=== PATIENT | male | born 1945 | race Caucasian/White ===

== ENCOUNTER 2019-04-02 11:15 | Day surgery (SDC) | payer MEDICARE ==
[2019-03-31 17:42] VITALS: BMI 30.8
[~2019-04-02 11:15] MED LIST: ALBUTEROL NEB (CONC) 2.5 MG/0.5 ML INHALATION ONE; ATROPINE SULFATE 0.4 MG/ML 1 ML VIAL IM ONE; LACTATED RINGERS 1,000 ML IV SCH; LIDOCAINE 1% 20 ML VIAL (10MG/ML) FOR IV START INTRADERMA PRN; LIDOCAINE 2% (PF) 20 MG/ML 5 ML VIAL INHALATION ONE; LIDOCAINE VISCOUS 300 MG/15 ML CUP MUCOUS MEM ONE; SODIUM CHLORIDE 0.9% 1,000 ML IV SCH
[2019-04-02 11:38] VITALS: RESP 16; TEMP 98.5
[2019-04-02] MEDS ORDERED: MIDAZOLAM 2 MG/2 ML VIAL ONE (12:33)
[2019-04-02] MEDS ORDERED: PROPOFOL 10 MG/ML 20 ML VIAL IV ONE (12:33)
[2019-04-02] MEDS ORDERED: fentaNYL (PF) 50 MCG/ML 2 ML AMP ONE (12:33)
[2019-04-02] MEDS ORDERED: LIDOCAINE 2% INJ 20 MG/ML INTRATRACH ONE (12:48)
[2019-04-02 13:17] VITALS: BP 133/73; PULSE 86
[2019-04-02 17:05] LABS: Appearance,BF Cloudy; Color,BF Colorless
[2019-04-02 18:30] LABS: Nucleated Cells, Body Fluid 856 /uL; RBC, Body Fluid 11 /uL
[2019-04-02 18:32] LABS: Mononuclear WBC,Body Fluid 1 %; Polynuclear WBC,Body Fluid 99 %; Total Cells Counted,Body Fluid 100
--- NOTE | 2019-04-02 23:47 | PCN ---
PROCEDURE NOTE PROCEDURE: Bronchoscopy, airway examination, therapeutic lavage, bronchoalveolar lavage, right middle lobe. PREOPERATIVE DIAGNOSIS: Chronic obstructive pulmonary disease exacerbation, retained secretions and purulent tracheobronchitis. POSTOPERATIVE DIAGNOSIS: Chronic obstructive pulmonary disease exacerbation, retained secretions and purulent tracheobronchitis. Magan Youssef CRNA, provided general anesthesia/unconscious sedation. PROCEDURE DESCRIPTION: The patient's procedure was done in room #1. There was informed consent. There was universal timeout. After the patient was adequately sedated and being fully monitored, the bronchoscope was inserted through the right nostril. It passed through the right nasopharynx into the oropharynx. The hypopharynx was identified and topicalized. The hypopharyngeal structures, including anterior commissure, true cords, false cords, arytenoids, piriform sinuses, right and left valleculae, all appeared relatively normal. There were some secretions noted in the hypopharynx. The glottic opening was topicalized. The bronchoscope was pushed through the glottic opening into the trachea. The trachea was full of secretions. They were purulent-looking. They were quite sticky. The trachea otherwise appeared relatively normal. The tracheal jp was sharp. Next, the right and left mainstem were topicalized. The right upper lobe and its 3 segments, the right middle lobe and its 2 segments, the right lower lobe and its 5 segments, the left upper lobe proper and its 2 segments, the lingula and its 2 segments, and the left lower lobe and its 4 segments were all evaluated. They had similar findings of diffuse moderate bronchitis throughout. There was no dominant mass or tumor. There was erythema and hyperemia of the airways. There was some mucosal friability. There were thick secretions noted throughout. The secretions were suctioned. The bronchoscope was wedged into the right middle lobe. The BAL took place. The patient tolerated the procedure well. Roughly 30 mL was recovered. In addition, additional saline was used to cleanse the rest of the airways. There were no immediate complications. There was no bleeding. The patient tolerated the procedure well and the bronchoscope was withdrawn. I did speak to the patient's about the findings. Additional recommendations and suggestions are forthcoming. MMODL / IJN: [id number] /
== END 2019-04-02 13:34 | disposition home or self-care (01) ==
LOC: ORWHC2ENDO 11:15
PROVIDERS: ATTEND Internal Medicine Critical Care Medicine
DX: J44.1 Chronic obstructive pulmonary disease with (acute) exacerbation (principal); J44.0 Chronic obstructive pulmonary disease with (acute) lower respiratory infection; J20.9 Acute bronchitis, unspecified; I10 Essential (primary) hypertension; G47.33 Obstructive sleep apnea (adult) (pediatric); Z87.891 Personal history of nicotine dependence; F32.9 Major depressive disorder, single episode, unspecified; G89.4 Chronic pain syndrome; Z79.51 Long term (current) use of inhaled steroids; Z79.899 Other long term (current) drug therapy; E66.9 Obesity, unspecified; Z68.32 Body mass index [BMI] 32.0-32.9, adult; Z80.1 Family history of malignant neoplasm of trachea, bronchus and lung; Z82.49 Family history of ischemic heart disease and other diseases of the circulatory system
CPT/HCPCS: 94640; 88108; 88305; 89050; 87252; 87070; 87205; 87116; 87102; 87206; 31624; J2001 ×2; J2250; J0461; J3010; J2704; 87496; 87498; 87502; 87529; 87634; 87798

== ENCOUNTER → 2019-07-25 | Outpatient (CLI) | payer MEDICARE | END | disposition home or self-care (01) | LOC: CPPFTMAIN 14:09 | PROVIDERS: ATTEND Internal Medicine Critical Care Medicine | DX: J43.9 Emphysema, unspecified (principal); R94.2 Abnormal results of pulmonary function studies | CPT/HCPCS: 94060; 94726; 94729 ==

== ENCOUNTER 2021-10-13 11:48 | Inpatient (IN) | payer MEDICARE ==
[2021-10-13] MEDS ORDERED: methylPREDNISolone SOD SUCCI 125 MG/2 ML VIAL IV STA (11:59)
[2021-10-13] MEDS ORDERED: ALBUTEROL HFA INHALER INHALATION STA (11:59)
--- NOTE | 2021-10-13 12:43 | ED ---
General Adult HPI - General Chief complaint: Shortness of Breath Stated complaint: low O2 Time Seen by Provider: 10/13/21 11:56 Source: patient, RN notes reviewed, old records reviewed Mode of arrival: wheelchair Limitations: no limitations - History of Present Illness Initial comments: 76 yo history of COPD presenting with 2 weeks of worsening cough and dyspnea. Patient is found to be in the mid 70s on initial pulse ox. He denies central chest pain. He denies fever. He is fully vaccinated against coronavirus. He denies lower extremity pain or swelling. He does follow with pulmonology regarding his COPD. - Related Data Home Medications Medication Instructions Recorded Confirmed Budesonide-Formot 160-4.5 Mcg 2 puff INHALATION RT-BID PRN 03/31/19 10/13/21 [Symbicort 160-4.5 Mcg Inhaler] HYDROcodone/APAP 10-325MG [Tower 1 tab PO Q6H 03/31/19 10/13/21 10-325] Metoprolol Succinate [Toprol XL] 25 mg PO DAILY@1600 03/31/19 10/13/21 Morphine Sulfate ER [Ms Contin] 15 mg PO BID@0600,1600 03/31/19 10/13/21 Pramipexole [Mirapex] 1 mg PO BID@0600,1600 03/31/19 10/13/21 Sertraline [Zoloft] 100 mg PO DAILY@1600 03/31/19 10/13/21 Tiotropium 18 Mcg/Puff [Spiriva] 1 cap INHALATION RT-DAILY 03/31/19 10/13/21 lisinopriL [Zestril] 10 mg PO DAILY@1600 03/31/19 10/13/21 Albuterol Inhaler [Ventolin Hfa 2 puff INHALATION RT-QID PRN 10/13/21 10/13/21 Inhaler] Allergies Allergy/AdvReac Type Severity Reaction Status Date / Time No Known Allergies Allergy Verified 10/13/21 12:55 Review of Systems ROS Statement: Those systems with pertinent positive or pertinent negative responses have been documented in the HPI. ROS Other: All systems not noted in ROS Statement are negative. Past Medical History Past Medical History: Cancer, COPD, Hypertension, Pneumonia, Sleep Apnea/CPAP/BIPAP Additional Past Medical History / Comment(s): degenerative disk disease, skin cancer History of Any Multi-Drug Resistant Organisms: None Reported Past Surgical History: Orthopedic Surgery Additional Past Surgical History / Comment(s): disk removed from neck, cyst removed from tailbone Past Anesthesia/Blood Transfusion Reactions: Previous Problems w/ Anesthesia Additional Past Anesthesia/Blood Transfusion Reaction / Comment(s): "blood pressure dropped" Past Psychological History: No Psychological Hx Reported Smoking Status: Former smoker Past Alcohol Use History: None Reported Past Drug Use History: None Reported - Past Family History Mother Family Medical History: No Reported History General Exam Limitations: no limitations General appearance: alert, in distress Head exam: Present: atraumatic, normocephalic Eye exam: Present: normal appearance, PERRL ENT exam: Present: normal exam Neck exam: Present: normal inspection. Absent: tenderness, meningismus Respiratory exam: Present: respiratory distress, wheezes, rhonchi Cardiovascular Exam: Present: tachycardia, irregular rhythm GI/Abdominal exam: Present: soft. Absent: distended, tenderness, guarding Extremities exam: Present: normal inspection, normal capillary refill. Absent: pedal edema Neurological exam: Present: alert, oriented X3, CN II-XII intact. Absent: motor sensory deficit Psychiatric exam: Present: normal affect, normal mood Skin exam: Present: warm, dry, intact, pallor. Absent: cyanosis, diaphoretic Course Vital Signs 10/13/21 10/13/21 10/13/21 11:50 12:05 12:35 Temperature 97.8 F Pulse Rate 115 H 108 H Respiratory 30 H 30 H 18 Rate Blood Pressure 139/74 88/58 O2 Sat by Pulse 75 L 95 Oximetry 10/13/21 13:11 Temperature Pulse Rate 112 H Respiratory 22 Rate Blood Pressure 81/65 O2 Sat by Pulse 94 L Oximetry - Reevaluation(s) Reevaluation #1: 10/13/21 14:50 Patient reevaluated, vital signs have improved. He is in sinus rhythm. Blood pressure is 111 systolic. Oxygenation in the mid to high 90s on BiPAP. EKG Findings - EKG Comments: EKG Findings:: EKG: Atrial fibrillation with RVR, rate of 138, QRS duration 74, QTC 5:15, no ST segment elevation. Medical Decision Making - Medical Decision Making 76-year-old male presenting in extremis. Patient is hypotensive, tachycardic and hypoxic upon arrival. He's been sick for approximately 2 weeks. He has bi lateral wheezing and rhonchi. She's initially started on nonrebreather awaiting for BiPAP for respiratory support in the emergency department. His chest x-ray shows a large airspace disease on the right and to a lesser degree on the left. No pneumothorax. Patient has significantly elevated white blood cell count at 25.6. He has an elevated d-dimer 7.48. CT angiography is performed to rule out pulmonary embolism. This is negative. Does have consolidated pneumonia possibly edema and a right-sided effusion. Patient has minimally elevated creatinine 1.53. Lactic acid 3.8. He has an elevated troponin 2.06. I feel this is likely related to hypoxia and demand secondary to atrial fibrillation. Case discussed with Dr. Griffin Patient was initially in atrial fibrillation with RVR does spontaneously convert to sinus rhythm with initial treatment. Given the elevated troponin is maintai gerardo on heparin. Repeat cardiac enzymes will be ordered. Dr. Betancourt is aware. Echo was ordered. - Lab Data Result diagrams: 10/13/21 12:12 10/13/21 12:53 Lab Results 10/13/21 10/13/21 10/13/21 Range/Units 12:12 12:12 12:12 WBC 25.6 H (3.8-10.6) k/uL RBC 4.82 (4.30-5.90) m/uL Hgb 15.9 (13.0-17.5) gm/dL Hct 48.6 (39.0-53.0) % MCV 100.9 H (80.0-100.0) fL MCH 33.0 (25.0-35.0) pg MCHC 32.7 (31.0-37.0) g/dL RDW 13.9 (11.5-15.5) % Plt Count 324 (150-450) k/uL MPV 8.4 Neutrophils % (Manual) 40 % Band Neuts % (Manual) 2 % Lymphocytes % (Manual) 12 % Monocytes % (Manual) 6 % Eosinophils % (Manual) 41 % Neutrophils # (Manual) 10.70 H (1.3-7.7) k/uL Lymphocytes # (Manual) 3.07 (1.0-4.8) k/uL Monocytes # (Manual) 1.54 H (0-1.0) k/uL Eosinophils # (Manual) 10.50 H (0-0.7) k/uL Nucleated RBCs 3 H (0-0) /100 WBC Manual Slide Review Performed Macrocytosis Slight PT 14.1 H (9.0-12.0) sec INR 1.4 H (<1.2) APTT 27.5 (22.0-30.0) sec D-Dimer 7.48 H (<0.60) mg/L FEU Sodium (137-145) mmol/L Potassium (3.5-5.1) mmol/L Chloride (98-107) mmol/L Carbon Dioxide (22-30) mmol/L Anion Gap mmol/L BUN (9-20) mg/dL Creatinine (0.66-1.25) mg/dL Est GFR (CKD-EPI)AfAm (>60 ml/min/1.73 sqM) Est GFR (CKD-EPI)NonAf (>60 ml/min/1.73 sqM) Glucose (74-99) mg/dL Lactic Ac Sepsis Rflx Plasma Lactic Acid Yobani 3.8 H* (0.7-2.0) mmol/L Calcium (8.4-10.2) mg/dL Magnesium (1.6-2.3) mg/dL Total Bilirubin (0.2-1.3) mg/dL AST (17-59) U/L ALT (4-49) U/L Alkaline Phosphatase (38-126) U/L Troponin I (0.000-0.034) ng/mL NT-Pro-B Natriuret Pep pg/mL Total Protein (6.3-8.2) g/dL Albumin (3.5-5.0) g/dL Coronavirus (PCR) (Not Detectd) 10/13/21 10/13/21 10/13/21 Range/Units 12:12 12:53 12:53 WBC (3.8-10.6) k/uL RBC (4.30-5.90) m/uL Hgb (13.0-17.5) gm/dL Hct (39.0-53.0) % MCV (80.0-100.0) fL MCH (25.0-35.0) pg MCHC (31.0-37.0) g/dL RDW (11.5-15.5) % Plt Count (150-450) k/uL MPV Neutrophils % (Manual) % Band Neuts % (Manual) % Lymphocytes % (Manual) % Monocytes % (Manual) % Eosinophils % (Manual) % Neutrophils # (Manual) (1.3-7.7) k/uL Lymphocytes # (Manual) (1.0-4.8) k/uL Monocytes # (Manual) (0-1.0) k/uL Eosinophils # (Manual) (0-0.7) k/uL Nucleated RBCs (0-0) /100 WBC Manual Slide Review Macrocytosis PT (9.0-12.0) sec INR (<1.2) APTT (22.0-30.0) sec D-Dimer (<0.60) mg/L FEU Sodium (137-145) mmol/L Potassium (3.5-5.1) mmol/L Chloride (98-107) mmol/L Carbon Dioxide (22-30) mmol/L Anion Gap mmol/L BUN (9-20) mg/dL Creatinine (0.66-1.25) mg/dL Est GFR (CKD-EPI)AfAm (>60 ml/min/1.73 sqM) Est GFR (CKD-EPI)NonAf (>60 ml/min/1.73 sqM) Glucose (74-99) mg/dL Lactic Ac Sepsis Rflx Plasma Lactic Acid Yobani (0.7-2.0) mmol/L Calcium (8.4-10.2) mg/dL Magnesium (1.6-2.3) mg/dL Total Bilirubin (0.2-1.3) mg/dL AST (17-59) U/L ALT (4-49) U/L Alkaline Phosphatase (38-126) U/L Troponin I 2.060 H* (0.000-0.034) ng/mL NT-Pro-B Natriuret Pep 6120 pg/mL Total Protein (6.3-8.2) g/dL Albumin (3.5-5.0) g/dL Coronavirus (PCR) Not Detected (Not Detectd) 10/13/21 10/13/21 Range/Units 12:53 12:56 WBC (3.8-10.6) k/uL RBC (4.30-5.90) m/uL Hgb (13.0-17.5) gm/dL Hct (39.0-53.0) % MCV (80.0-100.0) fL MCH (25.0-35.0) pg MCHC (31.0-37.0) g/dL RDW (11.5-15.5) % Plt Count (150-450) k/uL MPV Neutrophils % (Manual) % Band Neuts % (Manual) % Lymphocytes % (Manual) % Monocytes % (Manual) % Eosinophils % (Manual) % Neutrophils # (Manual) (1.3-7.7) k/uL Lymphocytes # (Manual) (1.0-4.8) k/uL Monocytes # (Manual) (0-1.0) k/uL Eosinophils # (Manual) (0-0.7) k/uL Nucleated RBCs (0-0) /100 WBC Manual Slide Review Macrocytosis PT (9.0-12.0) sec INR (<1.2) APTT (22.0-30.0) sec D-Dimer (<0.60) mg/L FEU Sodium 138 (137-145) mmol/L Potassium 4.2 (3.5-5.1) mmol/L Chloride 105 (98-107) mmol/L Carbon Dioxide 24 (22-30) mmol/L Anion Gap 9 mmol/L BUN 38 H (9-20) mg/dL Creatinine 1.53 H (0.66-1.25) mg/dL Est GFR (CKD-EPI)AfAm 51 (>60 ml/min/1.73 sqM) Est GFR (CKD-EPI)NonAf 44 (>60 ml/min/1.73 sqM) Glucose 102 H (74-99) mg/dL Lactic Ac Sepsis Rflx Y Plasma Lactic Acid Yobani (0.7-2.0) mmol/L Calcium 8.8 (8.4-10.2) mg/dL Magnesium 2.4 H (1.6-2.3) mg/dL Total Bilirubin 1.1 (0.2-1.3) mg/dL AST 55 (17-59) U/L ALT 45 (4-49) U/L Alkaline Phosphatase 77 (38-126) U/L Troponin I (0.000-0.034) ng/mL NT-Pro-B Natriuret Pep pg/mL Total Protein 7.0 (6.3-8.2) g/dL Albumin 3.0 L (3.5-5.0) g/dL Coronavirus (PCR) (Not Detectd) Critical Care Time Critical Care Time: Yes Total Critical Care Time: 35 Disposition Clinical Impression: Acute exacerbation of chronic obstructive pulmonary disease, Pneumonia, Elevated troponin, Atrial fibrillation with RVR Disposition: ADMITTED IP TO THIS [facility] Condition: Serious Is patient prescribed a controlled substance at d/c from ED?: No Referrals: Aly Sultana DO [Primary Care Provider] - 1-2 days Decision to Admit Reason: Admit from EC Decision Date: 10/13/21 Decision Time: 14:54
[2021-10-13 12:46] LABS: HCT 48.6 % (39.0-53.0); HGB 15.9 gm/dL (13.0-17.5); MCHC 32.7 g/dL (31.0-37.0); MCV 100.9 fL (80.0-100.0); Macrocytosis Slight; Mean Platelet Volume 8.4; Platelet Count 324 k/uL (150-450); RBC 4.82 m/uL (4.30-5.90); RDW 13.9 % (11.5-15.5)
[2021-10-13 12:54] LABS: INR 1.4 (<1.2); Partial Thromboplastin Time 27.5 sec (22.0-30.0); Prothrombin Time 14.1 sec (9.0-12.0)
--- NOTE | 2021-10-13 12:59 | XR ---
EXAMINATION TYPE: XR chest 1V portable DATE OF EXAM: 10/13/2021 COMPARISON: Chest x-ray 10/21/2013 HISTORY: Difficulty breathing, COPD and cough TECHNIQUE: Single frontal view of the chest is obtained. FINDINGS: Bilateral airspace disease is present on the right, present perihilar region on the left. There are overlying artifacts. Cardiac mediastinal silhouette is likely stable accounting for differe nces in technique. No evident pneumothorax or pleural effusion. Rib deformities in the upper chest on the right seen on prior x-ray are not well seen. Right hemidiaphragm is again elevated. IMPRESSION: Correlate for pneumonia, edema and follow-up is recommended to resolution
[2021-10-13] MEDS ORDERED: SODIUM CHLORIDE 0.9% 500 ML 500 ML IV ONE (13:05)
[2021-10-13] MEDS ORDERED: cefTRIAXone IN SWFI 1,000 MG/10 ML SYRINGE IVP STA (13:06)
[2021-10-13] MEDS ORDERED: AZITHROMYCIN 500 MG in SODIUM CHLORIDE 0.9% 250 ML IVPB STA (13:06)
[2021-10-13 13:23] LABS: Band Neutrophils % 2 %; Neutrophils % (M) 40 %; Nucleated Red Blood Cells 3 /100 WBC (0-0); Total Cells Counted 200
[2021-10-13 13:24] LABS: Lymphocytes # (M) 3.07 k/uL (1.0-4.8); Monocytes # (M) 1.54 k/uL (0-1.0); WBC 25.6 k/uL (3.8-10.6)
[2021-10-13 13:40] LABS: Calcium 8.8 mg/dL (8.4-10.2); Magnesium 2.4 mg/dL (1.6-2.3); Potassium 4.2 mmol/L (3.5-5.1); Total Bilirubin 1.1 mg/dL (0.2-1.3)
[2021-10-13] MEDS ORDERED: ASPIRIN 325 MG TAB PO STA (13:55)
[2021-10-13] MEDS ORDERED: HEPARIN SODIUM 1,000 UN/ML (10ML VL) IV ONE (14:16)
--- NOTE | 2021-10-13 14:32 | CT ---
EXAMINATION TYPE: CT angio chest DATE OF EXAM: 10/13/2021 COMPARISON: Radiograph same day HISTORY: 76-year-old male positive d-dimer, shortness of breath, difficulty breathing TECHNIQUE: Contiguous axial scanning of the chest performed with IV Contrast, patient injected with 8 0 mL of Isovue 370. Coronal and sagittal MIP reconstructions performed. CT DLP: 641.2 mGycm Automated exposure control for dose reduction was used. FINDINGS: Heart upper limits of normal in size. No reflux of contrast into the hepatic veins. There is a small- to-moderate pericardial effusion measuring up to 1.1 cm along the left heart margin. Scattered LAD coronary artery calcifications. 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 Ectasia upper descending thoracic aorta 3.4 cm. Conventional arch vessel branching anatomy. Satisfactory opacification of the pulmonary arterial system. Some limitation due to mild breathing mo tion. No definite pulmonary embolus. Large caliber to the main right and left pulmonary arteries pam uring up to 3.3 and 3.0 cm, respectively. There is mediastinal and bilateral hilar lymphadenopathy. Paratracheal nodes measure up to 1.8 cm. AP window nodes measure up to 1 cm. Subcarinal node measures up to 4.9 x 2.6 cm. Left tracheobronchial angle node measures 5.2 x 1.8 cm. Left infrahilar node measures 3.3 cm. Right hilar nodes measure up to 3.1 cm. Left hilar nodes measure up to 1.9 cm. Lower left paraesophageal nodes measure up to 1.3 cm. In the visualized upper abdomen, gastric hepatic ligament node measures up to 1.2 cm. Moderate centrilobular emphysema. More advanced bullous change in the right upper lobe. There is patchy and confluent consolidation throughout the right lung along with small right effusion . Patchy and confluent consolidation left lower lobe and some portions of the posterior left upper lo be. Round lesion upper pole right kidney measures 2.6 cm, likely cysts. Facet and gallstone partially vis ualized measuring 2 cm. Bones: Degenerative changes of the left shoulder. Moderate degenerative disc disease throughout the t horacic spine. Dextroconvex curvature mid thoracic spine. IMPRESSION: 1. SOME BREATHING MOTION. NO DEFINITE PULMONARY EMBOLUS. 2. COPD WITH MODERATE EMPHYSEMA. MORE ADVANCED BULLOUS CHANGE IN THE RIGHT UPPER LOBE. PULMONARY XIOMARA RIAL HYPERTENSION. 3. EXTENSIVE PATCHY AND CONFLUENT CONSOLIDATION THROUGHOUT THE RIGHT LUNG WITH A SMALL RIGHT PLEURAL EFFUSION. LESSER DEGREE OF AIRSPACE DISEASE LEFT LOWER LOBE AND SOME PARTS OF THE POSTERIOR LEFT UPPE R LOBE. CORRELATE FOR POSSIBLE ETIOLOGIES SUCH MULTIFOCAL PNEUMONIA, PULMONARY EDEMA, DEVELOPING A RDS, ASPIRATION, OR ATYPICAL INFECTIONS. 4. THE PRESENCE OF A MEDIASTINAL BILATERAL HILAR LYMPHADENOPATHY MEASURING UP TO 5.2 CM MAKES ATYPICA L FUNGAL OR MYCOBACTERIAL INFECTION HIGHER ON THE DIFFERENTIAL. APPROPRIATE FOLLOW-UP RECOMMENDED FOR THE LYMPHADENOPATHY LYMPHOMA AND METASTATIC DISEASE ARE NOT EXCLUDED AT THIS TIME. 5. [id number] PERICARDIAL EFFUSION.
[2021-10-13] MEDS ORDERED: IPRATROPIUM-ALBUTEROL 3 ML NEB INHALATION PRN (14:46)
[2021-10-13] MEDS: SODIUM CHLORIDE 0.9% 1,000 ML IV SCH (14:48)
[2021-10-13] MEDS ORDERED: HYDROcodone/APAP 10-325MG 1 EACH TAB PO ONE (14:52)
[2021-10-13] MEDS ORDERED: HYDROcodone/APAP 10-325MG 1 EACH TAB PO PRN (14:52)
[2021-10-13] MEDS: DILTIAZEM 125 MG in SODIUM CHLORIDE 0.9% 100 ML IV SCH ×2 (15:04→22:34)
[2021-10-13] MEDS: HEPARIN SOD,PORK IN 0.45% NACL 25,000 UNIT in 0.45% NACL 1 250ML.BAG IV SCH (15:07)
[2021-10-13] MEDS: IPRATROPIUM-ALBUTEROL 3 ML NEB INHALATION SCH ×2 (16:30→20:16)
[2021-10-13] MEDS: methylPREDNISolone SOD SUCCI 125 MG/2 ML VIAL IV SCH (19:58)
[2021-10-13] MEDS ORDERED: LACTULOSE 20 GM/30 ML CUP PO PRN (23:40)
[2021-10-13] MEDS ORDERED: NALOXONE 0.4 MG/ML 1 ML VIAL IV PRN (23:40)
[2021-10-13] MEDS ORDERED: ONDANSETRON 4 MG/2 ML VIAL IVP PRN (23:40)
[2021-10-13] MEDS ORDERED: ACETAMINOPHEN TAB 325 MG TAB PO PRN (23:40)
[2021-10-13] MEDS ORDERED: CALCIUM CARBONATE 500 MG CHEWABLE PO PRN (23:40)
[2021-10-13] MEDS ORDERED: MELATONIN 3 MG TABLET PO PRN (23:40)
--- NOTE | 2021-10-13 23:41 | P.HPIM ---
History of Present Illness H&P Date: 10/13/21 Chief Complaint: Short of breath This is a pleasant 76-year-old patient of Dr. Sultana. Chronic stable medical conditions include hypertension, also sleep apnea, DJD, obesity. Depression, Patient presented increasing shortness of breath for 1 week, wheezing. Cough fever periods Sputum Production. Decrease Appetite Tired Rundown. Symptoms Became Progressively Worse. Found to Pulse Ox of 75% in the ER. Put on a BiPAP. Antibiotics. Bronchodilators. Review of systems: GEN.: Fever decrease appetite EYES: None HEENT: None NECK: None RESPIRATORY: As above CARDIOVASCULAR: None GASTROINTESTINAL: None GENITOURINARY: None MUSCULOSKELETAL: [As above LYMPHATICS: None HEMATOLOGICAL: None PSYCHIATRY: None NEUROLOGICAL: None Past medical history to include: COPD, hypertension, obstructive sleep apnea, DJD, skin cancer Social history: . Smoked for 30 years stopped in 1979. Family history: Reviewed, noncontributory to presentation Physical examination: VITAL SIGNS: 97.8, 115, 30, 139 with 74, 75% room air GENERAL: BMI 30.8, reclining bed, awake, short of breath. EYES: Pupils equal. Conjunctiva normal. HEENT: External appearance of nose and ears normal, oral cavity grossly normal. NECK: JVD unable to assess; masses not palpable. HEART: First and second heart sounds are normal; no edema. LUNGS: Respiratory rate increased decreased breath sounds, coarse crackles in the right site posteriorly. ABDOMEN: Soft, nontender, liver spleen not palpable, no masses palpable. PSYCH: Alert and oriented x3; mood and affect normal. MUSCULOSKELETAL:No Clubbing/cyanosis;muscles-grossly intact NEUROLOGICAL: Cranial nerves grossly intact; no facial asymmetry, power and sensation grossly intact. LYMPHATICS: No lymph nodes palpable in the axilla and neck INVESTIGATIONS, reviewed in the clinical context: White count 25.6 hemoglobin 15.9 platelets 324 increased neutrophils d-dimer 7.48 sodium 138 potassium 4.2. 38 creatinine 1.53 lactic acid 3.8 Troponin I 2.0, 1.7, 1.2 Coronavirus [PCR]: Not detected EKG tracing personally reviewed by me-atrial fibrillation ST-T wave changes, rate 138 Chest angiogram chest: Moderate emphysema. Extensive patchy and confluent consolidation throughout the right lung. Some of the left side 2. Hilar lymp hadenopathy. Chest x-ray film personally reviewed by me-extensive infiltrate on the right mid zone and some on the left side Assessment and plan: -Severe bilateral pneumonia morsel in the right site suspect gram-negative organism Cefepime 2 g every 8 -Severe sepsis from pneumonia IV fluids. Antibiotics. -Atrial fibrillation rapid ventricular rate Beta valente. 2-D echo. Consult cardiology. IV heparin. IV Cardizem drip IV heparin monitoring Follow PTT -Acute COPD exacerbation and a prior smoker DuoNeb. IV Solu-Medrol -Acute severe hypoxic respiratory failure from pneumonia Currently on BiPAP -Essential hypertension Cystoscopy 10 mg daily Toprol-XL 25 mg daily -Restless leg syndrome Mirapex 1 mg twice a day -Depression Zoloft 100 mg daily Primary osteoarthritis multiple joints bilaterally Ralston 10 every 6 IV cefepime. IV Solu-Medrol. Bronchodilators. Resume home medications. Consult pulmonary. BiPAP. Care was discussed with the patient. Given the complexity and severity of patient's condition expect the patient to be in the hospital at least for 2 overnights Past Medical History Past Medical History: Cancer, COPD, Hypertension, Pneumonia, Sleep Apnea/CPAP/BIPAP Additional Past Medical History / Comment(s): degenerative disk disease, skin cancer History of Any Multi-Drug Resistant Organisms: None Reported Past Surgical History: Orthopedic Surgery Additional Past Surgical History / Comment(s): disk removed from neck, cyst removed from tailbone Past Anesthesia/Blood Transfusion Reactions: Previous Problems w/ Anesthesia Additional Past Anesthesia/Blood Transfusion Reaction / Comment(s): "blood pressure dropped" Past Psychological History: No Psychological Hx Reported Smoking Status: Former smoker Past Alcohol Use History: None Reported Past Drug Use History: None Reported - Past Family History Mother Family Medical History: No Reported History Medications and Allergies Home Medications Medication Instructions Recorded Confirmed Type Budesonide-Formot 160-4.5 Mcg 2 puff INHALATION RT-BID PRN 03/31/19 10/13/21 History [Symbicort 160-4.5 Mcg Inhaler] HYDROcodone/APAP 10-325MG [Ralston 1 tab PO Q6H 03/31/19 10/13/21 History 10-325] Metoprolol Succinate [Toprol XL] 25 mg PO DAILY@1600 03/31/19 10/13/21 History Morphine Sulfate ER [Ms Contin] 15 mg PO BID@0600,1600 03/31/19 10/13/21 History Pramipexole [Mirapex] 1 mg PO BID@0600,1600 03/31/19 10/13/21 History Sertraline [Zoloft] 100 mg PO DAILY@1600 03/31/19 10/13/21 History Tiotropium 18 Mcg/Puff [Spiriva] 1 cap INHALATION RT-DAILY 03/31/19 10/13/21 History lisinopriL [Zestril] 10 mg PO DAILY@159903/31/19 10/13/21 History Albuterol Inhaler [Ventolin Hfa 2 puff INHALATION RT-QID PRN 10/13/21 10/13/21 History Inhaler] Allergies Allergy/AdvReac Type Severity Reaction Status Date / Time No Known Allergies Allergy Verified 10/13/21 12:55 Physical Exam Vitals: Vital Signs Temp Pulse Resp BP Pulse Ox 10/13/21 23:14 134 H 13 104/63 93 L 10/13/21 22:35 125 H 18 100/88 92 L 10/13/21 20:29 121 H 10/13/21 20:21 124 H 10/13/21 19:30 97.4 F L 101 H 20 119/94 94 L 10/13/21 18:25 120 H 20 116/95 93 L 10/13/21 17:10 102 H 20 136/90 93 L 10/13/21 16:05 82 20 113/87 93 L 10/13/21 15:10 65 20 118/55 95 10/13/21 14:10 70 20 112/82 94 L 10/13/21 13:11 112 H 22 81/65 94 L 10/13/21 12:35 108 H 18 88/58 95 10/13/21 12:05 30 H 10/13/21 11:50 97.8 F 115 H 30 H 139/74 75 L Intake and Output 10/13/21 10/13/21 10/14/21 14:59 22:59 06:59 Other: Weight 108.862 kg Results CBC & Chem 7: 10/13/21 12:12 10/13/21 12:53 Labs: Abnormal Lab Results - Last 24 Hours (Table) 10/13/21 10/13/21 10/13/21 Range/Units 12:12 12:12 12:12 WBC 25.6 H (3.8-10.6) k/uL MCV 100.9 H (80.0-100.0) fL Neutrophils # (Manual) 10.70 H (1.3-7.7) k/uL Monocytes # (Manual) 1.54 H (0-1.0) k/uL Eosinophils # (Manual) 10.50 H (0-0.7) k/uL Nucleated RBCs 3 H (0-0) /100 WBC PT 14.1 H (9.0-12.0) sec INR 1.4 H (<1.2) APTT (22.0-30.0) sec D-Dimer 7.48 H (<0.60) mg/L FEU BUN (9-20) mg/dL Creatinine (0.66-1.25) mg/dL Glucose (74-99) mg/dL Plasma Lactic Acid Yobani 3.8 H* (0.7-2.0) mmol/L Magnesium (1.6-2.3) mg/dL Troponin I (0.000-0.034) ng/mL Albumin (3.5-5.0) g/dL 10/13/21 10/13/21 10/13/21 Range/Units 12:53 12:53 15:23 WBC (3.8-10.6) k/uL MCV (80.0-100.0) fL Neutrophils # (Manual) (1.3-7.7) k/uL Monocytes # (Manual) (0-1.0) k/uL Eosinophils # (Manual) (0-0.7) k/uL Nucleated RBCs (0-0) /100 WBC PT (9.0-12.0) sec INR (<1.2) APTT (22.0-30.0) sec D-Dimer (<0.60) mg/L FEU BUN 38 H (9-20) mg/dL Creatinine 1.53 H (0.66-1.25) mg/dL Glucose 102 H (74-99) mg/dL Plasma Lactic Acid Yobani (0.7-2.0) mmol/L Magnesium 2.4 H (1.6-2.3) mg/dL Troponin I 2.060 H* 1.740 H* (0.000-0.034) ng/mL Albumin 3.0 L (3.5-5.0) g/dL 10/13/21 10/13/21 Range/Units 18:25 20:30 WBC (3.8-10.6) k/uL MCV (80.0-100.0) fL Neutrophils # (Manual) (1.3-7.7) k/uL Monocytes # (Manual) (0-1.0) k/uL Eosinophils # (Manual) (0-0.7) k/uL Nucleated RBCs (0-0) /100 WBC PT (9.0-12.0) sec INR (<1.2) APTT 44.1 H (22.0-30.0) sec D-Dimer (<0.60) mg/L FEU BUN (9-20) mg/dL Creatinine (0.66-1.25) mg/dL Glucose (74-99) mg/dL Plasma Lactic Acid Yobani (0.7-2.0) mmol/L Magnesium (1.6-2.3) mg/dL Troponin I 1.240 H* (0.000-0.034) ng/mL Albumin (3.5-5.0) g/dL
[2021-10-13] MEDS ORDERED: CEFEPIME 2 GM in SODIUM CHLORIDE 0.9% 100 ML IVPB ONE (23:45)
[2021-10-14] MEDS: HYDROcodone/APAP 10-325MG 1 EACH TAB PO SCH ×5 (02:45→23:19)
[2021-10-14] MEDS: MORPHINE SULFATE ER 15 MG TABLET PO SCH ×2 (06:20→18:20)
[2021-10-14] MEDS: PRAMIPEXOLE 1 MG TAB PO SCH ×2 (06:20→15:31)
[2021-10-14 06:51] LABS: Basophils # (A) 0.1 k/uL (0-0.2); Basophils % (A) 0 %; Eosinophils # (A) 0.6 k/uL (0-0.7); Eosinophils % (A) 3 %; HCT 42.1 % (39.0-53.0); Hypochromasia Slight; Lymphocytes # (A) 2.8 k/uL (1.0-4.8); Lymphocytes % (A) 13 %; MCH 31.8 pg (25.0-35.0); MCHC 30.9 g/dL (31.0-37.0); MCV 102.7 fL (80.0-100.0); Macrocytosis Slight; Mean Platelet Volume 8.1; Monocytes # (A) 0.5 k/uL (0-1.0); Monocytes % (A) 2 %; Neutrophils # (A) 17.7 k/uL (1.3-7.7); Neutrophils % (A) 80 %; Platelet Count 326 k/uL (150-450); RDW 14.4 % (11.5-15.5)
[2021-10-14 06:55] LABS: INR 1.2 (<1.2); Partial Thromboplastin Time 38.3 sec (22.0-30.0)
[2021-10-14] MEDS: IPRATROPIUM-ALBUTEROL 3 ML NEB INHALATION SCH ×4 (07:14→19:26)
[2021-10-14] MEDS: HEPARIN SODIUM 1,000 UN/ML (10ML VL) IV PRN ×2 (07:15→07:18)
[2021-10-14] MEDS: methylPREDNISolone SOD SUCCI 125 MG/2 ML VIAL IV SCH ×2 (07:49→07:52)
--- NOTE | 2021-10-14 08:02 | P.CRDCN ---
History of Present Illness Consult date: 10/14/21 Chief complaint: Shortness of breath History of present illness: This is a 76-year-old gentleman with a past medical history significant for hype rtension and dyslipidemia and sleep apnea and also chronic obstructive pulmonary disease, presented to the emergency department complaining of shortness of breath. We consulted to see the patient for further evaluation of abnormal cardiac enzymes and elevated troponin. The patient states that for the last few days he has not been feeding well. He has been experiencing increasing in the temperature associated with cough productive of sputum. Beside that he was experiencing increasing in the shortness of breath but no symptoms of chest pain or chest discomfort and no dizziness or lightheadedness or any feeling of heart racing or fluttering or presyncope or syncope. In the ER the patient was found to be hypoxic with oxygen saturation of 75% and subsequently he was placed on BiPAP with improvement in his oxygenation. Also he presented to the emergency department he was in atrial fibrillation with RVR and subsequently converted to normal sinus mechanism after he was started on Cardizem IV. Currently he is in sinus rhythm was sinus bradycardia. He still on Cardizem IV. He is also on heparin IV. The patient underwent a workup including EKG as described earlier showing A. fib with diffuse nonspecific ST and T wave abnormalities. No EKG after the patient was converted to normal sinus mechanism. Also the troponin came in to be elevated. The chest x-ray showed findings consistent with a pneumonia. He underwent a computed tomography scan of the chest which showed multiple findings including no pulmonary embolism, bilateral hilar adenopathy, bilateral infiltrate, and also small to moderate pericardial effusion, heart failure. The patient has no history of coronary artery disease or congestive heart failure or any cardiac arrhythmia and never seen any set designer in the past. When he was seen and examined he was in bilateral expiratory wheezing with regular heart sounds and states bilateral lower extremities edema Past Medical History Past Medical History: Cancer, COPD, Hypertension, Pneumonia, Sleep Apnea/CPAP/BIPAP Additional Past Medical History / Comment(s): degenerative disk disease, skin c ancer History of Any Multi-Drug Resistant Organisms: None Reported Past Surgical History: Orthopedic Surgery Additional Past Surgical History / Comment(s): disk removed from neck, cyst removed from tailbone Past Anesthesia/Blood Transfusion Reactions: Previous Problems w/ Anesthesia Additional Past Anesthesia/Blood Transfusion Reaction / Comment(s): "blood pressure dropped" Past Psychological History: No Psychological Hx Reported Smoking Status: Former smoker Past Alcohol Use History: None Reported Past Drug Use History: None Reported - Past Family History Mother Family Medical History: No Reported History Medications and Allergies Home Medications Medication Instructions Recorded Confirmed Type Budesonide-Formot 160-4.5 Mcg 2 puff INHALATION RT-BID PRN 03/31/19 10/13/21 History [Symbicort 160-4.5 Mcg Inhaler] HYDROcodone/APAP 10-325MG [[place] 1 tab PO Q6H 03/31/19 10/13/21 History 10-325] Metoprolol Succinate [Toprol XL] 25 mg PO DAILY@1600 03/31/19 10/13/21 History Morphine Sulfate ER [Ms Contin] 15 mg PO BID@0600,1600 03/31/19 10/13/21 History Pramipexole [Mirapex] 1 mg PO BID@0600,1600 03/31/19 10/13/21 History Sertraline [Zoloft] 100 mg PO DAILY@1600 03/31/19 10/13/21 History Tiotropium 18 Mcg/Puff [Spiriva] 1 cap INHALATION RT-DAILY 03/31/19 10/13/21 History lisinopriL [Zestril] 10 mg PO DAILY@1600 03/31/19 10/13/21 History Albuterol Inhaler [Ventolin Hfa 2 puff INHALATION RT-QID PRN 10/13/21 10/13/21 History Inhaler] Allergies Allergy/AdvReac Type Severity Reaction Status Date / Time No Known Allergies Allergy Verified 10/13/21 12:55 Physical Exam Vitals: Vital Signs Temp Pulse Resp BP Pulse Ox 10/14/21 07:30 62 10/14/21 07:15 59 L 10/14/21 06:12 61 18 110/64 93 L 10/14/21 04:52 85 16 117/68 94 L 10/14/21 03:53 131 H 18 117/86 92 L 10/14/21 02:51 129 H 18 111/85 94 L 10/14/21 01:26 133 H 18 110/77 91 L 10/14/21 00:38 134 H 18 113/73 93 L 10/13/21 23:14 134 H 13 104/63 93 L 10/13/21 22:35 125 H 18 100/88 92 L 10/13/21 20:29 121 H 10/13/21 20:21 124 H 10/13/21 19:30 97.4 F L 101 H 20 119/94 94 L 10/13/21 18:25 120 H 20 116/95 93 L 10/13/21 17:10 102 H 20 136/90 93 L 10/13/21 16:05 82 20 113/87 93 L 10/13/21 15:10 65 20 118/55 95 10/13/21 14:10 70 20 112/82 94 L 10/13/21 13:11 112 H 22 81/65 94 L 10/13/21 12:35 108 H 18 88/58 95 10/13/21 12:05 30 H 10/13/21 11:50 97.8 F 115 H 30 H 139/74 75 L Intake and Output 10/13/21 10/14/21 10/14/21 22:59 06:59 14:59 Intake Total 161 Balance 161 Intake: Intake, IV Titration 161 Amount Heparin Sod,Pork in 0.45% 161 NaCl 25,000 unit In 0.45 % NaCl 1 250ml.bag @ 9. 186 UNITS/KG/HR 10 mls/hr IV .Q24H [facility] Rx#: [id number] - Constitutional General appearance: no acute distress - Respiratory Respiratory: bilateral: wheezing - Cardiovascular Rhythm: regular Results 10/14/21 06:32 10/13/21 12:53 Cardiac Enzymes 10/13/21 10/13/21 10/13/21 Range/Units 12:53 12:53 15:23 AST 55 (17-59) U/L Troponin I 2.060 H* 1.740 H* (0.000-0.034) ng/mL 10/13/21 Range/Units 18:25 AST (17-59) U/L Troponin I 1.240 H* (0.000-0.034) ng/mL Coagulation 10/13/21 10/13/21 10/14/21 Range/Units 12:12 20:30 06:32 PT 14.1 H 13.0 H (9.0-12.0) sec APTT 27.5 44.1 H 38.3 H (22.0-30.0) sec CBC 10/13/21 10/14/21 Range/Units 12:12 06:32 WBC 25.6 H 22.0 H (3.8-10.6) k/uL RBC 4.82 4.10 L (4.30-5.90) m/uL Hgb 15.9 13.0 (13.0-17.5) gm/dL Hct 48.6 42.1 (39.0-53.0) % Plt Count 324 326 (150-450) k/uL Comprehensive Metabolic Panel 10/13/21 Range/Units 12:53 Sodium 138 (137-145) mmol/L Potassium 4.2 (3.5-5.1) mmol/L Chloride 105 (98-107) mmol/L Carbon Dioxide 24 (22-30) mmol/L BUN 38 H (9-20) mg/dL Creatinine 1.53 H (0.66-1.25) mg/dL Glucose 102 H (74-99) mg/dL Calcium 8.8 (8.4-10.2) mg/dL AST 55 (17-59) U/L ALT 45 (4-49) U/L Alkaline Phosphatase 77 (38-126) U/L Total Protein 7.0 (6.3-8.2) g/dL Albumin 3.0 L (3.5-5.0) g/dL Current Medications Generic Name Dose Route Start Last Admin Trade Name Freq PRN Reason Stop Dose Admin Acetaminophen 650 mg 10/13/21 23:40 Acetaminophen Tab 325 Mg Tab PO Q6HR PRN Mild Pain or Fever > 100.5 Hydrocodone Bitart/Acetaminophen 1 each 10/13/21 14:52 Hydrocodone/Apap 10-325mg 1 Each Tab PO Q8HR PRN Pain Hydrocodone Bitart/Acetaminophen 1 each 10/13/21 23:45 10/14/21 02:45 Hydrocodone/Apap 10-325mg 1 Each Tab PO 1 each Q6H [facility]TA[facility] Administration Albuterol/Ipratropium 3 ml 10/13/21 14:46 Ipratropium-Albuterol 3 Ml Neb INHALATION RT-Q4H PRN Shortness Of Breath Or Wheezing Albuterol/Ipratropium 3 ml 10/13/21 16:00 10/14/21 07:14 Ipratropium-Albuterol 3 Ml Neb INHALATION 3 ml RT-QID [facility]TAZAR Administration Alprazolam 0.25 mg 10/13/21 23:40 Alprazolam 0.25 Mg Tab PO Q6HR PRN Anxiety Atorvastatin Calcium 80 mg 10/14/21 21:00 Atorvastatin 80 Mg Tab PO HS [facility] Calcium Carbonate/Glycine 1,000 mg 10/13/21 23:40 Calcium Carbonate 500 Mg Chewable PO Q4HR PRN Dyspepsia Heparin Sodium (Porcine) 0 unit 10/13/21 14:16 10/14/21 07:18 Heparin Sodium 1,000 Un/Ml (10ml Vl) IV 2,700 unit PER PROTOCOL PRN Administration Low PTT Protocol Sodium Chloride 1,000 mls @ 130 mls/hr 10/13/21 13:15 10/13/21 14:48 Saline 0.9% IV 130 mls/hr .Q7H42M [facility] Administration Heparin Sodium/Sodium Chloride 250 mls @ 10 mls/hr 10/13/21 14:30 10/14/21 07:13 25,000 unit/ Sodium Chloride IV 11.02 units/kg/hr .Q24H [facility] 12 mls/hr Titration Protocol 9.186 UNITS/KG/HR Cefepime HCl 2 gm/ Sodium 100 mls @ 25 mls/hr 10/14/21 15:00 Chloride IVPB Q12H [facility] Lactulose 20 gm 10/13/21 23:40 Lactulose 20 Gm/30 Ml Cup PO DAILY PRN Constipation Melatonin 3 mg 10/13/21 23:40 Melatonin 3 Mg Tablet PO HS PRN Insomnia Methylprednisolone Sodium Succinate 60 mg 10/13/21 18:00 10/14/21 07:52 Methylprednisolone Sod Succi 125 Mg/2 Ml Vial IV 60 mg Q6HR [facility] Administration Metoprolol Succinate 25 mg 10/14/21 16:00 Metoprolol Succinate (Er) 25 Mg Tab.Er.24h PO DAILY@1600 [facility] Morphine Sulfate 15 mg 10/14/21 06:00 10/14/21 06:20 Morphine Sulfate Er 15 Mg Tablet PO 15 mg BID@0600,1600 [facility] Administration Protocol Naloxone HCl 0.2 mg 10/13/21 23:40 Naloxone 0.4 Mg/Ml 1 Ml Vial IV Q2M PRN Opioid Reversal Ondansetron HCl 4 mg 10/13/21 23:40 Ondansetron 4 Mg/2 Ml Vial IVP Q8HR PRN Nausea And Vomiting Pramipexole Dihydrochloride 1 mg 10/14/21 06:00 10/14/21 06:20 Pramipexole 1 Mg Tab PO 1 mg BID@0600,1600 [facility] Administration Sertraline HCl 100 mg 10/14/21 16:00 Sertraline 100 Mg Tab PO DAILY@1600 [facility] Intake and Output 10/13/21 10/14/21 10/14/21 22:59 06:59 14:59 Intake Total 161 Balance 161 Intake: Intake, IV Titration 161 Amount Heparin Sod,Pork in 0.45% 161 NaCl 25,000 unit In 0.45 % NaCl 1 250ml.bag @ 9. 186 UNITS/KG/HR 10 mls/hr IV .Q24H [facility] Rx#: [id number] 10/14/21 06:32 10/13/21 12:53 Assessment and Plan Assessment: Assessment #1 bilateral pneumonia #2 chronic obstructive pulmonary disease exacerbation #3 hypoxemia secondary to the above #4 evidence of myocardial injury documented by abnormal troponin #5 atrial fibrillation with rapid ventricular response, this is new diagnosed as the patient #6 multiple comorbid conditions Plan #1 the patient is getting treated for the pneumonia #2 continue the IV heparin for additional 24 hours #3 consider after that switching the patient to oral anticoagulation for the atrial fibrillation #4 continue aspirin #5 consider medical treatment for the abnormal troponin at this point in the absence of chest pain and absence of EKG changes consistent with ischemia. #6 follow up on the echo to assess the LV ejection fraction and for any wall motion abnormalities concerning for ischemia. Further recommendation after that #7 the patient does not seem to be in overt congestive heart failure at this point #8 follow-up with the patient
--- NOTE | 2021-10-14 08:35 | XR ---
EXAMINATION TYPE: XR chest 1V portable DATE OF EXAM: 10/14/2021 COMPARISON: Chest x-ray 10/13/2021, CT 10/13/2021 HISTORY: Pneumonia, cough and shortness of breath TECHNIQUE: Single frontal view of the chest is obtained. FINDINGS: Findings are similar to prior exam. Bilateral airspace disease right greater than left is noted. Heart size is stable. Right hemidiaphragm is elevated. Technique is apical lordotic. There are overlying artifacts. No evident pneumothorax or pleural effusion. There is mediastinal and hilar corky nopathy IMPRESSION: Correlate for bilateral pneumonia right greater than left. There is underlying emphysema .
[2021-10-14] MEDS: SODIUM CHLORIDE 0.9% 1,000 ML IV SCH ×4 (08:46→20:56)
--- NOTE | 2021-10-14 10:39 | P.CNPUL ---
History of Present Illness Consult date: 10/14/21 Requesting physician: Saurav Teixeira Reason for consult: dyspnea, cough, COPD, hypoxemia, pneumonia, abnormal CXR/CT Chief complaint: Shortness of breath, pneumonia. History of present illness: Pulmonary consult dated 10/14/2021. 76-year-old male with a history of COPD, who presents to the emergency department on October 13, complaining of shortness of breath. The patient also complains of cough, dizziness, fever, chills, and phlegm production. The patient has been feeling well as mentioned above for at least 2-3 weeks. The patient was evaluated in the emergency department. He was found have atrial fibrillation with rapid ventricular response. In addition, his chest x-ray and CAT scan suggested pneumonia, with significant consolidation and abnormalities noted more so in the right lung that in the left. The patient has been vaccinated fully. We saw him in the emergency department, room 6, he was on BiPAP, with settings of IPAP 12, EPAP 6, and 60%. The patient was on IV heparin via weight based protocol, and a Cardizem drip at 15 mg an hour. The patient was lying flat in bed. He did not appear to have a great deal of respiratory difficulty. White count 22,000, hemoglobin 13, hematocrit 42.1, platelet count 326,000. PT 13, INR 1.2, PTT 38.3. D-dimer was 7.48. Sodium, potassium, chloride, CO2, and anion gap are all normal BUN was 38 creatinine of 1.53. Troponin was elevated at 2.06, 1.74, and 1.24. Testing for mae virus was negative. He was no pulmonary embolism on CT angiogram. In addition, there was mediastinal bilateral hilar lymphadenopathy, measuring up to 5.2 cm. Review of Systems REVIEW OF SYSTEMS: CONSTITUTIONAL: Fever and chills. NEUROLOGIC: Dizziness. HEENT: [ Negative.] CARDIAC: [Negative.] PULMONARY: Shortness of breath, cough, and phlegm production. GI: [Negative.] : [Negative.] RHEUMATOLOGIC: [ Negative.] IMMUNOLOGIC: [ Negative.] ENDOCRINE: [Negative. ] DERMATOLOGIC: [Negative.] Past Medical History Past Medical History: Cancer, COPD, Hypertension, Osteoarthritis (OA), Pneumonia, Sleep Apnea/CPAP/BIPAP Additional Past Medical History / Comment(s): Tracheobronchitis, PHU/pt states no device used, degenerative disk disease, arthritis in multiple joints, RLS, skin cancer History of Any Multi-Drug Resistant Organisms: None Reported Past Surgical History: Hernia Repair, Orthopedic Surgery Additional Past Surgical History / Comment(s): Cervical disc removed, cyst removed from tailbone, bronch/BAL, UVPPP, R inguinal hernia repair, skin cancer removal. Past Anesthesia/Blood Transfusion Reactions: Previous Problems w/ Anesthesia Additional Past Anesthesia/Blood Transfusion Reaction / Comment(s): "blood pressure dropped" Past Psychological History: Depression Additional Psychological History / Comment(s): Pt resides with his spouse. He uses a cane. Smoking Status: Former smoker Past Alcohol Use History: None Reported Additional Past Alcohol Use History / Comment(s): Pt started smoking in 1978 and quit in 1993 Past Drug Use History: None Reported - Past Family History Mother Family Medical History: No Reported History Father Additional Family Medical History / Comment(s): Heart disease. Medications and Allergies Home Medications Medication Instructions Recorded Confirmed Type Budesonide-Formot 160-4.5 Mcg 2 puff INHALATION RT-BID PRN 03/31/19 10/13/21 History [Symbicort 160-4.5 Mcg Inhaler] HYDROcodone/APAP 10-325MG [[place] 1 tab PO Q6H 03/31/19 10/13/21 History 10-325] Metoprolol Succinate [Toprol XL] 25 mg PO DAILY@159903/31/19 10/13/21 History Morphine Sulfate ER [Ms Contin] 15 mg PO BID@0600,159903/31/19 10/13/21 History Pramipexole [Mirapex] 1 mg PO BID@0600,159903/31/19 10/13/21 History Sertraline [Zoloft] 100 mg PO DAILY@159903/31/19 10/13/21 History Tiotropium 18 Mcg/Puff [Spiriva] 1 cap INHALATION RT-DAILY 03/31/19 10/13/21 History lisinopriL [Zestril] 10 mg PO DAILY@159903/31/19 10/13/21 History Albuterol Inhaler [Ventolin Hfa 2 puff INHALATION RT-QID PRN 10/13/21 10/13/21 History Inhaler] Allergies Allergy/AdvReac Type Severity Reaction Status Date / Time No Known Allergies Allergy Verified 10/13/21 12:55 Physical Exam Osteopathic Statement: *. No significant issues noted on an osteopathic structural exam other than those noted in the History and Physical/Consult. Vitals: Vital Signs Temp Pulse Resp BP Pulse Ox 10/14/21 07:30 62 10/14/21 07:15 59 L 10/14/21 07:00 62 16 118/66 92 L 10/14/21 06:12 61 18 110/64 93 L 10/14/21 04:52 85 16 117/68 94 L 10/14/21 03:53 131 H 18 117/86 92 L 10/14/21 02:51 129 H 18 111/85 94 L 10/14/21 01:26 133 H 18 110/77 91 L 10/14/21 00:38 134 H 18 113/73 93 L 10/13/21 23:14 134 H 13 104/63 93 L 10/13/21 22:35 125 H 18 100/88 92 L 10/13/21 20:29 121 H 10/13/21 20:21 124 H 10/13/21 19:30 97.4 F L 101 H 20 119/94 94 L 10/13/21 18:25 120 H 20 116/95 93 L 10/13/21 17:10 102 H 20 136/90 93 L 10/13/21 16:05 82 20 113/87 93 L 10/13/21 15:10 65 20 118/55 95 10/13/21 14:10 70 20 112/82 94 L 10/13/21 13:11 112 H 22 81/65 94 L 10/13/21 12:35 108 H 18 88/58 95 10/13/21 12:05 30 H 10/13/21 11:50 97.8 F 115 H 30 H 139/74 75 L Intake and Output 10/13/21 10/14/21 10/14/21 22:59 06:59 14:59 Intake Total 161 Balance 161 Intake: Intake, IV Titration 161 Amount Heparin Sod,Pork in 0.45% 161 NaCl 25,000 unit In 0.45 % NaCl 1 250ml.bag @ 9. 186 UNITS/KG/HR 10 mls/hr IV .Q24H [facility] Rx#: [id number] Other: Weight 108.862 kg No acute distress, oriented 3. The patient is currently on BiPAP. No obvious respiratory distress. HEENT examination is grossly unremarkable. Neck supple. Full range of motion. No adenopathy thyromegaly or neck vein distention. Cardiovascular examination reveals regular rhythm rate. S1-S2 normal. No S3 or S4. No discernible murmur noted. Heart sounds are distant. Heart rate 62 bpm. Lungs reveal coarse bilateral rhonchi. Scattered crackles noted. No wheezes. Breath sounds equal bilaterally. Saturations are 92-93%. Abdomen soft bowel sounds are heard. No masses or tenderness. Extremities are intact. No cyanosis clubbing or edema. Skin is without rash or lesion. Neurologic examination is brief but nonfocal. Results - Laboratory Findings CBC and BMP: 10/14/21 06:32 10/13/21 12:53 PT/INR, D-dimer PT 13.0 sec (9.0-12.0) H 10/14/21 06:32 INR 1.2 (<1.2) H 10/14/21 06:32 D-Dimer 7.48 mg/L FEU (<0.60) H 10/13/21 12:12 Abnormal lab findings: Abnormal Labs 10/13/21 10/13/21 10/13/21 12:12 12:12 12:12 WBC 25.6 H RBC MCV 100.9 H MCHC Neutrophils # Neutrophils # (Manual) 10.70 H Monocytes # (Manual) 1.54 H Eosinophils # (Manual) 10.50 H Nucleated RBCs 3 H PT 14.1 H INR 1.4 H APTT D-Dimer 7.48 H BUN Creatinine Glucose Plasma Lactic Acid Yobani 3.8 H* Magnesium Troponin I Albumin 10/13/21 10/13/21 10/13/21 12:53 12:53 15:23 WBC RBC MCV MCHC Neutrophils # Neutrophils # (Manual) Monocytes # (Manual) Eosinophils # (Manual) Nucleated RBCs PT INR APTT D-Dimer BUN 38 H Creatinine 1.53 H Glucose 102 H Plasma Lactic Acid Yobani Magnesium 2.4 H Troponin I 2.060 H* 1.740 H* Albumin 3.0 L 10/13/21 10/13/21 10/14/21 18:25 20:30 06:32 WBC 22.0 H RBC 4.10 L MCV 102.7 H MCHC 30.9 L Neutrophils # 17.7 H Neutrophils # (Manual) Monocytes # (Manual) Eosinophils # (Manual) Nucleated RBCs PT INR APTT 44.1 H D-Dimer BUN Creatinine Glucose Plasma Lactic Acid Yobani Magnesium Troponin I 1.240 H* Albumin 10/14/21 06:32 WBC RBC MCV MCHC Neutrophils # Neutrophils # (Manual) Monocytes # (Manual) Eosinophils # (Manual) Nucleated RBCs PT 13.0 H INR 1.2 H APTT 38.3 H D-Dimer BUN Creatinine Glucose Plasma Lactic Acid Yobnai Magnesium Troponin I Albumin - Diagnostic Findings Chest x-ray: image reviewed CT scan - chest: image reviewed Assessment and Plan Assessment: Hypoxemic respiratory failure, multifactorial, in part related to bilateral pneumonia, right greater than left, as well as atrial fibrillation with RVR. Elevated troponins, which may reflect non-ST segment elevation myocardial infarctions, versus supply/demand mismatch. Mild/moderate acute kidney injury. History of COPD. History of hypertension. History of obstructive sleep apnea syndrome. History of skin cancer. Prior history of pneumonia. Prior history of tobacco use. Plan: Plan dated 10/14/2021. The patient is started on azithromycin and Rocephin. Corticosteroids are discontinued. Symbicort is added. The patient is on breathing treatments, in addition, the patient is on IV heparin and Cardizem, as per cardiology. We will continue to follow and make recommendations where appropriate. Prognosis is guarded. Additional recommendations and suggestions are forthcoming. Time with Patient: Greater than 30
--- NOTE | 2021-10-14 10:59 | CDI ---
Documentation Clarification Form Date: 10/14/2021 10:45:42 AM From: Che Dobbins CCS, CCDS Admit Date: 10/13/2021 02:46:00 PM Patient Name: Rodríguez Solano Visit Number: [id number] Discharge Date: ATTENTION: The Clinical Documentation Specialists (CDI) and [facility] Coding Staff appreciate your assistance in clarifying documentation. Please respond to the clarification below the line at the bottom and electronically sign. The CDI & [facility] Coding staff will review the response and follow-up if needed. Please note: Queries are made part of the Legal Health Record. If you have any questions, please contact the author of this message via ITS. Dr. Elmo Betancourt: The following is documented in the 10/14 Cardiology Consult: Evidence of myocardial injury documented by abnormal troponin. In the ED, patient was in atrial fibrillation w/RVR, subsequently converted to normal sinus mechanism after starting IV Cardizem, currently in sinus rhythm, was sinus bradycardia, also on IV Heparin. Additional clarification regarding the type of NJ is requested. History/Risk Factors per the 10/13 H/P: COPD, Pneumonia, Hypertension, Obstructive Sleep Apnea, Obesity (BMI 30.8), DJD status post neck surgery, Skin Cancer, Former Smoker (x30 yrs, stopped in 1979). Clinical Indicators: Presented to the ED on 10/13 with SOB Low O2. Cough & Dyspnea x2 weeks, PO mid 70s. History of COPD. Home meds: INH Symbicort, [place], Toprol, MsContin, Mirapex, Zoloft, INH Spiriva, Zestril, INH Ventolin. Admit with Acute Exacerbation of COPD, Pneumonia, Elevated Troponin, Atrial Fibrillation with RVR. 10/13 VS: T 97.8, P 115, R 20 (SOB, labored, accessory use, nasal flaring, prefers sitting, talks in phrases, tachypnea), BP 139/74 - 88/58; PO 75 RA - 100% BiPAP. 10/13 LAB: WBC 25.6, Neut 10.70, PT 14.1, INR 1.4, D Dimer 7.48, BUN 38, Creatinine 1.53, Glucose 102, Mag 2.4 Troponin 1.740, 1.240 10/13 CXR: Correlate for pneumonia, edema. 10/13 CT Chest: COPD with moderate Emphysema, Pulmonary Arterial Hypertension, Right Pleural Effusion, Small-Mod Pericardial Effusion. EKG Results 10/13: R 138 A fib with RVR, Nonspecific ST & T wave abnormality. Treatment 10/13: Telemetry, IV Heparin drip, IV Cardizem, ECHO ordered in ED, BiPAP, IV Na Cl 500 mls @ 999 mls/hr q31M, IV Na Cl 1,000 mls @ 130 mls/hr q7H, po Aspirin. Please clarify the type of NJ, if known: [ ] NSTEMI (type 1) [ ] Type II NJ due to (please specify etiology) [ ] Other, please specify: [ ] Unable to determine (Template Last Revised: November 2020) 2/ Query response documented in the 10/17 Cardiology Progress Note, Dr. Duran: Type II NSTEMI resulting from demand ischemia from RVR. (CDS: KRYS) MTDD
[2021-10-14] MEDS: AZITHROMYCIN 500 MG TAB PO SCH (11:34)
--- NOTE | 2021-10-14 11:58 | ECHOF ---
Referral Reason:geri MEASUREMENTS -------- HEIGHT: 182.9 cm WEIGHT: 108.9 kg BP: IVSd: 0.8 cm (0.6 - 1.1) LVIDd: 5.5 cm (3.9 - 5.3) LVPWd: 1.3 cm (0.6 - 1.1) EDV(Teich): 145 ml IVSs: 1.4 cm LVIDs: 4.0 cm LVPWs: 1.7 cm %IVS Thck: 67 % ESV(Teich): 70 ml EF(Teich): 51 % %FS: 26 % SV(Teich): 74 ml LA Diam: 3.7 cm (2.7 - 3.8) RVIDd: 4.0 cm (< 3.3) LALs A4C: 5.8 cm LAAs A4C: 18.8 cm LAESV A-L A4C: 52 ml LAESV MOD A4C: 49 ml Ao Diam: 3.6 cm (2.0 - 3.7) AV Cusp: 1.6 cm (1.5 - 2.6) EPSS: 0.3 cm MV E Giuliano: 0.54 m/s MV DecT: 367 ms MV Dec [place]: 1.5 m/s MV A Giuliano: 0.94 m/s MV E/A Ratio: 0.57 MV PHT: 106 ms TR Vmax: 2.00 m/s TR maxP.00 mmHg RAP: 5.00 mmHg RVSP: 21.00 mmHg MV EF SLOPE: 42.32 mm/s (70 - 150) MV EXCURSION: 19.52 mm (> 18.000) FINDINGS -------- Sinus rhythm. This was a technically good study. The left ventricular size is normal. There is mild concentric left ventricular hypertrophy. Overa ll left ventricular systolic function is low-normal with, an EF between 50 - 55 %. The right ventricle is moderately enlarged. The left atrium is mildly dilated. The right atrial size is normal. There is mild aortic valve sclerosis. There is no evidence of aortic regurgitation. Mild mitral annular calcification present. Mild mitral regurgitation is present. Mild tricuspid regurgitation present. Right ventricular systolic pressure is normal at < 35 mmHg. There is no pulmonic regurgitation present. The aortic root size is normal. There is a small, generalized pericardial effusion present. CONCLUSIONS -------- 1. The left ventricular size is normal. 2. There is mild concentric left ventricular hypertrophy. 3. Overall left ventricular systolic function is low-normal with, an EF between 50 - 55 %. 4. The right ventricle is moderately enlarged. 5. The left atrium is mildly dilated. 6. The right atrial size is normal. 7. There is mild aortic valve sclerosis. 8. Mild mitral annular calcification present. 9. Mild mitral regurgitation is present. 10. Mild tricuspid regurgitation present. 11. The aortic root size is normal. 12. There is a small, generalized pericardial effusion present. STAMP PRESSER: Jolynn Poole RDCS
[2021-10-14] MEDS: HEPARIN SOD,PORK IN 0.45% NACL 25,000 UNIT in 0.45% NACL 1 250ML.BAG IV SCH (14:54)
[2021-10-14] MEDS ORDERED: CEFEPIME 2 GM in SODIUM CHLORIDE 0.9% 100 ML IVPB SCH ×3 (15:00)
[2021-10-14] MEDS: METOPROLOL SUCCINATE (ER) 25 MG TAB.ER.24H PO SCH (18:21)
--- NOTE | 2021-10-14 19:26 | P.PN ---
Subjective This is a 71-year-old patient of Dr. Bird. Patient initially presented to [facility]. She presented therefore not feeling well for 2 days. Known to have frequent UTIs. Patient has known hard of hearing bilateral. History was given by a caregiver called La Nena. Patient does seem to take excessive alcohol. Patient himself is somewhat lethargic not able to give much of a history. Just about open his eyes. At that the hospital patient check stat x-ray showed questionable atypical infiltrate. Computed tomography scan showed a small density at the anterior horn of the left lateral ventricle. Patient is negative for Coumadin influenza. UA did show some blood and leukoesterase 2+. LFTs are normal. Alcohol was less than 10. EKG showed normal sinus rhythm. His blood gases doneto show pH of 6.9 and a bicarb of 13. On arrival here patient's bicarbonate was less than 5 and serum osmolality was 329. Urine drug screen was negative. Nephrology was consulted. Dr. Perez place a dialysis catheter. Patient moved to the ICU. October 12: ICU. Getting IV fluids. Bicarbonate drip. Was dialyzed earlier. Once. On BiPAP. Lethargic. Just about arousable. 10/14/2021 This is a pleasant 76 years old male who presents with respiratory distress and imaging including CAT scan and CTA of the chest showing extensive pneumonia mainly on the right lung and to lesser degree on the left lung with some emphysematous changes. And now is being covered with broad-spectrum antibiotics for gram-negative bacteria and atypical bacteria including Zithromax and ceftriaxone. He needs BiPAP overnight and currently on 15 L oxygen via nasal cannula. Also patient has some wheezing on examination, pulmonary team following the patient closely. Cardiology on the case for new-onset A. fib and RVR and he is on heparin and Cardizem drip. Elevated troponin but patient with no chest pain or EKG changes. Review of systems CONSTITUTIONAL: No fever, no malaise, no fatigue. HEENT: No recent visual problems or hearing problems. Denied any sore throat. CARDIOVASCULAR: No orthopnea, PND, no palpitations, no syncope. PULMONARY: No chest wall tenderness, no hemoptysis. GASTROINTESTINAL: No diarrhea, no nausea, no vomiting, no abdominal pain. Normoactive bowel sounds. NEUROLOGICAL: No headaches, no weakness, no numbness. Active Medications Generic Name Dose Route Start Last Admin Trade Name Freq PRN Reason Stop Dose Admin Acetaminophen 650 mg 10/13/21 23:40 Acetaminophen Tab 325 Mg Tab PO Q6HR PRN Mild Pain or Fever > 100.5 Hydrocodone Bitart/Acetaminophen 1 each 10/13/21 14:52 Hydrocodone/Apap 10-325mg 1 Each Tab PO Q8HR PRN Pain Hydrocodone Bitart/Acetaminophen 1 each 10/13/21 23:45 10/14/21 18:21 Hydrocodone/Apap 10-325mg 1 Each Tab PO 1 each Q6H [facility] Administration Albuterol/Ipratropium 3 ml 10/13/21 14:46 Ipratropium-Albuterol 3 Ml Neb INHALATION RT-Q4H PRN Shortness Of Breath Or Wheezing Albuterol/Ipratropium 3 ml 10/13/21 16:00 10/14/21 15:31 Ipratropium-Albuterol 3 Ml Neb INHALATION 3 ml RT-QID [facility] Administration Alprazolam 0.25 mg 10/13/21 23:40 Alprazolam 0.25 Mg Tab PO Q6HR PRN Anxiety Atorvastatin Calcium 80 mg 10/14/21 21:00 Atorvastatin 80 Mg Tab PO HS [facility] Azithromycin 500 mg 10/14/21 09:00 10/14/21 11:34 Azithromycin 500 Mg Tab PO 500 mg DAILY [facility] Administration Budesonide/Formoterol Fumarate 2 puff 10/14/21 20:00 Symbicort 160-4.5 Mcg Inhaler INHALATION RT-BID [facility] Calcium Carbonate/Glycine 1,000 mg 10/13/21 23:40 10/14/21 18:02 Calcium Carbonate 500 Mg Chewable PO 1,000 mg Q4HR PRN Administration Dyspepsia Heparin Sodium (Porcine) 0 unit 10/13/21 14:16 10/14/21 07:18 Heparin Sodium 1,000 Un/Ml (10ml Vl) IV 2,700 unit PER PROTOCOL PRN Administration Low PTT Protocol Sodium Chloride 1,000 mls @ 130 mls/hr 10/13/21 13:15 10/14/21 18:15 Saline 0.9% IV Not Given .Q7H42M [facility] Heparin Sodium/Sodium Chloride 250 mls @ 10 mls/hr 10/13/21 14:30 10/14/21 14:54 25,000 unit/ Sodium Chloride IV 11.02 units/kg/hr .Q24H [facility] 12 mls/hr Administration Protocol 9.186 UNITS/KG/HR Ceftriaxone Sodium 1 gm/ 50 mls @ 100 mls/hr 10/14/21 09:00 10/14/21 11:00 Sodium Chloride IVPB 100 mls/hr Q24HR COUNTS INCLUDE 234 BEDS AT THE [facility] Administration Lactulose 20 gm 10/13/21 23:40 Lactulose 20 Gm/30 Ml Cup PO DAILY PRN Constipation Melatonin 3 mg 10/13/21 23:40 Melatonin 3 Mg Tablet PO HS PRN Insomnia Metoprolol Succinate 25 mg 10/14/21 16:00 10/14/21 18:21 Metoprolol Succinate (Er) 25 Mg Tab.Er.24h PO 25 mg DAILY@1600 COUNTS INCLUDE 234 BEDS AT THE [facility] Administration Morphine Sulfate 15 mg 10/14/21 06:00 10/14/21 18:20 Morphine Sulfate Er 15 Mg Tablet PO Not Given BID@0600,1600 COUNTS INCLUDE 234 BEDS AT THE [facility] Protocol Naloxone HCl 0.2 mg 10/13/21 23:40 Naloxone 0.4 Mg/Ml 1 Ml Vial IV Q2M PRN Opioid Reversal Ondansetron HCl 4 mg 10/13/21 23:40 Ondansetron 4 Mg/2 Ml Vial IVP Q8HR PRN Nausea And Vomiting Pramipexole Dihydrochloride 1 mg 10/14/21 06:00 10/14/21 15:31 Pramipexole 1 Mg Tab PO 1 mg BID@0600,1600 COUNTS INCLUDE 234 BEDS AT THE [facility] Administration Sertraline HCl 100 mg 10/14/21 16:00 Sertraline 100 Mg Tab PO DAILY@1600 COUNTS INCLUDE 234 BEDS AT THE [facility] Objective - Vital Signs Vital signs: Vital Signs Temp 97.4 F L 10/13/21 19:30 Pulse 62 10/14/21 07:30 Resp 16 10/14/21 07:00 BP 118/66 10/14/21 07:00 Pulse Ox 92 L 10/14/21 07:00 Intake & Output 10/13/21 10/14/21 10/14/21 18:59 06:59 18:59 Intake Total 161 Balance 161 Weight 108.862 kg 108.862 kg Intake: Intake, IV Titration 161 Amount Heparin Sod,Pork in 0.45% 161 NaCl 25,000 unit In 0.45 % NaCl 1 250ml.bag @ 9. 186 UNITS/KG/HR 10 mls/hr IV .Q24H COUNTS INCLUDE 234 BEDS AT THE [facility] Rx#: [id number] - Labs CBC & Chem 7: 10/14/21 06:32 10/13/21 12:53 Labs: Abnormal Lab Results - Last 24 Hours (Table) 10/13/21 10/13/21 10/13/21 Range/Units 12:12 12:12 12:12 WBC 25.6 H (3.8-10.6) k/uL RBC (4.30-5.90) m/uL MCV 100.9 H (80.0-100.0) fL MCHC (31.0-37.0) g/dL Neutrophils # (1.3-7.7) k/uL Neutrophils # (Manual) 10.70 H (1.3-7.7) k/uL Monocytes # (Manual) 1.54 H (0-1.0) k/uL Eosinophils # (Manual) 10.50 H (0-0.7) k/uL Nucleated RBCs 3 H (0-0) /100 WBC PT 14.1 H (9.0-12.0) sec INR 1.4 H (<1.2) APTT (22.0-30.0) sec D-Dimer 7.48 H (<0.60) mg/L FEU BUN (9-20) mg/dL Creatinine (0.66-1.25) mg/dL Glucose (74-99) mg/dL Plasma Lactic Acid Yobani 3.8 H* (0.7-2.0) mmol/L Magnesium (1.6-2.3) mg/dL Troponin I (0.000-0.034) ng/mL Albumin (3.5-5.0) g/dL 10/13/21 10/13/21 10/13/21 Range/Units 12:53 12:53 15:23 WBC (3.8-10.6) k/uL RBC (4.30-5.90) m/uL MCV (80.0-100.0) fL MCHC (31.0-37.0) g/dL Neutrophils # (1.3-7.7) k/uL Neutrophils # (Manual) (1.3-7.7) k/uL Monocytes # (Manual) (0-1.0) k/uL Eosinophils # (Manual) (0-0.7) k/uL Nucleated RBCs (0-0) /100 WBC PT (9.0-12.0) sec INR (<1.2) APTT (22.0-30.0) sec D-Dimer (<0.60) mg/L FEU BUN 38 H (9-20) mg/dL Creatinine 1.53 H (0.66-1.25) mg/dL Glucose 102 H (74-99) mg/dL Plasma Lactic Acid Yobani (0.7-2.0) mmol/L Magnesium 2.4 H (1.6-2.3) mg/dL Troponin I 2.060 H* 1.740 H* (0.000-0.034) ng/mL Albumin 3.0 L (3.5-5.0) g/dL 10/13/21 10/13/21 10/14/21 Range/Units 18:25 20:30 06:32 WBC 22.0 H (3.8-10.6) k/uL RBC 4.10 L (4.30-5.90) m/uL MCV 102.7 H (80.0-100.0) fL MCHC 30.9 L (31.0-37.0) g/dL Neutrophils # 17.7 H (1.3-7.7) k/uL Neutrophils # (Manual) (1.3-7.7) k/uL Monocytes # (Manual) (0-1.0) k/uL Eosinophils # (Manual) (0-0.7) k/uL Nucleated RBCs (0-0) /100 WBC PT (9.0-12.0) sec INR (<1.2) APTT 44.1 H (22.0-30.0) sec D-Dimer (<0.60) mg/L FEU BUN (9-20) mg/dL Creatinine (0.66-1.25) mg/dL Glucose (74-99) mg/dL Plasma Lactic Acid Yobani (0.7-2.0) mmol/L Magnesium (1.6-2.3) mg/dL Troponin I 1.240 H* (0.000-0.034) ng/mL Albumin (3.5-5.0) g/dL 10/14/21 Range/Units 06:32 WBC (3.8-10.6) k/uL RBC (4.30-5.90) m/uL MCV (80.0-100.0) fL MCHC (31.0-37.0) g/dL Neutrophils # (1.3-7.7) k/uL Neutrophils # (Manual) (1.3-7.7) k/uL Monocytes # (Manual) (0-1.0) k/uL Eosinophils # (Manual) (0-0.7) k/uL Nucleated RBCs (0-0) /100 WBC PT 13.0 H (9.0-12.0) sec INR 1.2 H (<1.2) APTT 38.3 H (22.0-30.0) sec D-Dimer (<0.60) mg/L FEU BUN (9-20) mg/dL Creatinine (0.66-1.25) mg/dL Glucose (74-99) mg/dL Plasma Lactic Acid Yobani (0.7-2.0) mmol/L Magnesium (1.6-2.3) mg/dL Troponin I (0.000-0.034) ng/mL Albumin (3.5-5.0) g/dL Microbiology - Last 24 Hours (Table) 10/13/21 16:53 Gram Stain - Preliminary Sputum Sputum Culture - Preliminary Assessment and Plan Assessment: - Bilateral community acquired pneumonia, more on the right side. Continue with ceftriaxone and Zithromax. Pulmonary team on the case, follow-up sputum and blood cultures -New-onset atrial fibrillation with RVR Continue with Cardizem drip, heparin drip, cardiology team on the case -Acute severe metabolic encephalopathy from renal failure severe metabolic acidosis: Slow to respond -Severe metabolic acidosis. Some component from acute kidney injury.: Better Bicarbonate drip discontinued -Severe sepsis from pneumonia IV fluids. Aggressive hydration -Acute COPD exacerbation and a prior smoker Discontinue systemic steroids per pulmonary team. Symbicort per pulmonary team -Acute severe hypoxic respiratory failure from pneumonia Currently on BiPAP and 15 L high flow nasal cannula -Essential hypertension Continue with same antihypertensive medication -Restless leg syndrome Mirapex 1 mg twice a day -Depression Zoloft 100 mg daily Primary osteoarthritis multiple joints bilaterally [place] 10 every 6hr DVT prophylaxis: Heparin GI prophylaxis: Pepcid
[2021-10-14] MEDS: SYMBICORT 160-4.5 MCG INHALER INHALATION SCH (19:35)
[2021-10-14] MEDS: FAMOTIDINE 20 MG/2 ML VIAL IV SCH (20:52)
[2021-10-14] MEDS: ATORVASTATIN 80 MG TAB PO SCH (20:52)
[2021-10-14] MEDS: SERTRALINE 100 MG TAB PO SCH (20:52)
[2021-10-15] MEDS: SODIUM CHLORIDE 0.9% 1,000 ML IV SCH ×2 (06:18→16:57)
[2021-10-15] MEDS: PRAMIPEXOLE 1 MG TAB PO SCH ×2 (06:42→19:00)
--- NOTE | 2021-10-15 08:07 | P.PN ---
Subjective Progress Note Date: 10/15/21 Atrial fibrillation with RVR Type II end STEMI resulting from demand ischemia from RVR Hospital course: This is a 76-year-old gentleman with a past medical history significant for hypertension and dyslipidemia and sleep apnea and also chronic obstructive pulmonary disease, presented to the emergency department complaining of shortness of breath. We consulted to see the patient for further evaluation of abnormal cardiac enzymes and elevated troponin. The patient states that for the last few days he has not been feeding well. He has been experiencing increasing in the temperature associated with cough productive of sputum. Beside that he was experiencing increasing in the shortness of breath but no symptoms of chest pain or chest discomfort and no dizziness or lightheadedness or any feeling of heart racing or fluttering or presyncope or syncope. In the ER the patient was found to be hypoxic with oxygen saturation of 75% and subsequently he was placed on BiPAP with improvement in his oxygenation. Also he presented to the emergency department he was in atrial fibrillation with RVR and subsequently converted to normal sinus mechanism after he was started on Cardizem IV. Cur rently he is in sinus rhythm was sinus bradycardia. He still on Cardizem IV. He is also on heparin IV. The patient underwent a workup including EKG as described earlier showing A. fib with diffuse nonspecific ST and T wave abnormalities. No EKG after the patient was converted to normal sinus mec viki. Also the troponin came in to be elevated. The chest x-ray showed findings consistent with a pneumonia. He underwent a computed tomography scan of the chest which showed multiple findings including no pulmonary embolism, bilateral hilar adenopathy, bilateral infiltrate, and also small to moderate pericardial effusion, heart failure. The patient has no history of coronary artery disease or congestive heart failure or any cardiac arrhythmia and never seen any informatics educator in the past. When he was seen and examined he was in bilateral expiratory wheezing with regular heart sounds and states bilateral lower extremities edema 10/15/21 Patient was seen and fully evaluated at the bedside this morning. Patient resting comfortably on BiPAP with FiO2 of 60% oxygen saturation 94%. He reports feeling better this morning. He denies having any chest pain, palpitations, shortness of breath, dizziness/lightheadedness, or any other complaints. Patient remains in normal sinus rhythm at time of assessment. He remains on IV heparin and we will plan to transition to oral anticoagulant once patient has been weaned off of BiPAP. Echocardiogram revealed an EF between 50 and 55% with mild mitral and tricuspid regurgitation, mild aortic valve sclerosis, and moderately enlarged right ventricle with left ventricular hypertrophy. Physical exam: Vital signs reviewed and stable. General: Nontoxic, no distress and appears stated age. Derm: Skin warm and dry, normal coloration for ethnicity. Head: Atraumatic, normocephalic and symmetric. Eyes: EOMs intact, no lid lag, and anicteric sclera Mouth: no lip lesions, mucus membranes moist Cardiovascular: regular rate and rhythm with normal S1S2, no murmur, positive posterior tibial pulses bilaterally, and cap refill < 2 seconds. Lungs: Respirations even, regular, and unlabored on BiPAP. Lungs diminished with diffuse bilateral expiratory wheezing Abdominal: soft, nontender to palpation, no guarding, no appreciable organomegaly Ext: ROM intact. No gross muscle atrophy, no edema, no contractures Neuro: Speech clear, face symmetrical and CN II-XII grossly intact with no noted focal neuro deficits Psych: Alert and oriented to person, place, time, and situation. Appropriate and pleasant affect. Assessment and Plan of Care: Assessment: Bilateral pneumonia Chronic obstructive pulmonary disease in acute exacerbation Hypoxemia secondary to the above Type II NSTEMI resulting from demand ischemia from RVR Atrial fibrillation with rapid ventricular response, new diagnosis Multiple comorbidities including obstructive sleep apnea Plan: -Continue treatment for pneumonia per internal medicine team -We will transition IV heparin to oral anticoagulation with Eliquis once patient is off of BiPAP -Continue aspirin -Consider medical treatment for the abnormal troponin at this point in the absence of chest pain and absence of EKG changes consistent with ischemia. -Echo cardiogram revealed an EF of 50-55% with moderately enlarged right ventricle and mild mitral and tricuspid regurgitation. -The pt does not seem to be in overt congestive heart failure at this point, no need for diuresis. -We will continue to follow-up with the patient Thank you for allowing us to participate in the care of this pleasant patient. Do not hesitate to contact us with questions. Objective - Vital Signs Vital signs: Vital Signs Temp 98.1 F 10/15/21 04:00 Pulse 95 10/15/21 04:00 Resp 16 10/15/21 04:00 BP 136/78 10/15/21 04:00 Pulse Ox 95 10/15/21 04:00 Intake & Output 10/14/21 10/15/21 10/15/21 18:59 06:59 18:59 Intake Total 250 1260 Output Total 650 Balance 250 610 Weight 108.862 kg Intake: Intake, IV Titration 250 780 Amount Heparin Sod,Pork in 0.45% 250 NaCl 25,000 unit In 0.45 % NaCl 1 250ml.bag @ 9. 186 UNITS/KG/HR 10 mls/hr IV .Q24H [facility] Rx#: [id number] Sodium Chloride 0.9% 1, 780 000 ml @ 130 mls/hr IV . Q7H42M [facility] Rx#:[id number] Oral 480 Output: Urine 650 Other: Voiding Method Urinal - Labs CBC & Chem 7: 10/14/21 06:32 10/13/21 12:53 Labs: Abnormal Lab Results - Last 24 Hours (Table) 10/14/21 Range/Units 12:31 APTT 43.6 H (22.0-30.0) sec Microbiology - Last 24 Hours (Table) 10/13/21 14:20 Blood Culture - Preliminary Blood No Growth after 24 hours 10/13/21 14:20 Blood Culture - Preliminary Blood No Growth after 24 hours 10/13/21 16:53 Gram Stain - Preliminary Sputum Sputum Culture - Preliminary
[2021-10-15] MEDS: IPRATROPIUM-ALBUTEROL 3 ML NEB INHALATION SCH ×4 (08:44→20:36)
[2021-10-15] MEDS: HYDROcodone/APAP 10-325MG 1 EACH TAB PO SCH ×4 (08:44→20:46)
[2021-10-15] MEDS: SYMBICORT 160-4.5 MCG INHALER INHALATION SCH ×3 (08:45→20:36)
[2021-10-15] MEDS: FAMOTIDINE 20 MG/2 ML VIAL IV SCH (08:48)
[2021-10-15] MEDS ORDERED: guaiFENesin-DM 100-10MG/5ML 10 ML CUP PO PRN (09:01)
[2021-10-15] MEDS ORDERED: LORazepam 2 MG/ML INJ IV PRN (09:01)
[2021-10-15] MEDS: MORPHINE SULFATE ER 15 MG TABLET PO SCH ×2 (12:09→16:58)
[2021-10-15] MEDS: AZITHROMYCIN 500 MG TAB PO SCH (12:29)
--- NOTE | 2021-10-15 14:10 | P.PN ---
Subjective This is a 71-year-old patient of Dr. Bird. Patient initially presented to [facility]. She presented therefore not feeling well for 2 days. Known to have frequent UTIs. Patient has known hard of hearing bilateral. History was given by a caregiver called La Nena. Patient does seem to take excessive alcohol. Patient himself is somewhat lethargic not able to give much of a history. Just about open his eyes. At that the hospital patient check stat x-ray showed questionable atypical infiltrate. Computed tomography scan showed a small density at the anterior horn of the left lateral ventricle. Patient is negative for Coumadin influenza. UA did show some blood and leukoesterase 2+. LFTs are normal. Alcohol was less than 10. EKG showed normal sinus rhythm. His blood gases doneto show pH of 6.9 and a bicarb of 13. On arrival here patient's bicarbonate was less than 5 and serum osmolality was 329. Urine drug screen was negative. Nephrology was consulted. Dr. Perez place a dialysis catheter. Patient moved to the ICU. October 12: ICU. Getting IV fluids. Bicarbonate drip. Was dialyzed earlier. Once. On BiPAP. Lethargic. Just about arousable. 10/14/2021 This is a pleasant 76 years old male who presents with respiratory distress and imaging including CAT scan and CTA of the chest showing extensive pneumonia mainly on the right lung and to lesser degree on the left lung with some emphysematous changes. And now is being covered with broad-spectrum antibiotics for gram-negative bacteria and atypical bacteria including Zithromax and ceftriaxone. He needs BiPAP overnight and currently on 15 L oxygen via nasal cannula. Also patient has some wheezing on examination, pulmonary team following the patient closely. Cardiology on the case for new-onset A. fib and RVR and he is on heparin and Cardizem drip. Elevated troponin but patient with no chest pain or EKG changes. 10/15/2021 Patient today was still in respiratory distress eating BiPAP in the morning however during the day his oxygen requirement down to 10 L/m via nasal cannula. He denies chest pain however he developed A. fib and this morning his converted to sinus rhythm again and the Cardizem assisted drip which was started earlier was stopped however he still getting his heparin drip. This morning he was anxious so Ativan when necessary as provided and he was complaining of from significant coughing sorted Pertussin is provided. Low labs from today Continued on heparin drip, normal saline, Zithromax and ceftriaxone Objective - Vital Signs Vital signs: Vital Signs Temp 97.8 F 10/15/21 07:45 Pulse 110 H 10/15/21 11:52 Resp 21 10/15/21 08:00 BP 117/55 10/15/21 07:45 Pulse Ox 96 10/15/21 07:50 Intake & Output 10/14/21 10/15/21 10/15/21 18:59 06:59 18:59 Intake Total 250 1260 345 Output Total 650 Balance 250 610 345 Weight 108.862 kg 108.862 kg Intake: Intake, IV Titration 250 780 227 Amount Heparin Sod,Pork in 0.45% 250 227 NaCl 25,000 unit In 0.45 % NaCl 1 250ml.bag @ 9. 186 UNITS/KG/HR 10 mls/hr IV .Q24H [facility] Rx#: [id number] Sodium Chloride 0.9% 1, 780 000 ml @ 130 mls/hr IV . Q7H42M [facility] Rx#:[id number] Oral 480 118 Output: Urine 650 Other: Voiding Method Urinal Urinal - Exam GENERAL: The patient is alert and oriented x3, not in any acute distress. Well developed, well nourished. HEENT: Pupils are round and equally reacting to light. EOMI. No scleral icterus. No conjunctival pallor. Normocephalic, atraumatic. No pharyngeal erythema. No thyromegaly. CARDIOVASCULAR: S1 and S2 present. No murmurs, rubs, or gallops. -PULMONARY: Chest is clear to auscultation, scattered wheezing or crackles. Decreased breath sounds more on the right side. Today he is on BiPAP ABDOMEN: Soft, nontender, nondistended, normoactive bowel sounds. No palpable organomegaly. MUSCULOSKELETAL: No joint swelling or deformity. EXTREMITIES: No cyanosis, clubbing, or pedal edema. NEUROLOGICAL: Gross neurological examination did not reveal any focal deficits. SKIN: No rashes. no petechiae. - Labs CBC & Chem 7: 10/14/21 06:32 10/13/21 12:53 Labs: Abnormal Lab Results - Last 24 Hours (Table) 10/14/21 Range/Units 12:31 APTT 43.6 H (22.0-30.0) sec Microbiology - Last 24 Hours (Table) 10/13/21 16:53 Gram Stain - Final Sputum Sputum Culture - Final 10/13/21 14:20 Blood Culture - Preliminary Blood No Growth after 24 hours 10/13/21 14:20 Blood Culture - Preliminary Blood No Growth after 24 hours Assessment and Plan Assessment: - Bilateral community acquired pneumonia, more on the right side. Continue with ceftriaxone and Zithromax. Pulmonary team on the case, follow-up sputum and blood cultures -New-onset atrial fibrillation with RVR Continue with Cardizem drip, heparin drip, cardiology team on the case -Acute severe metabolic encephalopathy from renal failure severe metabolic acidosis: Slow to respond -Severe metabolic acidosis. Some component from acute kidney injury.: Better Bicarbonate drip discontinued -Severe sepsis from pneumonia IV fluids. Aggressive hydration -Acute COPD exacerbation and a prior smoker Discontinue systemic steroids per pulmonary team. Symbicort per pulmonary team -Acute severe hypoxic respiratory failure from pneumonia Currently on BiPAP and 15 L high flow nasal cannula -Essential hypertension Continue with same antihypertensive medication -Restless leg syndrome Mirapex 1 mg twice a day -Depression Zoloft 100 mg daily Primary osteoarthritis multiple joints bilaterally [place] 10 every 6hr DVT prophylaxis: Heparin GI prophylaxis: Pepcid
--- NOTE | 2021-10-15 15:47 | P.PN ---
Subjective Progress Note Date: 10/15/21 76-year-old male with a history of COPD, who presents to the emergency department on October 13, complaining of shortness of breath. The patient also complains of cough, dizziness, fever, chills, and phlegm production. The patient has been feeling well as mentioned above for at least 2-3 weeks. The patient was evaluated in the emergency department. He was found have atrial fibrillation with rapid ventricular response. In addition, his chest x-ray and CAT scan suggested pneumonia, with significant consolidation and abnormalities noted more so in the right lung that in the left. The patient has been vaccinated fully. We saw him in the emergency department, room 6, he was on BiPAP, with settings of IPAP 12, EPAP 6, and 60%. The patient was on IV heparin via weight based protocol, and a Cardizem drip at 15 mg an hour. The patient was lying flat in bed. He did not appear to have a great deal of respiratory difficulty. White count 22,000, hemoglobin 13, hematocrit 42.1, platelet count 326,000. PT 13, INR 1.2, PTT 38.3. D-dimer was 7.48. Sodium, potassium, chloride, CO2, and anion gap are all normal BUN was 38 creatinine of 1.53. Troponin was elevated at 2.06, 1.74, and 1.24. Testing for mae virus was negative. He was no pulmonary embolism on CT angiogram. In addition, there was mediastinal bilateral hilar lymphadenopathy, measuring up to 5.2 cm. The patient is seen today 10/15/2021 in follow-up on the selective care unit. He is currently resting comfortably in bed. He is alert in no acute distress. Off the BiPAP and currently on 9 L high flow nasal cannula. He has normal saline running at 100 ML's per hour. He is feeling a bit better today compared to yesterday. Still with a loose nonproductive cough. Sputum culture revealed no growth. Blood cultures reveal no growth. Urine legionella antigen negative. He remains on a heparin drip. Continued on Symbicort, DuoNeb inhalations, antibiotics in the form of ceftriaxone and azithromycin. Objective - Vital Signs Vital signs: Vital Signs Temp 97.8 F 10/15/21 07:45 Pulse 110 H 10/15/21 11:52 Resp 21 10/15/21 08:00 BP 117/55 10/15/21 07:45 Pulse Ox 96 10/15/21 07:50 Intake & Output 10/14/21 10/15/21 10/15/21 18:59 06:59 18:59 Intake Total 250 1260 608 Output Total 650 Balance 250 610 608 Weight 108.862 kg 108.862 kg Intake: Intake, IV Titration 250 780 250 Amount Heparin Sod,Pork in 0.45% 250 250 NaCl 25,000 unit In 0.45 % NaCl 1 250ml.bag @ 9. 186 UNITS/KG/HR 10 mls/hr IV .Q24H [facility] Rx#: [id number] Sodium Chloride 0.9% 1, 780 000 ml @ 130 mls/hr IV . Q7H42M [facility] Rx#:[id number] Oral 480 358 Output: Urine 650 Other: Voiding Method Urinal Urinal - Exam GENERAL EXAM: Alert, very pleasant 76-year-old gentleman, on 9 L high flow nasal cannula, fairly comfortable in no apparent distress. HEAD: Normocephalic. EYES: Normal reaction of pupils, equal size. NOSE: Clear with pink turbinates. THROAT: No erythema or exudates. NECK: No masses, no JVD. CHEST: No chest wall deformity. LUNGS: Equal air entry with coarse bilateral rhonchi CVS: S1 and S2 normal with no audible murmur, regular rhythm. ABDOMEN: No hepatosplenomegaly, normal bowel sounds, no guarding or rigidity. SPINE: No scoliosis or deformity SKIN: No rashes CENTRAL NERVOUS SYSTEM: No focal deficits, tone is normal in all 4 extremities. EXTREMITIES: There is no peripheral edema. No clubbing, no cyanosis. Peripheral pulses are intact. - Labs CBC & Chem 7: 10/14/21 06:32 10/13/21 12:53 Labs: Abnormal Lab Results - Last 24 Hours (Table) 10/15/21 Range/Units 13:13 APTT >200.0 H* (22.0-30.0) sec Microbiology - Last 24 Hours (Table) 10/13/21 16:53 Gram Stain - Final Sputum Sputum Culture - Final 10/13/21 14:20 Blood Culture - Preliminary Blood No Growth after 24 hours 10/13/21 14:20 Blood Culture - Preliminary Blood No Growth after 24 hours Assessment and Plan Assessment: 1 Hypoxemic respiratory failure, multifactorial, in part related to bilateral pneumonia, right greater than left, as well as atrial fibrillation with RVR. 2 Elevated troponins, which may reflect non-ST segment elevation myocardial infarctions, versus supply/demand mismatch. Currently on a heparin drip 3 Mild/moderate acute kidney injury. 4 History of COPD. 5 History of hypertension. 6 History of obstructive sleep apnea syndrome. 7 History of skin cancer. 8 Prior history of pneumonia. 9 Prior history of tobacco use. Plan: The patient was seen and evaluated On 9 L high flow nasal cannula Continued on ceftriaxone and azithromycin Continued on Symbicort and DuoNeb inhalations Continued on a heparin drip per cardiology Titrate the FiO2 as tolerated Follow-up chest x-ray in the a.m. We'll continue to follow I, the cosigning physician, performed a history & physical examination of the p atient. Lungs sounds bilateral scattered rhonchi. Maintaining O2 saturations in the 90s on 9 L high flow nasal cannula. I discussed the assessment and plan of care with my nurse practitioner, Margy Reyes. I attest to the above note as dictated by her.
[2021-10-15] MEDS: HEPARIN SOD,PORK IN 0.45% NACL 25,000 UNIT in 0.45% NACL 1 250ML.BAG IV SCH (16:55)
[2021-10-15] MEDS: SERTRALINE 100 MG TAB PO SCH (16:57)
[2021-10-15] MEDS: METOPROLOL SUCCINATE (ER) 25 MG TAB.ER.24H PO SCH (16:57)
[2021-10-15] MEDS: ATORVASTATIN 80 MG TAB PO SCH (20:45)
[2021-10-15] MEDS: HEPARIN SODIUM 1,000 UN/ML (10ML VL) IV PRN (21:05)
[2021-10-16 03:56] LABS: Basophils # (A) 0.1 k/uL (0-0.2); Basophils % (A) 0 %; Eosinophils # (A) 8.2 k/uL (0-0.7); Eosinophils % (A) 33 %; HCT 37.7 % (39.0-53.0); HGB 11.9 gm/dL (13.0-17.5); Hypochromasia Slight; Lymphocytes # (A) 2.7 k/uL (1.0-4.8); Lymphocytes % (A) 11 %; MCH 32.6 pg (25.0-35.0); MCHC 31.6 g/dL (31.0-37.0); MCV 103.1 fL (80.0-100.0); Macrocytosis Slight; Monocytes # (A) 0.8 k/uL (0-1.0); Monocytes % (A) 3 %; Neutrophils # (A) 12.6 k/uL (1.3-7.7); Neutrophils % (A) 51 %; Platelet Count 277 k/uL (150-450); RBC 3.66 m/uL (4.30-5.90); RDW 14.6 % (11.5-15.5); WBC 24.6 k/uL (3.8-10.6)
[2021-10-16 04:27] LABS: African American GFR (CKD) >90 (>60 ml/min/1.73 sqM); Anion Gap 3 mmol/L; Blood Urea Nitrogen 26 mg/dL (9-20); Calcium 7.9 mg/dL (8.4-10.2); Carbon Dioxide 25 mmol/L (22-30); Chloride 113 mmol/L (98-107); Glucose 90 mg/dL (74-99); Non-African American GFR(CKD) >90 (>60 ml/min/1.73 sqM); Potassium 4.2 mmol/L (3.5-5.1); Sodium 141 mmol/L (137-145)
[2021-10-16] MEDS: HEPARIN SOD,PORK IN 0.45% NACL 25,000 UNIT in 0.45% NACL 1 250ML.BAG IV SCH (05:34)
[2021-10-16] MEDS: MORPHINE SULFATE ER 15 MG TABLET PO SCH ×2 (06:42→18:19)
[2021-10-16] MEDS: HYDROcodone/APAP 10-325MG 1 EACH TAB PO SCH ×4 (06:42→22:43)
[2021-10-16] MEDS: PRAMIPEXOLE 1 MG TAB PO SCH ×2 (06:43→18:20)
[2021-10-16] MEDS: SODIUM CHLORIDE 0.9% 1,000 ML IV SCH ×3 (06:45→11:00)
--- NOTE | 2021-10-16 07:03 | XR ---
EXAMINATION TYPE: XR chest 1V portable DATE OF EXAM: 10/16/2021 COMPARISON: 10/06/2021 HISTORY: Shortness of breath TECHNIQUE: Single frontal view of the chest is obtained. FINDINGS: There are diffuse fluffy airspace consolidations and interstitial opacity bilaterally, rig ht much greater than left. There is been no interval change since the prior study. There is no large pleural effusion. There is no pneumothorax. There is marked degenerative change of the left glenohumeral joint. IMPRESSION: No interval change in the diffuse acute cardiopulmonary process significantly worse on t he right compared to the left.
[2021-10-16] MEDS: SYMBICORT 160-4.5 MCG INHALER INHALATION SCH (07:21)
[2021-10-16] MEDS: IPRATROPIUM-ALBUTEROL 3 ML NEB INHALATION SCH ×4 (07:22→19:55)
--- NOTE | 2021-10-16 07:59 | P.PN ---
Subjective Progress Note Date: 10/16/21 Atrial fibrillation with RVR Type II end STEMI resulting from demand ischemia from RVR Hospital course: This is a 76-year-old gentleman with a past medical history significant for hypertension and dyslipidemia and sleep apnea and also chronic obstructive pulmonary disease, presented to the emergency department complaining of shortness of breath. We consulted to see the patient for further evaluation of abnormal cardiac enzymes and elevated troponin. The patient states that for the last few days he has not been feeding well. He has been experiencing increasing in the temperature associated with cough productive of sputum. Beside that he was experiencing increasing in the shortness of breath but no symptoms of chest pain or chest discomfort and no dizziness or lightheadedness or any feeling of heart racing or fluttering or presyncope or syncope. In the ER the patient was found to be hypoxic with oxygen saturation of 75% and subsequently he was placed on BiPAP with improvement in his oxygenation. Also he presented to the emergency department he was in atrial fibrillation with RVR and subsequently converted to normal sinus mechanism after he was started on Cardizem and heparin IV. EKG revealing A. fib RVR at [address] and T-wave abnormalities. Troponin elevated at 2.060, 1.740, and 1.240. The chest x-ray showed findings consistent with a pneumonia. He underwent a computed tomography scan of the chest which showed multiple findings including no pulmonary embolism, bilateral hilar adenopathy, bilateral infiltrate, and also small to moderate pericardial effusion, heart failure. The patient has no history of coronary artery disease or congestive heart failure or any cardiac arrhythmia and never seen any hand quilter in the past. Echocardiogram revealed an EF between 50 and 55% with mild mitral and tricuspid regurgitation, mild aortic valve sclerosis, and moderately enlarged right ventricle with left ventricular hypertrophy. 10/16/21 Patient seen and fully evaluated at the bedside this morning. He has been weaned off BiPAP and was on 10 L O2 via high flow nasal cannula to allow patient to eat breakfast. SpO2 89%. Patient denies any chest pain, palpitations, shortness of breath, or experiencing any dizziness/lightheadedness at this time. Patient had slight conversational dyspnea noted and lungs with diffuse coarse crackles bilaterally. Vital signs reviewed patient continues to have rapid ventricular rate ranging from 90s to 120s and is hypertensive with blood pressure 190/96. Metoprolol increased to 50 mg daily and additional medications including lisinopril 5 mg daily, aspirin 81 mg daily and Lasix 20 mg IVP every 12 hours were also added this morning. Heparin discontinued and patient started on oral anticoagulation with Eliquis 5 mg twice daily. Physical exam: Vital signs reviewed and stable. General: Nontoxic, no distress and appears stated age. Derm: Skin warm and dry, normal coloration for ethnicity. Head: Atraumatic, normocephalic and symmetric. Eyes: EOMs intact, no lid lag, and anicteric sclera Mouth: no lip lesions, mucus membranes moist Cardiovascular: regular rate and rhythm with normal S1S2, no murmur, positive posterior tibial pulses bilaterally, and cap refill < 2 seconds. Lungs: Respirations even, regular, and unlabored on BiPAP. Lungs diminished with diffuse bilateral expiratory wheezing and diffuse coarse crackles bilaterally Abdominal: soft, nontender to palpation, no guarding, no appreciable organomegaly Ext: ROM intact. No gross muscle atrophy, no edema, no contractures Neuro: Speech clear, face symmetrical and CN II-XII grossly intact with no noted focal neuro deficits Psych: Alert and oriented to person, place, time, and situation. Appropriate and pleasant affect. Assessment and Plan of Care: Assessment: Bilateral pneumonia Chronic obstructive pulmonary disease in acute exacerbation Hypoxemia secondary to the above Type II NSTEMI resulting from demand ischemia from RVR Atrial fibrillation with rapid ventricular response, new diagnosis Multiple comorbidities including obstructive sleep apnea Plan: -Continue treatment for pneumonia per internal medicine/pulmonary team -Metoprolol increased to 50 mg daily and additional medications including lisinopril 5 mg daily, aspirin 81 mg daily and Lasix 20 mg IVP every 12 hours were also added this morning. -Heparin discontinued and patient started on oral anticoagulation with Eliquis 5 mg twice daily. -Continue maximizing medical treatment for the abnormal troponins at this point in the absence of chest pain and absence of EKG changes consistent with ischemia. -Echocardiogram revealed an EF of 50-55% with moderately enlarged right ventricle and mild mitral and tricuspid regurgitation. -We will continue to follow-up with the patient and further recommendations to be provided based on clinical course. Thank you for allowing us to participate in the care of this pleasant patient. Do not hesitate to contact us with questions. Nurse practitioner note has been reviewed by physician. Signing provider agrees with the documented findings, assessment, and plan of care. Objective - Vital Signs Vital signs: Vital Signs Temp 98.4 F 10/15/21 20:00 Pulse 75 10/16/21 04:00 Resp 22 10/16/21 04:00 BP 167/87 10/16/21 04:00 Pulse Ox 98 10/16/21 04:00 Intake & Output 10/15/21 10/16/21 10/16/21 18:59 06:59 18:59 Intake Total 848 1147.641 Output Total 600 Balance 248 1147.641 Weight 108.862 kg 108 kg Intake: Intake, IV Titration 250 177.641 Amount Heparin Sod,Pork in 0.45% 250 177.641 NaCl 25,000 unit In 0.45 % NaCl 1 250ml.bag @ 9. 186 UNITS/KG/HR 10 mls/hr IV .Q24H [facility] Rx#: [id number] Oral 598 970 Output: Urine 600 Other: Voiding Method Urinal Urinal # Voids 1 1 - Labs CBC & Chem 7: 10/16/21 02:56 10/16/21 02:56 Labs: Abnormal Lab Results - Last 24 Hours (Table) 10/15/21 10/15/21 10/16/21 Range/Units 13:13 20:23 02:56 WBC 24.6 H (3.8-10.6) k/uL RBC 3.66 L (4.30-5.90) m/uL Hgb 11.9 L (13.0-17.5) gm/dL Hct 37.7 L (39.0-53.0) % MCV 103.1 H (80.0-100.0) fL Neutrophils # 12.6 H (1.3-7.7) k/uL Eosinophils # 8.2 H (0-0.7) k/uL APTT >200.0 H* 34.8 H (22.0-30.0) sec Chloride (98-107) mmol/L BUN (9-20) mg/dL Calcium (8.4-10.2) mg/dL 10/16/21 10/16/21 Range/Units 02:56 02:56 WBC (3.8-10.6) k/uL RBC (4.30-5.90) m/uL Hgb (13.0-17.5) gm/dL Hct (39.0-53.0) % MCV (80.0-100.0) fL Neutrophils # (1.3-7.7) k/uL Eosinophils # (0-0.7) k/uL APTT 68.3 H (22.0-30.0) sec Chloride 113 H (98-107) mmol/L BUN 26 H (9-20) mg/dL Calcium 7.9 L (8.4-10.2) mg/dL Microbiology - Last 24 Hours (Table) 10/13/21 14:20 Blood Culture - Preliminary Blood No Growth after 48 hours 10/13/21 14:20 Blood Culture - Preliminary Blood No Growth after 48 hours 10/13/21 16:53 Gram Stain - Final Sputum Sputum Culture - Final
[2021-10-16] MEDS: FAMOTIDINE 20 MG TAB PO SCH (09:11)
[2021-10-16] MEDS: APIXABAN 5 MG TAB PO SCH ×2 (09:11→20:24)
[2021-10-16] MEDS: lisinopriL 5 MG TAB PO SCH (09:11)
[2021-10-16] MEDS: AZITHROMYCIN 500 MG TAB PO SCH (09:11)
[2021-10-16] MEDS: FUROSEMIDE 10 MG/ML 2 ML VIAL IV SCH ×2 (09:11→20:24)
[2021-10-16] MEDS: ASPIRIN 81 MG PO SCH (09:11)
[2021-10-16] MEDS ORDERED: METOPROLOL SUCCINATE (ER) 50 MG TAB.ER.24H PO SCH (09:30)
--- NOTE | 2021-10-16 11:35 | P.PN ---
Subjective This is a 71-year-old patient of Dr. Bird. Patient initially presented to [facility]. She presented therefore not feeling well for 2 days. Known to have frequent UTIs. Patient has known hard of hearing bilateral. History was given by a caregiver called [place] [facility]. Patient does seem to take excessive alcohol. Patient himself is somewhat lethargic not able to give much of a history. Just about open his eyes. At that the hospital patient check stat x-ray showed questionable atypical infiltrate. Computed tomography scan showed a small density at the anterior horn of the left lateral ventricle. Patient is negative for Coumadin influenza. UA did show some blood and leukoesterase 2+. LFTs are normal. Alcohol was less than 10. EKG showed normal sinus rhythm. His blood gases doneto show pH of 6.9 and a bicarb of 13. On arrival here patient's bicarbonate was less than 5 and serum osmolality was 329. Urine drug screen was negative. Nephrology was consulted. Dr. Perez place a dialysis catheter. Patient moved to the ICU. October 12: ICU. Getting IV fluids. Bicarbonate drip. Was dialyzed earlier. Once. On BiPAP. Lethargic. Just about arousable. 10/14/2021 This is a pleasant 76 years old male who presents with respiratory distress and imaging including CAT scan and CTA of the chest showing extensive pneumonia mainly on the right lung and to lesser degree on the left lung with some emphysematous changes. And now is being covered with broad-spectrum antibiotics for gram-negative bacteria and atypical bacteria including Zithromax and ceftriaxone. He needs BiPAP overnight and currently on 15 L oxygen via nasal cannula. Also patient has some wheezing on examination, pulmonary team following the patient closely. Cardiology on the case for new-onset A. fib and RVR and he is on heparin and Cardizem drip. Elevated troponin but patient with no chest pain or EKG changes. 10/15/2021 Patient today was still in respiratory distress eating BiPAP in the morning however during the day his oxygen requirement down to 10 L/m via nasal cannula. He denies chest pain however he developed A. fib and this morning his converted to sinus rhythm again and the Cardizem assisted drip which was started earlier was stopped however he still getting his heparin drip. This morning he was anxious so Ativan when necessary as provided and he was complaining of from significant coughing sorted Pertussin is provided. Low labs from today Continued on heparin drip, normal saline, Zithromax and ceftriaxone 10/16/2021 Today patient feels better with easier breathtaking however he still have tachypnea and dyspnea and his oxygen requirements still elevated although it's came down from 15 down to 12 L/m. He still needs to use BiPAP in the afternoon and last night. Repeat chest x-ray showing no significant change from previous with bilateral pneumonia more on the right side. His lab leukocytosis and 24,000. His heparin drip was switched Eliquis and started on aspirin 81 mg also he is on lisinopril 5 mg and metoprolol 50 mg. Lasix 20 mg twice daily has been added. On the floor his normal saline 100 down to 50 mL per hour as creatinine improved back to normal at 0.6 today. Urine G Is negative. Remains on Zithromax and ceftriaxone. Objective - Vital Signs Vital signs: Vital Signs Temp 98.7 F 10/16/21 08:50 Pulse 136 H 10/16/21 09:58 Resp 24 10/16/21 10:02 BP 190/96 10/16/21 08:50 Pulse Ox 93 L 10/16/21 10:02 Intake & Output 10/15/21 10/16/21 10/16/21 18:59 06:59 18:59 Intake Total 848 1147.641 Output Total 600 1800 Balance 248 1147.641 -1800 Weight 108.862 kg 108 kg Intake: Intake, IV Titration 250 177.641 Amount Heparin Sod,Pork in 0.45% 250 177.641 NaCl 25,000 unit In 0.45 % NaCl 1 250ml.bag @ 9. 186 UNITS/KG/HR 10 mls/hr IV .Q24H [facility] Rx#: [id number] Oral 598 970 Output: Urine 600 1800 Other: Voiding Method Urinal Urinal # Voids 1 1 - Exam GENERAL: The patient is alert and oriented x3, not in any acute distress. Well developed, well nourished. HEENT: Pupils are round and equally reacting to light. EOMI. No scleral icterus. No conjunctival pallor. Normocephalic, atraumatic. No pharyngeal erythema. No thyromegaly. CARDIOVASCULAR: S1 and S2 present. No murmurs, rubs, or gallops. -PULMONARY: Chest is clear to auscultation, scattered wheezing or crackles. Decreased breath sounds more on the right side. Today he is on BiPAP ABDOMEN: Soft, nontender, nondistended, normoactive bowel sounds. No palpable organomegaly. MUSCULOSKELETAL: No joint swelling or deformity. EXTREMITIES: No cyanosis, clubbing, or pedal edema. NEUROLOGICAL: Gross neurological examination did not reveal any focal deficits. SKIN: No rashes. no petechiae. - Labs CBC & Chem 7: 10/16/21 02:56 10/16/21 02:56 Labs: Abnormal Lab Results - Last 24 Hours (Table) 10/15/21 10/15/21 10/16/21 Range/Units 13:13 20:23 02:56 WBC 24.6 H (3.8-10.6) k/uL RBC 3.66 L (4.30-5.90) m/uL Hgb 11.9 L (13.0-17.5) gm/dL Hct 37.7 L (39.0-53.0) % MCV 103.1 H (80.0-100.0) fL Neutrophils # 12.6 H (1.3-7.7) k/uL Eosinophils # 8.2 H (0-0.7) k/uL APTT >200.0 H* 34.8 H (22.0-30.0) sec Chloride (98-107) mmol/L BUN (9-20) mg/dL Calcium (8.4-10.2) mg/dL 10/16/21 10/16/21 Range/Units 02:56 02:56 WBC (3.8-10.6) k/uL RBC (4.30-5.90) m/uL Hgb (13.0-17.5) gm/dL Hct (39.0-53.0) % MCV (80.0-100.0) fL Neutrophils # (1.3-7.7) k/uL Eosinophils # (0-0.7) k/uL APTT 68.3 H (22.0-30.0) sec Chloride 113 H (98-107) mmol/L BUN 26 H (9-20) mg/dL Calcium 7.9 L (8.4-10.2) mg/dL Microbiology - Last 24 Hours (Table) 10/13/21 14:20 Blood Culture - Preliminary Blood No Growth after 48 hours 10/13/21 14:20 Blood Culture - Preliminary Blood No Growth after 48 hours 10/13/21 16:53 Gram Stain - Final Sputum Sputum Culture - Final Assessment and Plan Assessment: - Bilateral community acquired pneumonia, more on the right side. Continue with ceftriaxone and Zithromax. Pulmonary team on the case, follow-up sputum and blood cultures -New-onset atrial fibrillation with RVR Continue with metoprolol, Eliquis. Aspirin and cardiology team on the case -Acute kidney injury, resolved -Severe metabolic acidosis. Improved -Severe sepsis from pneumonia. Stable IV fluids. Continue with gentle hydration and monitor blood pressure -Acute COPD exacerbation and a prior smoker Discontinue systemic steroids per pulmonary team. Symbicort per pulmonary team -Acute severe hypoxic respiratory failure from pneumonia Currently on BiPAP and 15 L high flow nasal cannula -Essential hypertension Continue with same antihypertensive medication -Restless leg syndrome Mirapex 1 mg twice a day -Depression Zoloft 100 mg daily Primary osteoarthritis multiple joints bilaterally [place] 10 every 6hr DVT prophylaxis: Heparin GI prophylaxis: Pepcid
[2021-10-16] MEDS: METOPROLOL TARTRATE 50 MG TAB PO SCH ×3 (13:26→22:42)
--- NOTE | 2021-10-16 13:27 | P.PN ---
Subjective Progress Note Date: 10/16/21 76-year-old male with a history of COPD, who presents to the emergency department on October 13, complaining of shortness of breath. The patient also complains of cough, dizziness, fever, chills, and phlegm production. The patient has been feeling well as mentioned above for at least 2-3 weeks. The patient was evaluated in the emergency department. He was found have atrial fibrillation with rapid ventricular response. In addition, his chest x-ray and CAT scan suggested pneumonia, with significant consolidation and abnormalities noted more so in the right lung that in the left. The patient has been vaccinated fully. We saw him in the emergency department, room 6, he was on BiPAP, with settings of IPAP 12, EPAP 6, and 60%. The patient was on IV heparin via weight based protocol, and a Cardizem drip at 15 mg an hour. The patient was lying flat in bed. He did not appear to have a great deal of respiratory difficulty. White count 22,000, hemoglobin 13, hematocrit 42.1, platelet count 326,000. PT 13, INR 1.2, PTT 38.3. D-dimer was 7.48. Sodium, potassium, chloride, CO2, and anion gap are all normal BUN was 38 creatinine of 1.53. Troponin was elevated at 2.06, 1.74, and 1.24. Testing for mae virus was negative. He was no pulmonary embolism on CT angiogram. In addition, there was mediastinal bilateral hilar lymphadenopathy, measuring up to 5.2 cm. The patient is seen today 10/15/2021 in follow-up on the selective care unit. He is currently resting comfortably in bed. He is alert in no acute distress. Off the BiPAP and currently on 9 L high flow nasal cannula. He has normal saline running at 100 ML's per hour. He is feeling a bit better today compared to yesterday. Still with a loose nonproductive cough. Sputum culture revealed no growth. Blood cultures reveal no growth. Urine legionella antigen negative. He remains on a heparin drip. Continued on Symbicort, DuoNeb inhalations, antibiotics in the form of ceftriaxone and azithromycin. Patient is seen today 10/16/2021 in follow-up on the selective care unit. He is currently resting fairly comfortably in bed. He is on BiPAP 12/660% FiO2. He has normal saline running at 20 ML's per hour. Continued on a heparin drip. Blood cultures revealed no growth. Sputum cultures revealed no growth. White count 24.6. Hemoglobin 11.9. Sodium 141. Potassium 4.2. Creatinine 0.67. He remains on DuoNeb inhalations, Symbicort, antibiotics in the form of azithromycin and ceftriaxone. This x-ray continues to show bilateral patchy air space disease right greater than left. Objective - Vital Signs Vital signs: Vital Signs Temp 98.4 F 10/16/21 13:07 Pulse 136 H 10/16/21 13:07 Resp 18 10/16/21 13:07 BP 138/70 10/16/21 13:07 Pulse Ox 94 L 10/16/21 13:07 Intake & Output 10/15/21 10/16/21 10/16/21 18:59 06:59 18:59 Intake Total 848 1147.641 71.095 Output Total 600 2400 Balance 248 1147.641 -2328.905 Weight 108.862 kg 108 kg Intake: Intake, IV Titration 250 177.641 71.095 Amount Heparin Sod,Pork in 0.45% 250 177.641 71.095 NaCl 25,000 unit In 0.45 % NaCl 1 250ml.bag @ 9. 186 UNITS/KG/HR 10 mls/hr IV .Q24H [facility] Rx#: [id number] Oral 598 970 Output: Urine 600 2400 Other: Voiding Method Urinal Urinal Urinal # Voids 1 1 - Exam GENERAL EXAM: Alert, very pleasant 76-year-old gentleman, on BiPAP 12/6 and 60% FiO2, fairly comfortable in no apparent distress. HEAD: Normocephalic. EYES: Normal reaction of pupils, equal size. NOSE: Clear with pink turbinates. THROAT: No erythema or exudates. NECK: No masses, no JVD. CHEST: No chest wall deformity. LUNGS: Equal air entry with coarse bilateral rhonchi CVS: S1 and S2 normal with no audible murmur, regular rhythm. ABDOMEN: No hepatosplenomegaly, normal bowel sounds, no guarding or rigidity. SPINE: No scoliosis or deformity SKIN: No rashes CENTRAL NERVOUS SYSTEM: No focal deficits, tone is normal in all 4 extremities. EXTREMITIES: There is no peripheral edema. No clubbing, no cyanosis. Peripheral pulses are intact. - Labs CBC & Chem 7: 10/16/21 02:56 10/16/21 02:56 Labs: Abnormal Lab Results - Last 24 Hours (Table) 10/15/21 10/15/21 10/16/21 Range/Units 13:13 20:23 02:56 WBC 24.6 H (3.8-10.6) k/uL RBC 3.66 L (4.30-5.90) m/uL Hgb 11.9 L (13.0-17.5) gm/dL Hct 37.7 L (39.0-53.0) % MCV 103.1 H (80.0-100.0) fL Neutrophils # 12.6 H (1.3-7.7) k/uL Eosinophils # 8.2 H (0-0.7) k/uL APTT >200.0 H* 34.8 H (22.0-30.0) sec Chloride (98-107) mmol/L BUN (9-20) mg/dL Calcium (8.4-10.2) mg/dL 10/16/21 10/16/21 Range/Units 02:56 02:56 WBC (3.8-10.6) k/uL RBC (4.30-5.90) m/uL Hgb (13.0-17.5) gm/dL Hct (39.0-53.0) % MCV (80.0-100.0) fL Neutrophils # (1.3-7.7) k/uL Eosinophils # (0-0.7) k/uL APTT 68.3 H (22.0-30.0) sec Chloride 113 H (98-107) mmol/L BUN 26 H (9-20) mg/dL Calcium 7.9 L (8.4-10.2) mg/dL Microbiology - Last 24 Hours (Table) 10/13/21 14:20 Blood Culture - Preliminary Blood No Growth after 48 hours 10/13/21 14:20 Blood Culture - Preliminary Blood No Growth after 48 hours 10/13/21 16:53 Gram Stain - Final Sputum Sputum Culture - Final Assessment and Plan Assessment: 1 Hypoxemic respiratory failure, multifactorial, in part related to bilateral pneumonia, right greater than left, as well as atrial fibrillation with RVR. 2 Elevated troponins, which may reflect non-ST segment elevation myocardial infarctions, versus supply/demand mismatch. Currently on a heparin drip 3 Mild/moderate acute kidney injury. 4 History of COPD. 5 History of hypertension. 6 History of obstructive sleep apnea syndrome. 7 History of skin cancer. 8 Prior history of pneumonia. 9 Prior history of tobacco use. Plan: The patient was seen and evaluated X-ray and labs reviewed On BiPAP 12/6 and 60% FiO2 Continued on ceftriaxone and azithromycin Continued on DuoNeb inhalations Discontinue Symbicort, add Pulmicort and Perforomist Add IV Solu-Medrol 40 mg every 8 hours hours Being transitioned to Eliquis Titrate the FiO2 as tolerated We'll continue to follow I, the cosigning physician, performed a history & physical examination of the patient. Lungs sounds bilateral scattered rhonchi. Maintaining O2 saturations in the 90s on BiPAP 12/6 at 60% FiO2. I discussed the assessment and plan of care with my nurse practitioner, Margy Reyes. I attest to the above note as dictated by her.
[2021-10-16] MEDS: ALPRAZolam 0.25 MG TAB PO PRN (18:19)
[2021-10-16] MEDS: SERTRALINE 100 MG TAB PO SCH (18:20)
[2021-10-16] MEDS: methylPREDNISolone SOD SUCCI 40 MG/ML 1 ML VIAL IV SCH ×2 (18:20→22:43)
[2021-10-16] MEDS: BUDESONIDE 1 MG/2 ML NEBU INHALATION SCH (19:55)
[2021-10-16] MEDS: FORMOTEROL FUMARATE 20 MCG/2 ML NEBU INHALATION SCH (19:55)
[2021-10-16] MEDS: ATORVASTATIN 80 MG TAB PO SCH (20:24)
[2021-10-17] MEDS: MORPHINE SULFATE ER 15 MG TABLET PO SCH ×2 (05:56→16:45)
[2021-10-17] MEDS: PRAMIPEXOLE 1 MG TAB PO SCH ×2 (05:57→16:44)
[2021-10-17] MEDS: HYDROcodone/APAP 10-325MG 1 EACH TAB PO SCH ×4 (05:57→22:47)
[2021-10-17] MEDS: BUDESONIDE 1 MG/2 ML NEBU INHALATION SCH ×2 (07:55→19:44)
[2021-10-17] MEDS: FORMOTEROL FUMARATE 20 MCG/2 ML NEBU INHALATION SCH ×2 (07:55→19:44)
[2021-10-17] MEDS: IPRATROPIUM-ALBUTEROL 3 ML NEB INHALATION SCH ×4 (07:55→19:44)
[2021-10-17] MEDS: methylPREDNISolone SOD SUCCI 40 MG/ML 1 ML VIAL IV SCH ×3 (10:05→22:47)
[2021-10-17] MEDS: FAMOTIDINE 20 MG TAB PO SCH (10:06)
[2021-10-17] MEDS: METOPROLOL TARTRATE 50 MG TAB PO SCH ×3 (10:06→21:04)
[2021-10-17] MEDS: lisinopriL 5 MG TAB PO SCH (10:06)
[2021-10-17] MEDS: APIXABAN 5 MG TAB PO SCH ×2 (10:06→21:04)
[2021-10-17] MEDS: ASPIRIN 81 MG PO SCH (10:07)
[2021-10-17] MEDS: FUROSEMIDE 10 MG/ML 2 ML VIAL IV SCH ×2 (10:07→21:05)
[2021-10-17] MEDS: AZITHROMYCIN 500 MG TAB PO SCH (10:07)
[2021-10-17] MEDS: SODIUM CHLORIDE 0.9% 1,000 ML IV SCH (11:00)
--- NOTE | 2021-10-17 13:09 | P.PN ---
Subjective Progress Note Date: 10/17/21 HISTORY OF PRESENT ILLNESS: This is a 76-year-old gentleman with a past medical history significant for hypertension and dyslipidemia and sleep apnea and also chronic obstructive pulm onary disease, presented to the emergency department complaining of shortness of breath. We consulted to see the patient for further evaluation of abnormal cardiac enzymes and elevated troponin. The patient states that for the last few days he has not been feeding well. He has been experiencing increasing in the temperature associated with cough productive of sputum. Beside that he was experiencing increasing in the shortness of breath but no symptoms of chest pain or chest discomfort and no dizziness or lightheadedness or any feeling of heart racing or fluttering or presyncope or syncope. In the ER the patient was found to be hypoxic with oxygen saturation of 75% and subsequently he was placed on BiPAP with improvement in his oxygenation. Also he presented to the emergency department he was in atrial fibrillation with RVR and subsequently converted to normal sinus mechanism after he was started on Cardizem IV. Currently he is in sinus rhythm was sinus bradycardia. He still on Cardizem IV. He is also on heparin IV. The patient underwent a workup including EKG as described earlier showing A. fib with diffuse nonspecific ST and T wave abnormalities. No EKG after the patient was converted to normal sinus mechanism. Also the troponin came in to be elevated. The chest x-ray showed findings consistent with a pneumonia. He underwent a computed tomography scan of the chest which showed multiple findings including no pulmonary embolism, bilateral hilar adenopathy, bilateral infiltrate, and also small to moderate pericardial effusion, heart failure. The patient has no history of coronary artery disease or congestive heart failure or any cardiac arrhythmia and never seen any customer success director in the past. When he was seen and examined he was in bilateral expiratory wheezing with regular heart sounds and states bilateral lower extremities edema 10/15/21 Patient was seen and fully evaluated at the bedside this morning. Patient resting comfortably on BiPAP with FiO2 of 60% oxygen saturation 94%. He reports feeling better this morning. He denies having any chest pain, palpitations, shortness of breath, dizziness/lightheadedness, or any other complaints. Patient remains in normal sinus rhythm at time of assessment. He remains on IV heparin and we will plan to transition to oral anticoagulant once patient has been weaned off of BiPAP. Echocardiogram revealed an EF between 50 and 55% with mild mitral and tricuspid regurgitation, mild aortic valve sclerosis, and moderately enlarged right ventricle with left ventricular hypertrophy. 10/16/21 Patient seen and fully evaluated at the bedside this morning. He has been weaned off BiPAP and was on 10 L O2 via high flow nasal cannula to allow patient to eat breakfast. SpO2 89%. Patient denies any chest pain, palpitations, shortness of breath, or experiencing any dizziness/lightheadedness at this time. Patient had slight conversational dyspnea noted and lungs with diffuse coarse crackles bilaterally. Vital signs reviewed patient continues to have rapid ventricular rate ranging from 90s to 120s and is hypertensive with blood pressure 190/96. Metoprolol increased to 50 mg daily and additional medications including lisinopril 5 mg daily, aspirin 81 mg daily and Lasix 20 mg IVP every 12 hours were also added this morning. Heparin discontinued and patient started on oral anticoagulation with Eliquis 5 mg twice daily. 10/17/21 Patient examined this morning at the bedside. Patient denies chest pain or pressure. He denies any SOB. He remains on Bipap. Telemetry reveals sinus mechanism. He is anticoagulated with Eliquis. Vital signs are stable. PHYSICAL EXAM: VITAL SIGNS: Reviewed. GENERAL: Well-developed in no acute distress. NECK: Supple. No JVD or thyromegaly LUNGS: Respirations even and unlabored. Lungs diminished with expiratory wheezing and crackles to bilateral bases. HEART: Regular rate and rhythm. S1 and S2 heard. EXTREMITIES: Normal range of motion. No clubbing or cyanosis. Peripheral pulses intact. No lower extremity edema ASSESSMENT: Bilateral pneumonia Acute COPD exacerbation Hypoxemia secondary to the above New onset paroxysmal atrial fibrillation with RVR, currently maintaining sinus mechanism Type II NSTEMI resulting from demand ischemia from RVR Obstructive sleep apnea PLAN: Continue current cardiac medications Continue IV lasix Continue to monitor kidney function and accurate I&O Continue anticoagulation with Eliquis Further recommendations pending patient course Nurse practitioner note has been reviewed by physician. Signing provider agrees with the documented findings, assessment, and plan of care. Objective - Vital Signs Vital signs: Vital Signs Temp 97.7 F 10/17/21 08:00 Pulse 92 10/17/21 11:42 Resp 18 10/17/21 10:11 BP 145/71 10/17/21 08:00 Pulse Ox 91 L 10/17/21 10:11 Intake & Output 10/16/21 10/17/21 10/17/21 18:59 06:59 18:59 Intake Total 71.095 360 360 Output Total 3000 2250 700 Balance -2928.905 -1890 -224 Intake: Intake, IV Titration 71.095 240 Amount Heparin Sod,Pork in 0.45% 71.095 NaCl 25,000 unit In 0.45 % NaCl 1 250ml.bag @ 9. 186 UNITS/KG/HR 10 mls/hr IV .Q24H [facility] Rx#: [id number] Sodium Chloride 0.9% 1, 240 000 ml @ 50 mls/hr IV . Q20H [facility] Rx#:[id number] Oral 120 360 Output: Urine 3000 2250 700 Other: Voiding Method Urinal - Labs CBC & Chem 7: 10/16/21 02:56 10/16/21 02:56 Labs: Microbiology - Last 24 Hours (Table) 10/13/21 14:20 Blood Culture - Preliminary Blood No Growth after 72 hours 10/13/21 14:20 Blood Culture - Preliminary Blood No Growth after 72 hours
--- NOTE | 2021-10-17 13:52 | P.PN ---
Subjective Progress Note Date: 10/17/21 76-year-old male with a history of COPD, who presents to the emergency department on October 13, complaining of shortness of breath. On today's evaluation of 10/17/2021, the patient is being seen for a follow-up. Is a 76-year-old male patient with known history of COPD with previous bouts of pneumonias. The patient came into the hospital because of another bout of bilateral pneumonia with extensive consolidation of the right lung and some ongoing consolidation of the left lung base. The patient was quite hypoxic, supported with BiPAP, supported with IV antibiotics. The patient was also found to be in atrial fibrillation and rapid ventricular response and the patient was started on IV heparin and Cardizem drip for rate control. Noted the patient's COVID 19 testing was negative and the patient tested negative for COVID 19 infection.. Note that the patient also had a CAT scan of the chest that showed mediastinal bilateral hilar lymphadenopathy measuring up to 5.2 cm in size. This morning, the patient is still coughing. He was taken off the BiPAP and he is on 9 L about 2 by nasal cannula. He remains on DuoNeb nebulized treatment [id number]. Antibiotic coverage is with a combination of Rocephin and Zithromax. Chest x-ray from yesterday showed bilateral patchy airspace disease right more than left. The white cell count remains elevated at 24.6 with a hemoglobin of 11.9. Platelets of 277. The patient's PTT is therapeutic at 68. Electrodes are normal. No function is normal. Legionella urine antigen has been negative. The pro calcitonin level has not been checked in the level was sent. Troponin peaked at 1.7-1.2. Objective - Vital Signs Vital signs: Vital Signs Temp 98.5 F 10/17/21 12:00 Pulse 70 10/17/21 12:00 Resp 18 10/17/21 12:00 BP 143/60 10/17/21 12:00 Pulse Ox 95 10/17/21 12:00 Intake & Output 10/16/21 10/17/21 10/17/21 18:59 06:59 18:59 Intake Total 71.095 360 360 Output Total 3000 2250 700 Balance -2928.905 -1890 -340 Intake: Intake, IV Titration 71.095 240 Amount Heparin Sod,Pork in 0.45% 71.095 NaCl 25,000 unit In 0.45 % NaCl 1 250ml.bag @ 9. 186 UNITS/KG/HR 10 mls/hr IV .Q24H [facility] Rx#: [id number] Sodium Chloride 0.9% 1, 240 000 ml @ 50 mls/hr IV . Q20H [facility] Rx#:[id number] Oral 120 360 Output: Urine 3000 2250 700 Other: Voiding Method Urinal - Exam GENERAL EXAM: Alert, very pleasant 76-year-old gentleman, on BiPAP 12/6 and 60% FiO2, fairly comfortable in no apparent distress. Currently the patient is on 9 L of oxygen by nasal cannula he was taken off the BiPAP. HEAD: Normocephalic. EYES: Normal reaction of pupils, equal size. NOSE: Clear with pink turbinates. THROAT: No erythema or exudates. NECK: No masses, no JVD. CHEST: No chest wall deformity. LUNGS: Equal air entry with coarse bilateral rhonchi CVS: S1 and S2 normal with no audible murmur, regular rhythm. ABDOMEN: No hepatosplenomegaly, normal bowel sounds, no guarding or rigidity. SPINE: No scoliosis or deformity SKIN: No rashes CENTRAL NERVOUS SYSTEM: No focal deficits, tone is normal in all 4 extremities. EXTREMITIES: There is no peripheral edema. No clubbing, no cyanosis. Peripheral pulses are intact. - Labs CBC & Chem 7: 10/16/21 02:56 10/16/21 02:56 Labs: Microbiology - Last 24 Hours (Table) 10/13/21 14:20 Blood Culture - Preliminary Blood No Growth after 72 hours 10/13/21 14:20 Blood Culture - Preliminary Blood No Growth after 72 hours Assessment and Plan Plan: 1 acute hypoxic respiratory failure second to bilateral pneumonia right more than left. This is most likely a bacterial infection. COVID 19 evaluation came back negative and the patient had a negative Legionella urine antigen. The patient remains on broad-spectrum antibiotics. The patient was also supported with BiPAP for respiratory support 2 acute non-ST segment elevation myocardial infarction, currently on IV heparin 3 acute kidney injury, improving 2 acute atrial fibrillation with rapid ventricular response with a heart rate as high as 130 3 dyspnea secondary to above 4 History of COPD. 5 History of hypertension. 6 History of obstructive sleep apnea syndrome. 7 History of skin cancer. 8 Prior history of pneumonia.the patient's previous cultures from 04/02/2019 was strep pneumonia and pseudomonas aeruginosa. 9 Prior history of tobacco use. Plan: Discontinued IV Rocephin and switch this patient IV cefepime and keep the Zithromax for now Repeat chest x-ray in the morning On BiPAP 12/6 and 60% FiO2 on and off during the day and the patient is currently on 9 L about 2 by nasal cannula Continued on DuoNeb inhalations Pulmicort and Perforomist IV Solu-Medrol 40 mg every 8 hours hours Anticoagulations with Dilma Back End Web Developer of the case regarding the acute non-STEMI Titrate the FiO2 as tolerated We'll continue to follow
[2021-10-17] MEDS: CEFEPIME 2 GM in SODIUM CHLORIDE 0.9% 100 ML IVPB SCH ×2 (16:43→21:06)
[2021-10-17] MEDS: SERTRALINE 100 MG TAB PO SCH (16:44)
--- NOTE | 2021-10-17 19:13 | P.PN ---
Progress Note - Text Progress Note Date: 10/17/21 Chief Complaint: Short of breath Hospital course This is a pleasant 76-year-old patient of Dr. Sultana. Chronic stable medical conditions include hypertension, obstructive sleep apnea, DJD, obesity. Depression, Patient presented increasing shortness of breath for 1 week, wheezing. Cough fever periods Sputum Production. Decrease Appetite Tired Rundown. Symptoms Became Progressively Worse. Found to Pulse Ox of 75% in the ER. Put on a BiPAP. Antibiotics. Bronchodilators. Admitted with bilateral pneumonia right greater than left, atrial fibrillation rapid ventricular rate, sepsis, COPD exacerbation. Started on IV cefepime, bronchodilators, IV steroids, IV heparin, IV Cardizem drip. Patient requiring BiPAP. Patient was changed over from IV heparin to eliquis. Beta blockers added. October 17: Breathing better. Decreased sputum production. On 12 L high flow nasal cannula. Had about half his breakfast. Not much appetite for lunch. Requested the patient sit up in a chair. Tired. Patient has been in sinus rhythm. Review of systems: Was done for constitutional, cardiovascular, GI, pulmonary. relevant finding as above Active Medications Acetaminophen (Acetaminophen Tab 325 Mg Tab) 650 mg PO Q6HR PRN PRN Reason: Mild Pain or Fever > 100.5 Hydrocodone Bitart/Acetaminophen (Hydrocodone/Apap 10-325mg 1 Each Tab) 1 each PO Q8HR PRN PRN Reason: Pain Hydrocodone Bitart/Acetaminophen (Hydrocodone/Apap 10-325mg 1 Each Tab) 1 each PO Q6H [facility] Last Admin: 10/17/21 18:11 Dose: Not Given Documented by: Albuterol/Ipratropium (Ipratropium-Albuterol 3 Ml Neb) 3 ml INHALATION RT-Q4H PRN PRN Reason: Shortness Of Breath Or Wheezing Last Admin: 10/17/21 11:28 Dose: 3 ml Documented by: Albuterol/Ipratropium (Ipratropium-Albuterol 3 Ml Neb) 3 ml INHALATION RT-QID [facility] Last Admin: 10/17/21 15:33 Dose: 3 ml Documented by: Alprazolam (Alprazolam 0.25 Mg Tab) 0.25 mg PO Q6HR PRN PRN Reason: Anxiety Last Admin: 10/16/21 18:19 Dose: 0.25 mg Documented by: Apixaban (Apixaban 5 Mg Tab) 5 mg PO BID [facility]; Protocol Last Admin: 10/17/21 10:06 Dose: 5 mg Documented by: Aspirin (Aspirin 81 Mg) 81 mg PO DAILY [facility] Last Admin: 10/17/21 10:07 Dose: 81 mg Documented by: Atorvastatin Calcium (Atorvastatin 80 Mg Tab) 80 mg PO HS [facility] Last Admin: 10/16/21 20:24 Dose: 80 mg Documented by: Azithromycin (Azithromycin 500 Mg Tab) 500 mg PO DAILY [facility] Last Admin: 10/17/21 10:07 Dose: 500 mg Documented by: Budesonide (Budesonide 1 Mg/2 Ml Nebu) 1 mg INHALATION RT-BID [facility] Last Admin: 10/17/21 07:55 Dose: 1 mg Documented by: Calcium Carbonate/Glycine (Calcium Carbonate 500 Mg Chewable) 1,000 mg PO Q4HR PRN PRN Reason: Dyspepsia Last Admin: 10/14/21 18:02 Dose: 1,000 mg Documented by: Famotidine (Famotidine 20 Mg Tab) 20 mg PO DAILY [facility] Last Admin: 10/17/21 10:06 Dose: 20 mg Documented by: Formoterol Fumarate (Formoterol Fumarate 20 Mcg/2 Ml Nebu) 20 mcg INHALATION RT-BID [facility] Last Admin: 10/17/21 07:55 Dose: 20 mcg Documented by: Furosemide (Furosemide 10 Mg/Ml 2 Ml Vial) 20 mg IV Q12HR [facility] Last Admin: 10/17/21 10:07 Dose: 20 mg Documented by: Guaifenesin/Dextromethorphan (Guaifenesin-Dm 100-10mg/5ml 10 Ml Cup) 10 ml PO Q6HR PRN PRN Reason: Cough Sodium Chloride (Saline 0.9%) 1,000 mls @ 50 mls/hr IV .Q20H [facility] Last Admin: 10/17/21 11:00 Dose: 50 mls/hr Documented by: Cefepime HCl 2 gm/ Sodium (Chloride) 100 mls @ 25 mls/hr IVPB Q12HR [facility] Last Admin: 10/17/21 16:43 Dose: 25 mls/hr Documented by: Lactulose (Lactulose 20 Gm/30 Ml Cup) 20 gm PO DAILY PRN PRN Reason: Constipation Lisinopril (Lisinopril 5 Mg Tab) 5 mg PO DAILY [facility] Last Admin: 10/17/21 10:06 Dose: 5 mg Documented by: Lorazepam (Lorazepam 2 Mg/Ml Inj) 0.5 mg IV Q8HR PRN PRN Reason: Anxiety Last Admin: 10/15/21 09:14 Dose: 0.5 mg Documented by: Melatonin (Melatonin 3 Mg Tablet) 3 mg PO HS PRN PRN Reason: Insomnia Methylprednisolone Sodium Succinate (Methylprednisolone Sod Succi 40 Mg/Ml 1 Ml Vial) 40 mg IV Q8HR [facility] Last Admin: 10/17/21 16:44 Dose: 40 mg Documented by: Metoprolol Tartrate (Metoprolol Tartrate 50 Mg Tab) 50 mg PO TID [facility] Last Admin: 10/17/21 16:44 Dose: 50 mg Documented by: Morphine Sulfate (Morphine Sulfate Er 15 Mg Tablet) 15 mg PO BID@0600,1600 [facility]; Protocol Last Admin: 10/17/21 16:45 Dose: 15 mg Documented by: Naloxone HCl (Naloxone 0.4 Mg/Ml 1 Ml Vial) 0.2 mg IV Q2M PRN PRN Reason: Opioid Reversal Ondansetron HCl (Ondansetron 4 Mg/2 Ml Vial) 4 mg IVP Q8HR PRN PRN Reason: Nausea And Vomiting Pramipexole Dihydrochloride (Pramipexole 1 Mg Tab) 1 mg PO BID@0600,1600 [facility] Last Admin: 10/17/21 16:44 Dose: 1 mg Documented by: Sertraline HCl (Sertraline 100 Mg Tab) 100 mg PO DAILY@1600 [facility] Last Admin: 10/17/21 16:44 Dose: 100 mg Documented by: Past medical history to include: COPD, hypertension, obstructive sleep apnea, DJD, skin cancer Social history: . Smoked for 30 years stopped in 1979. Family history: Reviewed, noncontributory to presentation Physical examination: VITAL SIGNS: 96.4, 68, 18, 135-67, 94% on 2 L GENERAL:, reclining bed, awake, tired EYES: Pupils equal. Conjunctiva normal. HEENT: External appearance of nose and ears normal, oral cavity grossly normal. NECK: JVD unable to assess; masses not palpable. HEART: First and second heart sounds are normal; no edema. LUNGS: Respiratory rate increased decreased breath sounds, ABDOMEN: Soft, nontender, liver spleen not palpable, no masses palpable. PSYCH: Alert and oriented x3; mood and affect tired MUSCULOSKELETAL:No Clubbing/cyanosis;muscles-grossly intact INVESTIGATIONS, reviewed in the clinical context: October 17: White count 24.6 hemoglobin 11.9 platelets 277 sodium 141 potassium 4.2 creatinine 0.67. Pro-calcitonin 0.06Chest x-ray film personally reviewed by me-[October 16] significant right-sided infiltrates White count 25.6 hemoglobin 15.9 platelets 324 increased neutrophils d-dimer 7.48 sodium 138 potassium 4.2. 38 creatinine 1.53 lactic acid 3.8 Troponin I 2.0, 1.7, 1.2 Coronavirus [PCR]: Not detected EKG tracing personally reviewed by me-atrial fibrillation ST-T wave changes, rate 138 Chest angiogram chest: Moderate emphysema. Extensive patchy and confluent consolidation throughout the right lung. Some of the left side 2. Hilar lymphadenopathy. Chest x-ray film personally reviewed by me-extensive infiltrate on the right mid zone and some on the left side Assessment and plan: -Severe bilateral pneumonia predominantly right-sided gram-negative organism: Slow to respond Cefepime 2 g every 12 hour -Severe sepsis from pneumonia IV fluids. Antibiotics. -Paroxysmal Atrial fibrillation rapid ventricular rate on presentation. Currently in sinus rhythm Beta valente. 2-D echo. Received: IV heparin. IV Cardizem drip] Eliquis, Lopressor 50 mg 3 times a day IV heparin monitoring: Discontinued Follow PTT -Acute COPD exacerbation in a prior smoker: Slow to respond DuoNeb. IV Solu-Medrol -Acute severe hypoxic respiratory failure from pneumonia: Slow to respond Intermittent BiPAP. 12 L high flow nasal cannula -Essential hypertension Cystoscopy 10 mg daily Toprol-XL 25 mg daily -Restless leg syndrome Mirapex 1 mg twice a day -Depression Zoloft 100 mg daily Primary osteoarthritis multiple joints bilaterally [place] 10 every 6 IV cefepime. IV Solu-Medrol. Bronchodilators. Lopressor. 12 L nasal cannula. Intermittent BiPAP. Try to have the patient sit up in a chair.
[2021-10-17] MEDS: ATORVASTATIN 80 MG TAB PO SCH (21:04)
[2021-10-18] MEDS: MORPHINE SULFATE ER 15 MG TABLET PO SCH ×2 (05:48→18:25)
[2021-10-18] MEDS: HYDROcodone/APAP 10-325MG 1 EACH TAB PO SCH ×4 (05:48→23:25)
[2021-10-18] MEDS: PRAMIPEXOLE 1 MG TAB PO SCH ×2 (06:03→18:25)
[2021-10-18] MEDS: SODIUM CHLORIDE 0.9% 1,000 ML IV SCH (08:00)
[2021-10-18 08:14] LABS: Basophils % (A) 0 %; Eosinophils # (A) 0.3 k/uL (0-0.7); Eosinophils % (A) 2 %; HCT 40.9 % (39.0-53.0); HGB 12.5 gm/dL (13.0-17.5); Hypochromasia Slight; Lymphocytes # (A) 2.1 k/uL (1.0-4.8); Lymphocytes % (A) 11 %; MCH 31.2 pg (25.0-35.0); MCHC 30.6 g/dL (31.0-37.0); MCV 102.1 fL (80.0-100.0); Macrocytosis Slight; Monocytes # (A) 0.8 k/uL (0-1.0); Monocytes % (A) 4 %; Neutrophils # (A) 14.7 k/uL (1.3-7.7); Neutrophils % (A) 82 %; Platelet Count 294 k/uL (150-450); RDW 14.4 % (11.5-15.5)
[2021-10-18 08:27] LABS: ALT 27 U/L (4-49); AST 24 U/L (17-59); African American GFR (CKD) >90 (>60 ml/min/1.73 sqM); Alkaline Phosphatase 76 U/L (38-126); Anion Gap 4 mmol/L; Blood Urea Nitrogen 20 mg/dL (9-20); Calcium 8.3 mg/dL (8.4-10.2); Carbon Dioxide 29 mmol/L (22-30); Chloride 105 mmol/L (98-107); Glucose 105 mg/dL (74-99); Non-African American GFR(CKD) >90 (>60 ml/min/1.73 sqM); Potassium 4.3 mmol/L (3.5-5.1); Sodium 138 mmol/L (137-145); Total Bilirubin 1.1 mg/dL (0.2-1.3)
[2021-10-18] MEDS: BUDESONIDE 1 MG/2 ML NEBU INHALATION SCH ×2 (08:34→19:59)
[2021-10-18] MEDS: IPRATROPIUM-ALBUTEROL 3 ML NEB INHALATION SCH ×4 (08:34→19:59)
[2021-10-18] MEDS: FORMOTEROL FUMARATE 20 MCG/2 ML NEBU INHALATION SCH ×2 (08:35→19:59)
--- NOTE | 2021-10-18 08:39 | XR ---
EXAMINATION TYPE: XR chest 1V portable DATE OF EXAM: 10/18/2021 COMPARISON: Chest x-ray 10/16/2021, CT 10/13/2021 HISTORY: Pneumonia TECHNIQUE: Single frontal view of the chest is obtained. FINDINGS: Airspace disease shows a similar appearance compared to prior exam. There is no evident pn eumothorax or pleural effusion. Heart is prominent, appearance may be accentuated by technique, cardi ac mediastinal silhouette not significantly changed. Chronic appearing rib deformities noted in the u pper posterior right chest. There are overlying leads. Apical pleural thickening on the right shows a similar appearance. Arthropathy noted in the left shoulder. IMPRESSION: Findings consistent with pneumonia. There is underlying emphysema. There is underlying m ediastinal and hilar adenopathy.
[2021-10-18] MEDS: methylPREDNISolone SOD SUCCI 40 MG/ML 1 ML VIAL IV SCH ×3 (09:14→23:26)
[2021-10-18] MEDS: APIXABAN 5 MG TAB PO SCH ×2 (09:15→21:40)
[2021-10-18] MEDS: ASPIRIN 81 MG PO SCH (09:15)
[2021-10-18] MEDS: AZITHROMYCIN 500 MG TAB PO SCH (09:16)
[2021-10-18] MEDS: CEFEPIME 2 GM in SODIUM CHLORIDE 0.9% 100 ML IVPB SCH ×2 (09:16→21:40)
[2021-10-18] MEDS: FUROSEMIDE 10 MG/ML 2 ML VIAL IV SCH (09:18)
[2021-10-18] MEDS: FAMOTIDINE 20 MG TAB PO SCH (09:18)
[2021-10-18] MEDS ORDERED: VANCOMYCIN IV PER PHARMACY 1 EACH MISC MISCELLANE PRN (09:20)
[2021-10-18] MEDS: METOPROLOL TARTRATE 50 MG TAB PO SCH ×3 (09:23→21:40)
[2021-10-18] MEDS: lisinopriL 5 MG TAB PO SCH ×2 (09:23→21:40)
[2021-10-18] MEDS ORDERED: VANCOMYCIN 2,000 MG in SODIUM CHLORIDE 0.9% 500 ML 500 ML IVPB ONE (10:00)
--- NOTE | 2021-10-18 10:45 | P.PN ---
Subjective Progress Note Date: 10/18/21 76-year-old male with a history of COPD, who presents to the emergency department on October 13, complaining of shortness of breath. On today's evaluation of 10/17/2021, the patient is being seen for a follow-up. Is a 76-year-old male patient with known history of COPD with previous bouts of pneumonias. The patient came into the hospital because of another bout of bilateral pneumonia with extensive consolidation of the right lung and some ongoing consolidation of the left lung base. The patient was quite hypoxic, supported with BiPAP, supported with IV antibiotics. The patient was also found to be in atrial fibrillation and rapid ventricular response and the patient was started on IV heparin and Cardizem drip for rate control. Noted the patient's COVID 19 testing was negative and the patient tested negative for COVID 19 infection.. Note that the patient also had a CAT scan of the chest that showed mediastinal bilateral hilar lymphadenopathy measuring up to 5.2 cm in size. This morning, the patient is still coughing. He was taken off the BiPAP and he is on 9 L about 2 by nasal cannula. He remains on DuoNeb nebulized treatment [id number]. Antibiotic coverage is with a combination of Rocephin and Zithromax. Chest x-ray from yesterday showed bilateral patchy airspace disease right more than left. The white cell count remains elevated at 24.6 with a hemoglobin of 11.9. Platelets of 277. The patient's PTT is therapeutic at 68. Electrodes are normal. No function is normal. Legionella urine antigen has been negative. The pro calcitonin level has not been checked in the level was sent. Troponin peaked at 1.7-1.2. On 10/18/2021, the patient is still having difficulties with breathing. He was on BiPAP throughout the night and the patient is currently on oxygen and he was placed on 4 L about 2 by nasal cannula. He is slightly short of breath and he has a congested cough. Unable to bring up much sputum. Note that I broaden his antibiotic coverage since yesterday and the patient is currently on a combination of cefepime and Zithromax. Despite extensive consolidation of the right lung, the pro calcitonin level is low at 0.06. The patient's white cell count was elevated and currently is down to 18 with a hemoglobin of 12.5 and a platelet count of 294. Electrodes are all within normal limits. A repeat chest x-ray was done today and the chest x-ray showed airspace disease similar in appearance compared to the earlier chest x-ray of 10/16/2021. There is evidence of chronic appearing rib cage deformity in the upper posterior right chest there is also apical thickening. Objective - Vital Signs Vital signs: Vital Signs Temp 98.0 F 10/18/21 07:43 Pulse 72 10/18/21 10:23 Resp 18 10/18/21 10:23 BP 183/81 10/18/21 07:43 Pulse Ox 92 L 10/18/21 08:35 Intake & Output 10/17/21 10/18/21 10/18/21 18:59 06:59 18:59 Intake Total 630 200 480 Output Total 1250 1675 1225 Balance -873 -3435 -745 Intake: IV 30 Invasive Line 2 30 Intake, IV Titration 200 Amount Cefepime 2 gm In Sodium 200 Chloride 0.9% 100 ml @ 25 mls/hr IVPB Q12HR [facility] Rx #:[id number] Oral 600 480 Output: Urine 1250 1675 1225 Other: Voiding Method Urinal # Voids 1 - Exam GENERAL EXAM: Alert, very pleasant 76-year-old gentleman, on BiPAP 12/6 and 60% FiO2, alternating with 4 L about 2 by nasal cannula HEAD: Normocephalic. EYES: Normal reaction of pupils, equal size. NOSE: Clear with pink turbinates. THROAT: No erythema or exudates. NECK: No masses, no JVD. CHEST: No chest wall deformity. LUNGS: Equal air entry with coarse bilateral rhonchi, crackles in the mid and lower lung taylor bilaterally more so on the right and there is diminished b reath sounds along with scattered expiratory wheezes. CVS: S1 and S2 normal with no audible murmur, regular rhythm. ABDOMEN: No hepatosplenomegaly, normal bowel sounds, no guarding or rigidity. SPINE: No scoliosis or deformity SKIN: No rashes CENTRAL NERVOUS SYSTEM: No focal deficits, tone is normal in all 4 extremities. EXTREMITIES: There is no peripheral edema. No clubbing, no cyanosis. Periph eral pulses are intact. - Labs CBC & Chem 7: 10/18/21 07:06 10/18/21 07:06 Labs: Abnormal Lab Results - Last 24 Hours (Table) 10/18/21 10/18/21 Range/Units 07:06 07:06 WBC 18.0 H (3.8-10.6) k/uL RBC 4.00 L (4.30-5.90) m/uL Hgb 12.5 L (13.0-17.5) gm/dL MCV 102.1 H (80.0-100.0) fL MCHC 30.6 L (31.0-37.0) g/dL Neutrophils # 14.7 H (1.3-7.7) k/uL Creatinine 0.61 L (0.66-1.25) mg/dL Glucose 105 H (74-99) mg/dL Calcium 8.3 L (8.4-10.2) mg/dL Albumin 3.0 L (3.5-5.0) g/dL Microbiology - Last 24 Hours (Table) 10/13/21 14:20 Blood Culture - Preliminary Blood No Growth after 96 hours 10/13/21 14:20 Blood Culture - Preliminary Blood No Growth after 96 hours Assessment and Plan Plan: 1 acute hypoxic respiratory failure second to bilateral pneumonia right more than left. This is most likely a bacterial infection. COVID 19 evaluation came back negative and the patient had a negative Legionella urine antigen. The patient remains on broad-spectrum antibiotics. The patient was also supported with BiPAP for respiratory support . The patient is currently between BiPAP and oxygen at 4 L per minute nasal cannula. He continues to have extensive consolidation of the right lung with a chest x-ray findings remain essentially unchanged. The pro calcitonin level was low at 0.03. Currently on a combination of cefepime and Zithromax. 2 acute non-ST segment elevation myocardial infarction, currently on IV heparin 3 acute kidney injury, improving 2 acute atrial fibrillation with rapid ventricular response with a heart rate as high as 130 3 dyspnea secondary to above 4 History of COPD. 5 History of hypertension. 6 History of obstructive sleep apnea syndrome. 7 History of skin cancer. 8 Prior history of pneumonia.the patient's previous cultures from 04/02/2019 was strep pneumonia and pseudomonas aeruginosa. 9 Prior history of tobacco use. 10 leukocytosis, improving Plan: Continue IV cefepime and Zithromax Add vancomycin Repeat chest x-ray in the morning On BiPAP 12/6 and 60% FiO2 on and off during the day and the patient is currently on 4 L by nasal cannula Continued on DuoNeb inhalations Pulmicort and Perforomist IV Solu-Medrol 40 mg every 8 hours hours Anticoagulations with [facility] [employer] of the case regarding the acute non-STEMI Titrate the FiO2 as tolerated Labs were reviewed and there is some improvement in the leukocytosis We'll continue to follow
--- NOTE | 2021-10-18 12:00 | P.PN ---
Subjective Progress Note Date: 10/18/21 HISTORY OF PRESENT ILLNESS: This is a 76-year-old gentleman with a past medical history significant for hypertension and dyslipidemia and sleep apnea and also chronic obstructive pulm onary disease, presented to the emergency department complaining of shortness of breath. We consulted to see the patient for further evaluation of abnormal cardiac enzymes and elevated troponin. The patient states that for the last few days he has not been feeding well. He has been experiencing increasing in the temperature associated with cough productive of sputum. Beside that he was experiencing increasing in the shortness of breath but no symptoms of chest pain or chest discomfort and no dizziness or lightheadedness or any feeling of heart racing or fluttering or presyncope or syncope. In the ER the patient was found to be hypoxic with oxygen saturation of 75% and subsequently he was placed on BiPAP with improvement in his oxygenation. Also he presented to the emergency department he was in atrial fibrillation with RVR and subsequently converted to normal sinus mechanism after he was started on Cardizem IV. Currently he is in sinus rhythm was sinus bradycardia. He still on Cardizem IV. He is also on heparin IV. The patient underwent a workup including EKG as described earlier showing A. fib with diffuse nonspecific ST and T wave abnormalities. No EKG after the patient was converted to normal sinus mechanism. Also the troponin came in to be elevated. The chest x-ray showed findings consistent with a pneumonia. He underwent a computed tomography scan of the chest which showed multiple findings including no pulmonary embolism, bilateral hilar adenopathy, bilateral infiltrate, and also small to moderate pericardial effusion, heart failure. The patient has no history of coronary artery disease or congestive heart failure or any cardiac arrhythmia and never seen any supervisor inspection room in the past. When he was seen and examined he was in bilateral expiratory wheezing with regular heart sounds and states bilateral lower extremities edema 10/15/21 Patient was seen and fully evaluated at the bedside this morning. Patient resting comfortably on BiPAP with FiO2 of 60% oxygen saturation 94%. He reports feeling better this morning. He denies having any chest pain, palpitations, shortness of breath, dizziness/lightheadedness, or any other complaints. Patient remains in normal sinus rhythm at time of assessment. He remains on IV heparin and we will plan to transition to oral anticoagulant once patient has been weaned off of BiPAP. Echocardiogram revealed an EF between 50 and 55% with mild mitral and tricuspid regurgitation, mild aortic valve sclerosis, and moderately enlarged right ventricle with left ventricular hypertrophy. 10/16/21 Patient seen and fully evaluated at the bedside this morning. He has been weaned off BiPAP and was on 10 L O2 via high flow nasal cannula to allow patient to eat breakfast. SpO2 89%. Patient denies any chest pain, palpitations, shortness of breath, or experiencing any dizziness/lightheadedness at this time. Patient had slight conversational dyspnea noted and lungs with diffuse coarse crackles bilaterally. Vital signs reviewed patient continues to have rapid ventricular rate ranging from 90s to 120s and is hypertensive with blood pressure 190/96. Metoprolol increased to 50 mg daily and additional medications including lisinopril 5 mg daily, aspirin 81 mg daily and Lasix 20 mg IVP every 12 hours were also added this morning. Heparin discontinued and patient started on oral anticoagulation with Eliquis 5 mg twice daily. 10/17/21 Patient examined this morning at the bedside. Patient denies chest pain or pressure. He denies any SOB. He remains on Bipap. Telemetry reveals sinus mechanism. He is anticoagulated with Eliquis. Vital signs are stable. 10/18/2021 Patient examined this morning at the bedside. Patient denies chest pain or pressure. He reports sinus congestion. He also reports a cough with occasional sputum production. He remains on IV lasix q12 hours. Creatinine is stable at 0.61. Fluid balance over the last 24 hours is -2 L. PHYSICAL EXAM: VITAL SIGNS: Reviewed. GENERAL: Well-developed in no acute distress. NECK: Supple. No JVD or thyromegaly LUNGS: Respirations even and unlabored. Lungs diminished with scattered rhonchi. HEART: Regular rate and rhythm. S1 and S2 heard. EXTREMITIES: Normal range of motion. No clubbing or cyanosis. Peripheral puls es intact. No lower extremity edema ASSESSMENT: Bilateral pneumonia Acute COPD exacerbation Hypoxemia secondary to the above New onset paroxysmal atrial fibrillation with RVR, currently maintaining sinus mechanism Type II NSTEMI resulting from demand ischemia from RVR Obstructive sleep apnea PLAN: Continue current cardiac medications Continue IV lasix. Dose decreased to daily per pulmonary. Continue to monitor kidney function and accurate I&O Increase lisinopril to 5 mg twice a day for possible blood pressure control Continue anticoagulation with Eliquis Further recommendations pending patient course Nurse practitioner note has been reviewed by physician. Signing provider agrees with the documented findings, assessment, and plan of care. Objective - Vital Signs Vital signs: Vital Signs Temp 98 F 10/18/21 11:31 Pulse 59 L 10/18/21 11:38 Resp 18 10/18/21 11:31 BP 173/91 10/18/21 11:31 Pulse Ox 92 L 10/18/21 11:31 Intake & Output 10/17/21 10/18/21 10/18/21 18:59 06:59 18:59 Intake Total 630 200 480 Output Total 1250 1675 2125 Balance -399 -3391 -4650 Intake: IV 30 Invasive Line 2 30 Intake, IV Titration 200 Amount Cefepime 2 gm In Sodium 200 Chloride 0.9% 100 ml @ 25 mls/hr IVPB Q12HR [facility] Rx #:[id number] Oral 600 480 Output: Urine 1250 1675 2125 Other: Voiding Method Urinal # Voids 2 - Labs CBC & Chem 7: 10/18/21 07:06 10/18/21 07:06 Labs: Abnormal Lab Results - Last 24 Hours (Table) 10/18/21 10/18/21 Range/Units 07:06 07:06 WBC 18.0 H (3.8-10.6) k/uL RBC 4.00 L (4.30-5.90) m/uL Hgb 12.5 L (13.0-17.5) gm/dL MCV 102.1 H (80.0-100.0) fL MCHC 30.6 L (31.0-37.0) g/dL Neutrophils # 14.7 H (1.3-7.7) k/uL Creatinine 0.61 L (0.66-1.25) mg/dL Glucose 105 H (74-99) mg/dL Calcium 8.3 L (8.4-10.2) mg/dL Albumin 3.0 L (3.5-5.0) g/dL Microbiology - Last 24 Hours (Table) 10/13/21 14:20 Blood Culture - Preliminary Blood No Growth after 96 hours 10/13/21 14:20 Blood Culture - Preliminary Blood No Growth after 96 hours
--- NOTE | 2021-10-18 17:06 | P.PN ---
Progress Note - Text Progress Note Date: 10/18/21 Chief Complaint: Short of breath Hospital course This is a pleasant 76-year-old patient of Dr. Sultana. Chronic stable medical conditions include hypertension, obstructive sleep apnea, DJD, obesity. Depression, Patient presented increasing shortness of breath for 1 week, wheezing. Cough fever periods Sputum Production. Decrease Appetite Tired Rundown. Symptoms Became Progressively Worse. Found to Pulse Ox of 75% in the ER. Put on a BiPAP. Antibiotics. Bronchodilators. Admitted with bilateral pneumonia right greater than left, atrial fibrillation rapid ventricular rate, sepsis, COPD exacerbation. Started on IV cefepime, bronchodilators, IV steroids, IV heparin, IV Cardizem drip. Patient requiring BiPAP. Patient was changed over from IV heparin to eliquis. Beta blockers added. October 17: Breathing better. Decreased sputum production. On 12 L high flow nasal cannula. Had about half his breakfast. Not much appetite for lunch. Requested the patient sit up in a chair. Tired. Patient has been in sinus rhythm. October 18: Remains tired, short of breath. 12 L nasal cannula. Eating some. Vancomycin added by pulmonary. Review of systems: Was done for constitutional, cardiovascular, GI, pulmonary. relevant finding as above Active Medications Acetaminophen (Acetaminophen Tab 325 Mg Tab) 650 mg PO Q6HR PRN PRN Reason: Mild Pain or Fever > 100.5 Hydrocodone Bitart/Acetaminophen (Hydrocodone/Apap 10-325mg 1 Each Tab) 1 each PO Q8HR PRN PRN Reason: Pain Hydrocodone Bitart/Acetaminophen (Hydrocodone/Apap 10-325mg 1 Each Tab) 1 each PO Q6H [facility] Last Admin: 10/18/21 11:50 Dose: 1 each Documented by: Albuterol/Ipratropium (Ipratropium-Albuterol 3 Ml Neb) 3 ml INHALATION RT-Q4H PRN PRN Reason: Shortness Of Breath Or Wheezing Last Admin: 10/17/21 11:28 Dose: 3 ml Documented by: Albuterol/Ipratropium (Ipratropium-Albuterol 3 Ml Neb) 3 ml INHALATION RT-QID [facility] Last Admin: 10/18/21 15:28 Dose: 3 ml Documented by: Alprazolam (Alprazolam 0.25 Mg Tab) 0.25 mg PO Q6HR PRN PRN Reason: Anxiety Last Admin: 10/16/21 18:19 Dose: 0.25 mg Documented by: Apixaban (Apixaban 5 Mg Tab) 5 mg PO BID [facility]; Protocol Last Admin: 10/18/21 09:15 Dose: 5 mg Documented by: Aspirin (Aspirin 81 Mg) 81 mg PO DAILY [facility] Last Admin: 10/18/21 09:15 Dose: 81 mg Documented by: Atorvastatin Calcium (Atorvastatin 80 Mg Tab) 80 mg PO HS [facility] Last Admin: 10/17/21 21:04 Dose: 80 mg Documented by: Azithromycin (Azithromycin 500 Mg Tab) 500 mg PO DAILY [facility] Last Admin: 10/18/21 09:16 Dose: 500 mg Documented by: Budesonide (Budesonide 1 Mg/2 Ml Nebu) 1 mg INHALATION RT-BID [facility] Last Admin: 10/18/21 08:34 Dose: 1 mg Documented by: Calcium Carbonate/Glycine (Calcium Carbonate 500 Mg Chewable) 1,000 mg PO Q4HR PRN PRN Reason: Dyspepsia Last Admin: 10/14/21 18:02 Dose: 1,000 mg Documented by: Famotidine (Famotidine 20 Mg Tab) 20 mg PO DAILY [facility] Last Admin: 10/18/21 09:18 Dose: 20 mg Documented by: Formoterol Fumarate (Formoterol Fumarate 20 Mcg/2 Ml Nebu) 20 mcg INHALATION RT-BID [facility] Last Admin: 10/18/21 08:35 Dose: 20 mcg Documented by: Furosemide (Furosemide 10 Mg/Ml 2 Ml Vial) 20 mg IV DAILY [facility] Guaifenesin/Dextromethorphan (Guaifenesin-Dm 100-10mg/5ml 10 Ml Cup) 10 ml PO Q6HR PRN PRN Reason: Cough Sodium Chloride (Saline 0.9%) 1,000 mls @ 50 mls/hr IV .Q20H [facility] Last Admin: 10/18/21 08:00 Dose: 50 mls/hr Documented by: Cefepime HCl 2 gm/ Sodium (Chloride) 100 mls @ 25 mls/hr IVPB Q12HR [facility] Last Admin: 10/18/21 09:16 Dose: 25 mls/hr Documented by: Vancomycin HCl 2,000 mg/ (Sodium Chloride) 500 mls @ 167 mls/hr IVPB Q8H [facility] Lactulose (Lactulose 20 Gm/30 Ml Cup) 20 gm PO DAILY PRN PRN Reason: Constipation Lisinopril (Lisinopril 5 Mg Tab) 5 mg PO BID [facility] Lorazepam (Lorazepam 2 Mg/Ml Inj) 0.5 mg IV Q8HR PRN PRN Reason: Anxiety Last Admin: 10/15/21 09:14 Dose: 0.5 mg Documented by: Melatonin (Melatonin 3 Mg Tablet) 3 mg PO HS PRN PRN Reason: Insomnia Methylprednisolone Sodium Succinate (Methylprednisolone Sod Succi 40 Mg/Ml 1 Ml Vial) 40 mg IV Q8HR [facility] Last Admin: 10/18/21 09:14 Dose: 40 mg Documented by: Metoprolol Tartrate (Metoprolol Tartrate 50 Mg Tab) 50 mg PO TID [facility] Last Admin: 10/18/21 09:23 Dose: 50 mg Documented by: Morphine Sulfate (Morphine Sulfate Er 15 Mg Tablet) 15 mg PO BID@0600,1600 [facility]; Protocol Last Admin: 10/18/21 05:48 Dose: 15 mg Documented by: Naloxone HCl (Naloxone 0.4 Mg/Ml 1 Ml Vial) 0.2 mg IV Q2M PRN PRN Reason: Opioid Reversal Ondansetron HCl (Ondansetron 4 Mg/2 Ml Vial) 4 mg IVP Q8HR PRN PRN Reason: Nausea And Vomiting Pramipexole Dihydrochloride (Pramipexole 1 Mg Tab) 1 mg PO BID@0600,1600 [facility] Last Admin: 10/18/21 06:03 Dose: 1 mg Documented by: Sertraline HCl (Sertraline 100 Mg Tab) 100 mg PO DAILY@1600 [facility] Last Admin: 10/17/21 16:44 Dose: 100 mg Documented by: Past medical history to include: COPD, hypertension, obstructive sleep apnea, DJD, skin cancer Social history: . Smoked for 30 years stopped in 1979. Family history: Reviewed, noncontributory to presentation Physical examination: VITAL SIGNS: 98, 92, 22, 173/791, 92% on 12 L GENERAL:, reclining bed, awake, tired EYES: Pupils equal. Conjunctiva normal. HEENT: External appearance of nose and ears normal, oral cavity grossly normal. NECK: JVD unable to assess; masses not palpable. HEART: First and second heart sounds are normal; no edema. LUNGS: Respiratory rate increased decreased breath sounds, ABDOMEN: Soft, nontender, liver spleen not palpable, no masses palpable. PSYCH: Alert and oriented x3; mood and affect tired MUSCULOSKELETAL:No Clubbing/cyanosis;muscles-grossly intact INVESTIGATIONS, reviewed in the clinical context: October 18: White count 18 hemoglobin 12.5 potassium 4.3 creatinine 0.61 October 17: White count 24.6 hemoglobin 11.9 platelets 277 sodium 141 potassium 4.2 creatinine 0.67. Pro-calcitonin 0.06 Chest x-ray film personally reviewed by me-[October 16] significant right-sided infiltrates White count 25.6 hemoglobin 15.9 platelets 324 increased neutrophils d-dimer 7.48 sodium 138 potassium 4.2. 38 creatinine 1.53 lactic acid 3.8 Troponin I 2.0, 1.7, 1.2 Coronavirus [PCR]: Not detected EKG tracing personally reviewed by me-atrial fibrillation ST-T wave changes, rate 138 Chest angiogram chest: Moderate emphysema. Extensive patchy and confluent consolidation throughout the right lung. Some of the left side 2. Hilar lymphadenopathy. Chest x-ray film personally reviewed by me-extensive infiltrate on the right mid zone and some on the left side Assessment and plan: -Severe pneumonia predominantly right-sided gram-negative organism: Slow to respond Cefepime 2 g every 12 hour -Severe sepsis from pneumonia: Better IV fluids. Antibiotics. -Paroxysmal Atrial fibrillation rapid ventricular rate on presentation. Currently in sinus rhythm Beta valente. [Received: IV heparin. IV Cardizem drip] Eliquis, Lopressor 50 mg 3 times a day IV heparin monitoring: Discontinued Follow PTT -Acute COPD exacerbation in a prior smoker: Slow to respond DuoNeb. IV Solu-Medrol -Acute severe hypoxic respiratory failure from pneumonia: Slow to respond Intermittent BiPAP. 12 L high flow nasal cannula -Essential hypertension Zestril 10 mg daily Toprol-XL 25 mg daily -Restless leg syndrome Mirapex 1 mg twice a day -Depression Zoloft 100 mg daily Primary osteoarthritis multiple joints bilaterally Zaleski 10 every 6 IV cefepime. IV Solu-Medrol. Bronchodilators. Lopressor. 12 L nasal cannula. Continue current treatment plan. Encouraged to be up in a chair. Vancomycin added by pulmonary. We will check nasal mucosa for MRSA
[2021-10-18] MEDS: SERTRALINE 100 MG TAB PO SCH (18:25)
[2021-10-18] MEDS: VANCOMYCIN 2,000 MG in SODIUM CHLORIDE 0.9% 500 ML 500 ML IVPB SCH (21:40)
[2021-10-18] MEDS: ATORVASTATIN 80 MG TAB PO SCH (21:40)
[2021-10-19] MEDS: SODIUM CHLORIDE 0.9% 1,000 ML IV SCH ×2 (04:11→21:31)
[2021-10-19] MEDS: VANCOMYCIN 2,000 MG in SODIUM CHLORIDE 0.9% 500 ML 500 ML IVPB SCH ×2 (04:18→12:43)
[2021-10-19] MEDS: PRAMIPEXOLE 1 MG TAB PO SCH ×2 (06:15→16:31)
[2021-10-19] MEDS: HYDROcodone/APAP 10-325MG 1 EACH TAB PO SCH ×4 (06:15→23:11)
[2021-10-19] MEDS: MORPHINE SULFATE ER 15 MG TABLET PO SCH ×2 (06:15→16:30)
[2021-10-19 07:59] LABS: African American GFR (CKD) >90 (>60 ml/min/1.73 sqM); Anion Gap 5 mmol/L; Blood Urea Nitrogen 20 mg/dL (9-20); Calcium 8.2 mg/dL (8.4-10.2); Carbon Dioxide 26 mmol/L (22-30); Chloride 106 mmol/L (98-107); Glucose 102 mg/dL (74-99); Non-African American GFR(CKD) >90 (>60 ml/min/1.73 sqM); Potassium 4.5 mmol/L (3.5-5.1); Sodium 137 mmol/L (137-145)
[2021-10-19] MEDS: FORMOTEROL FUMARATE 20 MCG/2 ML NEBU INHALATION SCH ×2 (08:56→20:03)
[2021-10-19] MEDS: BUDESONIDE 1 MG/2 ML NEBU INHALATION SCH ×2 (08:56→20:03)
[2021-10-19] MEDS: IPRATROPIUM-ALBUTEROL 3 ML NEB INHALATION SCH ×4 (08:56→20:03)
[2021-10-19] MEDS ORDERED: FUROSEMIDE 10 MG/ML 2 ML VIAL IV SCH (09:00)
[2021-10-19] MEDS: APIXABAN 5 MG TAB PO SCH ×2 (09:09→21:30)
[2021-10-19] MEDS: METOPROLOL TARTRATE 50 MG TAB PO SCH ×3 (09:09→21:30)
[2021-10-19] MEDS: methylPREDNISolone SOD SUCCI 40 MG/ML 1 ML VIAL IV SCH ×3 (09:09→23:10)
[2021-10-19] MEDS: FAMOTIDINE 20 MG TAB PO SCH (09:09)
[2021-10-19] MEDS: AZITHROMYCIN 500 MG TAB PO SCH (09:09)
[2021-10-19] MEDS: lisinopriL 5 MG TAB PO SCH ×2 (09:10→21:30)
[2021-10-19] MEDS: CEFEPIME 2 GM in SODIUM CHLORIDE 0.9% 100 ML IVPB SCH ×2 (09:10→21:30)
[2021-10-19] MEDS: ASPIRIN 81 MG PO SCH (09:10)
[2021-10-19] MEDS: DILTIAZEM ORAL 30 MG TAB PO SCH ×3 (10:47→21:30)
--- NOTE | 2021-10-19 11:59 | P.PN ---
Subjective Progress Note Date: 10/19/21 HISTORY OF PRESENT ILLNESS: This is a 76-year-old gentleman with a past medical history significant for hypertension and dyslipidemia and sleep apnea and also chronic obstructive pulm onary disease, presented to the emergency department complaining of shortness of breath. We consulted to see the patient for further evaluation of abnormal cardiac enzymes and elevated troponin. The patient states that for the last few days he has not been feeding well. He has been experiencing increasing in the temperature associated with cough productive of sputum. Beside that he was experiencing increasing in the shortness of breath but no symptoms of chest pain or chest discomfort and no dizziness or lightheadedness or any feeling of heart racing or fluttering or presyncope or syncope. In the ER the patient was found to be hypoxic with oxygen saturation of 75% and subsequently he was placed on BiPAP with improvement in his oxygenation. Also he presented to the emergency department he was in atrial fibrillation with RVR and subsequently converted to normal sinus mechanism after he was started on Cardizem IV. Currently he is in sinus rhythm was sinus bradycardia. He still on Cardizem IV. He is also on heparin IV. The patient underwent a workup including EKG as described earlier showing A. fib with diffuse nonspecific ST and T wave abnormalities. No EKG after the patient was converted to normal sinus mechanism. Also the troponin came in to be elevated. The chest x-ray showed findings consistent with a pneumonia. He underwent a computed tomography scan of the chest which showed multiple findings including no pulmonary embolism, bilateral hilar adenopathy, bilateral infiltrate, and also small to moderate pericardial effusion, heart failure. The patient has no history of coronary artery disease or congestive heart failure or any cardiac arrhythmia and never seen any lab associate in the past. When he was seen and examined he was in bilateral expiratory wheezing with regular heart sounds and states bilateral lower extremities edema 10/15/21 Patient was seen and fully evaluated at the bedside this morning. Patient resting comfortably on BiPAP with FiO2 of 60% oxygen saturation 94%. He reports feeling better this morning. He denies having any chest pain, palpitations, shortness of breath, dizziness/lightheadedness, or any other complaints. Patient remains in normal sinus rhythm at time of assessment. He remains on IV heparin and we will plan to transition to oral anticoagulant once patient has been weaned off of BiPAP. Echocardiogram revealed an EF between 50 and 55% with mild mitral and tricuspid regurgitation, mild aortic valve sclerosis, and moderately enlarged right ventricle with left ventricular hypertrophy. 10/16/21 Patient seen and fully evaluated at the bedside this morning. He has been weaned off BiPAP and was on 10 L O2 via high flow nasal cannula to allow patient to eat breakfast. SpO2 89%. Patient denies any chest pain, palpitations, shortness of breath, or experiencing any dizziness/lightheadedness at this time. Patient had slight conversational dyspnea noted and lungs with diffuse coarse crackles bilaterally. Vital signs reviewed patient continues to have rapid ventricular rate ranging from 90s to 120s and is hypertensive with blood pressure 190/96. Metoprolol increased to 50 mg daily and additional medications including lisinopril 5 mg daily, aspirin 81 mg daily and Lasix 20 mg IVP every 12 hours were also added this morning. Heparin discontinued and patient started on oral anticoagulation with Eliquis 5 mg twice daily. 10/17/21 Patient examined this morning at the bedside. Patient denies chest pain or pressure. He denies any SOB. He remains on Bipap. Telemetry reveals sinus mechanism. He is anticoagulated with Eliquis. Vital signs are stable. 10/18/2021 Patient examined this morning at the bedside. Patient denies chest pain or pressure. He reports sinus congestion. He also reports a cough with occasional sputum production. He remains on IV lasix q12 hours. Creatinine is stable at 0.61. Fluid balance over the last 24 hours is -2 L. 10/19/2021 Patient examined this morning at the bedside. Patient denies chest pain or pressure. He reports his breathing feels about the same as yesterday. He remains on IV Lasix 20 mg daily. Patient's blood pressure stable with a reading of 138/98; improved with adjustment of lisinopril yesterday. Patient is back in atrial fibrillation this morning with a heart rate around 120. He is currently receiving metoprolol 50 mg 3 times a day. PHYSICAL EXAM: VITAL SIGNS: Reviewed. GENERAL: Well-developed in no acute distress. NECK: Supple. No JVD or thyromegaly LUNGS: Respirations even and unlabored. Lungs diminished with scattered rhonchi. HEART: Tachycardic. Irregular rate and rhythm. S1 and S2 heard. EXTREMITIES: Normal range of motion. No clubbing or cyanosis. Peripheral pulses intact. Trace bilateral lower extremity edema ASSESSMENT: Bilateral pneumonia Acute COPD exacerbation Hypoxemia secondary to the above New onset paroxysmal atrial fibrillation with RVR Type II NSTEMI resulting from demand ischemia from RVR Obstructive sleep apnea PLAN: Continue current cardiac medications Discontinue IV Lasix. Begin oral Lasix 20 mg daily Continue to monitor kidney function and accurate I&O Continue current dose of metoprolol Add Cardizem 30 mg 3 times a day Continue telemetry monitoring Continue anticoagulation with Eliquis Further recommendations pending patient course Nurse practitioner note has been reviewed by physician. Signing provider agrees with the documented findings, assessment, and plan of care. Objective - Vital Signs Vital signs: Vital Signs Temp 97.8 F 10/19/21 09:12 Pulse 164 H 10/19/21 09:24 Resp 17 10/19/21 09:12 BP 138/91 10/19/21 09:12 Pulse Ox 91 L 10/19/21 09:12 Intake & Output 10/18/21 10/19/21 10/19/21 18:59 06:59 18:59 Intake Total 980 1080 500 Output Total 2125 850 1700 Balance -1145 230 -1200 Intake: IV 40 Invasive Line 3 20 Invasive Line 4 20 Intake, IV Titration 600 500 Amount Cefepime 2 gm In Sodium 100 Chloride 0.9% 100 ml @ 25 mls/hr IVPB Q12HR [facility] Rx #:[id number] Vancomycin 2,000 mg In 500 500 Sodium Chloride 0.9% 500 ml 500 ml @ 167 mls/hr IVPB Q8H [facility] Rx#: [id number] Oral 940 480 Output: Urine 2125 850 1700 Other: Voiding Method Urinal Urinal # Voids 2 # Bowel Movements 0 - Labs CBC & Chem 7: 10/18/21 07:06 10/19/21 06:51 Labs: Abnormal Lab Results - Last 24 Hours (Table) 10/19/21 Range/Units 06:51 Creatinine 0.50 L (0.66-1.25) mg/dL Glucose 102 H (74-99) mg/dL Calcium 8.2 L (8.4-10.2) mg/dL Microbiology - Last 24 Hours (Table) 10/13/21 14:20 Blood Culture - Preliminary Blood No Growth after 120 hours 10/13/21 14:20 Blood Culture - Preliminary Blood No Growth after 120 hours
[2021-10-19] MEDS: AMIODARONE 200 MG TAB PO SCH ×2 (13:08→21:29)
--- NOTE | 2021-10-19 14:19 | P.PN ---
Subjective Progress Note Date: 10/19/21 76-year-old male with a history of COPD, who presents to the emergency department on October 13, complaining of shortness of breath. On today's evaluation of 10/17/2021, the patient is being seen for a follow-up. Is a 76-year-old male patient with known history of COPD with previous bouts of pneumonias. The patient came into the hospital because of another bout of bilateral pneumonia with extensive consolidation of the right lung and some ongoing consolidation of the left lung base. The patient was quite hypoxic, supported with BiPAP, supported with IV antibiotics. The patient was also found to be in atrial fibrillation and rapid ventricular response and the patient was started on IV heparin and Cardizem drip for rate control. Noted the patient's COVID 19 testing was negative and the patient tested negative for COVID 19 infection.. Note that the patient also had a CAT scan of the chest that showed mediastinal bilateral hilar lymphadenopathy measuring up to 5.2 cm in size. This morning, the patient is still coughing. He was taken off the BiPAP and he is on 9 L about 2 by nasal cannula. He remains on DuoNeb nebulized treatment [id number]. Antibiotic coverage is with a combination of Rocephin and Zithromax. Chest x-ray from yesterday showed bilateral patchy airspace disease right more than left. The white cell count remains elevated at 24.6 with a hemoglobin of 11.9. Platelets of 277. The patient's PTT is therapeutic at 68. Electrodes are normal. No function is normal. Legionella urine antigen has been negative. The pro calcitonin level has not been checked in the level was sent. Troponin peaked at 1.7-1.2. On 10/18/2021, the patient is still having difficulties with breathing. He was on BiPAP throughout the night and the patient is currently on oxygen and he was placed on 4 L about 2 by nasal cannula. He is slightly short of breath and he has a congested cough. Unable to bring up much sputum. Note that I broaden his antibiotic coverage since yesterday and the patient is currently on a combination of cefepime and Zithromax. Despite extensive consolidation of the right lung, the pro calcitonin level is low at 0.06. The patient's white cell count was elevated and currently is down to 18 with a hemoglobin of 12.5 and a platelet count of 294. Electrodes are all within normal limits. A repeat chest x-ray was done today and the chest x-ray showed airspace disease similar in appearance compared to the earlier chest x-ray of 10/16/2021. There is evidence of chronic appearing rib cage deformity in the upper posterior right chest there is also apical thickening. 10/19/2021, the patient is feeling well. Cough is less congested. The patient is covered with triple antibiotics and the patient is currently on a combination of vancomycin, cefepime and Zithromax. No fever. No chills. He remains on oxygen and the patient is currently on 12-14 L high flow oxygen. The CBC still pending for now. Note that his white cell count was improving as of yesterday and was down to 18. Clinically the patient is feeling better. The BUN is at 20 with a creatinine of 0.5, sodium level is at 137. As of the electrodes are normal. Breathing is nonlabored. He has no significant sputum production. No hemoptysis or pleurisy. No altered mentation. He is weak. Note that his earlier pro calcitonin level came back at 0.06. Objective - Vital Signs Vital signs: Vital Signs Temp 98.4 F 10/19/21 12:21 Pulse 100 10/19/21 12:35 Resp 18 10/19/21 12:21 BP 134/79 10/19/21 12:21 Pulse Ox 93 L 10/19/21 12:21 Intake & Output 10/18/21 10/19/21 10/19/21 18:59 06:59 18:59 Intake Total 980 1080 500 Output Total 2125 850 1700 Balance -1145 230 -1200 Intake: IV 40 Invasive Line 3 20 Invasive Line 4 20 Intake, IV Titration 600 500 Amount Cefepime 2 gm In Sodium 100 Chloride 0.9% 100 ml @ 25 mls/hr IVPB Q12HR [facility] Rx #:[id number] Vancomycin 2,000 mg In 500 500 Sodium Chloride 0.9% 500 ml 500 ml @ 167 mls/hr IVPB Q8H [facility] Rx#: [id number] Oral 940 480 Output: Urine 2125 850 1700 Other: Voiding Method Urinal Urinal # Voids 2 # Bowel Movements 0 - Exam GENERAL EXAM: Alert, very pleasant 76-year-old gentleman, on BiPAP 12/6 and 60% FiO2, alternating with 14 L 02 by nasal cannula HEAD: Normocephalic. EYES: Normal reaction of pupils, equal size. NOSE: Clear with pink turbinates. THROAT: No erythema or exudates. NECK: No masses, no JVD. CHEST: No chest wall deformity. LUNGS: Equal air entry with coarse bilateral rhonchi, crackles in the mid and lower lung taylor bilaterally more so on the right and there is diminished breath sounds along with scattered expiratory wheezes. CVS: S1 and S2 normal with no audible murmur, regular rhythm. ABDOMEN: No hepatosplenomegaly, normal bowel sounds, no guarding or rigidity. SPINE: No scoliosis or deformity SKIN: No rashes CENTRAL NERVOUS SYSTEM: No focal deficits, tone is normal in all 4 extremities. EXTREMITIES: There is no peripheral edema. No clubbing, no cyanosis. Peripheral pulses are intact. - Labs CBC & Chem 7: 10/18/21 07:06 10/19/21 06:51 Labs: Abnormal Lab Results - Last 24 Hours (Table) 10/19/21 Range/Units 06:51 Creatinine 0.50 L (0.66-1.25) mg/dL Glucose 102 H (74-99) mg/dL Calcium 8.2 L (8.4-10.2) mg/dL Microbiology - Last 24 Hours (Table) 10/18/21 23:30 Nasal Screen MRSA/MSSA - Preliminary Nasal Swab 10/13/21 14:20 Blood Culture - Preliminary Blood No Growth after 120 hours 10/13/21 14:20 Blood Culture - Preliminary Blood No Growth after 120 hours Assessment and Plan Plan: 1 acute hypoxic respiratory failure second to bilateral pneumonia right more than left. This is most likely a bacterial infection. COVID 19 evaluation came back negative and the patient had a negative Legionella urine antigen. The patient remains on broad-spectrum antibiotics. The patient was also supported with BiPAP for respiratory support . The patient is oxygen at 14 L per minute nasal cannula. He continues to have extensive consolidation of the right lung with a chest x-ray findings remain essentially unchanged. The pro calcitonin level was low at 0.03. Currently on a combination of cefepime and Zithromax and the patient is also on vancomycin. 2 acute non-ST segment elevation myocardial infarction, currently off IV heparin and the patient was started on long-term and to coagulation with Eliquis 5 mg by mouth twice a day. 3 acute kidney injury, improving 2 acute atrial fibrillation with rapid ventricular response , rate is controlled and the patient is on amiodarone 400 mg by mouth twice a day, metoprolol 50 mg by mouth 3 times a day and the patient is on long-term and coagulation with Saloni aura. 3 dyspnea secondary to above 4 History of COPD. 5 History of hypertension. 6 History of obstructive sleep apnea syndrome. 7 History of skin cancer. 8 Prior history of pneumonia.the patient's previous cultures from 04/02/2019 was strep pneumonia and pseudomonas aeruginosa. 9 Prior history of tobacco use. 10 leukocytosis, improving Plan: Continue IV cefepime and Zithromax and vancomycin Wean down the FiO2 as tolerated currently on 14 L O2 nasal cannula Continued on DuoNeb inhalations Pulmicort and Perforomist IV Solu-Medrol Anticoagulations with Dilma Plodder Operator of the case regarding the acute non-STEMI Repeat chest x-ray in a.m. Titrate the FiO2 as tolerated Repeat CBC and white cell count tomorrow We'll continue to follow
[2021-10-19] MEDS: SERTRALINE 100 MG TAB PO SCH (16:31)
[2021-10-19] MEDS ORDERED: VANCOMYCIN TROUGH DUE 1 EACH MISC MISCELLANE ONE (19:00)
[2021-10-19] MEDS ORDERED: VANCOMYCIN IV PER PHARMACY 1 EACH MISC MISCELLANE PRN (19:20)
[2021-10-19 19:55] LABS: Glucose,Whole Blood 139 mg/dL (75-99)
--- NOTE | 2021-10-19 20:40 | P.PN ---
Progress Note - Text Progress Note Date: 10/19/21 Chief Complaint: Short of breath Hospital course This is a pleasant 76-year-old patient of Dr. Sultana. Chronic stable medical conditions include hypertension, obstructive sleep apnea, DJD, obesity. Depression, Patient presented increasing shortness of breath for 1 week, wheezing. Cough fever periods Sputum Production. Decrease Appetite Tired Rundown. Symptoms Became Progressively Worse. Found to Pulse Ox of 75% in the ER. Put on a BiPAP. Antibiotics. Bronchodilators. Admitted with bilateral pneumonia right greater than left, atrial fibrillation rapid ventricular rate, sepsis, COPD exacerbation. Started on IV cefepime, bronchodilators, IV steroids, IV heparin, IV Cardizem drip. Patient requiring BiPAP. Patient was changed over from IV heparin to eliquis. Beta blockers added. October 17: Breathing better. Decreased sputum production. On 12 L high flow nasal cannula. Had about half his breakfast. Not much appetite for lunch. Requested the patient sit up in a chair. Tired. Patient has been in sinus rhythm. October 18: Remains tired, short of breath. 12 L nasal cannula. Eating some. Vancomycin added by pulmonary. October 19: Tired. Short of breath. Remains on high flow nasal cannula. Intermittent BiPAP. Oral intake very well. Cough. I did today atrial fibrillation with rapid ventricular rate. Lopressor increased to 50 mg 3 times a day by cardiology. Review of systems: Was done for constitutional, cardiovascular, GI, pulmonary. relevant finding as above Active Medications Acetaminophen (Acetaminophen Tab 325 Mg Tab) 650 mg PO Q6HR PRN PRN Reason: Mild Pain or Fever > 100.5 Hydrocodone Bitart/Acetaminophen (Hydrocodone/Apap 10-325mg 1 Each Tab) 1 each PO Q8HR PRN PRN Reason: Pain Hydrocodone Bitart/Acetaminophen (Hydrocodone/Apap 10-325mg 1 Each Tab) 1 each PO Q6H [facility] Last Admin: 10/19/21 16:34 Dose: Not Given Documented by: Albuterol/Ipratropium (Ipratropium-Albuterol 3 Ml Neb) 3 ml INHALATION RT-Q4H PRN PRN Reason: Shortness Of Breath Or Wheezing Last Admin: 10/17/21 11:28 Dose: 3 ml Documented by: Albuterol/Ipratropium (Ipratropium-Albuterol 3 Ml Neb) 3 ml INHALATION RT-QID [facility] Last Admin: 10/19/21 20:03 Dose: 3 ml Documented by: Alprazolam (Alprazolam 0.25 Mg Tab) 0.25 mg PO Q6HR PRN PRN Reason: Anxiety Last Admin: 10/16/21 18:19 Dose: 0.25 mg Documented by: Amiodarone HCl (Amiodarone 200 Mg Tab) 400 mg PO BID [facility] Last Admin: 10/19/21 13:08 Dose: 400 mg Documented by: Apixaban (Apixaban 5 Mg Tab) 5 mg PO BID [facility]; Protocol Last Admin: 10/19/21 09:09 Dose: 5 mg Documented by: Aspirin (Aspirin 81 Mg) 81 mg PO DAILY [facility] Last Admin: 10/19/21 09:10 Dose: 81 mg Documented by: Atorvastatin Calcium (Atorvastatin 80 Mg Tab) 80 mg PO HS [facility] Last Admin: 10/18/21 21:40 Dose: 80 mg Documented by: Azithromycin (Azithromycin 500 Mg Tab) 500 mg PO DAILY [facility] Last Admin: 10/19/21 09:09 Dose: 500 mg Documented by: Budesonide (Budesonide 1 Mg/2 Ml Nebu) 1 mg INHALATION RT-BID [facility] Last Admin: 10/19/21 20:03 Dose: 1 mg Documented by: Calcium Carbonate/Glycine (Calcium Carbonate 500 Mg Chewable) 1,000 mg PO Q4HR PRN PRN Reason: Dyspepsia Last Admin: 10/14/21 18:02 Dose: 1,000 mg Documented by: Diltiazem HCl (Diltiazem Oral 30 Mg Tab) 30 mg PO TID [facility] Last Admin: 10/19/21 16:33 Dose: 30 mg Documented by: Famotidine (Famotidine 20 Mg Tab) 20 mg PO DAILY [facility] Last Admin: 10/19/21 09:09 Dose: 20 mg Documented by: Formoterol Fumarate (Formoterol Fumarate 20 Mcg/2 Ml Nebu) 20 mcg INHALATION RT-BID [facility] Last Admin: 10/19/21 20:03 Dose: 20 mcg Documented by: Furosemide (Furosemide 20 Mg Tab) 20 mg PO DAILY [facility] Guaifenesin/Dextromethorphan (Guaifenesin-Dm 100-10mg/5ml 10 Ml Cup) 10 ml PO Q6HR PRN PRN Reason: Cough Sodium Chloride (Saline 0.9%) 1,000 mls @ 50 mls/hr IV .Q20H [facility] Last Admin: 10/19/21 04:11 Dose: Not Given Documented by: Cefepime HCl 2 gm/ Sodium (Chloride) 100 mls @ 25 mls/hr IVPB Q12HR [facility] Last Admin: 10/19/21 09:10 Dose: 25 mls/hr Documented by: Insulin Aspart (Insulin Aspart (Novolog) 100 Unit/Ml Vial) 0 unit SQ ACHS [facility]; Protocol Lactulose (Lactulose 20 Gm/30 Ml Cup) 20 gm PO DAILY PRN PRN Reason: Constipation Lisinopril (Lisinopril 5 Mg Tab) 5 mg PO BID [facility] Last Admin: 10/19/21 09:10 Dose: 5 mg Documented by: Lorazepam (Lorazepam 2 Mg/Ml Inj) 0.5 mg IV Q8HR PRN PRN Reason: Anxiety Last Admin: 10/15/21 09:14 Dose: 0.5 mg Documented by: Melatonin (Melatonin 3 Mg Tablet) 3 mg PO HS PRN PRN Reason: Insomnia Methylprednisolone Sodium Succinate (Methylprednisolone Sod Succi 40 Mg/Ml 1 Ml Vial) 40 mg IV Q8HR [facility] Last Admin: 10/19/21 16:31 Dose: 40 mg Documented by: Metoprolol Tartrate (Metoprolol Tartrate 50 Mg Tab) 50 mg PO TID [facility] Last Admin: 10/19/21 16:31 Dose: 50 mg Documented by: Miscellaneous Information (Vancom[place] Iv Per [place] 1 Each [facility] [place] 0 each MISCELLANE DIRECTED PRN PRN Reason: PHARMACY DOSING VANCO Morphine Sulfate (Morphine Sulfate Er 15 Mg Tablet) 15 mg PO BID@0600,1600 [facility]; Protocol Last Admin: 10/19/21 16:30 Dose: 15 mg Documented by: Naloxone HCl (Naloxone 0.4 Mg/Ml 1 Ml Vial) 0.2 mg IV Q2M PRN PRN Reason: Opioid Reversal Ondansetron HCl (Ondansetron 4 Mg/2 Ml Vial) 4 mg IVP Q8HR PRN PRN Reason: Nausea And Vomiting Pramipexole Dihydrochloride (Pramipexole 1 Mg Tab) 1 mg PO BID@0600,1600 [facility] Last Admin: 10/19/21 16:31 Dose: 1 mg Documented by: Sertraline HCl (Sertraline 100 Mg Tab) 100 mg PO DAILY@1600 [facility] Last Admin: 10/19/21 16:31 Dose: 100 mg Documented by: Past medical history to include: COPD, hypertension, obstructive sleep apnea, DJD, skin cancer Social history: . Smoked for 30 years stopped in 1979. Family history: Reviewed, noncontributory to presentation Physical examination: VITAL SIGNS: 98, 73, 20, 130/66, 92% on 14 L GENERAL:, reclining bed, awake, tired EYES: Pupils equal. Conjunctiva normal. HEENT: External appearance of nose and ears normal, oral cavity grossly normal. NECK: JVD unable to assess; masses not palpable. HEART: First and second heart sounds are normal; no edema. LUNGS: Respiratory rate increased decreased breath sounds, ABDOMEN: Soft, nontender, liver spleen not palpable, no masses palpable. PSYCH: Alert and oriented x3; mood and affect tired MUSCULOSKELETAL:No Clubbing/cyanosis;muscles-grossly intact INVESTIGATIONS, reviewed in the clinical context: October 19: Potassium 4.5 crit 0.5 October 18: White count 18 hemoglobin 12.5 potassium 4.3 creatinine 0.61 October 17: White count 24.6 hemoglobin 11.9 platelets 277 sodium 141 potassium 4.2 creatinine 0.67. Pro-calcitonin 0.06 Chest x-ray film personally reviewed by me-[October 16] significant right-sided infiltrates White count 25.6 hemoglobin 15.9 platelets 324 increased neutrophils d-dimer 7.48 sodium 138 potassium 4.2. 38 creatinine 1.53 lactic acid 3.8 Troponin I 2.0, 1.7, 1.2 Coronavirus [PCR]: Not detected EKG tracing personally reviewed by me-atrial fibrillation ST-T wave changes, rate 138 Chest angiogram chest: Moderate emphysema. Extensive patchy and confluent consolidation throughout the right lung. Some of the left side 2. Hilar lymphadenopathy. Chest x-ray film personally reviewed by me-extensive infiltrate on the right mid zone and some on the left side Assessment and plan: -Severe pneumonia predominantly right-sided gram-negative organism: Slow to respond Cefepime 2 g every 12 hour. IV vancomycin admitted -Severe sepsis from pneumonia: Better IV fluids. Antibiotics. -Paroxysmal Atrial fibrillation rapid ventricular rate on presentation. Today episode of rapid ventricular rate. Beta valente. [Received: IV heparin. IV Cardizem drip] Eliquis, Lopressor 50 mg 3 times a day IV heparin monitoring: Discontinued Follow PTT -Acute COPD exacerbation in a prior smoker: Slow to respond DuoNeb. IV Solu-Medrol -Acute severe hypoxic respiratory failure from pneumonia: Slow to respond Intermittent BiPAP. 12-14 L high flow nasal cannula -Essential hypertension Zestril 10 mg daily Toprol-XL 25 mg daily -Restless leg syndrome Mirapex 1 mg twice a day -Depression Zoloft 100 mg daily Primary osteoarthritis multiple joints bilaterally [place] 10 every 6 IV cefepime. IV vancomycin. IV Solu-Medrol. Bronchodilators. Lopressor increased. 12 L nasal cannula. Continue current treatment plan. Nasal screen for MRSA pending
[2021-10-19] MEDS: ATORVASTATIN 80 MG TAB PO SCH (21:30)
[2021-10-19] MEDS: ALPRAZolam 0.25 MG TAB PO PRN (21:30)
[2021-10-19] MEDS: INSULIN ASPART (NovoLOG) 100 UNIT/ML VIAL SQ SCH (21:31)
[2021-10-20 06:04] LABS: Glucose,Whole Blood 129 mg/dL (75-99)
[2021-10-20] MEDS: MORPHINE SULFATE ER 15 MG TABLET PO SCH ×2 (06:32→15:53)
[2021-10-20] MEDS: INSULIN ASPART (NovoLOG) 100 UNIT/ML VIAL SQ SCH ×4 (06:32→20:06)
[2021-10-20] MEDS: PRAMIPEXOLE 1 MG TAB PO SCH ×2 (06:37→16:02)
[2021-10-20] MEDS: HYDROcodone/APAP 10-325MG 1 EACH TAB PO SCH ×4 (06:37→23:15)
[2021-10-20] MEDS: BUDESONIDE 1 MG/2 ML NEBU INHALATION SCH ×2 (07:34→20:28)
[2021-10-20] MEDS: FORMOTEROL FUMARATE 20 MCG/2 ML NEBU INHALATION SCH ×2 (07:34→20:28)
[2021-10-20] MEDS: IPRATROPIUM-ALBUTEROL 3 ML NEB INHALATION SCH ×4 (07:34→20:28)
--- NOTE | 2021-10-20 08:35 | XR ---
EXAMINATION TYPE: XR chest 1V DATE OF EXAM: 10/20/2021 COMPARISON: Chest x-ray 10/18/2021 HISTORY: Pneumonia follow-up TECHNIQUE: Single frontal view of the chest is obtained. FINDINGS: Airspace disease shows a similar appearance within the lungs. No evident pneumothorax or p leural effusion. Cardiomediastinal silhouette is stable. There are overlying artifacts. IMPRESSION: Findings consistent with patient's history of pneumonia
[2021-10-20] MEDS: CEFEPIME 2 GM in SODIUM CHLORIDE 0.9% 100 ML IVPB SCH ×2 (08:37→20:03)
[2021-10-20] MEDS: methylPREDNISolone SOD SUCCI 40 MG/ML 1 ML VIAL IV SCH ×3 (08:37→23:15)
[2021-10-20] MEDS: AZITHROMYCIN 500 MG TAB PO SCH (08:37)
[2021-10-20] MEDS: FAMOTIDINE 20 MG TAB PO SCH (08:37)
[2021-10-20] MEDS: lisinopriL 5 MG TAB PO SCH ×2 (08:38→20:05)
[2021-10-20] MEDS: METOPROLOL TARTRATE 50 MG TAB PO SCH ×3 (08:38→20:05)
[2021-10-20] MEDS: ASPIRIN 81 MG PO SCH (08:38)
[2021-10-20] MEDS: APIXABAN 5 MG TAB PO SCH ×2 (08:38→20:06)
[2021-10-20] MEDS: FUROSEMIDE 20 MG TAB PO SCH (08:38)
[2021-10-20] MEDS: DILTIAZEM ORAL 30 MG TAB PO SCH ×3 (08:38→20:06)
[2021-10-20] MEDS: AMIODARONE 200 MG TAB PO SCH ×2 (08:38→20:06)
[2021-10-20 08:44] LABS: Basophils % (A) 0 %; Eosinophils % (A) 0 %; HCT 43.2 % (39.0-53.0); HGB 13.2 gm/dL (13.0-17.5); Hypochromasia Slight; Lymphocytes # (A) 1.1 k/uL (1.0-4.8); Lymphocytes % (A) 9 %; MCH 31.4 pg (25.0-35.0); MCHC 30.6 g/dL (31.0-37.0); MCV 102.5 fL (80.0-100.0); Macrocytosis Slight; Mean Platelet Volume 7.6; Monocytes # (A) 0.3 k/uL (0-1.0); Monocytes % (A) 3 %; Neutrophils # (A) 11.3 k/uL (1.3-7.7); Neutrophils % (A) 88 %; Platelet Count 404 k/uL (150-450); RBC 4.22 m/uL (4.30-5.90); RDW 14.9 % (11.5-15.5); WBC 12.9 k/uL (3.8-10.6)
[2021-10-20 08:54] LABS: African American GFR (CKD) >90 (>60 ml/min/1.73 sqM); Anion Gap 4 mmol/L; Blood Urea Nitrogen 18 mg/dL (9-20); Calcium 8.2 mg/dL (8.4-10.2); Carbon Dioxide 30 mmol/L (22-30); Chloride 103 mmol/L (98-107); Glucose 159 mg/dL (74-99); Magnesium 2.1 mg/dL (1.6-2.3); Non-African American GFR(CKD) >90 (>60 ml/min/1.73 sqM); Potassium 4.4 mmol/L (3.5-5.1); Sodium 137 mmol/L (137-145)
[2021-10-20 09:00] LABS: Vancomycin,Random 12.5 ug/mL
--- NOTE | 2021-10-20 10:34 | P.PN ---
Subjective Progress Note Date: 10/20/21 HISTORY OF PRESENT ILLNESS: This is a 76-year-old gentleman with a past medical history significant for hypertension and dyslipidemia and sleep apnea and also chronic obstructive pulm onary disease, presented to the emergency department complaining of shortness of breath. We consulted to see the patient for further evaluation of abnormal cardiac enzymes and elevated troponin. The patient states that for the last few days he has not been feeding well. He has been experiencing increasing in the temperature associated with cough productive of sputum. Beside that he was experiencing increasing in the shortness of breath but no symptoms of chest pain or chest discomfort and no dizziness or lightheadedness or any feeling of heart racing or fluttering or presyncope or syncope. In the ER the patient was found to be hypoxic with oxygen saturation of 75% and subsequently he was placed on BiPAP with improvement in his oxygenation. Also he presented to the emergency department he was in atrial fibrillation with RVR and subsequently converted to normal sinus mechanism after he was started on Cardizem IV. Currently he is in sinus rhythm was sinus bradycardia. He still on Cardizem IV. He is also on heparin IV. The patient underwent a workup including EKG as described earlier showing A. fib with diffuse nonspecific ST and T wave abnormalities. No EKG after the patient was converted to normal sinus mechanism. Also the troponin came in to be elevated. The chest x-ray showed findings consistent with a pneumonia. He underwent a computed tomography scan of the chest which showed multiple findings including no pulmonary embolism, bilateral hilar adenopathy, bilateral infiltrate, and also small to moderate pericardial effusion, heart failure. The patient has no history of coronary artery disease or congestive heart failure or any cardiac arrhythmia and never seen any c developer in the past. When he was seen and examined he was in bilateral expiratory wheezing with regular heart sounds and states bilateral lower extremities edema 10/15/21 Patient was seen and fully evaluated at the bedside this morning. Patient resting comfortably on BiPAP with FiO2 of 60% oxygen saturation 94%. He reports feeling better this morning. He denies having any chest pain, palpitations, shortness of breath, dizziness/lightheadedness, or any other complaints. Patient remains in normal sinus rhythm at time of assessment. He remains on IV heparin and we will plan to transition to oral anticoagulant once patient has been weaned off of BiPAP. Echocardiogram revealed an EF between 50 and 55% with mild mitral and tricuspid regurgitation, mild aortic valve sclerosis, and moderately enlarged right ventricle with left ventricular hypertrophy. 10/16/21 Patient seen and fully evaluated at the bedside this morning. He has been weaned off BiPAP and was on 10 L O2 via high flow nasal cannula to allow patient to eat breakfast. SpO2 89%. Patient denies any chest pain, palpitations, shortness of breath, or experiencing any dizziness/lightheadedness at this time. Patient had slight conversational dyspnea noted and lungs with diffuse coarse crackles bilaterally. Vital signs reviewed patient continues to have rapid ventricular rate ranging from 90s to 120s and is hypertensive with blood pressure 190/96. Metoprolol increased to 50 mg daily and additional medications including lisinopril 5 mg daily, aspirin 81 mg daily and Lasix 20 mg IVP every 12 hours were also added this morning. Heparin discontinued and patient started on oral anticoagulation with Eliquis 5 mg twice daily. 10/17/21 Patient examined this morning at the bedside. Patient denies chest pain or pressure. He denies any SOB. He remains on Bipap. Telemetry reveals sinus mechanism. He is anticoagulated with Eliquis. Vital signs are stable. 10/18/2021 Patient examined this morning at the bedside. Patient denies chest pain or pressure. He reports sinus congestion. He also reports a cough with occasional sputum production. He remains on IV lasix q12 hours. Creatinine is stable at 0.61. Fluid balance over the last 24 hours is -2 L. 10/19/2021 Patient examined this morning at the bedside. Patient denies chest pain or pressure. He reports his breathing feels about the same as yesterday. He remains on IV Lasix 20 mg daily. Patient's blood pressure stable with a reading of 138/98; improved with adjustment of lisinopril yesterday. Patient is back in atrial fibrillation this morning with a heart rate around 120. He is currently receiving metoprolol 50 mg 3 times a day. 10/20/2021 Patient examined this morning at the bedside. Patient states his breathing is improving. He is on 11L HF NC. He denies chest pain or pressure. Denies palpitations. Telemetry this morning reveals sinus rhythm with PVCs and PACs. Patient was started on oral amiodarone and oral Cardizem yesterday. Blood pressure this morning 170/75, which was prior to him receiving his AM medications. PHYSICAL EXAM: VITAL SIGNS: Reviewed. GENERAL: Well-developed in no acute distress. NECK: Supple. No JVD or thyromegaly LUNGS: Respirations even and unlabored. Lungs diminished with scattered rhonchi. HEART: Irregular rate and rhythm. S1 and S2 heard. EXTREMITIES: Normal range of motion. No clubbing or cyanosis. Peripheral pulses intact. Trace bilateral lower extremity edema ASSESSMENT: Bilateral pneumonia Acute COPD exacerbation Hypoxemia secondary to the above New onset paroxysmal atrial fibrillation with RVR Type II NSTEMI resulting from demand ischemia from RVR Obstructive sleep apnea PLAN: Continue current cardiac medications Continue metoprolol, cardizem, and amio Continue telemetry monitoring Continue anticoagulation with Eliquis Recheck BP after AM medications. If BP remains elevated, will adjust medication regimen Further recommendations pending patient course Nurse practitioner note has been reviewed by physician. Signing provider agrees with the documented findings, assessment, and plan of care. Objective - Vital Signs Vital signs: Vital Signs Temp 98.1 F 10/20/21 07:38 Pulse 64 10/20/21 07:54 Resp 20 10/20/21 07:38 BP 170/75 10/20/21 07:38 Pulse Ox 94 L 10/20/21 07:38 Intake & Output 10/19/21 10/20/21 10/20/21 18:59 06:59 18:59 Intake Total 620 240 Output Total 3000 1974 Balance -2210 -8457 Weight 111 kg Intake: Intake, IV Titration 500 Amount Vancomycin 2,000 mg In 500 Sodium Chloride 0.9% 500 ml 500 ml @ 167 mls/hr IVPB Q8H [facility] Rx#: [id number] Oral 120 240 Output: Urine 3000 1974 Other: Voiding Method Urinal Urinal Urinal # Voids 1 - Labs CBC & Chem 7: 10/20/21 08:25 10/20/21 08:25 Labs: Abnormal Lab Results - Last 24 Hours (Table) 10/19/21 10/19/21 10/20/21 Range/Units 18:35 19:54 06:03 WBC (3.8-10.6) k/uL RBC (4.30-5.90) m/uL MCV (80.0-100.0) fL MCHC (31.0-37.0) g/dL Neutrophils # (1.3-7.7) k/uL Creatinine (0.66-1.25) mg/dL Glucose (74-99) mg/dL POC Glucose (mg/dL) 139 H 129 H (75-99) mg/dL Calcium (8.4-10.2) mg/dL Vancomycin Trough 30.8 H* ug/mL 10/20/21 10/20/21 Range/Units 08:25 08:25 WBC 12.9 H (3.8-10.6) k/uL RBC 4.22 L (4.30-5.90) m/uL MCV 102.5 H (80.0-100.0) fL MCHC 30.6 L (31.0-37.0) g/dL Neutrophils # 11.3 H (1.3-7.7) k/uL Creatinine 0.52 L (0.66-1.25) mg/dL Glucose 159 H (74-99) mg/dL POC Glucose (mg/dL) (75-99) mg/dL Calcium 8.2 L (8.4-10.2) mg/dL Vancomycin Trough ug/mL Microbiology - Last 24 Hours (Table) 10/13/21 14:20 Blood Culture - Final Blood No Growth after 144 hours 10/13/21 14:20 Blood Culture - Final Blood No Growth after 144 hours 10/18/21 23:30 Nasal Screen MRSA/MSSA - Preliminary Nasal Swab
[2021-10-20 11:30] LABS: Glucose,Whole Blood 108 mg/dL (75-99)
[2021-10-20] MEDS: VANCOMYCIN 1,750 MG in SODIUM CHLORIDE 0.9% 500 ML 500 ML IVPB SCH (12:56)
--- NOTE | 2021-10-20 13:50 | P.PN ---
Subjective Progress Note Date: 10/20/21 76-year-old male with a history of COPD, who presents to the emergency department on October 13, complaining of shortness of breath. On today's evaluation of 10/17/2021, the patient is being seen for a follow-up. Is a 76-year-old male patient with known history of COPD with previous bouts of pneumonias. The patient came into the hospital because of another bout of bilateral pneumonia with extensive consolidation of the right lung and some ongoing consolidation of the left lung base. The patient was quite hypoxic, supported with BiPAP, supported with IV antibiotics. The patient was also found to be in atrial fibrillation and rapid ventricular response and the patient was started on IV heparin and Cardizem drip for rate control. Noted the patient's COVID 19 testing was negative and the patient tested negative for COVID 19 infection.. Note that the patient also had a CAT scan of the chest that showed mediastinal bilateral hilar lymphadenopathy measuring up to 5.2 cm in size. This morning, the patient is still coughing. He was taken off the BiPAP and he is on 9 L about 2 by nasal cannula. He remains on DuoNeb nebulized treatment [id number]. Antibiotic coverage is with a combination of Rocephin and Zithromax. Chest x-ray from yesterday showed bilateral patchy airspace disease right more than left. The white cell count remains elevated at 24.6 with a hemoglobin of 11.9. Platelets of 277. The patient's PTT is therapeutic at 68. Electrodes are normal. No function is normal. Legionella urine antigen has been negative. The pro calcitonin level has not been checked in the level was sent. Troponin peaked at 1.7-1.2. On 10/18/2021, the patient is still having difficulties with breathing. He was on BiPAP throughout the night and the patient is currently on oxygen and he was placed on 4 L about 2 by nasal cannula. He is slightly short of breath and he has a congested cough. Unable to bring up much sputum. Note that I broaden his antibiotic coverage since yesterday and the patient is currently on a combination of cefepime and Zithromax. Despite extensive consolidation of the right lung, the pro calcitonin level is low at 0.06. The patient's white cell count was elevated and currently is down to 18 with a hemoglobin of 12.5 and a platelet count of 294. Electrodes are all within normal limits. A repeat chest x-ray was done today and the chest x-ray showed airspace disease similar in appearance compared to the earlier chest x-ray of 10/16/2021. There is evidence of chronic appearing rib cage deformity in the upper posterior right chest there is also apical thickening. 10/19/2021, the patient is feeling well. Cough is less congested. The patient is covered with triple antibiotics and the patient is currently on a combination of vancomycin, cefepime and Zithromax. No fever. No chills. He remains on oxygen and the patient is currently on 12-14 L high flow oxygen. The CBC still pending for now. Note that his white cell count was improving as of yesterday and was down to 18. Clinically the patient is feeling better. The BUN is at 20 with a creatinine of 0.5, sodium level is at 137. As of the electrodes are normal. Breathing is nonlabored. He has no significant sputum production. No hemoptysis or pleurisy. No altered mentation. He is weak. Note that his earlier pro calcitonin level came back at 0.06. 10/20/2021, I'm seeing the patient for a follow-up. Patient is doing well. Clinically improving. He feels less short of breath and I was able to wean down the oxygen down to 8 L of oxygen by nasal cannula. Nevertheless, the chest x- ray still showing extensive consolidation of the right lung. The patient remains on triple antibiotic coverage utilizing a combination of cefepime, Zithromax and vancomycin. No hemoptysis. No pleurisy. He has a good appetite. No nausea vomiting or diarrhea or abdominal pain. No fever. Meanwhile, the white cell count of 12.9 which is improved and her hemoglobin is at 13.2 and a platelet count is at 404. Normal creatinine. No other new complaints otherwise for now. Chest x-ray from today was noted. Oxygenation is gradually improving. Objective - Vital Signs Vital signs: Vital Signs Temp 98.1 F 10/20/21 11:33 Pulse 62 10/20/21 11:33 Resp 19 10/20/21 11:33 BP 135/70 10/20/21 11:33 Pulse Ox 95 10/20/21 11:33 Intake & Output 02/11/0810/20/21 10/20/21 18:59 06:59 18:59 Intake Total 620 240 Output Total 3000 1974 Balance -4562 -9195 -960 Weight 111 kg Intake: Intake, IV Titration 500 Amount Vancomycin 2,000 mg In 500 Sodium Chloride 0.9% 500 ml 500 ml @ 167 mls/hr IVPB Q8H BALTAZAR Rx#: [id number] Oral 120 240 Output: Urine 3000 1974 625 Other: Voiding Method Urinal Urinal Urinal # Voids 1 - Exam GENERAL EXAM: Alert, very pleasant 76-year-old gentleman, on 8 L O2 by nasal cannula. The patient is on no BiPAP. HEAD: Normocephalic. EYES: Normal reaction of pupils, equal size. NOSE: Clear with pink turbinates. THROAT: No erythema or exudates. NECK: No masses, no JVD. CHEST: No chest wall deformity. LUNGS: Equal air entry with coarse bilateral rhonchi, crackles in the mid and lower lung taylor bilaterally more so on the right and there is diminished breath sounds along with scattered expiratory wheezes. CVS: S1 and S2 normal with no audible murmur, regular rhythm. ABDOMEN: No hepatosplenomegaly, normal bowel sounds, no guarding or rigidity. SPINE: No scoliosis or deformity SKIN: No rashes CENTRAL NERVOUS SYSTEM: No focal deficits, tone is normal in all 4 extremities. EXTREMITIES: There is no peripheral edema. No clubbing, no cyanosis. Peripheral pulses are intact. - Labs CBC & Chem 7: 10/20/21 08:25 10/20/21 08:25 Labs: Abnormal Lab Results - Last 24 Hours (Table) 10/19/21 10/19/21 10/20/21 Range/Units 18:35 19:54 06:03 WBC (3.8-10.6) k/uL RBC (4.30-5.90) m/uL MCV (80.0-100.0) fL MCHC (31.0-37.0) g/dL Neutrophils # (1.3-7.7) k/uL Creatinine (0.66-1.25) mg/dL Glucose (74-99) mg/dL POC Glucose (mg/dL) 139 H 129 H (75-99) mg/dL Calcium (8.4-10.2) mg/dL Vancomycin Trough 30.8 H* ug/mL 10/20/21 10/20/21 10/20/21 Range/Units 08:25 08:25 11:29 WBC 12.9 H (3.8-10.6) k/uL RBC 4.22 L (4.30-5.90) m/uL MCV 102.5 H (80.0-100.0) fL MCHC 30.6 L (31.0-37.0) g/dL Neutrophils # 11.3 H (1.3-7.7) k/uL Creatinine 0.52 L (0.66-1.25) mg/dL Glucose 159 H (74-99) mg/dL POC Glucose (mg/dL) 108 H (75-99) mg/dL Calcium 8.2 L (8.4-10.2) mg/dL Vancomycin Trough ug/mL Microbiology - Last 24 Hours (Table) 10/18/21 23:30 Nasal Screen MRSA/MSSA - Final Nasal Swab 10/13/21 14:20 Blood Culture - Final Blood No Growth after 144 hours 10/13/21 14:20 Blood Culture - Final Blood No Growth after 144 hours Assessment and Plan Plan: 1 acute hypoxic respiratory failure second to bilateral pneumonia right more than left. This is most likely a bacterial infection. COVID 19 evaluation came back negative and the patient had a negative Legionella urine antigen. The patient remains on broad-spectrum antibiotics. The patient is currently off the BiPAP and the patient is currently on 8 L of O2 by nasal cannula. Chest x-ray still showing extensive amount consolidation on the right. No major improvement in the chest x-ray. Clinically however the patient is improving. Oxidation is also improving. He continues to have extensive consolidation of the right lung with a chest x-ray findings remain essentially unchanged. The pro calcitonin level was low at 0.03. Currently on a combination of cefepime and Zithromax and the patient is also on vancomycin. 2 acute non-ST segment elevation myocardial infarction, currently off IV heparin and the patient was started on long-term and to coagulation with Eliquis 5 mg by mouth twice a day. 3 acute kidney injury, improving 2 acute atrial fibrillation with rapid ventricular response , rate is controlled and the patient is on amiodarone 400 mg by mouth twice a day, metoprolol 50 mg by mouth 3 times a day and the patient is on long-term and coagulation with Eliquis. 3 dyspnea secondary to above 4 History of COPD. 5 History of hypertension. 6 History of obstructive sleep apnea syndrome. 7 History of skin cancer. 8 Prior history of pneumonia.the patient's previous cultures from 04/02/2019 was strep pneumonia and pseudomonas aeruginosa. 9 Prior history of tobacco use. 10 leukocytosis, improving Plan: Continue IV cefepime and Zithromax and vancomycin Wean down the FiO2 as tolerated currently on 8 L of oxygen by nasal cannula Chest x-ray from today was reviewed Leukocytosis improving Continued on DuoNeb inhalations Pulmicort and Perforomist IV Solu-Medrol Anticoagulations with Dilma Orchid Hand of the case regarding the acute non-STEMI Repeat chest x-ray from today was noted We'll continue to follow. Keep same antibiotic coverage.
--- NOTE | 2021-10-20 14:35 | P.PN ---
Progress Note - Text Progress Note Date: 10/20/21 Chief Complaint: Short of breath Hospital course This is a pleasant 76-year-old patient of Dr. Sultana. Chronic stable medical conditions include hypertension, obstructive sleep apnea, DJD, obesity. Depression, Patient presented increasing shortness of breath for 1 week, wheezing. Cough fever periods Sputum Production. Decrease Appetite Tired Rundown. Symptoms Became Progressively Worse. Found to Pulse Ox of 75% in the ER. Put on a BiPAP. Antibiotics. Bronchodilators. Admitted with bilateral pneumonia right greater than left, atrial fibrillation rapid ventricular rate, sepsis, COPD exacerbation. Started on IV cefepime, bronchodilators, IV steroids, IV heparin, IV Cardizem drip. Patient requiring BiPAP. Patient was changed over from IV heparin to eliquis. Beta blockers added. October 17: Breathing better. Decreased sputum production. On 12 L high flow nasal cannula. Had about half his breakfast. Not much appetite for lunch. Requested the patient sit up in a chair. Tired. Patient has been in sinus rhythm. October 18: Remains tired, short of breath. 12 L nasal cannula. Eating some. Vancomycin added by pulmonary. October 19: Tired. Short of breath. Remains on high flow nasal cannula. Intermittent BiPAP. Oral intake very well. Cough. I did today atrial fibrillation with rapid ventricular rate. Lopressor increased to 50 mg 3 times a day by cardiology. October 20: Feeling better. Sitting at the edge of the bed. 8 on his lunch. On 11 L nasal cannula. Patient is in sinus rhythm. Patient was started on oral amiodarone and oral Cardizem yesterday. Review of systems: Was done for constitutional, cardiovascular, GI, pulmonary. relevant finding as above Active Medications Acetaminophen (Acetaminophen Tab 325 Mg Tab) 650 mg PO Q6HR PRN PRN Reason: Mild Pain or Fever > 100.5 Hydrocodone Bitart/Acetaminophen (Hydrocodone/Apap 10-325mg 1 Each Tab) 1 each PO Q8HR PRN PRN Reason: Pain Hydrocodone Bitart/Acetaminophen (Hydrocodone/Apap 10-325mg 1 Each Tab) 1 each PO Q6H [facility]TAZAR Last Admin: 10/20/21 11:35 Dose: 1 each Documented by: Albuterol/Ipratropium (Ipratropium-Albuterol 3 Ml Neb) 3 ml INHALATION RT-Q4H PRN PRN Reason: Shortness Of Breath Or Wheezing Last Admin: 10/17/21 11:28 Dose: 3 ml Documented by: Albuterol/Ipratropium (Ipratropium-Albuterol 3 Ml Neb) 3 ml INHALATION RT-QID [facility] Last Admin: 10/20/21 11:00 Dose: Not Given Documented by: Alprazolam (Alprazolam 0.25 Mg Tab) 0.25 mg PO Q6HR PRN PRN Reason: Anxiety Last Admin: 10/19/21 21:30 Dose: 0.25 mg Documented by: Amiodarone HCl (Amiodarone 200 Mg Tab) 400 mg PO BID [facility] Last Admin: 10/20/21 08:38 Dose: 400 mg Documented by: Apixaban (Apixaban 5 Mg Tab) 5 mg PO BID [facility]; Protocol Last Admin: 10/20/21 08:38 Dose: 5 mg Documented by: Aspirin (Aspirin 81 Mg) 81 mg PO DAILY [facility] Last Admin: 10/20/21 08:38 Dose: 81 mg Documented by: Atorvastatin Calcium (Atorvastatin 80 Mg Tab) 80 mg PO HS [facility] Last Admin: 10/19/21 21:30 Dose: 80 mg Documented by: Azithromycin (Azithromycin 500 Mg Tab) 500 mg PO DAILY [facility] Last Admin: 10/20/21 08:37 Dose: 500 mg Documented by: Budesonide (Budesonide 1 Mg/2 Ml Nebu) 1 mg INHALATION RT-BID [facility] Last Admin: 10/20/21 07:34 Dose: 1 mg Documented by: Calcium Carbonate/Glycine (Calcium Carbonate 500 Mg Chewable) 1,000 mg PO Q4HR PRN PRN Reason: Dyspepsia Last Admin: 10/14/21 18:02 Dose: 1,000 mg Documented by: Diltiazem HCl (Diltiazem Oral 30 Mg Tab) 30 mg PO TID [facility] Last Admin: 10/20/21 08:38 Dose: 30 mg Documented by: Famotidine (Famotidine 20 Mg Tab) 20 mg PO DAILY [facility] Last Admin: 10/20/21 08:37 Dose: 20 mg Documented by: Formoterol Fumarate (Formoterol Fumarate 20 Mcg/2 Ml Nebu) 20 mcg INHALATION RT-BID [facility] Last Admin: 10/20/21 07:34 Dose: 20 mcg Documented by: Furosemide (Furosemide 20 Mg Tab) 20 mg PO DAILY [facility] Last Admin: 10/20/21 08:38 Dose: 20 mg Documented by: Guaifenesin/Dextromethorphan (Guaifenesin-Dm 100-10mg/5ml 10 Ml Cup) 10 ml PO Q6HR PRN PRN Reason: Cough Sodium Chloride (Saline 0.9%) 1,000 mls @ 50 mls/hr IV .Q20H [facility] Last Admin: 10/19/21 21:31 Dose: 50 mls/hr Documented by: Cefepime HCl 2 gm/ Sodium (Chloride) 100 mls @ 25 mls/hr IVPB Q12HR [facility] Last Admin: 10/20/21 08:37 Dose: 25 mls/hr Documented by: Vancomycin HCl 1,750 mg/ (Sodium Chloride) 500 mls @ 167 mls/hr IVPB Q16H [facility] Last Admin: 10/20/21 12:56 Dose: 167 mls/hr Documented by: Insulin Aspart (Insulin Aspart (Novolog) 100 Unit/Ml Vial) 0 unit SQ ACHS [facility]; Protocol Last Admin: 10/20/21 11:54 Dose: Not Given Documented by: Lactulose (Lactulose 20 Gm/30 Ml Cup) 20 gm PO DAILY PRN PRN Reason: Constipation Lisinopril (Lisinopril 5 Mg Tab) 5 mg PO BID [facility] Last Admin: 10/20/21 08:38 Dose: 5 mg Documented by: Lorazepam (Lorazepam 2 Mg/Ml Inj) 0.5 mg IV Q8HR PRN PRN Reason: Anxiety Last Admin: 10/15/21 09:14 Dose: 0.5 mg Documented by: Melatonin (Melatonin 3 Mg Tablet) 3 mg PO HS PRN PRN Reason: Insomnia Methylprednisolone Sodium Succinate (Methylprednisolone Sod Succi 40 Mg/Ml 1 Ml Vial) 40 mg IV Q8HR [facility] Last Admin: 10/20/21 08:37 Dose: 40 mg Documented by: Metoprolol Tartrate (Metoprolol Tartrate 50 Mg Tab) 50 mg PO TID [facility] Last Admin: 10/20/21 08:38 Dose: 50 mg Documented by: Morphine Sulfate (Morphine Sulfate Er 15 Mg Tablet) 15 mg PO BID@0600,1600 [facility]; Protocol Last Admin: 10/20/21 06:32 Dose: Not Given Documented by: Naloxone HCl (Naloxone 0.4 Mg/Ml 1 Ml Vial) 0.2 mg IV Q2M PRN PRN Reason: Opioid Reversal Ondansetron HCl (Ondansetron 4 Mg/2 Ml Vial) 4 mg IVP Q8HR PRN PRN Reason: Nausea And Vomiting Pramipexole Dihydrochloride (Pramipexole 1 Mg Tab) 1 mg PO BID@0600,1600 [facility] Last Admin: 10/20/21 06:37 Dose: 1 mg Documented by: Sertraline HCl (Sertraline 100 Mg Tab) 100 mg PO DAILY@1600 [facility] Last Admin: 10/19/21 16:31 Dose: 100 mg Documented by: Past medical history to include: COPD, hypertension, obstructive sleep apnea, DJD, skin cancer Social history: . Smoked for 30 years stopped in 1979. Family history: Reviewed, noncontributory to presentation Physical examination: VITAL SIGNS: 98.1, 62, 19, 135/70, 95% 11 L GENERAL:, Sitting up at the edge of the bed, eating EYES: Pupils equal. Conjunctiva normal. HEENT: External appearance of nose and ears normal, oral cavity grossly normal. NECK: JVD unable to assess; masses not palpable. HEART: First and second heart sounds are normal; no edema. LUNGS: Respiratory rate increased decreased breath sounds, ABDOMEN: Soft, nontender, liver spleen not palpable, no masses palpable. PSYCH: Alert and oriented x3; mood and affect better MUSCULOSKELETAL:No Clubbing/cyanosis;muscles-grossly intact INVESTIGATIONS, reviewed in the clinical context: October 20: White count 12.9 hemoglobin 13.2 platelets 404 potassium 4.4 creatinine 0.5 to October 19: Potassium 4.5 crit 0.5 October 18: White count 18 hemoglobin 12.5 potassium 4.3 creatinine 0.61 October 17: White count 24.6 hemoglobin 11.9 platelets 277 sodium 141 potassium 4.2 creatinine 0.67. Pro-calcitonin 0.06 Chest x-ray film personally reviewed by me-[October 16] significant right-sided infiltrates White count 25.6 hemoglobin 15.9 platelets 324 increased neutrophils d-dimer 7.48 sodium 138 potassium 4.2. 38 creatinine 1.53 lactic acid 3.8 Troponin I 2.0, 1.7, 1.2 Coronavirus [PCR]: Not detected EKG tracing personally reviewed by me-atrial fibrillation ST-T wave changes, rate 138 Chest angiogram chest: Moderate emphysema. Extensive patchy and confluent consolidation throughout the right lung. Some of the left side 2. Hilar lymphadenopathy. Chest x-ray film personally reviewed by me-extensive infiltrate on the right mid zone and some on the left side Assessment and plan: -Severe pneumonia predominantly right-sided gram-negative organism: Slow to respond Cefepime 2 g every 12 hour. IV vancomycin admitted -Severe sepsis from pneumonia: Better IV fluids. Antibiotics. -Paroxysmal Atrial fibrillation rapid ventricular rate on presentation. Back in sinus rhythm Beta valente. [Received: IV heparin. IV Cardizem drip] Eliquis, Lopressor 50 mg 3 times a day. By mouth Cordarone. Cardizem 30 mg 3 times a day IV heparin monitoring: Discontinued Follow PTT -Acute COPD exacerbation in a prior smoker: Slow to respond DuoNeb. IV Solu-Medrol -Acute severe hypoxic respiratory failure from pneumonia: Slow to respond Intermittent BiPAP. 12-14 L high flow nasal cannula -Essential hypertension Zestril 10 mg daily Toprol-XL 25 mg daily -Restless leg syndrome Mirapex 1 mg twice a day -Depression Zoloft 100 mg daily Primary osteoarthritis multiple joints bilaterally Palo 10 every 6 IV cefepime. IV vancomycin. IV Solu-Medrol. Bronchodilators. Lopressor, Cardizem, by mouth, amiodarone: Patient back in sinus rhythm. 11 L nasal cannula. Encouraged to use incentive spirometry more frequently.
[2021-10-20] MEDS: SERTRALINE 100 MG TAB PO SCH (16:01)
[2021-10-20 16:18] LABS: Glucose,Whole Blood 107 mg/dL (75-99)
[2021-10-20] MEDS: SODIUM CHLORIDE 0.9% 1,000 ML IV SCH (18:20)
[2021-10-20 19:57] LABS: Glucose,Whole Blood 153 mg/dL (75-99)
[2021-10-20] MEDS: ATORVASTATIN 80 MG TAB PO SCH (20:06)
[2021-10-21] MEDS: VANCOMYCIN 1,750 MG in SODIUM CHLORIDE 0.9% 500 ML 500 ML IVPB SCH ×2 (03:16→22:10)
[2021-10-21 06:06] LABS: Glucose,Whole Blood 155 mg/dL (75-99)
[2021-10-21] MEDS: PRAMIPEXOLE 1 MG TAB PO SCH ×2 (06:23→17:25)
[2021-10-21] MEDS: MORPHINE SULFATE ER 15 MG TABLET PO SCH ×2 (06:23→17:06)
[2021-10-21] MEDS: HYDROcodone/APAP 10-325MG 1 EACH TAB PO SCH ×3 (06:24→17:55)
[2021-10-21] MEDS: INSULIN ASPART (NovoLOG) 100 UNIT/ML VIAL SQ SCH ×4 (06:24→22:06)
[2021-10-21] MEDS: IPRATROPIUM-ALBUTEROL 3 ML NEB INHALATION SCH ×4 (07:40→20:02)
[2021-10-21] MEDS: BUDESONIDE 1 MG/2 ML NEBU INHALATION SCH ×2 (07:40→20:02)
[2021-10-21] MEDS: FORMOTEROL FUMARATE 20 MCG/2 ML NEBU INHALATION SCH ×2 (07:40→20:02)
[2021-10-21 07:43] LABS: African American GFR (CKD) >90 (>60 ml/min/1.73 sqM); Non-African American GFR(CKD) >90 (>60 ml/min/1.73 sqM)
[2021-10-21] MEDS: ASPIRIN 81 MG PO SCH (09:32)
[2021-10-21] MEDS: METOPROLOL TARTRATE 50 MG TAB PO SCH ×3 (09:32→22:05)
[2021-10-21] MEDS: methylPREDNISolone SOD SUCCI 40 MG/ML 1 ML VIAL IV SCH ×2 (09:32→17:01)
[2021-10-21] MEDS: DILTIAZEM ORAL 30 MG TAB PO SCH ×3 (09:32→22:05)
[2021-10-21] MEDS: FAMOTIDINE 20 MG TAB PO SCH (09:32)
[2021-10-21] MEDS: FUROSEMIDE 20 MG TAB PO SCH (09:33)
[2021-10-21] MEDS: APIXABAN 5 MG TAB PO SCH ×2 (09:33→22:06)
[2021-10-21] MEDS: AZITHROMYCIN 500 MG TAB PO SCH (09:33)
[2021-10-21] MEDS: CEFEPIME 2 GM in SODIUM CHLORIDE 0.9% 100 ML IVPB SCH ×2 (09:33→22:08)
[2021-10-21] MEDS: AMIODARONE 200 MG TAB PO SCH ×2 (09:33→22:06)
[2021-10-21] MEDS: lisinopriL 10 MG TAB PO SCH ×2 (09:35→22:05)
[2021-10-21] MEDS ORDERED: SODIUM CHLORIDE 0.65% NASAL SPRAY 44 ML BTL NASAL PRN (10:41)
[2021-10-21 11:31] LABS: Glucose,Whole Blood 143 mg/dL (75-99)
--- NOTE | 2021-10-21 11:38 | P.PN ---
Subjective Progress Note Date: 10/21/21 HISTORY OF PRESENT ILLNESS: This is a 76-year-old gentleman with a past medical history significant for hypertension and dyslipidemia and sleep apnea and also chronic obstructive pulm onary disease, presented to the emergency department complaining of shortness of breath. We consulted to see the patient for further evaluation of abnormal cardiac enzymes and elevated troponin. The patient states that for the last few days he has not been feeding well. He has been experiencing increasing in the temperature associated with cough productive of sputum. Beside that he was experiencing increasing in the shortness of breath but no symptoms of chest pain or chest discomfort and no dizziness or lightheadedness or any feeling of heart racing or fluttering or presyncope or syncope. In the ER the patient was found to be hypoxic with oxygen saturation of 75% and subsequently he was placed on BiPAP with improvement in his oxygenation. Also he presented to the emergency department he was in atrial fibrillation with RVR and subsequently converted to normal sinus mechanism after he was started on Cardizem IV. Currently he is in sinus rhythm was sinus bradycardia. He still on Cardizem IV. He is also on heparin IV. The patient underwent a workup including EKG as described earlier showing A. fib with diffuse nonspecific ST and T wave abnormalities. No EKG after the patient was converted to normal sinus mechanism. Also the troponin came in to be elevated. The chest x-ray showed findings consistent with a pneumonia. He underwent a computed tomography scan of the chest which showed multiple findings including no pulmonary embolism, bilateral hilar adenopathy, bilateral infiltrate, and also small to moderate pericardial effusion, heart failure. The patient has no history of coronary artery disease or congestive heart failure or any cardiac arrhythmia and never seen any chief fundraising officer in the past. When he was seen and examined he was in bilateral expiratory wheezing with regular heart sounds and states bilateral lower extremities edema 10/15/21 Patient was seen and fully evaluated at the bedside this morning. Patient resting comfortably on BiPAP with FiO2 of 60% oxygen saturation 94%. He reports feeling better this morning. He denies having any chest pain, palpitations, shortness of breath, dizziness/lightheadedness, or any other complaints. Patient remains in normal sinus rhythm at time of assessment. He remains on IV heparin and we will plan to transition to oral anticoagulant once patient has been weaned off of BiPAP. Echocardiogram revealed an EF between 50 and 55% with mild mitral and tricuspid regurgitation, mild aortic valve sclerosis, and moderately enlarged right ventricle with left ventricular hypertrophy. 10/16/21 Patient seen and fully evaluated at the bedside this morning. He has been weaned off BiPAP and was on 10 L O2 via high flow nasal cannula to allow patient to eat breakfast. SpO2 89%. Patient denies any chest pain, palpitations, shortness of breath, or experiencing any dizziness/lightheadedness at this time. Patient had slight conversational dyspnea noted and lungs with diffuse coarse crackles bilaterally. Vital signs reviewed patient continues to have rapid ventricular rate ranging from 90s to 120s and is hypertensive with blood pressure 190/96. Metoprolol increased to 50 mg daily and additional medications including lisinopril 5 mg daily, aspirin 81 mg daily and Lasix 20 mg IVP every 12 hours were also added this morning. Heparin discontinued and patient started on oral anticoagulation with Eliquis 5 mg twice daily. 10/17/21 Patient examined this morning at the bedside. Patient denies chest pain or pressure. He denies any SOB. He remains on Bipap. Telemetry reveals sinus mechanism. He is anticoagulated with Eliquis. Vital signs are stable. 10/18/2021 Patient examined this morning at the bedside. Patient denies chest pain or pressure. He reports sinus congestion. He also reports a cough with occasional sputum production. He remains on IV lasix q12 hours. Creatinine is stable at 0.61. Fluid balance over the last 24 hours is -2 L. 10/19/2021 Patient examined this morning at the bedside. Patient denies chest pain or pressure. He reports his breathing feels about the same as yesterday. He remains on IV Lasix 20 mg daily. Patient's blood pressure stable with a reading of 138/98; improved with adjustment of lisinopril yesterday. Patient is back in atrial fibrillation this morning with a heart rate around 120. He is currently receiving metoprolol 50 mg 3 times a day. 10/20/2021 Patient examined this morning at the bedside. Patient states his breathing is improving. He is on 11L HF NC. He denies chest pain or pressure. Denies palpitations. Telemetry this morning reveals sinus rhythm with PVCs and PACs. Patient was started on oral amiodarone and oral Cardizem yesterday. Blood pressure this morning 170/75, which was prior to him receiving his AM medications. 10/21/2021 Patient examined this morning. Patient is sitting up in the chair. He appears to be improving. He denies chest pain or pressure. He reports improvement in his shortness of breath. Patient's blood pressure remains elevated this morning with a systolic in the 180s. Telemetry reveals sinus rhythm with PACs. PHYSICAL EXAM: VITAL SIGNS: Reviewed. GENERAL: Well-developed in no acute distress. NECK: Supple. No JVD or thyromegaly LUNGS: Respirations even and unlabored. Lungs diminished with scattered rhonchi. HEART: Irregular rate and rhythm. S1 and S2 heard. EXTREMITIES: Normal range of motion. No clubbing or cyanosis. Peripheral pulses intact. Trace bilateral lower extremity edema ASSESSMENT: Bilateral pneumonia Acute COPD exacerbation Hypoxemia secondary to the above New onset paroxysmal atrial fibrillation with RVR Type II NSTEMI resulting from demand ischemia from RVR Obstructive sleep apnea PLAN: Continue current cardiac medications Continue metoprolol, cardizem, and amio Continue telemetry monitoring Continue anticoagulation with Eliquis Increase lisinopril to 10 mg twice a day for optimal blood pressure control Further recommendations pending patient course Nurse practitioner note has been reviewed by physician. Signing provider agrees with the documented findings, assessment, and plan of care. Objective - Vital Signs Vital signs: Vital Signs Temp 98.1 F 10/21/21 08:21 Pulse 68 10/21/21 11:32 Resp 19 10/21/21 08:21 BP 182/76 10/21/21 08:21 Pulse Ox 93 L 10/21/21 08:21 Intake & Output 10/20/21 10/21/21 10/21/21 18:59 06:59 18:59 Intake Total 240 240 Output Total 1225 1200 Balance -985 -1200 240 Weight 111 kg Intake: Oral 240 240 Output: Urine 1225 1200 Other: Voiding Method Urinal Urinal # Voids 2 - Labs CBC & Chem 7: 10/20/21 08:25 10/21/21 06:45 Labs: Abnormal Lab Results - Last 24 Hours (Table) 10/20/21 10/20/21 10/21/21 Range/Units 16:15 19:54 06:04 Creatinine (0.66-1.25) mg/dL POC Glucose (mg/dL) 107 H 153 H 155 H (75-99) mg/dL 10/21/21 10/21/21 Range/Units 06:45 11:29 Creatinine 0.64 L (0.66-1.25) mg/dL POC Glucose (mg/dL) 143 H (75-99) mg/dL Microbiology - Last 24 Hours (Table) 10/18/21 23:30 Nasal Screen MRSA/MSSA - Final Nasal Swab
--- NOTE | 2021-10-21 13:37 | P.PN ---
Subjective Progress Note Date: 10/21/21 76-year-old male with a history of COPD, who presents to the emergency department on October 13, complaining of shortness of breath. On today's evaluation of 10/17/2021, the patient is being seen for a follow-up. Is a 76-year-old male patient with known history of COPD with previous bouts of pneumonias. The patient came into the hospital because of another bout of bilateral pneumonia with extensive consolidation of the right lung and some ongoing consolidation of the left lung base. The patient was quite hypoxic, supported with BiPAP, supported with IV antibiotics. The patient was also found to be in atrial fibrillation and rapid ventricular response and the patient was started on IV heparin and Cardizem drip for rate control. Noted the patient's COVID 19 testing was negative and the patient tested negative for COVID 19 infection.. Note that the patient also had a CAT scan of the chest that showed mediastinal bilateral hilar lymphadenopathy measuring up to 5.2 cm in size. This morning, the patient is still coughing. He was taken off the BiPAP and he is on 9 L about 2 by nasal cannula. He remains on DuoNeb nebulized treatment [id number]. Antibiotic coverage is with a combination of Rocephin and Zithromax. Chest x-ray from yesterday showed bilateral patchy airspace disease right more than left. The white cell count remains elevated at 24.6 with a hemoglobin of 11.9. Platelets of 277. The patient's PTT is therapeutic at 68. Electrodes are normal. No function is normal. Legionella urine antigen has been negative. The pro calcitonin level has not been checked in the level was sent. Troponin peaked at 1.7-1.2. On 10/18/2021, the patient is still having difficulties with breathing. He was on BiPAP throughout the night and the patient is currently on oxygen and he was placed on 4 L about 2 by nasal cannula. He is slightly short of breath and he has a congested cough. Unable to bring up much sputum. Note that I broaden his antibiotic coverage since yesterday and the patient is currently on a combination of cefepime and Zithromax. Despite extensive consolidation of the right lung, the pro calcitonin level is low at 0.06. The patient's white cell count was elevated and currently is down to 18 with a hemoglobin of 12.5 and a platelet count of 294. Electrodes are all within normal limits. A repeat chest x-ray was done today and the chest x-ray showed airspace disease similar in appearance compared to the earlier chest x-ray of 10/16/2021. There is evidence of chronic appearing rib cage deformity in the upper posterior right chest there is also apical thickening. 10/19/2021, the patient is feeling well. Cough is less congested. The patient is covered with triple antibiotics and the patient is currently on a combination of vancomycin, cefepime and Zithromax. No fever. No chills. He remains on oxygen and the patient is currently on 12-14 L high flow oxygen. The CBC still pending for now. Note that his white cell count was improving as of yesterday and was down to 18. Clinically the patient is feeling better. The BUN is at 20 with a creatinine of 0.5, sodium level is at 137. As of the electrodes are normal. Breathing is nonlabored. He has no significant sputum production. No hemoptysis or pleurisy. No altered mentation. He is weak. Note that his earlier pro calcitonin level came back at 0.06. 10/20/2021, I'm seeing the patient for a follow-up. Patient is doing well. Clinically improving. He feels less short of breath and I was able to wean down the oxygen down to 8 L of oxygen by nasal cannula. Nevertheless, the chest x- ray still showing extensive consolidation of the right lung. The patient remains on triple antibiotic coverage utilizing a combination of cefepime, Zithromax and vancomycin. No hemoptysis. No pleurisy. He has a good appetite. No nausea vomiting or diarrhea or abdominal pain. No fever. Meanwhile, the white cell count of 12.9 which is improved and her hemoglobin is at 13.2 and a platelet count is at 404. Normal creatinine. No other new complaints otherwise for now. Chest x-ray from today was noted. Oxygenation is gradually improving. 10/21/2021, she patient for a follow-up. Clinically doing well. I weaning down to 6 L approximately nasal cannula. He remains on the same antibiotic coverage and the patient is receiving triple antibiotic coverage including a combination of cefepime, Zithromax and vancomycin. He is also on IV Solu-Medrol 40 mg every 8 hours. The patient on DuoNeb nebulized she was [id number]. Using incentive spirometer. Sitting up on a chair. No altered mentation. No hemoptysis or pleurisy. The patient's blood work from yesterday was noted. Nothing new from today. Cultures are negative. The follow-up chest x-ray will be ordered for tomorrow. Oxygenation is gradually improving for now. Objective - Vital Signs Vital signs: Vital Signs Temp 98.1 F 10/21/21 08:21 Pulse 67 10/21/21 11:40 Resp 19 10/21/21 08:21 BP 182/76 10/21/21 08:21 Pulse Ox 93 L 10/21/21 08:21 Intake & Output 10/20/21 10/21/21 10/21/21 18:59 06:59 18:59 Intake Total 240 480 Output Total 1225 1200 Balance -985 -1200 480 Weight 111 kg Intake: Oral 240 480 Output: Urine 1225 1200 Other: Voiding Method Urinal Urinal Urinal # Voids 2 1 - Exam GENERAL EXAM: Alert, very pleasant 76-year-old gentleman, on 6 L O2 by nasal cannula. The patient is on no BiPAP. HEAD: Normocephalic. EYES: Normal reaction of pupils, equal size. NOSE: Clear with pink turbinates. THROAT: No erythema or exudates. NECK: No masses, no JVD. CHEST: No chest wall deformity. LUNGS: Equal air entry with coarse bilateral rhonchi, crackles in the mid and lower lung taylor bilaterally more so on the right and there is diminished breath sounds along with scattered expiratory wheezes. CVS: S1 and S2 normal with no audible murmur, regular rhythm. ABDOMEN: No hepatosplenomegaly, normal bowel sounds, no guarding or rigidity. SPINE: No scoliosis or deformity SKIN: No rashes CENTRAL NERVOUS SYSTEM: No focal deficits, tone is normal in all 4 extremities. EXTREMITIES: There is no peripheral edema. No clubbing, no cyanosis. Peripheral pulses are intact. - Labs CBC & Chem 7: 10/20/21 08:25 10/21/21 06:45 Labs: Abnormal Lab Results - Last 24 Hours (Table) 10/20/21 10/20/21 10/21/21 Range/Units 16:15 19:54 06:04 Creatinine (0.66-1.25) mg/dL POC Glucose (mg/dL) 107 H 153 H 155 H (75-99) mg/dL 10/21/21 10/21/21 Range/Units 06:45 11:29 Creatinine 0.64 L (0.66-1.25) mg/dL POC Glucose (mg/dL) 143 H (75-99) mg/dL Microbiology - Last 24 Hours (Table) 10/18/21 23:30 Nasal Screen MRSA/MSSA - Final Nasal Swab Assessment and Plan Plan: 1 acute hypoxic respiratory failure second to bilateral pneumonia right more than left. This is most likely a bacterial infection. COVID 19 evaluation came back negative and the patient had a negative Legionella urine antigen. The patient remains on broad-spectrum antibiotics. The patient is currently off the BiPAP and the patient is currently on 6 L of O2 by nasal cannula. Chest x-ray still showing extensive amount consolidation on the right. No major improvement in the chest x-ray. Clinically however the patient is improving. Patient feels improved. He is less short of breath. The white cell count was also improving. A repeat chest x-ray will be obtained for tomorrow. 2 acute non-ST segment elevation myocardial infarction, currently off IV heparin and the patient was started on long-term and to coagulation with Eliquis 5 mg by mouth twice a day. 3 acute kidney injury, improving 2 acute atrial fibrillation with rapid ventricular response , rate is controlled and the patient is on amiodarone 400 mg by mouth twice a day, metoprolol 50 mg by mouth 3 times a day and the patient is on long-term and coagulation with Eliquis. 3 dyspnea secondary to above 4 History of COPD. 5 History of hypertension. 6 History of obstructive sleep apnea syndrome. 7 History of skin cancer. 8 Prior history of pneumonia.the patient's previous cultures from 04/02/2019 was strep pneumonia and pseudomonas aeruginosa. 9 Prior history of tobacco use. 10 leukocytosis, improving Plan: Repeat chest x-ray in a.m. Continue IV cefepime and Zithromax and vancomycin Wean down the FiO2 as tolerated currently on 6 L of oxygen by nasal cannula Chest x-ray from today was reviewed Leukocytosis improving Repeat labs in a.m. Continued on DuoNeb inhalations Pulmicort and Perforomist IV Solu-Medrol Anticoagulations with Dilma Instrumental Musician of the case regarding the acute non-STEMI We'll continue to follow
[2021-10-21 16:28] LABS: Glucose,Whole Blood 119 mg/dL (75-99)
[2021-10-21] MEDS: SERTRALINE 100 MG TAB PO SCH (17:07)
--- NOTE | 2021-10-21 17:23 | P.PN ---
Progress Note - Text Progress Note Date: 10/21/21 Chief Complaint: Short of breath Hospital course This is a pleasant 76-year-old patient of Dr. Sultana. Chronic stable medical conditions include hypertension, obstructive sleep apnea, DJD, obesity. Depression, Patient presented increasing shortness of breath for 1 week, wheezing. Cough fever periods Sputum Production. Decrease Appetite Tired Rundown. Symptoms Became Progressively Worse. Found to Pulse Ox of 75% in the ER. Put on a BiPAP. Antibiotics. Bronchodilators. Admitted with bilateral pneumonia right greater than left, atrial fibrillation rapid ventricular rate, sepsis, COPD exacerbation. Started on IV cefepime, bronchodilators, IV steroids, IV heparin, IV Cardizem drip. Patient requiring BiPAP. Patient was changed over from IV heparin to eliquis. Beta blockers added. October 17: Breathing better. Decreased sputum production. On 12 L high flow nasal cannula. Had about half his breakfast. Not much appetite for lunch. Requested the patient sit up in a chair. Tired. Patient has been in sinus rhythm. October 18: Remains tired, short of breath. 12 L nasal cannula. Eating some. Vancomycin added by pulmonary. October 19: Tired. Short of breath. Remains on high flow nasal cannula. Intermittent BiPAP. Oral intake very well. Cough. I did today atrial fibrillation with rapid ventricular rate. Lopressor increased to 50 mg 3 times a day by cardiology. October 20: Feeling better. Sitting at the edge of the bed. 8 on his lunch. On 11 L nasal cannula. Patient is in sinus rhythm. Patient was started on oral amiodarone and oral Cardizem yesterday. October 21: Sitting of the edge of the bed. Eating better. 10 liters nasal cannula. Some cough. Sinus rhythm. Review of systems: Was done for constitutional, cardiovascular, GI, pulmonary. relevant finding as above Active Medications Acetaminophen (Acetaminophen Tab 325 Mg Tab) 650 mg PO Q6HR PRN PRN Reason: Mild Pain or Fever > 100.5 Hydrocodone Bitart/Acetaminophen (Hydrocodone/Apap 10-325mg 1 Each Tab) 1 each PO Q8HR PRN PRN Reason: Pain Hydrocodone Bitart/Acetaminophen (Hydrocodone/Apap 10-325mg 1 Each Tab) 1 each PO Q6H [facility] Last Admin: 10/21/21 13:33 Dose: 1 each Documented by: Albuterol/Ipratropium (Ipratropium-Albuterol 3 Ml Neb) 3 ml INHALATION RT-Q4H PRN PRN Reason: Shortness Of Breath Or Wheezing Last Admin: 10/17/21 11:28 Dose: 3 ml Documented by: Albuterol/Ipratropium (Ipratropium-Albuterol 3 Ml Neb) 3 ml INHALATION RT-QID [facility] Last Admin: 10/21/21 16:29 Dose: 3 ml Documented by: Alprazolam (Alprazolam 0.25 Mg Tab) 0.25 mg PO Q6HR PRN PRN Reason: Anxiety Last Admin: 10/19/21 21:30 Dose: 0.25 mg Documented by: Amiodarone HCl (Amiodarone 200 Mg Tab) 400 mg PO BID [facility] Last Admin: 10/21/21 09:33 Dose: 400 mg Documented by: Apixaban (Apixaban 5 Mg Tab) 5 mg PO BID [facility]; Protocol Last Admin: 10/21/21 09:33 Dose: 5 mg Documented by: Aspirin (Aspirin 81 Mg) 81 mg PO DAILY [facility] Last Admin: 10/21/21 09:32 Dose: 81 mg Documented by: Atorvastatin Calcium (Atorvastatin 80 Mg Tab) 80 mg PO HS [facility] Last Admin: 10/20/21 20:06 Dose: 80 mg Documented by: Azithromycin (Azithromycin 500 Mg Tab) 500 mg PO DAILY [facility] Last Admin: 10/21/21 09:33 Dose: 500 mg Documented by: Budesonide (Budesonide 1 Mg/2 Ml Nebu) 1 mg INHALATION RT-BID [facility] Last Admin: 10/21/21 07:40 Dose: 1 mg Documented by: Calcium Carbonate/Glycine (Calcium Carbonate 500 Mg Chewable) 1,000 mg PO Q4HR PRN PRN Reason: Dyspepsia Last Admin: 10/14/21 18:02 Dose: 1,000 mg Documented by: Diltiazem HCl (Diltiazem Oral 30 Mg Tab) 30 mg PO TID [facility] Last Admin: 10/21/21 17:05 Dose: 30 mg Documented by: Famotidine (Famotidine 20 Mg Tab) 20 mg PO DAILY [facility] Last Admin: 10/21/21 09:32 Dose: 20 mg Documented by: Formoterol Fumarate (Formoterol Fumarate 20 Mcg/2 Ml Nebu) 20 mcg INHALATION RT-BID [facility] Last Admin: 10/21/21 07:40 Dose: 20 mcg Documented by: Furosemide (Furosemide 20 Mg Tab) 20 mg PO DAILY [facility] Last Admin: 10/21/21 09:33 Dose: 20 mg Documented by: Guaifenesin/Dextromethorphan (Guaifenesin-Dm 100-10mg/5ml 10 Ml Cup) 10 ml PO Q6HR PRN PRN Reason: Cough Sodium Chloride (Saline 0.9%) 1,000 mls @ 50 mls/hr IV .Q20H [facility] Last Admin: 10/20/21 18:20 Dose: 50 mls/hr Documented by: Cefepime HCl 2 gm/ Sodium (Chloride) 100 mls @ 25 mls/hr IVPB Q12HR [facility] Last Admin: 10/21/21 09:33 Dose: 25 mls/hr Documented by: Vancomycin HCl 1,750 mg/ (Sodium Chloride) 500 mls @ 167 mls/hr IVPB Q16H [facility] Last Admin: 10/21/21 03:16 Dose: 167 mls/hr Documented by: Insulin Aspart (Insulin Aspart (Novolog) 100 Unit/Ml Vial) 0 unit SQ ACHS [facility]; Protocol Last Admin: 10/21/21 16:45 Dose: Not Given Documented by: Lactulose (Lactulose 20 Gm/30 Ml Cup) 20 gm PO DAILY PRN PRN Reason: Constipation Lisinopril (Lisinopril 10 Mg Tab) 10 mg PO BID [facility] Last Admin: 10/21/21 09:35 Dose: 10 mg Documented by: Lorazepam (Lorazepam 2 Mg/Ml Inj) 0.5 mg IV Q8HR PRN PRN Reason: Anxiety Last Admin: 10/15/21 09:14 Dose: 0.5 mg Documented by: Melatonin (Melatonin 3 Mg Tablet) 3 mg PO HS PRN PRN Reason: Insomnia Methylprednisolone Sodium Succinate (Methylprednisolone Sod Succi 40 Mg/Ml 1 Ml Vial) 40 mg IV Q8HR [facility] Last Admin: 10/21/21 17:01 Dose: 40 mg Documented by: Metoprolol Tartrate (Metoprolol Tartrate 50 Mg Tab) 50 mg PO TID [facility] Last Admin: 10/21/21 17:06 Dose: 50 mg Documented by: Miscellaneous Information (Vancomycin Trough Due 1 Each Misc) 1 each MISCELLANE ONCE ONE Stop: 10/22/21 11:01 Morphine Sulfate (Morphine Sulfate Er 15 Mg Tablet) 15 mg PO BID@0600,1600 [facility]; Protocol Last Admin: 10/21/21 17:06 Dose: 15 mg Documented by: Naloxone HCl (Naloxone 0.4 Mg/Ml 1 Ml Vial) 0.2 mg IV Q2M PRN PRN Reason: Opioid Reversal Ondansetron HCl (Ondansetron 4 Mg/2 Ml Vial) 4 mg IVP Q8HR PRN PRN Reason: Nausea And Vomiting Pramipexole Dihydrochloride (Pramipexole 1 Mg Tab) 1 mg PO BID@0600,1600 [facility] Last Admin: 10/21/21 06:23 Dose: 1 mg Documented by: Sertraline HCl (Sertraline 100 Mg Tab) 100 mg PO DAILY@1600 [facility] Last Admin: 10/21/21 17:07 Dose: 100 mg Documented by: Sodium Chloride (Sodium Chloride 0.65% Nasal [place] 44 Ml Btl) 2 spray NASAL QID PRN PRN Reason: Congestion Past medical history to include: COPD, hypertension, obstructive sleep apnea, DJD, skin cancer Social history: . Smoked for 30 years stopped in 1979. Family history: Reviewed, noncontributory to presentation Physical examination: VITAL SIGNS: 98.3, 79, 16, 1:30/63, 93% on 2 L GENERAL:, Sitting up at the edge of the bed, eating EYES: Pupils equal. Conjunctiva normal. HEENT: External appearance of nose and ears normal, oral cavity grossly normal. NECK: JVD unable to assess; masses not palpable. HEART: First and second heart sounds are normal; no edema. LUNGS: Respiratory rate increased decreased breath sounds, ABDOMEN: Soft, nontender, liver spleen not palpable, no masses palpable. PSYCH: Alert and oriented x3; mood and affect better MUSCULOSKELETAL:No Clubbing/cyanosis;muscles-grossly intact INVESTIGATIONS, reviewed in the clinical context: October 21: Creatinine 0.64 October 20: White count 12.9 hemoglobin 13.2 platelets 404 potassium 4.4 creatinine 0.5 to October 19: Potassium 4.5 crit 0.5 October 18: White count 18 hemoglobin 12.5 potassium 4.3 creatinine 0.61 October 17: White count 24.6 hemoglobin 11.9 platelets 277 sodium 141 potassium 4.2 creatinine 0.67. Pro-calcitonin 0.06 Chest x-ray film personally reviewed by me-[October 16] significant right-sided infiltrates White count 25.6 hemoglobin 15.9 platelets 324 increased neutrophils d-dimer 7.48 sodium 138 potassium 4.2. 38 creatinine 1.53 lactic acid 3.8 Troponin I 2.0, 1.7, 1.2 Coronavirus [PCR]: Not detected EKG tracing personally reviewed by me-atrial fibrillation ST-T wave changes, rate 138 Chest angiogram chest: Moderate emphysema. Extensive patchy and confluent consolidation throughout the right lung. Some of the left side 2. Hilar lymphadenopathy. Chest x-ray film personally reviewed by me-extensive infiltrate on the right mid zone and some on the left side Assessment and plan: -Severe pneumonia predominantly right-sided gram-negative organism: Slow to respond Cefepime 2 g every 12 hour. IV vancomycin -Severe sepsis from pneumonia: Better IV fluids. Antibiotics. -Paroxysmal Atrial fibrillation rapid ventricular rate on presentation. Back in sinus rhythm Beta valente. [Received: IV heparin. IV Cardizem drip] Eliquis, Lopressor 50 mg 3 times a day. By mouth Cordarone. Cardizem 30 mg 3 times a day IV heparin monitoring: Discontinued Follow PTT -Acute COPD exacerbation in a prior smoker: Slow to respond DuoNeb. IV Solu-Medrol -Acute severe hypoxic respiratory failure from pneumonia: Slow to respond Intermittent BiPAP. 10 L high flow nasal cannula -Essential hypertension Zestril 10 mg daily Lopressor 50 mg 3 times a day. Cardizem 30 mg 3 times a day -Restless leg syndrome Mirapex 1 mg twice a day -Depression Zoloft 100 mg daily Primary osteoarthritis multiple joints bilaterally [place] 10 every 6 IV cefepime. IV vancomycin. IV Solu-Medrol. Bronchodilators. Patient remains in sinus rhythm. 10 L nasal cannula. Discussed with patient. Use incentive spirometry.
[2021-10-21] MEDS: SODIUM CHLORIDE 0.9% 1,000 ML IV SCH (17:58)
[2021-10-21 21:03] LABS: Glucose,Whole Blood 135 mg/dL (75-99)
[2021-10-21] MEDS: ATORVASTATIN 80 MG TAB PO SCH (22:05)
[2021-10-22] MEDS: HYDROcodone/APAP 10-325MG 1 EACH TAB PO SCH ×4 (00:13→17:34)
[2021-10-22] MEDS: methylPREDNISolone SOD SUCCI 40 MG/ML 1 ML VIAL IV SCH ×3 (00:13→15:52)
[2021-10-22 06:05] LABS: Glucose,Whole Blood 108 mg/dL (75-99)
[2021-10-22] MEDS: PRAMIPEXOLE 1 MG TAB PO SCH ×2 (06:51→17:35)
[2021-10-22] MEDS: MORPHINE SULFATE ER 15 MG TABLET PO SCH ×2 (06:51→15:51)
[2021-10-22] MEDS: INSULIN ASPART (NovoLOG) 100 UNIT/ML VIAL SQ SCH ×4 (06:52→20:54)
--- NOTE | 2021-10-22 07:15 | XR ---
EXAMINATION TYPE: XR chest 1V DATE OF EXAM: 10/22/2021 CLINICAL HISTORY: Difficulty breathing progress study. TECHNIQUE: Single AP portable upright view of the chest is obtained. COMPARISON: Chest x-ray from 2 days earlier and older studies. CTA chest October 13, 2021 FINDINGS: Osseous structures are demineralized. Advanced degenerative change left greater than right bilateral glenohumeral joints redemonstrated. Multiple old healed upper rib fractures redemonstrated . Persistent cardiomegaly. Chronic parenchymal changes with confluent increased right mid to lower lung opacity and scattered le ft-sided opacities redemonstrated. IMPRESSION: Chronic emphysematous and parenchymal fibrotic changes along with cardiomegaly redemonstr ated. Persistent right mid to lower lung pneumonic consolidation along with patchy multifocal left yvette ng acute infiltrates are redemonstrated. No significant change from most recent x-ray.
[2021-10-22] MEDS: IPRATROPIUM-ALBUTEROL 3 ML NEB INHALATION SCH ×4 (07:46→20:15)
[2021-10-22] MEDS: BUDESONIDE 1 MG/2 ML NEBU INHALATION SCH ×2 (07:46→20:15)
[2021-10-22] MEDS: FORMOTEROL FUMARATE 20 MCG/2 ML NEBU INHALATION SCH ×2 (07:46→20:15)
[2021-10-22] MEDS: CEFEPIME 2 GM in SODIUM CHLORIDE 0.9% 100 ML IVPB SCH ×2 (09:36→21:25)
[2021-10-22] MEDS: FUROSEMIDE 20 MG TAB PO SCH (09:37)
[2021-10-22] MEDS: AMIODARONE 200 MG TAB PO SCH ×2 (09:37→21:24)
[2021-10-22] MEDS: ASPIRIN 81 MG PO SCH (09:37)
[2021-10-22] MEDS: APIXABAN 5 MG TAB PO SCH ×2 (09:37→21:25)
[2021-10-22] MEDS: lisinopriL 10 MG TAB PO SCH ×2 (09:37→21:24)
[2021-10-22] MEDS: FAMOTIDINE 20 MG TAB PO SCH (09:37)
[2021-10-22] MEDS: AZITHROMYCIN 500 MG TAB PO SCH (09:37)
[2021-10-22] MEDS: METOPROLOL TARTRATE 50 MG TAB PO SCH ×3 (09:37→21:28)
[2021-10-22] MEDS: DILTIAZEM ORAL 30 MG TAB PO SCH ×3 (09:37→21:24)
[2021-10-22] MEDS: SODIUM CHLORIDE 0.9% 1,000 ML IV SCH (09:41)
[2021-10-22] MEDS ORDERED: VANCOMYCIN TROUGH DUE 1 EACH MISC MISCELLANE ONE (11:00)
--- NOTE | 2021-10-22 11:09 | P.PN ---
Subjective Progress Note Date: 10/22/21 PROGRESS NOTE The patient is a 76-year-old male who presented with pneumonia and paroxysmal atrial fibrillation. He is feeling better today, he continues to cough. He denies any chest discomfort, dizziness or palpitations. He is back in atrial fibrillation, with controlled ventricular response. He has no significant edema. He has no fever or wheezing, he denies any nausea or vomiting. He continues to be on amiodarone 400 mg twice a day, Eliquis is 5 mg twice a day, Cardizem 30 mg 3 times a day and metoprolol 50 mg 3 times a day. PHYSICAL EXAMINATION: Blood pressure [128/80] heart rate [in the high 90s] LUNGS: [Crackles on the right side] HEART: Irregular rate and rhythm, S1, S2. No S3. systolic murmur at the base] ABDOMEN: [Soft, nontender, no organomegaly, obese] EXTREMETIES: [No edema] IMPRESSION: 1. [ Acute hypoxemia secondary to pneumonia] 2. [ Paroxysmal atrial fibrillation, anticoagulated, rate controlled] 3. [ Troponin elevation most likely related to the hypoxemia and the infection] 4. [ History of hypertension] PLAN: 1. [ Continue anticoagulation with amiodarone, beta valente and calcium channel valente] 2. [ Treatment of pneumonia per Dr. Lovelace, patient may require bronchoscopy for further evaluation] 3. [ Increase physical activity] 4. [ Follow renal functions] 5. [ Depending on his progress further recommendations will be made] Objective - Vital Signs Vital signs: Vital Signs Temp 97.3 F L 10/22/21 09:55 Pulse 101 H 10/22/21 09:57 Resp 18 10/22/21 09:55 BP 128/88 10/22/21 09:55 Pulse Ox 92 L 10/22/21 09:55 Intake & Output 10/21/21 10/22/21 10/22/21 18:59 06:59 18:59 Intake Total 622 865 0431 Output Total 1000 325 Balance 960 -600 695 Weight 111 kg Intake: IV 240 .9@10 x2 240 Intake, IV Titration 600 Amount Cefepime 2 gm In Sodium 100 Chloride 0.9% 100 ml @ 25 mls/hr IVPB Q12HR [facility] Rx #:[id number] Vancomycin 1,750 mg In 500 Sodium Chloride 0.9% 500 ml 500 ml @ 167 mls/hr IVPB Q16H [facility] Rx#: [id number] Oral 960 400 180 Output: Urine 1000 325 Other: Voiding Method Urinal Urinal Urinal # Voids 1 - Labs CBC & Chem 7: 10/20/21 08:25 10/21/21 06:45 Labs: Abnormal Lab Results - Last 24 Hours (Table) 10/21/21 10/21/21 10/21/21 Range/Units 11:29 16:26 20:50 POC Glucose (mg/dL) 143 H 119 H 135 H (75-99) mg/dL 10/22/21 Range/Units 06:04 POC Glucose (mg/dL) 108 H (75-99) mg/dL
[2021-10-22 11:28] LABS: African American GFR (CKD) >90 (>60 ml/min/1.73 sqM); Non-African American GFR(CKD) >90 (>60 ml/min/1.73 sqM)
[2021-10-22 11:32] LABS: Glucose,Whole Blood 166 mg/dL (75-99)
[2021-10-22] MEDS: VANCOMYCIN 1,750 MG in SODIUM CHLORIDE 0.9% 500 ML 500 ML IVPB SCH (12:17)
--- NOTE | 2021-10-22 12:59 | P.PN ---
Subjective Progress Note Date: 10/22/21 76-year-old male with a history of COPD, who presents to the emergency department on October 13, complaining of shortness of breath. On today's evaluation of 10/17/2021, the patient is being seen for a follow-up. Is a 76-year-old male patient with known history of COPD with previous bouts of pneumonias. The patient came into the hospital because of another bout of bilateral pneumonia with extensive consolidation of the right lung and some ongoing consolidation of the left lung base. The patient was quite hypoxic, supported with BiPAP, supported with IV antibiotics. The patient was also found to be in atrial fibrillation and rapid ventricular response and the patient was started on IV heparin and Cardizem drip for rate control. Noted the patient's COVID 19 testing was negative and the patient tested negative for COVID 19 infection.. Note that the patient also had a CAT scan of the chest that showed mediastinal bilateral hilar lymphadenopathy measuring up to 5.2 cm in size. This morning, the patient is still coughing. He was taken off the BiPAP and he is on 9 L about 2 by nasal cannula. He remains on DuoNeb nebulized treatment [id number]. Antibiotic coverage is with a combination of Rocephin and Zithromax. Chest x-ray from yesterday showed bilateral patchy airspace disease right more than left. The white cell count remains elevated at 24.6 with a hemoglobin of 11.9. Platelets of 277. The patient's PTT is therapeutic at 68. Electrodes are normal. No function is normal. Legionella urine antigen has been negative. The pro calcitonin level has not been checked in the level was sent. Troponin peaked at 1.7-1.2. On 10/18/2021, the patient is still having difficulties with breathing. He was on BiPAP throughout the night and the patient is currently on oxygen and he was placed on 4 L about 2 by nasal cannula. He is slightly short of breath and he has a congested cough. Unable to bring up much sputum. Note that I broaden his antibiotic coverage since yesterday and the patient is currently on a combination of cefepime and Zithromax. Despite extensive consolidation of the right lung, the pro calcitonin level is low at 0.06. The patient's white cell count was elevated and currently is down to 18 with a hemoglobin of 12.5 and a platelet count of 294. Electrodes are all within normal limits. A repeat chest x-ray was done today and the chest x-ray showed airspace disease similar in appearance compared to the earlier chest x-ray of 10/16/2021. There is evidence of chronic appearing rib cage deformity in the upper posterior right chest there is also apical thickening. 10/19/2021, the patient is feeling well. Cough is less congested. The patient is covered with triple antibiotics and the patient is currently on a combination of vancomycin, cefepime and Zithromax. No fever. No chills. He remains on oxygen and the patient is currently on 12-14 L high flow oxygen. The CBC still pending for now. Note that his white cell count was improving as of yesterday and was down to 18. Clinically the patient is feeling better. The BUN is at 20 with a creatinine of 0.5, sodium level is at 137. As of the electrodes are normal. Breathing is nonlabored. He has no significant sputum production. No hemoptysis or pleurisy. No altered mentation. He is weak. Note that his earlier pro calcitonin level came back at 0.06. 10/20/2021, I'm seeing the patient for a follow-up. Patient is doing well. Clinically improving. He feels less short of breath and I was able to wean down the oxygen down to 8 L of oxygen by nasal cannula. Nevertheless, the chest x- ray still showing extensive consolidation of the right lung. The patient remains on triple antibiotic coverage utilizing a combination of cefepime, Zithromax and vancomycin. No hemoptysis. No pleurisy. He has a good appetite. No nausea vomiting or diarrhea or abdominal pain. No fever. Meanwhile, the white cell count of 12.9 which is improved and her hemoglobin is at 13.2 and a platelet count is at 404. Normal creatinine. No other new complaints otherwise for now. Chest x-ray from today was noted. Oxygenation is gradually improving. 10/21/2021, she patient for a follow-up. Clinically doing well. I weaning down to 6 L approximately nasal cannula. He remains on the same antibiotic coverage and the patient is receiving triple antibiotic coverage including a combination of cefepime, Zithromax and vancomycin. He is also on IV Solu-Medrol 40 mg every 8 hours. The patient on DuoNeb nebulized she was [id number]. Using incentive spirometer. Sitting up on a chair. No altered mentation. No hemoptysis or pleurisy. The patient's blood work from yesterday was noted. Nothing new from today. Cultures are negative. The follow-up chest x-ray will be ordered for tomorrow. Oxygenation is gradually improving for now. 10/22/2021, the patient shows clinical improvement. Nevertheless, the chest x- ray still showing extensive consolidation of the right lung. Mother the patient bolus emphysema and the radiographic response to antibiotics may be somewhat suboptimal and delayed. He remains on 6 L about 2 by nasal cannula. Remains on same antibiotic coverage. Afebrile. Was recommended dropped down to 12. No nausea. No vomiting. No chest pain. No hemoptysis or pleurisy. The renal function is stable. Vancomycin trough is at 11.4. Chest x-ray from today was noted. The patient is using incentive spirometer. Tolerating his diet. Objective - Vital Signs Vital signs: Vital Signs Temp 97.3 F L 10/22/21 09:55 Pulse 101 H 10/22/21 09:57 Resp 18 10/22/21 09:55 BP 128/88 10/22/21 09:55 Pulse Ox 92 L 10/22/21 09:55 Intake & Output 10/21/21 10/22/21 10/22/21 18:59 06:59 18:59 Intake Total 227 204 2670 Output Total 1000 325 Balance 960 -600 695 Weight 111 kg Intake: IV 240 .9@10 x2 240 Intake, IV Titration 600 Amount Cefepime 2 gm In Sodium 100 Chloride 0.9% 100 ml @ 25 mls/hr IVPB Q12HR [facility] Rx #:[id number] Vancomycin 1,750 mg In 500 Sodium Chloride 0.9% 500 ml 500 ml @ 167 mls/hr IVPB Q16H [facility] Rx#: [id number] Oral 960 400 180 Output: Urine 1000 325 Other: Voiding Method Urinal Urinal Urinal # Voids 1 - Exam GENERAL EXAM: Alert, very pleasant 76-year-old gentleman, on 6 L O2 by nasal cannula. The patient is on no BiPAP. HEAD: Normocephalic. EYES: Normal reaction of pupils, equal size. NOSE: Clear with pink turbinates. THROAT: No erythema or exudates. NECK: No masses, no JVD. CHEST: No chest wall deformity. LUNGS: Equal air entry with coarse bilateral rhonchi, crackles in the mid and lower lung taylor bilaterally more so on the right and there is diminished breath sounds along with scattered expiratory wheezes. CVS: S1 and S2 normal with no audible murmur, regular rhythm. ABDOMEN: No hepatosplenomegaly, normal bowel sounds, no guarding or rigidity. SPINE: No scoliosis or deformity SKIN: No rashes CENTRAL NERVOUS SYSTEM: No focal deficits, tone is normal in all 4 extremities. EXTREMITIES: There is no peripheral edema. No clubbing, no cyanosis. Peripheral pulses are intact. - Labs CBC & Chem 7: 10/20/21 08:25 10/22/21 10:59 Labs: Abnormal Lab Results - Last 24 Hours (Table) 10/21/21 10/21/21 10/22/21 Range/Units 16:26 20:50 06:04 Creatinine (0.66-1.25) mg/dL POC Glucose (mg/dL) 119 H 135 H 108 H (75-99) mg/dL 10/22/21 10/22/21 Range/Units 10:59 11:30 Creatinine 0.58 L (0.66-1.25) mg/dL POC Glucose (mg/dL) 166 H (75-99) mg/dL Assessment and Plan Plan: 1 acute hypoxic respiratory failure second to bilateral pneumonia right more than left. This is most likely a bacterial infection. COVID 19 evaluation came back negative and the patient had a negative Legionella urine antigen. The patient remains on broad-spectrum antibiotics. The patient is currently off the BiPAP and the patient is currently on 6 L of O2 by nasal cannula. Chest x-ray still showing extensive amount consolidation on the right. No major improvement in the chest x-ray. Clinically however the patient is improving. Patient feels improved. He is less short of breath. The white cell count was also improving. A repeat chest x-ray will be obtained for tomorrow. 2 acute non-ST segment elevation myocardial infarction, currently off IV heparin and the patient was started on long-term and to coagulation with Eliquis 5 mg by mouth twice a day. 3 acute kidney injury, improving 2 acute atrial fibrillation with rapid ventricular response , rate is controlled and the patient is on amiodarone 400 mg by mouth twice a day, metoprolol 50 mg by mouth 3 times a day and the patient is on long-term and coagulation with Eliquis. 3 dyspnea secondary to above 4 History of COPD. 5 History of hypertension. 6 History of obstructive sleep apnea syndrome. 7 History of skin cancer. 8 Prior history of pneumonia.the patient's previous cultures from 04/02/2019 was strep pneumonia and pseudomonas aeruginosa. 9 Prior history of tobacco use. 10 leukocytosis, improving Plan: Clinically the patient is improving and there is gradually improving oxygenation. Repeat chest x-ray from today showing persistent consolidation of the right lung. This could be related to underlying advanced was emphysema that the patient has and the x-ray picture may be somewhat delayed. May consider b ronchoscopy later stage L is no improvement. We'll continue same antibiotic coverage for now. Keep the patient 6 L about 2 by nasal cannula gradually wean it off. White cell count is improving. Leukocytosis improving Repeat labs in a.m. Continued on DuoNeb inhalations Pulmicort and Perforomist IV Solu-Medrol Anticoagulations with [facility] Extension Service Specialist of the case regarding the acute non-STEMI We'll continue to follow
[2021-10-22] MEDS: OXYMETAZOLINE 0.05% NASL SPRAY 1 SPRAY BOTTLE NASAL SCH ×2 (15:51→21:26)
[2021-10-22] MEDS: SERTRALINE 100 MG TAB PO SCH (15:52)
--- NOTE | 2021-10-22 16:27 | P.PN ---
Progress Note - Text Progress Note Date: 10/22/21 Chief Complaint: Short of breath Hospital course This is a pleasant 76-year-old patient of Dr. Sultana. Chronic stable medical conditions include hypertension, obstructive sleep apnea, DJD, obesity. Depression, Patient presented increasing shortness of breath for 1 week, wheezing. Cough fever periods Sputum Production. Decrease Appetite Tired Rundown. Symptoms Became Progressively Worse. Found to Pulse Ox of 75% in the ER. Put on a BiPAP. Antibiotics. Bronchodilators. Admitted with bilateral pneumonia right greater than left, atrial fibrillation rapid ventricular rate, sepsis, COPD exacerbation. Started on IV cefepime, bronchodilators, IV steroids, IV heparin, IV Cardizem drip. Patient requiring BiPAP. Patient was changed over from IV heparin to eliquis. Beta blockers added. October 17: Breathing better. Decreased sputum production. On 12 L high flow nasal cannula. Had about half his breakfast. Not much appetite for lunch. Requested the patient sit up in a chair. Tired. Patient has been in sinus rhythm. October 18: Remains tired, short of breath. 12 L nasal cannula. Eating some. Vancomycin added by pulmonary. October 19: Tired. Short of breath. Remains on high flow nasal cannula. Intermittent BiPAP. Oral intake very well. Cough. I did today atrial fibrillation with rapid ventricular rate. Lopressor increased to 50 mg 3 times a day by cardiology. October 20: Feeling better. Sitting at the edge of the bed. 8 on his lunch. On 11 L nasal cannula. Patient is in sinus rhythm. Patient was started on oral amiodarone and oral Cardizem yesterday. October 21: Sitting of the edge of the bed. Eating better. 10 liters nasal cannula. Some cough. Sinus rhythm. October 22: Oral intake fair. Feels dryness of the nose and blockage of the nostril. A few nasal drops ordered. 9 L nasal cannula. Back in atrial fibrillation, rate controlled. Cough present. Nasal screen negative for MRSA. Review of systems: Was done for constitutional, cardiovascular, GI, pulmonary. relevant finding as above Active Medications Acetaminophen (Acetaminophen Tab 325 Mg Tab) 650 mg PO Q6HR PRN PRN Reason: Mild Pain or Fever > 100.5 Hydrocodone Bitart/Acetaminophen (Hydrocodone/Apap 10-325mg 1 Each Tab) 1 each PO Q8HR PRN PRN Reason: Pain Hydrocodone Bitart/Acetaminophen (Hydrocodone/Apap 10-325mg 1 Each Tab) 1 each PO Q6H [facility] Last Admin: 10/22/21 12:19 Dose: 1 each Documented by: Albuterol/Ipratropium (Ipratropium-Albuterol 3 Ml Neb) 3 ml INHALATION RT-Q4H PRN PRN Reason: Shortness Of Breath Or Wheezing Last Admin: 10/17/21 11:28 Dose: 3 ml Documented by: Albuterol/Ipratropium (Ipratropium-Albuterol 3 Ml Neb) 3 ml INHALATION RT-QID [facility] Last Admin: 10/22/21 15:45 Dose: 3 ml Documented by: Alprazolam (Alprazolam 0.25 Mg Tab) 0.25 mg PO Q6HR PRN PRN Reason: Anxiety Last Admin: 10/19/21 21:30 Dose: 0.25 mg Documented by: Amiodarone HCl (Amiodarone 200 Mg Tab) 400 mg PO BID [facility] Last Admin: 10/22/21 09:37 Dose: 400 mg Documented by: Apixaban (Apixaban 5 Mg Tab) 5 mg PO BID [facility]; Protocol Last Admin: 10/22/21 09:37 Dose: 5 mg Documented by: Aspirin (Aspirin 81 Mg) 81 mg PO DAILY [facility] Last Admin: 10/22/21 09:37 Dose: 81 mg Documented by: Atorvastatin Calcium (Atorvastatin 80 Mg Tab) 80 mg PO HS [facility] Last Admin: 10/21/21 22:05 Dose: 80 mg Documented by: Budesonide (Budesonide 1 Mg/2 Ml Nebu) 1 mg INHALATION RT-BID [facility] Last Admin: 10/22/21 07:46 Dose: 1 mg Documented by: Calcium Carbonate/Glycine (Calcium Carbonate 500 Mg Chewable) 1,000 mg PO Q4HR PRN PRN Reason: Dyspepsia Last Admin: 10/14/21 18:02 Dose: 1,000 mg Documented by: Diltiazem HCl (Diltiazem Oral 30 Mg Tab) 30 mg PO TID [facility] Last Admin: 10/22/21 15:52 Dose: 30 mg Documented by: Famotidine (Famotidine 20 Mg Tab) 20 mg PO DAILY [facility] Last Admin: 10/22/21 09:37 Dose: 20 mg Documented by: Formoterol Fumarate (Formoterol Fumarate 20 Mcg/2 Ml Nebu) 20 mcg INHALATION RT-BID [facility] Last Admin: 10/22/21 07:46 Dose: 20 mcg Documented by: Furosemide (Furosemide 20 Mg Tab) 20 mg PO DAILY [facility] Last Admin: 10/22/21 09:37 Dose: 20 mg Documented by: Guaifenesin/Dextromethorphan (Guaifenesin-Dm 100-10mg/5ml 10 Ml Cup) 10 ml PO Q6HR PRN PRN Reason: Cough Sodium Chloride (Saline 0.9%) 1,000 mls @ 50 mls/hr IV .Q20H [facility] Last Admin: 10/22/21 09:41 Dose: 50 mls/hr Documented by: Cefepime HCl 2 gm/ Sodium (Chloride) 100 mls @ 25 mls/hr IVPB Q12HR [facility] Last Admin: 10/22/21 09:36 Dose: 25 mls/hr Documented by: Vancomycin HCl 1,750 mg/ (Sodium Chloride) 500 mls @ 167 mls/hr IVPB Q12H [facility] Insulin Aspart (Insulin Aspart (Novolog) 100 Unit/Ml Vial) 0 unit SQ ACHS [facility]; Protocol Last Admin: 10/22/21 12:19 Dose: 3 unit Documented by: Lactulose (Lactulose 20 Gm/30 Ml Cup) 20 gm PO DAILY PRN PRN Reason: Constipation Lisinopril (Lisinopril 10 Mg Tab) 10 mg PO BID [facility] Last Admin: 10/22/21 09:37 Dose: 10 mg Documented by: Lorazepam (Lorazepam 2 Mg/Ml Inj) 0.5 mg IV Q8HR PRN PRN Reason: Anxiety Last Admin: 10/15/21 09:14 Dose: 0.5 mg Documented by: Melatonin (Melatonin 3 Mg Tablet) 3 mg PO HS PRN PRN Reason: Insomnia Last Admin: 10/22/21 00:13 Dose: 3 mg Documented by: Methylprednisolone Sodium Succinate (Methylprednisolone Sod Succi 40 Mg/Ml 1 Ml Vial) 40 mg IV Q8HR [facility] Last Admin: 10/22/21 15:52 Dose: 40 mg Documented by: Metoprolol Tartrate (Metoprolol Tartrate 50 Mg Tab) 50 mg PO TID [facility] Last Admin: 10/22/21 15:52 Dose: 50 mg Documented by: Morphine Sulfate (Morphine Sulfate Er 15 Mg Tablet) 15 mg PO BID@0600,1600 [facility]; Protocol Last Admin: 10/22/21 15:51 Dose: 15 mg Documented by: Naloxone HCl (Naloxone 0.4 Mg/Ml 1 Ml Vial) 0.2 mg IV Q2M PRN PRN Reason: Opioid Reversal Ondansetron HCl (Ondansetron 4 Mg/2 Ml Vial) 4 mg IVP Q8HR PRN PRN Reason: Nausea And Vomiting Oxymetazoline HCl (Oxymetazoline 0.05% Nasl Orr 1 Orr Bottle) 2 spray NASAL BID [facility] Last Admin: 10/22/21 15:51 Dose: 2 spray Documented by: Pramipexole Dihydrochloride (Pramipexole 1 Mg Tab) 1 mg PO BID@0600,1600 [facility] Last Admin: 10/22/21 06:51 Dose: 1 mg Documented by: Sertraline HCl (Sertraline 100 Mg Tab) 100 mg PO DAILY@1600 [facility] Last Admin: 10/22/21 15:52 Dose: 100 mg Documented by: Sodium Chloride (Sodium Chloride 0.65% Nasal Orr 44 Ml Btl) 2 spray NASAL QID PRN PRN Reason: Congestion Past medical history to include: COPD, hypertension, obstructive sleep apnea, DJD, skin cancer Social history: . Smoked for 30 years stopped in 1979. Family history: Reviewed, noncontributory to presentation Physical examination: VITAL SIGNS: 98.8, 73, 22, 137/81, 94% on 9 L GENERAL:, Sitting up at the edge of the bed, breathing better EYES: Pupils equal. Conjunctiva normal. HEENT: External appearance of nose and ears normal, oral cavity grossly normal. NECK: JVD unable to assess; masses not palpable. HEART: Heart sounds irregular; no edema. LUNGS: Respiratory rate increased decreased breath sounds, ABDOMEN: Soft, nontender, liver spleen not palpable, no masses palpable. PSYCH: Alert and oriented x3; mood and affect better MUSCULOSKELETAL:No Clubbing/cyanosis;muscles-grossly intact INVESTIGATIONS, reviewed in the clinical context: October 22: Creatinine 0.58 Accu-Cheks noted. Nasal screen negative for MRSA October 21: Creatinine 0.64 October 20: White count 12.9 hemoglobin 13.2 platelets 404 potassium 4.4 creatinine 0.5 to October 19: Potassium 4.5 crit 0.5 October 18: White count 18 hemoglobin 12.5 potassium 4.3 creatinine 0.61 October 17: White count 24.6 hemoglobin 11.9 platelets 277 sodium 141 potassium 4.2 creatinine 0.67. Pro-calcitonin 0.06 Chest x-ray film personally reviewed by me-[October 16] significant right-sided infiltrates White count 25.6 hemoglobin 15.9 platelets 324 increased neutrophils d-dimer 7.48 sodium 138 potassium 4.2. 38 creatinine 1.53 lactic acid 3.8 Troponin I 2.0, 1.7, 1.2 Coronavirus [PCR]: Not detected EKG tracing personally reviewed by me-atrial fibrillation ST-T wave changes, rate 138 Chest angiogram chest: Moderate emphysema. Extensive patchy and confluent consolidation throughout the right lung. Some of the left side 2. Hilar lymphadenopathy. Chest x-ray film personally reviewed by me-extensive infiltrate on the right mid zone and some on the left side 2-D echocardiogram: EF 50-55% Assessment and plan: -Severe pneumonia predominantly right-sided gram-negative organism: Slow to respond Cefepime 2 g every 12 hour. IV vancomycin -Severe sepsis from pneumonia: Better IV fluids. Antibiotics. -Paroxysmal Atrial fibrillation rapid ventricular rate on presentation. In and out of A. fib. Currently A. fib Beta valente. [Received: IV heparin. IV Cardizem drip] Eliquis, Lopressor 50 mg 3 times a day. By mouth Cordarone. Cardizem 30 mg 3 times a day IV heparin monitoring: Discontinued Follow PTT -Acute COPD exacerbation in a prior smoker: Slow to respond DuoNeb. IV Solu-Medrol -Acute severe hypoxic respiratory failure from pneumonia: Slow to respond Intermittent BiPAP. 9 L high flow nasal cannula -Essential hypertension Zestril 10 mg daily Lopressor 50 mg 3 times a day. Cardizem 30 mg 3 times a day -Restless leg syndrome Mirapex 1 mg twice a day -Depression Zoloft 100 mg daily Primary osteoarthritis multiple joints bilaterally [place] 10 every 6 IV cefepime. IV vancomycin. IV Solu-Medrol. Bronchodilators. Back in A. fib. 10 L nasal cannula. Discussed with patient. afrin spray ordered
[2021-10-22 16:41] LABS: Glucose,Whole Blood 106 mg/dL (75-99)
[2021-10-22 20:35] LABS: Glucose,Whole Blood 134 mg/dL (75-99)
[2021-10-22] MEDS: ATORVASTATIN 80 MG TAB PO SCH (21:24)
[2021-10-23] MEDS: HYDROcodone/APAP 10-325MG 1 EACH TAB PO SCH ×5 (00:03→23:08)
[2021-10-23] MEDS: methylPREDNISolone SOD SUCCI 40 MG/ML 1 ML VIAL IV SCH ×4 (00:05→23:09)
[2021-10-23] MEDS: VANCOMYCIN 1,750 MG in SODIUM CHLORIDE 0.9% 500 ML 500 ML IVPB SCH ×3 (00:11→23:09)
[2021-10-23] MEDS: MORPHINE SULFATE ER 15 MG TABLET PO SCH ×2 (05:18→15:35)
[2021-10-23] MEDS: PRAMIPEXOLE 1 MG TAB PO SCH ×2 (05:28→15:35)
[2021-10-23 06:07] LABS: Glucose,Whole Blood 129 mg/dL (75-99)
[2021-10-23] MEDS: INSULIN ASPART (NovoLOG) 100 UNIT/ML VIAL SQ SCH ×4 (06:30→20:38)
[2021-10-23] MEDS: IPRATROPIUM-ALBUTEROL 3 ML NEB INHALATION SCH ×5 (07:11→20:00)
[2021-10-23] MEDS: FORMOTEROL FUMARATE 20 MCG/2 ML NEBU INHALATION SCH ×3 (07:11→20:00)
[2021-10-23] MEDS: BUDESONIDE 1 MG/2 ML NEBU INHALATION SCH ×3 (07:11→20:00)
[2021-10-23 07:25] LABS: HCT 45.1 % (39.0-53.0); HGB 14.1 gm/dL (13.0-17.5); Hypochromasia Slight; MCH 32.3 pg (25.0-35.0); MCHC 31.2 g/dL (31.0-37.0); MCV 103.6 fL (80.0-100.0); Macrocytosis Slight; Mean Platelet Volume 8.1; Platelet Count 489 k/uL (150-450); RBC 4.35 m/uL (4.30-5.90); RDW 14.2 % (11.5-15.5); WBC 18.3 k/uL (3.8-10.6)
[2021-10-23 07:39] LABS: African American GFR (CKD) >90 (>60 ml/min/1.73 sqM); Anion Gap 5 mmol/L; Blood Urea Nitrogen 23 mg/dL (9-20); Calcium 8.6 mg/dL (8.4-10.2); Carbon Dioxide 28 mmol/L (22-30); Chloride 105 mmol/L (98-107); Glucose 130 mg/dL (74-99); Non-African American GFR(CKD) >90 (>60 ml/min/1.73 sqM); Potassium 4.7 mmol/L (3.5-5.1); Sodium 138 mmol/L (137-145)
[2021-10-23 07:42] LABS: African American GFR (CKD) >90 (>60 ml/min/1.73 sqM); Non-African American GFR(CKD) >90 (>60 ml/min/1.73 sqM)
[2021-10-23] MEDS: CEFEPIME 2 GM in SODIUM CHLORIDE 0.9% 100 ML IVPB SCH ×2 (10:02→20:44)
[2021-10-23] MEDS: lisinopriL 10 MG TAB PO SCH ×2 (10:04→20:44)
[2021-10-23] MEDS: METOPROLOL TARTRATE 50 MG TAB PO SCH ×3 (10:04→20:44)
[2021-10-23] MEDS: DILTIAZEM ORAL 30 MG TAB PO SCH ×3 (10:04→20:44)
[2021-10-23] MEDS: APIXABAN 5 MG TAB PO SCH ×2 (10:04→20:44)
[2021-10-23] MEDS: ASPIRIN 81 MG PO SCH (10:04)
[2021-10-23] MEDS: AMIODARONE 200 MG TAB PO SCH ×2 (10:04→20:44)
[2021-10-23] MEDS: FUROSEMIDE 20 MG TAB PO SCH (10:05)
[2021-10-23] MEDS: SODIUM CHLORIDE 0.9% 1,000 ML IV SCH (10:05)
[2021-10-23] MEDS: FAMOTIDINE 20 MG TAB PO SCH (10:05)
[2021-10-23] MEDS: OXYMETAZOLINE 0.05% NASL SPRAY 1 SPRAY BOTTLE NASAL SCH ×2 (10:06→20:45)
[2021-10-23 11:46] LABS: Glucose,Whole Blood 117 mg/dL (75-99)
--- NOTE | 2021-10-23 12:14 | P.PN ---
Subjective Progress Note Date: 10/23/21 PROGRESS NOTE The patient is a 76-year-old male who presented with pneumonia and paroxysmal atrial fibrillation. He is feeling better today, he continues to cough. He denies any chest discomfort, dizziness or palpitations. He is back in atrial fibrillation, with controlled ventricular response. He has no significant edema. He has no fever or wheezing, he denies any nausea or vomiting. He continues to be on amiodarone 400 mg twice a day, Eliquis is 5 mg twice a day, Cardizem 30 mg 3 times a day and metoprolol 50 mg 3 times a day. Patient is seen on October 23, his breathing is better and his cough is productive of dark sputum. He is back in sinus mechanism. He denies any chest discomfort. He is feeling better overall with improvement in his energy. PHYSICAL EXAMINATION: Blood pressure [140/68] heart rate [70] LUNGS: [Crackles on the right side, no wheezes are noted] HEART: Regular rate and rhythm, S1, S2. No S3. systolic murmur at the base] ABDOMEN: [Soft, nontender, no organomegaly, obese] EXTREMETIES: [No edema] IMPRESSION: 1. [ Acute hypoxemia secondary to pneumonia] 2. [ Paroxysmal atrial fibrillation, anticoagulated, back in sinus mechanism 3. [ Troponin elevation most likely related to the hypoxemia and the infection] 4. [ History of hypertension] PLAN: 1. Decrease amiodarone to 200 mg twice a day 2. Increase physical activity 3. Continue telemetry 4. If he stays in sinus mechanism changed to long-acting Cardizem. Objective - Vital Signs Vital signs: Vital Signs Temp 97.8 F 10/23/21 04:00 Pulse 70 10/23/21 11:44 Resp 18 10/23/21 04:00 BP 163/82 10/23/21 04:00 Pulse Ox 93 L 10/23/21 04:00 Intake & Output 10/22/21 10/23/21 10/23/21 18:59 06:59 18:59 Intake Total 1200 Output Total 1175 400 Balance 25 -400 Intake: IV 240 .9@10 x2 240 Intake, IV Titration 600 Amount Cefepime 2 gm In Sodium 100 Chloride 0.9% 100 ml @ 25 mls/hr IVPB Q12HR [facility] Rx #:[id number] Vancomycin 1,750 mg In 500 Sodium Chloride 0.9% 500 ml 500 ml @ 167 mls/hr IVPB Q16H [facility] Rx#: [id number] Oral 360 Output: Urine 1175 400 Other: Voiding Method Urinal Urinal # Voids 1 # Bowel Movements 0 - Labs CBC & Chem 7: 10/23/21 05:43 10/23/21 05:43 Labs: Abnormal Lab Results - Last 24 Hours (Table) 10/22/21 10/22/21 10/23/21 Range/Units 16:39 20:22 05:43 WBC (3.8-10.6) k/uL MCV (80.0-100.0) fL Plt Count (150-450) k/uL BUN (9-20) mg/dL Creatinine 0.63 L (0.66-1.25) mg/dL Glucose (74-99) mg/dL POC Glucose (mg/dL) 106 H 134 H (75-99) mg/dL 10/23/21 10/23/21 10/23/21 Range/Units 05:43 05:43 05:59 WBC 18.3 H (3.8-10.6) k/uL MCV 103.6 H (80.0-100.0) fL Plt Count 489 H (150-450) k/uL BUN 23 H (9-20) mg/dL Creatinine 0.60 L (0.66-1.25) mg/dL Glucose 130 H (74-99) mg/dL POC Glucose (mg/dL) 129 H (75-99) mg/dL 10/23/21 Range/Units 11:44 WBC (3.8-10.6) k/uL MCV (80.0-100.0) fL Plt Count (150-450) k/uL BUN (9-20) mg/dL Creatinine (0.66-1.25) mg/dL Glucose (74-99) mg/dL POC Glucose (mg/dL) 117 H (75-99) mg/dL
--- NOTE | 2021-10-23 13:13 | XR ---
EXAMINATION TYPE: XR chest 1V DATE OF EXAM: 10/23/2021 CLINICAL HISTORY: Cough progress study. TECHNIQUE: Single AP portable semiupright view of the chest is obtained. COMPARISON: Chest x-ray from one day earlier and older studies. FINDINGS: Osseous structures remain demineralized. Degenerative change bilateral glenohumeral joints redemonstrated. Multiple old healed upper right rib fractures redemonstrated. Persistent cardiomegal y. Chronic parenchymal changes with confluent increased right mid to lower lung opacity silhouetting rig ht heart border and hemidiaphragm and scattered left-sided more central opacities redemonstrated. IMPRESSION: Chronic emphysematous and parenchymal fibrotic changes along with cardiomegaly redemonstr ated. Persistent right mid to lower lung pneumonic consolidation along with patchy left mid lung cent ral infiltrates are redemonstrated. No significant change from most recent x-ray.
--- NOTE | 2021-10-23 14:11 | P.PN ---
Subjective Progress Note Date: 10/23/21 76-year-old male with a history of COPD, who presents to the emergency department on October 13, complaining of shortness of breath. On today's evaluation of 10/17/2021, the patient is being seen for a follow-up. Is a 76-year-old male patient with known history of COPD with previous bouts of pneumonias. The patient came into the hospital because of another bout of bilateral pneumonia with extensive consolidation of the right lung and some ongoing consolidation of the left lung base. The patient was quite hypoxic, supported with BiPAP, supported with IV antibiotics. The patient was also found to be in atrial fibrillation and rapid ventricular response and the patient was started on IV heparin and Cardizem drip for rate control. Noted the patient's COVID 19 testing was negative and the patient tested negative for COVID 19 infection.. Note that the patient also had a CAT scan of the chest that showed mediastinal bilateral hilar lymphadenopathy measuring up to 5.2 cm in size. This morning, the patient is still coughing. He was taken off the BiPAP and he is on 9 L about 2 by nasal cannula. He remains on DuoNeb nebulized treatment [id number]. Antibiotic coverage is with a combination of Rocephin and Zithromax. Chest x-ray from yesterday showed bilateral patchy airspace disease right more than left. The white cell count remains elevated at 24.6 with a hemoglobin of 11.9. Platelets of 277. The patient's PTT is therapeutic at 68. Electrodes are normal. No function is normal. Legionella urine antigen has been negative. The pro calcitonin level has not been checked in the level was sent. Troponin peaked at 1.7-1.2. On 10/18/2021, the patient is still having difficulties with breathing. He was on BiPAP throughout the night and the patient is currently on oxygen and he was placed on 4 L about 2 by nasal cannula. He is slightly short of breath and he has a congested cough. Unable to bring up much sputum. Note that I broaden his antibiotic coverage since yesterday and the patient is currently on a combination of cefepime and Zithromax. Despite extensive consolidation of the right lung, the pro calcitonin level is low at 0.06. The patient's white cell count was elevated and currently is down to 18 with a hemoglobin of 12.5 and a platelet count of 294. Electrodes are all within normal limits. A repeat chest x-ray was done today and the chest x-ray showed airspace disease similar in appearance compared to the earlier chest x-ray of 10/16/2021. There is evidence of chronic appearing rib cage deformity in the upper posterior right chest there is also apical thickening. 10/19/2021, the patient is feeling well. Cough is less congested. The patient is covered with triple antibiotics and the patient is currently on a combination of vancomycin, cefepime and Zithromax. No fever. No chills. He remains on oxygen and the patient is currently on 12-14 L high flow oxygen. The CBC still pending for now. Note that his white cell count was improving as of yesterday and was down to 18. Clinically the patient is feeling better. The BUN is at 20 with a creatinine of 0.5, sodium level is at 137. As of the electrodes are normal. Breathing is nonlabored. He has no significant sputum production. No hemoptysis or pleurisy. No altered mentation. He is weak. Note that his earlier pro calcitonin level came back at 0.06. 10/20/2021, I'm seeing the patient for a follow-up. Patient is doing well. Clinically improving. He feels less short of breath and I was able to wean down the oxygen down to 8 L of oxygen by nasal cannula. Nevertheless, the chest x- ray still showing extensive consolidation of the right lung. The patient remains on triple antibiotic coverage utilizing a combination of cefepime, Zithromax and vancomycin. No hemoptysis. No pleurisy. He has a good appetite. No nausea vomiting or diarrhea or abdominal pain. No fever. Meanwhile, the white cell count of 12.9 which is improved and her hemoglobin is at 13.2 and a platelet count is at 404. Normal creatinine. No other new complaints otherwise for now. Chest x-ray from today was noted. Oxygenation is gradually improving. 10/21/2021, she patient for a follow-up. Clinically doing well. I weaning down to 6 L approximately nasal cannula. He remains on the same antibiotic coverage and the patient is receiving triple antibiotic coverage including a combination of cefepime, Zithromax and vancomycin. He is also on IV Solu-Medrol 40 mg every 8 hours. The patient on DuoNeb nebulized she was [id number]. Using incentive spirometer. Sitting up on a chair. No altered mentation. No hemoptysis or pleurisy. The patient's blood work from yesterday was noted. Nothing new from today. Cultures are negative. The follow-up chest x-ray will be ordered for tomorrow. Oxygenation is gradually improving for now. 10/22/2021, the patient shows clinical improvement. Nevertheless, the chest x- ray still showing extensive consolidation of the right lung. Mother the patient bolus emphysema and the radiographic response to antibiotics may be somewhat suboptimal and delayed. He remains on 6 L about 2 by nasal cannula. Remains on same antibiotic coverage. Afebrile. Was recommended dropped down to 12. No nausea. No vomiting. No chest pain. No hemoptysis or pleurisy. The renal function is stable. Vancomycin trough is at 11.4. Chest x-ray from today was noted. The patient is using incentive spirometer. Tolerating his diet. 10/23/2021, patient has no specific complaints. The patient's creatinine 6 L O2 by nasal cannula. No worsening shortness of breath. White cell count is at 18. Electrodes are normal. Cough and some yellowish mucus. Chest x-ray showed extensive consolidation and we have committed ourselves to another chest x-ray and possible bronchoscopy if no improvement in the extensive consolidation of the right lung. . The patient remains a broad-spectrum antibiotic including triple antibiotic coverage and the patient is also on IV Solu-Medrol. Nevertheless, clinically patient is feeling better. Note that his cardiac rhythm is back to sinus.The patient is being seen by cardiology, the patient is on metoprolol 50 mg twice a day, Cardizem 30 mg by mouth 3 times a day, amiodarone 200 mg twice a day and the patient is also on and to coagulation with Eliquis 5 mg by mouth twice a day. Objective - Vital Signs Vital signs: Vital Signs Temp 98.0 F 10/23/21 08:00 Pulse 62 10/23/21 12:19 Resp 20 10/23/21 08:00 BP 136/66 10/23/21 12:19 Pulse Ox 92 L 10/23/21 08:00 Intake & Output 10/22/21 10/23/21 10/23/21 18:59 06:59 18:59 Intake Total 1200 740 Output Total 3407 180 5218 Balance 25 -400 -860 Intake: IV 240 240 .9@10 x2 240 240 Intake, IV Titration 600 500 Amount Cefepime 2 gm In Sodium 100 Chloride 0.9% 100 ml @ 25 mls/hr IVPB Q12HR [facility] Rx #:[id number] Vancomycin 1,750 mg In 500 Sodium Chloride 0.9% 500 ml 500 ml @ 167 mls/hr IVPB Q12H [facility] Rx#: [id number] Vancomycin 1,750 mg In 500 Sodium Chloride 0.9% 500 ml 500 ml @ 167 mls/hr IVPB Q16H [facility] Rx#: [id number] Oral 360 Output: Urine 1898 [id number] Other: Voiding Method Urinal Urinal Urinal # Voids 1 2 # Bowel Movements 0 0 - Exam GENERAL EXAM: Alert, very pleasant 76-year-old gentleman, on 6 L O2 by nasal cannula. The patient is on no BiPAP. HEAD: Normocephalic. EYES: Normal reaction of pupils, equal size. NOSE: Clear with pink turbinates. THROAT: No erythema or exudates. NECK: No masses, no JVD. CHEST: No chest wall deformity. LUNGS: Equal air entry with coarse bilateral rhonchi, crackles in the mid and lower lung taylor bilaterally more so on the right and there is diminished breath sounds along with scattered expiratory wheezes. CVS: S1 and S2 normal with no audible murmur, regular rhythm. ABDOMEN: No hepatosplenomegaly, normal bowel sounds, no guarding or rigidity. SPINE: No scoliosis or deformity SKIN: No rashes CENTRAL NERVOUS SYSTEM: No focal deficits, tone is normal in all 4 extremities. EXTREMITIES: There is no peripheral edema. No clubbing, no cyanosis. Peripheral pulses are intact. - Labs CBC & Chem 7: 10/23/21 05:43 10/23/21 05:43 Labs: Abnormal Lab Results - Last 24 Hours (Table) 10/22/21 10/22/21 10/23/21 Range/Units 16:39 20:22 05:43 WBC (3.8-10.6) k/uL MCV (80.0-100.0) fL Plt Count (150-450) k/uL BUN (9-20) mg/dL Creatinine 0.63 L (0.66-1.25) mg/dL Glucose (74-99) mg/dL POC Glucose (mg/dL) 106 H 134 H (75-99) mg/dL 10/23/21 10/23/21 10/23/21 Range/Units 05:43 05:43 05:59 WBC 18.3 H (3.8-10.6) k/uL MCV 103.6 H (80.0-100.0) fL Plt Count 489 H (150-450) k/uL BUN 23 H (9-20) mg/dL Creatinine 0.60 L (0.66-1.25) mg/dL Glucose 130 H (74-99) mg/dL POC Glucose (mg/dL) 129 H (75-99) mg/dL 10/23/21 Range/Units 11:44 WBC (3.8-10.6) k/uL MCV (80.0-100.0) fL Plt Count (150-450) k/uL BUN (9-20) mg/dL Creatinine (0.66-1.25) mg/dL Glucose (74-99) mg/dL POC Glucose (mg/dL) 117 H (75-99) mg/dL Assessment and Plan Plan: 1 acute hypoxic respiratory failure second to bilateral pneumonia right more than left. This is most likely a bacterial infection. COVID 19 evaluation came back negative and the patient had a negative Legionella urine antigen. The patient remains on broad-spectrum antibiotics. The patient is currently off the BiPAP and the patient is currently on 6 L of O2 by nasal cannula. Chest x-ray still showing extensive amount consolidation on the right. No major improvement in the chest x-ray. Clinically however the patient is improving. Patient feels improved. He is less short of breath. The white cell count was also improving. Clinically remains stable 2 acute non-ST segment elevation myocardial infarction, currently off IV heparin and the patient was started on long-term and to coagulation with Eliquis 5 mg by mouth twice a day. 3 acute kidney injury, improving 2 acute atrial fibrillation with rapid ventricular response , rate is controlled and the patient is on amiodarone 400 mg by mouth twice a day, metoprolol 50 mg by mouth 3 times a day and the patient is on long-term and coagulation with Eliquis. 3 dyspnea secondary to above 4 History of COPD. 5 History of hypertension. 6 History of obstructive sleep apnea syndrome. 7 History of skin cancer. 8 Prior history of pneumonia.the patient's previous cultures from 04/02/2019 was strep pneumonia and pseudomonas aeruginosa. 9 Prior history of tobacco use. 10 leukocytosis, improving Plan: Clinically the patient is improving and there is gradually improving oxygenation. Repeat chest x-ray from today showing persistent consolidation of the right lung. This could be related to underlying advanced was emphysema that the patient has and the x-ray picture may be somewhat delayed. Repeat chest x-ray in the morning Follow-up the patient's progress. May consider bronchoscopy later stage L is no improvement. We'll continue same antibiotic coverage for now. Keep the patient 6 L of oxygen by nasal cannula Leukocytosis improving Repeat labs in a.m. Continued on DuoNeb inhalations Pulmicort and Perforomist IV Solu-Medrol Anticoagulations with Eliquis Cardiac rhythm is sinus It Compliance Analyst of the case regarding the acute non-STEMI We'll continue to follow
[2021-10-23] MEDS: SERTRALINE 100 MG TAB PO SCH (15:35)
[2021-10-23 16:18] LABS: Glucose,Whole Blood 112 mg/dL (75-99)
--- NOTE | 2021-10-23 17:54 | P.PN ---
Progress Note - Text Progress Note Date: 10/23/21 Chief Complaint: Short of breath Hospital course This is a pleasant 76-year-old patient of Dr. Sultana. Chronic stable medical conditions include hypertension, obstructive sleep apnea, DJD, obesity. Depression, Patient presented increasing shortness of breath for 1 week, wheezing. Cough fever periods Sputum Production. Decrease Appetite Tired Rundown. Symptoms Became Progressively Worse. Found to Pulse Ox of 75% in the ER. Put on a BiPAP. Antibiotics. Bronchodilators. Admitted with bilateral pneumonia right greater than left, atrial fibrillation rapid ventricular rate, sepsis, COPD exacerbation. Started on IV cefepime, bronchodilators, IV steroids, IV heparin, IV Cardizem drip. Patient requiring BiPAP. Patient was changed over from IV heparin to eliquis. Beta blockers added. October 17: Breathing better. Decreased sputum production. On 12 L high flow nasal cannula. Had about half his breakfast. Not much appetite for lunch. Requested the patient sit up in a chair. Tired. Patient has been in sinus rhythm. October 18: Remains tired, short of breath. 12 L nasal cannula. Eating some. Vancomycin added by pulmonary. October 19: Tired. Short of breath. Remains on high flow nasal cannula. Intermittent BiPAP. Oral intake very well. Cough. I did today atrial fibrillation with rapid ventricular rate. Lopressor increased to 50 mg 3 times a day by cardiology. October 20: Feeling better. Sitting at the edge of the bed. 8 on his lunch. On 11 L nasal cannula. Patient is in sinus rhythm. Patient was started on oral amiodarone and oral Cardizem yesterday. October 21: Sitting of the edge of the bed. Eating better. 10 liters nasal cannula. Some cough. Sinus rhythm. October 22: Oral intake fair. Feels dryness of the nose and blockage of the nostril. A few nasal drops ordered. 9 L nasal cannula. Back in atrial fibrillation, rate controlled. Cough present. Nasal screen negative for MRSA. October 23: Down to 6 L of nasal cannula. Congested cough present. Currently sinus rhythm. Eating fair. Active Medications Acetaminophen (Acetaminophen Tab 325 Mg Tab) 650 mg PO Q6HR PRN PRN Reason: Mild Pain or Fever > 100.5 Hydrocodone Bitart/Acetaminophen (Hydrocodone/Apap 10-325mg 1 Each Tab) 1 each PO Q8HR PRN PRN Reason: Pain Hydrocodone Bitart/Acetaminophen (Hydrocodone/Apap 10-325mg 1 Each Tab) 1 each PO Q6H [facility] Last Admin: 10/23/21 17:28 Dose: 1 each Documented by: Albuterol/Ipratropium (Ipratropium-Albuterol 3 Ml Neb) 3 ml INHALATION RT-Q4H PRN PRN Reason: Shortness Of Breath Or Wheezing Last Admin: 10/17/21 11:28 Dose: 3 ml Documented by: Albuterol/Ipratropium (Ipratropium-Albuterol 3 Ml Neb) 3 ml INHALATION RT-QID [facility] Last Admin: 10/23/21 15:54 Dose: 3 ml Documented by: Alprazolam (Alprazolam 0.25 Mg Tab) 0.25 mg PO Q6HR PRN PRN Reason: Anxiety Last Admin: 10/19/21 21:30 Dose: 0.25 mg Documented by: Amiodarone HCl (Amiodarone 200 Mg Tab) 200 mg PO BID [facility] Apixaban (Apixaban 5 Mg Tab) 5 mg PO BID [facility]; Protocol Last Admin: 10/23/21 10:04 Dose: 5 mg Documented by: Aspirin (Aspirin 81 Mg) 81 mg PO DAILY [facility] Last Admin: 10/23/21 10:04 Dose: 81 mg Documented by: Atorvastatin Calcium (Atorvastatin 80 Mg Tab) 80 mg PO HS [facility] Last Admin: 10/22/21 21:24 Dose: 80 mg Documented by: Budesonide (Budesonide 1 Mg/2 Ml Nebu) 1 mg INHALATION RT-BID [facility] Last Admin: 10/23/21 07:21 Dose: 1 mg Documented by: Calcium Carbonate/Glycine (Calcium Carbonate 500 Mg Chewable) 1,000 mg PO Q4HR PRN PRN Reason: Dyspepsia Last Admin: 10/14/21 18:02 Dose: 1,000 mg Documented by: Diltiazem HCl (Diltiazem Oral 30 Mg Tab) 30 mg PO TID [facility] Last Admin: 10/23/21 15:35 Dose: 30 mg Documented by: Famotidine (Famotidine 20 Mg Tab) 20 mg PO DAILY [facility] Last Admin: 10/23/21 10:05 Dose: 20 mg Documented by: Formoterol Fumarate (Formoterol Fumarate 20 Mcg/2 Ml Nebu) 20 mcg INHALATION RT-BID [facility] Last Admin: 10/23/21 07:21 Dose: 20 mcg Documented by: Furosemide (Furosemide 20 Mg Tab) 20 mg PO DAILY [facility] Last Admin: 10/23/21 10:05 Dose: 20 mg Documented by: Guaifenesin/Dextromethorphan (Guaifenesin-Dm 100-10mg/5ml 10 Ml Cup) 10 ml PO Q6HR PRN PRN Reason: Cough Sodium Chloride (Saline 0.9%) 1,000 mls @ 50 mls/hr IV .Q20H [facility] Last Admin: 10/23/21 10:05 Dose: 50 mls/hr Documented by: Cefepime HCl 2 gm/ Sodium (Chloride) 100 mls @ 25 mls/hr IVPB Q12HR [facility] Last Admin: 10/23/21 10:02 Dose: 25 mls/hr Documented by: Vancomycin HCl 1,750 mg/ (Sodium Chloride) 500 mls @ 167 mls/hr IVPB Q12H [facility] Last Admin: 10/23/21 12:10 Dose: 167 mls/hr Documented by: Insulin Aspart (Insulin Aspart (Novolog) 100 Unit/Ml Vial) 0 unit SQ ACHS [facility]; Protocol Last Admin: 10/23/21 17:27 Dose: Not Given Documented by: Lactulose (Lactulose 20 Gm/30 Ml Cup) 20 gm PO DAILY PRN PRN Reason: Constipation Lisinopril (Lisinopril 10 Mg Tab) 10 mg PO BID [facility] Last Admin: 10/23/21 10:04 Dose: 10 mg Documented by: Lorazepam (Lorazepam 2 Mg/Ml Inj) 0.5 mg IV Q8HR PRN PRN Reason: Anxiety Last Admin: 10/15/21 09:14 Dose: 0.5 mg Documented by: Melatonin (Melatonin 3 Mg Tablet) 3 mg PO HS PRN PRN Reason: Insomnia Last Admin: 10/22/21 00:13 Dose: 3 mg Documented by: Methylprednisolone Sodium Succinate (Methylprednisolone Sod Succi 40 Mg/Ml 1 Ml Vial) 40 mg IV Q8HR [facility] Last Admin: 10/23/21 15:34 Dose: 40 mg Documented by: Metoprolol Tartrate (Metoprolol Tartrate 50 Mg Tab) 50 mg PO TID [facility] Last Admin: 10/23/21 15:34 Dose: 50 mg Documented by: Miscellaneous Information (Vancomycin Trough Due 1 Each Misc) 1 each MISCELLANE ONCE ONE Stop: 10/24/21 11:01 Morphine Sulfate (Morphine Sulfate Er 15 Mg Tablet) 15 mg PO BID@0600,1600 [facility]; Protocol Last Admin: 10/23/21 15:35 Dose: 15 mg Documented by: Naloxone HCl (Naloxone 0.4 Mg/Ml 1 Ml Vial) 0.2 mg IV Q2M PRN PRN Reason: Opioid Reversal Ondansetron HCl (Ondansetron 4 Mg/2 Ml Vial) 4 mg IVP Q8HR PRN PRN Reason: Nausea And Vomiting Oxymetazoline HCl (Oxymetazoline 0.05% Nasl [place] 1 [place] Bottle) 2 spray NASAL BID [facility] Last Admin: 10/23/21 10:06 Dose: 2 spray Documented by: Pramipexole Dihydrochloride (Pramipexole 1 Mg Tab) 1 mg PO BID@0600,1600 [facility] Last Admin: 10/23/21 15:35 Dose: 1 mg Documented by: Sertraline HCl (Sertraline 100 Mg Tab) 100 mg PO DAILY@1600 [facility] Last Admin: 10/23/21 15:35 Dose: 100 mg Documented by: Sodium Chloride (Sodium Chloride 0.65% Nasal [place] 44 Ml Btl) 2 spray NASAL QID PRN PRN Reason: Congestion Past medical history to include: COPD, hypertension, obstructive sleep apnea, DJD, skin cancer Social history: . Smoked for 30 years stopped in 1979. Family history: Reviewed, noncontributory to presentation Physical examination: VITAL SIGNS: 97.8, 59, 20, 145-73, 92% on 6 L GENERAL:, Laying in bed, breathing better EYES: Pupils equal. Conjunctiva normal. HEENT: External appearance of nose and ears normal, oral cavity grossly normal. NECK: JVD unable to assess; masses not palpable. HEART: Heart sounds irregular; no edema. LUNGS: Respiratory rate increased decreased breath sounds, some crackles ABDOMEN: Soft, nontender, liver spleen not palpable, no masses palpable. PSYCH: Alert and oriented x3; mood and affect normal MUSCULOSKELETAL:No Clubbing/cyanosis;muscles-grossly intact INVESTIGATIONS, reviewed in the clinical context: October 23: WBC 18.3 hemoglobin 14.1 platelets 49 potassium 4.7 BUN 23 creatinine 0.6 October 22: Creatinine 0.58 Accu-Cheks noted. Nasal screen negative for MRSA October 21: Creatinine 0.64 October 20: White count 12.9 hemoglobin 13.2 platelets 404 potassium 4.4 creatinine 0.5 to October 19: Potassium 4.5 crit 0.5 October 18: White count 18 hemoglobin 12.5 potassium 4.3 creatinine 0.61 October 17: White count 24.6 hemoglobin 11.9 platelets 277 sodium 141 potassium 4.2 creatinine 0.67. Pro-calcitonin 0.06 Chest x-ray film personally reviewed by me-[October 16] significant right-sided infiltrates White count 25.6 hemoglobin 15.9 platelets 324 increased neutrophils d-dimer 7.48 sodium 138 potassium 4.2. 38 creatinine 1.53 lactic acid 3.8 Troponin I 2.0, 1.7, 1.2 Coronavirus [PCR]: Not detected EKG tracing personally reviewed by me-atrial fibrillation ST-T wave changes, rate 138 Chest angiogram chest: Moderate emphysema. Extensive patchy and confluent consolidation throughout the right lung. Some of the left side 2. Hilar lymphadenopathy. Chest x-ray film personally reviewed by me-extensive infiltrate on the right mid zone and some on the left side 2-D echocardiogram: EF 50-55% Assessment and plan: -Severe pneumonia predominantly right-sided gram-negative organism: Slow to respond Cefepime 2 g every 12 hour. IV vancomycin . For bronchoscopy tomorrow. -Severe sepsis from pneumonia: Better IV fluids. Antibiotics. -Paroxysmal Atrial fibrillation rapid ventricular rate on presentation. In and out of A. fib. Beta valente. [Received: IV heparin. IV Cardizem drip] Eliquis, Lopressor 50 mg 3 times a day. By mouth Cordarone. Cardizem 30 mg 3 times a day IV heparin monitoring: Discontinued Follow PTT -Acute COPD exacerbation in a prior smoker: Slow to respond DuoNeb. IV Solu-Medrol -Acute severe hypoxic respiratory failure from pneumonia: Slow to respond Intermittent BiPAP. 6 L high flow nasal cannula -Essential hypertension Zestril 10 mg daily Lopressor 50 mg 3 times a day. Cardizem 30 mg 3 times a day -Restless leg syndrome Mirapex 1 mg twice a day -Depression Zoloft 100 mg daily Primary osteoarthritis multiple joints bilaterally Wiley 10 every 6 IV cefepime. IV vancomycin. IV Solu-Medrol. 6 L nasal cannula. Discussed with patient.
[2021-10-23 20:11] LABS: Glucose,Whole Blood 126 mg/dL (75-99)
[2021-10-23] MEDS: ATORVASTATIN 80 MG TAB PO SCH (20:44)
[2021-10-24] MEDS: SODIUM CHLORIDE 0.9% 1,000 ML IV SCH ×2 (04:16→09:52)
[2021-10-24] MEDS: PRAMIPEXOLE 1 MG TAB PO SCH ×2 (05:57→16:22)
[2021-10-24] MEDS: MORPHINE SULFATE ER 15 MG TABLET PO SCH ×2 (05:57→16:21)
[2021-10-24] MEDS: HYDROcodone/APAP 10-325MG 1 EACH TAB PO SCH ×4 (05:57→23:20)
[2021-10-24 06:03] LABS: Glucose,Whole Blood 99 mg/dL (75-99)
[2021-10-24] MEDS: INSULIN ASPART (NovoLOG) 100 UNIT/ML VIAL SQ SCH ×4 (06:36→20:30)
--- NOTE | 2021-10-24 07:47 | XR ---
EXAMINATION TYPE: XR chest 1V DATE OF EXAM: 10/24/2021 COMPARISON: 10/23/2021 HISTORY: Cough TECHNIQUE: Single frontal view of the chest is obtained. FINDINGS: Osseous structures remain demineralized. Degenerative change bilateral glenohumeral joints redemonstrated. Multiple old healed upper right rib fractures redemonstrated. Persistent cardiomegal y. Chronic parenchymal changes with confluent increased right mid to lower lung opacity silhouetting right heart border and hemidiaphragm and scattered left- sided more central opacities redemonstrated. IMPRESSION: COPD with persistent areas of infiltrate are stable from prior exam.
[2021-10-24] MEDS: FORMOTEROL FUMARATE 20 MCG/2 ML NEBU INHALATION SCH ×2 (08:48→20:13)
[2021-10-24] MEDS: IPRATROPIUM-ALBUTEROL 3 ML NEB INHALATION SCH ×4 (08:48→20:13)
[2021-10-24] MEDS: BUDESONIDE 1 MG/2 ML NEBU INHALATION SCH ×2 (08:48→20:13)
[2021-10-24] MEDS: CEFEPIME 2 GM in SODIUM CHLORIDE 0.9% 100 ML IVPB SCH ×2 (09:50→18:12)
[2021-10-24] MEDS: methylPREDNISolone SOD SUCCI 40 MG/ML 1 ML VIAL IV SCH ×2 (09:50→18:19)
[2021-10-24] MEDS: ASPIRIN 81 MG PO SCH (09:50)
[2021-10-24] MEDS: METOPROLOL TARTRATE 50 MG TAB PO SCH ×3 (09:51→20:30)
[2021-10-24] MEDS: lisinopriL 10 MG TAB PO SCH ×2 (09:51→20:30)
[2021-10-24] MEDS: DILTIAZEM ORAL 30 MG TAB PO SCH (09:51)
[2021-10-24] MEDS: APIXABAN 5 MG TAB PO SCH ×2 (09:51→20:30)
[2021-10-24] MEDS: AMIODARONE 200 MG TAB PO SCH ×2 (09:51→20:30)
[2021-10-24] MEDS: FUROSEMIDE 20 MG TAB PO SCH (09:51)
[2021-10-24] MEDS: FAMOTIDINE 20 MG TAB PO SCH (09:51)
[2021-10-24] MEDS: OXYMETAZOLINE 0.05% NASL SPRAY 1 SPRAY BOTTLE NASAL SCH ×2 (09:53→20:31)
[2021-10-24] MEDS ORDERED: VANCOMYCIN TROUGH DUE 1 EACH MISC MISCELLANE ONE (11:00)
[2021-10-24 11:41] LABS: Glucose,Whole Blood 135 mg/dL (75-99)
[2021-10-24] MEDS: VANCOMYCIN 1,750 MG in SODIUM CHLORIDE 0.9% 500 ML 500 ML IVPB SCH ×2 (12:30→23:20)
[2021-10-24 12:46] LABS: African American GFR (CKD) >90 (>60 ml/min/1.73 sqM); Non-African American GFR(CKD) >90 (>60 ml/min/1.73 sqM)
--- NOTE | 2021-10-24 14:31 | P.PN ---
Subjective This is a 76-year-old gentleman with a past medical history significant for hypertension and dyslipidemia and sleep apnea and also chronic obstructive pulmonary disease, presented to the emergency department complaining of shortness of breath. We consulted to see the patient for further evaluation of abnormal cardiac enzymes and elevated troponin. The patient states that for the last few days he has not been feeding well. He has been experiencing increasing in the temperature associated with cough productive of sputum. Beside that he was experiencing increasing in the shortness of breath but no symptoms of chest pain or chest discomfort and no dizziness or lightheadedness or any feeling of heart racing or fluttering or presyncope or syncope. In the ER the patient was found to be hypoxic with oxygen saturation of 75% and subsequently he was placed on BiPAP with improvement in his oxygenation. Also he presented to the emergency department he was in atrial fibrillation with RVR and subsequently converted to normal sinus mechanism after he was started on Cardizem IV. Currently he is in sinus rhythm was sinus bradycardia. He still on Cardizem IV. He is also on heparin IV. The patient underwent a workup including EKG as described earlier showing A. fib with diffuse nonspecific ST and T wave abnormalities. No EKG after the patient was converted to normal sinus mechanism. Also the troponin came in to be elevated. The chest x-ray showed findings consistent with a pneumonia. He underwent a computed tomography scan of the chest which showed multiple findings including no pulmonary embolism, bilateral hilar adenopathy, bilateral infiltrate, and also small to moderate pericardial effusion, heart failure. The patient has no history of coronary artery disease or congestive heart failure or any cardiac arrhythmia and never seen any associate professor of kinesiology in the past. When he was seen and examined he was in bilateral expiratory wheezing with regular heart sounds and states bilateral lower extremities edema 10/15/21 Echocardiogram revealed an EF between 50 and 55% with mild mitral and tricuspid regurgitation, mild aortic valve sclerosis, and moderately enlarged right ventricle with left ventricular hypertrophy. 10/24/2021 Patient examined this morning. Patient is sitting up in the chair. He appears to be improving. He denies chest pain or pressure. He reports improvement in his shortness of breath. He also having blood tinged sputum and blood noted in a bowel movement. Patient's blood pressure remains elevated this morning with a systolic in the 160s. Telemetry reveals sinus rhythm with PACs. PHYSICAL EXAM: VITAL SIGNS: Reviewed. GENERAL: Well-developed in no acute distress. NECK: Supple. No JVD or thyromegaly LUNGS: Respirations even and unlabored. Lungs diminished with scattered rhonchi. HEART: Regular rate and rhythm. S1 and S2 heard. EXTREMITIES: Normal range of motion. No clubbing or cyanosis. Peripheral pulses intact. Trace bilateral lower extremity edema ASSESSMENT: Bilateral pneumonia Acute COPD exacerbation Hypoxemia secondary to the above New onset paroxysmal atrial fibrillation with RVR Type II NSTEMI resulting from demand ischemia from RVR Obstructive sleep apnea PLAN: Transition to PO Cardizem 120mg Daily Continue metoprolol and amio Continue telemetry monitoring Continue anticoagulation with Eliquis We will monitor for bleeding Further recommendations pending patient course Nurse practitioner note has been reviewed by physician. Signing provider agrees with the documented findings, assessment, and plan of care. Objective - Vital Signs Vital signs: Vital Signs Temp 97.7 F 10/24/21 09:48 Pulse 64 10/24/21 09:48 Resp 20 10/24/21 09:48 BP 163/75 10/24/21 09:48 Pulse Ox 92 L 10/24/21 09:48 Intake & Output 10/23/21 10/24/21 10/24/21 18:59 06:59 18:59 Intake Total 1340 920 540 Output Total 2700 1875 350 Balance -1360 -955 190 Intake: IV 240 .9@10 x2 240 Intake, IV Titration 500 600 Amount Cefepime 2 gm In Sodium 100 Chloride 0.9% 100 ml @ 25 mls/hr IVPB Q12HR [facility] Rx #:[id number] Vancomycin 1,750 mg In 500 500 Sodium Chloride 0.9% 500 ml 500 ml @ 167 mls/hr IVPB Q12H [facility] Rx#: [id number] Oral 600 320 540 Output: Urine 2700 1875 350 Other: Voiding Method Urinal Urinal # Voids 4 # Bowel Movements 0 1 - Labs CBC & Chem 7: 10/23/21 05:43 10/24/21 11:19 Labs: Abnormal Lab Results - Last 24 Hours (Table) 10/23/21 10/23/21 10/23/21 Range/Units 11:44 16:16 20:05 POC Glucose (mg/dL) 117 H 112 H 126 H (75-99) mg/dL 10/24/21 Range/Units 11:39 POC Glucose (mg/dL) 135 H (75-99) mg/dL
--- NOTE | 2021-10-24 15:36 | P.PN ---
Progress Note - Text Progress Note Date: 10/24/21 Chief Complaint: Short of breath Hospital course This is a pleasant 76-year-old patient of Dr. Sultana. Chronic stable medical conditions include hypertension, obstructive sleep apnea, DJD, obesity. Depression, Patient presented increasing shortness of breath for 1 week, wheezing. Cough fever periods Sputum Production. Decrease Appetite Tired Rundown. Symptoms Became Progressively Worse. Found to Pulse Ox of 75% in the ER. Put on a BiPAP. Antibiotics. Bronchodilators. Admitted with bilateral pneumonia right greater than left, atrial fibrillation rapid ventricular rate, sepsis, COPD exacerbation. Started on IV cefepime, bronchodilators, IV steroids, IV heparin, IV Cardizem drip. Patient requiring BiPAP. Patient was changed over from IV heparin to eliquis. Beta blockers added. October 17: Breathing better. Decreased sputum production. On 12 L high flow nasal cannula. Had about half his breakfast. Not much appetite for lunch. Requested the patient sit up in a chair. Tired. Patient has been in sinus rhythm. October 18: Remains tired, short of breath. 12 L nasal cannula. Eating some. Vancomycin added by pulmonary. October 19: Tired. Short of breath. Remains on high flow nasal cannula. Intermittent BiPAP. Oral intake very well. Cough. I did today atrial fibrillation with rapid ventricular rate. Lopressor increased to 50 mg 3 times a day by cardiology. October 20: Feeling better. Sitting at the edge of the bed. 8 on his lunch. On 11 L nasal cannula. Patient is in sinus rhythm. Patient was started on oral amiodarone and oral Cardizem yesterday. October 21: Sitting of the edge of the bed. Eating better. 10 liters nasal cannula. Some cough. Sinus rhythm. October 22: Oral intake fair. Feels dryness of the nose and blockage of the nostril. A few nasal drops ordered. 9 L nasal cannula. Back in atrial fibrillation, rate controlled. Cough present. Nasal screen negative for MRSA. October 23: Down to 6 L of nasal cannula. Congested cough present. Currently sinus rhythm. Eating fair. October 24: Remains on 6 L nasal cannula. Oral intake fair. Cough. Sinus rhythm. Some bloodstained sputum. Active Medications Acetaminophen (Acetaminophen Tab 325 Mg Tab) 650 mg PO Q6HR PRN PRN Reason: Mild Pain or Fever > 100.5 Hydrocodone Bitart/Acetaminophen (Hydrocodone/Apap 10-325mg 1 Each Tab) 1 each PO Q8HR PRN PRN Reason: Pain Hydrocodone Bitart/Acetaminophen (Hydrocodone/Apap 10-325mg 1 Each Tab) 1 each PO Q6H [facility] Last Admin: 10/24/21 12:30 Dose: 1 each Documented by: Albuterol/Ipratropium (Ipratropium-Albuterol 3 Ml Neb) 3 ml INHALATION RT-Q4H PRN PRN Reason: Shortness Of Breath Or Wheezing Last Admin: 10/17/21 11:28 Dose: 3 ml Documented by: Albuterol/Ipratropium (Ipratropium-Albuterol 3 Ml Neb) 3 ml INHALATION RT-QID [facility] Last Admin: 10/24/21 12:12 Dose: 3 ml Documented by: Alprazolam (Alprazolam 0.25 Mg Tab) 0.25 mg PO Q6HR PRN PRN Reason: Anxiety Last Admin: 10/19/21 21:30 Dose: 0.25 mg Documented by: Amiodarone HCl (Amiodarone 200 Mg Tab) 200 mg PO BID [facility] Last Admin: 10/24/21 09:51 Dose: 200 mg Documented by: Apixaban (Apixaban 5 Mg Tab) 5 mg PO BID [facility]; Protocol Last Admin: 10/24/21 09:51 Dose: 5 mg Documented by: Aspirin (Aspirin 81 Mg) 81 mg PO DAILY [facility] Last Admin: 10/24/21 09:50 Dose: 81 mg Documented by: Atorvastatin Calcium (Atorvastatin 80 Mg Tab) 80 mg PO HS [facility] Last Admin: 10/23/21 20:44 Dose: 80 mg Documented by: Budesonide (Budesonide 1 Mg/2 Ml Nebu) 1 mg INHALATION RT-BID [facility] Last Admin: 10/24/21 08:48 Dose: 1 mg Documented by: Calcium Carbonate/Glycine (Calcium Carbonate 500 Mg Chewable) 1,000 mg PO Q4HR PRN PRN Reason: Dyspepsia Last Admin: 10/14/21 18:02 Dose: 1,000 mg Documented by: Diltiazem HCl (Diltiazem Cd 120 Mg Cap.Er.24h) 120 mg PO DAILY [facility] Famotidine (Famotidine 20 Mg Tab) 20 mg PO DAILY [facility] Last Admin: 02/07/22 09:51 Dose: 20 mg Documented by: Formoterol Fumarate (Formoterol Fumarate 20 Mcg/2 Ml Nebu) 20 mcg INHALATION RT-BID [facility] Last Admin: 10/24/21 08:48 Dose: 20 mcg Documented by: Furosemide (Furosemide 20 Mg Tab) 20 mg PO DAILY [facility] Last Admin: 10/24/21 09:51 Dose: 20 mg Documented by: Guaifenesin/Dextromethorphan (Guaifenesin-Dm 100-10mg/5ml 10 Ml Cup) 10 ml PO Q6HR PRN PRN Reason: Cough Sodium Chloride (Saline 0.9%) 1,000 mls @ 50 mls/hr IV .Q20H [facility] Last Admin: 10/24/21 09:52 Dose: 50 mls/hr Documented by: Vancomycin HCl 1,750 mg/ (Sodium Chloride) 500 mls @ 167 mls/hr IVPB Q12H [facility] Last Admin: 10/24/21 12:30 Dose: 167 mls/hr Documented by: Insulin Aspart (Insulin Aspart (Novolog) 100 Unit/Ml Vial) 0 unit SQ ACHS [facility]; Protocol Last Admin: 10/24/21 12:31 Dose: 1 unit Documented by: Lactulose (Lactulose 20 Gm/30 Ml Cup) 20 gm PO DAILY PRN PRN Reason: Constipation Lisinopril (Lisinopril 10 Mg Tab) 10 mg PO BID [facility] Last Admin: 10/24/21 09:51 Dose: 10 mg Documented by: Lorazepam (Lorazepam 2 Mg/Ml Inj) 0.5 mg IV Q8HR PRN PRN Reason: Anxiety Last Admin: 10/15/21 09:14 Dose: 0.5 mg Documented by: Melatonin (Melatonin 3 Mg Tablet) 3 mg PO HS PRN PRN Reason: Insomnia Last Admin: 10/22/21 00:13 Dose: 3 mg Documented by: Methylprednisolone Sodium Succinate (Methylprednisolone Sod Succi 40 Mg/Ml 1 Ml Vial) 40 mg IV Q8HR [facility] Last Admin: 10/24/21 09:50 Dose: 40 mg Documented by: Metoprolol Tartrate (Metoprolol Tartrate 50 Mg Tab) 50 mg PO TID [facility] Last Admin: 10/24/21 09:51 Dose: 50 mg Documented by: Morphine Sulfate (Morphine Sulfate Er 15 Mg Tablet) 15 mg PO BID@0600,1600 [facility]; Protocol Last Admin: 10/24/21 05:57 Dose: 15 mg Documented by: Naloxone HCl (Naloxone 0.4 Mg/Ml 1 Ml Vial) 0.2 mg IV Q2M PRN PRN Reason: Opioid Reversal Ondansetron HCl (Ondansetron 4 Mg/2 Ml Vial) 4 mg IVP Q8HR PRN PRN Reason: Nausea And Vomiting Oxymetazoline HCl (Oxymetazoline 0.05% Nasl [place] 1 [place] Bottle) 2 spray NASAL BID [facility] Last Admin: 10/24/21 09:53 Dose: 2 spray Documented by: Pramipexole Dihydrochloride (Pramipexole 1 Mg Tab) 1 mg PO BID@0600,1600 [facility] Last Admin: 10/24/21 05:57 Dose: 1 mg Documented by: Sertraline HCl (Sertraline 100 Mg Tab) 100 mg PO DAILY@1600 [facility] Last Admin: 10/23/21 15:35 Dose: 100 mg Documented by: Sodium Chloride (Sodium Chloride 0.65% Nasal [place] 44 Ml Btl) 2 spray NASAL QID PRN PRN Reason: Congestion Past medical history to include: COPD, hypertension, obstructive sleep apnea, DJD, skin cancer Social history: . Smoked for 30 years stopped in 1979. Family history: Reviewed, noncontributory to presentation Physical examination: VITAL SIGNS: Afebrile, 61, 20, 160/78, 92% on 6 L GENERAL:, Laying in bed, some shortness of breath EYES: Pupils equal. Conjunctiva normal. HEENT: External appearance of nose and ears normal, oral cavity grossly normal. NECK: JVD unable to assess; masses not palpable. HEART: First second sounds normal; no edema. LUNGS: Respiratory rate increased decreased breath sounds, some crackles ABDOMEN: Soft, nontender, liver spleen not palpable, no masses palpable. PSYCH: Alert and oriented x3; mood and affect normal MUSCULOSKELETAL:No Clubbing/cyanosis;muscles-grossly intact INVESTIGATIONS, reviewed in the clinical context: October 24: Creatinine 0.55 October 23: WBC 18.3 hemoglobin 14.1 platelets 49 potassium 4.7 BUN 23 creatinine 0.6 October 22: Creatinine 0.58 Accu-Cheks noted. Nasal screen negative for MRSA October 21: Creatinine 0.64 October 20: White count 12.9 hemoglobin 13.2 platelets 404 potassium 4.4 creatinine 0.5 to October 19: Potassium 4.5 crit 0.5 October 18: White count 18 hemoglobin 12.5 potassium 4.3 creatinine 0.61 October 17: White count 24.6 hemoglobin 11.9 platelets 277 sodium 141 potassium 4.2 creatinine 0.67. Pro-calcitonin 0.06 Chest x-ray film personally reviewed by me-[October 16] significant right-sided infiltrates White count 25.6 hemoglobin 15.9 platelets 324 increased neutrophils d-dimer 7.48 sodium 138 potassium 4.2. 38 creatinine 1.53 lactic acid 3.8 Troponin I 2.0, 1.7, 1.2 Coronavirus [PCR]: Not detected EKG tracing personally reviewed by me-atrial fibrillation ST-T wave changes, rate 138 Chest angiogram chest: Moderate emphysema. Extensive patchy and confluent consolidation throughout the right lung. Some of the left side 2. Hilar lymphadenopathy. Chest x-ray film personally reviewed by me-extensive infiltrate on the right mid zone and some on the left side 2-D echocardiogram: EF 50-55% Assessment and plan: -Severe pneumonia predominantly right-sided gram-negative organism: Slow to respond Cefepime 2 g every 12 hour. IV vancomycin . -Severe sepsis from pneumonia: Better IV fluids. Antibiotics. -Paroxysmal Atrial fibrillation rapid ventricular rate on presentation. In and out of A. fib. Beta valente. [Received: IV heparin. IV Cardizem drip] Eliquis, Lopressor 50 mg 3 times a day. By mouth Cordarone. Cardizem 30 mg 3 times a day IV heparin monitoring: Discontinued Follow PTT -Acute COPD exacerbation in a prior smoker: Slow to respond DuoNeb. IV Solu-Medrol -Acute severe hypoxic respiratory failure from pneumonia: Slow to respond Intermittent BiPAP. 6 L high flow nasal cannula -Essential hypertension Zestril 10 mg daily Lopressor 50 mg 3 times a day. Cardizem 30 mg 3 times a day -Restless leg syndrome Mirapex 1 mg twice a day -Depression Zoloft 100 mg daily Primary osteoarthritis multiple joints bilaterally [place] 10 every 6 IV cefepime. IV vancomycin. IV Solu-Medrol. 6 L nasal cannula. Discussed with patient. Up in chair as tolerated.
[2021-10-24] MEDS: SERTRALINE 100 MG TAB PO SCH (16:22)
[2021-10-24] MEDS: DILTIAZEM CD 120 MG CAP.ER.24H PO SCH (16:24)
[2021-10-24 16:35] LABS: Glucose,Whole Blood 122 mg/dL (75-99)
--- NOTE | 2021-10-24 17:24 | P.PN ---
Subjective Progress Note Date: 10/24/21 Principal diagnosis: Shortness of breath, wheezing, hypoxia On 10/24/2021 patient seen in follow-up on selective care unit, he sitting up on the edge of the bed, breathing comfortably, he is currently down to 6 L of oxygen pulse ox is 92%, lung sounds are still positive for diffuse wheezes and rhonchi, but overall patient's is feeling better, oxygenation has improved although the chest x-ray still showing persistent areas of infiltrate with chronic parenchymal changes with confluent increased right mid to lower lung opacity silhouetting the right heart border and hemidiaphragm and scattered left-sided more central opacities. Patient has completed a course of cefepime, remains on vancomycin, so far there is been no growth on the blood and sputum cultures. He also continues on IV steroids with Solu-Medrol gram every 8 hours, he is on daily dose of Lasix, cough medicine, nebulized bronchodilators. Denies any chest discomfort, no hemoptysis. Breathing fairly easily. Yesterday's labs have been reviewed, his white blood cell count was 18.3, hemoglobin is 14.1 and electrolytes are unremarkable, B1 is 23 creatinine 0.6 Objective - Vital Signs Vital signs: Vital Signs Temp 97.7 F 10/24/21 09:48 Pulse 60 10/24/21 16:14 Resp 20 10/24/21 16:14 BP 179/85 10/24/21 16:14 Pulse Ox 92 L 10/24/21 16:14 Intake & Output 10/23/21 10/24/21 10/24/21 18:59 06:59 18:59 Intake Total 7172 266 3097 Output Total 2700 1875 975 Balance -1360 -955 645 Intake: IV 240 240 .9@10 x2 240 240 Intake, IV Titration 500 600 600 Amount Cefepime 2 gm In Sodium 100 100 Chloride 0.9% 100 ml @ 25 mls/hr IVPB Q12HR [facility] Rx #:[id number] Vancomycin 1,750 mg In 500 500 500 Sodium Chloride 0.9% 500 ml 500 ml @ 167 mls/hr IVPB Q12H [facility] Rx#: [id number] Oral 600 320 780 Output: Urine 2700 1875 975 Other: Voiding Method Urinal Urinal # Voids 4 2 # Bowel Movements 0 1 - Exam GENERAL EXAM: Alert, very pleasant, 76-year-old white male, on 6 L of oxygen and the pulse ox of 92% comfortable in no apparent distress. HEAD: Normocephalic/atraumatic. EYES: Normal reaction of pupils, equal size. Conjunctiva pink, sclera white. NOSE: Clear with pink turbinates. THROAT: No erythema or exudates. NECK: No masses, no JVD, no thyroid enlargement, no adenopathy. CHEST: No chest wall deformity. Symmetrical expansion. LUNGS: Equal air entry with diffuse rhonchi and crackles in the right mid and lower lung CVS: Regular rate and rhythm, normal S1 and S2, no gallops, no murmurs, no rubs ABDOMEN: Soft, nontender. No hepatosplenomegaly, normal bowel sounds, no guarding or rigidity. EXTREMITIES: No clubbing, no edema, no cyanosis, 2+ pulses and upper and lower extremities. MUSCULOSKELETAL: Muscle strength and tone normal. SPINE: No scoliosis or deformity SKIN: No rashes CENTRAL NERVOUS SYSTEM: Alert and oriented -3. No focal deficits, tone is normal in all 4 extremities. PSYCHIATRIC: Alert and oriented -3. Appropriate affect. Intact judgment and insight. - Labs CBC & Chem 7: 10/23/21 05:43 10/24/21 11:19 Labs: Abnormal Lab Results - Last 24 Hours (Table) 10/23/21 10/24/21 10/24/21 Range/Units 20:05 11:19 11:39 Creatinine 0.55 L (0.66-1.25) mg/dL POC Glucose (mg/dL) 126 H 135 H (75-99) mg/dL 10/24/21 Range/Units 16:34 Creatinine (0.66-1.25) mg/dL POC Glucose (mg/dL) 122 H (75-99) mg/dL Assessment and Plan Plan: Assessment: #1. Acute hypoxic respiratory failure second to bilateral pneumonia right more than left. This is most likely a bacterial infection. COVID 19 evaluation came back negative and the patient had a negative Legionella urine antigen. The patient remains on broad-spectrum antibiotics. The patient is currently off the BiPAP and the patient is currently on 6 L of O2 by nasal cannula. Chest x-ray still showing extensive amount consolidation on the right. No major improvement in the chest x-ray. Clinically however the patient is improving. Patient feels improved. He is less short of breath. The white cell count was also improving. Clinically remains stable #2. Acute non-ST segment elevation myocardial infarction, currently off IV heparin and the patient was started on long-term and to coagulation with Eliquis 5 mg by mouth twice a day. #3. Acute kidney injury, improving #4. Acute atrial fibrillation with rapid ventricular response , rate is controlled and the patient is on amiodarone 400 mg by mouth twice a day, m etoprolol 50 mg by mouth 3 times a day and the patient is on long-term and coagulation with Eliquis. #5. Dyspnea secondary to above #6. History of COPD. #7. History of hypertension. #8. History of obstructive sleep apnea syndrome. #9. History of skin cancer. #10. Prior history of pneumonia.the patient's previous cultures from 04/02/2019 was strep pneumonia and pseudomonas aeruginosa. #11. Prior history of tobacco use. #12. Leukocytosis Plan: Clinically patient is improving, he is down to 6 L of oxygen His repeat chest x-ray continues to show persistent infiltrates and consolidation of the right lung We will add cefepime back on, continue with vancomycin as cultures remain negative Today's labs have been noted, leukocytosis is increased possibly related to IV steroids For now we'll continue with current medical treatment Continue nebulized bronchodilators, continue IV Solu-Medrol will increase IV Solu-Medrol to 60 g every 6 hours Continue Coumadin Increase activity as tolerated Patient is in agreement with the plan We'll continue to monitor his clinical progress I performed a history & physical examination of the patient and discussed their management with my nurse practitioner, Hyun Steiner. I reviewed the nurse practitioner's note and agree with the documented findings and plan of care. Lung sounds are positive for diffuse rhonchi throughout the lung taylor. The findings and the impression was discussed with the patient. I attest to the documentation by the nurse practitioner. Time with Patient: Less than 30
[2021-10-24] MEDS: methylPREDNISolone SOD SUCCI 125 MG/2 ML VIAL IV SCH ×2 (18:12→23:20)
[2021-10-24 20:14] LABS: Glucose,Whole Blood 119 mg/dL (75-99)
[2021-10-24] MEDS: ATORVASTATIN 80 MG TAB PO SCH (20:30)
[2021-10-25] MEDS: CEFEPIME 2 GM in SODIUM CHLORIDE 0.9% 100 ML IVPB SCH ×3 (01:42→17:33)
[2021-10-25 06:05] LABS: Glucose,Whole Blood 177 mg/dL (75-99)
[2021-10-25] MEDS: PRAMIPEXOLE 1 MG TAB PO SCH ×2 (06:08→16:53)
[2021-10-25] MEDS: MORPHINE SULFATE ER 15 MG TABLET PO SCH ×2 (06:08→16:49)
[2021-10-25] MEDS: HYDROcodone/APAP 10-325MG 1 EACH TAB PO SCH ×3 (06:08→17:33)
[2021-10-25] MEDS: methylPREDNISolone SOD SUCCI 125 MG/2 ML VIAL IV SCH ×4 (06:09→23:36)
[2021-10-25] MEDS: INSULIN ASPART (NovoLOG) 100 UNIT/ML VIAL SQ SCH ×4 (06:10→21:48)
[2021-10-25] MEDS: FORMOTEROL FUMARATE 20 MCG/2 ML NEBU INHALATION SCH ×2 (08:00→19:46)
[2021-10-25] MEDS: IPRATROPIUM-ALBUTEROL 3 ML NEB INHALATION SCH ×4 (08:00→19:46)
[2021-10-25] MEDS: BUDESONIDE 1 MG/2 ML NEBU INHALATION SCH ×2 (08:00→19:46)
[2021-10-25] MEDS: APIXABAN 5 MG TAB PO SCH (08:23)
[2021-10-25] MEDS: OXYMETAZOLINE 0.05% NASL SPRAY 1 SPRAY BOTTLE NASAL SCH ×2 (08:23→21:53)
[2021-10-25] MEDS: FAMOTIDINE 20 MG TAB PO SCH (08:23)
[2021-10-25] MEDS: FUROSEMIDE 20 MG TAB PO SCH (08:23)
[2021-10-25] MEDS: AMIODARONE 200 MG TAB PO SCH ×2 (08:23→21:48)
[2021-10-25] MEDS: ASPIRIN 81 MG PO SCH (08:23)
[2021-10-25] MEDS: lisinopriL 10 MG TAB PO SCH ×2 (08:23→21:47)
[2021-10-25] MEDS: METOPROLOL TARTRATE 50 MG TAB PO SCH ×3 (08:23→21:48)
[2021-10-25] MEDS: DILTIAZEM CD 120 MG CAP.ER.24H PO SCH (08:23)
--- NOTE | 2021-10-25 11:30 | P.PN ---
Subjective Progress Note Date: 10/25/21 Principal diagnosis: Shortness of breath, wheezing, hypoxia On 10/24/2021 patient seen in follow-up on selective care unit, he sitting up on the edge of the bed, breathing comfortably, he is currently down to 6 L of oxygen pulse ox is 92%, lung sounds are still positive for diffuse wheezes and rhonchi, but overall patient's is feeling better, oxygenation has improved although the chest x-ray still showing persistent areas of infiltrate with chronic parenchymal changes with confluent increased right mid to lower lung opacity silhouetting the right heart border and hemidiaphragm and scattered left-sided more central opacities. Patient has completed a course of cefepime, remains on vancomycin, so far there is been no growth on the blood and sputum cultures. He also continues on IV steroids with Solu-Medrol gram every 8 hours, he is on daily dose of Lasix, cough medicine, nebulized bronchodilators. Denies any chest discomfort, no hemoptysis. Breathing fairly easily. Yesterday's labs have been reviewed, his white blood cell count was 18.3, hemoglobin is 14.1 and electrolytes are unremarkable, BUN is 23 creatinine 0.6 On 10/25/2021 patient seen in follow-up on selective care unit, he remains on 6 L of oxygen pulse ox is 90%, he sounds are rhonchorous, congested, however he is not able to bring up much phlegm. Yesterday he was having some phlegm production with a blood-tinged mucus. We added cefepime back on, he remains on vancomycin, CULTURE data is negative, he is afebrile, does not appear to be in any acute distress, hemodynamically his been stable. His chest x-ray findings from yesterday was still showing significant right mid and lower lung co nsolidation. He continues on IV steroids and breathing treatments, he is on oral dose of Lasix. Follow up procalcitonn was negative at 0.03. His creatinine was 0.5 on yesterday's labs, Vanco trough was 15.3. Objective - Vital Signs Vital signs: Vital Signs Temp 97.6 F 10/25/21 04:00 Pulse 64 10/25/21 08:25 Resp 24 10/25/21 04:00 BP 148/63 10/25/21 04:00 Pulse Ox 90 L 10/25/21 08:00 Intake & Output 10/24/21 10/25/21 10/25/21 18:59 06:59 18:59 Intake Total 1860 1080 360 Output Total 975 1325 Balance 885 -245 360 Intake: IV 240 .9@10 x2 240 Intake, IV Titration 600 600 Amount Cefepime 2 gm In Sodium 100 100 Chloride 0.9% 100 ml @ 25 mls/hr IVPB Q12HR [facility] Rx #:[id number] Vancomycin 1,750 mg In 500 500 Sodium Chloride 0.9% 500 ml 500 ml @ 167 mls/hr IVPB Q12H [facility] Rx#: [id number] Oral 1020 480 360 Output: Urine 975 1325 Other: Voiding Method Urinal Urinal # Voids 2 # Bowel Movements 1 - Exam GENERAL EXAM: Alert, very pleasant, 76-year-old white male, on 6 L of oxygen and the pulse ox of 92% comfortable in no apparent distress. HEAD: Normocephalic/atraumatic. EYES: Normal reaction of pupils, equal size. Conjunctiva pink, sclera white. NOSE: Clear with pink turbinates. THROAT: No erythema or exudates. NECK: No masses, no JVD, no thyroid enlargement, no adenopathy. CHEST: No chest wall deformity. Symmetrical expansion. LUNGS: Equal air entry with diffuse rhonchi and crackles in the right mid and lower lung CVS: Regular rate and rhythm, normal S1 and S2, no gallops, no murmurs, no rubs ABDOMEN: Soft, nontender. No hepatosplenomegaly, normal bowel sounds, no guarding or rigidity. EXTREMITIES: No clubbing, no edema, no cyanosis, 2+ pulses and upper and lower extremities. MUSCULOSKELETAL: Muscle strength and tone normal. SPINE: No scoliosis or deformity SKIN: No rashes CENTRAL NERVOUS SYSTEM: Alert and oriented -3. No focal deficits, tone is normal in all 4 extremities. PSYCHIATRIC: Alert and oriented -3. Appropriate affect. Intact judgment and insight. - Labs CBC & Chem 7: 10/23/21 05:43 10/24/21 11:19 Labs: Abnormal Lab Results - Last 24 Hours (Table) 10/24/21 10/24/21 10/24/21 Range/Units 11:19 11:39 16:34 Creatinine 0.55 L (0.66-1.25) mg/dL POC Glucose (mg/dL) 135 H 122 H (75-99) mg/dL 10/24/21 10/25/21 Range/Units 20:12 06:03 Creatinine (0.66-1.25) mg/dL POC Glucose (mg/dL) 119 H 177 H (75-99) mg/dL Assessment and Plan Plan: Assessment: #1. Acute hypoxic respiratory failure second to bilateral pneumonia right more than left. This is most likely a bacterial infection. COVID 19 evaluation came back negative and the patient had a negative Legionella urine antigen. The patient remains on broad-spectrum antibiotics. The patient is currently off the BiPAP and the patient is currently on 6 L of O2 by nasal cannula. Chest x-ray still showing extensive amount consolidation on the right. No major improvement in the chest x-ray. Clinically however the patient is improving. Patient feels improved. He is less short of breath. The white cell count was also improving. Clinically remains stable #2. Acute non-ST segment elevation myocardial infarction, currently off IV heparin and the patient was started on long-term and to coagulation with Eliquis 5 mg by mouth twice a day. #3. Acute kidney injury, improving #4. Acute atrial fibrillation with rapid ventricular response , rate is controlled and the patient is on amiodarone 400 mg by mouth twice a day, metoprolol 50 mg by mouth 3 times a day and the patient is on long-term and coagulation with Eliquis. #5. Dyspnea secondary to above #6. History of COPD. #7. History of hypertension. #8. History of obstructive sleep apnea syndrome. #9. History of skin cancer. #10. Prior history of pneumonia.the patient's previous cultures from 04/02/2019 was strep pneumonia and pseudomonas aeruginosa. #11. Prior history of tobacco use. #12. Leukocytosis Plan: Clinically patient remains the same, without worsening, Continue cefepime and vancomycin Continue IV steroids and nebulized bronchodilators Patient is still congested, however he is not able to clear up much phlegm We'll discuss possibility of bronchoscopy with BAL if he is agreeable There is a possibility that the patient may have to be intubated for the procedure and possibly remain on event postprocedure If agreeable we'll make the patient nothing by mouth and board him for tomorrow I performed a history & physical examination of the patient and discussed their management with my nurse practitioner, Hyun Steiner. I reviewed the nurse practitioner's note and agree with the documented findings and plan of care. Lung sounds are positive for diffuse rhonchi throughout the lung taylor. The findings and the impression was discussed with the patient. I attest to the documentation by the nurse practitioner. Time with Patient: Less than 30
[2021-10-25 11:58] LABS: Glucose,Whole Blood 141 mg/dL (75-99)
--- NOTE | 2021-10-25 12:01 | P.PN ---
Subjective This is a 76-year-old gentleman with a past medical history significant for hypertension and dyslipidemia and sleep apnea and also chronic obstructive pulmonary disease, presented to the emergency department complaining of shortness of breath. We consulted to see the patient for further evaluation of abnormal cardiac enzymes and elevated troponin. The patient states that for the last few days he has not been feeding well. He has been experiencing increasing in the temperature associated with cough productive of sputum. Beside that he was experiencing increasing in the shortness of breath but no symptoms of chest pain or chest discomfort and no dizziness or lightheadedness or any feeling of heart racing or fluttering or presyncope or syncope. In the ER the patient was found to be hypoxic with oxygen saturation of 75% and subsequently he was placed on BiPAP with improvement in his oxygenation. Also he presented to the emergency department he was in atrial fibrillation with RVR and subsequently converted to normal sinus mechanism after he was started on Cardizem IV. Currently he is in sinus rhythm was sinus bradycardia. He still on Cardizem IV. He is also on heparin IV. The patient underwent a workup including EKG as described earlier showing A. fib with diffuse nonspecific ST and T wave abnormalities. No EKG after the patient was converted to normal sinus mechanism. Also the troponin came in to be elevated. The chest x-ray showed findings consistent with a pneumonia. He underwent a computed tomography scan of the chest which showed multiple findings including no pulmonary embolism, bilateral hilar adenopathy, bilateral infiltrate, and also small to moderate pericardial effusion, heart failure. The patient has no history of coronary artery disease or congestive heart failure or any cardiac arrhythmia and never seen any food safety coordinator in the past. When he was seen and examined he was in bilateral expiratory wheezing with regular heart sounds and states bilateral lower extremities edema 10/15/21 Echocardiogram revealed an EF between 50 and 55% with mild mitral and tricuspid regurgitation, mild aortic valve sclerosis, and moderately enlarged right ventricle with left ventricular hypertrophy. 10/25/2021 Patient examined this morning. Patient is sitting up in bed. He denies chest pain or pressure. He reports improvement in his shortness of breath, however, continues to have difficulty bringing up sputum. He denies any further bleeding in his stool. Patient's blood pressure improved with BP 148/63 and this morning with a BP 187/90 prior to his medications, we will monitor patient's BP trend . Telemetry reviewed, patient maintaining sinus mechanism. Meds: amiodarone 200 mg twice a day (started on 10/23/21), Eliquis 5 mg twice a day, aspirin 81 mg daily, atorvastatin 80 mg nightly, Cardizem 120 mg daily, Lasix 20 mg daily, lisinopril 10 mg twice a day, metoprolol titrate 50 mg 3 times a day PHYSICAL EXAM: VITAL SIGNS: Reviewed. GENERAL: Well-developed in no acute distress. NECK: Supple. No JVD or thyromegaly LUNGS: Respirations even and unlabored. Lungs diminished with scattered rhonchi. HEART: Regular rate and rhythm. S1 and S2 heard. EXTREMITIES: Normal range of motion. No clubbing or cyanosis. Peripheral pulses intact. Trace bilateral lower extremity edema ASSESSMENT: Bilateral pneumonia Acute COPD exacerbation Hypoxemia secondary to the above New onset paroxysmal atrial fibrillation with RVR Type II NSTEMI resulting from demand ischemia from RVR Obstructive sleep apnea PLAN: From a cardiology perspective, patient is remaining stable Continue Cardizem 120mg daily, metoprolol 50mg TID, Amiodarone 200mg BID (started on 10/23/21). Continue statin Will hold Aspirin and Continue Eliquis We will monitor for bleeding Continue telemetry monitoring Pulmonary following, Bronchoscopy with BAL is being discussed however, there is a possibility that the patient may have to be intubated for the procedure and possibly remain on event postprocedure Further recommendations pending patient course Nurse practitioner note has been reviewed by physician. Signing provider agrees with the documented findings, assessment, and plan of care. Objective - Vital Signs Vital signs: Vital Signs Temp 97.6 F 10/25/21 11:35 Pulse 57 L 10/25/21 11:35 Resp 18 10/25/21 11:35 BP 187/90 10/25/21 11:35 Pulse Ox 93 L 10/25/21 11:35 Intake & Output 10/24/21 10/25/21 10/25/21 18:59 06:59 18:59 Intake Total 1860 1080 360 Output Total 975 1325 Balance 885 -245 360 Intake: IV 240 .9@10 x2 240 Intake, IV Titration 600 600 Amount Cefepime 2 gm In Sodium 100 100 Chloride 0.9% 100 ml @ 25 mls/hr IVPB Q12HR [facility] Rx #:[id number] Vancomycin 1,750 mg In 500 500 Sodium Chloride 0.9% 500 ml 500 ml @ 167 mls/hr IVPB Q12H [facility] Rx#: [id number] Oral 1020 480 360 Output: Urine 975 1325 Other: Voiding Method Urinal Urinal # Voids 2 # Bowel Movements 1 - Labs CBC & Chem 7: 10/23/21 05:43 10/24/21 11:19 Labs: Abnormal Lab Results - Last 24 Hours (Table) 10/24/21 10/24/21 10/24/21 Range/Units 11:19 16:34 20:12 Creatinine 0.55 L (0.66-1.25) mg/dL POC Glucose (mg/dL) 122 H 119 H (75-99) mg/dL 10/25/21 Range/Units 06:03 Creatinine (0.66-1.25) mg/dL POC Glucose (mg/dL) 177 H (75-99) mg/dL
[2021-10-25] MEDS: VANCOMYCIN 1,750 MG in SODIUM CHLORIDE 0.9% 500 ML 500 ML IVPB SCH ×2 (12:12→23:35)
[2021-10-25 16:32] LABS: Glucose,Whole Blood 139 mg/dL (75-99)
[2021-10-25] MEDS: SERTRALINE 100 MG TAB PO SCH (16:50)
[2021-10-25 20:01] LABS: Glucose,Whole Blood 141 mg/dL (75-99)
--- NOTE | 2021-10-25 20:46 | P.PN ---
Progress Note - Text Progress Note Date: 10/25/21 Chief Complaint: Short of breath Hospital course This is a pleasant 76-year-old patient of Dr. Sultana. Chronic stable medical conditions include hypertension, obstructive sleep apnea, DJD, obesity. Depression, Patient presented increasing shortness of breath for 1 week, wheezing. Cough fever periods Sputum Production. Decrease Appetite Tired Rundown. Symptoms Became Progressively Worse. Found to Pulse Ox of 75% in the ER. Put on a BiPAP. Antibiotics. Bronchodilators. Admitted with bilateral pneumonia right greater than left, atrial fibrillation rapid ventricular rate, sepsis, COPD exacerbation. Started on IV cefepime, bronchodilators, IV steroids, IV heparin, IV Cardizem drip. Patient requiring BiPAP. Patient was changed over from IV heparin to eliquis. Beta blockers added. October 17: Breathing better. Decreased sputum production. On 12 L high flow nasal cannula. Had about half his breakfast. Not much appetite for lunch. Requested the patient sit up in a chair. Tired. Patient has been in sinus rhythm. October 18: Remains tired, short of breath. 12 L nasal cannula. Eating some. Vancomycin added by pulmonary. October 19: Tired. Short of breath. Remains on high flow nasal cannula. Intermittent BiPAP. Oral intake very well. Cough. I did today atrial fibrillation with rapid ventricular rate. Lopressor increased to 50 mg 3 times a day by cardiology. October 20: Feeling better. Sitting at the edge of the bed. 8 on his lunch. On 11 L nasal cannula. Patient is in sinus rhythm. Patient was started on oral amiodarone and oral Cardizem yesterday. October 21: Sitting of the edge of the bed. Eating better. 10 liters nasal cannula. Some cough. Sinus rhythm. October 22: Oral intake fair. Feels dryness of the nose and blockage of the nostril. A few nasal drops ordered. 9 L nasal cannula. Back in atrial fibrillation, rate controlled. Cough present. Nasal screen negative for MRSA. October 23: Down to 6 L of nasal cannula. Congested cough present. Currently sinus rhythm. Eating fair. October 24: Remains on 6 L nasal cannula. Oral intake fair. Cough. Sinus rhythm. Some bloodstained sputum. October 25: On 6 L nasal cannula. Some shortness of breath. Congested chest. Dr. Ball discontinued to eliquis to proceed for bronchoscopy on . Patient reminded to use incentive spirometry. Active Medications Acetaminophen (Acetaminophen Tab 325 Mg Tab) 650 mg PO Q6HR PRN PRN Reason: Mild Pain or Fever > 100.5 Hydrocodone Bitart/Acetaminophen (Hydrocodone/Apap 10-325mg 1 Each Tab) 1 each PO Q8HR PRN PRN Reason: Pain Hydrocodone Bitart/Acetaminophen (Hydrocodone/Apap 10-325mg 1 Each Tab) 1 each PO Q6H [facility] Last Admin: 10/25/21 17:33 Dose: 1 each Documented by: Albuterol/Ipratropium (Ipratropium-Albuterol 3 Ml Neb) 3 ml INHALATION RT-Q4H PRN PRN Reason: Shortness Of Breath Or Wheezing Last Admin: 10/17/21 11:28 Dose: 3 ml Documented by: Albuterol/Ipratropium (Ipratropium-Albuterol 3 Ml Neb) 3 ml INHALATION RT-QID [facility] Last Admin: 10/25/21 19:46 Dose: 3 ml Documented by: Alprazolam (Alprazolam 0.25 Mg Tab) 0.25 mg PO Q6HR PRN PRN Reason: Anxiety Last Admin: 10/19/21 21:30 Dose: 0.25 mg Documented by: Amiodarone HCl (Amiodarone 200 Mg Tab) 200 mg PO BID [facility] Stop: 10/31/21 08:00 Last Admin: 10/25/21 08:23 Dose: 200 mg Documented by: Amiodarone HCl (Amiodarone 200 Mg Tab) 200 mg PO DAILY [facility] Atorvastatin Calcium (Atorvastatin 80 Mg Tab) 80 mg PO [facility] Last Admin: 10/24/21 20:30 Dose: 80 mg Documented by: Budesonide (Budesonide 1 Mg/2 Ml Nebu) 1 mg INHALATION RT-BID [facility] Last Admin: 10/25/21 19:46 Dose: 1 mg Documented by: Calcium Carbonate/Glycine (Calcium Carbonate 500 Mg Chewable) 1,000 mg PO Q4HR PRN PRN Reason: Dyspepsia Last Admin: 10/14/21 18:02 Dose: 1,000 mg Documented by: Diltiazem HCl (Diltiazem Cd 120 Mg Cap.Er.24h) 120 mg PO DAILY [facility] Last Admin: 10/25/21 08:23 Dose: 120 mg Documented by: Famotidine (Famotidine 20 Mg Tab) 20 mg PO DAILY [facility] Last Admin: 10/25/21 08:23 Dose: 20 mg Documented by: Formoterol Fumarate (Formoterol Fumarate 20 Mcg/2 Ml Nebu) 20 mcg INHALATION RT-BID [facility] Last Admin: 10/25/21 19:46 Dose: 20 mcg Documented by: Furosemide (Furosemide 20 Mg Tab) 20 mg PO DAILY [facility] Last Admin: 10/25/21 08:23 Dose: 20 mg Documented by: Guaifenesin/Dextromethorphan (Guaifenesin-Dm 100-10mg/5ml 10 Ml Cup) 10 ml PO Q6HR PRN PRN Reason: Cough Vancomycin HCl 1,750 mg/ (Sodium Chloride) 500 mls @ 167 mls/hr IVPB Q12H [facility] Last Admin: 10/25/21 12:12 Dose: 167 mls/hr Documented by: Cefepime HCl 2 gm/ Sodium (Chloride) 100 mls @ 25 mls/hr IVPB Q8H [facility] Last Admin: 10/25/21 17:33 Dose: 25 mls/hr Documented by: Insulin Aspart (Insulin Aspart (Novolog) 100 Unit/Ml Vial) 0 unit SQ ACHS [facility]; Protocol Last Admin: 10/25/21 16:50 Dose: 1 unit Documented by: Lactulose (Lactulose 20 Gm/30 Ml Cup) 20 gm PO DAILY PRN PRN Reason: Constipation Lisinopril (Lisinopril 10 Mg Tab) 10 mg PO BID [facility] Last Admin: 10/25/21 08:23 Dose: 10 mg Documented by: Lorazepam (Lorazepam 2 Mg/Ml Inj) 0.5 mg IV Q8HR PRN PRN Reason: Anxiety Last Admin: 10/15/21 09:14 Dose: 0.5 mg Documented by: Melatonin (Melatonin 3 Mg Tablet) 3 mg PO HS PRN PRN Reason: Insomnia Last Admin: 10/22/21 00:13 Dose: 3 mg Documented by: Methylprednisolone Sodium Succinate (Methylprednisolone Sod Succi 125 Mg/2 Ml Vial) 60 mg IV Q6HR [facility] Last Admin: 10/25/21 17:33 Dose: 60 mg Documented by: Metoprolol Tartrate (Metoprolol Tartrate 50 Mg Tab) 50 mg PO TID [facility] Last Admin: 10/25/21 16:49 Dose: 50 mg Documented by: Morphine Sulfate (Morphine Sulfate Er 15 Mg Tablet) 15 mg PO BID@0600,1600 [facility]; Protocol Last Admin: 10/25/21 16:49 Dose: 15 mg Documented by: Naloxone HCl (Naloxone 0.4 Mg/Ml 1 Ml Vial) 0.2 mg IV Q2M PRN PRN Reason: Opioid Reversal Ondansetron HCl (Ondansetron 4 Mg/2 Ml Vial) 4 mg IVP Q8HR PRN PRN Reason: Nausea And Vomiting Oxymetazoline HCl (Oxymetazoline 0.05% Nasl [place] 1 [place] Bottle) 2 spray NASAL BID [facility] Last Admin: 10/25/21 08:23 Dose: 2 spray Documented by: Pramipexole Dihydrochloride (Pramipexole 1 Mg Tab) 1 mg PO BID@0600,1600 [facility] Last Admin: 10/25/21 16:53 Dose: 1 mg Documented by: Sertraline HCl (Sertraline 100 Mg Tab) 100 mg PO DAILY@1600 [facility] Last Admin: 10/25/21 16:50 Dose: 100 mg Documented by: Sodium Chloride (Sodium Chloride 0.65% Nasal [place] 44 Ml Btl) 2 spray NASAL QID PRN PRN Reason: Congestion Past medical history to include: COPD, hypertension, obstructive sleep apnea, DJD, skin cancer Social history: . Smoked for 30 years stopped in 1979. Family history: Reviewed, noncontributory to presentation Physical examination: VITAL SIGNS: 98.1, 59, 18, 165/80, 92% on 6 L GENERAL: Sitting at the edge of the bed, some shortness of breath EYES: Pupils equal. Conjunctiva normal. HEENT: External appearance of nose and ears normal, oral cavity grossly normal. NECK: JVD unable to assess; masses not palpable. HEART: First second sounds normal; no edema. LUNGS: Respiratory rate increased decreased breath sounds, some crackles ABDOMEN: Soft, nontender, liver spleen not palpable, no masses palpable. PSYCH: Alert and oriented x3; mood and affect normal MUSCULOSKELETAL:No Clubbing/cyanosis;muscles-grossly intact INVESTIGATIONS, reviewed in the clinical context: October 24: Creatinine 0.55 October 23: WBC 18.3 hemoglobin 14.1 platelets 49 potassium 4.7 BUN 23 creatinine 0.6 October 22: Creatinine 0.58 Accu-Cheks noted. Nasal screen negative for MRSA October 21: Creatinine 0.64 October 20: White count 12.9 hemoglobin 13.2 platelets 404 potassium 4.4 creat inine 0.5 to October 2: Potassium 4.5 crit 0.5 October 18: White count 18 hemoglobin 12.5 potassium 4.3 creatinine 0.61 October 17: White count 24.6 hemoglobin 11.9 platelets 277 sodium 141 potassium 4.2 creatinine 0.67. Pro-calcitonin 0.06 Chest x-ray film personally reviewed by me-[October 16] significant right-sided infiltrates White count 25.6 hemoglobin 15.9 platelets 324 increased neutrophils d-dimer 7.48 sodium 138 potassium 4.2. 38 creatinine 1.53 lactic acid 3.8 Troponin I 2.0, 1.7, 1.2 Coronavirus [PCR]: Not detected EKG tracing personally reviewed by me-atrial fibrillation ST-T wave changes, rate 138 Chest angiogram chest: Moderate emphysema. Extensive patchy and confluent consolidation throughout the right lung. Some of the left side 2. Hilar lymphadenopathy. Chest x-ray film personally reviewed by me-extensive infiltrate on the right mid zone and some on the left side 2-D echocardiogram: EF 50-55% Assessment and plan: -Severe pneumonia predominantly right-sided gram-negative organism: Slow to respond Cefepime 2 g every 12 hour. IV vancomycin . Plan for bronchoscopy on . -Severe sepsis from pneumonia: Better IV fluids. Antibiotics. -Paroxysmal Atrial fibrillation rapid ventricular rate on presentation. In and out of A. fib. Beta valente. [Received: IV heparin. IV Cardizem drip] Eliquis, Lopressor 50 mg 3 times a day. By mouth Cordarone. Cardizem 30 mg 3 times a day IV heparin monitoring: Discontinued Follow PTT -Acute COPD exacerbation in a prior smoker: Slow to respond DuoNeb. IV Solu-Medrol -Acute severe hypoxic respiratory failure from pneumonia: Slow to respond Intermittent BiPAP. 6 L high flow nasal cannula -Essential hypertension Zestril 10 mg daily Lopressor 50 mg 3 times a day. Cardizem 30 mg 3 times a day -Restless leg syndrome Mirapex 1 mg twice a day -Depression Zoloft 100 mg daily Primary osteoarthritis multiple joints bilaterally [place] 10 every 6 IV cefepime. IV vancomycin. IV Solu-Medrol. 6 L nasal cannula. Discussed with Dr. Ball. Plan for bronchoscopy on . Dilma kellogg.
[2021-10-25] MEDS: ATORVASTATIN 80 MG TAB PO SCH (21:47)
[2021-10-26] MEDS: CEFEPIME 2 GM in SODIUM CHLORIDE 0.9% 100 ML IVPB SCH ×3 (02:08→18:15)
[2021-10-26] MEDS: HYDROcodone/APAP 10-325MG 1 EACH TAB PO SCH ×5 (02:09→23:35)
[2021-10-26 06:07] LABS: Glucose,Whole Blood 111 mg/dL (75-99)
[2021-10-26] MEDS: INSULIN ASPART (NovoLOG) 100 UNIT/ML VIAL SQ SCH ×4 (06:13→21:22)
[2021-10-26] MEDS: methylPREDNISolone SOD SUCCI 125 MG/2 ML VIAL IV SCH ×4 (06:26→23:34)
[2021-10-26] MEDS: PRAMIPEXOLE 1 MG TAB PO SCH ×2 (06:27→18:14)
[2021-10-26] MEDS: MORPHINE SULFATE ER 15 MG TABLET PO SCH ×2 (06:27→15:41)
[2021-10-26 06:50] LABS: African American GFR (CKD) >90 (>60 ml/min/1.73 sqM); Anion Gap 2 mmol/L; Blood Urea Nitrogen 22 mg/dL (9-20); Calcium 8.2 mg/dL (8.4-10.2); Carbon Dioxide 29 mmol/L (22-30); Chloride 104 mmol/L (98-107); Glucose 109 mg/dL (74-99); Non-African American GFR(CKD) >90 (>60 ml/min/1.73 sqM); Potassium 4.4 mmol/L (3.5-5.1); Sodium 135 mmol/L (137-145)
[2021-10-26] MEDS: BUDESONIDE 1 MG/2 ML NEBU INHALATION SCH ×2 (08:07→19:46)
[2021-10-26] MEDS: FORMOTEROL FUMARATE 20 MCG/2 ML NEBU INHALATION SCH ×2 (08:07→19:45)
[2021-10-26] MEDS: IPRATROPIUM-ALBUTEROL 3 ML NEB INHALATION SCH ×4 (08:07→19:46)
[2021-10-26] MEDS: FUROSEMIDE 20 MG TAB PO SCH (08:10)
[2021-10-26] MEDS: AMIODARONE 200 MG TAB PO SCH ×2 (08:10→21:22)
[2021-10-26] MEDS: DILTIAZEM CD 120 MG CAP.ER.24H PO SCH (08:10)
[2021-10-26] MEDS: FAMOTIDINE 20 MG TAB PO SCH (08:10)
[2021-10-26] MEDS: METOPROLOL TARTRATE 50 MG TAB PO SCH ×3 (08:11→21:22)
[2021-10-26] MEDS: lisinopriL 10 MG TAB PO SCH ×2 (08:15→21:22)
[2021-10-26] MEDS: OXYMETAZOLINE 0.05% NASL SPRAY 1 SPRAY BOTTLE NASAL SCH ×2 (08:16→21:22)
--- NOTE | 2021-10-26 08:19 | XR ---
EXAMINATION TYPE: XR chest 1V portable DATE OF EXAM: 10/26/2021 COMPARISON: Chest x-ray 10/24/2021 CT 10/13/2021 HISTORY: Pneumonia TECHNIQUE: Single frontal view of the chest is obtained. FINDINGS: Findings are similar to prior exam. No pneumothorax. Heart is likely stable but partially obscured. Patient is rotated. Rib deformities on the right are stable and chronic. Bilateral airspace disease is again noted greater on the right. IMPRESSION: Bilateral pneumonia, there is underlying emphysema and mediastinal, hilar adenopathy, pe ricardial effusion
--- NOTE | 2021-10-26 08:21 | P.PN ---
Subjective Progress Note Date: 10/26/21 Principal diagnosis: Shortness of breath, wheezing, hypoxia On 10/24/2021 patient seen in follow-up on selective care unit, he sitting up on the edge of the bed, breathing comfortably, he is currently down to 6 L of oxygen pulse ox is 92%, lung sounds are still positive for diffuse wheezes and rhonchi, but overall patient's is feeling better, oxygenation has improved although the chest x-ray still showing persistent areas of infiltrate with chronic parenchymal changes with confluent increased right mid to lower lung opacity silhouetting the right heart border and hemidiaphragm and scattered left-sided more central opacities. Patient has completed a course of cefepime, remains on vancomycin, so far there is been no growth on the blood and sputum cultures. He also continues on IV steroids with Solu-Medrol gram every 8 hours, he is on daily dose of Lasix, cough medicine, nebulized bronchodilators. Denies any chest discomfort, no hemoptysis. Breathing fairly easily. Yesterday's labs have been reviewed, his white blood cell count was 18.3, hemoglobin is 14.1 and electrolytes are unremarkable, BUN is 23 creatinine 0.6 On 10/25/2021 patient seen in follow-up on selective care unit, he remains on 6 L of oxygen pulse ox is 90%, he sounds are rhonchorous, congested, however he is not able to bring up much phlegm. Yesterday he was having some phlegm production with a blood-tinged mucus. We added cefepime back on, he remains on vancomycin, CULTURE data is negative, he is afebrile, does not appear to be in any acute distress, hemodynamically his been stable. His chest x-ray findings from yesterday was still showing significant right mid and lower lung co nsolidation. He continues on IV steroids and breathing treatments, he is on oral dose of Lasix. Follow up procalcitonn was negative at 0.03. His creatinine was 0.5 on yesterday's labs, Vanco trough was 15.3. On October 26, 2021 patient seen in follow-up on selective care unit, he still feels short of breath, his cough is congested but nonproductive. He is on 6 L of oxygen his pulse ox is 90-93%, lung sounds are diminished, with the scattered wheezes and rhonchi, patient continues on a combination of cefepime and vancomycin he has been slow to improve, his follow-up chest x-ray today shows stable right mid and lower lung opacity. Denies chest pain or hemoptysis, does have exertional dyspnea, patient continues on IV steroids with Solu-Medrol 60 mg every 6 hours, antibiotics as mentioned above, all his culture data has been negative. His been afebrile, hemodynamically he has been stable. His Eliquis has been on hold since yesterday and we discussed bronchoscopy with BAL and possible biopsies tomorrow on , 10/27/2021 with which the patient is agreeable to proceed. Objective - Vital Signs Vital signs: Vital Signs Temp 98.5 F 10/26/21 07:41 Pulse 62 10/26/21 08:08 Resp 19 10/26/21 07:41 BP 144/86 10/26/21 07:41 Pulse Ox 90 L 10/26/21 07:41 Intake & Output 10/25/21 10/26/21 10/26/21 18:59 06:59 18:59 Intake Total 1320 120 Output Total 1725 1575 Balance -405 -1575 120 Intake: Intake, IV Titration 600 Amount Cefepime 2 gm In Sodium 100 Chloride 0.9% 100 ml @ 25 mls/hr IVPB Q8H [facility] Rx#: [id number] Vancomycin 1,750 mg In 500 Sodium Chloride 0.9% 500 ml 500 ml @ 167 mls/hr IVPB Q12H [facility] Rx#: [id number] Oral 720 120 Output: Urine 1725 1575 Other: Voiding Method Urinal Urinal # Voids 2 - Exam GENERAL EXAM: Alert, very pleasant, 76-year-old white male, on 6 L of oxygen and the pulse ox of 92% comfortable in no apparent distress. HEAD: Normocephalic/atraumatic. EYES: Normal reaction of pupils, equal size. Conjunctiva pink, sclera white. NOSE: Clear with pink turbinates. THROAT: No erythema or exudates. NECK: No masses, no JVD, no thyroid enlargement, no adenopathy. CHEST: No chest wall deformity. Symmetrical expansion. LUNGS: Equal air entry with diffuse rhonchi and crackles in the right mid and l ower lung CVS: Regular rate and rhythm, normal S1 and S2, no gallops, no murmurs, no rubs ABDOMEN: Soft, nontender. No hepatosplenomegaly, normal bowel sounds, no guarding or rigidity. EXTREMITIES: No clubbing, no edema, no cyanosis, 2+ pulses and upper and lower extremities. MUSCULOSKELETAL: Muscle strength and tone normal. SPINE: No scoliosis or deformity SKIN: No rashes CENTRAL NERVOUS SYSTEM: Alert and oriented -3. No focal deficits, tone is normal in all 4 extremities. PSYCHIATRIC: Alert and oriented -3. Appropriate affect. Intact judgment and insight. - Labs CBC & Chem 7: 10/23/21 05:43 10/26/21 05:41 Labs: Abnormal Lab Results - Last 24 Hours (Table) 10/25/21 10/25/21 10/25/21 Range/Units 11:56 16:17 20:00 Sodium (137-145) mmol/L BUN (9-20) mg/dL Creatinine (0.66-1.25) mg/dL Glucose (74-99) mg/dL POC Glucose (mg/dL) 141 H 139 H 141 H (75-99) mg/dL Calcium (8.4-10.2) mg/dL 10/26/21 10/26/21 Range/Units 05:41 06:06 Sodium 135 L (137-145) mmol/L BUN 22 H (9-20) mg/dL Creatinine 0.61 L (0.66-1.25) mg/dL Glucose 109 H (74-99) mg/dL POC Glucose (mg/dL) 111 H (75-99) mg/dL Calcium 8.2 L (8.4-10.2) mg/dL Assessment and Plan Plan: Assessment: #1. Acute hypoxic respiratory failure second to bilateral pneumonia right more than left. This is most likely a bacterial infection. COVID 19 evaluation came back negative and the patient had a negative Legionella urine antigen. The patient remains on broad-spectrum antibiotics. The patient is currently off the BiPAP and the patient is currently on 6 L of O2 by nasal cannula. Chest x-ray still showing extensive amount consolidation on the right. No major improvement in the chest x-ray. Clinically however the patient is improving. Patient feels improved. He is less short of breath. The white cell count was also improving. Clinically remains stable #2. Acute non-ST segment elevation myocardial infarction, currently off IV heparin and the patient was started on long-term and to coagulation with Eliquis 5 mg by mouth twice a day. #3. Acute kidney injury, improving #4. Acute atrial fibrillation with rapid ventricular response , rate is controlled and the patient is on amiodarone 400 mg by mouth twice a day, metoprolol 50 mg by mouth 3 times a day and the patient is on long-term and coagulation with Eliquis. #5. Dyspnea secondary to above #6. History of COPD. #7. History of hypertension. #8. History of obstructive sleep apnea syndrome. #9. History of skin cancer. #10. Prior history of pneumonia.the patient's previous cultures from 04/02/2019 was strep pneumonia and pseudomonas aeruginosa. #11. Prior history of tobacco use. #12. Leukocytosis Plan: Chest x-ray still shows stable right lung opacity/consolidation Clinically patient has been slow to improve, with exertional dyspnea, and chest congestion Continue cefepime and vancomycin Continue IV steroids and nebulized bronchodilators Eliquis has been placed on hold, patient is agreeable to proceed with bronchoscopy with bronchoalveolar lavage and possible biopsies on 10/27/2021 There is a possibility that the patient may have to be intubated for the procedure This was discussed with the patient and patient agrees with the plan I performed a history & physical examination of the patient and discussed their management with my nurse practitioner, Hyun Steiner. I reviewed the nurse practitioner's note and agree with the documented findings and plan of care. Lung sounds are positive for diffuse rhonchi throughout the lung taylor. The findings and the impression was discussed with the patient. I attest to the documentation by the nurse practitioner. Time with Patient: Less than 30
[2021-10-26 11:49] LABS: Glucose,Whole Blood 163 mg/dL (75-99)
[2021-10-26] MEDS: VANCOMYCIN 1,750 MG in SODIUM CHLORIDE 0.9% 500 ML 500 ML IVPB SCH ×2 (12:09→23:34)
[2021-10-26] MEDS: SERTRALINE 100 MG TAB PO SCH (15:40)
[2021-10-26 16:34] LABS: Glucose,Whole Blood 104 mg/dL (75-99)
--- NOTE | 2021-10-26 19:43 | P.PN ---
Progress Note - Text Progress Note Date: 10/26/21 Chief Complaint: Short of breath Hospital course This is a pleasant 76-year-old patient of Dr. Sultana. Chronic stable medical conditions include hypertension, obstructive sleep apnea, DJD, obesity. Depression, Patient presented increasing shortness of breath for 1 week, wheezing. Cough fever periods Sputum Production. Decrease Appetite Tired Rundown. Symptoms Became Progressively Worse. Found to Pulse Ox of 75% in the ER. Put on a BiPAP. Antibiotics. Bronchodilators. Admitted with bilateral pneumonia right greater than left, atrial fibrillation rapid ventricular rate, sepsis, COPD exacerbation. Started on IV cefepime, bronchodilators, IV steroids, IV heparin, IV Cardizem drip. Patient requiring BiPAP. Patient was changed over from IV heparin to eliquis. Beta blockers added. October 17: Breathing better. Decreased sputum production. On 12 L high flow nasal cannula. Had about half his breakfast. Not much appetite for lunch. Requested the patient sit up in a chair. Tired. Patient has been in sinus rhythm. October 18: Remains tired, short of breath. 12 L nasal cannula. Eating some. Vancomycin added by pulmonary. October 19: Tired. Short of breath. Remains on high flow nasal cannula. Intermittent BiPAP. Oral intake very well. Cough. I did today atrial fibrillation with rapid ventricular rate. Lopressor increased to 50 mg 3 times a day by cardiology. October 20: Feeling better. Sitting at the edge of the bed. 8 on his lunch. On 11 L nasal cannula. Patient is in sinus rhythm. Patient was started on oral amiodarone and oral Cardizem yesterday. October 21: Sitting of the edge of the bed. Eating better. 10 liters nasal cannula. Some cough. Sinus rhythm. October 22: Oral intake fair. Feels dryness of the nose and blockage of the nostril. A few nasal drops ordered. 9 L nasal cannula. Back in atrial fibrillation, rate controlled. Cough present. Nasal screen negative for MRSA. October 23: Down to 6 L of nasal cannula. Congested cough present. Currently sinus rhythm. Eating fair. October 24: Remains on 6 L nasal cannula. Oral intake fair. Cough. Sinus rhythm. Some bloodstained sputum. October 25: On 6 L nasal cannula. Some shortness of breath. Congested chest. Dr. Ball discontinued to eliquis to proceed for bronchoscopy on . Patient reminded to use incentive spirometry. October 26: Congested cough. Still bringing up slight bloody sputum. Eliquis was held yesterday. For bronchoscopy tomorrow. Oral intake fair. Remains on 6 L nasal cannula. Active Medications Acetaminophen (Acetaminophen Tab 325 Mg Tab) 650 mg PO Q6HR PRN PRN Reason: Mild Pain or Fever > 100.5 Hydrocodone Bitart/Acetaminophen (Hydrocodone/Apap 10-325mg 1 Each Tab) 1 each PO Q8HR PRN PRN Reason: Pain Hydrocodone Bitart/Acetaminophen (Hydrocodone/Apap 10-325mg 1 Each Tab) 1 each PO Q6H [facility] Last Admin: 10/26/21 18:14 Dose: 1 each Documented by: Albuterol/Ipratropium (Ipratropium-Albuterol 3 Ml Neb) 3 ml INHALATION RT-Q4H PRN PRN Reason: Shortness Of Breath Or Wheezing Last Admin: 10/17/21 11:28 Dose: 3 ml Documented by: Albuterol/Ipratropium (Ipratropium-Albuterol 3 Ml Neb) 3 ml INHALATION RT-QID [facility] Last Admin: 10/26/21 15:08 Dose: 3 ml Documented by: Alprazolam (Alprazolam 0.25 Mg Tab) 0.25 mg PO Q6HR PRN PRN Reason: Anxiety Last Admin: 10/19/21 21:30 Dose: 0.25 mg Documented by: Amiodarone HCl (Amiodarone 200 Mg Tab) 200 mg PO BID [facility] Stop: 10/31/21 08:00 Last Admin: 10/26/21 08:10 Dose: 200 mg Documented by: Amiodarone HCl (Amiodarone 200 Mg Tab) 200 mg PO DAILY [facility] Atorvastatin Calcium (Atorvastatin 80 Mg Tab) 80 mg PO HS [facility] Last Admin: 10/25/21 21:47 Dose: 80 mg Documented by: Budesonide (Budesonide 1 Mg/2 Ml Nebu) 1 mg INHALATION RT-BID [facility] Last Admin: 10/26/21 08:07 Dose: 1 mg Documented by: Calcium Carbonate/Glycine (Calcium Carbonate 500 Mg Chewable) 1,000 mg PO Q4HR PRN PRN Reason: Dyspepsia Last Admin: 10/14/21 18:02 Dose: 1,000 mg Documented by: Diltiazem HCl (Diltiazem Cd 120 Mg Cap.Er.24h) 120 mg PO DAILY [facility] Last Admin: 10/26/21 08:10 Dose: 120 mg Documented by: Famotidine (Famotidine 20 Mg Tab) 20 mg PO DAILY [facility] Last Admin: 10/26/21 08:10 Dose: 20 mg Documented by: Formoterol Fumarate (Formoterol Fumarate 20 Mcg/2 Ml Nebu) 20 mcg INHALATION RT-BID [facility] Last Admin: 10/26/21 08:07 Dose: 20 mcg Documented by: Furosemide (Furosemide 20 Mg Tab) 20 mg PO DAILY [facility] Last Admin: 10/26/21 08:10 Dose: 20 mg Documented by: Guaifenesin/Dextromethorphan (Guaifenesin-Dm 100-10mg/5ml 10 Ml Cup) 10 ml PO Q6HR PRN PRN Reason: Cough Vancomycin HCl 1,750 mg/ (Sodium Chloride) 500 mls @ 167 mls/hr IVPB Q12H [facility] Last Admin: 10/26/21 12:09 Dose: 167 mls/hr Documented by: Cefepime HCl 2 gm/ Sodium (Chloride) 100 mls @ 25 mls/hr IVPB Q8H [facility] Last Admin: 10/26/21 18:15 Dose: 25 mls/hr Documented by: Insulin Aspart (Insulin Aspart (Novolog) 100 Unit/Ml Vial) 0 unit SQ ACHS [facility]; Protocol Last Admin: 10/26/21 18:12 Dose: Not Given Documented by: Lactulose (Lactulose 20 Gm/30 Ml Cup) 20 gm PO DAILY PRN PRN Reason: Constipation Lisinopril (Lisinopril 10 Mg Tab) 10 mg PO BID [facility] Last Admin: 10/26/21 08:15 Dose: 10 mg Documented by: Lorazepam (Lorazepam 2 Mg/Ml Inj) 0.5 mg IV Q8HR PRN PRN Reason: Anxiety Last Admin: 10/15/21 09:14 Dose: 0.5 mg Documented by: Melatonin (Melatonin 3 Mg Tablet) 3 mg PO HS PRN PRN Reason: Insomnia Last Admin: 10/22/21 00:13 Dose: 3 mg Documented by: Methylprednisolone Sodium Succinate (Methylprednisolone Sod Succi 125 Mg/2 Ml Vial) 60 mg IV Q6HR [facility] Last Admin: 10/26/21 18:15 Dose: 60 mg Documented by: Metoprolol Tartrate (Metoprolol Tartrate 50 Mg Tab) 50 mg PO TID [facility] Last Admin: 10/26/21 15:41 Dose: 50 mg Documented by: Miscellaneous Information (Vancomycin Trough Due 1 Each Misc) 0 each MISCELLANE DIRECTED ONE Stop: 10/27/21 11:01 Morphine Sulfate (Morphine Sulfate Er 15 Mg Tablet) 15 mg PO BID@0600,1600 [facility]; Protocol Last Admin: 10/26/21 15:41 Dose: 15 mg Documented by: Naloxone HCl (Naloxone 0.4 Mg/Ml 1 Ml Vial) 0.2 mg IV Q2M PRN PRN Reason: Opioid Reversal Ondansetron HCl (Ondansetron 4 Mg/2 Ml Vial) 4 mg IVP Q8HR PRN PRN Reason: Nausea And Vomiting Oxymetazoline HCl (Oxymetazoline 0.05% Nasl [place] 1 Congress Bottle) 2 spray NASAL BID [facility] Last Admin: 10/26/21 08:16 Dose: 2 spray Documented by: Pramipexole Dihydrochloride (Pramipexole 1 Mg Tab) 1 mg PO BID@0600,1600 [facility] Last Admin: 10/26/21 18:14 Dose: 1 mg Documented by: Sertraline HCl (Sertraline 100 Mg Tab) 100 mg PO DAILY@1600 [facility] Last Admin: 10/26/21 15:40 Dose: 100 mg Documented by: Sodium Chloride (Sodium Chloride 0.65% Nasal [place] 44 Ml Btl) 2 spray NASAL QID PRN PRN Reason: Congestion Past medical history to include: COPD, hypertension, obstructive sleep apnea, DJD, skin cancer Social history: . Smoked for 30 years stopped in 1979. Family history: Reviewed, noncontributory to presentation Physical examination: VITAL SIGNS: He 7.8, 56, 19, 186/81, 91% 6 L GENERAL: Sitting at the edge of the bed, congested cough EYES: Pupils equal. Conjunctiva normal. HEENT: External appearance of nose and ears normal, oral cavity grossly normal. NECK: JVD unable to assess; masses not palpable. HEART: First second sounds normal; no edema. LUNGS: Respiratory rate increased decreased breath sounds, some crackles ABDOMEN: Soft, nontender, liver spleen not palpable, no masses palpable. PSYCH: Alert and oriented x3; mood and affect normal MUSCULOSKELETAL:No Clubbing/cyanosis;muscles-grossly intact INVESTIGATIONS, reviewed in the clinical context: October 26: Potassium 4.4 creatinine 0.61 October 24: Creatinine 0.55 October 23: WBC 18.3 hemoglobin 14.1 platelets 49 potassium 4.7 BUN 23 creatinine 0.6 October 22: Creatinine 0.58 Accu-Cheks noted. Nasal screen negative for MRSA October 21: Creatinine 0.64 October 20: White count 12.9 hemoglobin 13.2 platelets 404 potassium 4.4 creatinine 0.5 to October 19: Potassium 4.5 crit 0.5 October 18: White count 18 hemoglobin 12.5 potassium 4.3 creatinine 0.61 October 17: White count 24.6 hemoglobin 11.9 platelets 277 sodium 141 potassium 4.2 creatinine 0.67. Pro-calcitonin 0.06 Chest x-ray film personally reviewed by me-[October 16] significant right-sided infiltrates White count 25.6 hemoglobin 15.9 platelets 324 increased neutrophils d-dimer 7.48 sodium 138 potassium 4.2. 38 creatinine 1.53 lactic acid 3.8 Troponin I 2.0, 1.7, 1.2 Coronavirus [PCR]: Not detected EKG tracing personally reviewed by me-atrial fibrillation ST-T wave changes, rate 138 Chest angiogram chest: Moderate emphysema. Extensive patchy and confluent consolidation throughout the right lung. Some of the left side 2. Hilar lymphadenopathy. Chest x-ray film personally reviewed by me-extensive infiltrate on the right mid zone and some on the left side 2-D echocardiogram: EF 50-55% Assessment and plan: -Severe pneumonia predominantly right-sided gram-negative organism: Slow to respond Cefepime 2 g every 12 hour. IV vancomycin . Plan for bronchoscopy on . -Severe sepsis from pneumonia: Better IV fluids. Antibiotics. -Paroxysmal Atrial fibrillation rapid ventricular rate on presentation. In and out of A. fib. Beta valente. [Received: IV heparin. IV Cardizem drip] Eliquis, Lopressor 50 mg 3 times a day. By mouth Cordarone. Cardizem 30 mg 3 times a day IV heparin monitoring: Discontinued Follow PTT -Acute COPD exacerbation in a prior smoker: Slow to respond DuoNeb. IV Solu-Medrol 60 mg every 6 -Acute severe hypoxic respiratory failure from pneumonia: Slow to respond Intermittent BiPAP. 6 L high flow nasal cannula -Essential hypertension Zestril 10 mg daily Lopressor 50 mg 3 times a day. Cardizem 30 mg 3 times a day -Restless leg syndrome Mirapex 1 mg twice a day -Depression Zoloft 100 mg daily Primary osteoarthritis multiple joints bilaterally [place] 10 every 6 IV cefepime. IV vancomycin. IV Solu-Medrol. 6 L nasal cannula. For bronchoscopy tomorrow. Discussed with patient.
[2021-10-26 20:32] LABS: Glucose,Whole Blood 168 mg/dL (75-99)
[2021-10-26] MEDS: ATORVASTATIN 80 MG TAB PO SCH (21:22)
[2021-10-27] MEDS: CEFEPIME 2 GM in SODIUM CHLORIDE 0.9% 100 ML IVPB SCH ×3 (03:01→18:00)
[2021-10-27 06:15] LABS: Glucose,Whole Blood 116 mg/dL (75-99)
[2021-10-27] MEDS: HYDROcodone/APAP 10-325MG 1 EACH TAB PO SCH ×4 (06:21→23:15)
[2021-10-27] MEDS: PRAMIPEXOLE 1 MG TAB PO SCH ×2 (06:21→17:48)
[2021-10-27] MEDS: MORPHINE SULFATE ER 15 MG TABLET PO SCH ×2 (06:22→17:48)
[2021-10-27] MEDS: methylPREDNISolone SOD SUCCI 125 MG/2 ML VIAL IV SCH ×4 (06:22→23:53)
[2021-10-27] MEDS: IPRATROPIUM-ALBUTEROL 3 ML NEB INHALATION SCH ×4 (07:31→20:37)
[2021-10-27] MEDS: FORMOTEROL FUMARATE 20 MCG/2 ML NEBU INHALATION SCH ×2 (07:31→20:37)
[2021-10-27] MEDS: BUDESONIDE 1 MG/2 ML NEBU INHALATION SCH ×2 (07:31→20:37)
--- NOTE | 2021-10-27 08:27 | P.PN ---
Subjective Progress Note Date: 10/27/21 Principal diagnosis: Shortness of breath, wheezing, hypoxia On 10/24/2021 patient seen in follow-up on selective care unit, he sitting up on the edge of the bed, breathing comfortably, he is currently down to 6 L of oxygen pulse ox is 92%, lung sounds are still positive for diffuse wheezes and rhonchi, but overall patient's is feeling better, oxygenation has improved although the chest x-ray still showing persistent areas of infiltrate with chronic parenchymal changes with confluent increased right mid to lower lung opacity silhouetting the right heart border and hemidiaphragm and scattered left-sided more central opacities. Patient has completed a course of cefepime, remains on vancomycin, so far there is been no growth on the blood and sputum cultures. He also continues on IV steroids with Solu-Medrol gram every 8 hours, he is on daily dose of Lasix, cough medicine, nebulized bronchodilators. Denies any chest discomfort, no hemoptysis. Breathing fairly easily. Yesterday's labs have been reviewed, his white blood cell count was 18.3, hemoglobin is 14.1 and electrolytes are unremarkable, BUN is 23 creatinine 0.6 On 10/25/2021 patient seen in follow-up on selective care unit, he remains on 6 L of oxygen pulse ox is 90%, he sounds are rhonchorous, congested, however he is not able to bring up much phlegm. Yesterday he was having some phlegm production with a blood-tinged mucus. We added cefepime back on, he remains on vancomycin, CULTURE data is negative, he is afebrile, does not appear to be in any acute distress, hemodynamically his been stable. His chest x-ray findings from yesterday was still showing significant right mid and lower lung co nsolidation. He continues on IV steroids and breathing treatments, he is on oral dose of Lasix. Follow up procalcitonn was negative at 0.03. His creatinine was 0.5 on yesterday's labs, Vanco trough was 15.3. On October 26, 2021 patient seen in follow-up on selective care unit, he still feels short of breath, his cough is congested but nonproductive. He is on 6 L of oxygen his pulse ox is 90-93%, lung sounds are diminished, with the scattered wheezes and rhonchi, patient continues on a combination of cefepime and vancomycin he has been slow to improve, his follow-up chest x-ray today shows stable right mid and lower lung opacity. Denies chest pain or hemoptysis, does have exertional dyspnea, patient continues on IV steroids with Solu-Medrol 60 mg every 6 hours, antibiotics as mentioned above, all his culture data has been negative. His been afebrile, hemodynamically he has been stable. His Eliquis has been on hold since yesterday and we discussed bronchoscopy with BAL and possible biopsies tomorrow on , 10/27/2021 with which the patient is agreeable to proceed. On 10/27/2021 patient seen in follow-up on selective care unit, he is awake and alert, in no acute distress, he is on 6 L of oxygen pulse ox is 92-94%, his been afebrile overnight, hemodynamically has been stable, lung sounds reveal diffuse rhonchi bilaterally, patient has been having a congested cough, at times his been bringing up some dark-colored blood-tinged sputum. But most of the time his cough has been nonproductive, he remains on a combination of cefepime and vancomycin, his culture data remains negative thus far. His Eliquis is on hold, patient is in sinus mechanism with a controlled rate, yesterday his chest x-ray did not show significant improvement in appearance of his right lung pneumonia with addition of infiltration in the left upper lobe. he is scheduled for bronchoscopy with BAL and possible biopsies today at 12:30, his been nothing by mouth after midnight. Objective - Vital Signs Vital signs: Vital Signs Temp 98.5 F 10/27/21 03:00 Pulse 62 10/27/21 08:06 Resp 21 10/27/21 03:00 BP 175/77 10/27/21 03:00 Pulse Ox 92 L 10/27/21 03:00 Intake & Output 10/26/21 10/27/21 10/27/21 18:59 06:59 18:59 Intake Total 240 840 Output Total 1460 1500 Balance -1220 -660 Weight 110 kg Intake: Oral 240 840 Output: Urine 1460 1500 Other: Voiding Method Urinal Urinal - Exam GENERAL EXAM: Alert, very pleasant, 76-year-old white male, on 6 L of oxygen and the pulse ox of 92% comfortable in no apparent distress. HEAD: Normocephalic/atraumatic. EYES: Normal reaction of pupils, equal size. Conjunctiva pink, sclera white. NOSE: Clear with pink turbinates. THROAT: No erythema or exudates. NECK: No masses, no JVD, no thyroid enlargement, no adenopathy. CHEST: No chest wall deformity. Symmetrical expansion. LUNGS: Equal air entry with diffuse rhonchi and crackles in the right mid and lower lung CVS: Regular rate and rhythm, normal S1 and S2, no gallops, no murmurs, no rubs ABDOMEN: Soft, nontender. No hepatosplenomegaly, normal bowel sounds, no guarding or rigidity. EXTREMITIES: No clubbing, no edema, no cyanosis, 2+ pulses and upper and lower extremities. MUSCULOSKELETAL: Muscle strength and tone normal. SPINE: No scoliosis or deformity SKIN: No rashes CENTRAL NERVOUS SYSTEM: Alert and oriented -3. No focal deficits, tone is normal in all 4 extremities. PSYCHIATRIC: Alert and oriented -3. Appropriate affect. Intact judgment and insight. - Labs CBC & Chem 7: 10/23/21 05:43 10/26/21 05:41 Labs: Abnormal Lab Results - Last 24 Hours (Table) 10/26/21 10/26/21 10/26/21 Range/Units 11:46 16:32 20:30 POC Glucose (mg/dL) 163 H 104 H 168 H (75-99) mg/dL 10/27/21 Range/Units 05:59 POC Glucose (mg/dL) 116 H (75-99) mg/dL Assessment and Plan Plan: Assessment: #1. Acute hypoxic respiratory failure second to bilateral pneumonia right more than left. This is most likely a bacterial infection. COVID 19 evaluation came back negative and the patient had a negative Legionella urine antigen. The patient remains on broad-spectrum antibiotics. The patient is currently off the BiPAP and the patient is currently on 6 L of O2 by nasal cannula. Chest x-ray still showing extensive amount consolidation on the right. No major improvement in the chest x-ray. Clinically however the patient is improving. Patient feels improved. He is less short of breath. The white cell count was also improving. Clinically remains stable #2. Acute non-ST segment elevation myocardial infarction, currently off IV heparin and the patient was started on long-term and to coagulation with Eliquis 5 mg by mouth twice a day. #3. Acute kidney injury, improving #4. Acute atrial fibrillation with rapid ventricular response , rate is controlled and the patient is on amiodarone 400 mg by mouth twice a day, metoprolol 50 mg by mouth 3 times a day and the patient is on long-term and coagulation with Eliquis. #5. Dyspnea secondary to above #6. History of COPD. #7. History of hypertension. #8. History of obstructive sleep apnea syndrome. #9. History of skin cancer. #10. Prior history of pneumonia.the patient's previous cultures from 04/02/2019 was strep pneumonia and pseudomonas aeruginosa. #11. Prior history of tobacco use. #12. Leukocytosis Plan: Continue same antibiotics Chest x-ray still shows stable right lung opacity/consolidation and left upper lobe airspace disease Continue IV steroids and nebulized bronchodilators Eliquis has been placed on hold, Bronchoscopy with BAL and possible biopsies today at 1230 I performed a history & physical examination of the patient and discussed their management with my nurse practitioner, Hyun Steiner. I reviewed the nurse practitioner's note and agree with the documented findings and plan of care. Lung sounds are positive for diffuse rhonchi throughout the lung taylor. The findings and the impression was discussed with the patient. I attest to the documentation by the nurse practitioner. Time with Patient: Less than 30
[2021-10-27] MEDS: INSULIN ASPART (NovoLOG) 100 UNIT/ML VIAL SQ SCH ×4 (08:54→19:03)
[2021-10-27] MEDS: AMIODARONE 200 MG TAB PO SCH (09:01)
[2021-10-27] MEDS: METOPROLOL TARTRATE 50 MG TAB PO SCH (09:01)
[2021-10-27] MEDS: DILTIAZEM CD 120 MG CAP.ER.24H PO SCH (09:01)
[2021-10-27] MEDS: FUROSEMIDE 20 MG TAB PO SCH (09:01)
[2021-10-27] MEDS: lisinopriL 10 MG TAB PO SCH ×2 (09:01→21:07)
[2021-10-27] MEDS: FAMOTIDINE 20 MG TAB PO SCH (09:01)
[2021-10-27] MEDS: OXYMETAZOLINE 0.05% NASL SPRAY 1 SPRAY BOTTLE NASAL SCH (09:05)
[2021-10-27] MEDS ORDERED: VANCOMYCIN TROUGH DUE 1 EACH MISC MISCELLANE ONE (11:00)
[2021-10-27 11:27] LABS: African American GFR (CKD) >90 (>60 ml/min/1.73 sqM); Non-African American GFR(CKD) >90 (>60 ml/min/1.73 sqM)
[2021-10-27 11:31] LABS: Glucose,Whole Blood 119 mg/dL (75-99)
[2021-10-27] MEDS: VANCOMYCIN 1,750 MG in SODIUM CHLORIDE 0.9% 500 ML 500 ML IVPB SCH ×2 (12:22→23:53)
[2021-10-27] MEDS ORDERED: PHENYLEPHRINE-0.9% NACL SYG 1,000 MCG/10 ML SYRINGE ONE (12:58)
[2021-10-27] MEDS ORDERED: LIDOCAINE 1% INJ 10MG/ML (20 ML MDV) ONE (12:58)
[2021-10-27] MEDS ORDERED: fentaNYL (PF) 50 MCG/ML 2 ML AMP ONE (12:58)
[2021-10-27] MEDS ORDERED: SUCCINYLCHOLINE CHLORIDE 100 MG/5 ML SYR IV ONE (12:58)
[2021-10-27] MEDS ORDERED: ROCURONIUM 10 MG/ML (5 ML VIAL) IV ONE (12:58)
[2021-10-27] MEDS ORDERED: PROPOFOL 10 MG/ML 20 ML VIAL IV ONE (12:58)
[2021-10-27] MEDS ORDERED: ePHEDrine 50 MG/ML 1 ML VIAL ONE (12:58)
[2021-10-27] MEDS ORDERED: MIDAZOLAM 2 MG/2 ML VIAL ONE (12:58)
[2021-10-27] MEDS ORDERED: IV FLUID CONTINUATION 1,000 ML IV ONE ×2 (13:07)
[2021-10-27] MEDS ORDERED: EPINEPHrine 10 ML SYRINGE (0.1 MG/ML) MISCELLANE ONE (13:54)
[2021-10-27] MEDS ORDERED: SODIUM CHLORIDE 0.9% 500 ML 500 ML IV ONE ×2 (14:12)
--- NOTE | 2021-10-27 14:25 | FL ---
EXAMINATION TYPE: FL bronchoscopy DATE OF EXAM: 10/27/2021 COMPARISON: NONE HISTORY: Multifocal pneumonia, hypoxia Fluoroscopy support supplied to the referring clinician. See dictated report from pulmonary, 39 seco nds fluoroscopy time, 5 intraoperative images document the procedure
[2021-10-27] MEDS ORDERED: propofoL 100 ML IV ONE (14:30)
[2021-10-27 14:36] LABS: Glucose,Whole Blood 115 mg/dL (75-99)
--- NOTE | 2021-10-27 14:54 | OP ---
OPERATIVE REPORT OPERATIVE REPORT: 1. Bronchoscopy, transbronchial biopsy of the right middle lobe and right lower lobe, and bronchoalveolar lavage of right middle lobe and right lower lobe. 2. Extraction of blood clots/old blood clots present earlier in the airways, including the right mainstem bronchus and left mainstem bronchus. ANESTHESIA USED: Patient had general anesthesia done by E[facility]. PROCEDURE DESCRIPTION: The patient was placed in a supine position. He was intubated by COMMUNICATIONS SENIOR ASSOCIATE and connected to mechanical ventilation. We were monitoring his oxygen saturation continuously. Blood pressure was intermittently monitored and cardiac rhythm was continuously monitored. After adequate sedation and paralysis, the bronchoscope was advanced through the endotracheal tube down to the distal area of the trachea. As I entered the distal trachea region, I noted a significant amount of old blood clots present in the right mainstem bronchus and in the left mainstem bronchus. These blood clots were lavaged with a bit of difficulty; however, I was able to clear all the blood clots from the airways. Further examination now showed some more blood clots in the distal airways bilaterally; these were suctioned and lavaged. After suctioning of all the blood, airways looked very clear and there was no active bleeding. Then the bronchoalveolar lavage was done of the right middle lobe and right lower lobe, and this was sent for different diagnostic studies. Then, using fluoroscopic guidance, multiple transbronchial biopsies were done from the lateral segment of the right lower lobe and from the lateral segment of the right upper lobe. Multiple transbronchial biopsies were done. Minimal initial bleeding was noted. Then the airways were cleared completely, and as I left the room and the patient was about to be extubated, I was called by EZE that there was almost 50 mL going in the endotracheal tube and in the tubing. I went back and evaluated the patient again, took another look with the bronchoscope, and there was minimal oozing in the right lower lobe area but none in the right middle lobe. Epinephrine was applied in the segment where the biopsies were taken from. Blood was suctioned to the point that there was no active bleeding noted. I kept the patient on mechanical ventilation and suggested transferring the patient to ICU on a ventilator for now. Will decide on extubating the patient later on, although he had no active bleeding at the time of my bronchoscopy for the second time. Overall the procedure was well tolerated. It was a bit complicated by postoperative bleeding with 50 mL of blood loss noted in the tubing. Patient remained hemodynamically stable. We will be transferring the patient to the ICU on a ventilator for the time being before we decide to extubate the patient and make sure there is no active bleeding going on for the next few hours or probably overnight. PUSHPA / VIVI: [id number] /
[2021-10-27 15:06] LABS: Basophils % (A) 0 %; Eosinophils % (A) 0 %; HCT 39.2 % (39.0-53.0); HGB 12.4 gm/dL (13.0-17.5); Hypochromasia Slight; Lymphocytes # (A) 0.4 k/uL (1.0-4.8); Lymphocytes % (A) 3 %; MCH 32.5 pg (25.0-35.0); MCHC 31.6 g/dL (31.0-37.0); MCV 102.8 fL (80.0-100.0); Macrocytosis Slight; Mean Platelet Volume 7.6; Monocytes # (A) 0.5 k/uL (0-1.0); Monocytes % (A) 3 %; Neutrophils # (A) 13.2 k/uL (1.3-7.7); Neutrophils % (A) 94 %; Platelet Count 383 k/uL (150-450); RBC 3.81 m/uL (4.30-5.90); RDW 14.2 % (11.5-15.5); WBC 14.1 k/uL (3.8-10.6)
[2021-10-27] MEDS: fentaNYL (PF). 1,000 MCG in SODIUM CHLORIDE 0.9% 80 ML IV SCH (15:08)
[2021-10-27 15:12] LABS: African American GFR (CKD) >90 (>60 ml/min/1.73 sqM); Anion Gap 4 mmol/L; Blood Urea Nitrogen 21 mg/dL (9-20); Calcium 7.4 mg/dL (8.4-10.2); Carbon Dioxide 28 mmol/L (22-30); Chloride 105 mmol/L (98-107); Glucose 123 mg/dL (74-99); Non-African American GFR(CKD) >90 (>60 ml/min/1.73 sqM); Potassium 3.9 mmol/L (3.5-5.1); Sodium 137 mmol/L (137-145)
--- NOTE | 2021-10-27 15:12 | XR ---
EXAMINATION TYPE: XR chest 1V portable DATE OF EXAM: 10/27/2021 COMPARISON: Chest x-ray 10/26/2021 HISTORY: Intubated TECHNIQUE: Single frontal view of the chest is obtained. FINDINGS: Endotracheal tube is overlying the tracheal air column, there is an NG tube in place, the distal tip is not included on the exam. Airspace disease persists on the right, abnormal attenuation has developed in the interval on the left obscuring the left hemidiaphragm and blunting the left ches t phrenic angle. Central vascularity appears somewhat prominently, interstitium may be increased. IMPRESSION: No evident complication status post intubation. Correlate for volume overload, congestiv e heart failure, pneumonia, possible pleural effusion, edema
[2021-10-27 15:19] LABS: INR 1.4 (<1.2); Partial Thromboplastin Time 31.2 sec (22.0-30.0); Prothrombin Time 14.1 sec (9.0-12.0)
[2021-10-27 15:26] LABS: ABG HCO3 29 mmol/L (21-25); ABG Oxygen Saturation 94.6 % (94-97); ABG PCO2 48 mmHg (35-45); ABG PH 7.39 (7.35-7.45); ABG PO2 77 mmHg (83-108); ABG TCO2 30 mmol/L (19-24); Allen Test Performed? Yes
[2021-10-27] MEDS ORDERED: ATROPINE SULFATE 0.1 MG/ML 10ML SYRINGE ONE (16:15)
[2021-10-27] MEDS: SODIUM CHLORIDE 0.9% 1,000 ML IV SCH (16:37)
[2021-10-27] MEDS: SERTRALINE 100 MG TAB PO SCH (17:49)
[2021-10-27 17:53] LABS: Glucose,Whole Blood 119 mg/dL (75-99)
--- NOTE | 2021-10-27 19:31 | P.PN ---
Subjective This is a 76-year-old gentleman with a past medical history significant for hypertension and dyslipidemia and sleep apnea and also chronic obstructive pulmonary disease, presented to the emergency department complaining of shortness of breath. We consulted to see the patient for further evaluation of abnormal cardiac enzymes and elevated troponin. The patient states that for the last few days he has not been feeding well. He has been experiencing increasing in the temperature associated with cough productive of sputum. Beside that he was experiencing increasing in the shortness of breath but no symptoms of chest pain or chest discomfort and no dizziness or lightheadedness or any feeling of heart racing or fluttering or presyncope or syncope. In the ER the patient was found to be hypoxic with oxygen saturation of 75% and subsequently he was placed on BiPAP with improvement in his oxygenation. Also he presented to the emergency department he was in atrial fibrillation with RVR and subsequently converted to normal sinus mechanism after he was started on Cardizem IV. Currently he is in sinus rhythm was sinus bradycardia. He still on Cardizem IV. He is also on heparin IV. The patient underwent a workup including EKG as desc ribed earlier showing A. fib with diffuse nonspecific ST and T wave abnormalities. No EKG after the patient was converted to normal sinus mechanism. Also the troponin came in to be elevated. The chest x-ray showed findings consistent with a pneumonia. He underwent a computed tomography scan of the chest which showed multiple findings including no pulmonary embolism, bilateral hilar adenopathy, bilateral infiltrate, and also small to moderate pericardial effusion, heart failure. The patient has no history of coronary artery disease or congestive heart failure or any cardiac arrhythmia and never seen any body maker machine setter in the past. When he was seen and examined he was in bilateral expiratory wheezing with regular heart sounds and states bilateral lower extremities edema 10/15/21 Echocardiogram revealed an EF between 50 and 55% with mild mitral and tricuspid regurgitation, mild aortic valve sclerosis, and moderately enlarged right ventricle with left ventricular hypertrophy. 10/25/2021 Patient examined this morning. Patient is sitting up in bed. He denies chest pain or pressure. He reports improvement in his shortness of breath, however, continues to have difficulty bringing up sputum. He denies any further bleeding in his stool. Patient's blood pressure improved with BP 148/63 and this morning with a BP 187/90 prior to his medications, we will monitor patient's BP trend . Telemetry reviewed, patient maintaining sinus mechanism. Meds: amiodarone 200 mg twice a day (started on 10/23/21), Eliquis 5 mg twice a day, aspirin 81 mg daily, atorvastatin 80 mg nightly, Cardizem 120 mg daily, Lasix 20 mg daily, lisinopril 10 mg twice a day, metoprolol titrate 50 mg 3 times a day 10/27 Patient seen and examined. Undewent bronch with BAL today. After bronch while on vent he has been bradycardic with HR's in the 40's and in and out of afib with conversion pauses up to 4 seconds. Therefore amio, metoprolol and Cardizem have been held. Currently HR's at 40 with sinus rhythm without any efffect on BP. PHYSICAL EXAM: VITAL SIGNS: Reviewed. GENERAL: Well-developed in no acute distress. NECK: Supple. No JVD or thyromegaly LUNGS: Respirations even and unlabored. Lungs diminished with scattered rhonchi, decreased breath sounds on right HEART: Bradycardic rhythm. S1 and S2 heard. EXTREMITIES: Normal range of motion. No clubbing or cyanosis. Peripheral pulses intact. Trace bilateral lower extremity edema ASSESSMENT: Bilateral pneumonia, worse on right Acute COPD exacerbation Hypoxemia secondary to the above New onset paroxysmal atrial fibrillation with RVR Type II NSTEMI resulting from demand ischemia from RVR Obstructive sleep apnea Bradycardia likely related to medications and exacerbated by sedation, hypoxia PLAN: Hold anticoagulation and monitor for any further hemoptysis after bronch Bradycardia appears related to multiple medications added for his Afib. Likely exacerbated by sedation and hypoxia/ vagal response. Hold all negative chronotropic meds and likely restart amiodarone tomorrow however will monitor. If worsened bradycarida will trial dopamine drip. Discussed with nurse to attempt to limit oversedation. Further recommendations to follow. Objective - Vital Signs Vital signs: Vital Signs Temp 97.2 F L 10/27/21 16:00 Pulse 42 L 10/27/21 19:00 Resp 20 10/27/21 19:00 BP 103/69 10/27/21 19:00 Pulse Ox 96 10/27/21 19:00 Intake & Output 10/27/21 10/27/21 10/28/21 06:59 18:59 06:59 Intake Total 840 1195.655 107.12 Output Total 1500 1125 60 Balance -660 70.655 47.12 Weight 110 kg Intake: IV 920 .9@10 x2 20 Intake, IV Titration 275.655 107.12 Amount Sodium Chloride 0.9% 1, 225 75 000 ml @ 75 mls/hr IV . [id number] [facility] Rx#:[id number] fentaNYL (PF). 1,000 mcg 7.975 In Sodium Chloride 0.9% 80 ml @ 0.5 MCG/KG/HR 5.5 mls/hr IV .[id number] [facility] Rx#:[id number] propofoL 1,000 mg In 42.68 32.12 Empty Bag 1 bag @ Titrate IV .Q0M [facility]TA[facility] Rx#: [id number] Oral 840 Output: Urine 1500 1125 60 Other: Voiding Method Urinal Indwelling Catheter - Labs CBC & Chem 7: 10/27/21 14:35 10/27/21 14:35 Labs: Abnormal Lab Results - Last 24 Hours (Table) 10/26/21 10/27/21 10/27/21 Range/Units 20:30 05:59 10:47 WBC (3.8-10.6) k/uL RBC (4.30-5.90) m/uL Hgb (13.0-17.5) gm/dL MCV (80.0-100.0) fL Neutrophils # (1.3-7.7) k/uL Lymphocytes # (1.0-4.8) k/uL PT (9.0-12.0) sec INR (<1.2) APTT (22.0-30.0) sec ABG pCO2 (35-45) mmHg ABG pO2 (83-108) mmHg ABG HCO3 (21-25) mmol/L ABG Total CO2 (19-24) mmol/L BUN (9-20) mg/dL Creatinine 0.49 L (0.66-1.25) mg/dL Glucose (74-99) mg/dL POC Glucose (mg/dL) 168 H 116 H (75-99) mg/dL Calcium (8.4-10.2) mg/dL 10/27/21 10/27/21 10/27/21 Range/Units 11:30 14:34 14:35 WBC 14.1 H (3.8-10.6) k/uL RBC 3.81 L (4.30-5.90) m/uL Hgb 12.4 L (13.0-17.5) gm/dL MCV 102.8 H (80.0-100.0) fL Neutrophils # 13.2 H (1.3-7.7) k/uL Lymphocytes # 0.4 L (1.0-4.8) k/uL PT (9.0-12.0) sec INR (<1.2) APTT (22.0-30.0) sec ABG pCO2 (35-45) mmHg ABG pO2 (83-108) mmHg ABG HCO3 (21-25) mmol/L ABG Total CO2 (19-24) mmol/L BUN (9-20) mg/dL Creatinine (0.66-1.25) mg/dL Glucose (74-99) mg/dL POC Glucose (mg/dL) 119 H 115 H (75-99) mg/dL Calcium (8.4-10.2) mg/dL 10/27/21 10/27/21 10/27/21 Range/Units 14:35 14:35 15:24 WBC (3.8-10.6) k/uL RBC (4.30-5.90) m/uL Hgb (13.0-17.5) gm/dL MCV (80.0-100.0) fL Neutrophils # (1.3-7.7) k/uL Lymphocytes # (1.0-4.8) k/uL PT 14.1 H (9.0-12.0) sec INR 1.4 H (<1.2) APTT 31.2 H (22.0-30.0) sec ABG pCO2 48 H (35-45) mmHg ABG pO2 77 L (83-108) mmHg ABG HCO3 29 H (21-25) mmol/L ABG Total CO2 30 H (19-24) mmol/L BUN 21 H (9-20) mg/dL Creatinine 0.50 L (0.66-1.25) mg/dL Glucose 123 H (74-99) mg/dL POC Glucose (mg/dL) (75-99) mg/dL Calcium 7.4 L (8.4-10.2) mg/dL 10/27/21 Range/Units 17:52 WBC (3.8-10.6) k/uL RBC (4.30-5.90) m/uL Hgb (13.0-17.5) gm/dL MCV (80.0-100.0) fL Neutrophils # (1.3-7.7) k/uL Lymphocytes # (1.0-4.8) k/uL PT (9.0-12.0) sec INR (<1.2) APTT (22.0-30.0) sec ABG pCO2 (35-45) mmHg ABG pO2 (83-108) mmHg ABG HCO3 (21-25) mmol/L ABG Total CO2 (19-24) mmol/L BUN (9-20) mg/dL Creatinine (0.66-1.25) mg/dL Glucose (74-99) mg/dL POC Glucose (mg/dL) 119 H (75-99) mg/dL Calcium (8.4-10.2) mg/dL
[2021-10-27] MEDS: CHLORHEXIDINE GLUCONATE 15 ML CUP MUCOUS MEM SCH (21:07)
[2021-10-27] MEDS: ATORVASTATIN 80 MG TAB PO SCH (21:07)
--- NOTE | 2021-10-27 21:37 | P.PN ---
Progress Note - Text Progress Note Date: 10/27/21 Chief Complaint: Short of breath Hospital course This is a pleasant 76-year-old patient of Dr. Sultana. Chronic stable medical conditions include hypertension, obstructive sleep apnea, DJD, obesity. Depression, Patient presented increasing shortness of breath for 1 week, wheezing. Cough fever periods Sputum Production. Decrease Appetite Tired Rundown. Symptoms Became Progressively Worse. Found to Pulse Ox of 75% in the ER. Put on a BiPAP. Antibiotics. Bronchodilators. Admitted with bilateral pneumonia right greater than left, atrial fibrillation rapid ventricular rate, sepsis, COPD exacerbation. Started on IV cefepime, bronchodilators, IV steroids, IV heparin, IV Cardizem drip. Patient requiring BiPAP. Patient was changed over from IV heparin to eliquis. Beta blockers added. October 17: Breathing better. Decreased sputum production. On 12 L high flow nasal cannula. Had about half his breakfast. Not much appetite for lunch. Requested the patient sit up in a chair. Tired. Patient has been in sinus rhythm. October 18: Remains tired, short of breath. 12 L nasal cannula. Eating some. Vancomycin added by pulmonary. October 19: Tired. Short of breath. Remains on high flow nasal cannula. Intermittent BiPAP. Oral intake very well. Cough. I did today atrial fibrillation with rapid ventricular rate. Lopressor increased to 50 mg 3 times a day by cardiology. October 20: Feeling better. Sitting at the edge of the bed. 8 on his lunch. On 11 L nasal cannula. Patient is in sinus rhythm. Patient was started on oral amiodarone and oral Cardizem yesterday. October 21: Sitting of the edge of the bed. Eating better. 10 liters nasal cannula. Some cough. Sinus rhythm. October 22: Oral intake fair. Feels dryness of the nose and blockage of the nostril. A few nasal drops ordered. 9 L nasal cannula. Back in atrial fibrillation, rate controlled. Cough present. Nasal screen negative for MRSA. October 23: Down to 6 L of nasal cannula. Congested cough present. Currently sinus rhythm. Eating fair. October 24: Remains on 6 L nasal cannula. Oral intake fair. Cough. Sinus rhythm. Some bloodstained sputum. October 25: On 6 L nasal cannula. Some shortness of breath. Congested chest. Dr. Ball discontinued to eliquis to proceed for bronchoscopy on . Patient reminded to use incentive spirometry. October 26: Congested cough. Still bringing up slight bloody sputum. Eliquis was held yesterday. For bronchoscopy tomorrow. Oral intake fair. Remains on 6 L nasal cannula. October 27: Earlier today patient underwent bronchoscopy by Dr. Ball. Significant amount of blood also removed. Patient then taken to the ICU. On the ventilator. FiO2 80% PEEP of 8. On propofol. Sinus rhythm. Active Medications Acetaminophen (Acetaminophen Tab 325 Mg Tab) 650 mg PO Q6HR PRN PRN Reason: Mild Pain or Fever > 100.5 Hydrocodone Bitart/Acetaminophen (Hydrocodone/Apap 10-325mg 1 Each Tab) 1 each PO Q6H [facility] Last Admin: 10/27/21 17:49 Dose: Not Given Documented by: Albuterol/Ipratropium (Ipratropium-Albuterol 3 Ml Neb) 3 ml INHALATION RT-Q4H PRN PRN Reason: Shortness Of Breath Or Wheezing Last Admin: 10/17/21 11:28 Dose: 3 ml Documented by: Albuterol/Ipratropium (Ipratropium-Albuterol 3 Ml Neb) 3 ml INHALATION RT-QID [facility] Last Admin: 10/27/21 20:37 Dose: 3 ml Documented by: Atorvastatin Calcium (Atorvastatin 80 Mg Tab) 80 mg PO HS [facility] Last Admin: 10/27/21 21:07 Dose: 80 mg Documented by: Budesonide (Budesonide 1 Mg/2 Ml Nebu) 1 mg INHALATION RT-BID [facility] Last Admin: 10/27/21 20:37 Dose: 1 mg Documented by: Chlorhexidine Gluconate (Chlorhexidine Gluconate 15 Ml Cup) 15 ml MUCOUS MEM BID [facility] Last Admin: 10/27/21 21:07 Dose: 15 ml Documented by: Formoterol Fumarate (Formoterol Fumarate 20 Mcg/2 Ml Nebu) 20 mcg INHALATION RT-BID [facility] Last Admin: 10/27/21 20:37 Dose: 20 mcg Documented by: Furosemide (Furosemide 20 Mg Tab) 20 mg PO DAILY [facility] Last Admin: 10/27/21 09:01 Dose: 20 mg Documented by: Vancomycin HCl 1,750 mg/ (Sodium Chloride) 500 mls @ 167 mls/hr IVPB Q12H [facility] Last Admin: 10/27/21 12:22 Dose: 167 mls/hr Documented by: Cefepime HCl 2 gm/ Sodium (Chloride) 100 mls @ 25 mls/hr IVPB Q8H [facility] Last Admin: 10/27/21 18:00 Dose: 25 mls/hr Documented by: Fentanyl Citrate 1,000 mcg/ (Sodium Chloride) 100 mls @ 5.5 mls/hr IV .[id number] [facility]; Protocol Last Titration: 10/27/21 16:35 Dose: 0 mcg/kg/hr, 0 mls/hr Documented by: Propofol 1,000 mg/ IV Solution 100 mls @ 0 mls/hr IV .Q0M [facility]; Protocol Last Admin: 10/27/21 19:44 Dose: 30 mcg/kg/min, 19.8 mls/hr Documented by: Sodium Chloride (Saline 0.9%) 1,000 mls @ 75 mls/hr IV .[id number] [facility] Last Admin: 10/27/21 16:37 Dose: 75 mls/hr Documented by: Insulin Aspart (Insulin Aspart (Novolog) 100 Unit/Ml Vial) 0 unit SQ Q6H [facility]; Protocol Lisinopril (Lisinopril 10 Mg Tab) 10 mg PO BID [facility] Last Admin: 10/27/21 21:07 Dose: 10 mg Documented by: Methylprednisolone Sodium Succinate (Methylprednisolone Sod Succi 125 Mg/2 Ml Vial) 60 mg IV Q6HR [facility] Last Admin: 10/27/21 18:00 Dose: 60 mg Documented by: Morphine Sulfate (Morphine Sulfate Er 15 Mg Tablet) 15 mg PO BID@0600,1600 [facility]; Protocol Last Admin: 10/27/21 17:48 Dose: Not Given Documented by: Naloxone HCl (Naloxone 0.4 Mg/Ml 1 Ml Vial) 0.2 mg IV Q2M PRN PRN Reason: Opioid Reversal Pramipexole Dihydrochloride (Pramipexole 1 Mg Tab) 1 mg PO BID@0600,1600 [facility] Last Admin: 10/27/21 17:48 Dose: Not Given Documented by: Sertraline HCl (Sertraline 100 Mg Tab) 100 mg PO DAILY@1600 [facility] Last Admin: 10/27/21 17:49 Dose: Not Given Documented by: Past medical history to include: COPD, hypertension, obstructive sleep apnea, DJD, skin cancer Social history: . Smoked for 30 years stopped in 1979. Family history: Reviewed, noncontributory to presentation Physical examination: VITAL SIGNS: 98.4, 40, 20, 113/66, 94% on the ventilator GENERAL: Laying in bed, intubated EYES: Pupils equal. Conjunctiva normal. HEENT: Endotracheal tube. NECK: JVD unable to assess; masses not palpable. HEART: First second sounds normal; no edema. LUNGS: Respiratory rate increased decreased breath sounds, some crackles ABDOMEN: Soft, nontender, liver spleen not palpable, no masses palpable. PSYCH: Patient sedated MUSCULOSKELETAL:No Clubbing/cyanosis;muscles-grossly intact INVESTIGATIONS, reviewed in the clinical context: October 27: White count 14.1 hemoglobin 12.4 platelets 383 potassium 3.9 BUN 21 creatinine 0.5 October 26: Potassium 4.4 creatinine 0.61 October 24: Creatinine 0.55 October 23: WBC 18.3 hemoglobin 14.1 platelets 49 potassium 4.7 BUN 23 creatini ne 0.6 October 22: Creatinine 0.58 Accu-Cheks noted. Nasal screen negative for MRSA October 21: Creatinine 0.64 October 20: White count 12.9 hemoglobin 13.2 platelets 404 potassium 4.4 creatinine 0.5 to October 19: Potassium 4.5 crit 0.5 October 18: White count 18 hemoglobin 12.5 potassium 4.3 creatinine 0.61 October 17: White count 24.6 hemoglobin 11.9 platelets 277 sodium 141 potassium 4.2 creatinine 0.67. Pro-calcitonin 0.06 Chest x-ray film personally reviewed by me-[October 16] significant right-sided infiltrates White count 25.6 hemoglobin 15.9 platelets 324 increased neutrophils d-dimer 7.48 sodium 138 potassium 4.2. 38 creatinine 1.53 lactic acid 3.8 Troponin I 2.0, 1.7, 1.2 Coronavirus [PCR]: Not detected EKG tracing personally reviewed by me-atrial fibrillation ST-T wave changes, rate 138 Chest angiogram chest: Moderate emphysema. Extensive patchy and confluent consolidation throughout the right lung. Some of the left side 2. Hilar lymphadenopathy. Chest x-ray film personally reviewed by me-extensive infiltrate on the right mid zone and some on the left side 2-D echocardiogram: EF 50-55% Assessment and plan: -Severe pneumonia predominantly right-sided gram-negative organism: Slow to respond Cefepime 2 g every 12 hour. IV vancomycin . Bronchoscopy done today. -Bronchoscopy reveals several blood clots that was removed. Epinephrine was used. -Severe sepsis from pneumonia: Better IV fluids. Antibiotics. -Paroxysmal Atrial fibrillation rapid ventricular rate on presentation. In and out of A. fib. Currently sinus rhythm Beta valente. [Received: IV heparin. IV Cardizem drip] Eliquis, Lopressor 50 mg 3 times a day. By mouth Cordarone. Cardizem 30 mg 3 times a day IV heparin monitoring: Discontinued Follow PTT -Acute COPD exacerbation in a prior smoker: Slow to respond DuoNeb. IV Solu-Medrol 60 mg every 6 -Acute severe hypoxic respiratory failure from pneumonia: Slow to respond Intermittent BiPAP. 6 L high flow nasal cannula -Essential hypertension Zestril 10 mg daily Lopressor 50 mg 3 times a day. Cardizem 30 mg 3 times a day -Restless leg syndrome Mirapex 1 mg twice a day -Depression Zoloft 100 mg daily Primary osteoarthritis multiple joints bilaterally [place] 10 every 6 ICU: IV cefepime. IV vancomycin. IV Solu-Medrol. Currently on the ventilator. Status post bronchoscopy. Large amount of blood was removed. Currently sinus rhythm.
[2021-10-27 23:52] LABS: Glucose,Whole Blood 128 mg/dL (75-99)
[2021-10-28] MEDS: INSULIN ASPART (NovoLOG) 100 UNIT/ML VIAL SQ SCH ×5 (00:01→21:45)
[2021-10-28] MEDS: CEFEPIME 2 GM in SODIUM CHLORIDE 0.9% 100 ML IVPB SCH ×3 (02:12→16:59)
[2021-10-28] MEDS: SODIUM CHLORIDE 0.9% 1,000 ML IV SCH ×2 (04:35→16:29)
[2021-10-28 05:34] LABS: ABG Base Excess 2.8 mmol/L; ABG HCO3 28 mmol/L (21-25); ABG Oxygen Saturation 92.7 % (94-97); ABG PCO2 46 mmHg (35-45); ABG PO2 70 mmHg (83-108); Allen Test Performed? Yes
[2021-10-28] MEDS: HYDROcodone/APAP 10-325MG 1 EACH TAB PO SCH ×3 (05:35→18:34)
[2021-10-28] MEDS: MORPHINE SULFATE ER 15 MG TABLET PO SCH ×2 (05:35→16:25)
[2021-10-28 05:59] LABS: Glucose,Whole Blood 127 mg/dL (75-99)
[2021-10-28] MEDS: methylPREDNISolone SOD SUCCI 125 MG/2 ML VIAL IV SCH ×3 (06:15→16:59)
[2021-10-28] MEDS: PRAMIPEXOLE 1 MG TAB PO SCH ×2 (06:15→16:25)
[2021-10-28 06:23] LABS: Basophils % (A) 0 %; Eosinophils % (A) 0 %; HCT 38.8 % (39.0-53.0); HGB 12.3 gm/dL (13.0-17.5); Hypochromasia Slight; Lymphocytes # (A) 0.5 k/uL (1.0-4.8); Lymphocytes % (A) 4 %; MCH 32.8 pg (25.0-35.0); MCHC 31.6 g/dL (31.0-37.0); MCV 103.7 fL (80.0-100.0); Macrocytosis Moderate; Mean Platelet Volume 7.3; Monocytes # (A) 0.4 k/uL (0-1.0); Monocytes % (A) 3 %; Neutrophils # (A) 11.8 k/uL (1.3-7.7); Neutrophils % (A) 92 %; Platelet Count 326 k/uL (150-450); RBC 3.74 m/uL (4.30-5.90); RDW 14.8 % (11.5-15.5); WBC 12.8 k/uL (3.8-10.6)
[2021-10-28 06:34] LABS: INR 1.3 (<1.2); Partial Thromboplastin Time 29.9 sec (22.0-30.0); Prothrombin Time 13.2 sec (9.0-12.0)
[2021-10-28 06:51] LABS: African American GFR (CKD) >90 (>60 ml/min/1.73 sqM); Anion Gap 2 mmol/L; Blood Urea Nitrogen 21 mg/dL (9-20); Calcium 7.7 mg/dL (8.4-10.2); Carbon Dioxide 27 mmol/L (22-30); Chloride 108 mmol/L (98-107); Glucose 135 mg/dL (74-99); Non-African American GFR(CKD) >90 (>60 ml/min/1.73 sqM); Potassium 3.6 mmol/L (3.5-5.1); Sodium 137 mmol/L (137-145)
[2021-10-28] MEDS: BUDESONIDE 1 MG/2 ML NEBU INHALATION SCH ×2 (08:02→20:12)
[2021-10-28] MEDS: FORMOTEROL FUMARATE 20 MCG/2 ML NEBU INHALATION SCH ×2 (08:02→20:12)
[2021-10-28] MEDS: IPRATROPIUM-ALBUTEROL 3 ML NEB INHALATION SCH ×4 (08:02→20:12)
--- NOTE | 2021-10-28 08:57 | P.PN ---
Subjective This is a 76-year-old gentleman with a past medical history significant for hypertension and dyslipidemia and sleep apnea and also chronic obstructive pulmonary disease, presented to the emergency department complaining of shortness of breath. We consulted to see the patient for further evaluation of abnormal cardiac enzymes and elevated troponin. The patient states that for the last few days he has not been feeding well. He has been experiencing increasing in the temperature associated with cough productive of sputum. Beside that he was experiencing increasing in the shortness of breath but no symptoms of chest pain or chest discomfort and no dizziness or lightheadedness or any feeling of heart racing or fluttering or presyncope or syncope. In the ER the patient was found to be hypoxic with oxygen saturation of 75% and subsequently he was placed on BiPAP with improvement in his oxygenation. Also he presented to the emergency department he was in atrial fibrillation with RVR and subsequently converted to normal sinus mechanism after he was started on Cardizem IV. Currently he is in sinus rhythm was sinus bradycardia. He still on Cardizem IV. He is also on heparin IV. The patient underwent a workup including EKG as desc ribed earlier showing A. fib with diffuse nonspecific ST and T wave abnormalities. No EKG after the patient was converted to normal sinus mechanism. Also the troponin came in to be elevated. The chest x-ray showed findings consistent with a pneumonia. He underwent a computed tomography scan of the chest which showed multiple findings including no pulmonary embolism, bilateral hilar adenopathy, bilateral infiltrate, and also small to moderate pericardial effusion, heart failure. The patient has no history of coronary artery disease or congestive heart failure or any cardiac arrhythmia and never seen any alignment mechanic in the past. When he was seen and examined he was in bilateral expiratory wheezing with regular heart sounds and states bilateral lower extremities edema 10/15/21 Echocardiogram revealed an EF between 50 and 55% with mild mitral and tricuspid regurgitation, mild aortic valve sclerosis, and moderately enlarged right ventricle with left ventricular hypertrophy. 10/25/2021 Patient examined this morning. Patient is sitting up in bed. He denies chest pain or pressure. He reports improvement in his shortness of breath, however, continues to have difficulty bringing up sputum. He denies any further bleeding in his stool. Patient's blood pressure improved with BP 148/63 and this morning with a BP 187/90 prior to his medications, we will monitor patient's BP trend . Telemetry reviewed, patient maintaining sinus mechanism. Meds: amiodarone 200 mg twice a day (started on 10/23/21), Eliquis 5 mg twice a day, aspirin 81 mg daily, atorvastatin 80 mg nightly, Cardizem 120 mg daily, Lasix 20 mg daily, lisinopril 10 mg twice a day, metoprolol titrate 50 mg 3 times a day 10/27 Patient seen and examined. Undewent bronch with BAL today. After bronch while on vent he has been bradycardic with HR's in the 40's and in and out of afib with conversion pauses up to 4 seconds. Therefore amio, metoprolol and Cardizem have been held. Currently HR's at 40 with sinus rhythm without any efffect on BP. 10/28 Patient seen and examined. Patient underwent bronchoscopy with BAL yesterday with some concern of hemoptysis additionally. No further hemoptysis however NG tube does have some coffee-ground appearing fluid. Continues to be in sinus rhythm with sinus bradycardia currently 43 bpm. He remained sedated however not much change when he is woken up. Hemodynamically he appears stable. Blood pressure including lisinopril has been held and all negative chronotropic have been held. Hemoglobin stable at 12.3. PHYSICAL EXAM: VITAL SIGNS: Reviewed. GENERAL: Well-developed in no acute distress. Intubated NECK: Supple. No JVD or thyromegaly LUNGS: Respirations even and unlabored. Lungs diminished with scattered rhonchi, decreased breath sounds on right HEART: Bradycardic rhythm. S1 and S2 heard. EXTREMITIES: Normal range of motion. No clubbing or cyanosis. Peripheral pulses intact. Trace bilateral lower extremity edema ASSESSMENT: Bilateral pneumonia, worse on right Acute COPD exacerbation Hypoxemia secondary to the above New onset paroxysmal atrial fibrillation with RVR Type II NSTEMI resulting from demand ischemia from RVR, pneumonia Obstructive sleep apnea Bradycardia likely related to medications and exacerbated by sedation, hypoxia PLAN: Hold anticoagulation and monitor for any further hemoptysis after bronch, hgb appears stable. Continue to hold anticoagulation and monitor for any hemoptysis. Hold negative chronotropes for now. Bradycardia likely somewhat exacerbated by sedation. Patient is tolerating sinus bradycardia currently and continue to monitor. Further recommendations to follow. Objective - Vital Signs Vital signs: Vital Signs Temp 98.5 F 10/28/21 04:00 Pulse 42 L 10/28/21 08:26 Resp 20 10/28/21 07:00 BP 121/64 10/28/21 07:00 Pulse Ox 92 L 10/28/21 07:00 Intake & Output 10/27/21 10/28/21 10/28/21 18:59 06:59 18:59 Intake Total 3615.017 1219.71 75 Output Total 1125 1165 50 Balance 70.655 639.71 25 Weight 110 kg 121 kg Intake: IV 920 .9@10 x2 20 Intake, IV Titration 862.433 0772.71 75 Amount Cefepime 2 gm In Sodium 100 Chloride 0.9% 100 ml @ 25 mls/hr IVPB Q8H [facility] Rx#: [id number] Sodium Chloride 0.9% 1, 225 900 75 000 ml @ 75 mls/hr IV . [id number] [facility] Rx#:[id number] Vancomycin 1,750 mg In 500 Sodium Chloride 0.9% 500 ml 500 ml @ 167 mls/hr IVPB Q12H [facility] Rx#: [id number] fentaNYL (PF). 1,000 mcg 7.975 0 In Sodium Chloride 0.9% 80 ml @ 0.5 MCG/KG/HR 5.5 mls/hr IV .[id number] [facility] Rx#:[id number] propofoL 1,000 mg In 42.68 304.71 Empty Bag 1 bag @ Titrate IV .Q0M [facility] Rx#: [id number] Oral 0 Output: Urine 1125 1165 50 Other: Voiding Method Indwelling Catheter Indwelling Catheter - Labs CBC & Chem 7: 10/28/21 05:54 10/28/21 05:54 Labs: Abnormal Lab Results - Last 24 Hours (Table) 10/27/21 10/27/21 10/27/21 Range/Units 10:47 11:30 14:34 WBC (3.8-10.6) k/uL RBC (4.30-5.90) m/uL Hgb (13.0-17.5) gm/dL Hct (39.0-53.0) % MCV (80.0-100.0) fL Neutrophils # (1.3-7.7) k/uL Lymphocytes # (1.0-4.8) k/uL PT (9.0-12.0) sec INR (<1.2) APTT (22.0-30.0) sec ABG pCO2 (35-45) mmHg ABG pO2 (83-108) mmHg ABG HCO3 (21-25) mmol/L ABG Total CO2 (19-24) mmol/L ABG O2 Saturation (94-97) % Chloride (98-107) mmol/L BUN (9-20) mg/dL Creatinine 0.49 L (0.66-1.25) mg/dL Glucose (74-99) mg/dL POC Glucose (mg/dL) 119 H 115 H (75-99) mg/dL Calcium (8.4-10.2) mg/dL 10/27/21 10/27/21 10/27/21 Range/Units 14:35 14:35 14:35 WBC 14.1 H (3.8-10.6) k/uL RBC 3.81 L (4.30-5.90) m/uL Hgb 12.4 L (13.0-17.5) gm/dL Hct (39.0-53.0) % MCV 102.8 H (80.0-100.0) fL Neutrophils # 13.2 H (1.3-7.7) k/uL Lymphocytes # 0.4 L (1.0-4.8) k/uL PT 14.1 H (9.0-12.0) sec INR 1.4 H (<1.2) APTT 31.2 H (22.0-30.0) sec ABG pCO2 (35-45) mmHg ABG pO2 (83-108) mmHg ABG HCO3 (21-25) mmol/L ABG Total CO2 (19-24) mmol/L ABG O2 Saturation (94-97) % Chloride (98-107) mmol/L BUN 21 H (9-20) mg/dL Creatinine 0.50 L (0.66-1.25) mg/dL Glucose 123 H (74-99) mg/dL POC Glucose (mg/dL) (75-99) mg/dL Calcium 7.4 L (8.4-10.2) mg/dL 10/27/21 10/27/21 10/27/21 Range/Units 15:24 17:52 23:50 WBC (3.8-10.6) k/uL RBC (4.30-5.90) m/uL Hgb (13.0-17.5) gm/dL Hct (39.0-53.0) % MCV (80.0-100.0) fL Neutrophils # (1.3-7.7) k/uL Lymphocytes # (1.0-4.8) k/uL PT (9.0-12.0) sec INR (<1.2) APTT (22.0-30.0) sec ABG pCO2 48 H (35-45) mmHg ABG pO2 77 L (83-108) mmHg ABG HCO3 29 H (21-25) mmol/L ABG Total CO2 30 H (19-24) mmol/L ABG O2 Saturation (94-97) % Chloride (98-107) mmol/L BUN (9-20) mg/dL Creatinine (0.66-1.25) mg/dL Glucose (74-99) mg/dL POC Glucose (mg/dL) 119 H 128 H (75-99) mg/dL Calcium (8.4-10.2) mg/dL 10/28/21 10/28/21 10/28/21 Range/Units 05:45 05:54 05:54 WBC 12.8 H (3.8-10.6) k/uL RBC 3.74 L (4.30-5.90) m/uL Hgb 12.3 L (13.0-17.5) gm/dL Hct 38.8 L (39.0-53.0) % MCV 103.7 H (80.0-100.0) fL Neutrophils # 11.8 H (1.3-7.7) k/uL Lymphocytes # 0.5 L (1.0-4.8) k/uL PT 13.2 H (9.0-12.0) sec INR 1.3 H (<1.2) APTT (22.0-30.0) sec ABG pCO2 46 H (35-45) mmHg ABG pO2 70 L (83-108) mmHg ABG HCO3 28 H (21-25) mmol/L ABG Total CO2 (19-24) mmol/L ABG O2 Saturation 92.7 L (94-97) % Chloride (98-107) mmol/L BUN (9-20) mg/dL Creatinine (0.66-1.25) mg/dL Glucose (74-99) mg/dL POC Glucose (mg/dL) (75-99) mg/dL Calcium (8.4-10.2) mg/dL 10/28/21 10/28/21 Range/Units 05:54 05:57 WBC (3.8-10.6) k/uL RBC (4.30-5.90) m/uL Hgb (13.0-17.5) gm/dL Hct (39.0-53.0) % MCV (80.0-100.0) fL Neutrophils # (1.3-7.7) k/uL Lymphocytes # (1.0-4.8) k/uL PT (9.0-12.0) sec INR (<1.2) APTT (22.0-30.0) sec ABG pCO2 (35-45) mmHg ABG pO2 (83-108) mmHg ABG HCO3 (21-25) mmol/L ABG Total CO2 (19-24) mmol/L ABG O2 Saturation (94-97) % Chloride 108 H (98-107) mmol/L BUN 21 H (9-20) mg/dL Creatinine 0.52 L (0.66-1.25) mg/dL Glucose 135 H (74-99) mg/dL POC Glucose (mg/dL) 127 H (75-99) mg/dL Calcium 7.7 L (8.4-10.2) mg/dL Microbiology - Last 24 Hours (Table) 10/27/21 13:29 Bronchial Washings Culture - Preliminary Bronchial Washings - Right 10/27/21 13:29 Fungal Culture - Preliminary Bronchial Washings - Right 10/27/21 13:29 Acid Fast Bacilli Culture - Preliminary Bronchial Washings - Right
--- NOTE | 2021-10-28 08:59 | XR ---
EXAMINATION TYPE: XR chest 1V portable DATE OF EXAM: 10/28/2021 COMPARISON: 10/27/2021 HISTORY: Shortness of breath TECHNIQUE: Single frontal view of the chest is obtained. FINDINGS: ET and NG tube stable next bilateral infiltrate and pleural effusion greater on the right similar to the prior exam. Stable right apical pleural thickening. Arthropathy shoulders. Chronic rib deformities on the right stable. IMPRESSION: Stable bilateral infiltrate and pleural effusion.
[2021-10-28] MEDS: FUROSEMIDE 20 MG TAB PO SCH (09:04)
[2021-10-28] MEDS: fentaNYL (PF). 1,000 MCG in SODIUM CHLORIDE 0.9% 80 ML IV SCH (09:09)
[2021-10-28] MEDS: CHLORHEXIDINE GLUCONATE 15 ML CUP MUCOUS MEM SCH (09:27)
[2021-10-28 11:24] LABS: Glucose,Whole Blood 102 mg/dL (75-99)
[2021-10-28] MEDS: VANCOMYCIN 1,750 MG in SODIUM CHLORIDE 0.9% 500 ML 500 ML IVPB SCH (12:26)
--- NOTE | 2021-10-28 13:51 | P.PN ---
Subjective Progress Note Date: 10/28/21 Principal diagnosis: Acute hypoxic respiratory failure secondary to bilateral pneumonia right more so than left. On 10/24/2021 patient seen in follow-up on selective care unit, he sitting up on the edge of the bed, breathing comfortably, he is currently down to 6 L of oxygen pulse ox is 92%, lung sounds are still positive for diffuse wheezes and rhonchi, but overall patient's is feeling better, oxygenation has improved although the chest x-ray still showing persistent areas of infiltrate with chronic parenchymal changes with confluent increased right mid to lower lung opa city silhouetting the right heart border and hemidiaphragm and scattered left- sided more central opacities. Patient has completed a course of cefepime, remains on vancomycin, so far there is been no growth on the blood and sputum cultures. He also continues on IV steroids with Solu-Medrol gram every 8 hours, he is on daily dose of Lasix, cough medicine, nebulized bronchodilators. Denies any chest discomfort, no hemoptysis. Breathing fairly easily. Yesterday's labs have been reviewed, his white blood cell count was 18.3, hemoglobin is 14.1 and electrolytes are unremarkable, BUN is 23 creatinine 0.6 On 10/25/2021 patient seen in follow-up on selective care unit, he remains on 6 L of oxygen pulse ox is 90%, he sounds are rhonchorous, congested, however he is not able to bring up much phlegm. Yesterday he was having some phlegm production with a blood-tinged mucus. We added cefepime back on, he remains on vancomycin, CULTURE data is negative, he is afebrile, does not appear to be in any acute distress, hemodynamically his been stable. His chest x-ray findings from yesterday was still showing significant right mid and lower lung consolidation. He continues on IV steroids and breathing treatments, he is on oral dose of Lasix. Follow up procalcitonn was negative at 0.03. His creatinine was 0.5 on yesterday's labs, Vanco trough was 15.3. On October 26, 2021 patient seen in follow-up on selective care unit, he still feels short of breath, his cough is congested but nonproductive. He is on 6 L of oxygen his pulse ox is 90-93%, lung sounds are diminished, with the scattered wheezes and rhonchi, patient continues on a combination of cefepime and vancomycin he has been slow to improve, his follow-up chest x-ray today shows stable right mid and lower lung opacity. Denies chest pain or hemoptysis, does have exertional dyspnea, patient continues on IV steroids with Solu-Medrol 60 mg every 6 hours, antibiotics as mentioned above, all his culture data has been negative. His been afebrile, hemodynamically he has been stable. His Eliquis has been on hold since yesterday and we discussed bronchoscopy with BAL and possible biopsies tomorrow on , 10/27/2021 with which the patient is agreeable to proceed. On 10/27/2021 patient seen in follow-up on selective care unit, he is awake and alert, in no acute distress, he is on 6 L of oxygen pulse ox is 92-94%, his been afebrile overnight, hemodynamically has been stable, lung sounds reveal diffuse rhonchi bilaterally, patient has been having a congested cough, at times his been bringing up some dark-colored blood-tinged sputum. But most of the time his cough has been nonproductive, he remains on a combination of cefepime and vancomycin, his culture data remains negative thus far. His Eliquis is on hold, patient is in sinus mechanism with a controlled rate, yesterday his chest x-ray did not show significant improvement in appearance of his right lung pneumonia with addition of infiltration in the left upper lobe. he is scheduled for bronchoscopy with BAL and possible biopsies today at 12:30, his been nothing by mouth after midnight. On 10/28/2021, patient was evaluated today in the ICU, he underwent a bronchoscopy, bronchoalveolar lavage and transbronchial biopsy yesterday, initial findings on the bronchoscopy showed significant amount of old blood in the airway especially in the right mainstem bronchus and left mainstem bronchus, and these were lavaged. And suctioned with difficulty but nonetheless it was all cleared and I was able to visualize basically clear airways without any ac tive bleeding. Then patient underwent transbronchial biopsies and lavage of the right middle lobe and right lower lobe, this was done under fluoroscopy guidance. There was evidence of postoperative bleeding, required another look down the airways, and the bleeding was felt to be not significant however I did apply some epinephrine in the right lower lobe lateral segment where the biopsies were taken mostly. And there was very minimal oozing of blood. However considering the patient was desaturating and required to be on relatively high FiO2, I chose not to extubate him yesterday, and I kept him on mechanical ventilation sedated until this morning. This morning, I took the patient off sedation, and gave the patient a very short trial of weaning on pressure support of 10 and CPAP. And I was at bedside during this period patient tolerated the weaning process quite nicely, then I proceeded to extubating the patient to BiPAP which I will transition to nasal cannula as he tolerates it. In the meantime we'll advance his diet postextubation. Patient was noted to be quite bradycardic yesterday, and some of his cardiac medications for atrial fibrillation remain on hold at present. Patient has sinus bradycardia currently rate in the 50s. Chest x-ray continues to show bilateral infiltrates, but chest x-ray today is improved compared to chest x-ray yesterday post bronchoscopy and biopsy. His CBC is relatively unremarkable. Hemoglobin is 12.3. INR is 1.3. ABG on 60% showed a pO2 of 70 pCO2 46 patient of 7.40 and this was on assist control rate of 20, volume is 500 FiO2 60% and PEEP of 8 Objective - Vital Signs Vital signs: Vital Signs Temp 96.4 F L 10/28/21 08:00 Pulse 65 10/28/21 13:00 Resp 16 10/28/21 13:00 BP 113/75 10/28/21 13:00 Pulse Ox 95 10/28/21 13:00 Intake & Output 10/27/21 10/28/21 10/28/21 18:59 06:59 18:59 Intake Total 0691.283 8394.71 550 Output Total 1125 1165 425 Balance 70.655 639.71 125 Weight 110 kg 121 kg 121 kg Intake: IV 920 .9@10 x2 20 Intake, IV Titration 572.087 2080.71 550 Amount Cefepime 2 gm In Sodium 100 100 Chloride 0.9% 100 ml @ 25 mls/hr IVPB Q8H [facility] Rx#: [id number] Sodium Chloride 0.9% 1, 225 900 450 000 ml @ 75 mls/hr IV . [id number] [facility] Rx#:[id number] Vancomycin 1,750 mg In 500 Sodium Chloride 0.9% 500 ml 500 ml @ 167 mls/hr IVPB Q12H [facility] Rx#: [id number] fentaNYL (PF). 1,000 mcg 7.975 0 In Sodium Chloride 0.9% 80 ml @ 0.5 MCG/KG/HR 5.5 mls/hr IV .[id number] [facility] Rx#:[id number] propofoL 1,000 mg In 42.68 304.71 Empty Bag 1 bag @ Titrate IV .Q0M [facility] Rx#: [id number] Oral 0 Output: Urine 1125 1165 425 Other: Voiding Method Indwelling Catheter Indwelling Catheter Indwelling Catheter - Exam GENERAL EXAM: Revealed a 76-year-old white male intubated, mechanically ventilated, sedated, on propofol and on fentanyl. HEAD: Normocephalic/atraumatic. The tracheal tube is intact. HEENT: PERRLA, EOMI, nonicteric, no neck masses, orogastric tube is noted, and his coffee ground material in the orogastric tube however the endotracheal tube seems to be clean and there is no blood. CHEST: No chest wall deformity. Symmetrical expansion. LUNGS: Crackles at the right base. No rhonchi and no wheezes. CVS: Regular rate and rhythm, normal S1 and S2, no gallops, no murmurs, no rubs ABDOMEN: Soft, nontender. No hepatosplenomegaly, normal bowel sounds, no guarding or rigidity. EXTREMITIES: No clubbing, no edema, no cyanosis, 2+ pulses and upper and lower extremities. MUSCULOSKELETAL: Muscle strength and tone normal. CENTRAL NERVOUS SYSTEM: Arousable, follows instructions, sedation was just placed on hold. Psychiatric: Normal mood affect and normal mental status examination. - Labs CBC & Chem 7: 10/28/21 05:54 10/28/21 05:54 Labs: Abnormal Lab Results - Last 24 Hours (Table) 10/27/21 10/27/21 10/27/21 Range/Units 14:34 14:35 14:35 WBC 14.1 H (3.8-10.6) k/uL RBC 3.81 L (4.30-5.90) m/uL Hgb 12.4 L (13.0-17.5) gm/dL Hct (39.0-53.0) % MCV 102.8 H (80.0-100.0) fL Neutrophils # 13.2 H (1.3-7.7) k/uL Lymphocytes # 0.4 L (1.0-4.8) k/uL PT 14.1 H (9.0-12.0) sec INR 1.4 H (<1.2) APTT 31.2 H (22.0-30.0) sec ABG pCO2 (35-45) mmHg ABG pO2 (83-108) mmHg ABG HCO3 (21-25) mmol/L ABG Total CO2 (19-24) mmol/L ABG O2 Saturation (94-97) % Chloride (98-107) mmol/L BUN (9-20) mg/dL Creatinine (0.66-1.25) mg/dL Glucose (74-99) mg/dL POC Glucose (mg/dL) 115 H (75-99) mg/dL Calcium (8.4-10.2) mg/dL 10/27/21 10/27/21 10/27/21 Range/Units 14:35 15:24 17:52 WBC (3.8-10.6) k/uL RBC (4.30-5.90) m/uL Hgb (13.0-17.5) gm/dL Hct (39.0-53.0) % MCV (80.0-100.0) fL Neutrophils # (1.3-7.7) k/uL Lymphocytes # (1.0-4.8) k/uL PT (9.0-12.0) sec INR (<1.2) APTT (22.0-30.0) sec ABG pCO2 48 H (35-45) mmHg ABG pO2 77 L (83-108) mmHg ABG HCO3 29 H (21-25) mmol/L ABG Total CO2 30 H (19-24) mmol/L ABG O2 Saturation (94-97) % Chloride (98-107) mmol/L BUN 21 H (9-20) mg/dL Creatinine 0.50 L (0.66-1.25) mg/dL Glucose 123 H (74-99) mg/dL POC Glucose (mg/dL) 119 H (75-99) mg/dL Calcium 7.4 L (8.4-10.2) mg/dL 02/10/22 02/11/22 02/11/22 Range/Units 23:50 05:45 05:54 WBC 12.8 H (3.8-10.6) k/uL RBC 3.74 L (4.30-5.90) m/uL Hgb 12.3 L (13.0-17.5) gm/dL Hct 38.8 L (39.0-53.0) % MCV 103.7 H (80.0-100.0) fL Neutrophils # 11.8 H (1.3-7.7) k/uL Lymphocytes # 0.5 L (1.0-4.8) k/uL PT (9.0-12.0) sec INR (<1.2) APTT (22.0-30.0) sec ABG pCO2 46 H (35-45) mmHg ABG pO2 70 L (83-108) mmHg ABG HCO3 28 H (21-25) mmol/L ABG Total CO2 (19-24) mmol/L ABG O2 Saturation 92.7 L (94-97) % Chloride (98-107) mmol/L BUN (9-20) mg/dL Creatinine (0.66-1.25) mg/dL Glucose (74-99) mg/dL POC Glucose (mg/dL) 128 H (75-99) mg/dL Calcium (8.4-10.2) mg/dL 10/28/21 10/28/21 10/28/21 Range/Units 05:54 05:54 05:57 WBC (3.8-10.6) k/uL RBC (4.30-5.90) m/uL Hgb (13.0-17.5) gm/dL Hct (39.0-53.0) % MCV (80.0-100.0) fL Neutrophils # (1.3-7.7) k/uL Lymphocytes # (1.0-4.8) k/uL PT 13.2 H (9.0-12.0) sec INR 1.3 H (<1.2) APTT (22.0-30.0) sec ABG pCO2 (35-45) mmHg ABG pO2 (83-108) mmHg ABG HCO3 (21-25) mmol/L ABG Total CO2 (19-24) mmol/L ABG O2 Saturation (94-97) % Chloride 108 H (98-107) mmol/L BUN 21 H (9-20) mg/dL Creatinine 0.52 L (0.66-1.25) mg/dL Glucose 135 H (74-99) mg/dL POC Glucose (mg/dL) 127 H (75-99) mg/dL Calcium 7.7 L (8.4-10.2) mg/dL 10/28/21 Range/Units 11:22 WBC (3.8-10.6) k/uL RBC (4.30-5.90) m/uL Hgb (13.0-17.5) gm/dL Hct (39.0-53.0) % MCV (80.0-100.0) fL Neutrophils # (1.3-7.7) k/uL Lymphocytes # (1.0-4.8) k/uL PT (9.0-12.0) sec INR (<1.2) APTT (22.0-30.0) sec ABG pCO2 (35-45) mmHg ABG pO2 (83-108) mmHg ABG HCO3 (21-25) mmol/L ABG Total CO2 (19-24) mmol/L ABG O2 Saturation (94-97) % Chloride (98-107) mmol/L BUN (9-20) mg/dL Creatinine (0.66-1.25) mg/dL Glucose (74-99) mg/dL POC Glucose (mg/dL) 102 H (75-99) mg/dL Calcium (8.4-10.2) mg/dL Microbiology - Last 24 Hours (Table) 10/27/21 13:29 Gram Stain - Preliminary Bronchial Washings - Right Bronchial Washings Culture - Preliminary 10/27/21 13:29 Fungal Culture - Preliminary Bronchial Washings - Right 10/27/21 13:29 Acid Fast Bacilli Culture - Preliminary Bronchial Washings - Right Assessment and Plan Assessment: Impression: Acute hypoxic respiratory failure secondary to bilateral pneumonia, exact etiology is not clear, patient is status post bronchoscopy and transbronchial biopsy with postoperative minimal bleeding, expected, and desaturation requiring keeping the patient on mechanical ventilation till this morning. This is expected considering the patient's pulmonary status was marginal to begin with, and the patient was very well aware that he may require staying on mechanical ventilation Acute non-ST elevation myocardial infarction Acute kidney injury, improving Paroxysmal atrial fibrillation History of COPD Hypertension History of obstructive sleep apnea syndrome Ex-smoker. Status post bronchoscopy and transbronchial biopsy of the right lower lobe and right middle lobe as well as lavage of both., Results are pending. Recommendation: Continue antibiotics. Wean and extubate from mechanical ventilation which was done earlier before this dictation. Patient tolerated pressure support and CPAP weaning easily and he wa s extubated successfully to BiPAP. Continue to hold his cardiac medications as the patient remains bradycardic, Continue to hold Eliquis for now. We will likely transfer later today after extubation to cardiac floor or possibly continue to monitor in the ICU for the next 24 hours. Patient was extubated successfully while I was at bedside. Critical care time is over 30 minutes. Time with Patient: Greater than 30
[2021-10-28] MEDS: SERTRALINE 100 MG TAB PO SCH (16:25)
[2021-10-28 16:49] LABS: Glucose,Whole Blood 136 mg/dL (75-99)
[2021-10-28 21:14] LABS: Glucose,Whole Blood 157 mg/dL (75-99)
[2021-10-28] MEDS: ATORVASTATIN 80 MG TAB PO SCH (21:45)
--- NOTE | 2021-10-28 22:14 | P.PN ---
Progress Note - Text Progress Note Date: 10/28/21 Chief Complaint: Short of breath Hospital course This is a pleasant 76-year-old patient of Dr. Sultana. Chronic stable medical conditions include hypertension, obstructive sleep apnea, DJD, obesity. Depression, Patient presented increasing shortness of breath for 1 week, wheezing. Cough fever periods Sputum Production. Decrease Appetite Tired Rundown. Symptoms Became Progressively Worse. Found to Pulse Ox of 75% in the ER. Put on a BiPAP. Antibiotics. Bronchodilators. Admitted with bilateral pneumonia right greater than left, atrial fibrillation rapid ventricular rate, sepsis, COPD exacerbation. Started on IV cefepime, bronchodilators, IV steroids, IV heparin, IV Cardizem drip. Patient requiring BiPAP. Patient was changed over from IV heparin to eliquis. Beta blockers added. October 17: Breathing better. Decreased sputum production. On 12 L high flow nasal cannula. Had about half his breakfast. Not much appetite for lunch. Requested the patient sit up in a chair. Tired. Patient has been in sinus rhythm. October 18: Remains tired, short of breath. 12 L nasal cannula. Eating some. Vancomycin added by pulmonary. October 19: Tired. Short of breath. Remains on high flow nasal cannula. Intermittent BiPAP. Oral intake very well. Cough. I did today atrial fibrillation with rapid ventricular rate. Lopressor increased to 50 mg 3 times a day by cardiology. October 20: Feeling better. Sitting at the edge of the bed. 8 on his lunch. On 11 L nasal cannula. Patient is in sinus rhythm. Patient was started on oral amiodarone and oral Cardizem yesterday. October 21: Sitting of the edge of the bed. Eating better. 10 liters nasal cannula. Some cough. Sinus rhythm. October 22: Oral intake fair. Feels dryness of the nose and blockage of the nostril. A few nasal drops ordered. 9 L nasal cannula. Back in atrial fibrillation, rate controlled. Cough present. Nasal screen negative for MRSA. October 23: Down to 6 L of nasal cannula. Congested cough present. Currently sinus rhythm. Eating fair. October 24: Remains on 6 L nasal cannula. Oral intake fair. Cough. Sinus rhythm. Some bloodstained sputum. October 25: On 6 L nasal cannula. Some shortness of breath. Congested chest. Dr. Ball discontinued to eliquis to proceed for bronchoscopy on . Patient reminded to use incentive spirometry. October 26: Congested cough. Still bringing up slight bloody sputum. Eliquis was held yesterday. For bronchoscopy tomorrow. Oral intake fair. Remains on 6 L nasal cannula. October 27: Earlier today patient underwent bronchoscopy by Dr. Ball. Significant amount of blood also removed. Patient then taken to the ICU. On the ventilator. FiO2 80% PEEP of 8. On propofol. Sinus rhythm. October 28: ICU. Chest feels much better. Breathing better. No further hemoptysis. Was extubated earlier. On 6 L nasal cannula. Oral intake fair. Has been out of bed. Active Medications Acetaminophen (Acetaminophen Tab 325 Mg Tab) 650 mg PO Q6HR PRN PRN Reason: Mild Pain or Fever > 100.5 Hydrocodone Bitart/Acetaminophen (Hydrocodone/Apap 10-325mg 1 Each Tab) 1 each PO Q6H [facility] Last Admin: 10/28/21 18:34 Dose: 1 each Documented by: Albuterol/Ipratropium (Ipratropium-Albuterol 3 Ml Neb) 3 ml INHALATION RT-Q4H PRN PRN Reason: Shortness Of Breath Or Wheezing Last Admin: 10/17/21 11:28 Dose: 3 ml Documented by: Albuterol/Ipratropium (Ipratropium-Albuterol 3 Ml Neb) 3 ml INHALATION RT-QID [facility] Last Admin: 10/28/21 20:12 Dose: 3 ml Documented by: Atorvastatin Calcium (Atorvastatin 80 Mg Tab) 80 mg PO HS [facility] Last Admin: 10/28/21 21:45 Dose: 80 mg Documented by: Budesonide (Budesonide 1 Mg/2 Ml Nebu) 1 mg INHALATION RT-BID [facility] Last Admin: 10/28/21 20:12 Dose: 1 mg Documented by: Formoterol Fumarate (Formoterol Fumarate 20 Mcg/2 Ml Nebu) 20 mcg INHALATION RT-BID [facility] Last Admin: 10/28/21 20:12 Dose: 20 mcg Documented by: Furosemide (Furosemide 20 Mg Tab) 20 mg PO DAILY [facility] Last Admin: 10/28/21 09:04 Dose: Not Given Documented by: Vancomycin HCl 1,750 mg/ (Sodium Chloride) 500 mls @ 167 mls/hr IVPB Q12H [facility] Last Admin: 10/28/21 12:26 Dose: 167 mls/hr Documented by: Cefepime HCl 2 gm/ Sodium (Chloride) 100 mls @ 25 mls/hr IVPB Q8H [facility] Last Admin: 10/28/21 16:59 Dose: 25 mls/hr Documented by: Sodium Chloride (Saline 0.9%) 1,000 mls @ 75 mls/hr IV .[id number] [facility] Last Admin: 10/28/21 16:29 Dose: 75 mls/hr Documented by: Insulin Aspart (Insulin Aspart (Novolog) 100 Unit/Ml Vial) 0 unit SQ ACHS [facility]; Protocol Last Admin: 10/28/21 21:45 Dose: 3 unit Documented by: Methylprednisolone Sodium Succinate (Methylprednisolone Sod Succi 125 Mg/2 Ml Vial) 60 mg IV Q6HR [facility] Last Admin: 10/28/21 16:59 Dose: 60 mg Documented by: Miscellaneous Information (Vancomycin Trough Due 1 Each Misc) 0 each MISCELLANE DIRECTED ONE Stop: 10/30/21 11:01 Morphine Sulfate (Morphine Sulfate Er 15 Mg Tablet) 15 mg PO BID@0600,1600 [facility]; Protocol Last Admin: 10/28/21 16:25 Dose: 15 mg Documented by: Naloxone HCl (Naloxone 0.4 Mg/Ml 1 Ml Vial) 0.2 mg IV Q2M PRN PRN Reason: Opioid Reversal Pramipexole Dihydrochloride (Pramipexole 1 Mg Tab) 1 mg PO BID@0600,1600 [facility] Last Admin: 10/28/21 16:25 Dose: 1 mg Documented by: Sertraline HCl (Sertraline 100 Mg Tab) 100 mg PO DAILY@1600 [facility] Last Admin: 10/28/21 16:25 Dose: 100 mg Documented by: Past medical history to include: COPD, hypertension, obstructive sleep apnea, DJD, skin cancer Social history: . Smoked for 30 years stopped in 1979. Family history: Reviewed, noncontributory to presentation Physical examination: VITAL SIGNS: Afebrile, 68, 15, 141/72, 94% on 6 L GENERAL: Reclining in bed, awake EYES: Pupils equal. Conjunctiva normal. HEENT: Endotracheal tube. NECK: JVD unable to assess; masses not palpable. HEART: First second sounds normal; no edema. LUNGS: Respiratory rate increased decreased breath sounds ABDOMEN: Soft, nontender, liver spleen not palpable, no masses palpable. PSYCH: Patient sedated MUSCULOSKELETAL:No Clubbing/cyanosis;muscles-grossly intact INVESTIGATIONS, reviewed in the clinical context: October 28: White count 12.8 hemoglobin 12.3 potassium 3.6 creatinine 0.5 to October 27: White count 14.1 hemoglobin 12.4 platelets 383 potassium 3.9 BUN 21 creatinine 0.5 October 26: Potassium 4.4 creatinine 0.61 October 24: Creatinine 0.55 October 23: WBC 18.3 hemoglobin 14.1 platelets 49 potassium 4.7 BUN 23 creatinine 0.6 October 22: Creatinine 0.58 Accu-Cheks noted. Nasal screen negative for MRSA October 21: Creatinine 0.64 October 20: White count 12.9 hemoglobin 13.2 platelets 404 potassium 4.4 creatinine 0.5 to October 19: Potassium 4.5 crit 0.5 October 18: White count 18 hemoglobin 12.5 potassium 4.3 creatinine 0.61 October 17: White count 24.6 hemoglobin 11.9 platelets 277 sodium 141 potassium 4.2 creatinine 0.67. Pro-calcitonin 0.06 Chest x-ray film personally reviewed by me-[October 16] significant right-sided infiltrates White count 25.6 hemoglobin 15.9 platelets 324 increased neutrophils d-dimer 7.48 sodium 138 potassium 4.2. 38 creatinine 1.53 lactic acid 3.8 Troponin I 2.0, 1.7, 1.2 Coronavirus [PCR]: Not detected EKG tracing personally reviewed by me-atrial fibrillation ST-T wave changes, rate 138 Chest angiogram chest: Moderate emphysema. Extensive patchy and confluent consolidation throughout the right lung. Some of the left side 2. Hilar lymphadenopathy. Chest x-ray film personally reviewed by me-extensive infiltrate on the right mid zone and some on the left side 2-D echocardiogram: EF 50-55% Assessment and plan: -Severe pneumonia predominantly right-sided gram-negative organism: Slow to respond Cefepime 2 g every 12 hour. IV vancomycin . Bronchoscopy done October 28: Cultures pending. -Bronchoscopy reveals several blood clots that was removed. Epinephrine was used. Cultures pending -Severe sepsis from pneumonia: Better IV fluids. Antibiotics. -Paroxysmal Atrial fibrillation rapid ventricular rate on presentation. In and out of A. fib. Currently sinus rhythm Beta valente. [Received: IV heparin. IV Cardizem drip] Eliquis, Lopressor 50 mg 3 times a day. By mouth Cordarone. Cardizem 30 mg 3 times a day IV heparin monitoring: Discontinued Follow PTT -Acute COPD exacerbation in a prior smoker: Slow to respond DuoNeb. IV Solu-Medrol 60 mg every 6 -Acute severe hypoxic respiratory failure from pneumonia: Slow to respond Intermittent BiPAP. 6 L high flow nasal cannula -Essential hypertension Zestril 10 mg daily Lopressor 50 mg 3 times a day. Cardizem 30 mg 3 times a day -Restless leg syndrome Mirapex 1 mg twice a day -Depression Zoloft 100 mg daily Primary osteoarthritis multiple joints bilaterally [place] 10 every 6 ICU: IV cefepime. IV vancomycin. IV Solu-Medrol. Extubated earlier today. Activity as tolerated. Bronchoscopy cultures pending. Discussed with patient.
[2021-10-29] MEDS: HYDROcodone/APAP 10-325MG 1 EACH TAB PO SCH ×5 (00:19→18:44)
[2021-10-29] MEDS: methylPREDNISolone SOD SUCCI 125 MG/2 ML VIAL IV SCH ×5 (00:20→23:11)
[2021-10-29] MEDS: VANCOMYCIN 1,750 MG in SODIUM CHLORIDE 0.9% 500 ML 500 ML IVPB SCH ×3 (00:21→23:12)
[2021-10-29] MEDS: CEFEPIME 2 GM in SODIUM CHLORIDE 0.9% 100 ML IVPB SCH ×3 (02:52→18:36)
[2021-10-29] MEDS: MORPHINE SULFATE ER 15 MG TABLET PO SCH ×2 (06:45→16:50)
--- NOTE | 2021-10-29 06:45 | XR ---
EXAMINATION TYPE: XR chest 1V portable DATE OF EXAM: 10/29/2021 5:22 AM COMPARISON:Chest radiograph from one day prior. TECHNIQUE: XR chest 1V portable Frontal view of the chest. CLINICAL INDICATION:Male, 76 years old with history of Tube placement; FINDINGS: Lungs/Pleura: Similar multifocal airspace opacities which are predominantly right-sided. No evidence of pneumothorax. Suspected small right pleural effusion. Pulmonary vascularity: Unremarkable. Heart/mediastinum: Cardiomediastinal silhouette is partially obscured due to overlying and adjacent o pacities. Musculoskeletal: No acute osseous pathology. Other findings: None Lines/Tubes: Removal of endotracheal and nasogastric. IMPRESSION: 1. Similar multifocal airspace opacities. 2. Interval removal of the support tubes.
[2021-10-29] MEDS: PRAMIPEXOLE 1 MG TAB PO SCH ×2 (06:46→16:50)
[2021-10-29 06:58] LABS: Glucose,Whole Blood 116 mg/dL (75-99)
[2021-10-29] MEDS: IPRATROPIUM-ALBUTEROL 3 ML NEB INHALATION SCH ×4 (07:34→21:36)
[2021-10-29] MEDS: FORMOTEROL FUMARATE 20 MCG/2 ML NEBU INHALATION SCH ×2 (07:34→21:37)
[2021-10-29] MEDS: BUDESONIDE 1 MG/2 ML NEBU INHALATION SCH ×2 (07:34→21:36)
[2021-10-29 07:57] LABS: Basophils % (A) 0 %; Eosinophils % (A) 0 %; HCT 42.3 % (39.0-53.0); HGB 13.4 gm/dL (13.0-17.5); Hypochromasia Slight; Lymphocytes # (A) 0.3 k/uL (1.0-4.8); Lymphocytes % (A) 2 %; MCH 32.4 pg (25.0-35.0); MCHC 31.6 g/dL (31.0-37.0); MCV 102.4 fL (80.0-100.0); Macrocytosis Slight; Mean Platelet Volume 7.4; Monocytes # (A) 0.5 k/uL (0-1.0); Monocytes % (A) 3 %; Neutrophils # (A) 18.7 k/uL (1.3-7.7); Neutrophils % (A) 95 %; Platelet Count 339 k/uL (150-450); RBC 4.13 m/uL (4.30-5.90); RDW 14.3 % (11.5-15.5); WBC 19.6 k/uL (3.8-10.6)
[2021-10-29 08:01] LABS: INR 1.1 (<1.2); Partial Thromboplastin Time 26.3 sec (22.0-30.0); Prothrombin Time 11.9 sec (9.0-12.0)
[2021-10-29 08:08] LABS: African American GFR (CKD) >90 (>60 ml/min/1.73 sqM); Anion Gap 0 mmol/L; Blood Urea Nitrogen 22 mg/dL (9-20); Calcium 7.7 mg/dL (8.4-10.2); Carbon Dioxide 29 mmol/L (22-30); Chloride 110 mmol/L (98-107); Glucose 135 mg/dL (74-99); Non-African American GFR(CKD) >90 (>60 ml/min/1.73 sqM); Potassium 3.8 mmol/L (3.5-5.1); Sodium 139 mmol/L (137-145)
[2021-10-29] MEDS: INSULIN ASPART (NovoLOG) 100 UNIT/ML VIAL SQ SCH ×4 (08:56→20:05)
[2021-10-29] MEDS: SODIUM CHLORIDE 0.9% 1,000 ML IV SCH (09:11)
[2021-10-29] MEDS: FUROSEMIDE 20 MG TAB PO SCH (09:12)
[2021-10-29] MEDS ORDERED: METOPROLOL TARTRATE 50 MG TAB PO SCH (09:15)
[2021-10-29] MEDS: SODIUM CHLORIDE 0.9% 500 ML 500 ML IV SCH (09:30)
--- NOTE | 2021-10-29 11:16 | P.PN ---
Subjective Progress Note Date: 10/29/21 Principal diagnosis: Acute hypoxic respiratory failure secondary to bilateral pneumonia right more so than left. On 10/24/2021 patient seen in follow-up on selective care unit, he sitting up on the edge of the bed, breathing comfortably, he is currently down to 6 L of oxygen pulse ox is 92%, lung sounds are still positive for diffuse wheezes and rhonchi, but overall patient's is feeling better, oxygenation has improved although the chest x-ray still showing persistent areas of infiltrate with chronic parenchymal changes with confluent increased right mid to lower lung op[place] city silhouetting the right heart border and hemidiaphragm and scattered left- sided more central opacities. Patient has completed a course of cefepime, remains on vancomycin, so far there is been no growth on the blood and sputum cultures. He also continues on IV steroids with Solu-Medrol gram every 8 hours, he is on daily dose of Lasix, cough medicine, nebulized bronchodilators. Denies any chest discomfort, no hemoptysis. Breathing fairly easily. Yesterday's labs have been reviewed, his white blood cell count was 18.3, hemoglobin is 14.1 and electrolytes are unremarkable, BUN is 23 creatinine 0.6 On 10/25/2021 patient seen in follow-up on selective care unit, he remains on 6 L of oxygen pulse ox is 90%, he sounds are rhonchorous, congested, however he is not able to bring up much phlegm. Yesterday he was having some phlegm production with a blood-tinged mucus. We added cefepime back on, he remains on vancomycin, CULTURE data is negative, he is afebrile, does not appear to be in any acute distress, hemodynamically his been stable. His chest x-ray findings from yesterday was still showing significant right mid and lower lung consolidation. He continues on IV steroids and breathing treatments, he is on oral dose of Lasix. Follow up procalcitonn was negative at 0.03. His creatinine was 0.5 on yesterday's labs, Vanco trough was 15.3. On October 26, 2021 patient seen in follow-up on selective care unit, he still feels short of breath, his cough is congested but nonproductive. He is on 6 L of oxygen his pulse ox is 90-93%, lung sounds are diminished, with the scattered wheezes and rhonchi, patient continues on a combination of cefepime and vancomycin he has been slow to improve, his follow-up chest x-ray today shows stable right mid and lower lung opacity. Denies chest pain or hemoptysis, does have exertional dyspnea, patient continues on IV steroids with Solu-Medrol 60 mg every 6 hours, antibiotics as mentioned above, all his culture data has been negative. His been afebrile, hemodynamically he has been stable. His Eliquis has been on hold since yesterday and we discussed bronchoscopy with BAL and possible biopsies tomorrow on , 10/27/2021 with which the patient is agreeable to proceed. On 10/27/2021 patient seen in follow-up on selective care unit, he is awake and alert, in no acute distress, he is on 6 L of oxygen pulse ox is 92-94%, his been afebrile overnight, hemodynamically has been stable, lung sounds reveal diffuse rhonchi bilaterally, patient has been having a congested cough, at times his been bringing up some dark-colored blood-tinged sputum. But most of the time his cough has been nonproductive, he remains on a combination of cefepime and vancomycin, his culture data remains negative thus far. His Eliquis is on hold, patient is in sinus mechanism with a controlled rate, yesterday his chest x-ray did not show significant improvement in appearance of his right lung pneumonia with addition of infiltration in the left upper lobe. he is scheduled for bronchoscopy with BAL and possible biopsies today at 12:30, his been nothing by mouth after midnight. On 10/28/2021, patient was evaluated today in the ICU, he underwent a bronchoscopy, bronchoalveolar lavage and transbronchial biopsy yesterday, initial findings on the bronchoscopy showed significant amount of old blood in the airway especially in the right mainstem bronchus and left mainstem bronchus, and these were lavaged. And suctioned with difficulty but nonetheless it was all cleared and I was able to visualize basically clear airways without any ac tive bleeding. Then patient underwent transbronchial biopsies and lavage of the right middle lobe and right lower lobe, this was done under fluoroscopy guidance. There was evidence of postoperative bleeding, required another look down the airways, and the bleeding was felt to be not significant however I did apply some epinephrine in the right lower lobe lateral segment where the biopsies were taken mostly. And there was very minimal oozing of blood. However considering the patient was desaturating and required to be on relatively high FiO2, I chose not to extubate him yesterday, and I kept him on mechanical ventilation sedated until this morning. This morning, I took the patient off sedation, and gave the patient a very short trial of weaning on pressure support of 10 and CPAP. And I was at bedside during this period patient tolerated the weaning process quite nicely, then I proceeded to extubating the patient to BiPAP which I will transition to nasal cannula as he tolerates it. In the meantime we'll advance his diet postextubation. Patient was noted to be quite bradycardic yesterday, and some of his cardiac medications for atrial fibrillation remain on hold at present. Patient has sinus bradycardia currently rate in the 50s. Chest x-ray continues to show bilateral infiltrates, but chest x-ray today is improved compared to chest x-ray yesterday post bronchoscopy and biopsy. His CBC is relatively unremarkable. Hemoglobin is 12.3. INR is 1.3. ABG on 60% showed a pO2 of 70 pCO2 46 patient of 7.40 and this was on assist control rate of 20, volume is 500 FiO2 60% and PEEP of 8 Reevaluated today on 10/29/2021, patient remains in the ICU, however he has demonstrated a significant improvement over the last 24 hours. Feeling better, he is on 6 L high flow nasal cannula, not using BiPAP, patient is experiencing intermittent episodes of blood-tinged sputum hence I'm keeping his anticoagulations therapy on hold, his heart rate is normal, he is in sinus rhythm, I am planning to discontinue his amiodarone altogether, but I will place the patient back on his beta blockers metoprolol 50 mg by mouth twice a day. Again considering the patient had chronic history of hemoptysis, I prefer not to place the patient back on any anticoagulation therapy not to mention the patient is presently in normal sinus rhythm. WBC count today is 19.6 hemoglobin 13.4. Electrolytes are normal renal profile is normal. Remains on antibiotics, and we will continue until we get some answer from the cultures from the BAL and get the results of the transbronchial biopsy done Objective - Vital Signs Vital signs: Vital Signs Temp 98.1 F 10/29/21 09:00 Pulse 76 02/12/22 09:00 Resp 12 10/29/21 09:00 BP 165/74 10/29/21 09:00 Pulse Ox 91 L 10/29/21 09:00 Intake & Output 10/28/21 10/29/21 10/29/21 18:59 06:59 18:59 Intake Total 1600 1500 570 Output Total 835 745 155 Balance 765 755 415 Weight 121 kg 123.8 kg Intake: Intake, IV Titration 1600 900 170 Amount Cefepime 2 gm In Sodium 200 Chloride 0.9% 100 ml @ 25 mls/hr IVPB Q8H [facility] Rx#: [id number] Sodium Chloride 0.9% 1, 900 900 170 000 ml @ 75 mls/hr IV . [id number] [facility] Rx#:[id number] Vancomycin 1,750 mg In 500 Sodium Chloride 0.9% 500 ml 500 ml @ 167 mls/hr IVPB Q12H [facility] Rx#: [id number] Oral 600 400 Output: Urine 835 745 155 Other: Voiding Method Indwelling Catheter Indwelling Catheter Indwelling Catheter - Exam GENERAL EXAM: Revealed a 76-year-old white male on nasal cannula, in no distress. HEAD: Normocephalic/atraumatic. HEENT: PERRLA, EOMI, nonicteric, no neck masses, moist mucous membranes. CHEST: No chest wall deformity. Symmetrical expansion. LUNGS: Crackles at the right base. No rhonchi and no wheezes. CVS: Regular rate and rhythm, normal S1 and S2, no gallops, no murmurs, no rubs ABDOMEN: Soft, nontender. No hepatosplenomegaly, normal bowel sounds, no guarding or rigidity. EXTREMITIES: No clubbing, no edema, no cyanosis, 2+ pulses and upper and lower extremities. MUSCULOSKELETAL: Muscle strength and tone normal. CENTRAL NERVOUS SYSTEM: Alert and oriented 3 no gross focal deficit. Psychiatric: Normal mood affect and normal mental status examination. - Labs CBC & Chem 7: 10/29/21 07:39 10/29/21 07:39 Labs: Abnormal Lab Results - Last 24 Hours (Table) 10/28/21 10/28/21 10/28/21 Range/Units 11:22 16:47 21:13 WBC (3.8-10.6) k/uL RBC (4.30-5.90) m/uL MCV (80.0-100.0) fL Neutrophils # (1.3-7.7) k/uL Lymphocytes # (1.0-4.8) k/uL Chloride (98-107) mmol/L BUN (9-20) mg/dL Creatinine (0.66-1.25) mg/dL Glucose (74-99) mg/dL POC Glucose (mg/dL) 102 H 136 H 157 H (75-99) mg/dL Calcium (8.4-10.2) mg/dL 10/29/21 10/29/21 10/29/21 Range/Units 06:56 07:39 07:39 WBC 19.6 H (3.8-10.6) k/uL RBC 4.13 L (4.30-5.90) m/uL MCV 102.4 H (80.0-100.0) fL Neutrophils # 18.7 H (1.3-7.7) k/uL Lymphocytes # 0.3 L (1.0-4.8) k/uL Chloride 110 H (98-107) mmol/L BUN 22 H (9-20) mg/dL Creatinine 0.57 L (0.66-1.25) mg/dL Glucose 135 H (74-99) mg/dL POC Glucose (mg/dL) 116 H (75-99) mg/dL Calcium 7.7 L (8.4-10.2) mg/dL Microbiology - Last 24 Hours (Table) 10/27/21 13:29 Gram Stain - Final Bronchial Washings - Right Bronchial Washings Culture - Final Teri albicans 10/27/21 13:29 Acid Fast Bacilli Smear - Final Bronchial Washings - Right Acid Fast Bacilli Culture - Preliminary Assessment and Plan Assessment: Impression: Acute hypoxic respiratory failure secondary to bilateral pneumonia, exact etiology is not clear, patient is status post bronchoscopy and transbronchial biopsy with postoperative minimal bleeding, expected, and desaturation requiring keeping the patient on mechanical ventilation till 10/28/2021 were and the patient was extubated uneventfully Acute non-ST elevation myocardial infarction Acute kidney injury, improving Paroxysmal atrial fibrillation History of COPD Hypertension History of obstructive sleep apnea syndrome Ex-smoker. Status post bronchoscopy and transbronchial biopsy of the right lower lobe and right middle lobe as well as lavage of both., Results are pending. Recommendation: Continue antibiotics. Continue oxygen and titrate accordingly Continue bronchodilators. Continue to hold anticoagulation therapy patient is now in sinus rhythm. Resume beta blockers Continue to hold amiodarone as the patient may potentially have amiodarone- induced lung injury Transfer patient to the cardiac floor today. We'll continue to follow Time with Patient: Less than 30
[2021-10-29 11:26] LABS: Glucose,Whole Blood 160 mg/dL (75-99)
[2021-10-29] MEDS ORDERED: METOPROLOL TARTRATE 25 MG TAB PO STA (13:09)
--- NOTE | 2021-10-29 13:09 | P.PN ---
Subjective This is a 76-year-old gentleman with a past medical history significant for hypertension and dyslipidemia and sleep apnea and also chronic obstructive pulmonary disease, presented to the emergency department complaining of shortness of breath. We consulted to see the patient for further evaluation of abnormal cardiac enzymes and elevated troponin. The patient states that for the last few days he has not been feeding well. He has been experiencing increasing in the temperature associated with cough productive of sputum. Beside that he was experiencing increasing in the shortness of breath but no symptoms of chest pain or chest discomfort and no dizziness or lightheadedness or any feeling of heart racing or fluttering or presyncope or syncope. In the ER the patient was found to be hypoxic with oxygen saturation of 75% and subsequently he was placed on BiPAP with improvement in his oxygenation. Also he presented to the emergency department he was in atrial fibrillation with RVR and subsequently converted to normal sinus mechanism after he was started on Cardizem IV. Currently he is in sinus rhythm was sinus bradycardia. He still on Cardizem IV. He is also on heparin IV. The patient underwent a workup including EKG as desc ribed earlier showing A. fib with diffuse nonspecific ST and T wave abnormalities. No EKG after the patient was converted to normal sinus mechanism. Also the troponin came in to be elevated. The chest x-ray showed findings consistent with a pneumonia. He underwent a computed tomography scan of the chest which showed multiple findings including no pulmonary embolism, bilateral hilar adenopathy, bilateral infiltrate, and also small to moderate pericardial effusion, heart failure. 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 When he was seen and examined he was in bilateral expiratory wheezing with regular heart sounds and states bilateral lower extremities edema 10/15/21 Echocardiogram revealed an EF between 50 and 55% with mild mitral and tricuspid regurgitation, mild aortic valve sclerosis, and moderately enlarged right ventricle with left ventricular hypertrophy. 10/25/2021 Patient examined this morning. Patient is sitting up in bed. He denies chest pain or pressure. He reports improvement in his shortness of breath, however, continues to have difficulty bringing up sputum. He denies any further bleeding in his stool. Patient's blood pressure improved with BP 148/63 and this morning with a BP 187/90 prior to his medications, we will monitor patient's BP trend . Telemetry reviewed, patient maintaining sinus mechanism. Meds: amiodarone 200 mg twice a day (started on 10/23/21), Eliquis 5 mg twice a day, aspirin 81 mg daily, atorvastatin 80 mg nightly, Cardizem 120 mg daily, Lasix 20 mg daily, lisinopril 10 mg twice a day, metoprolol titrate 50 mg 3 times a day 10/27 Patient seen and examined. Undewent bronch with BAL today. After bronch while on vent he has been bradycardic with HR's in the 40's and in and out of afib with conversion pauses up to 4 seconds. Therefore amio, metoprolol and Cardizem have been held. Currently HR's at 40 with sinus rhythm without any efffect on BP. 10/28 Patient seen and examined. Patient underwent bronchoscopy with BAL yesterday with some concern of hemoptysis additionally. No further hemoptysis however NG tube does have some coffee-ground appearing fluid. Continues to be in sinus rhythm with sinus bradycardia currently 43 bpm. He remained sedated however not much change when he is woken up. Hemodynamically he appears stable. Blood pressure including lisinopril has been held and all negative chronotropic have been held. Hemoglobin stable at 12.3. 10/29 Patient seen and examined. He was extubated. Patient has been having some coughing up what he describes as clots and anticoagulation has been on hold. Amiodarone also has done discontinued secondary to concern of amiodarone-induced lung injury. Heart rates in the 110-120 range and patient was placed back on metoprolol however when goes in the sinus heart rates in the 60 range. PHYSICAL EXAM: VITAL SIGNS: Reviewed. GENERAL: Well-developed in no acute distress. Intubated NECK: Supple. No JVD or thyromegaly LUNGS: Respirations even and unlabored. Lungs diminished with scattered rhonchi, decreased breath sounds on right HEART: Bradycardic rhythm. S1 and S2 heard. EXTREMITIES: Normal range of motion. No clubbing or cyanosis. Peripheral pulses intact. 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 Patient still going in and out of atrial fibrillation and sinus rhythm. When in A. fib heart rates usually 110s and when in sinus rhythm heart rates in the 60s. We will increase the metoprolol to 75 mg twice a day and additionally add flecainide. Avoid amiodarone for now given pulmonary concern of lung toxicity. Objective - Vital Signs Vital signs: Vital Signs Temp 98.1 F 10/29/21 09:00 Pulse 124 H 10/29/21 12:00 Resp 25 H 10/29/21 12:00 BP 167/97 10/29/21 12:00 Pulse Ox 93 L 10/29/21 12:00 Intake & Output 10/28/21 10/29/21 10/29/21 18:59 06:59 18:59 Intake Total 1600 1500 930 Output Total 364 179 5719 Balance 765 755 -275 Weight 121 kg 123.8 kg Intake: Intake, IV Titration 1600 900 230 Amount Cefepime 2 gm In Sodium 200 Chloride 0.9% 100 ml @ 25 mls/hr IVPB Q8H [facility] Rx#: [id number] Sodium Chloride 0.9% 1, 900 900 230 000 ml @ 75 mls/hr IV . [id number] [facility] Rx#:[id number] Vancomycin 1,750 mg In 500 Sodium Chloride 0.9% 500 ml 500 ml @ 167 mls/hr IVPB Q12H [facility] Rx#: [id number] Oral 600 700 Output: Urine [id number] Other: Voiding Method Indwelling Catheter Indwelling Catheter Indwelling Catheter - Labs CBC & Chem 7: 10/29/21 07:39 10/29/21 07:39 Labs: Abnormal Lab Results - Last 24 Hours (Table) 10/28/21 10/28/21 10/29/21 Range/Units 16:47 21:13 06:56 WBC (3.8-10.6) k/uL RBC (4.30-5.90) m/uL MCV (80.0-100.0) fL Neutrophils # (1.3-7.7) k/uL Lymphocytes # (1.0-4.8) k/uL Chloride (98-107) mmol/L BUN (9-20) mg/dL Creatinine (0.66-1.25) mg/dL Glucose (74-99) mg/dL POC Glucose (mg/dL) 136 H 157 H 116 H (75-99) mg/dL Calcium (8.4-10.2) mg/dL 10/29/21 10/29/21 10/29/21 Range/Units 07:39 07:39 11:24 WBC 19.6 H (3.8-10.6) k/uL RBC 4.13 L (4.30-5.90) m/uL MCV 102.4 H (80.0-100.0) fL Neutrophils # 18.7 H (1.3-7.7) k/uL Lymphocytes # 0.3 L (1.0-4.8) k/uL Chloride 110 H (98-107) mmol/L BUN 22 H (9-20) mg/dL Creatinine 0.57 L (0.66-1.25) mg/dL Glucose 135 H (74-99) mg/dL POC Glucose (mg/dL) 160 H (75-99) mg/dL Calcium 7.7 L (8.4-10.2) mg/dL Microbiology - Last 24 Hours (Table) 10/27/21 13:29 Gram Stain - Final Bronchial Washings - Right Bronchial Washings Culture - Final Teri albicans 10/27/21 13:29 Acid Fast Bacilli Smear - Final Bronchial Washings - Right Acid Fast Bacilli Culture - Preliminary
[2021-10-29] MEDS: FLECAINIDE 50 MG TAB PO SCH ×2 (13:47→20:00)
--- NOTE | 2021-10-29 14:10 | P.PN ---
Progress Note - Text Progress Note Date: 10/29/21 Chief Complaint: Short of breath Hospital course This is a pleasant 76-year-old patient of Dr. Sultana. Chronic stable medical conditions include hypertension, obstructive sleep apnea, DJD, obesity. Depression, Patient presented increasing shortness of breath for 1 week, wheezing. Cough fever periods Sputum Production. Decrease Appetite Tired Rundown. Symptoms Became Progressively Worse. Found to Pulse Ox of 75% in the ER. Put on a BiPAP. Antibiotics. Bronchodilators. Admitted with bilateral pneumonia right greater than left, atrial fibrillation rapid ventricular rate, sepsis, COPD exacerbation. Started on IV cefepime, bronchodilators, IV steroids, IV heparin, IV Cardizem drip. Patient requiring BiPAP. Patient was changed over from IV heparin to eliquis. Beta blockers added. October 17: Breathing better. Decreased sputum production. On 12 L high flow nasal cannula. Had about half his breakfast. Not much appetite for lunch. Requested the patient sit up in a chair. Tired. Patient has been in sinus rhythm. October 18: Remains tired, short of breath. 12 L nasal cannula. Eating some. Vancomycin added by pulmonary. October 19: Tired. Short of breath. Remains on high flow nasal cannula. Intermittent BiPAP. Oral intake very well. Cough. I did today atrial fibrillation with rapid ventricular rate. Lopressor increased to 50 mg 3 times a day by cardiology. October 20: Feeling better. Sitting at the edge of the bed. 8 on his lunch. On 11 L nasal cannula. Patient is in sinus rhythm. Patient was started on oral amiodarone and oral Cardizem yesterday. October 21: Sitting of the edge of the bed. Eating better. 10 liters nasal cannula. Some cough. Sinus rhythm. October 22: Oral intake fair. Feels dryness of the nose and blockage of the nostril. A few nasal drops ordered. 9 L nasal cannula. Back in atrial fibrillation, rate controlled. Cough present. Nasal screen negative for MRSA. October 23: Down to 6 L of nasal cannula. Congested cough present. Currently sinus rhythm. Eating fair. October 24: Remains on 6 L nasal cannula. Oral intake fair. Cough. Sinus rhythm. Some bloodstained sputum. October 25: On 6 L nasal cannula. Some shortness of breath. Congested chest. Dr. Ball discontinued to eliquis to proceed for bronchoscopy on . Patient reminded to use incentive spirometry. October 26: Congested cough. Still bringing up slight bloody sputum. Eliquis was held yesterday. For bronchoscopy tomorrow. Oral intake fair. Remains on 6 L nasal cannula. October 27: Earlier today patient underwent bronchoscopy by Dr. Ball. Significant amount of blood also removed. Patient then taken to the ICU. On the ventilator. FiO2 80% PEEP of 8. On propofol. Sinus rhythm. October 28: ICU. Chest feels much better. Breathing better. No further hemoptysis. Was extubated earlier. On 6 L nasal cannula. Oral intake fair. Has been out of bed. October 29: ICU. Remains on 6 L nasal cannula. No BiPAP. Small amount of hemoptysis. Remains off anticoagulation. Eating better. In and out of sinus rhythm. Active Medications Acetaminophen (Acetaminophen Tab 325 Mg Tab) 650 mg PO Q6HR PRN PRN Reason: Mild Pain or Fever > 100.5 Hydrocodone Bitart/Acetaminophen (Hydrocodone/Apap 10-325mg 1 Each Tab) 1 each PO Q6H [facility] Last Admin: 10/29/21 11:53 Dose: 1 each Documented by: Albuterol/Ipratropium (Ipratropium-Albuterol 3 Ml Neb) 3 ml INHALATION RT-Q4H PRN PRN Reason: Shortness Of Breath Or Wheezing Last Admin: 10/17/21 11:28 Dose: 3 ml Documented by: Albuterol/Ipratropium (Ipratropium-Albuterol 3 Ml Neb) 3 ml INHALATION RT-QID [facility] Last Admin: 10/29/21 11:46 Dose: Not Given Documented by: Atorvastatin Calcium (Atorvastatin 80 Mg Tab) 80 mg PO HS [facility] Last Admin: 10/28/21 21:45 Dose: 80 mg Documented by: Budesonide (Budesonide 1 Mg/2 Ml Nebu) 1 mg INHALATION RT-BID [facility] Last Admin: 10/29/21 07:34 Dose: 1 mg Documented by: Flecainide Acetate (Flecainide 50 Mg Tab) 50 mg PO Q12HR [facility] Last Admin: 10/29/21 13:47 Dose: 50 mg Documented by: Formoterol Fumarate (Formoterol Fumarate 20 Mcg/2 Ml Nebu) 20 mcg INHALATION RT-BID [facility] Last Admin: 10/29/21 07:34 Dose: 20 mcg Documented by: Furosemide (Furosemide 20 Mg Tab) 20 mg PO DAILY [facility] Last Admin: 10/29/21 09:12 Dose: 20 mg Documented by: Vancomycin HCl 1,750 mg/ (Sodium Chloride) 500 mls @ 167 mls/hr IVPB Q12H [facility] Last Admin: 10/29/21 11:53 Dose: 167 mls/hr Documented by: Cefepime HCl 2 gm/ Sodium (Chloride) 100 mls @ 25 mls/hr IVPB Q8H [facility] Last Admin: 10/29/21 09:23 Dose: 25 mls/hr Documented by: Sodium Chloride (Saline 0.9%) 500 mls @ 20 mls/hr IV .Q24H [facility] Last Admin: 10/29/21 09:30 Dose: 20 mls/hr Documented by: Insulin Aspart (Insulin Aspart (Novolog) 100 Unit/Ml Vial) 0 unit SQ ACHS [facility]; Protocol Last Admin: 10/29/21 11:53 Dose: 3 unit Documented by: Methylprednisolone Sodium Succinate (Methylprednisolone Sod Succi 125 Mg/2 Ml Vial) 60 mg IV Q6HR [facility] Last Admin: 10/29/21 11:52 Dose: 60 mg Documented by: Metoprolol Tartrate (Metoprolol Tartrate 25 Mg Tab) 75 mg PO BID [facility] Miscellaneous Information (Vancomycin Trough Due 1 Each Misc) 0 each MISCELLANE DIRECTED ONE Stop: 10/30/21 11:01 Morphine Sulfate (Morphine Sulfate Er 15 Mg Tablet) 15 mg PO BID@0600,1600 [facility]; Protocol Last Admin: 10/29/21 06:45 Dose: 15 mg Documented by: Naloxone HCl (Naloxone 0.4 Mg/Ml 1 Ml Vial) 0.2 mg IV Q2M PRN PRN Reason: Opioid Reversal Pramipexole Dihydrochloride (Pramipexole 1 Mg Tab) 1 mg PO BID@0600,1600 [facility] Last Admin: 10/29/21 06:46 Dose: 1 mg Documented by: Sertraline HCl (Sertraline 100 Mg Tab) 100 mg PO DAILY@1600 [facility] Last Admin: 10/28/21 16:25 Dose: 100 mg Documented by: Past medical history to include: COPD, hypertension, obstructive sleep apnea, DJD, skin cancer Social history: . Smoked for 30 years stopped in 1979. Family history: Reviewed, noncontributory to presentation Physical examination: VITAL SIGNS: Febrile, 106, 18, 163/119, 92% on 5 L GENERAL: Reclining in bed, awake EYES: Pupils equal. Conjunctiva normal. HEENT: Endotracheal tube. NECK: JVD unable to assess; masses not palpable. HEART: First second sounds normal; no edema. LUNGS: Respiratory rate increased decreased breath sounds ABDOMEN: Soft, nontender, liver spleen not palpable, no masses palpable. PSYCH: Patient sedated MUSCULOSKELETAL:No Clubbing/cyanosis;muscles-grossly intact INVESTIGATIONS, reviewed in the clinical context: October 29: White count 9.6 hemoglobin 13.4 potassium 3.8 creatinine 0.57 October 28: White count 12.8 hemoglobin 12.3 potassium 3.6 creatinine 0.5 to October 27: White count 14.1 hemoglobin 12.4 platelets 383 potassium 3.9 BUN 21 creatinine 0.5 October 26: Potassium 4.4 creatinine 0.61 October 24: Creatinine 0.55 October 23: WBC 18.3 hemoglobin 14.1 platelets 49 potassium 4.7 BUN 23 creatinine 0.6 October 22: Creatinine 0.58 Accu-Cheks noted. Nasal screen negative for MRSA October 21: Creatinine 0.64 October 20: White count 12.9 hemoglobin 13.2 platelets 404 potassium 4.4 creatinine 0.5 to October 2: Potassium 4.5 crit 0.5 October 18: White count 18 hemoglobin 12.5 potassium 4.3 creatinine 0.61 October 17: White count 24.6 hemoglobin 11.9 platelets 277 sodium 141 potassium 4.2 creatinine 0.67. Pro-calcitonin 0.06 Chest x-ray film personally reviewed by me-[October 16] significant right-sided infiltrates White count 25.6 hemoglobin 15.9 platelets 324 increased neutrophils d-dimer 7.48 sodium 138 potassium 4.2. 38 creatinine 1.53 lactic acid 3.8 Troponin I 2.0, 1.7, 1.2 Coronavirus [PCR]: Not detected EKG tracing personally reviewed by me-atrial fibrillation ST-T wave changes, rate 138 Chest angiogram chest: Moderate emphysema. Extensive patchy and confluent consolidation throughout the right lung. Some of the left side 2. Hilar lymphadenopathy. Chest x-ray film personally reviewed by me-extensive infiltrate on the right mid zone and some on the left side 2-D echocardiogram: EF 50-55% Assessment and plan: -Severe pneumonia predominantly right-sided gram-negative organism: Slow to respond Cefepime 2 g every 12 hour. IV vancomycin . Bronchoscopy done October 28: Cultures pending. -Bronchoscopy reveals several blood clots that was removed. Epinephrine was used. Cultures pending -Severe sepsis from pneumonia: Better IV fluids. Antibiotics. -Paroxysmal Atrial fibrillation rapid ventricular rate on presentation. In and out of A. fib. Beta valente. [Received: IV heparin. IV Cardizem drip] Eliquis, Lopressor 75 twice a day. Amiodarone discontinued. Cardizem discontinued. Flecainide started. IV heparin monitoring: Discontinued Follow PTT -Acute COPD exacerbation in a prior smoker: Slow to respond DuoNeb. IV Solu-Medrol 60 mg every 6 -Acute severe hypoxic respiratory failure from pneumonia: Slow to respond Intermittent BiPAP. 6 L high flow nasal cannula -Essential hypertension Zestril 10 mg daily Lopressor 50 mg 3 times a day. Cardizem 30 mg 3 times a day -Restless leg syndrome Mirapex 1 mg twice a day -Depression Zoloft 100 mg daily Primary osteoarthritis multiple joints bilaterally Rentz 10 every 6 ICU: IV cefepime. IV vancomycin. IV Solu-Medrol. Lopressor 75 mg twice a day. Started on flecainide. Hold anticoagulation because of small amount of hemoptysis.
[2021-10-29] MEDS: SERTRALINE 100 MG TAB PO SCH (16:50)
[2021-10-29] MEDS: METOPROLOL TARTRATE 25 MG TAB PO SCH (19:59)
[2021-10-29] MEDS: ATORVASTATIN 80 MG TAB PO SCH (19:59)
[2021-10-29 20:06] LABS: Glucose,Whole Blood 126 mg/dL (75-99)
[2021-10-30] MEDS: HYDROcodone/APAP 10-325MG 1 EACH TAB PO SCH (01:21)
[2021-10-30] MEDS: CEFEPIME 2 GM in SODIUM CHLORIDE 0.9% 100 ML IVPB SCH ×3 (01:23→18:29)
[2021-10-30] MEDS ORDERED: ONDANSETRON 4 MG TAB PO PRN (05:04)
[2021-10-30] MEDS: MORPHINE SULFATE ER 15 MG TABLET PO SCH ×2 (05:24→16:48)
[2021-10-30] MEDS: methylPREDNISolone SOD SUCCI 125 MG/2 ML VIAL IV SCH ×4 (05:25→23:55)
[2021-10-30] MEDS: PRAMIPEXOLE 1 MG TAB PO SCH ×2 (05:31→16:50)
[2021-10-30 07:02] LABS: Glucose,Whole Blood 111 mg/dL (75-99)
[2021-10-30] MEDS: INSULIN ASPART (NovoLOG) 100 UNIT/ML VIAL SQ SCH ×4 (07:02→21:39)
[2021-10-30] MEDS: FORMOTEROL FUMARATE 20 MCG/2 ML NEBU INHALATION SCH ×3 (07:25→20:30)
[2021-10-30] MEDS: BUDESONIDE 1 MG/2 ML NEBU INHALATION SCH ×3 (07:25→20:30)
[2021-10-30] MEDS: IPRATROPIUM-ALBUTEROL 3 ML NEB INHALATION SCH ×5 (07:25→20:30)
[2021-10-30 07:45] LABS: Basophils % (A) 0 %; Eosinophils % (A) 0 %; HCT 44.1 % (39.0-53.0); HGB 14.2 gm/dL (13.0-17.5); Lymphocytes # (A) 0.4 k/uL (1.0-4.8); Lymphocytes % (A) 2 %; MCH 32.8 pg (25.0-35.0); MCHC 32.2 g/dL (31.0-37.0); MCV 101.7 fL (80.0-100.0); Macrocytosis Slight; Mean Platelet Volume 7.5; Monocytes # (A) 0.7 k/uL (0-1.0); Monocytes % (A) 3 %; Neutrophils # (A) 19.2 k/uL (1.3-7.7); Neutrophils % (A) 95 %; Platelet Count 347 k/uL (150-450); RBC 4.33 m/uL (4.30-5.90); RDW 14.2 % (11.5-15.5); WBC 20.3 k/uL (3.8-10.6)
[2021-10-30 07:53] LABS: INR 1.1 (<1.2); Partial Thromboplastin Time 25.6 sec (22.0-30.0); Prothrombin Time 11.6 sec (9.0-12.0)
[2021-10-30 07:55] LABS: African American GFR (CKD) >90 (>60 ml/min/1.73 sqM); Anion Gap 0 mmol/L; Blood Urea Nitrogen 22 mg/dL (9-20); Calcium 7.9 mg/dL (8.4-10.2); Carbon Dioxide 31 mmol/L (22-30); Chloride 105 mmol/L (98-107); Glucose 130 mg/dL (74-99); Non-African American GFR(CKD) >90 (>60 ml/min/1.73 sqM); Potassium 4.1 mmol/L (3.5-5.1); Sodium 136 mmol/L (137-145)
--- NOTE | 2021-10-30 08:49 | XR ---
EXAMINATION TYPE: XR chest 1V portable DATE OF EXAM: 10/30/2021 COMPARISON: 08/28/2022 INDICATION: Pneumonia, lung hemorrhage TECHNIQUE: Single frontal view of the chest is obtained. FINDINGS: The heart size is normal. The pulmonary vasculature is normal. There is a large consolidation to the right lung. Finding appears similar to comparison. Some perihil ar infiltrate may be on the left. IMPRESSION: 1. Stable consolidation through the right lung field. Mild left perihilar infiltrate may be present
[2021-10-30] MEDS ORDERED: DILTIAZEM ORAL 30 MG TAB PO SCH (09:00)
[2021-10-30] MEDS: FUROSEMIDE 20 MG TAB PO SCH (09:30)
[2021-10-30] MEDS: METOPROLOL TARTRATE 25 MG TAB PO SCH (09:30)
[2021-10-30] MEDS: FLECAINIDE 50 MG TAB PO SCH ×2 (09:31→21:39)
--- NOTE | 2021-10-30 10:34 | P.PN ---
Subjective Progress Note Date: 10/30/21 Principal diagnosis: Acute hypoxic respiratory failure secondary to bilateral pneumonia right more so than left. On 10/24/2021 patient seen in follow-up on selective care unit, he sitting up on the edge of the bed, breathing comfortably, he is currently down to 6 L of oxygen pulse ox is 92%, lung sounds are still positive for diffuse wheezes and rhonchi, but overall patient's is feeling better, oxygenation has improved although the chest x-ray still showing persistent areas of infiltrate with chronic parenchymal changes with confluent increased right mid to lower lung [place] silhouetting the right heart border and hemidiaphragm and scattered left- sided more central opacities. Patient has completed a course of cefepime, remains on vancomycin, so far there is been no growth on the blood and sputum cultures. He also continues on IV steroids with Solu-Medrol gram every 8 hours, he is on daily dose of Lasix, cough medicine, nebulized bronchodilators. Denies any chest discomfort, no hemoptysis. Breathing fairly easily. Yesterday's labs have been reviewed, his white blood cell count was 18.3, hemoglobin is 14.1 and electrolytes are unremarkable, BUN is 23 creatinine 0.6 On 10/25/2021 patient seen in follow-up on selective care unit, he remains on 6 L of oxygen pulse ox is 90%, he sounds are rhonchorous, congested, however he is not able to bring up much phlegm. Yesterday he was having some phlegm production with a blood-tinged mucus. We added cefepime back on, he remains on vancomycin, CULTURE data is negative, he is afebrile, does not appear to be in any acute distress, hemodynamically his been stable. His chest x-ray findings from yesterday was still showing significant right mid and lower lung consolidation. He continues on IV steroids and breathing treatments, he is on oral dose of Lasix. Follow up procalcitonn was negative at 0.03. His creatinine was 0.5 on yesterday's labs, Vanco trough was 15.3. On October 26, 2021 patient seen in follow-up on selective care unit, he still feels short of breath, his cough is congested but nonproductive. He is on 6 L of oxygen his pulse ox is 90-93%, lung sounds are diminished, with the scattered wheezes and rhonchi, patient continues on a combination of cefepime and vancomycin he has been slow to improve, his follow-up chest x-ray today shows stable right mid and lower lung opacity. Denies chest pain or hemoptysis, does have exertional dyspnea, patient continues on IV steroids with Solu-Medrol 60 mg every 6 hours, antibiotics as mentioned above, all his culture data has been negative. His been afebrile, hemodynamically he has been stable. His Eliquis has been on hold since yesterday and we discussed bronchoscopy with BAL and possible biopsies tomorrow on , 10/27/2021 with which the patient is agreeable to proceed. On 10/27/2021 patient seen in follow-up on selective care unit, he is awake and alert, in no acute distress, he is on 6 L of oxygen pulse ox is 92-94%, his been afebrile overnight, hemodynamically has been stable, lung sounds reveal diffuse rhonchi bilaterally, patient has been having a congested cough, at times his been bringing up some dark-colored blood-tinged sputum. But most of the time his cough has been nonproductive, he remains on a combination of cefepime and vancomycin, his culture data remains negative thus far. His Eliquis is on hold, patient is in sinus mechanism with a controlled rate, yesterday his chest x-ray did not show significant improvement in appearance of his right lung pneumonia with addition of infiltration in the left upper lobe. he is scheduled for bronchoscopy with BAL and possible biopsies today at 12:30, his been nothing by mouth after midnight. On 10/28/2021, patient was evaluated today in the ICU, he underwent a bronchoscopy, bronchoalveolar lavage and transbronchial biopsy yesterday, initial findings on the bronchoscopy showed significant amount of old blood in the airway especially in the right mainstem bronchus and left mainstem bronchus, and these were lavaged. And suctioned with difficulty but nonetheless it was all cleared and I was able to visualize basically clear airways without any ac tive bleeding. Then patient underwent transbronchial biopsies and lavage of the right middle lobe and right lower lobe, this was done under fluoroscopy guidance. There was evidence of postoperative bleeding, required another look down the airways, and the bleeding was felt to be not significant however I did apply some epinephrine in the right lower lobe lateral segment where the biopsies were taken mostly. And there was very minimal oozing of blood. However considering the patient was desaturating and required to be on relatively high FiO2, I chose not to extubate him yesterday, and I kept him on mechanical ventilation sedated until this morning. This morning, I took the patient off sedation, and gave the patient a very short trial of weaning on pressure support of 10 and CPAP. And I was at bedside during this period patient tolerated the weaning process quite nicely, then I proceeded to extubating the patient to BiPAP which I will transition to nasal cannula as he tolerates it. In the meantime we'll advance his diet postextubation. Patient was noted to be quite bradycardic yesterday, and some of his cardiac medications for atrial fibrillation remain on hold at present. Patient has sinus bradycardia currently rate in the 50s. Chest x-ray continues to show bilateral infiltrates, but chest x-ray today is improved compared to chest x-ray yesterday post bronchoscopy and biopsy. His CBC is relatively unremarkable. Hemoglobin is 12.3. INR is 1.3. ABG on 60% showed a pO2 of 70 pCO2 46 patient of 7.40 and this was on assist control rate of 20, volume is 500 FiO2 60% and PEEP of 8 Reevaluated today on 10/29/2021, patient remains in the ICU, however he has demonstrated a significant improvement over the last 24 hours. Feeling better, he is on 6 L high flow nasal cannula, not using BiPAP, patient is experiencing intermittent episodes of blood-tinged sputum hence I'm keeping his anticoagulations therapy on hold, his heart rate is normal, he is in sinus rhythm, I am planning to discontinue his amiodarone altogether, but I will place the patient back on his beta blockers metoprolol 50 mg by mouth twice a day. Again considering the patient had chronic history of hemoptysis, I prefer not to place the patient back on any anticoagulation therapy not to mention the patient is presently in normal sinus rhythm. WBC count today is 19.6 hemoglobin 13.4. Electrolytes are normal renal profile is normal. Remains on antibiotics, and we will continue until we get some answer from the cultures from the BAL and get the results of the transbronchial biopsy done Reevaluated today on 10/30/2021, patient remains in the ICU, however he is an overflow, remains on 6 L high flow nasal cannula, O2 saturation is marginal. Patient denies any shortness of breath, he has no more episodes of hemoptysis upon coughing. Chest x-ray is basically about the same. Cultures from the BAL are negative so far. However the patient had organizing pneumonia noted on his transbronchial biopsies. Patient is already on relatively high-dose of Solu- Medrol, and I am keeping him off amiodarone, keeping him on cefepime but discontinuing his vancomycin. He is on multiple medications for his atrial fibrillation with RVR, however will continue to hold Eliquis and we'll continue to hold amiodarone. Patient is on flecainide, metoprolol, and at one point he was on Cardizem. Rate seems to be fairly well controlled on flecainide and metoprolol. WBC count today is 20.3 hemoglobin is 14.2 electrolytes are normal renal profile is normal, transbronchial biopsy report was noted. No evidence of malignancy, there is evidence of organizing pneumonia Objective - Vital Signs Vital signs: Vital Signs Temp 98.4 F 10/30/21 08:00 Pulse 101 H 10/30/21 09:00 Resp 18 10/30/21 09:00 BP 144/88 10/30/21 09:00 Pulse Ox 90 L 10/30/21 09:00 Intake & Output 10/29/21 10/30/21 10/30/21 18:59 06:59 18:59 Intake Total 1450 40 Output Total 3005 1100 350 Balance -1555 -1060 -350 Weight 126 kg Intake: Intake, IV Titration 350 40 Amount Sodium Chloride 0.9% 1, 350 40 000 ml @ 75 mls/hr IV . [id number] [facility] Rx#:[id number] Oral 1100 Output: Urine 3005 1100 350 Other: Voiding Method Indwelling Catheter Indwelling Catheter - Exam GENERAL EXAM: Revealed a 76-year-old white male on 6 lit nasal cannula, in no distress. HEAD: Normocephalic/atraumatic. HEENT: PERRLA, EOMI, nonicteric, no neck masses, moist mucous membranes. CHEST: No chest wall deformity. Symmetrical expansion. LUNGS: Crackles at the right base. No rhonchi and no wheezes. CVS: Regular rate and rhythm, normal S1 and S2, no gallops, no murmurs, no rubs ABDOMEN: Soft, nontender. No hepatosplenomegaly, normal bowel sounds, no guarding or rigidity. EXTREMITIES: No clubbing, no edema, no cyanosis, 2+ pulses and upper and lower extremities. MUSCULOSKELETAL: Muscle strength and tone normal. CENTRAL NERVOUS SYSTEM: Alert and oriented 3 no gross focal deficit. Psychiatric: Normal mood affect and normal mental status examination. - Labs CBC & Chem 7: 10/30/21 07:20 10/30/21 07:20 Labs: Abnormal Lab Results - Last 24 Hours (Table) 10/29/21 10/29/21 10/30/21 Range/Units 11:24 20:04 07:00 WBC (3.8-10.6) k/uL MCV (80.0-100.0) fL Neutrophils # (1.3-7.7) k/uL Lymphocytes # (1.0-4.8) k/uL Sodium (137-145) mmol/L Carbon Dioxide (22-30) mmol/L BUN (9-20) mg/dL Creatinine (0.66-1.25) mg/dL Glucose (74-99) mg/dL POC Glucose (mg/dL) 160 H 126 H 111 H (75-99) mg/dL Calcium (8.4-10.2) mg/dL 10/30/21 10/30/21 Range/Units 07:20 07:20 WBC 20.3 H (3.8-10.6) k/uL MCV 101.7 H (80.0-100.0) fL Neutrophils # 19.2 H (1.3-7.7) k/uL Lymphocytes # 0.4 L (1.0-4.8) k/uL Sodium 136 L (137-145) mmol/L Carbon Dioxide 31 H (22-30) mmol/L BUN 22 H (9-20) mg/dL Creatinine 0.54 L (0.66-1.25) mg/dL Glucose 130 H (74-99) mg/dL POC Glucose (mg/dL) (75-99) mg/dL Calcium 7.9 L (8.4-10.2) mg/dL Microbiology - Last 24 Hours (Table) 10/27/21 13:29 Gram Stain - Final Bronchial Washings - Right Bronchial Washings Culture - Final Teri albicans Assessment and Plan Assessment: Impression: Acute hypoxic respiratory failure secondary to bilateral pneumonia, exact etiology is not clear, patient is status post bronchoscopy and transbronchial biopsy with postoperative minimal bleeding, expected, and desaturation requiring keeping the patient on mechanical ventilation till 10/28/2021 were and the patient was extubated uneventfully 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 Status post bronchoscopy and transbronchial biopsy of the right lower lobe and right middle lobe as well as lavage of both. Recommendation: Continue antibiotics. However will discontinue vancomycin and continue cefepime. Continue IV Solu-Medrol. Continue oxygen and titrate accordingly Continue bronchodilators. Continue to hold anticoagulation therapy patient is now in sinus rhythm. Continue to hold amiodarone. Resume beta blockers, continue flecainide. Transfer patient to the cardiac floor today. Once a bed is available. We'll continue to follow Time with Patient: Less than 30
[2021-10-30] MEDS ORDERED: VANCOMYCIN TROUGH DUE 1 EACH MISC MISCELLANE ONE (11:00)
[2021-10-30] MEDS ORDERED: METOPROLOL TARTRATE 25 MG TAB PO STA (11:41)
--- NOTE | 2021-10-30 11:45 | P.PN ---
Subjective This is a 76-year-old gentleman with a past medical history significant for hypertension and dyslipidemia and sleep apnea and also chronic obstructive pulmonary disease, presented to the emergency department complaining of shortness of breath. We consulted to see the patient for further evaluation of abnormal cardiac enzymes and elevated troponin. The patient states that for the last few days he has not been feeding well. He has been experiencing increasing in the temperature associated with cough productive of sputum. Beside that he was experiencing increasing in the shortness of breath but no symptoms of chest pain or chest discomfort and no dizziness or lightheadedness or any feeling of heart racing or fluttering or presyncope or syncope. In the ER the patient was found to be hypoxic with oxygen saturation of 75% and subsequently he was placed on BiPAP with improvement in his oxygenation. Also he presented to the emergency department he was in atrial fibrillation with RVR and subsequently converted to normal sinus mechanism after he was started on Cardizem IV. Currently he is in sinus rhythm was sinus bradycardia. He still on Cardizem IV. He is also on heparin IV. The patient underwent a workup including EKG as desc ribed earlier showing A. fib with diffuse nonspecific ST and T wave abnormalities. No EKG after the patient was converted to normal sinus mechanism. Also the troponin came in to be elevated. The chest x-ray showed findings consistent with a pneumonia. He underwent a computed tomography scan of the chest which showed multiple findings including no pulmonary embolism, bilateral hilar adenopathy, bilateral infiltrate, and also small to moderate pericardial effusion, heart failure. The patient has no history of coronary artery disease or congestive heart failure or any cardiac arrhythmia and never seen any building construction engineer in the past. When he was seen and examined he was in bilateral expiratory wheezing with regular heart sounds and states bilateral lower extremities edema 10/15/21 Echocardiogram revealed an EF between 50 and 55% with mild mitral and tricuspid regurgitation, mild aortic valve sclerosis, and moderately enlarged right ventricle with left ventricular hypertrophy. 10/25/2021 Patient examined this morning. Patient is sitting up in bed. He denies chest pain or pressure. He reports improvement in his shortness of breath, however, continues to have difficulty bringing up sputum. He denies any further bleeding in his stool. Patient's blood pressure improved with BP 148/63 and this morning with a BP 187/90 prior to his medications, we will monitor patient's BP trend . Telemetry reviewed, patient maintaining sinus mechanism. Meds: amiodarone 200 mg twice a day (started on 10/23/21), Eliquis 5 mg twice a day, aspirin 81 mg daily, atorvastatin 80 mg nightly, Cardizem 120 mg daily, Lasix 20 mg daily, lisinopril 10 mg twice a day, metoprolol titrate 50 mg 3 times a day 10/27 Patient seen and examined. Undewent bronch with BAL today. After bronch while on vent he has been bradycardic with HR's in the 40's and in and out of afib with conversion pauses up to 4 seconds. Therefore amio, metoprolol and Cardizem have been held. Currently HR's at 40 with sinus rhythm without any efffect on BP. 10/28 Patient seen and examined. Patient underwent bronchoscopy with BAL yesterday with some concern of hemoptysis additionally. No further hemoptysis however NG tube does have some coffee-ground appearing fluid. Continues to be in sinus rhythm with sinus bradycardia currently 43 bpm. He remained sedated however not much change when he is woken up. Hemodynamically he appears stable. Blood pressure including lisinopril has been held and all negative chronotropic have been held. Hemoglobin stable at 12.3. 10/29 Patient seen and examined. He was extubated. Patient has been having some coughing up what he describes as clots and anticoagulation has been on hold. Amiodarone also has done discontinued secondary to concern of amiodarone-induced lung injury. Heart rates in the 110-120 range and patient was placed back on metoprolol however when goes in the sinus heart rates in the 60 range. 10/30 Patient seen and examined. Patient metoprolol was increased from 50 mg to 75 mg yesterday and somewhat better controlled A. fib when he is in A. fib. Heart rates are in the 100-110 range when in A. fib. He has gone in and out of A. fib for a few hours and then a few hours in sinus rhythm. He was stopped on amiodarone secondary to concern of lung toxicity and therefore was started on flecainide for rhythm control. PHYSICAL EXAM: VITAL SIGNS: Reviewed. GENERAL: Well-developed in no acute distress. Intubated NECK: Supple. No JVD or thyromegaly LUNGS: Respirations even and unlabored. Lungs diminished with scattered rhonchi, decreased breath sounds on right HEART: Bradycardic rhythm. S1 and S2 heard. EXTREMITIES: Normal range of motion. No clubbing or cyanosis. Peripheral pulses intact. 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 Patient still going in and out of atrial fibrillation and sinus rhythm. When in A. fib heart rates usually 100-110s and when in sinus rhythm heart rates in the 60s. We will again increase metoprolol from 75-100 mg twice a day and monitor response. He does have bradycardia however when in sinus he states he has been asymptomatic with heart rates in the low 50s. If he truly has tachybradycardia syndrome a pacemaker may be required however would attempt aggressive rhythm control. Continue with flecainide for now with possible ablation outpatient. Avoid amiodarone for now given pulmonary concern of lung toxicity per pulmonary. Objective - Vital Signs Vital signs: Vital Signs Temp 98.4 F 10/30/21 08:00 Pulse 55 L 10/30/21 11:00 Resp 13 10/30/21 11:00 BP 115/59 10/30/21 11:00 Pulse Ox 92 L 10/30/21 11:00 Intake & Output 10/29/21 10/30/21 10/30/21 18:59 06:59 18:59 Intake Total 1450 40 Output Total 3005 1100 350 Balance -1555 -1060 -350 Weight 126 kg Intake: Intake, IV Titration 350 40 Amount Sodium Chloride 0.9% 1, 350 40 000 ml @ 75 mls/hr IV . [id number] [facility] Rx#:[id number] Oral 1100 Output: Urine 3005 1100 350 Other: Voiding Method Indwelling Catheter Indwelling Catheter Indwelling Catheter - Labs CBC & Chem 7: 10/30/21 07:20 10/30/21 07:20 Labs: Abnormal Lab Results - Last 24 Hours (Table) 10/29/21 10/30/21 10/30/21 Range/Units 20:04 07:00 07:20 WBC 20.3 H (3.8-10.6) k/uL MCV 101.7 H (80.0-100.0) fL Neutrophils # 19.2 H (1.3-7.7) k/uL Lymphocytes # 0.4 L (1.0-4.8) k/uL Sodium (137-145) mmol/L Carbon Dioxide (22-30) mmol/L BUN (9-20) mg/dL Creatinine (0.66-1.25) mg/dL Glucose (74-99) mg/dL POC Glucose (mg/dL) 126 H 111 H (75-99) mg/dL Calcium (8.4-10.2) mg/dL 10/30/21 Range/Units 07:20 WBC (3.8-10.6) k/uL MCV (80.0-100.0) fL Neutrophils # (1.3-7.7) k/uL Lymphocytes # (1.0-4.8) k/uL Sodium 136 L (137-145) mmol/L Carbon Dioxide 31 H (22-30) mmol/L BUN 22 H (9-20) mg/dL Creatinine 0.54 L (0.66-1.25) mg/dL Glucose 130 H (74-99) mg/dL POC Glucose (mg/dL) (75-99) mg/dL Calcium 7.9 L (8.4-10.2) mg/dL Microbiology - Last 24 Hours (Table) 10/27/21 13:29 Gram Stain - Final Bronchial Washings - Right Bronchial Washings Culture - Final Teri albicans
[2021-10-30] MEDS ORDERED: hydrALAZINE HCL 20 MG/ML 1 ML VIAL IVP PRN (14:13)
--- NOTE | 2021-10-30 14:15 | P.PN ---
Progress Note - Text Progress Note Date: 10/30/21 Chief Complaint: Short of breath Hospital course This is a pleasant 76-year-old patient of Dr. Sultana. Chronic stable medical conditions include hypertension, obstructive sleep apnea, DJD, obesity. Depression, Patient presented increasing shortness of breath for 1 week, wheezing. Cough fever periods Sputum Production. Decrease Appetite Tired Rundown. Symptoms Became Progressively Worse. Found to Pulse Ox of 75% in the ER. Put on a BiPAP. Antibiotics. Bronchodilators. Admitted with bilateral pneumonia right greater than left, atrial fibrillation rapid ventricular rate, sepsis, COPD exacerbation. Started on IV cefepime, bronchodilators, IV steroids, IV heparin, IV Cardizem drip. Patient requiring BiPAP. Patient was changed over from IV heparin to eliquis. Beta blockers added. October 17: Breathing better. Decreased sputum production. On 12 L high flow nasal cannula. Had about half his breakfast. Not much appetite for lunch. Requested the patient sit up in a chair. Tired. Patient has been in sinus rhythm. October 18: Remains tired, short of breath. 12 L nasal cannula. Eating some. Vancomycin added by pulmonary. October 19: Tired. Short of breath. Remains on high flow nasal cannula. Intermittent BiPAP. Oral intake very well. Cough. I did today atrial fibrillation with rapid ventricular rate. Lopressor increased to 50 mg 3 times a day by cardiology. October 20: Feeling better. Sitting at the edge of the bed. 8 on his lunch. On 11 L nasal cannula. Patient is in sinus rhythm. Patient was started on oral amiodarone and oral Cardizem yesterday. October 21: Sitting of the edge of the bed. Eating better. 10 liters nasal cannula. Some cough. Sinus rhythm. October 22: Oral intake fair. Feels dryness of the nose and blockage of the nostril. A few nasal drops ordered. 9 L nasal cannula. Back in atrial fibrillation, rate controlled. Cough present. Nasal screen negative for MRSA. October 23: Down to 6 L of nasal cannula. Congested cough present. Currently sinus rhythm. Eating fair. October 24: Remains on 6 L nasal cannula. Oral intake fair. Cough. Sinus rhythm. Some bloodstained sputum. October 25: On 6 L nasal cannula. Some shortness of breath. Congested chest. Dr. Ball discontinued to eliquis to proceed for bronchoscopy on . Patient reminded to use incentive spirometry. October 26: Congested cough. Still bringing up slight bloody sputum. Eliquis was held yesterday. For bronchoscopy tomorrow. Oral intake fair. Remains on 6 L nasal cannula. October 27: Earlier today patient underwent bronchoscopy by Dr. Ball. Significant amount of blood also removed. Patient then taken to the ICU. On the ventilator. FiO2 80% PEEP of 8. On propofol. Sinus rhythm. October 28: ICU. Chest feels much better. Breathing better. No further hemoptysis. Was extubated earlier. On 6 L nasal cannula. Oral intake fair. Has been out of bed. October 29: ICU. Remains on 6 L nasal cannula. No BiPAP. Small amount of hemoptysis. Remains off anticoagulation. Eating better. In and out of sinus rhythm. October 30: ICU. Oxygen up to 9 L. Some shortness of breath. Patient has been in and out of sinus rhythm. Remains off anticoagulation. Did talk to the patient and . Have him sit up more. Use incentive spirometry. Eating well. Vancomycin discontinued by pulmonary today. Amiodarone discontinued. Increase Lopressor 100 mg twice a day Active Medications Acetaminophen (Acetaminophen Tab 325 Mg Tab) 650 mg PO Q6HR PRN PRN Reason: Mild Pain or Fever > 100.5 Albuterol/Ipratropium (Ipratropium-Albuterol 3 Ml Neb) 3 ml INHALATION RT-Q4H PRN PRN Reason: Shortness Of Breath Or Wheezing Last Admin: 10/17/21 11:28 Dose: 3 ml Documented by: Albuterol/Ipratropium (Ipratropium-Albuterol 3 Ml Neb) 3 ml INHALATION RT-QID [facility] Last Admin: 10/30/21 12:44 Dose: 3 ml Documented by: Atorvastatin Calcium (Atorvastatin 80 Mg Tab) 80 mg PO HS [facility] Last Admin: 10/29/21 19:59 Dose: 80 mg Documented by: Budesonide (Budesonide 1 Mg/2 Ml Nebu) 1 mg INHALATION RT-BID [facility] Last Admin: 10/30/21 08:11 Dose: 1 mg Documented by: Flecainide Acetate (Flecainide 50 Mg Tab) 50 mg PO Q12HR [facility] Last Admin: 10/30/21 09:31 Dose: 50 mg Documented by: Formoterol Fumarate (Formoterol Fumarate 20 Mcg/2 Ml Nebu) 20 mcg INHALATION RT-BID [facility] Last Admin: 10/30/21 08:11 Dose: 20 mcg Documented by: Furosemide (Furosemide 20 Mg Tab) 20 mg PO DAILY [facility] Last Admin: 10/30/21 09:30 Dose: 20 mg Documented by: Cefepime HCl 2 gm/ Sodium (Chloride) 100 mls @ 25 mls/hr IVPB Q8H [facility] Last Admin: 10/30/21 09:31 Dose: 25 mls/hr Documented by: Sodium Chloride (Saline 0.9%) 500 mls @ 20 mls/hr IV .Q24H [facility] Last Admin: 10/29/21 09:30 Dose: 20 mls/hr Documented by: Insulin Aspart (Insulin Aspart (Novolog) 100 Unit/Ml Vial) 0 unit SQ ACHS [facility]; Protocol Last Admin: 10/30/21 12:36 Dose: Not Given Documented by: Methylprednisolone Sodium Succinate (Methylprednisolone Sod Succi 125 Mg/2 Ml Vial) 60 mg IV Q6HR [facility] Last Admin: 10/30/21 12:35 Dose: 60 mg Documented by: Metoprolol Tartrate (Metoprolol Tartrate 50 Mg Tab) 100 mg PO BID [facility] Naloxone HCl (Naloxone 0.4 Mg/Ml 1 Ml Vial) 0.2 mg IV Q2M PRN PRN Reason: Opioid Reversal Ondansetron HCl (Ondansetron 4 Mg Tab) 4 mg PO Q4H PRN PRN Reason: Nausea And Vomiting Last Admin: 10/30/21 05:24 Dose: 4 mg Documented by: Pramipexole Dihydrochloride (Pramipexole 1 Mg Tab) 1 mg PO BID@0600,1600 [facility] Last Admin: 10/30/21 05:31 Dose: 1 mg Documented by: Sertraline HCl (Sertraline 100 Mg Tab) 100 mg PO DAILY@1600 [facility] Last Admin: 10/29/21 16:50 Dose: 100 mg Documented by: Past medical history to include: COPD, hypertension, obstructive sleep apnea, DJD, skin cancer Social history: . Smoked for 30 years stopped in 1979. Family history: Reviewed, noncontributory to presentation Physical examination: VITAL SIGNS: 98.4, 120, 12, 160/89, 90% on 8 L GENERAL: Reclining in bed, awake, some shortness of breath EYES: Pupils equal. Conjunctiva normal. NECK: JVD unable to assess; masses not palpable. HEART: First second sounds normal; no edema. LUNGS: Respiratory rate increased decreased breath sounds ABDOMEN: Soft, nontender, liver spleen not palpable, no masses palpable. PSYCH: Answering questions appropriately MUSCULOSKELETAL:No Clubbing/cyanosis;muscles-grossly intact INVESTIGATIONS, reviewed in the clinical context: October 30: White count 20.3 hemoglobin 14.2 potassium 4.1 BUN 22 creatinine 0.5 for October 29: White count 9.6 hemoglobin 13.4 potassium 3.8 creatinine 0.57 October 28: White count 12.8 hemoglobin 12.3 potassium 3.6 creatinine 0.5 to October 27: White count 14.1 hemoglobin 12.4 platelets 383 potassium 3.9 BUN 21 creatinine 0.5 October 26: Potassium 4.4 creatinine 0.61 October 24: Creatinine 0.55 October 23: WBC 18.3 hemoglobin 14.1 platelets 49 potassium 4.7 BUN 23 creatinine 0.6 October 22: Creatinine 0.58 Accu-Cheks noted. Nasal screen negative for MRSA October 21: Creatinine 0.64 October 20: White count 12.9 hemoglobin 13.2 platelets 404 potassium 4.4 creatinine 0.5 to October 2: Potassium 4.5 crit 0.5 October 18: White count 18 hemoglobin 12.5 potassium 4.3 creatinine 0.61 October 17: White count 24.6 hemoglobin 11.9 platelets 277 sodium 141 potassium 4.2 creatinine 0.67. Pro-calcitonin 0.06 Chest x-ray film personally reviewed by me-[October 16] significant right-sided infiltrates White count 25.6 hemoglobin 15.9 platelets 324 increased neutrophils d-dimer 7.48 sodium 138 potassium 4.2. 38 creatinine 1.53 lactic acid 3.8 Troponin I 2.0, 1.7, 1.2 Coronavirus [PCR]: Not detected EKG tracing personally reviewed by me-atrial fibrillation ST-T wave changes, rate 138 Chest angiogram chest: Moderate emphysema. Extensive patchy and confluent consolidation throughout the right lung. Some of the left side 2. Hilar lymphadenopathy. Chest x-ray film personally reviewed by me-extensive infiltrate on the right mid zone and some on the left side 2-D echocardiogram: EF 50-55% Assessment and plan: -Severe pneumonia predominantly right-sided gram-negative organism: Slow to respond Cefepime 2 g every 12 hour. IV vancomycin-discontinued . Bronchoscopy done October 28: Cultures pending. -Bronchoscopy reveals several blood clots that was removed. Epinephrine was used. Cultures pending -Severe sepsis from pneumonia: Better IV fluids. Antibiotics. -Paroxysmal Atrial fibrillation rapid ventricular rate on presentation. In and out of A. fib. Beta valente. [Received: IV heparin. IV Cardizem drip] Eliquis, Lopressor 100 twice a day. Amiodarone discontinued. Cardizem discontinued. Flecainide IV heparin monitoring: Discontinued Follow PTT -Acute COPD exacerbation in a prior smoker: Slow to respond DuoNeb. IV Solu-Medrol 60 mg every 6 -Acute severe hypoxic respiratory failure from pneumonia: Slow to respond Intermittent BiPAP. 6 L high flow nasal cannula -Essential hypertension Zestril 10 mg daily Lopressor 50 mg 3 times a day. Cardizem 30 mg 3 times a day -Restless leg syndrome Mirapex 1 mg twice a day -Depression Zoloft 100 mg daily Primary osteoarthritis multiple joints bilaterally Elberta 10 every 6 ICU: IV cefepime. IV vancomycin-discontinued. IV Solu-Medrol. Lopressor 100 mg twice a day. flecainide. Ankylosis sitting up in a chair and use incentive spirometry. Discussed with patient and .
[2021-10-30 16:29] LABS: Glucose,Whole Blood 179 mg/dL (75-99)
[2021-10-30] MEDS: SERTRALINE 100 MG TAB PO SCH (16:50)
[2021-10-30] MEDS: SODIUM CHLORIDE 0.9% 500 ML 500 ML IV SCH (16:51)
[2021-10-30] MEDS ORDERED: METOPROLOL TARTRATE 25 MG TAB PO SCH (21:00)
[2021-10-30] MEDS: METOPROLOL TARTRATE 50 MG TAB PO SCH (21:39)
[2021-10-30] MEDS: ATORVASTATIN 80 MG TAB PO SCH (21:39)
[2021-10-30 21:43] LABS: Glucose,Whole Blood 104 mg/dL (75-99)
[2021-10-31] MEDS: CEFEPIME 2 GM in SODIUM CHLORIDE 0.9% 100 ML IVPB SCH ×3 (03:06→17:43)
[2021-10-31] MEDS: MORPHINE SULFATE ER 15 MG TABLET PO SCH ×2 (05:36→17:40)
[2021-10-31] MEDS: methylPREDNISolone SOD SUCCI 125 MG/2 ML VIAL IV SCH ×3 (05:36→17:43)
[2021-10-31] MEDS: PRAMIPEXOLE 1 MG TAB PO SCH ×2 (05:45→17:43)
[2021-10-31 05:52] LABS: Glucose,Whole Blood 138 mg/dL (75-99)
[2021-10-31] MEDS: INSULIN ASPART (NovoLOG) 100 UNIT/ML VIAL SQ SCH ×4 (06:48→20:48)
[2021-10-31] MEDS: METOPROLOL TARTRATE 50 MG TAB PO SCH ×3 (08:10→20:48)
[2021-10-31] MEDS: FORMOTEROL FUMARATE 20 MCG/2 ML NEBU INHALATION SCH ×2 (08:36→21:03)
[2021-10-31] MEDS: IPRATROPIUM-ALBUTEROL 3 ML NEB INHALATION SCH ×4 (08:36→21:03)
[2021-10-31] MEDS: BUDESONIDE 1 MG/2 ML NEBU INHALATION SCH ×2 (08:36→21:02)
[2021-10-31] MEDS ORDERED: AMIODARONE 200 MG TAB PO SCH (09:00)
[2021-10-31] MEDS: FLECAINIDE 50 MG TAB PO SCH ×2 (09:13→20:48)
[2021-10-31] MEDS: FUROSEMIDE 20 MG TAB PO SCH (09:14)
[2021-10-31] MEDS: SODIUM CHLORIDE 0.9% 500 ML 500 ML IV SCH (09:24)
[2021-10-31 11:47] LABS: Glucose,Whole Blood 152 mg/dL (75-99)
[2021-10-31] MEDS: HYDROcodone/APAP 10-325MG 1 EACH TAB PO PRN ×3 (12:10→23:30)
[2021-10-31] MEDS ORDERED: lisinopriL 5 MG TAB PO SCH (12:45)
--- NOTE | 2021-10-31 12:47 | P.PN ---
Subjective This is a 76-year-old gentleman with a past medical history significant for hypertension and dyslipidemia and sleep apnea and also chronic obstructive pulmonary disease, presented to the emergency department complaining of shortness of breath. 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 We consulted to see the patient for further evaluation of atrial fibrillation with RVR, abnormal cardiac enzymes and elevated troponin. The patient states that for the last few days he has not been feeding well. In the ER the patient was found to be hypoxic with oxygen saturation of 75% and subsequently he was placed on BiPAP with improvement in his oxygenation. Also he presented to the emergency department he was in atrial fibrillation with RVR and subsequently converted to normal sinus mechanism after he was started on Cardizem IV. The patient underwent a workup including EKG as described earlier showing A. fib with diffuse nonspecific ST and T wave abnormalities. No EKG after the patient was converted to normal sinus mechanism. Also the troponin came in to be elevated. The chest x-ray showed findings consistent with a pneumonia. He underwent a computed tomography scan of the chest which showed multiple findings including no pulmonary embolism, bilateral hilar adenopathy, bilateral infiltrate, and also small to moderate pericardial effusion, heart failure. 10/15/21 Echocardiogram revealed an EF between 50 and 55% with mild mitral and t ricuspid regurgitation, mild aortic valve sclerosis, and moderately enlarged right ventricle with left ventricular hypertrophy. 10/27- Patient underwent Bronch with BAL. After bronch while on vent he has been bradycardic with HR's in the 40's and in and out of afib with conversion pauses up to 4 seconds. Therefore amio, metoprolol and Cardizem was held 10/28- Eliquis has been on hold due to hemoptysis 10/31/2021 Patient seen and examined. He is in no acute distress. He denies any chest pain. Denies shortness of breath or palpitations. Patient metoprolol was increased from 75 mg to 100 mg BID yesterday. Telemetry reviewed, patient in atrial flutter with HR 80s-120. He does occasionally go into sinus mechanism. No significant bradycardia at this time. He was stopped on amiodarone secondary to concern of lung toxicity and therefore was started on flecainide for rhythm control Eliquis 5 mg twice a day is on hold. Meds: atorvastatin 80 mg nightly, flecainide 50 mg twice a day, metoprolol tartrate 100 mg twice a day, Lasix 20 mg daily, PRN hydralazine PHYSICAL EXAM: VITAL SIGNS: Reviewed. GENERAL: Well-developed in no acute distress. NECK: Supple. No JVD or thyromegaly LUNGS: Respirations even and unlabored. Lungs diminished with scattered rhonchi. HEART: Regular rate and rhythm. S1 and S2 heard. EXTREMITIES: Normal range of motion. No clubbing or cyanosis. Peripheral pulses intact. Trace bilateral lower extremity edema ASSESSMENT: Bilateral pneumonia Acute COPD exacerbation Hypoxemia secondary to the above New onset paroxysmal atrial fibrillation with RVR Type II NSTEMI resulting from demand ischemia from RVR Obstructive sleep apnea PLAN: Continue metoprolol 100mg BID and Flecainide 50mg BID Continue to monitor rates Continue statin Anticoagulation continues to be on hold due to hemoptysis and hematochezia. Will resume when able. We will monitor for bleeding Continue telemetry monitoring If he truly has tachybradycardia syndrome a pacemaker may be required however would attempt aggressive rhythm control. Continue with flecainide for now with possible ablation outpatient. Avoid amiodarone for now given pulmonary concern of lung toxicity per pulmonary. Further recommendations pending patient course Nurse practitioner note has been reviewed by physician. Signing provider agrees with the documented findings, assessment, and plan of care. Objective - Vital Signs Vital signs: Vital Signs Temp 97.1 F L 10/31/21 09:00 Pulse 108 H 10/31/21 12:04 Resp 18 10/31/21 09:00 BP 183/120 10/31/21 09:00 Pulse Ox 94 L 10/31/21 09:00 Intake & Output 10/30/21 10/31/21 10/31/21 18:59 06:59 18:59 Output Total 1000 1850 1999 Balance -1000 -1850 -1999 Output: Urine 1000 1850 1999 Other: Voiding Method Indwelling Catheter Indwelling Catheter Indwelling Catheter - Labs CBC & Chem 7: 10/30/21 07:20 10/30/21 07:20 Labs: Abnormal Lab Results - Last 24 Hours (Table) 10/30/21 10/30/21 10/31/21 Range/Units 16:18 21:38 05:48 POC Glucose (mg/dL) 179 H 104 H 138 H (75-99) mg/dL 02/14/22 Range/Units 11:45 POC Glucose (mg/dL) 152 H (75-99) mg/dL Microbiology - Last 24 Hours (Table) 10/27/21 13:29 Fungal Culture - Preliminary Bronchial Washings - Right Teri albicans
[2021-10-31] MEDS ORDERED: FLUCONAZOLE 100 MG TAB PO ONE (12:58)
--- NOTE | 2021-10-31 15:05 | P.PN ---
Subjective Progress Note Date: 10/31/21 Principal diagnosis: Pneumonia, respiratory failure. On 10/28/2021, patient was evaluated today in the ICU, he underwent a bronchoscopy, bronchoalveolar lavage and transbronchial biopsy yesterday, initial findings on the bronchoscopy showed significant amount of old blood in the airway especially in the right mainstem bronchus and left mainstem bronchus, and these were lavaged. And suctioned with difficulty but nonetheless it was all cleared and I was able to visualize basically clear airways without any active bleeding. Then patient underwent transbronchial biopsies and lavage of the right middle lobe and right lower lobe, this was done under fluoroscopy guidance. There was evidence of postoperative bleeding, required another look down the airways, and the bleeding was felt to be not significant however I did apply some epinephrine in the right lower lobe lateral segment where the biopsies were taken mostly. And there was very minimal oozing of blood. However considering the patient was desaturating and required to be on relatively high FiO2, I chose not to extubate him yesterday, and I kept him on mechanical ventilation sedated until this morning. This morning, I took the patient off sedation, and gave the patient a very short trial of weaning on pressure support of 10 and CPAP. And I was at bedside during this period patient tolerated the weaning process quite nicely, then I proceeded to extubating the patient to BiPAP which I will transition to nasal cannula as he tolerates it. In the meantime we'll advance his diet postextubation. Patient was noted to be quite bradycardic yesterday, and some of his cardiac medications for atrial fibrillation remain on hold at present. Patient has sinus bradycardia currently rate in the 50s. Chest x-ray continues to show bilateral infiltrates, but chest x-ray today is improved compared to chest x-ray yesterday post bronchoscopy and biopsy. His CBC is relatively unremarkable. Hemoglobin is 12.3. INR is 1.3. ABG on 60% showed a pO2 of 70 pCO2 46 patient of 7.40 and this was on assist control rate of 20, volume is 500 FiO2 60% and PEEP of 8 Reevaluated today on 10/29/2021, patient remains in the ICU, however he has demonstrated a significant improvement over the last 24 hours. Feeling better, he is on 6 L high flow nasal cannula, not using BiPAP, patient is experiencing intermittent episodes of blood-tinged sputum hence I'm keeping his anticoagulations therapy on hold, his heart rate is normal, he is in sinus rhythm, I am planning to discontinue his amiodarone altogether, but I will place the patient back on his beta blockers metoprolol 50 mg by mouth twice a day. Again considering the patient had chronic history of hemoptysis, I prefer not to place the patient back on any anticoagulation therapy not to mention the patient is presently in normal sinus rhythm. WBC count today is 19.6 hemoglobin 13.4. Electrolytes are normal renal profile is normal. Remains on antibiotics, and we will continue until we get some answer from the cultures from the BAL and get the results of the transbronchial biopsy done Reevaluated today on 10/30/2021, patient remains in the ICU, however he is an overflow, remains on 6 L high flow nasal cannula, O2 saturation is marginal. Patient denies any shortness of breath, he has no more episodes of hemoptysis upon coughing. Chest x-ray is basically about the same. Cultures from the BAL are negative so far. However the patient had organizing pneumonia noted on his transbronchial biopsies. Patient is already on relatively high-dose of Solu- Medrol, and I am keeping him off amiodarone, keeping him on cefepime but discontinuing his vancomycin. He is on multiple medications for his atrial fibrillation with RVR, however will continue to hold Eliquis and we'll continue to hold amiodarone. Patient is on flecainide, metoprolol, and at one point he was on Cardizem. Rate seems to be fairly well controlled on flecainide and metoprolol. WBC count today is 20.3 hemoglobin is 14.2 electrolytes are normal renal profile is normal, transbronchial biopsy report was noted. No evidence of malignancy, there is evidence of organizing pneumonia Progress note dated 10/31/2021. The patient is again seen in room 366. Currently, he's on 7 L high flow nasal O2, with saturations in the low 90s. Clinically, the patient's feeling much better. The patient was in the intensive care unit yesterday, and was transferred out yesterday. His complaints include primarily shortness of breath. The patient apparently underwent bronchoscopy, and had biopsy showing organizing pneumonia. Subsequent to the biopsies, apparently he had some significant bleeding. Currently that has settled down. No new laboratory data today. Chest x-ray from October 30 shows consolidation throughout the right lung field, which is unchanged. The patient remains on budesonide, cefepime, formoterol, DuoNeb nebs, Solu-Medrol, and vancomycin. Objective - Vital Signs Vital signs: Vital Signs Temp 97.1 F L 10/31/21 09:00 Pulse 108 H 10/31/21 12:04 Resp 18 10/31/21 11:40 BP 128/58 10/31/21 11:40 Pulse Ox 94 L 10/31/21 11:40 Intake & Output 10/30/21 10/31/21 10/31/21 18:59 06:59 18:59 Output Total 1000 1850 2350 Balance -1000 -1850 -2350 Output: Urine 1000 1850 2350 Other: Voiding Method Indwelling Catheter Indwelling Catheter Indwelling Catheter - Exam No acute distress, oriented 3. Currently on 7 L high flow nasal O2. Saturations are 94%. HEENT examination is grossly unremarkable. Neck supple. Full range of motion. No adenopathy thyromegaly or neck vein distention. Cardiovascular examination reveals regular rhythm rate. S1-S2 normal. No S3 or S4. No discernible murmur noted. Heart sounds are distant. Heart rate 104 bpm. Lungs reveal bilateral rhonchi, right side worse than left side. No wheezes or crackles. Saturations are 94% on 7 L. Abdomen soft bowel sounds are heard. No masses or tenderness. Extremities are intact. No cyanosis clubbing or edema. Skin is without rash or lesion. Neurologic examination is brief but nonfocal. The patient does have a fine tremor of the upper extremities and hands. - Labs CBC & Chem 7: 10/30/21 07:20 10/30/21 07:20 Labs: Abnormal Lab Results - Last 24 Hours (Table) 10/30/21 10/30/21 10/31/21 Range/Units 16:18 21:38 05:48 POC Glucose (mg/dL) 179 H 104 H 138 H (75-99) mg/dL 10/31/21 Range/Units 11:45 POC Glucose (mg/dL) 152 H (75-99) mg/dL Microbiology - Last 24 Hours (Table) 10/27/21 13:29 Fungal Culture - Preliminary Bronchial Washings - Right Teri albicans Assessment and Plan Assessment: Hypoxemic respiratory failure, multifactorial, in part related to bilateral pneumonia, right greater than left, as well as atrial fibrillation with RVR. Status post bronchoscopy and biopsy, showing organizing pneumonia, with subsequent extubation on 10/28/2021. Elevated troponins, which may reflect non-ST segment elevation myocardial infarctions, versus supply/demand mismatch. Mild/moderate acute kidney injury. History of COPD. History of hypertension. History of obstructive sleep apnea syndrome. History of skin cancer. Prior history of pneumonia. Prior history of tobacco use. Plan: Plan dated 10/14/2021. The patient is started on azithromycin and Rocephin. Corticosteroids are discontinued. Symbicort is added. The patient is on breathing treatments, in addition, the patient is on IV heparin and Cardizem, as per cardiology. We will continue to follow and make recommendations where appropriate. Prognosis is guarded. Additional recommendations and suggestions are forthcoming. Plan dated 10/31/2021. Currently, the patient has been weaned down to 7 L nasal cannula. Saturations are in the 92-94% range. The patient remains on cefepime and vancomycin. The patient's also receiving Solu-Medrol, and breathing. Apparently the transbronchial biopsy showed evidence of organizing pneumonia. I was unable to pull up the report. Additional recommendations and suggestions are forthcoming. Prognosis is guarded. We will continue to follow make recommendations where appropriate. Time with Patient: Less than 30
[2021-10-31 15:20] VITALS: BMI 35.6
[2021-10-31 16:17] LABS: Glucose,Whole Blood 126 mg/dL (75-99)
[2021-10-31] MEDS: LISINOPRIL-HCTZ 10-12.5 MG 1 EACH TAB PO SCH ×2 (17:42→21:24)
[2021-10-31] MEDS: SERTRALINE 100 MG TAB PO SCH (17:42)
--- NOTE | 2021-10-31 20:12 | P.PN ---
Progress Note - Text Progress Note Date: 10/31/21 Chief Complaint: Short of breath Hospital course This is a pleasant 76-year-old patient of Dr. Sultana. Chronic stable medical conditions include hypertension, obstructive sleep apnea, DJD, obesity. Depression, Patient presented increasing shortness of breath for 1 week, wheezing. Cough fever periods Sputum Production. Decrease Appetite Tired Rundown. Symptoms Became Progressively Worse. Found to Pulse Ox of 75% in the ER. Put on a BiPAP. Antibiotics. Bronchodilators. Admitted with bilateral pneumonia right greater than left, atrial fibrillation rapid ventricular rate, sepsis, COPD exacerbation. Started on IV cefepime, bronchodilators, IV steroids, IV heparin, IV Cardizem drip. Patient requiring BiPAP. Patient was changed over from IV heparin to eliquis. Beta blockers added. October 17: Breathing better. Decreased sputum production. On 12 L high flow nasal cannula. Had about half his breakfast. Not much appetite for lunch. Requested the patient sit up in a chair. Tired. Patient has been in sinus rhythm. October 18: Remains tired, short of breath. 12 L nasal cannula. Eating some. Vancomycin added by pulmonary. October 19: Tired. Short of breath. Remains on high flow nasal cannula. Intermittent BiPAP. Oral intake very well. Cough. I did today atrial fibrillation with rapid ventricular rate. Lopressor increased to 50 mg 3 times a day by cardiology. October 20: Feeling better. Sitting at the edge of the bed. 8 on his lunch. On 11 L nasal cannula. Patient is in sinus rhythm. Patient was started on oral amiodarone and oral Cardizem yesterday. October 21: Sitting of the edge of the bed. Eating better. 10 liters nasal cannula. Some cough. Sinus rhythm. October 22: Oral intake fair. Feels dryness of the nose and blockage of the nostril. A few nasal drops ordered. 9 L nasal cannula. Back in atrial fibrillation, rate controlled. Cough present. Nasal screen negative for MRSA. October 23: Down to 6 L of nasal cannula. Congested cough present. Currently sinus rhythm. Eating fair. October 24: Remains on 6 L nasal cannula. Oral intake fair. Cough. Sinus rhythm. Some bloodstained sputum. October 25: On 6 L nasal cannula. Some shortness of breath. Congested chest. Dr. Ball discontinued to eliquis to proceed for bronchoscopy on . Patient reminded to use incentive spirometry. October 26: Congested cough. Still bringing up slight bloody sputum. Eliquis was held yesterday. For bronchoscopy tomorrow. Oral intake fair. Remains on 6 L nasal cannula. October 27: Earlier today patient underwent bronchoscopy by Dr. Ball. Significant amount of blood also removed. Patient then taken to the ICU. On the ventilator. FiO2 80% PEEP of 8. On propofol. Sinus rhythm. October 28: ICU. Chest feels much better. Breathing better. No further hemoptysis. Was extubated earlier. On 6 L nasal cannula. Oral intake fair. Has been out of bed. October 29: ICU. Remains on 6 L nasal cannula. No BiPAP. Small amount of hemoptysis. Remains off anticoagulation. Eating better. In and out of sinus rhythm. October 30: ICU. Oxygen up to 9 L. Some shortness of breath. Patient has been in and out of sinus rhythm. Remains off anticoagulation. Did talk to the patient and . Have him sit up more. Use incentive spirometry. Eating well. Vancomycin discontinued by pulmonary today. Amiodarone discontinued. Increase Lopressor 100 mg twice a day October 31: On 7 L nasal cannula. Some shortness of breath. Paroxysmal A. fib. Oral thrush. Diflucan started. On flecainide, Lopressor. Cutback Solu- Medrol to 40 mg every 8. Pathology: Features of organizing pneumonia. Negative for cytology. Active Medications Acetaminophen (Acetaminophen Tab 325 Mg Tab) 650 mg PO Q6HR PRN PRN Reason: Mild Pain or Fever > 100.5 Last Admin: 10/31/21 04:08 Dose: 650 mg Documented by: Hydrocodone Bitart/Acetaminophen (Hydrocodone/Apap 10-325mg 1 Each Tab) 1 each PO Q6HR PRN PRN Reason: Pain Last Admin: 10/31/21 17:41 Dose: 1 each Documented by: Albuterol/Ipratropium (Ipratropium-Albuterol 3 Ml Neb) 3 ml INHALATION RT-Q4H PRN PRN Reason: Shortness Of Breath Or Wheezing Last Admin: 10/17/21 11:28 Dose: 3 ml Documented by: Albuterol/Ipratropium (Ipratropium-Albuterol 3 Ml Neb) 3 ml INHALATION RT-QID BALTAZAR Last Admin: 10/31/21 15:59 Dose: 3 ml Documented by: Atorvastatin Calcium (Atorvastatin 80 Mg Tab) 80 mg PO HS [facility] Last Admin: 10/30/21 21:39 Dose: 80 mg Documented by: Budesonide (Budesonide 1 Mg/2 Ml Nebu) 1 mg INHALATION RT-BID [facility] Last Admin: 10/31/21 08:36 Dose: 1 mg Documented by: Flecainide Acetate (Flecainide 50 Mg Tab) 50 mg PO Q12HR [facility] Last Admin: 10/31/21 09:13 Dose: 50 mg Documented by: Fluconazole (Fluconazole 150 Mg Tab) 150 mg PO DAILY [facility] Formoterol Fumarate (Formoterol Fumarate 20 Mcg/2 Ml Nebu) 20 mcg INHALATION RT-BID [facility] Last Admin: 10/31/21 08:36 Dose: 20 mcg Documented by: Furosemide (Furosemide 20 Mg Tab) 20 mg PO DAILY [facility] Last Admin: 10/31/21 09:14 Dose: 20 mg Documented by: Lisinopril/HCTZ (Lisinopril-Hctz 10-12.5 Mg 1 Each Tab) 1 each PO BID [facility] Last Admin: 10/31/21 17:42 Dose: 1 each Documented by: Hydralazine HCl (Hydralazine Hcl 20 Mg/Ml 1 Ml Vial) 10 mg IVP Q6HR PRN PRN Reason: Blood Pressure - High Last Admin: 10/31/21 09:14 Dose: 10 mg Documented by: Sodium Chloride (Saline 0.9%) 500 mls @ 20 mls/hr IV .Q24H [facility] Last Admin: 10/31/21 09:24 Dose: 20 mls/hr Documented by: Insulin Aspart (Insulin Aspart (Novolog) 100 Unit/Ml Vial) 0 unit SQ ACHS [facility]; Protocol Last Admin: 10/31/21 17:32 Dose: Not Given Documented by: Methylprednisolone Sodium Succinate (Methylprednisolone Sod Succi 40 Mg/Ml 1 Ml Vial) 40 mg IV Q8HR [facility] Metoprolol Tartrate (Metoprolol Tartrate 50 Mg Tab) 100 mg PO BID [facility] Last Admin: 10/31/21 09:13 Dose: 100 mg Documented by: Morphine Sulfate (Morphine Sulfate Er 15 Mg Tablet) 15 mg PO BID@0600,1600 [facility]; Protocol Last Admin: 10/31/21 17:40 Dose: 15 mg Documented by: Naloxone HCl (Naloxone 0.4 Mg/Ml 1 Ml Vial) 0.2 mg IV Q2M PRN PRN Reason: Opioid Reversal Ondansetron HCl (Ondansetron 4 Mg Tab) 4 mg PO Q4H PRN PRN Reason: Nausea And Vomiting Last Admin: 10/30/21 05:24 Dose: 4 mg Documented by: Pramipexole Dihydrochloride (Pramipexole 1 Mg Tab) 1 mg PO BID@0600,1600 [facility] Last Admin: 10/31/21 17:43 Dose: 1 mg Documented by: Sertraline HCl (Sertraline 100 Mg Tab) 100 mg PO DAILY@1600 [facility] Last Admin: 10/31/21 17:42 Dose: 100 mg Documented by: Past medical history to include: COPD, hypertension, obstructive sleep apnea, DJD, skin cancer Social history: . Smoked for 30 years stopped in 1979. Family history: Reviewed, noncontributory to presentation Physical examination: VITAL SIGNS: 98.3, 80, 16, 159/87, 93% on 7 L GENERAL: Reclining in bed, awake, some shortness of breath Oral cavity: Several pharyngeal white patches EYES: Pupils equal. Conjunctiva normal. NECK: JVD unable to assess; masses not palpable. HEART: First second sounds normal; no edema. LUNGS: Respiratory rate increased decreased breath sounds ABDOMEN: Soft, nontender, liver spleen not palpable, no masses palpable. PSYCH: Answering questions appropriately MUSCULOSKELETAL:No Clubbing/cyanosis;muscles-grossly intact INVESTIGATIONS, reviewed in the clinical context: Bronchial washings: Teri Albicans. Cytology: No malignant cells. Biopsy: Features of organizing pneumonia. October 30: White count 20.3 hemoglobin 14.2 potassium 4.1 BUN 22 creatinine 0.5 for October 29: White count 9.6 hemoglobin 13.4 potassium 3.8 creatinine 0.57 October 28: White count 12.8 hemoglobin 12.3 potassium 3.6 creatinine 0.5 to October 27: White count 14.1 hemoglobin 12.4 platelets 383 potassium 3.9 BUN 21 creatinine 0.5 October 9: Potassium 4.4 creatinine 0.61 October 7: Creatinine 0.55 October 6: WBC 18.3 hemoglobin 14.1 platelets 49 potassium 4.7 BUN 23 creatinine 0.6 October 5: Creatinine 0.58 Accu-Cheks noted. Nasal screen negative for MRSA October 21: Creatinine 0.64 February 3: White count 12.9 hemoglobin 13.2 platelets 404 potassium 4.4 creatinine 0.5 to October 19: Potassium 4.5 crit 0.5 October 18: White count 18 hemoglobin 12.5 potassium 4.3 creatinine 0.61 October 17: White count 24.6 hemoglobin 11.9 platelets 277 sodium 141 potassium 4.2 creatinine 0.67. Pro-calcitonin 0.06 Chest x-ray film personally reviewed by me-[October 16] significant right-sided infiltrates White count 25.6 hemoglobin 15.9 platelets 324 increased neutrophils d-dimer 7.48 sodium 138 potassium 4.2. 38 creatinine 1.53 lactic acid 3.8 Troponin I 2.0, 1.7, 1.2 Coronavirus [PCR]: Not detected EKG tracing personally reviewed by me-atrial fibrillation ST-T wave changes, rate 138 Chest angiogram chest: Moderate emphysema. Extensive patchy and confluent consolidation throughout the right lung. Some of the left side 2. Hilar lymphadenopathy. 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 Bronchoscopy done October 28: Cul tures: Teri albicans. Negative cytology. Organizing pneumonia on biopsy. -Bronchoscopy reveals several blood clots that was removed. Epinephrine was used. Cultures pending -Severe sepsis from pneumonia: Better IV fluids. Antibiotics discontinued. -Paroxysmal Atrial fibrillation rapid ventricular rate on presentation. In and out of A. fib. Beta valente. [Received: IV heparin. IV Cardizem drip] Eliquis, Lopressor 100 twice a day. Amiodarone discontinued. Cardizem discontinued. Flecainide IV heparin monitoring: Discontinued Follow PTT -Acute COPD exacerbation in a prior smoker: Slow to respond DuoNeb. IV Solu-Medrol 40 mg every 8 -Acute severe hypoxic respiratory failure from pneumonia: Slow to respond Intermittent BiPAP. 7 L high flow nasal cannula -Essential hypertension Zestril 10 mg daily Lopressor 50 mg 3 times a day. Cardizem 30 mg 3 times a day -Restless leg syndrome Mirapex 1 mg twice a day -Depression Zoloft 100 mg daily Primary osteoarthritis multiple joints bilaterally [place] 10 every 6 -Oropharyngeal candidiasis from use of steroids and antibiotics Start Diflucan IV cefepime. And vancomycin-discontinued. IV Solu-Medrol cutback to 40 mg every 8.. Lopressor, flecainide. Discussed with patient and . Diflucan added.
[2021-10-31 20:18] LABS: Glucose,Whole Blood 175 mg/dL (75-99)
[2021-10-31] MEDS: ATORVASTATIN 80 MG TAB PO SCH (20:48)
[2021-10-31] MEDS: methylPREDNISolone SOD SUCCI 40 MG/ML 1 ML VIAL IV SCH (23:30)
[2021-11-01] MEDS: MORPHINE SULFATE ER 15 MG TABLET PO SCH ×2 (05:55→16:57)
[2021-11-01] MEDS: PRAMIPEXOLE 1 MG TAB PO SCH ×2 (05:56→16:57)
[2021-11-01] MEDS: INSULIN ASPART (NovoLOG) 100 UNIT/ML VIAL SQ SCH ×4 (05:56→20:24)
[2021-11-01 06:03] LABS: Glucose,Whole Blood 130 mg/dL (75-99)
[2021-11-01] MEDS: BUDESONIDE 1 MG/2 ML NEBU INHALATION SCH ×2 (08:17→19:24)
[2021-11-01] MEDS: FORMOTEROL FUMARATE 20 MCG/2 ML NEBU INHALATION SCH ×2 (08:17→19:23)
[2021-11-01] MEDS: IPRATROPIUM-ALBUTEROL 3 ML NEB INHALATION SCH ×4 (08:17→19:23)
[2021-11-01] MEDS: METOPROLOL TARTRATE 50 MG TAB PO SCH ×2 (09:31→20:23)
[2021-11-01] MEDS: LISINOPRIL-HCTZ 10-12.5 MG 1 EACH TAB PO SCH ×2 (09:31→20:23)
[2021-11-01] MEDS: FUROSEMIDE 20 MG TAB PO SCH (09:32)
[2021-11-01] MEDS: FLECAINIDE 50 MG TAB PO SCH ×2 (09:32→20:23)
[2021-11-01] MEDS: methylPREDNISolone SOD SUCCI 40 MG/ML 1 ML VIAL IV SCH ×2 (09:32→16:58)
[2021-11-01] MEDS: FLUCONAZOLE 150 MG TAB PO SCH (09:34)
[2021-11-01] MEDS: SODIUM CHLORIDE 0.9% 500 ML 500 ML IV SCH (09:37)
[2021-11-01 11:21] LABS: Glucose,Whole Blood 109 mg/dL (75-99)
--- NOTE | 2021-11-01 11:55 | P.PN ---
Subjective Progress Note Date: 11/01/21 Principal diagnosis: Pneumonia, respiratory failure. On 10/28/2021, patient was evaluated today in the ICU, he underwent a bronchoscopy, bronchoalveolar lavage and transbronchial biopsy yesterday, initial findings on the bronchoscopy showed significant amount of old blood in the airway especially in the right mainstem bronchus and left mainstem bronchus, and these were lavaged. And suctioned with difficulty but nonetheless it was all cleared and I was able to visualize basically clear airways without any active bleeding. Then patient underwent transbronchial biopsies and lavage of the right middle lobe and right lower lobe, this was done under fluoroscopy guidance. There was evidence of postoperative bleeding, required another look down the airways, and the bleeding was felt to be not significant however I did apply some epinephrine in the right lower lobe lateral segment where the biopsies were taken mostly. And there was very minimal oozing of blood. However considering the patient was desaturating and required to be on relatively high FiO2, I chose not to extubate him yesterday, and I kept him on mechanical ventilation sedated until this morning. This morning, I took the patient off sedation, and gave the patient a very short trial of weaning on pressure support of 10 and CPAP. And I was at bedside during this period patient tolerated the weaning process quite nicely, then I proceeded to extubating the patient to BiPAP which I will transition to nasal cannula as he tolerates it. In the meantime we'll advance his diet postextubation. Patient was noted to be quite bradycardic yesterday, and some of his cardiac medications for atrial fibrillation remain on hold at present. Patient has sinus bradycardia currently rate in the 50s. Chest x-ray continues to show bilateral infiltrates, but chest x-ray today is improved compared to chest x-ray yesterday post bronchoscopy and biopsy. His CBC is relatively unremarkable. Hemoglobin is 12.3. INR is 1.3. ABG on 60% showed a pO2 of 70 pCO2 46 patient of 7.40 and this was on assist control rate of 20, volume is 500 FiO2 60% and PEEP of 8 Reevaluated today on 10/29/2021, patient remains in the ICU, however he has demonstrated a significant improvement over the last 24 hours. Feeling better, he is on 6 L high flow nasal cannula, not using BiPAP, patient is experiencing intermittent episodes of blood-tinged sputum hence I'm keeping his anticoagulations therapy on hold, his heart rate is normal, he is in sinus rhythm, I am planning to discontinue his amiodarone altogether, but I will place the patient back on his beta blockers metoprolol 50 mg by mouth twice a day. Again considering the patient had chronic history of hemoptysis, I prefer not to place the patient back on any anticoagulation therapy not to mention the patient is presently in normal sinus rhythm. WBC count today is 19.6 hemoglobin 13.4. Electrolytes are normal renal profile is normal. Remains on antibiotics, and we will continue until we get some answer from the cultures from the BAL and get the results of the transbronchial biopsy done Reevaluated today on 10/30/2021, patient remains in the ICU, however he is an overflow, remains on 6 L high flow nasal cannula, O2 saturation is marginal. Patient denies any shortness of breath, he has no more episodes of hemoptysis upon coughing. Chest x-ray is basically about the same. Cultures from the BAL are negative so far. However the patient had organizing pneumonia noted on his transbronchial biopsies. Patient is already on relatively high-dose of Solu- Medrol, and I am keeping him off amiodarone, keeping him on cefepime but discontinuing his vancomycin. He is on multiple medications for his atrial fibrillation with RVR, however will continue to hold Eliquis and we'll continue to hold amiodarone. Patient is on flecainide, metoprolol, and at one point he was on Cardizem. Rate seems to be fairly well controlled on flecainide and metoprolol. WBC count today is 20.3 hemoglobin is 14.2 electrolytes are normal renal profile is normal, transbronchial biopsy report was noted. No evidence of malignancy, there is evidence of organizing pneumonia Progress note dated 10/31/2021. The patient is again seen in room 366. Currently, he's on 7 L high flow nasal O2, with saturations in the low 90s. Clinically, the patient's feeling much better. The patient was in the intensive care unit yesterday, and was transferred out yesterday. His complaints include primarily shortness of breath. The patient apparently underwent bronchoscopy, and had biopsy showing organizing pneumonia. Subsequent to the biopsies, apparently he had some significant bleeding. Currently that has settled down. No new laboratory data today. Chest x-ray from October 30 shows consolidation throughout the right lung field, which is unchanged. The patient remains on budesonide, cefepime, formoterol, DuoNeb nebs, Solu-Medrol, and vancomycin. Progress note dated 11/01/2021. The patient is again seen in room 366. He's currently on 6 L nasal cannula. He is receiving saline at KVO. He is doing much better and feeling much better. The patient underwent bronchoscopy and biopsy showing organizing pneumonia. Subsequent to the biopsies, he had some bleeding, which is settled down. He denies any current bleeding or hemoptysis. No new laboratory data. Objective - Vital Signs Vital signs: Vital Signs Temp 96.8 F L 11/01/21 08:00 Pulse 72 11/01/21 08:38 Resp 18 11/01/21 08:00 BP 135/85 11/01/21 08:00 Pulse Ox 93 L 11/01/21 08:00 Intake & Output 10/31/21 11/01/21 11/01/21 18:59 06:59 18:59 Intake Total 118 Output Total 2750 1100 Balance -2750 -1100 118 Weight 126 kg Intake: Oral 118 Output: Urine 2750 1100 Uretheral (Graham) 350 Other: Voiding Method Indwelling Catheter Indwelling Catheter - Exam No acute distress, oriented 3. Currently on 6 L high flow nasal O2. Saturations are 93%. HEENT examination is grossly unremarkable. Neck supple. Full range of motion. No adenopathy thyromegaly or neck vein distention. Cardiovascular examination reveals regular rhythm rate. S1-S2 normal. No S3 or S4. No discernible murmur noted. Heart sounds are distant. Heart rate 72 bpm. Lungs reveal bilateral rhonchi, right side worse than left side. No wheezes or crackles. Saturations are 93% on 6 L. Abdomen soft bowel sounds are heard. No masses or tenderness. Extremities are intact. No cyanosis clubbing or edema. Skin is without rash or lesion. Neurologic examination is brief but nonfocal. The patient does have a fine tremor of the upper extremities and hands. - Labs CBC & Chem 7: 10/30/21 07:20 10/30/21 07:20 Labs: Abnormal Lab Results - Last 24 Hours (Table) 10/31/21 10/31/21 11/01/21 Range/Units 16:15 20:15 05:56 POC Glucose (mg/dL) 126 H 175 H 130 H (75-99) mg/dL 11/01/21 Range/Units 11:19 POC Glucose (mg/dL) 109 H (75-99) mg/dL Microbiology - Last 24 Hours (Table) 10/27/21 13:29 Fungal Culture - Preliminary Bronchial Washings - Right Teri albicans Assessment and Plan Assessment: Hypoxemic respiratory failure, multifactorial, in part related to bilateral pneumonia, right greater than left, as well as atrial fibrillation with RVR. Status post bronchoscopy and biopsy, showing organizing pneumonia, with s ubsequent extubation on 10/28/2021. Elevated troponins, which may reflect non-ST segment elevation myocardial infarctions, versus supply/demand mismatch. Mild/moderate acute kidney injury. History of COPD. History of hypertension. History of obstructive sleep apnea syndrome. History of skin cancer. Prior history of pneumonia. Prior history of tobacco use. Plan: Plan dated 10/14/2021. The patient is started on azithromycin and Rocephin. Corticosteroids are discontinued. Symbicort is added. The patient is on breathing treatments, in addition, the patient is on IV heparin and Cardizem, as per cardiology. We will continue to follow and make recommendations where appropriate. Prognosis is guarded. Additional recommendations and suggestions are forthcoming. Plan dated 10/31/2021. Currently, the patient has been weaned down to 7 L nasal cannula. Saturations are in the 92-94% range. The patient remains on cefepime and vancomycin. The patient's also receiving Solu-Medrol, and breathing. Apparently the transbronchial biopsy showed evidence of organizing pneumonia. I was unable to pull up the report. Additional recommendations and suggestions are forthcoming. Prognosis is guarded. We will continue to follow make recommendations where appropriate. Plan dated 11/01/2021. Currently, the patient has been weaned down to 6 L. He feels like his breathing is improved. Remains on Pulmicort, formoterol, DuoNeb, and Solu-Medrol. Thus far, all his culture data is negative. There was some Teri on the bronch. washings. Additional recommendations and suggestions are forthcoming. The patient remains on fluconazole, but vancomycin and cefepime have been discontinued. Additional recommendations and suggestions are forthcoming. Prognosis is guarded. We will continue to wean down his oxygen requirements. Time with Patient: Less than 30
[2021-11-01] MEDS: HYDROcodone/APAP 10-325MG 1 EACH TAB PO PRN (12:13)
--- NOTE | 2021-11-01 13:22 | P.PN ---
Subjective This is a 76-year-old gentleman with a past medical history significant for hypertension and dyslipidemia and sleep apnea and also chronic obstructive pulmonary disease, presented to the emergency department complaining of shortness of breath. 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 We consulted to see the patient for further evaluation of atrial fibrillation with RVR, abnormal cardiac enzymes and elevated troponin. The patient states that for the last few days he has not been feeding well. In the ER the patient was found to be hypoxic with oxygen saturation of 75% and subsequently he was placed on BiPAP with improvement in his oxygenation. Also he presented to the emergency department he was in atrial fibrillation with RVR and subsequently converted to normal sinus mechanism after he was started on Cardizem IV. The patient underwent a workup including EKG as described earlier showing A. fib with diffuse nonspecific ST and T wave abnormalities. No EKG after the patient was converted to normal sinus mechanism. Also the troponin came in to be elevated. The chest x-ray showed findings consistent with a pneumonia. He underwent a computed tomography scan of the chest which showed multiple findings including no pulmonary embolism, bilateral hilar adenopathy, bilateral infiltrate, and also small to moderate pericardial effusion, heart failure. 10/15/21 Echocardiogram revealed an EF between 50 and 55% with mild mitral and t ricuspid regurgitation, mild aortic valve sclerosis, and moderately enlarged right ventricle with left ventricular hypertrophy. 10/27- Patient underwent Bronch with BAL. After bronch while on vent he has been bradycardic with HR's in the 40's and in and out of afib with conversion pauses up to 4 seconds. Therefore amio, metoprolol and Cardizem was held 10/28- Eliquis has been on hold due to hemoptysis 11/01/2021 Patient seen and examined. He is in no acute distress. He denies any chest pain. Denies any worsening shortness of breath or palpitations. No further hemoptysis or bleeding. Telemetry reviewed, patient in atrial flutter with HR trends 80s-90s, this morni ng with HR 140s. No significant bradycardia at this time. He was stopped on amiodarone secondary to concern of lung toxicity and therefore was started on flecainide for rhythm control Eliquis 5 mg twice a day is on hold. Meds: atorvastatin 80 mg nightly, flecainide 50 mg twice a day, metoprolol tartrate 100 mg twice a day, Lasix 20 mg daily, PRN hydralazine PHYSICAL EXAM: VITAL SIGNS: Reviewed. GENERAL: Well-developed in no acute distress. NECK: Supple. No JVD or thyromegaly LUNGS: Respirations even and unlabored. Lungs diminished with scattered rhonchi. HEART: Regular rate and rhythm. S1 and S2 heard. EXTREMITIES: Normal range of motion. No clubbing or cyanosis. Peripheral pulses intact. Trace bilateral lower extremity edema ASSESSMENT: Bilateral pneumonia Acute COPD exacerbation Hypoxemia secondary to the above New onset paroxysmal atrial fibrillation with RVR Atypical atrial fluter Type II NSTEMI resulting from demand ischemia from RVR Obstructive sleep apnea PLAN: Increase metoprolol 150mg BID Continue Flecainide 50mg BID Continue to monitor rates Continue statin Anticoagulation continues to be on hold due to hemoptysis and hematochezia, which has improved. Hopefully restart Eliquis tomorrow Monitor CBC and BMP tomorrow We will monitor for bleeding We will continue to attempt aggressive rhythm control. Continue with flecainide for now with possible ablation outpatient. Avoid amiodarone for now given pulmonary concern of lung toxicity per pulmonary. Further recommendations pending patient course Nurse practitioner note has been reviewed by physician. Signing provider agrees with the documented findings, assessment, and plan of care. Objective - Vital Signs Vital signs: Vital Signs Temp 96.8 F L 11/01/21 08:00 Pulse 84 11/01/21 12:02 Resp 17 11/01/21 12:00 BP 151/90 11/01/21 12:00 Pulse Ox 95 11/01/21 12:00 Intake & Output 10/31/21 11/01/21 11/01/21 18:59 06:59 18:59 Intake Total 118 Output Total 2750 1100 Balance -2750 -1100 118 Weight 126 kg Intake: Oral 118 Output: Urine 2750 1100 Uretheral (Graham) 350 Other: Voiding Method Indwelling Catheter Indwelling Catheter - Labs CBC & Chem 7: 10/30/21 07:20 10/30/21 07:20 Labs: Abnormal Lab Results - Last 24 Hours (Table) 10/31/21 10/31/21 11/01/21 Range/Units 16:15 20:15 05:56 POC Glucose (mg/dL) 126 H 175 H 130 H (75-99) mg/dL 11/01/21 Range/Units 11:19 POC Glucose (mg/dL) 109 H (75-99) mg/dL Microbiology - Last 24 Hours (Table) 10/27/21 13:29 Fungal Culture - Preliminary Bronchial Washings - Right Teri albicans
[2021-11-01 16:38] LABS: Glucose,Whole Blood 139 mg/dL (75-99)
[2021-11-01] MEDS: SERTRALINE 100 MG TAB PO SCH (16:56)
[2021-11-01 20:03] LABS: Glucose,Whole Blood 135 mg/dL (75-99)
--- NOTE | 2021-11-01 20:13 | P.PN ---
Progress Note - Text Progress Note Date: 11/01/21 Chief Complaint: Short of breath Hospital course This is a pleasant 76-year-old patient of Dr. Sultana. Chronic stable medical conditions include hypertension, obstructive sleep apnea, DJD, obesity. Depression, Patient presented increasing shortness of breath for 1 week, wheezing. Cough fever periods Sputum Production. Decrease Appetite Tired Rundown. Symptoms Became Progressively Worse. Found to Pulse Ox of 75% in the ER. Put on a BiPAP. Antibiotics. Bronchodilators. Admitted with bilateral pneumonia right greater than left, atrial fibrillation rapid ventricular rate, sepsis, COPD exacerbation. Started on IV cefepime, bronchodilators, IV steroids, IV heparin, IV Cardizem drip. Patient requiring BiPAP. Patient was changed over from IV heparin to eliquis. Beta blockers added. October 17: Breathing better. Decreased sputum production. On 12 L high flow nasal cannula. Had about half his breakfast. Not much appetite for lunch. Requested the patient sit up in a chair. Tired. Patient has been in sinus rhythm. October 18: Remains tired, short of breath. 12 L nasal cannula. Eating some. Vancomycin added by pulmonary. October 19: Tired. Short of breath. Remains on high flow nasal cannula. Intermittent BiPAP. Oral intake very well. Cough. I did today atrial fibrillation with rapid ventricular rate. Lopressor increased to 50 mg 3 times a day by cardiology. October 20: Feeling better. Sitting at the edge of the bed. 8 on his lunch. On 11 L nasal cannula. Patient is in sinus rhythm. Patient was started on oral amiodarone and oral Cardizem yesterday. October 21: Sitting of the edge of the bed. Eating better. 10 liters nasal cannula. Some cough. Sinus rhythm. October 22: Oral intake fair. Feels dryness of the nose and blockage of the nostril. A few nasal drops ordered. 9 L nasal cannula. Back in atrial fibrillation, rate controlled. Cough present. Nasal screen negative for MRSA. October 23: Down to 6 L of nasal cannula. Congested cough present. Currently sinus rhythm. Eating fair. October 24: Remains on 6 L nasal cannula. Oral intake fair. Cough. Sinus rhythm. Some bloodstained sputum. October 25: On 6 L nasal cannula. Some shortness of breath. Congested chest. Dr. Ball discontinued to eliquis to proceed for bronchoscopy on . Patient reminded to use incentive spirometry. October 26: Congested cough. Still bringing up slight bloody sputum. Eliquis was held yesterday. For bronchoscopy tomorrow. Oral intake fair. Remains on 6 L nasal cannula. October 27: Earlier today patient underwent bronchoscopy by Dr. Ball. Significant amount of blood also removed. Patient then taken to the ICU. On the ventilator. FiO2 80% PEEP of 8. On propofol. Sinus rhythm. October 28: ICU. Chest feels much better. Breathing better. No further hemoptysis. Was extubated earlier. On 6 L nasal cannula. Oral intake fair. Has been out of bed. October 29: ICU. Remains on 6 L nasal cannula. No BiPAP. Small amount of hemoptysis. Remains off anticoagulation. Eating better. In and out of sinus rhythm. October 30: ICU. Oxygen up to 9 L. Some shortness of breath. Patient has been in and out of sinus rhythm. Remains off anticoagulation. Did talk to the patient and . Have him sit up more. Use incentive spirometry. Eating well. Vancomycin discontinued by pulmonary today. Amiodarone discontinued. Increase Lopressor 100 mg twice a day October 31: On 7 L nasal cannula. Some shortness of breath. Paroxysmal A. fib. Oral thrush. Diflucan started. On flecainide, Lopressor. Cutback Solu- Medrol to 40 mg every 8. Pathology: Features of organizing pneumonia. Negative for cytology. November 01: Oral intake fair. On 7 L nasal cannula. Throat feels better after Diflucan. On IV Solu-Medrol. Edge of the bed. This morning heart rate in the 140s with A. fib. Then came down Active Medications Acetaminophen (Acetaminophen Tab 325 Mg Tab) 650 mg PO Q6HR PRN PRN Reason: Mild Pain or Fever > 100.5 Last Admin: 10/31/21 04:08 Dose: 650 mg Documented by: Hydrocodone Bitart/Acetaminophen (Hydrocodone/Apap 10-325mg 1 Each Tab) 1 each PO Q6HR PRN PRN Reason: Pain Last Admin: 11/01/21 12:13 Dose: 1 each Documented by: Albuterol/Ipratropium (Ipratropium-Albuterol 3 Ml Neb) 3 ml INHALATION RT-Q4H PRN PRN Reason: Shortness Of Breath Or Wheezing Last Admin: 10/17/21 11:28 Dose: 3 ml Documented by: Albuterol/Ipratropium (Ipratropium-Albuterol 3 Ml Neb) 3 ml INHALATION RT-QID [facility] Last Admin: 11/01/21 19:23 Dose: 3 ml Documented by: Atorvastatin Calcium (Atorvastatin 80 Mg Tab) 80 mg PO HS [facility] Last Admin: 10/31/21 20:48 Dose: 80 mg Documented by: Budesonide (Budesonide 1 Mg/2 Ml Nebu) 1 mg INHALATION RT-BID [facility] Last Admin: 11/01/21 19:24 Dose: 1 mg Documented by: Flecainide Acetate (Flecainide 50 Mg Tab) 50 mg PO Q12HR [facility] Last Admin: 11/01/21 09:32 Dose: 50 mg Documented by: Fluconazole (Fluconazole 150 Mg Tab) 150 mg PO DAILY [facility] Last Admin: 11/01/21 09:34 Dose: 150 mg Documented by: Formoterol Fumarate (Formoterol Fumarate 20 Mcg/2 Ml Nebu) 20 mcg INHALATION RT-BID [facility] Last Admin: 11/01/21 19:23 Dose: 20 mcg Documented by: Furosemide (Furosemide 20 Mg Tab) 20 mg PO DAILY [facility] Last Admin: 11/01/21 09:32 Dose: 20 mg Documented by: Lisinopril/HCTZ (Lisinopril-Hctz 10-12.5 Mg 1 Each Tab) 1 each PO BID [facility] Last Admin: 11/01/21 09:31 Dose: 1 each Documented by: Hydralazine HCl (Hydralazine Hcl 20 Mg/Ml 1 Ml Vial) 10 mg IVP Q6HR PRN PRN Reason: Blood Pressure - High Last Admin: 10/31/21 09:14 Dose: 10 mg Documented by: Sodium Chloride (Saline 0.9%) 500 mls @ 20 mls/hr IV .Q24H [facility] Last Admin: 11/01/21 09:37 Dose: Not Given Documented by: Insulin Aspart (Insulin Aspart (Novolog) 100 Unit/Ml Vial) 0 unit SQ ACHS [facility]; Protocol Last Admin: 11/01/21 16:57 Dose: 1 unit Documented by: Methylprednisolone Sodium Succinate (Methylprednisolone Sod Succi 40 Mg/Ml 1 Ml Vial) 40 mg IV Q8HR [facility] Last Admin: 11/01/21 16:58 Dose: 40 mg Documented by: Metoprolol Tartrate (Metoprolol Tartrate 50 Mg Tab) 150 mg PO BID [facility] Morphine Sulfate (Morphine Sulfate Er 15 Mg Tablet) 15 mg PO BID@0600,1600 [facility]; Protocol Last Admin: 11/01/21 16:57 Dose: 15 mg Documented by: Naloxone HCl (Naloxone 0.4 Mg/Ml 1 Ml Vial) 0.2 mg IV Q2M PRN PRN Reason: Opioid Reversal Ondansetron HCl (Ondansetron 4 Mg Tab) 4 mg PO Q4H PRN PRN Reason: Nausea And Vomiting Last Admin: 10/30/21 05:24 Dose: 4 mg Documented by: Pramipexole Dihydrochloride (Pramipexole 1 Mg Tab) 1 mg PO BID@0600,1600 [facility] Last Admin: 11/01/21 16:57 Dose: 1 mg Documented by: Sertraline HCl (Sertraline 100 Mg Tab) 100 mg PO DAILY@1600 [facility] Last Admin: 11/01/21 16:56 Dose: 100 mg Documented by: Past medical history to include: COPD, hypertension, obstructive sleep apnea, DJD, skin cancer Social history: . Smoked for 30 years stopped in 1979. Family history: Reviewed, noncontributory to presentation Physical examination: VITAL SIGNS: 96.8, 84, 17, 151/90, 95% on 7 L GENERAL: Sitting edge of the bed awake, some shortness of breath Oral cavity: White patches greatly resolved EYES: Pupils equal. Conjunctiva normal. NECK: JVD unable to assess; masses not palpable. HEART: First second sounds normal; no edema. LUNGS: Respiratory rate increased decreased breath sounds, some expiratory crackles ABDOMEN: Soft, nontender, liver spleen not palpable, no masses palpable. PSYCH: AO 3, mood and affect normal MUSCULOSKELETAL:No Clubbing/cyanosis;muscles-grossly intact INVESTIGATIONS, reviewed in the clinical context: Bronchial washings: Teri Albicans. Cytology: No malignant cells. Biopsy: Features of organizing pneumonia. October 30: White count 20.3 hemoglobin 14.2 potassium 4.1 BUN 22 creatinine 0.5 for October 29: White count 9.6 hemoglobin 13.4 potassium 3.8 creatinine 0.57 October 28: White count 12.8 hemoglobin 12.3 potassium 3.6 creatinine 0.5 to October 27: White count 14.1 hemoglobin 12.4 platelets 383 potassium 3.9 BUN 21 creatinine 0.5 October 26: Potassium 4.4 creatinine 0.61 October 24: Creatinine 0.55 October 23: WBC 18.3 hemoglobin 14.1 platelets 49 potassium 4.7 BUN 23 creatinine 0.6 October 22: Creatinine 0.58 Accu-Cheks noted. Nasal screen negative for MRSA October 21: Creatinine 0.64 October 20: White count 12.9 hemoglobin 13.2 platelets 404 potassium 4.4 creatinine 0.5 to October 19: Potassium 4.5 crit 0.5 October 18: White count 18 hemoglobin 12.5 potassium 4.3 creatinine 0.61 October 17: White count 24.6 hemoglobin 11.9 platelets 277 sodium 141 potassium 4.2 creatinine 0.67. Pro-calcitonin 0.06 Chest x-ray film personally reviewed by me-[October 16] significant right-sided infiltrates White count 25.6 hemoglobin 15.9 platelets 324 increased neutrophils d-dimer 7.48 sodium 138 potassium 4.2. 38 creatinine 1.53 lactic acid 3.8 Troponin I 2.0, 1.7, 1.2 Coronavirus [PCR]: Not detected EKG tracing personally reviewed by me-atrial fibrillation ST-T wave changes, rate 138 Chest angiogram chest: Moderate emphysema. Extensive patchy and confluent consolidation throughout the right lung. Some of the left side 2. Hilar lymphadenopathy. 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 Bronchoscopy done October 28: Cultures: Teri albicans. Negative cytology. Organizing pneumonia on biopsy. -Bronchoscopy reveals several blood clots that was removed. Epinephrine was used. -Severe sepsis from pneumonia: Better IV fluids. Antibiotics discontinued. -Paroxysmal Atrial fibrillation rapid ventricular rate on presentation. In and out of A. fib. Beta valente. [Received: IV heparin. IV Cardizem drip] Eliquis, Lopressor 100 twice a day. Amiodarone discontinued. Cardizem discontinued. Flecainide IV heparin monitoring: Discontinued Follow PTT -Acute COPD exacerbation in a prior smoker: Slow to respond DuoNeb. IV Solu-Medrol 40 mg every 8 -Acute severe hypoxic respiratory failure from pneumonia: Slow to respond Intermittent BiPAP. 7 L high flow nasal cannula -Essential hypertension Zestril 10 mg daily Lopressor 50 mg 3 times a day. Cardizem 30 mg 3 times a day -Restless leg syndrome Mirapex 1 mg twice a day -Depression Zoloft 100 mg daily Primary osteoarthritis multiple joints bilaterally [place] 10 every 6 -Oropharyngeal candidiasis from use of steroids and antibiotics Start Diflucan IV Solu-Medrol 40 mg every 8.. Lopressor, flecainide. Diflucan. discussed with patient. Follow with pulmonary and cardiology.
[2021-11-01] MEDS: ATORVASTATIN 80 MG TAB PO SCH (20:23)
[2021-11-02] MEDS: methylPREDNISolone SOD SUCCI 40 MG/ML 1 ML VIAL IV SCH ×4 (00:30→23:48)
[2021-11-02] MEDS: HYDROcodone/APAP 10-325MG 1 EACH TAB PO PRN (00:30)
[2021-11-02] MEDS: PRAMIPEXOLE 1 MG TAB PO SCH ×2 (05:50→16:20)
[2021-11-02] MEDS: MORPHINE SULFATE ER 15 MG TABLET PO SCH ×2 (05:50→16:20)
[2021-11-02 07:09] LABS: Glucose,Whole Blood 105 mg/dL (75-99)
[2021-11-02] MEDS: INSULIN ASPART (NovoLOG) 100 UNIT/ML VIAL SQ SCH ×4 (07:09→21:06)
[2021-11-02 08:08] LABS: HCT 38.9 % (39.0-53.0); HGB 12.8 gm/dL (13.0-17.5); MCH 33.5 pg (25.0-35.0); MCHC 32.9 g/dL (31.0-37.0); MCV 101.7 fL (80.0-100.0); Macrocytosis Slight; Mean Platelet Volume 7.5; Platelet Count 225 k/uL (150-450); RBC 3.83 m/uL (4.30-5.90); RDW 14.2 % (11.5-15.5); WBC 15.8 k/uL (3.8-10.6)
[2021-11-02] MEDS: BUDESONIDE 1 MG/2 ML NEBU INHALATION SCH ×2 (08:15→20:35)
[2021-11-02] MEDS: IPRATROPIUM-ALBUTEROL 3 ML NEB INHALATION SCH ×4 (08:15→20:35)
[2021-11-02] MEDS: FORMOTEROL FUMARATE 20 MCG/2 ML NEBU INHALATION SCH ×2 (08:15→20:35)
[2021-11-02 08:25] LABS: African American GFR (CKD) >90 (>60 ml/min/1.73 sqM); Anion Gap 1 mmol/L; Blood Urea Nitrogen 28 mg/dL (9-20); Carbon Dioxide 34 mmol/L (22-30); Chloride 96 mmol/L (98-107); Glucose 139 mg/dL (74-99); Non-African American GFR(CKD) >90 (>60 ml/min/1.73 sqM); Sodium 131 mmol/L (137-145)
[2021-11-02] MEDS: FLUCONAZOLE 150 MG TAB PO SCH (10:42)
[2021-11-02] MEDS: FLECAINIDE 50 MG TAB PO SCH ×2 (10:42→21:06)
[2021-11-02] MEDS: FUROSEMIDE 20 MG TAB PO SCH (10:42)
[2021-11-02] MEDS: LISINOPRIL-HCTZ 10-12.5 MG 1 EACH TAB PO SCH ×2 (10:42→21:16)
[2021-11-02 11:32] LABS: Glucose,Whole Blood 170 mg/dL (75-99)
--- NOTE | 2021-11-02 11:43 | P.PN ---
Subjective Progress Note Date: 11/02/21 76-year-old male with a history of COPD, who presents to the emergency department on October 13, complaining of shortness of breath. The patient also complains of cough, dizziness, fever, chills, and phlegm production. The patient has been feeling well as mentioned above for at least 2-3 weeks. The patient was evaluated in the emergency department. He was found have atrial fibrillation with rapid ventricular response. In addition, his chest x-ray and CAT scan suggested pneumonia, with significant consolidation and abnormalities noted more so in the right lung that in the left. The patient has been vaccinated fully. We saw him in the emergency department, room 6, he was on BiPAP, with settings of IPAP 12, EPAP 6, and 60%. The patient was on IV heparin via weight based protocol, and a Cardizem drip at 15 mg an hour. The patient was lying flat in bed. He did not appear to have a great deal of respiratory difficulty. White count 22,000, hemoglobin 13, hematocrit 42.1, platelet count 326,000. PT 13, INR 1.2, PTT 38.3. D-dimer was 7.48. Sodium, potassium, chloride, CO2, and anion gap are all normal BUN was 38 creatinine of 1.53. Troponin was elevated at 2.06, 1.74, and 1.24. Testing for mae virus was negative. He was no pulmonary embolism on CT angiogram. In addition, there was mediastinal bilateral hilar lymphadenopathy, measuring up to 5.2 cm. The patient is seen today 10/15/2021 in follow-up on the selective care unit. He is currently resting comfortably in bed. He is alert in no acute distress. Off the BiPAP and currently on 9 L high flow nasal cannula. He has normal saline running at 100 ML's per hour. He is feeling a bit better today compared to yesterday. Still with a loose nonproductive cough. Sputum culture revealed no growth. Blood cultures reveal no growth. Urine legionella antigen negative. He remains on a heparin drip. Continued on Symbicort, DuoNeb inhalations, antibiotics in the form of ceftriaxone and azithromycin. Patient is seen today 10/16/2021 in follow-up on the selective care unit. He is currently resting fairly comfortably in bed. He is on BiPAP 12/660% FiO2. He has normal saline running at 20 ML's per hour. Continued on a heparin drip. Blood cultures revealed no growth. Sputum cultures revealed no growth. White count 24.6. Hemoglobin 11.9. Sodium 141. Potassium 4.2. Creatinine 0.67. He remains on DuoNeb inhalations, Symbicort, antibiotics in the form of azithromycin and ceftriaxone. This x-ray continues to show bilateral patchy air space disease right greater than left. Progress note dated 10/31/2021. The patient is again seen in room 366. Currently, he's on 7 L high flow nasal O2, with saturations in the low 90s. Clinically, the patient's feeling much better. The patient was in the intensive care unit yesterday, and was transferred out yesterday. His complaints include primarily shortness of breath. The patient apparently underwent bronchoscopy, and had biopsy showing organizing pneumonia. Subsequent to the biopsies, apparently he had some significant bleeding. Currently that has settled down. No new laboratory data today. Chest x-ray from October 30 shows consolidation throughout the right lung field, which is unchanged. The patient remains on budesonide, cefepime, formoterol, DuoNeb nebs, Solu-Medrol, and vancomycin. Progress note dated 11/01/2021. The patient is again seen in room 366. He's currently on 6 L nasal cannula. He is receiving saline at KVO. He is doing much better and feeling much better. The patient underwent bronchoscopy and biopsy showing organizing pneumonia. Subsequent to the biopsies, he had some bleeding, which is settled down. He denies any current bleeding or hemoptysis. No new laboratory data. The patient is seen today November 02 2021 in follow-up on the regular medical floor. He is currently resting comfortably in bed. Awake and alert in no acute distress. He's on 6 L high flow nasal cannula. His bronchoscopy with biopsy showed organizing pneumonia. He is feeling better daily. He is continued on IV Solu-Medrol, DuoNeb inhalations, Pulmicort and Perforomist inhalations. White count 15.8. Hemoglobin 12.8. Sodium 131. Potassium 4.0. Creatinine 0.62. Objective - Vital Signs Vital signs: Vital Signs Temp 97.5 F L 11/02/21 08:42 Pulse 84 11/02/21 11:04 Resp 26 H 11/02/21 08:42 BP 155/77 11/02/21 08:42 Pulse Ox 94 L 11/02/21 08:42 Intake & Output 11/01/21 11/02/21 11/02/21 18:59 06:59 18:59 Intake Total 358 320 120 Output Total 375 1150 525 Balance -17 -830 -405 Intake: Oral 358 320 120 Output: Urine 375 1150 525 Other: Voiding Method Indwelling Catheter # Voids 1 # Bowel Movements 1 1 - Exam GENERAL EXAM: Alert, very pleasant 76-year-old gentleman, on 6 L high flow nasal cannula, fairly comfortable in no apparent distress. HEAD: Normocephalic. EYES: Normal reaction of pupils, equal size. NOSE: Clear with pink turbinates. THROAT: No erythema or exudates. NECK: No masses, no JVD. CHEST: No chest wall deformity. LUNGS: Equal air entry with coarse bilateral rhonchi CVS: S1 and S2 normal with no audible murmur, regular rhythm. ABDOMEN: No hepatosplenomegaly, normal bowel sounds, no guarding or rigidity. SPINE: No scoliosis or deformity SKIN: No rashes CENTRAL NERVOUS SYSTEM: No focal deficits, tone is normal in all 4 extremities. EXTREMITIES: There is no peripheral edema. No clubbing, no cyanosis. Periphera l pulses are intact. - Labs CBC & Chem 7: 11/02/21 07:50 11/02/21 07:50 Labs: Abnormal Lab Results - Last 24 Hours (Table) 11/01/21 11/01/21 11/02/21 Range/Units 16:36 20:01 07:07 WBC (3.8-10.6) k/uL RBC (4.30-5.90) m/uL Hgb (13.0-17.5) gm/dL Hct (39.0-53.0) % MCV (80.0-100.0) fL Sodium (137-145) mmol/L Chloride (98-107) mmol/L Carbon Dioxide (22-30) mmol/L BUN (9-20) mg/dL Creatinine (0.66-1.25) mg/dL Glucose (74-99) mg/dL POC Glucose (mg/dL) 139 H 135 H 105 H (75-99) mg/dL Calcium (8.4-10.2) mg/dL 11/02/21 11/02/21 11/02/21 Range/Units 07:50 07:50 11:30 WBC 15.8 H (3.8-10.6) k/uL RBC 3.83 L (4.30-5.90) m/uL Hgb 12.8 L (13.0-17.5) gm/dL Hct 38.9 L (39.0-53.0) % MCV 101.7 H (80.0-100.0) fL Sodium 131 L (137-145) mmol/L Chloride 96 L (98-107) mmol/L Carbon Dioxide 34 H (22-30) mmol/L BUN 28 H (9-20) mg/dL Creatinine 0.62 L (0.66-1.25) mg/dL Glucose 139 H (74-99) mg/dL POC Glucose (mg/dL) 170 H (75-99) mg/dL Calcium 8.0 L (8.4-10.2) mg/dL Assessment and Plan Assessment: 1 Acute hypoxemic respiratory failure, multifactorial, in part related to bilateral pneumonia, right greater than left, completed ceftriaxone and azithromycin. Bronchoscopy revealed organizing pneumonia. 2 Atrial fibrillation with RVR. Currently better controlled. Maintained on Eliquis. 3 Mild/moderate acute kidney injury. 4 History of COPD. 5 History of hypertension. 6 History of obstructive sleep apnea syndrome. 7 History of skin cancer. 8 Prior history of pneumonia. 9 Prior history of tobacco use. Plan: The patient was seen and evaluated Improved and on 6 L No further hemoptysis Continued on DuoNeb inhalations Continue Pulmicort and Perforomist Continue IV Solu-Medrol Resume Eliquis Titrate the FiO2 as tolerated Will most likely need home oxygen We'll continue to follow I, the cosigning physician, performed a history & physical examination of the patient. Lungs sounds with few scattered rhonchi. Maintaining O2 saturations in the 90s on 6 L high flow nasal cannula. I discussed the assessment and plan of care with my nurse practitioner, Margy Reyes. I attest to the above note as dictated by her.
--- NOTE | 2021-11-02 12:58 | P.PN ---
Subjective This is a 76-year-old gentleman with a past medical history significant for hypertension and dyslipidemia and sleep apnea and also chronic obstructive pulmonary disease, presented to the emergency department complaining of shortness of breath. 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 We consulted to see the patient for further evaluation of atrial fibrillation with RVR, abnormal cardiac enzymes and elevated troponin. The patient states that for the last few days he has not been feeding well. In the ER the patient was found to be hypoxic with oxygen saturation of 75% and subsequently he was placed on BiPAP with improvement in his oxygenation. Also he presented to the emergency department he was in atrial fibrillation with RVR and subsequently converted to normal sinus mechanism after he was started on Cardizem IV. The patient underwent a workup including EKG as described earlier showing A. fib with diffuse nonspecific ST and T wave abnormalities. No EKG after the patient was converted to normal sinus mechanism. Also the troponin came in to be elevated. The chest x-ray showed findings consistent with a pneumonia. He underwent a computed tomography scan of the chest which showed multiple findings including no pulmonary embolism, bilateral hilar adenopathy, bilateral infiltrate, and also small to moderate pericardial effusion, heart failure. 10/15/21 Echocardiogram revealed an EF between 50 and 55% with mild mitral and t ricuspid regurgitation, mild aortic valve sclerosis, and moderately enlarged right ventricle with left ventricular hypertrophy. 10/27- Patient underwent Bronch with BAL, revealed organizing pneumonia. After bronch while on vent he has been bradycardic with HR's in the 40's and in and out of afib with conversion pauses up to 4 seconds. Therefore amio, metoprolol and Cardizem was held 10/28- Eliquis has been on hold due to hemoptysis 11/02/2021 Patient seen and examined. He is in no acute distress. He denies any chest pain. Denies any worsening shortness of breath or palpitations. No further hemoptysis or bleeding. Telemetry reviewed, patient converted back to sinus mechanism, bradycardic in the 50s. His metoprolol was increased to 150mg BID yesterday. He was stopped on amiodarone secondary to concern of lung toxicity and therefore was started on flecainide for rhythm control Eliquis 5 mg twice a day continues to be on hold. Meds: atorvastatin 80 mg nightly, flecainide 50 mg twice a day, metoprolol tartrate 150 mg twice a day, Lasix 20 mg daily, PRN hydralazine Labs: Sodium 131, potassium 4.0, BUN 20, serum creatinine 0.6, WBC 15.8, platelets 225, hemoglobin 12.8 PHYSICAL EXAM: VITAL SIGNS: Blood pressure 154/72, heart rate 58, afebrile, oxygen saturation is 93% on 6 L high flow nasal cannula GENERAL: Well-developed in no acute distress. NECK: Supple. No JVD or thyromegaly LUNGS: Respirations even and unlabored. Lungs diminished with scattered rhonchi. HEART: Regular rate and rhythm. S1 and S2 heard. EXTREMITIES: Normal range of motion. No clubbing or cyanosis. Peripheral pulses intact. Trace bilateral lower extremity edema ASSESSMENT: Bilateral pneumonia Acute COPD exacerbation Hypoxemia secondary to the above New onset paroxysmal atrial fibrillation with RVR Atypical atrial fluter Type II NSTEMI resulting from demand ischemia from RVR Obstructive sleep apnea Sinus bradycardia PLAN: Decrease metoprolol back to 100mg BID Continue Flecainide 50mg BID Continue to monitor rates Continue statin Anticoagulation continues to be on hold due to hemoptysis and hematochezia, which has resolved. Resume Eliquis 5mg BID We will monitor for bleeding We will continue to attempt aggressive rhythm control. Avoid amiodarone for now given pulmonary concern of lung toxicity per pulmonary. Patient to follow up with Dr. Betancourt as an outpatient, we will consider possible ablation outpatient. Further recommendations pending patient course Nurse practitioner note has been reviewed by physician. Signing provider agrees with the documented findings, assessment, and plan of care. Objective - Vital Signs Vital signs: Vital Signs Temp 97.6 F 11/02/21 12:43 Pulse 58 L 11/02/21 12:43 Resp 18 11/02/21 12:43 BP 154/72 11/02/21 12:43 Pulse Ox 93 L 11/02/21 12:43 Intake & Output 11/01/21 11/02/21 11/02/21 18:59 06:59 18:59 Intake Total 358 320 120 Output Total 375 1150 525 Balance -17 -830 -405 Intake: Oral 358 320 120 Output: Urine 375 1150 525 Other: Voiding Method Indwelling Catheter # Voids 1 # Bowel Movements 1 1 - Labs CBC & Chem 7: 11/02/21 07:50 11/02/21 07:50 Labs: Abnormal Lab Results - Last 24 Hours (Table) 11/01/21 11/01/21 11/02/21 Range/Units 16:36 20:01 07:07 WBC (3.8-10.6) k/uL RBC (4.30-5.90) m/uL Hgb (13.0-17.5) gm/dL Hct (39.0-53.0) % MCV (80.0-100.0) fL Sodium (137-145) mmol/L Chloride (98-107) mmol/L Carbon Dioxide (22-30) mmol/L BUN (9-20) mg/dL Creatinine (0.66-1.25) mg/dL Glucose (74-99) mg/dL POC Glucose (mg/dL) 139 H 135 H 105 H (75-99) mg/dL Calcium (8.4-10.2) mg/dL 11/02/21 11/02/21 11/02/21 Range/Units 07:50 07:50 11:30 WBC 15.8 H (3.8-10.6) k/uL RBC 3.83 L (4.30-5.90) m/uL Hgb 12.8 L (13.0-17.5) gm/dL Hct 38.9 L (39.0-53.0) % MCV 101.7 H (80.0-100.0) fL Sodium 131 L (137-145) mmol/L Chloride 96 L (98-107) mmol/L Carbon Dioxide 34 H (22-30) mmol/L BUN 28 H (9-20) mg/dL Creatinine 0.62 L (0.66-1.25) mg/dL Glucose 139 H (74-99) mg/dL POC Glucose (mg/dL) 170 H (75-99) mg/dL Calcium 8.0 L (8.4-10.2) mg/dL
[2021-11-02] MEDS: SERTRALINE 100 MG TAB PO SCH (16:20)
[2021-11-02 16:43] LABS: Glucose,Whole Blood 135 mg/dL (75-99)
[2021-11-02] MEDS: SODIUM CHLORIDE 0.9% 500 ML 500 ML IV SCH (17:52)
[2021-11-02] MEDS: METOPROLOL TARTRATE 50 MG TAB PO SCH ×2 (18:03→21:06)
[2021-11-02 19:43] LABS: Glucose,Whole Blood 151 mg/dL (75-99)
[2021-11-02] MEDS: APIXABAN 5 MG TAB PO SCH (21:06)
[2021-11-02] MEDS: ATORVASTATIN 80 MG TAB PO SCH (21:06)
--- NOTE | 2021-11-02 21:25 | P.PN ---
Progress Note - Text Progress Note Date: 11/02/21 Chief Complaint: Short of breath Hospital course This is a pleasant 76-year-old patient of Dr. Sultana. Chronic stable medical conditions include hypertension, obstructive sleep apnea, DJD, obesity. Depression, Patient presented increasing shortness of breath for 1 week, wheezing. Cough fever periods Sputum Production. Decrease Appetite Tired Rundown. Symptoms Became Progressively Worse. Found to Pulse Ox of 75% in the ER. Put on a BiPAP. Antibiotics. Bronchodilators. Admitted with bilateral pneumonia right greater than left, atrial fibrillation rapid ventricular rate, sepsis, COPD exacerbation. Started on IV cefepime, bronchodilators, IV steroids, IV heparin, IV Cardizem drip. Patient requiring BiPAP. Patient was changed over from IV heparin to eliquis. Beta blockers added. October 17: Breathing better. Decreased sputum production. On 12 L high flow nasal cannula. Had about half his breakfast. Not much appetite for lunch. Requested the patient sit up in a chair. Tired. Patient has been in sinus rhythm. October 18: Remains tired, short of breath. 12 L nasal cannula. Eating some. Vancomycin added by pulmonary. October 19: Tired. Short of breath. Remains on high flow nasal cannula. Intermittent BiPAP. Oral intake very well. Cough. I did today atrial fibrillation with rapid ventricular rate. Lopressor increased to 50 mg 3 times a day by cardiology. October 20: Feeling better. Sitting at the edge of the bed. 8 on his lunch. On 11 L nasal cannula. Patient is in sinus rhythm. Patient was started on oral amiodarone and oral Cardizem yesterday. October 21: Sitting of the edge of the bed. Eating better. 10 liters nasal cannula. Some cough. Sinus rhythm. October 22: Oral intake fair. Feels dryness of the nose and blockage of the nostril. A few nasal drops ordered. 9 L nasal cannula. Back in atrial fibrillation, rate controlled. Cough present. Nasal screen negative for MRSA. October 23: Down to 6 L of nasal cannula. Congested cough present. Currently sinus rhythm. Eating fair. October 24: Remains on 6 L nasal cannula. Oral intake fair. Cough. Sinus rhythm. Some bloodstained sputum. October 25: On 6 L nasal cannula. Some shortness of breath. Congested chest. Dr. Ball discontinued to eliquis to proceed for bronchoscopy on . Patient reminded to use incentive spirometry. October 26: Congested cough. Still bringing up slight bloody sputum. Eliquis was held yesterday. For bronchoscopy tomorrow. Oral intake fair. Remains on 6 L nasal cannula. October 27: Earlier today patient underwent bronchoscopy by Dr. Ball. Significant amount of blood also removed. Patient then taken to the ICU. On the ventilator. FiO2 80% PEEP of 8. On propofol. Sinus rhythm. October 28: ICU. Chest feels much better. Breathing better. No further hemoptysis. Was extubated earlier. On 6 L nasal cannula. Oral intake fair. Has been out of bed. October 29: ICU. Remains on 6 L nasal cannula. No BiPAP. Small amount of hemoptysis. Remains off anticoagulation. Eating better. In and out of sinus rhythm. October 30: ICU. Oxygen up to 9 L. Some shortness of breath. Patient has been in and out of sinus rhythm. Remains off anticoagulation. Did talk to the patient and . Have him sit up more. Use incentive spirometry. Eating well. Vancomycin discontinued by pulmonary today. Amiodarone discontinued. Increase Lopressor 100 mg twice a day October 31: On 7 L nasal cannula. Some shortness of breath. Paroxysmal A. fib. Oral thrush. Diflucan started. On flecainide, Lopressor. Cutback Solu- Medrol to 40 mg every 8. Pathology: Features of organizing pneumonia. Negative for cytology. November 01: Oral intake fair. On 7 L nasal cannula. Throat feels better after Diflucan. On IV Solu-Medrol. Edge of the bed. This morning heart rate in the 140s with A. fib. Then came down November 02: Congested cough. Remains on DuoNeb, eliquis-started today, recommended, Diflucan, IV Solu-Medrol. Oral intake fair. Patient is remained to be in and out of A. fib., On 6 L FiO2 Active Medications Acetaminophen (Acetaminophen Tab 325 Mg Tab) 650 mg PO Q6HR PRN PRN Reason: Mild Pain or Fever > 100.5 Last Admin: 10/31/21 04:08 Dose: 650 mg Documented by: Hydrocodone Bitart/Acetaminophen (Hydrocodone/Apap 10-325mg 1 Each Tab) 1 each PO Q6HR PRN PRN Reason: Pain Last Admin: 11/02/21 00:30 Dose: 1 each Documented by: Albuterol/Ipratropium (Ipratropium-Albuterol 3 Ml Neb) 3 ml INHALATION RT-Q4H PRN PRN Reason: Shortness Of Breath Or Wheezing Last Admin: 10/17/21 11:28 Dose: 3 ml Documented by: Albuterol/Ipratropium (Ipratropium-Albuterol 3 Ml Neb) 3 ml INHALATION RT-QID [facility] Last Admin: 11/02/21 20:35 Dose: 3 ml Documented by: Apixaban (Apixaban 5 Mg Tab) 5 mg PO BID [facility]; Protocol Last Admin: 11/02/21 21:06 Dose: 5 mg Documented by: Atorvastatin Calcium (Atorvastatin 80 Mg Tab) 80 mg PO HS [facility] Last Admin: 11/02/21 21:06 Dose: 80 mg Documented by: Budesonide (Budesonide 1 Mg/2 Ml Nebu) 1 mg INHALATION RT-BID [facility] Last Admin: 11/02/21 20:35 Dose: 1 mg Documented by: Flecainide Acetate (Flecainide 50 Mg Tab) 50 mg PO Q12HR [facility] Last Admin: 11/02/21 21:06 Dose: 50 mg Documented by: Fluconazole (Fluconazole 150 Mg Tab) 150 mg PO DAILY [facility] Last Admin: 11/02/21 10:42 Dose: 150 mg Documented by: Formoterol Fumarate (Formoterol Fumarate 20 Mcg/2 Ml Nebu) 20 mcg INHALATION RT -BID [facility] Last Admin: 11/02/21 20:35 Dose: 20 mcg Documented by: Furosemide (Furosemide 20 Mg Tab) 20 mg PO DAILY [facility] Last Admin: 11/02/21 10:42 Dose: 20 mg Documented by: Lisinopril/HCTZ (Lisinopril-Hctz 10-12.5 Mg 1 Each Tab) 1 each PO BID [facility] Last Admin: 11/02/21 21:16 Dose: 1 each Documented by: Hydralazine HCl (Hydralazine Hcl 20 Mg/Ml 1 Ml Vial) 10 mg IVP Q6HR PRN PRN Reason: Blood Pressure - High Last Admin: 10/31/21 09:14 Dose: 10 mg Documented by: Sodium Chloride (Saline 0.9%) 500 mls @ 20 mls/hr IV .Q24H [facility] Last Admin: 11/02/21 17:52 Dose: Not Given Documented by: Insulin Aspart (Insulin Aspart (Novolog) 100 Unit/Ml Vial) 0 unit SQ ACHS [facility]; Protocol Last Admin: 11/02/21 21:06 Dose: 2 unit Documented by: Methylprednisolone Sodium Succinate (Methylprednisolone Sod Succi 40 Mg/Ml 1 Ml Vial) 40 mg IV Q8HR [facility] Last Admin: 11/02/21 16:20 Dose: 40 mg Documented by: Metoprolol Tartrate (Metoprolol Tartrate 50 Mg Tab) 100 mg PO BID [facility] Last Admin: 11/02/21 21:06 Dose: 100 mg Documented by: Morphine Sulfate (Morphine Sulfate Er 15 Mg Tablet) 15 mg PO BID@0600,1600 [facility]; Protocol Last Admin: 11/02/21 16:20 Dose: 15 mg Documented by: Naloxone HCl (Naloxone 0.4 Mg/Ml 1 Ml Vial) 0.2 mg IV Q2M PRN PRN Reason: Opioid Reversal Ondansetron HCl (Ondansetron 4 Mg Tab) 4 mg PO Q4H PRN PRN Reason: Nausea And Vomiting Last Admin: 10/30/21 05:24 Dose: 4 mg Documented by: Pramipexole Dihydrochloride (Pramipexole 1 Mg Tab) 1 mg PO BID@0600,1600 [facility] Last Admin: 11/02/21 16:20 Dose: 1 mg Documented by: Sertraline HCl (Sertraline 100 Mg Tab) 100 mg PO DAILY@1600 [facility] Last Admin: 11/02/21 16:20 Dose: 100 mg Documented by: Past medical history to include: COPD, hypertension, obstructive sleep apnea, DJD, skin cancer Social history: . Smoked for 30 years stopped in 1979. Family history: Reviewed, noncontributory to presentation Physical examination: VITAL SIGNS: 97.8, 70, 18, 155 a 72, 92% on 6 L GENERAL: Sitting edge of the bed awake, some shortness of breath Oral cavity: White patches greatly resolved EYES: Pupils equal. Conjunctiva normal. NECK: JVD unable to assess; masses not palpable. HEART: First second sounds normal; no edema. LUNGS: Respiratory rate increased decreased breath sounds, some expiratory crackles ABDOMEN: Soft, nontender, liver spleen not palpable, no masses palpable. PSYCH: AO 3, mood and affect normal MUSCULOSKELETAL:No Clubbing/cyanosis;muscles-grossly intact INVESTIGATIONS, reviewed in the clinical context: November 02: White count 15.8 hemoglobin 12.8 potassium 4 creatinine 0.62 Bronchial washings: Teri Albicans. Cytology: No malignant cells. Biopsy: Features of organizing pneumonia. October 30: White count 20.3 hemoglobin 14.2 potassium 4.1 BUN 22 creatinine 0.5 for October 12: White count 9.6 hemoglobin 13.4 potassium 3.8 creatinine 0.57 October 28: White count 12.8 hemoglobin 12.3 potassium 3.6 creatinine 0.5 to October 27: White count 14.1 hemoglobin 12.4 platelets 383 potassium 3.9 BUN 21 creatinine 0.5 October 26: Potassium 4.4 creatinine 0.61 October 24: Creatinine 0.55 October 23: WBC 18.3 hemoglobin 14.1 platelets 49 potassium 4.7 BUN 23 creatinine 0.6 October 22: Creatinine 0.58 Accu-Cheks noted. Nasal screen negative for MRSA October 21: Creatinine 0.64 October 20: White count 12.9 hemoglobin 13.2 platelets 404 potassium 4.4 cr eatinine 0.5 to October 19: Potassium 4.5 crit 0.5 October 18: White count 18 hemoglobin 12.5 potassium 4.3 creatinine 0.61 October 17: White count 24.6 hemoglobin 11.9 platelets 277 sodium 141 potassium 4.2 creatinine 0.67. Pro-calcitonin 0.06 Chest x-ray film personally reviewed by me-[October 16] significant right-sided infiltrates White count 25.6 hemoglobin 15.9 platelets 324 increased neutrophils d-dimer 7.48 sodium 138 potassium 4.2. 38 creatinine 1.53 lactic acid 3.8 Troponin I 2.0, 1.7, 1.2 Coronavirus [PCR]: Not detected EKG tracing personally reviewed by me-atrial fibrillation ST-T wave changes, rate 138 Chest angiogram chest: Moderate emphysema. Extensive patchy and confluent consolidation throughout the right lung. Some of the left side 2. Hilar lymphadenopathy. 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 Bronchoscopy done October 28: Cultures: Teri albicans. Negative cytology. Organizing pneumonia on biopsy. -Bronchoscopy reveals several blood clots that was removed. Epinephrine was used. -Severe sepsis from pneumonia: Better IV fluids. Antibiotics discontinued. -Paroxysmal Atrial fibrillation rapid ventricular rate on presentation. In and out of A. fib. Beta valente. [Received: IV heparin. IV Cardizem drip] Eliquis, Lopressor 100 twice a day. Amiodarone discontinued. Cardizem discontinued. Flecainide IV heparin monitoring: Discontinued Follow PTT -Acute COPD exacerbation in a prior smoker: Slow to respond DuoNeb. IV Solu-Medrol 40 mg every 8 -Acute severe hypoxic respiratory failure from pneumonia: Slow to respond Intermittent BiPAP. 7 L high flow nasal cannula -Essential hypertension Zestril 10 mg daily Lopressor 50 mg 3 times a day. Cardizem 30 mg 3 times a day -Restless leg syndrome Mirapex 1 mg twice a day -Depression Zoloft 100 mg daily Primary osteoarthritis multiple joints bilaterally [place] 10 every 6 -Oropharyngeal candidiasis from use of steroids and antibiotics Start Diflucan IV Solu-Medrol 40 mg every 8.. Lopressor, flecainide. Diflucan. discussed with patient. Follow with pulmonary and cardiology. 6 L nasal cannula.
[2021-11-03] MEDS: INSULIN ASPART (NovoLOG) 100 UNIT/ML VIAL SQ SCH ×4 (06:27→21:36)
[2021-11-03 06:29] LABS: Glucose,Whole Blood 89 mg/dL (75-99)
[2021-11-03] MEDS: PRAMIPEXOLE 1 MG TAB PO SCH ×2 (06:33→17:12)
[2021-11-03] MEDS: MORPHINE SULFATE ER 15 MG TABLET PO SCH ×2 (06:33→17:12)
[2021-11-03] MEDS: BUDESONIDE 1 MG/2 ML NEBU INHALATION SCH (07:57)
[2021-11-03] MEDS: FORMOTEROL FUMARATE 20 MCG/2 ML NEBU INHALATION SCH (07:57)
[2021-11-03] MEDS: IPRATROPIUM-ALBUTEROL 3 ML NEB INHALATION SCH ×4 (07:57→20:12)
[2021-11-03] MEDS: LISINOPRIL-HCTZ 10-12.5 MG 1 EACH TAB PO SCH ×2 (08:48→21:36)
[2021-11-03] MEDS: FUROSEMIDE 20 MG TAB PO SCH (08:48)
[2021-11-03] MEDS: FLECAINIDE 50 MG TAB PO SCH ×2 (08:48→21:36)
[2021-11-03] MEDS: FLUCONAZOLE 150 MG TAB PO SCH (08:48)
[2021-11-03] MEDS: APIXABAN 5 MG TAB PO SCH ×2 (08:49→21:35)
[2021-11-03] MEDS: METOPROLOL TARTRATE 50 MG TAB PO SCH ×2 (08:49→21:36)
[2021-11-03] MEDS: methylPREDNISolone SOD SUCCI 40 MG/ML 1 ML VIAL IV SCH (08:49)
[2021-11-03 12:16] LABS: Glucose,Whole Blood 111 mg/dL (75-99)
--- NOTE | 2021-11-03 12:32 | P.PN ---
Subjective Progress Note Date: 11/03/21 Principal diagnosis: Pneumonia, respiratory failure. On 10/28/2021, patient was evaluated today in the ICU, he underwent a bronchoscopy, bronchoalveolar lavage and transbronchial biopsy yesterday, initial findings on the bronchoscopy showed significant amount of old blood in the airway especially in the right mainstem bronchus and left mainstem bronchus, and these were lavaged. And suctioned with difficulty but nonetheless it was all cleared and I was able to visualize basically clear airways without any active bleeding. Then patient underwent transbronchial biopsies and lavage of the right middle lobe and right lower lobe, this was done under fluoroscopy guidance. There was evidence of postoperative bleeding, required another look down the airways, and the bleeding was felt to be not significant however I did apply some epinephrine in the right lower lobe lateral segment where the biopsies were taken mostly. And there was very minimal oozing of blood. However considering the patient was desaturating and required to be on relatively high FiO2, I chose not to extubate him yesterday, and I kept him on mechanical ventilation sedated until this morning. This morning, I took the patient off sedation, and gave the patient a very short trial of weaning on pressure support of 10 and CPAP. And I was at bedside during this period patient tolerated the weaning process quite nicely, then I proceeded to extubating the patient to BiPAP which I will transition to nasal cannula as he tolerates it. In the meantime we'll advance his diet postextubation. Patient was noted to be quite bradycardic yesterday, and some of his cardiac medications for atrial fibrillation remain on hold at present. Patient has sinus bradycardia currently rate in the 50s. Chest x-ray continues to show bilateral infiltrates, but chest x-ray today is improved compared to chest x-ray yesterday post bronchoscopy and biopsy. His CBC is relatively unremarkable. Hemoglobin is 12.3. INR is 1.3. ABG on 60% showed a pO2 of 70 pCO2 46 patient of 7.40 and this was on assist control rate of 20, volume is 500 FiO2 60% and PEEP of 8 Reevaluated today on 10/29/2021, patient remains in the ICU, however he has demonstrated a significant improvement over the last 24 hours. Feeling better, he is on 6 L high flow nasal cannula, not using BiPAP, patient is experiencing intermittent episodes of blood-tinged sputum hence I'm keeping his anticoagulations therapy on hold, his heart rate is normal, he is in sinus rhythm, I am planning to discontinue his amiodarone altogether, but I will place the patient back on his beta blockers metoprolol 50 mg by mouth twice a day. Again considering the patient had chronic history of hemoptysis, I prefer not to place the patient back on any anticoagulation therapy not to mention the patient is presently in normal sinus rhythm. WBC count today is 19.6 hemoglobin 13.4. Electrolytes are normal renal profile is normal. Remains on antibiotics, and we will continue until we get some answer from the cultures from the BAL and get the results of the transbronchial biopsy done Reevaluated today on 10/30/2021, patient remains in the ICU, however he is an overflow, remains on 6 L high flow nasal cannula, O2 saturation is marginal. Patient denies any shortness of breath, he has no more episodes of hemoptysis upon coughing. Chest x-ray is basically about the same. Cultures from the BAL are negative so far. However the patient had organizing pneumonia noted on his transbronchial biopsies. Patient is already on relatively high-dose of Solu- Medrol, and I am keeping him off amiodarone, keeping him on cefepime but discontinuing his vancomycin. He is on multiple medications for his atrial fibrillation with RVR, however will continue to hold Eliquis and we'll continue to hold amiodarone. Patient is on flecainide, metoprolol, and at one point he was on Cardizem. Rate seems to be fairly well controlled on flecainide and metoprolol. WBC count today is 20.3 hemoglobin is 14.2 electrolytes are normal renal profile is normal, transbronchial biopsy report was noted. No evidence of malignancy, there is evidence of organizing pneumonia Progress note dated 10/31/2021. The patient is again seen in room 366. Currently, he's on 7 L high flow nasal O2, with saturations in the low 90s. Clinically, the patient's feeling much better. The patient was in the intensive care unit yesterday, and was transferred out yesterday. His complaints include primarily shortness of breath. The patient apparently underwent bronchoscopy, and had biopsy showing organizing pneumonia. Subsequent to the biopsies, apparently he had some significant bleeding. Currently that has settled down. No new laboratory data today. Chest x-ray from October 30 shows consolidation throughout the right lung field, which is unchanged. The patient remains on budesonide, cefepime, formoterol, DuoNeb nebs, Solu-Medrol, and vancomycin. Progress note dated 11/01/2021. The patient is again seen in room 366. He's currently on 6 L nasal cannula. He is receiving saline at KVO. He is doing much better and feeling much better. The patient underwent bronchoscopy and biopsy showing organizing pneumonia. Subsequent to the biopsies, he had some bleeding, which is settled down. He denies any current bleeding or hemoptysis. No new laboratory data. Progress note dated 11/03/2021. 76-year-old male, again seen in room 366. The patient appears to be doing much better. He's been weaned down to 6 L nasal cannula. He's not receiving any IV fluids. He would like to be discharged home. He states she's feeling much better. He underwent bronchoscopy with transbronchial biopsy showing organizing pneumonia. Subsequent to the biopsies, the patient had some bleeding, and was in the intensive care unit. All that has resolved nicely. No new labs today. Objective - Vital Signs Vital signs: Vital Signs Temp 97.8 F 11/03/21 08:42 Pulse 92 11/03/21 12:05 Resp 22 11/03/21 08:42 BP 141/78 11/03/21 08:42 Pulse Ox 98 11/03/21 08:42 Intake & Output 11/02/21 11/03/21 11/03/21 18:59 06:59 18:59 Intake Total 590 560 240 Output Total 1666 1675 Balance -1076 -1115 240 Intake: Oral 590 560 240 Output: Urine 1666 1675 Other: Voiding Method Indwelling Catheter Indwelling Catheter # Voids 1 # Bowel Movements 1 - Exam No acute distress, oriented 3. Currently on 6 L high flow nasal O2. Saturations are 98 %. HEENT examination is grossly unremarkable. Neck supple. Full range of motion. No adenopathy thyromegaly or neck vein distention. Cardiovascular examination reveals regular rhythm rate. S1-S2 normal. No S3 or S4. No discernible murmur noted. Heart sounds are distant. Heart rate 82 bpm. Lungs reveal bilateral rhonchi, right side worse than left side. No wheezes or crackles. Saturations are excellent on 6 L. Abdomen soft bowel sounds are heard. No masses or tenderness. Extremities are intact. No cyanosis clubbing or edema. Skin is without rash or lesion. Neurologic examination is brief but nonfocal. The patient does have a fine tremor of the upper extremities and hands. - Labs CBC & Chem 7: 11/02/21 07:50 11/02/21 07:50 Labs: Abnormal Lab Results - Last 24 Hours (Table) 11/02/21 11/02/21 11/03/21 Range/Units 16:37 19:41 11:45 POC Glucose (mg/dL) 135 H 151 H 111 H (75-99) mg/dL Assessment and Plan Assessment: Hypoxemic respiratory failure, multifactorial, in part related to bilateral pneumonia, right greater than left, as well as atrial fibrillation with RVR. Status post bronchoscopy and biopsy, showing organizing pneumonia, with subsequent extubation on O2. Elevated troponins, which may reflect non-ST segment elevation myocardial infarctions, versus supply/demand mismatch. Mild/moderate acute kidney injury. History of COPD. History of hypertension. History of obstructive sleep apnea syndrome. History of skin cancer. Prior history of pneumonia. Prior history of tobacco use. Plan: Plan dated 10/14/2021. The patient is started on azithromycin and Rocephin. Corticosteroids are discontinued. Symbicort is added. The patient is on breathing treatments, in addition, the patient is on IV heparin and Cardizem, as per cardiology. We will continue to follow and make recommendations where appropriate. Prognosis is gua rded. Additional recommendations and suggestions are forthcoming. Plan dated 10/31/2021. Currently, the patient has been weaned down to 7 L nasal cannula. Saturations are in the 92-94% range. The patient remains on cefepime and vancomycin. The patient's also receiving Solu-Medrol, and breathing. Apparently the transbronchial biopsy showed evidence of organizing pneumonia. I was unable to pull up the report. Additional recommendations and suggestions are forthcoming. Prognosis is guarded. We will continue to follow make recommendations where appropriate. Plan dated 11/01/2021. Currently, the patient has been weaned down to 6 L. He feels like his breathing is improved. Remains on Pulmicort, formoterol, DuoNeb, and Solu-Medrol. Thus far, all his culture data is negative. There was some Teri on the bronch. washings. Additional recommendations and suggestions are forthcoming. The patient remains on fluconazole, but vancomycin and cefepime have been discontinued. Additional recommendations and suggestions are forthcoming. Prognosis is guarded. We will continue to wean down his oxygen requirements. Plan dated 11/03/2021. Currently, the patient has been weaned down to 6 L nasal cannula. Saturations are 98%. Transbronchial biopsies were consistent with organizing pneumonia. Antibiotics have been discontinued. Medications, labs, and x-rays are all reviewed. The patient would like to be considered for possible discharge. He's feeling much better. After discharge, the patient should follow with me in the office. Pulmicort, and formoterol are discontinued in favor of Symbicort. Solu-Medrol is discontinued in favor of prednisone. Time with Patient: Less than 30
[2021-11-03] MEDS: SODIUM CHLORIDE 0.9% 500 ML 500 ML IV SCH (13:03)
--- NOTE | 2021-11-03 13:03 | P.PN ---
Subjective This is a 76-year-old gentleman with a past medical history significant for hypertension and dyslipidemia and sleep apnea and also chronic obstructive pulmonary disease, presented to the emergency department complaining of shortness of breath. 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 We consulted to see the patient for further evaluation of atrial fibrillation with RVR, abnormal cardiac enzymes and elevated troponin. The patient states that for the last few days he has not been feeding well. In the ER the patient was found to be hypoxic with oxygen saturation of 75% and subsequently he was placed on BiPAP with improvement in his oxygenation. Also he presented to the emergency department he was in atrial fibrillation with RVR and subsequently converted to normal sinus mechanism after he was started on Cardizem IV. The patient underwent a workup including EKG as described earlier showing A. fib with diffuse nonspecific ST and T wave abnormalities. No EKG after the patient was converted to normal sinus mechanism. Also the troponin came in to be elevated. The chest x-ray showed findings consistent with a pneumonia. He underwent a computed tomography scan of the chest which showed multiple findings including no pulmonary embolism, bilateral hilar adenopathy, bilateral infiltrate, and also small to moderate pericardial effusion, heart failure. 10/15/21 Echocardiogram revealed an EF between 50 and 55% with mild mitral and t ricuspid regurgitation, mild aortic valve sclerosis, and moderately enlarged right ventricle with left ventricular hypertrophy. 10/27- Patient underwent Bronch with BAL, revealed organizing pneumonia. After bronch while on vent he has been bradycardic with HR's in the 40's and in and out of afib with conversion pauses up to 4 seconds. Therefore amio, metoprolol and Cardizem was held 10/28- Eliquis has been on hold due to hemoptysis 11/03/2021 Patient seen and examined. He is in no acute distress. He denies any chest pain. Denies any worsening shortness of breath or palpitations. Eliquis restarted yesterday with no evidence of bleeding or hemoptysis. Telemetry reviewed, patient maintaining sinus mechanism with heart rate in the 60s. He was stopped on amiodarone secondary to concern of lung toxicity and therefore was started on flecainide for rhythm control Meds: atorvastatin 80 mg nightly, Eliquis 5 mg twice a day, flecainide 50 mg twice a day, metoprolol tartrate 100 mg twice a day, Lasix 20 mg daily, lisinoprilhydrochlorothiazide 1012.5 mg twice a day Labs from 11/02/21 Sodium 131, potassium 4.0, BUN 20, serum creatinine 0.6, WBC 15.8, platelets 225, hemoglobin 12.8 PHYSICAL EXAM: VITAL SIGNS: Blood pressure 154/72, heart rate 58, afebrile, oxygen saturation is 93% on 6 L high flow nasal cannula GENERAL: Well-developed in no acute distress. NECK: Supple. No JVD or thyromegaly LUNGS: Respirations even and unlabored. Lungs diminished with scattered rhonchi. HEART: Regular rate and rhythm. S1 and S2 heard. EXTREMITIES: Normal range of motion. No clubbing or cyanosis. Peripheral pulses intact. Trace bilateral lower extremity edema ASSESSMENT: Bilateral pneumonia Acute COPD exacerbation Hypoxemia secondary to the above New onset paroxysmal atrial fibrillation with RVR Atypical atrial fluter Type II NSTEMI resulting from demand ischemia from RVR Obstructive sleep apnea Sinus bradycardia PLAN: From a cardiology perspective, patient is stable on current medication/rate control medications. We will follow the patient as needed at this time. Please reach out with any further questions or concerns. Continue metoprolol tartrate 100mg BID, Flecainide 50mg BID, Eliquis 5mg BID Continue statin Avoid amiodarone for now given pulmonary concern of lung toxicity per pulmonary. Patient to follow up with Dr. Betancourt as an outpatient Nurse practitioner note has been reviewed by physician. Signing provider agrees with the documented findings, assessment, and plan of care. Objective - Vital Signs Vital signs: Vital Signs Temp 97.8 F 11/03/21 12:40 Pulse 61 11/03/21 12:40 Resp 18 11/03/21 12:40 BP 156/71 11/03/21 12:40 Pulse Ox 94 L 11/03/21 12:40 Intake & Output 11/02/21 11/03/21 11/03/21 18:59 06:59 18:59 Intake Total 590 560 240 Output Total 1666 1675 Balance -1076 -1115 240 Intake: Oral 590 560 240 Output: Urine 1666 1675 Other: Voiding Method Indwelling Catheter Indwelling Catheter # Voids 1 # Bowel Movements 1 - Labs CBC & Chem 7: 11/02/21 07:50 11/02/21 07:50 Labs: Abnormal Lab Results - Last 24 Hours (Table) 11/02/21 11/02/21 11/03/21 Range/Units 16:37 19:41 11:45 POC Glucose (mg/dL) 135 H 151 H 111 H (75-99) mg/dL
[2021-11-03 16:09] LABS: Glucose,Whole Blood 127 mg/dL (75-99)
--- NOTE | 2021-11-03 16:49 | P.PN ---
Progress Note - Text Progress Note Date: 11/03/21 Chief Complaint: Short of breath Hospital course This is a pleasant 76-year-old patient of Dr. Sultana. Chronic stable medical conditions include hypertension, obstructive sleep apnea, DJD, obesity. Depression, Patient presented increasing shortness of breath for 1 week, wheezing. Cough fever periods Sputum Production. Decrease Appetite Tired Rundown. Symptoms Became Progressively Worse. Found to Pulse Ox of 75% in the ER. Put on a BiPAP. Antibiotics. Bronchodilators. Admitted with bilateral pneumonia right greater than left, atrial fibrillation rapid ventricular rate, sepsis, COPD exacerbation. Started on IV cefepime, bronchodilators, IV steroids, IV heparin, IV Cardizem drip. Patient requiring BiPAP. Patient was changed over from IV heparin to eliquis. Beta blockers added. Patient Requiring high flow oxygen. Vancomycin was added. Cultures c jeancarlos back negative. Patient underwent bronchoscopy. Biopsy was suggestive of organizing pneumonia. Patient left on steroids. Antibiotics discontinued. Incentive spirometry. Patient is found to have significant blood clots on bronchoscopy that was done. Anticoagulation was held. Eventually resumed on November 02. Oxygen requirements slowly coming down. Remains in atrial fibrillation in and out with rapid ventricle rate. November 02: Congested cough. Remains on DuoNeb, eliquis-started today, recommended, Diflucan, IV Solu-Medrol. Oral intake fair. Patient is remained to be in and out of A. fib., On 6 L FiO2 November 03: On 5 L on nasal cannula. Remains on IV Solu-Medrol. Oral intake fair. Discussed with patient and . Hopefully discharge in next 24-48 hours improving Active Medications Acetaminophen (Acetaminophen Tab 325 Mg Tab) 650 mg PO Q6HR PRN PRN Reason: Mild Pain or Fever > 100.5 Last Admin: 10/31/21 04:08 Dose: 650 mg Documented by: Hydrocodone Bitart/Acetaminophen (Hydrocodone/Apap 10-325mg 1 Each Tab) 1 each PO Q6HR PRN PRN Reason: Pain Last Admin: 11/02/21 00:30 Dose: 1 each Documented by: Albuterol/Ipratropium (Ipratropium-Albuterol 3 Ml Neb) 3 ml INHALATION RT-Q4H PRN PRN Reason: Shortness Of Breath Or Wheezing Last Admin: 10/17/21 11:28 Dose: 3 ml Documented by: Albuterol/Ipratropium (Ipratropium-Albuterol 3 Ml Neb) 3 ml INHALATION RT-QID [facility] Last Admin: 11/03/21 15:25 Dose: 3 ml Documented by: Apixaban (Apixaban 5 Mg Tab) 5 mg PO BID [facility]; Protocol Last Admin: 11/03/21 08:49 Dose: 5 mg Documented by: Atorvastatin Calcium (Atorvastatin 80 Mg Tab) 80 mg PO HS [facility] Last Admin: 11/02/21 21:06 Dose: 80 mg Documented by: Budesonide/Formoterol Fumarate (Symbicort 160-4.5 Mcg Inhaler) 2 puff INHALATION RT-BID [facility] Flecainide Acetate (Flecainide 50 Mg Tab) 50 mg PO Q12HR [facility] Last Admin: 11/03/21 08:48 Dose: 50 mg Documented by: Fluconazole (Fluconazole 150 Mg Tab) 150 mg PO DAILY [facility] Last Admin: 11/03/21 08:48 Dose: 150 mg Documented by: Furosemide (Furosemide 20 Mg Tab) 20 mg PO DAILY [facility] Last Admin: 11/03/21 08:48 Dose: 20 mg Documented by: Lisinopril/HCTZ (Lisinopril-Hctz 10-12.5 Mg 1 Each Tab) 1 each PO BID [facility] Last Admin: 11/03/21 08:48 Dose: 1 each Documented by: Hydralazine HCl (Hydralazine Hcl 20 Mg/Ml 1 Ml Vial) 10 mg IVP Q6HR PRN PRN Reason: Blood Pressure - High Last Admin: 10/31/21 09:14 Dose: 10 mg Documented by: Sodium Chloride (Saline 0.9%) 500 mls @ 20 mls/hr IV .Q24H [facility] Last Admin: 11/03/21 13:03 Dose: Not Given Documented by: Insulin Aspart (Insulin Aspart (Novolog) 100 Unit/Ml Vial) 0 unit SQ ACHS [facility]; Protocol Last Admin: 11/03/21 12:38 Dose: Not Given Documented by: Metoprolol Tartrate (Metoprolol Tartrate 50 Mg Tab) 100 mg PO BID [facility] Last Admin: 11/03/21 08:49 Dose: 100 mg Documented by: Morphine Sulfate (Morphine Sulfate Er 15 Mg Tablet) 15 mg PO BID@0600,1600 [facility]; Protocol Last Admin: 11/03/21 06:33 Dose: 15 mg Documented by: Naloxone HCl (Naloxone 0.4 Mg/Ml 1 Ml Vial) 0.2 mg IV Q2M PRN PRN Reason: Opioid Reversal Ondansetron HCl (Ondansetron 4 Mg Tab) 4 mg PO Q4H PRN PRN Reason: Nausea And Vomiting Last Admin: 10/30/21 05:24 Dose: 4 mg Documented by: Pramipexole Dihydrochloride (Pramipexole 1 Mg Tab) 1 mg PO BID@0600,1600 [facility] Last Admin: 11/03/21 06:33 Dose: 1 mg Documented by: Prednisone (Prednisone 20 Mg Tab) 20 mg PO DAILY [facility] Sertraline HCl (Sertraline 100 Mg Tab) 100 mg PO DAILY@1600 [facility] Last Admin: 11/02/21 16:20 Dose: 100 mg Documented by: Past medical history to include: COPD, hypertension, obstructive sleep apnea, DJD, skin cancer Social history: . Smoked for 30 years stopped in 1979. Family history: Reviewed, noncontributory to presentation Physical examination: VITAL SIGNS: 97.8, 61, 18, 156/71, 94% on 5 L GENERAL: Sitting edge of the bed awake, better shortness of breath Oral cavity: White patches greatly resolved EYES: Pupils equal. Conjunctiva normal. NECK: JVD unable to assess; masses not palpable. HEART: First second sounds normal; no edema. LUNGS: Respiratory rate increased decreased breath sounds, decreased expiratory crackles ABDOMEN: Soft, nontender, liver spleen not palpable, no masses palpable. PSYCH: AO 3, mood and affect normal MUSCULOSKELETAL:No Clubbing/cyanosis;muscles-grossly intact INVESTIGATIONS, reviewed in the clinical context: November 02: White count 15.8 hemoglobin 12.8 potassium 4 creatinine 0.62 Bronchial washings: Teri Albicans. Cytology: No malignant cells. Biopsy: Features of organizing pneumonia. October 30: White count 20.3 hemoglobin 14.2 potassium 4.1 BUN 22 creatinine 0.5 for White count 25.6 hemoglobin 15.9 platelets 324 increased neutrophils d-dimer 7.48 sodium 138 potassium 4.2. 38 creatinine 1.53 lactic acid 3.8 Troponin I 2.0, 1.7, 1.2 Coronavirus [PCR]: Not detected EKG tracing personally reviewed by me-atrial fibrillation ST-T wave changes, rate 138 Chest angiogram chest: Moderate emphysema. Extensive patchy and confluent consolidation throughout the right lung. Some of the left side 2. Hilar lymphadenopathy. Chest x-ray film personally reviewed by me-extensive infiltrate on the right mid zone and some on the left side 2-D echocardiogram: EF 50-55% Assessment and plan: -Organizing pneumonia : Improving Cefepime-/ IV vancomycin-discontinued . Bronchoscopy done October 28: Cultures: Teri albicans. Negative cytology. Organizing pneumonia on biopsy. -Bronchoscopy reveals several blood clots that was removed. Epinephrine was used. -Severe sepsis from pneumonia: Better IV fluids. Antibiotics discontinued. -Paroxysmal Atrial fibrillation rapid ventricular rate on presentation. In and out of A. fib. Beta valente. [Received: IV heparin. IV Cardizem drip] Eliquis, Lopressor 100 twice a day. Amiodarone discontinued. Cardizem discontinued. Flecainide IV heparin monitoring: Discontinued Follow PTT -Acute COPD exacerbation in a prior smoker: Slow to respond DuoNeb. IV Solu-Medrol 40 mg every 8 -Acute severe hypoxic respiratory failure from pneumonia: Slow to respond Intermittent BiPAP. 7 L high flow nasal cannula -Essential hypertension Zestril 10 mg daily Lopressor 50 mg 3 times a day. Cardizem 30 mg 3 times a day -Restless leg syndrome Mirapex 1 mg twice a day -Depression Zoloft 100 mg daily Primary osteoarthritis multiple joints bilaterally Estelline 10 every 6 -Oropharyngeal candidiasis from use of steroids and antibiotics Start Diflucan IV Solu-Medrol 40 mg every 8.. Pulmonary decrease the prednisone to 20 mg. We'll watch further 24 hours. Increase activity. Hopefully discharge in next 24 hours.
[2021-11-03] MEDS: SERTRALINE 100 MG TAB PO SCH (17:12)
[2021-11-03] MEDS: SYMBICORT 160-4.5 MCG INHALER INHALATION SCH ×3 (20:12→20:50)
[2021-11-03 20:59] LABS: Glucose,Whole Blood 113 mg/dL (75-99)
[2021-11-03] MEDS: ATORVASTATIN 80 MG TAB PO SCH (21:36)
[2021-11-03] MEDS: HYDROcodone/APAP 10-325MG 1 EACH TAB PO PRN (21:39)
[2021-11-04] MEDS: MORPHINE SULFATE ER 15 MG TABLET PO SCH ×2 (05:25→16:41)
[2021-11-04] MEDS: PRAMIPEXOLE 1 MG TAB PO SCH ×2 (06:05→16:41)
[2021-11-04] MEDS: INSULIN ASPART (NovoLOG) 100 UNIT/ML VIAL SQ SCH ×5 (06:59→21:40)
[2021-11-04 07:29] LABS: Glucose,Whole Blood 152 mg/dL (75-99)
[2021-11-04] MEDS: predniSONE 20 MG TAB PO SCH (08:26)
[2021-11-04] MEDS: FUROSEMIDE 20 MG TAB PO SCH (08:26)
[2021-11-04] MEDS: APIXABAN 5 MG TAB PO SCH ×2 (08:26→21:40)
[2021-11-04] MEDS: METOPROLOL TARTRATE 50 MG TAB PO SCH ×2 (08:27→21:40)
[2021-11-04] MEDS: FLUCONAZOLE 150 MG TAB PO SCH (08:27)
[2021-11-04] MEDS: LISINOPRIL-HCTZ 10-12.5 MG 1 EACH TAB PO SCH ×2 (08:28→21:40)
[2021-11-04] MEDS: FLECAINIDE 50 MG TAB PO SCH ×2 (08:58→21:40)
[2021-11-04] MEDS: SYMBICORT 160-4.5 MCG INHALER INHALATION SCH ×2 (09:36→20:24)
[2021-11-04] MEDS: IPRATROPIUM-ALBUTEROL 3 ML NEB INHALATION SCH ×4 (09:36→20:24)
[2021-11-04 11:46] LABS: Glucose,Whole Blood 159 mg/dL (75-99)
[2021-11-04] MEDS: SERTRALINE 100 MG TAB PO SCH (16:42)
[2021-11-04 16:44] LABS: Glucose,Whole Blood 152 mg/dL (75-99)
--- NOTE | 2021-11-04 17:53 | P.PN ---
Subjective Progress Note Date: 11/04/21 76-year-old male with a history of COPD, who presents to the emergency department on October 13, complaining of shortness of breath. The patient also complains of cough, dizziness, fever, chills, and phlegm production. The patient has been feeling well as mentioned above for at least 2-3 weeks. The patient was evaluated in the emergency department. He was found have atrial fibrillation with rapid ventricular response. In addition, his chest x-ray and CAT scan suggested pneumonia, with significant consolidation and abnormalities noted more so in the right lung that in the left. The patient has been vaccinated fully. We saw him in the emergency department, room 6, he was on BiPAP, with settings of IPAP 12, EPAP 6, and 60%. The patient was on IV heparin via weight based protocol, and a Cardizem drip at 15 mg an hour. The patient was lying flat in bed. He did not appear to have a great deal of respiratory difficulty. White count 22,000, hemoglobin 13, hematocrit 42.1, platelet count 326,000. PT 13, INR 1.2, PTT 38.3. D-dimer was 7.48. Sodium, potassium, chloride, CO2, and anion gap are all normal BUN was 38 creatinine of 1.53. Troponin was elevated at 2.06, 1.74, and 1.24. Testing for mae virus was negative. He was no pulmonary embolism on CT angiogram. In addition, there was mediastinal bilateral hilar lymphadenopathy, measuring up to 5.2 cm. The patient is seen today 10/15/2021 in follow-up on the selective care unit. He is currently resting comfortably in bed. He is alert in no acute distress. Off the BiPAP and currently on 9 L high flow nasal cannula. He has normal saline running at 100 ML's per hour. He is feeling a bit better today compared to yesterday. Still with a loose nonproductive cough. Sputum culture revealed no growth. Blood cultures reveal no growth. Urine legionella antigen negative. He remains on a heparin drip. Continued on Symbicort, DuoNeb inhalations, antibiotics in the form of ceftriaxone and azithromycin. Patient is seen today 10/16/2021 in follow-up on the selective care unit. He is currently resting fairly comfortably in bed. He is on BiPAP 12/660% FiO2. He has normal saline running at 20 ML's per hour. Continued on a heparin drip. Blood cultures revealed no growth. Sputum cultures revealed no growth. White count 24.6. Hemoglobin 11.9. Sodium 141. Potassium 4.2. Creatinine 0.67. He remains on DuoNeb inhalations, Symbicort, antibiotics in the form of azithromycin and ceftriaxone. This x-ray continues to show bilateral patchy air space disease right greater than left. Progress note dated 10/31/2021. The patient is again seen in room 366. Currently, he's on 7 L high flow nasal O2, with saturations in the low 90s. Clinically, the patient's feeling much better. The patient was in the intensive care unit yesterday, and was transferred out yesterday. His complaints include primarily shortness of breath. The patient apparently underwent bronchoscopy, and had biopsy showing organizing pneumonia. Subsequent to the biopsies, apparently he had some significant bleeding. Currently that has settled down. No new laboratory data today. Chest x-ray from October 30 shows consolidation throughout the right lung field, which is unchanged. The patient remains on budesonide, cefepime, formoterol, DuoNeb nebs, Solu-Medrol, and vancomycin. Progress note dated 11/01/2021. The patient is again seen in room 366. He's currently on 6 L nasal cannula. He is receiving saline at KVO. He is doing much better and feeling much better. The patient underwent bronchoscopy and biopsy showing organizing pneumonia. Subsequent to the biopsies, he had some bleeding, which is settled down. He denies any current bleeding or hemoptysis. No new laboratory data. The patient is seen today November 02 2021 in follow-up on the regular medical floor. He is currently resting comfortably in bed. Awake and alert in no acute distress. He's on 6 L high flow nasal cannula. His bronchoscopy with biopsy showed organizing pneumonia. He is feeling better daily. He is continued on IV Solu-Medrol, DuoNeb inhalations, Pulmicort and Perforomist inhalations. White count 15.8. Hemoglobin 12.8. Sodium 131. Potassium 4.0. Creatinine 0.62. The patient is seen today 11/04/2021 in follow-up on the regular medical floor. He is resting comfortably in bed. Awake and alert in no acute distress. Currently on 6 L high flow nasal cannula. Bronchial wash cultures positive for Teri only. Blood glucose 152. He is continued on DuoNeb inhalations, Symbicort, prednisone taper. Anticoagulated with Eliquis. Objective - Vital Signs Vital signs: Vital Signs Temp 98.0 F 11/04/21 14:00 Pulse 62 11/04/21 16:53 Resp 18 11/04/21 16:53 BP 108/56 11/04/21 14:00 Pulse Ox 93 L 11/04/21 16:38 Intake & Output 11/03/21 11/04/21 11/04/21 18:59 06:59 18:59 Intake Total 680 Output Total 600 1550 Balance 80 -1550 Intake: Oral 680 Output: Urine 600 1550 Other: Voiding Method Indwelling Catheter - Exam GENERAL EXAM: Alert, very pleasant 76-year-old gentleman, on 6 L high flow nasal cannula, fairly comfortable in no apparent distress. HEAD: Normocephalic. EYES: Normal reaction of pupils, equal size. NOSE: Clear with pink turbinates. THROAT: No erythema or exudates. NECK: No masses, no JVD. CHEST: No chest wall deformity. LUNGS: Equal air entry with coarse bilateral rhonchi CVS: S1 and S2 normal with no audible murmur, regular rhythm. ABDOMEN: No hepatosplenomegaly, normal bowel sounds, no guarding or rigidity. SPINE: No scoliosis or deformity SKIN: No rashes CENTRAL NERVOUS SYSTEM: No focal deficits, tone is normal in all 4 extremities. EXTREMITIES: There is no peripheral edema. No clubbing, no cyanosis. Periphera l pulses are intact. - Labs CBC & Chem 7: 11/02/21 07:50 11/02/21 07:50 Labs: Abnormal Lab Results - Last 24 Hours (Table) 11/03/21 11/04/21 11/04/21 Range/Units 20:51 07:28 11:44 POC Glucose (mg/dL) 113 H 152 H 159 H (75-99) mg/dL 11/04/21 Range/Units 16:43 POC Glucose (mg/dL) 152 H (75-99) mg/dL Assessment and Plan Assessment: 1 Acute hypoxemic respiratory failure, multifactorial, in part related to bilateral pneumonia, right greater than left, completed ceftriaxone and azithromycin. Bronchoscopy revealed organizing pneumonia. 2 Atrial fibrillation with RVR. Currently better controlled. Maintained on Eliquis. 3 Mild/moderate acute kidney injury. 4 History of COPD. 5 History of hypertension. 6 History of obstructive sleep apnea syndrome. 7 History of skin cancer. 8 Prior history of pneumonia. 9 Prior history of tobacco use. Plan: The patient was seen and evaluated Improved and on 6 L No further hemoptysis Continued on DuoNeb inhalations Continue Symbicort, prednisone Anticoagulated with Eliquis Titrate the FiO2 as tolerated Will most likely need home oxygen Home once cleared by medicine We'll continue to follow I, the cosigning physician, performed a history & physical examination of the patient. Lungs sounds with few scattered rhonchi. Maintaining O2 saturations in the 90s on 6 L high flow nasal cannula. I discussed the assessment and plan of care with my nurse practitioner, Margy Reyes. I attest to the above note as dictated by her. I have personally seen and examined the patient, performed the documentation and the assessment and plan as written. Number of minutes spent on the visit: 10.
[2021-11-04 20:31] LABS: Glucose,Whole Blood 151 mg/dL (75-99)
[2021-11-04] MEDS: ATORVASTATIN 80 MG TAB PO SCH (21:40)
[2021-11-04] MEDS: SODIUM CHLORIDE 0.9% 500 ML 500 ML IV SCH (22:15)
[2021-11-05] MEDS: MORPHINE SULFATE ER 15 MG TABLET PO SCH ×2 (05:48→15:50)
[2021-11-05] MEDS: PRAMIPEXOLE 1 MG TAB PO SCH ×2 (05:48→15:50)
[2021-11-05 06:57] LABS: Glucose,Whole Blood 99 mg/dL (75-99)
[2021-11-05] MEDS: INSULIN ASPART (NovoLOG) 100 UNIT/ML VIAL SQ SCH ×4 (08:19→20:58)
[2021-11-05] MEDS: SYMBICORT 160-4.5 MCG INHALER INHALATION SCH ×2 (08:39→20:42)
[2021-11-05] MEDS: IPRATROPIUM-ALBUTEROL 3 ML NEB INHALATION SCH ×4 (08:39→20:42)
[2021-11-05 08:54] LABS: Basophils # (A) 0.02 X 10*3/uL (0.00-0.10); Basophils % (A) 0.1 %; Eosinophils # (A) 0.11 X 10*3/uL (0.04-0.35); Eosinophils % (A) 0.7 %; HCT 43.4 % (39.6-50.0); HGB 13.9 g/dL (13.0-17.0); Immature Grans, Automated 0.7 %; Lymphocytes # (A) 0.78 X 10*3/uL (0.90-5.00); Lymphocytes % (A) 5.2 %; MCH 32.4 pg (27.0-32.0); MCV 101.2 fL (80.0-97.0); Mean Platelet Volume 10.1 fL (9.5-12.2); Monocytes # (A) 0.59 X 10*3/uL (0.20-1.00); Monocytes % (A) 3.9 %; NRBC Per 100 WBC 0 /100 WBCS (0.0-0.0); Neutrophils # (A) 13.44 X 10*3/uL (1.80-7.70); Neutrophils % (A) 89.4 %; Platelet Count 194 X 10*3/uL (140-440); RBC 4.29 X 10*6/uL (4.40-5.60); RDW 15.8 % (11.5-14.5); WBC 15.04 X 10*3/uL (4.50-10.00)
[2021-11-05] MEDS: APIXABAN 5 MG TAB PO SCH ×2 (08:57→21:02)
[2021-11-05] MEDS: METOPROLOL TARTRATE 50 MG TAB PO SCH ×2 (08:57→21:02)
[2021-11-05] MEDS: predniSONE 20 MG TAB PO SCH (08:57)
[2021-11-05] MEDS: FLUCONAZOLE 150 MG TAB PO SCH (08:57)
[2021-11-05] MEDS: LISINOPRIL-HCTZ 10-12.5 MG 1 EACH TAB PO SCH ×2 (08:57→21:02)
[2021-11-05] MEDS: FLECAINIDE 50 MG TAB PO SCH ×2 (08:57→21:02)
[2021-11-05] MEDS: FUROSEMIDE 20 MG TAB PO SCH (08:57)
[2021-11-05] MEDS: SODIUM CHLORIDE 0.9% 500 ML 500 ML IV SCH (08:58)
[2021-11-05 09:07] LABS: African American GFR (CKD) 114.8 (60.0-200.0); Albumin 3.7 g/dL (3.8-4.9); Albumin/Globulin Ratio 1.76 (1.60-3.17); Anion Gap 12.2 mmol/L (10.00-18.00); BUN/Creat Ratio 39.67 Ratio (12.00-20.00); Blood Urea Nitrogen 23.8 mg/dL (9.0-27.0); Calcium 8.3 mg/dL (8.7-10.3); Carbon Dioxide 29.8 mmol/L (20.0-27.5); Globulin 2.1 g/dL (1.6-3.3); Potassium 4.3 mmol/L (3.5-5.5); Total Bilirubin 0.9 mg/dL (0.30-1.20); Total Protein 5.8 g/dL (6.2-8.2)
[2021-11-05 11:56] LABS: Glucose,Whole Blood 131 mg/dL (75-99)
--- NOTE | 2021-11-05 15:49 | P.PN ---
Subjective Progress Note Date: 11/05/21 76-year-old male with a history of COPD, who presents to the emergency department on October 13, complaining of shortness of breath. The patient also complains of cough, dizziness, fever, chills, and phlegm production. The patient has been feeling well as mentioned above for at least 2-3 weeks. The patient was evaluated in the emergency department. He was found have atrial fibrillation with rapid ventricular response. In addition, his chest x-ray and CAT scan suggested pneumonia, with significant consolidation and abnormalities noted more so in the right lung that in the left. The patient has been vaccinated fully. We saw him in the emergency department, room 6, he was on BiPAP, with settings of IPAP 12, EPAP 6, and 60%. The patient was on IV heparin via weight based protocol, and a Cardizem drip at 15 mg an hour. The patient was lying flat in bed. He did not appear to have a great deal of respiratory difficulty. White count 22,000, hemoglobin 13, hematocrit 42.1, platelet count 326,000. PT 13, INR 1.2, PTT 38.3. D-dimer was 7.48. Sodium, potassium, chloride, CO2, and anion gap are all normal BUN was 38 creatinine of 1.53. Troponin was elevated at 2.06, 1.74, and 1.24. Testing for mae virus was negative. He was no pulmonary embolism on CT angiogram. In addition, there was mediastinal bilateral hilar lymphadenopathy, measuring up to 5.2 cm. The patient is seen today 10/15/2021 in follow-up on the selective care unit. He is currently resting comfortably in bed. He is alert in no acute distress. Off the BiPAP and currently on 9 L high flow nasal cannula. He has normal saline running at 100 ML's per hour. He is feeling a bit better today compared to yesterday. Still with a loose nonproductive cough. Sputum culture revealed no growth. Blood cultures reveal no growth. Urine legionella antigen negative. He remains on a heparin drip. Continued on Symbicort, DuoNeb inhalations, antibiotics in the form of ceftriaxone and azithromycin. Patient is seen today 10/16/2021 in follow-up on the selective care unit. He is currently resting fairly comfortably in bed. He is on BiPAP 12/660% FiO2. He has normal saline running at 20 ML's per hour. Continued on a heparin drip. Blood cultures revealed no growth. Sputum cultures revealed no growth. White count 24.6. Hemoglobin 11.9. Sodium 141. Potassium 4.2. Creatinine 0.67. He remains on DuoNeb inhalations, Symbicort, antibiotics in the form of azithromycin and ceftriaxone. This x-ray continues to show bilateral patchy air space disease right greater than left. Progress note dated 10/31/2021. The patient is again seen in room 366. Currently, he's on 7 L high flow nasal O2, with saturations in the low 90s. Clinically, the patient's feeling much better. The patient was in the intensive care unit yesterday, and was transferred out yesterday. His complaints include primarily shortness of breath. The patient apparently underwent bronchoscopy, and had biopsy showing organizing pneumonia. Subsequent to the biopsies, apparently he had some significant bleeding. Currently that has settled down. No new laboratory data today. Chest x-ray from October 30 shows consolidation throughout the right lung field, which is unchanged. The patient remains on budesonide, cefepime, formoterol, DuoNeb nebs, Solu-Medrol, and vancomycin. Progress note dated 11/01/2021. The patient is again seen in room 366. He's currently on 6 L nasal cannula. He is receiving saline at KVO. He is doing much better and feeling much better. The patient underwent bronchoscopy and biopsy showing organizing pneumonia. Subsequent to the biopsies, he had some bleeding, which is settled down. He denies any current bleeding or hemoptysis. No new laboratory data. The patient is seen today November 02 2021 in follow-up on the regular medical floor. He is currently resting comfortably in bed. Awake and alert in no acute distress. He's on 6 L high flow nasal cannula. His bronchoscopy with biopsy showed organizing pneumonia. He is feeling better daily. He is continued on IV Solu-Medrol, DuoNeb inhalations, Pulmicort and Perforomist inhalations. White count 15.8. Hemoglobin 12.8. Sodium 131. Potassium 4.0. Creatinine 0.62. The patient is seen today 11/04/2021 in follow-up on the regular medical floor. He is resting comfortably in bed. Awake and alert in no acute distress. Currently on 6 L high flow nasal cannula. Bronchial wash cultures positive for Teri only. Blood glucose 152. He is continued on DuoNeb inhalations, Symbicort, prednisone taper. Anticoagulated with Eliquis. The patient is seen today 11/05/2021 in follow-up on the regular medical floor. He is currently sitting up in bed. Awake and alert in no acute distress. is at the bedside. He is on 5 L high flow nasal cannula with O2 saturations at 96%. He's been afebrile. Hemodynamically stable. Bronchial wash cultures were negative other than for Teri. White count 15.0. Hemoglobin 13.9. Sodium 137. Potassium 4.3. Creatinine 0.6. Glucose 114. AST 22. ALT 55. He remains on DuoNeb inhalations, Symbicort, prednisone. Anticoagulated with Eliquis. Objective - Vital Signs Vital signs: Vital Signs Temp 97.8 F 11/05/21 14:00 Pulse 50 L 11/05/21 14:00 Resp 16 11/05/21 14:00 BP 114/63 11/05/21 14:00 Pulse Ox 96 11/05/21 14:00 Intake & Output 11/04/21 11/05/21 11/05/21 18:59 06:59 18:59 Intake Total 1080 1652 Output Total 800 650 Balance 280 1002 Intake: Oral 1080 1652 Output: Urine 800 650 Other: Voiding Method Urinal Urinal # Voids 4 2 - Exam GENERAL EXAM: Alert, very pleasant 76-year-old gentleman, on 5 L high flow nasal cannula, fairly comfortable in no apparent distress. HEAD: Normocephalic. EYES: Normal reaction of pupils, equal size. NOSE: Clear with pink turbinates. THROAT: No erythema or exudates. NECK: No masses, no JVD. CHEST: No chest wall deformity. LUNGS: Equal air entry with coarse bilateral rhonchi CVS: S1 and S2 normal with no audible murmur, regular rhythm. ABDOMEN: No hepatosplenomegaly, normal bowel sounds, no guarding or rigidity. SPINE: No scoliosis or deformity SKIN: No rashes CENTRAL NERVOUS SYSTEM: No focal deficits, tone is normal in all 4 extremities. EXTREMITIES: There is no peripheral edema. No clubbing, no cyanosis. Peripheral pulses are intact. - Labs CBC & Chem 7: 11/05/21 04:37 11/05/21 04:37 Labs: Abnormal Lab Results - Last 24 Hours (Table) 11/04/21 11/04/21 11/05/21 Range/Units 16:43 20:29 04:37 WBC 15.04 H (4.50-10.00) X 10*3/uL RBC 4.29 L (4.40-5.60) X 10*6/uL MCV 101.2 H (80.0-97.0) fL MCH 32.4 H (27.0-32.0) pg RDW 15.8 H (11.5-14.5) % Immature Gran # 0.10 H (0.00-0.04) X 10*3/uL Neutrophils # 13.44 H (1.80-7.70) X 10*3/uL Lymphocytes # 0.78 L (0.90-5.00) X 10*3/uL Chloride (96-109) mmol/L Carbon Dioxide (20.0-27.5) mmol/L BUN/Creatinine Ratio (12.00-20.00) Ratio Glucose (70-110) mg/dL POC Glucose (mg/dL) 152 H 151 H (75-99) mg/dL Calcium (8.7-10.3) mg/dL ALT (10-49) U/L Alkaline Phosphatase (41-126) U/L Total Protein (6.2-8.2) g/dL Albumin (3.8-4.9) g/dL 11/05/21 11/05/21 Range/Units 04:37 11:54 WBC (4.50-10.00) X 10*3/uL RBC (4.40-5.60) X 10*6/uL MCV (80.0-97.0) fL MCH (27.0-32.0) pg RDW (11.5-14.5) % Immature Gran # (0.00-0.04) X 10*3/uL Neutrophils # (1.80-7.70) X 10*3/uL Lymphocytes # (0.90-5.00) X 10*3/uL Chloride 95 L (96-109) mmol/L Carbon Dioxide 29.8 H (20.0-27.5) mmol/L BUN/Creatinine Ratio 39.67 H (12.00-20.00) Ratio Glucose 114 H (70-110) mg/dL POC Glucose (mg/dL) 131 H (75-99) mg/dL Calcium 8.3 L (8.7-10.3) mg/dL ALT 55 H (10-49) U/L Alkaline Phosphatase 132 H (41-126) U/L Total Protein 5.8 L (6.2-8.2) g/dL Albumin 3.7 L (3.8-4.9) g/dL Assessment and Plan Assessment: 1 Acute hypoxemic respiratory failure, multifactorial, in part related to bilateral pneumonia, right greater than left, completed ceftriaxone and azithromycin. Bronchoscopy revealed organizing pneumonia. Cultures negative other than for Teri 2 Atrial fibrillation with RVR. Currently better controlled. Maintained on Eliquis. 3 Mild/moderate acute kidney injury. 4 History of COPD. 5 History of hypertension. 6 History of obstructive sleep apnea syndrome. 7 History of skin cancer. 8 Prior history of pneumonia. 9 Prior history of tobacco use. Plan: The patient was seen and evaluated Improved and on 5 L No further hemoptysis Continued on DuoNeb inhalations Continue Symbicort, prednisone Anticoagulated with Eliquis Titrate the FiO2 as tolerated Will most likely need home oxygen Home once cleared by medicine We'll continue to follow I, the cosigning physician, performed a history & physical examination of the patient. Lungs sounds with few scattered rhonchi. Maintaining O2 saturations in the 90s on 5 L high flow nasal cannula. I discussed the assessment and plan of care with my nurse practitioner, Margy Reyes. I attest to the above note as dictated by her. I have personally seen and examined the patient, performed the documentation and the assessment and plan as written. Number of minutes spent on the visit: 10.
[2021-11-05] MEDS: SERTRALINE 100 MG TAB PO SCH (15:50)
[2021-11-05 16:15] LABS: Glucose,Whole Blood 131 mg/dL (75-99)
--- NOTE | 2021-11-05 20:54 | P.PN ---
Subjective Progress Note Date: 11/04/21 76-year-old male with a history of COPD, who presents to the emergency department on October 13, complaining of shortness of breath. The patient also complains of cough, dizziness, fever, chills, and phlegm production. The patient has been feeling well as mentioned above for at least 2-3 weeks. The patient was evaluated in the emergency department. He was found have atrial fibrillation with rapid ventricular response. In addition, his chest x-ray and CAT scan suggested pneumonia, with significant consolidation and abnormalities noted more so in the right lung that in the left. The patient has been vaccinated fully. We saw him in the emergency department, room 6, he was on BiPAP, with settings of IPAP 12, EPAP 6, and 60%. The patient was on IV heparin via weight based protocol, and a Cardizem drip at 15 mg an hour. The patient was lying flat in bed. He did not appear to have a great deal of respiratory difficulty. White count 22,000, hemoglobin 13, hematocrit 42.1, platelet count 326,000. PT 13, INR 1.2, PTT 38.3. D-dimer was 7.48. Sodium, potassium, chloride, CO2, and anion gap are all normal BUN was 38 creatinine of 1.53. Troponin was elevated at 2.06, 1.74, and 1.24. Testing for mae virus was negative. He was no pulmonary embolism on CT angiogram. In addition, there was mediastinal bilateral hilar lymphadenopathy, measuring up to 5.2 cm. 11/04/2021 Patient is seen and evaluated in follow-up at bedside. He is resting comfortably in bed. Awake and alert in no acute distress. Currently on 6 L high flow nasal cannula. Bronchial wash cultures positive for Teri only. Blood glucose 152. He is continued on DuoNeb inhalations, Symbicort, prednisone taper. Continue with anticoagulation with Eliquis Plan is to continue to titrate FiO2 as able; currently on 6 L high flow nasal cannula; patient will be a candidate for home O2 Objective - Vital Signs Vital signs: Vital Signs Temp 97.8 F 11/04/21 08:00 Pulse 68 11/04/21 12:38 Resp 16 11/04/21 08:27 BP 104/59 11/04/21 08:00 Pulse Ox 95 11/04/21 08:00 Intake & Output 11/03/21 11/04/21 11/04/21 18:59 06:59 18:59 Intake Total 680 Output Total 600 1550 Balance 80 -1550 Intake: Oral 680 Output: Urine 600 1550 Other: Voiding Method Indwelling Catheter - Exam GENERAL EXAM: Alert, very pleasant 76-year-old gentleman, on 6 L high flow nasal cannula, fairly comfortable in no apparent distress. HEAD: Normocephalic. NECK: No masses, no JVD. CHEST: No chest wall deformity. LUNGS: Equal air entry with coarse bilateral rhonchi CVS: S1 and S2 normal with no audible murmur, regular rhythm. ABDOMEN: No hepatosplenomegaly, normal bowel sounds, no guarding or rigidity. CENTRAL NERVOUS SYSTEM: No focal deficits, tone is normal in all 4 extremities. EXTREMITIES: There is no peripheral edema. No clubbing, no cyanosis. Peripheral pulses are intact. - Labs CBC & Chem 7: 11/05/21 04:37 11/05/21 04:37 Labs: Abnormal Lab Results - Last 24 Hours (Table) 11/03/21 11/03/21 11/04/21 Range/Units 16:07 20:51 07:28 POC Glucose (mg/dL) 127 H 113 H 152 H (75-99) mg/dL 11/04/21 Range/Units 11:44 POC Glucose (mg/dL) 159 H (75-99) mg/dL Assessment and Plan Assessment: 1. Acute hypoxemic respiratory failure; multifactorial - Bilateral pneumonia - Patient is status post bronchoscopy which revealed organizing pneumonia - Patient has completed a course of ceftriaxone and azithromycin - Remains on O2 at 6 L per nasal cannula; remains on DuoNeb nebulizer treatments, Symbicort and steroids - Plan to continue to titrate O2 as able 2. Atrial fibrillation with RVR; remains rate controlled; continue anticoagulation with Eliquis 3. Acute renal injury; continue with slow IV fluid hydration; monitor strict CHING's, daily weights, renal function and electrolytes 4. Hypertension; stable on current regimen 5. Obstructive sleep apnea/COPD; management as indicated above DVT prophylaxis; SCDs/Eliquis CODE STATUS; full code
--- NOTE | 2021-11-05 20:55 | P.PN ---
Subjective Progress Note Date: 11/05/21 76-year-old male with a history of COPD, who presents to the emergency department on October 13, complaining of shortness of breath. The patient also complains of cough, dizziness, fever, chills, and phlegm production. The patient has been feeling well as mentioned above for at least 2-3 weeks. The patient was evaluated in the emergency department. He was found have atrial fibrillation with rapid ventricular response. In addition, his chest x-ray and CAT scan suggested pneumonia, with significant consolidation and abnormalities noted more so in the right lung that in the left. The patient has been vaccinated fully. We saw him in the emergency department, room 6, he was on BiPAP, with settings of IPAP 12, EPAP 6, and 60%. The patient was on IV heparin via weight based protocol, and a Cardizem drip at 15 mg an hour. The patient was lying flat in bed. He did not appear to have a great deal of respiratory difficulty. White count 22,000, hemoglobin 13, hematocrit 42.1, platelet count 326,000. PT 13, INR 1.2, PTT 38.3. D-dimer was 7.48. Sodium, potassium, chloride, CO2, and anion gap are all normal BUN was 38 creatinine of 1.53. Troponin was elevated at 2.06, 1.74, and 1.24. Testing for mae virus was negative. He was no pulmonary embolism on CT angiogram. In addition, there was mediastinal bilateral hilar lymphadenopathy, measuring up to 5.2 cm. 11/04/2021 Patient is seen and evaluated in follow-up at bedside. He is resting comfortably in bed. Awake and alert in no acute distress. Currently on 6 L high flow nasal cannula. Bronchial wash cultures positive for Teri only. Blood glucose 152. He is continued on DuoNeb inhalations, Symbicort, prednisone taper. Continue with anticoagulation with Eliquis Plan is to continue to titrate FiO2 as able; currently on 6 L high flow nasal cannula; patient will be a candidate for home O2 11/05/2021 Patient is seen and evaluated in follow-up on the regular medical floor. He is currently sitting up in bed. Awake and alert in no acute distress. is at the bedside. Currently on on 5 L high flow nasal cannula with O2 saturations at 96%. He's been afebrile. Hemodynamically stable. Bronchial wash cultures were negative other than for Teri. White count 15.0. Hemoglobin 13.9. Sodium 137. Potassium 4.3. Creatinine 0.6. Glucose 114. AST 22. ALT 55. Patient remains on DuoNeb inhalations, Symbicort, prednisone. Anticoagulated with Eliquis. We will continue to titrate O2 as able; patient will need arrangements are home O2 therapy once able to maintain O2 saturation above 90% on 4 L Objective - Vital Signs Vital signs: Vital Signs Temp 97.8 F 11/05/21 14:00 Pulse 50 L 11/05/21 14:00 Resp 16 11/05/21 14:00 BP 114/63 11/05/21 14:00 Pulse Ox 96 11/05/21 14:00 Intake & Output 11/04/21 11/05/21 11/05/21 18:59 06:59 18:59 Intake Total 1080 1652 Output Total 800 650 Balance 280 1002 Intake: Oral 1080 1652 Output: Urine 800 650 Other: Voiding Method Urinal Urinal # Voids 4 2 - Exam GENERAL EXAM: Alert, very pleasant 76-year-old gentleman, on 6 L high flow nasal cannula, fairly comfortable in no apparent distress. HEAD: Normocephalic. NECK: No masses, no JVD. CHEST: No chest wall deformity. LUNGS: Equal air entry with coarse bilateral rhonchi CVS: S1 and S2 normal with no audible murmur, regular rhythm. ABDOMEN: No hepatosplenomegaly, normal bowel sounds, no guarding or rigidity. CENTRAL NERVOUS SYSTEM: No focal deficits, tone is normal in all 4 extremities. EXTREMITIES: There is no peripheral edema. No clubbing, no cyanosis. Peripheral pulses are intact. - Labs CBC & Chem 7: 11/05/21 04:37 11/05/21 04:37 Labs: Abnormal Lab Results - Last 24 Hours (Table) 11/04/21 11/04/21 11/05/21 Range/Units 16:43 20:29 04:37 WBC 15.04 H (4.50-10.00) X 10*3/uL RBC 4.29 L (4.40-5.60) X 10*6/uL MCV 101.2 H (80.0-97.0) fL MCH 32.4 H (27.0-32.0) pg RDW 15.8 H (11.5-14.5) % Immature Gran # 0.10 H (0.00-0.04) X 10*3/uL Neutrophils # 13.44 H (1.80-7.70) X 10*3/uL Lymphocytes # 0.78 L (0.90-5.00) X 10*3/uL Chloride (96-109) mmol/L Carbon Dioxide (20.0-27.5) mmol/L BUN/Creatinine Ratio (12.00-20.00) Ratio Glucose (70-110) mg/dL POC Glucose (mg/dL) 152 H 151 H (75-99) mg/dL Calcium (8.7-10.3) mg/dL ALT (10-49) U/L Alkaline Phosphatase (41-126) U/L Total Protein (6.2-8.2) g/dL Albumin (3.8-4.9) g/dL 11/05/21 11/05/21 Range/Units 04:37 11:54 WBC (4.50-10.00) X 10*3/uL RBC (4.40-5.60) X 10*6/uL MCV (80.0-97.0) fL MCH (27.0-32.0) pg RDW (11.5-14.5) % Immature Gran # (0.00-0.04) X 10*3/uL Neutrophils # (1.80-7.70) X 10*3/uL Lymphocytes # (0.90-5.00) X 10*3/uL Chloride 95 L (96-109) mmol/L Carbon Dioxide 29.8 H (20.0-27.5) mmol/L BUN/Creatinine Ratio 39.67 H (12.00-20.00) Ratio Glucose 114 H (70-110) mg/dL POC Glucose (mg/dL) 131 H (75-99) mg/dL Calcium 8.3 L (8.7-10.3) mg/dL ALT 55 H (10-49) U/L Alkaline Phosphatase 132 H (41-126) U/L Total Protein 5.8 L (6.2-8.2) g/dL Albumin 3.7 L (3.8-4.9) g/dL Assessment and Plan Assessment: 1. Acute hypoxemic respiratory failure; multifactorial - Bilateral pneumonia - Patient is status post bronchoscopy which revealed organizing pneumonia - Patient has completed a course of ceftriaxone and azithromycin - Remains on O2 at 6 L per nasal cannula; remains on DuoNeb nebulizer treatments, Symbicort and steroids - Plan to continue to titrate O2 as able 2. Atrial fibrillation with RVR; remains rate controlled; continue anticoagulation with Eliquis 3. Acute renal injury; continue with slow IV fluid hydration; monitor strict CHING's, daily weights, renal function and electrolytes 4. Hypertension; stable on current regimen 5. Obstructive sleep apnea/COPD; management as indicated above DVT prophylaxis; SCDs/Eliquis CODE STATUS; full code
[2021-11-05 21:00] LABS: Glucose,Whole Blood 107 mg/dL (75-99)
[2021-11-05] MEDS: ATORVASTATIN 80 MG TAB PO SCH (21:02)
[2021-11-05] MEDS: HYDROcodone/APAP 10-325MG 1 EACH TAB PO PRN (21:08)
[2021-11-06] MEDS: MORPHINE SULFATE ER 15 MG TABLET PO SCH ×2 (05:36→16:01)
[2021-11-06] MEDS: PRAMIPEXOLE 1 MG TAB PO SCH ×2 (06:18→16:00)
[2021-11-06 06:40] LABS: Glucose,Whole Blood 91 mg/dL (75-99)
[2021-11-06] MEDS: APIXABAN 5 MG TAB PO SCH ×2 (07:53→21:10)
[2021-11-06] MEDS: METOPROLOL TARTRATE 50 MG TAB PO SCH ×2 (07:54→21:19)
[2021-11-06] MEDS: FLECAINIDE 50 MG TAB PO SCH ×2 (07:54→21:10)
[2021-11-06] MEDS: predniSONE 20 MG TAB PO SCH (07:54)
[2021-11-06] MEDS: FUROSEMIDE 20 MG TAB PO SCH (07:54)
[2021-11-06] MEDS: LISINOPRIL-HCTZ 10-12.5 MG 1 EACH TAB PO SCH ×2 (07:55→21:18)
[2021-11-06] MEDS: INSULIN ASPART (NovoLOG) 100 UNIT/ML VIAL SQ SCH ×4 (07:55→21:15)
[2021-11-06] MEDS: FLUCONAZOLE 150 MG TAB PO SCH (07:55)
[2021-11-06] MEDS: SODIUM CHLORIDE 0.9% 500 ML 500 ML IV SCH (07:56)
[2021-11-06] MEDS: SYMBICORT 160-4.5 MCG INHALER INHALATION SCH ×2 (09:05→19:04)
[2021-11-06] MEDS: IPRATROPIUM-ALBUTEROL 3 ML NEB INHALATION SCH ×4 (09:05→19:05)
[2021-11-06] MEDS: HYDROcodone/APAP 10-325MG 1 EACH TAB PO PRN (10:20)
[2021-11-06 11:13] LABS: Glucose,Whole Blood 112 mg/dL (75-99)
--- NOTE | 2021-11-06 11:47 | P.PN ---
Subjective Progress Note Date: 11/06/21 Principal diagnosis: Acute hypoxemic respiratory failure; multifactorial Bilateral pneumonia Status post bronchoscopy which revealed organizing pneumonia 76-year-old male with a history of COPD, who presents to the emergency department on October 13, complaining of shortness of breath. The patient also complains of cough, dizziness, fever, chills, and phlegm production. The patient has been feeling well as mentioned above for at least 2-3 weeks. The patient was evaluated in the emergency department. He was found have atrial fibrillation with rapid ventricular response. In addition, his chest x-ray and CAT scan suggested pneumonia, with significant consolidation and abnormalities noted more so in the right lung that in the left. The patient has been vaccinated fully. We saw him in the emergency department, room 6, he was on BiPAP, with settings of IPAP 12, EPAP 6, and 60%. The patient was on IV heparin via weight based protocol, and a Cardizem drip at 15 mg an hour. The patient was lying flat in bed. He did not appear to have a great deal of respiratory difficulty. White count 22,000, hemoglobin 13, hematocrit 42.1, platelet count 326,000. PT 13, INR 1.2, PTT 38.3. D-dimer was 7.48. Sodium, potassium, chloride, CO2, and anion gap are all normal BUN was 38 creatinine of 1.53. Troponin was elevated at 2.06, 1.74, and 1.24. Testing for mae virus was negative. He was no pulmonary embolism on CT angiogram. In addition, there was mediastinal bilateral hilar lymphadenopathy, measuring up to 5.2 cm. 11/04/2021 Patient is seen and evaluated in follow-up at bedside. He is resting comfortab ly in bed. Awake and alert in no acute distress. Currently on 6 L high flow nasal cannula. Bronchial wash cultures positive for Teri only. Blood glucose 152. He is continued on DuoNeb inhalations, Symbicort, prednisone taper. Continue with anticoagulation with Eliquis Plan is to continue to titrate FiO2 as able; currently on 6 L high flow nasal cannula; patient will be a candidate for home O2 11/05/2021 Patient is seen and evaluated in follow-up on the regular medical floor. He is currently sitting up in bed. Awake and alert in no acute distress. is at the bedside. Currently on on 5 L high flow nasal cannula with O2 saturations at 96%. He's been afebrile. Hemodynamically stable. Bronchial wash cultures were negative other than for Teri. White count 15.0. Hemoglobin 13.9. Sodium 137. Potassium 4.3. Creatinine 0.6. Glucose 114. AST 22. ALT 55. Patient remains on DuoNeb inhalations, Symbicort, prednisone. Anticoagulated with Eliquis. We will continue to titrate O2 as able; patient will need arrangements are home O2 therapy once able to maintain O2 saturation above 90% on 4 L 11/06/2021 Patient is seen and evaluated in room at bedside; remains on O2 at 5 L HFNC; maintaining O2 saturation above 95% Vital signs are reviewed and stable with temperature of 97.9, pulse 53, respiration 18 and blood pressure 169/80 Patient remains on DuoNeb nebulizer treatments, Symbicort, prednisone and Eliquis for anticoagulation Continues to require high flow oxygen; pulmonary on board and patient is recommended discharge on home oxygen once needing less than 4 L per nasal cannula Case management to arrange for home oxygen once stable Objective - Vital Signs Vital signs: Vital Signs Temp 97.9 F 11/06/21 07:45 Pulse 60 11/06/21 09:06 Resp 18 11/06/21 07:45 BP 169/80 11/06/21 07:45 Pulse Ox 96 11/06/21 07:45 Intake & Output 11/05/21 11/06/21 11/06/21 18:59 06:59 18:59 Intake Total 1652 600 Output Total 650 Balance 1002 600 Intake: Oral 1652 Tube Feeding 600 Output: Urine 650 Other: Voiding Method Urinal Urinal Urinal # Voids 2 5 - Exam GENERAL EXAM: Alert, very pleasant 76-year-old gentleman, on 6 L high flow nasal cannula, fairly comfortable in no apparent distress. HEAD: Normocephalic. NECK: No masses, no JVD. CHEST: No chest wall deformity. LUNGS: Equal air entry with coarse bilateral rhonchi CVS: S1 and S2 normal with no audible murmur, regular rhythm. ABDOMEN: No hepatosplenomegaly, normal bowel sounds, no guarding or rigidity. CENTRAL NERVOUS SYSTEM: No focal deficits, tone is normal in all 4 extremities. EXTREMITIES: There is no peripheral edema. No clubbing, no cyanosis. Peripheral pulses are intact. - Labs CBC & Chem 7: 11/05/21 04:37 11/05/21 04:37 Labs: Abnormal Lab Results - Last 24 Hours (Table) 11/05/21 11/05/21 11/05/21 Range/Units 11:54 16:12 20:57 POC Glucose (mg/dL) 131 H 131 H 107 H (75-99) mg/dL Assessment and Plan Assessment: 1. Acute hypoxemic respiratory failure; multifactorial - Bilateral pneumonia - Patient is status post bronchoscopy which revealed organizing pneumonia - Patient has completed a course of ceftriaxone and azithromycin - Remains on O2 at 6 L per nasal cannula; remains on DuoNeb nebulizer treatments, Symbicort and steroids - Plan to continue to titrate O2 as able 2. Atrial fibrillation with RVR; remains rate controlled; continue anticoagulation with Eliquis 3. Acute renal injury; continue with slow IV fluid hydration; monitor strict CHING's, daily weights, renal function and electrolytes 4. Hypertension; stable on current regimen 5. Obstructive sleep apnea/COPD; management as indicated above DVT prophylaxis; SCDs/Eliquis CODE STATUS; full code
[2021-11-06] MEDS: SERTRALINE 100 MG TAB PO SCH (16:01)
[2021-11-06 16:16] LABS: Glucose,Whole Blood 123 mg/dL (75-99)
--- NOTE | 2021-11-06 16:42 | P.PN ---
Subjective Progress Note Date: 11/06/21 Principal diagnosis: Pneumonia, respiratory failure. On 10/28/2021, patient was evaluated today in the ICU, he underwent a bronchoscopy, bronchoalveolar lavage and transbronchial biopsy yesterday, initial findings on the bronchoscopy showed significant amount of old blood in the airway especially in the right mainstem bronchus and left mainstem bronchus, and these were lavaged. And suctioned with difficulty but nonetheless it was all cleared and I was able to visualize basically clear airways without any active bleeding. Then patient underwent transbronchial biopsies and lavage of the right middle lobe and right lower lobe, this was done under fluoroscopy guidance. There was evidence of postoperative bleeding, required another look down the airways, and the bleeding was felt to be not significant however I did apply some epinephrine in the right lower lobe lateral segment where the biopsies were taken mostly. And there was very minimal oozing of blood. However considering the patient was desaturating and required to be on relatively high FiO2, I chose not to extubate him yesterday, and I kept him on mechanical ventilation sedated until this morning. This morning, I took the patient off sedation, and gave the patient a very short trial of weaning on pressure support of 10 and CPAP. And I was at bedside during this period patient tolerated the weaning process quite nicely, then I proceeded to extubating the patient to BiPAP which I will transition to nasal cannula as he tolerates it. In the meantime we'll advance his diet postextubation. Patient was noted to be quite bradycardic yesterday, and some of his cardiac medications for atrial fibrillation remain on hold at present. Patient has sinus bradycardia currently rate in the 50s. Chest x-ray continues to show bilateral infiltrates, but chest x-ray today is improved compared to chest x-ray yesterday post bronchoscopy and biopsy. His CBC is relatively unremarkable. Hemoglobin is 12.3. INR is 1.3. ABG on 60% showed a pO2 of 70 pCO2 46 patient of 7.40 and this was on assist control rate of 20, volume is 500 FiO2 60% and PEEP of 8 Reevaluated today on 10/29/2021, patient remains in the ICU, however he has demonstrated a significant improvement over the last 24 hours. Feeling better, he is on 6 L high flow nasal cannula, not using BiPAP, patient is experiencing intermittent episodes of blood-tinged sputum hence I'm keeping his anticoagulations therapy on hold, his heart rate is normal, he is in sinus rhythm, I am planning to discontinue his amiodarone altogether, but I will place the patient back on his beta blockers metoprolol 50 mg by mouth twice a day. Again considering the patient had chronic history of hemoptysis, I prefer not to place the patient back on any anticoagulation therapy not to mention the patient is presently in normal sinus rhythm. WBC count today is 19.6 hemoglobin 13.4. Electrolytes are normal renal profile is normal. Remains on antibiotics, and we will continue until we get some answer from the cultures from the BAL and get the results of the transbronchial biopsy done Reevaluated today on 10/30/2021, patient remains in the ICU, however he is an overflow, remains on 6 L high flow nasal cannula, O2 saturation is marginal. Patient denies any shortness of breath, he has no more episodes of hemoptysis upon coughing. Chest x-ray is basically about the same. Cultures from the BAL are negative so far. However the patient had organizing pneumonia noted on his transbronchial biopsies. Patient is already on relatively high-dose of Solu- Medrol, and I am keeping him off amiodarone, keeping him on cefepime but discontinuing his vancomycin. He is on multiple medications for his atrial fibrillation with RVR, however will continue to hold Eliquis and we'll continue to hold amiodarone. Patient is on flecainide, metoprolol, and at one point he was on Cardizem. Rate seems to be fairly well controlled on flecainide and metoprolol. WBC count today is 20.3 hemoglobin is 14.2 electrolytes are normal renal profile is normal, transbronchial biopsy report was noted. No evidence of malignancy, there is evidence of organizing pneumonia Progress note dated 10/31/2021. The patient is again seen in room 366. Currently, he's on 7 L high flow nasal O2, with saturations in the low 90s. Clinically, the patient's feeling much better. The patient was in the intensive care unit yesterday, and was transferred out yesterday. His complaints include primarily shortness of breath. The patient apparently underwent bronchoscopy, and had biopsy showing organizing pneumonia. Subsequent to the biopsies, apparently he had some significant bleeding. Currently that has settled down. No new laboratory data today. Chest x-ray from October 30 shows consolidation throughout the right lung field, which is unchanged. The patient remains on budesonide, cefepime, formoterol, DuoNeb nebs, Solu-Medrol, and vancomycin. Progress note dated 11/01/2021. The patient is again seen in room 366. He's currently on 6 L nasal cannula. He is receiving saline at KVO. He is doing much better and feeling much better. The patient underwent bronchoscopy and biopsy showing organizing pneumonia. Subsequent to the biopsies, he had some bleeding, which is settled down. He denies any current bleeding or hemoptysis. No new laboratory data. Progress note dated 11/03/2021. 76-year-old male, again seen in room 366. The patient appears to be doing much better. He's been weaned down to 6 L nasal cannula. He's not receiving any IV fluids. He would like to be discharged home. He states she's feeling much better. He underwent bronchoscopy with transbronchial biopsy showing organizing pneumonia. Subsequent to the biopsies, the patient had some bleeding, and was in the intensive care unit. All that has resolved nicely. No new labs today. The patient is seen today 11/04/2021 in follow-up on the regular medical floor. He is resting comfortably in bed. Awake and alert in no acute distress. Currently on 6 L high flow nasal cannula. Bronchial wash cultures positive for Teri only. Blood glucose 152. He is continued on DuoNeb inhalations, Symbicort, prednisone taper. Anticoagulated with Eliquis. The patient is seen today 11/05/2021 in follow-up on the regular medical floor. He is currently sitting up in bed. Awake and alert in no acute distress. is at the bedside. He is on 5 L high flow nasal cannula with O2 saturations at 96%. He's been afebrile. Hemodynamically stable. Bronchial wash cultures were negative other than for Teri. White count 15.0. Hemoglobin 13.9. Sodium 137. Potassium 4.3. Creatinine 0.6. Glucose 114. AST 22. ALT 55. He remains on DuoNeb inhalations, Symbicort, prednisone. Anticoagulated with Eliquis. Progress note dated 11/06/2021. The patient is again seen in room 473. This patient has now been in the hospital for 24 days. He is currently stable on 5 L nasal cannula. Is not receiving any IV fluids. I did mention to the nurse yesterday, that from my perspective, the patient could be considered for discharge. The patient is feeling reasonably well. No new labs today. No new chest x-ray to review today. Objective - Vital Signs Vital signs: Vital Signs Temp 98.3 F 11/06/21 12:55 Pulse 68 11/06/21 12:55 Resp 17 11/06/21 12:55 BP 131/78 11/06/21 12:55 Pulse Ox 95 11/06/21 12:55 Intake & Output 11/05/21 11/06/21 11/06/21 18:59 06:59 18:59 Intake Total 1652 600 Output Total 650 Balance 1002 600 Intake: Oral 1652 Tube Feeding 600 Output: Urine 650 Other: Voiding Method Urinal Urinal Urinal # Voids 2 5 - Exam No acute distress, oriented 3. Currently on 5 L high flow nasal O2. Saturations are 95 %. HEENT examination is grossly unremarkable. Neck supple. Full range of motion. No adenopathy thyromegaly or neck vein distention. Cardiovascular examination reveals regular rhythm rate. S1-S2 normal. No S3 or S4. No discernible murmur noted. Heart sounds are distant. Heart rate 88 bpm. Lungs reveal bilateral rhonchi, right side worse than left side. No wheezes or crackles. Saturations are excellent on 5 L. Abdomen soft bowel sounds are heard. No masses or tenderness. Extremities are intact. No cyanosis clubbing or edema. Skin is without rash or lesion. Neurologic examination is brief but nonfocal. The patient does have a fine tremor of the upper extremities and hands. - Labs CBC & Chem 7: 11/05/21 04:37 11/05/21 04:37 Labs: Abnormal Lab Results - Last 24 Hours (Table) 11/05/21 11/06/21 11/06/21 Range/Units 20:57 11:11 16:12 POC Glucose (mg/dL) 107 H 112 H 123 H (75-99) mg/dL Assessment and Plan Assessment: Hypoxemic respiratory failure, multifactorial, in part related to bilateral pneumonia, right greater than left, as well as atrial fibrillation with RVR. Status post bronchoscopy and biopsy, showing organizing pneumonia, with subsequent extubation on O2/07/2022. Elevated troponins, which may reflect non-ST segment elevation myocardial infarctions, versus supply/demand mismatch. Mild/moderate acute kidney injury. History of COPD. History of hypertension. History of obstructive sleep apnea syndrome. History of skin cancer. Prior history of pneumonia. Prior history of tobacco use. Plan: Plan dated 10/14/2021. The patient is started on azithromycin and Rocephin. Corticosteroids are discontinued. Symbicort is added. The patient is on breathing treatments, in addition, the patient is on IV heparin and Cardizem, as per cardiology. We will continue to follow and make recommendations where appropriate. Prognosis is guarded. Additional recommendations and suggestions are forthcoming. Plan dated 10/31/2021. Currently, the patient has been weaned down to 7 L nasal cannula. Saturations are in the 92-94% range. The patient remains on cefepime and vancomycin. The patient's also receiving Solu-Medrol, and breathing. Apparently the transbronchial biopsy showed evidence of organizing pneumonia. I was unable to pull up the report. Additional recommendations and suggestions are forthcoming. Prognosis is guarded. We will continue to follow make recommendations where appropriate. Plan dated 11/01/2021. Currently, the patient has been weaned down to 6 L. He feels like his breathing is improved. Remains on Pulmicort, formoterol, DuoNeb, and Solu-Medrol. Thus far, all his culture data is negative. There was some Teri on the bronch. washings. Additional recommendations and suggestions are forthcoming. The patient remains on fluconazole, but vancomycin and cefepime have been discontinued. Additional recommendations and suggestions are forthcoming. Prognosis is guarded. We will continue to wean down his oxygen requirements. Plan dated 11/03/2021. Currently, the patient has been weaned down to 6 L nasal cannula. Saturations are 98%. Transbronchial biopsies were consistent with organizing pneumonia. Antibiotics have been discontinued. Medications, labs, and x-rays are all reviewed. The patient would like to be considered for possible discharge. He's feeling much better. After discharge, the patient should follow with me in the office. Pulmicort, and formoterol are discontinued in favor of Symbicort. Solu-Medrol is discontinued in favor of prednisone. Plan dated 11/06/2021. The patient has been weaned down to 5 L nasal cannula. Saturations are 95%. He's not receiving any IV fluids. No new laboratory data to review, or x-rays to review. Clinically the patient's doing well and I thought he could be discharged. He remains on Symbicort and updrafts. He's also on prednisone 20 mg a day. He is not on any antibiotics at this time. Additional recommendations and suggestions are forthcoming. His lung biopsy revealed organizing pneumonia. Hopeful discharge in the near future. Time with Patient: Less than 30
[2021-11-06] MEDS: ATORVASTATIN 80 MG TAB PO SCH (21:10)
[2021-11-06 21:14] LABS: Glucose,Whole Blood 156 mg/dL (75-99)
[2021-11-07] MEDS: MORPHINE SULFATE ER 15 MG TABLET PO SCH ×2 (05:31→17:14)
[2021-11-07] MEDS: PRAMIPEXOLE 1 MG TAB PO SCH ×2 (05:52→17:14)
[2021-11-07 07:35] LABS: Glucose,Whole Blood 93 mg/dL (75-99)
[2021-11-07] MEDS: INSULIN ASPART (NovoLOG) 100 UNIT/ML VIAL SQ SCH ×4 (07:48→20:39)
[2021-11-07] MEDS: APIXABAN 5 MG TAB PO SCH ×2 (07:53→21:09)
[2021-11-07] MEDS: FUROSEMIDE 20 MG TAB PO SCH (07:53)
[2021-11-07] MEDS: predniSONE 20 MG TAB PO SCH (07:53)
[2021-11-07] MEDS: FLUCONAZOLE 150 MG TAB PO SCH (07:54)
[2021-11-07] MEDS: LISINOPRIL-HCTZ 10-12.5 MG 1 EACH TAB PO SCH ×3 (07:54→23:15)
[2021-11-07] MEDS: SYMBICORT 160-4.5 MCG INHALER INHALATION SCH ×2 (08:30→20:12)
[2021-11-07] MEDS: IPRATROPIUM-ALBUTEROL 3 ML NEB INHALATION SCH ×4 (08:30→20:12)
[2021-11-07] MEDS: SODIUM CHLORIDE 0.9% 500 ML 500 ML IV SCH (09:40)
[2021-11-07 10:19] LABS: Basophils # (A) 0.04 X 10*3/uL (0.00-0.10); Basophils % (A) 0.2 %; Eosinophils # (A) 0.82 X 10*3/uL (0.04-0.35); Eosinophils % (A) 4.8 %; HCT 40.9 % (39.6-50.0); HGB 13.1 g/dL (13.0-17.0); Immature Grans, Automated 1.4 %; Lymphocytes # (A) 1.69 X 10*3/uL (0.90-5.00); Lymphocytes % (A) 9.9 %; MCH 32.3 pg (27.0-32.0); Mean Platelet Volume 10.1 fL (9.5-12.2); Monocytes # (A) 0.92 X 10*3/uL (0.20-1.00); Monocytes % (A) 5.4 %; NRBC Per 100 WBC 0 /100 WBCS (0.0-0.0); Neutrophils # (A) 13.29 X 10*3/uL (1.80-7.70); Neutrophils % (A) 78.3 %; Platelet Count 180 X 10*3/uL (140-440); RBC 4.05 X 10*6/uL (4.40-5.60); RDW 15.9 % (11.5-14.5); WBC 16.99 X 10*3/uL (4.50-10.00)
[2021-11-07 10:26] LABS: African American GFR (CKD) 107.7 (60.0-200.0); BUN/Creat Ratio 38.14 Ratio (12.00-20.00); Blood Urea Nitrogen 26.7 mg/dL (9.0-27.0); Calcium 8.2 mg/dL (8.7-10.3); Potassium 3.9 mmol/L (3.5-5.5)
[2021-11-07] MEDS: FLECAINIDE 50 MG TAB PO SCH ×2 (10:45→22:54)
[2021-11-07] MEDS: METOPROLOL TARTRATE 50 MG TAB PO SCH ×2 (10:45→20:56)
--- NOTE | 2021-11-07 11:27 | XR ---
EXAMINATION TYPE: XR chest 1V portable DATE OF EXAM: 11/07/2021 COMPARISON: 10/30/2019 HISTORY: Cough TECHNIQUE: Single frontal view of the chest is obtained. FINDINGS: Left lower lobe infiltrate and diffuse right-sided infiltrate are stable. Left perihilar a reas of consolidation also stable. Heart is enlarged. Underlying COPD suspected. Arthropathy of the s houlders with chronic appearing ossification along the left axilla. No pneumothorax. IMPRESSION: 1. Bilateral areas of infiltrate are stable correlate for pneumonia otherwise consider neoplastic pro cess.
[2021-11-07 12:12] LABS: Glucose,Whole Blood 134 mg/dL (75-99)
[2021-11-07] MEDS: HYDROcodone/APAP 10-325MG 1 EACH TAB PO PRN ×2 (12:22→21:13)
--- NOTE | 2021-11-07 12:23 | P.PN ---
Subjective Progress Note Date: 11/07/21 Principal diagnosis: Shortness of breath, wheezing, hypoxia On 10/24/2021 patient seen in follow-up on selective care unit, he sitting up on the edge of the bed, breathing comfortably, he is currently down to 6 L of oxygen pulse ox is 92%, lung sounds are still positive for diffuse wheezes and rhonchi, but overall patient's is feeling better, oxygenation has improved although the chest x-ray still showing persistent areas of infiltrate with chronic parenchymal changes with confluent increased right mid to lower lung opacity silhouetting the right heart border and hemidiaphragm and scattered left-sided more central opacities. Patient has completed a course of cefepime, remains on vancomycin, so far there is been no growth on the blood and sputum cultures. He also continues on IV steroids with Solu-Medrol gram every 8 hours, he is on daily dose of Lasix, cough medicine, nebulized bronchodilators. Denies any chest discomfort, no hemoptysis. Breathing fairly easily. Yesterday's labs have been reviewed, his white blood cell count was 18.3, hemoglobin is 14.1 and electrolytes are unremarkable, BUN is 23 creatinine 0.6 On 10/25/2021 patient seen in follow-up on selective care unit, he remains on 6 L of oxygen pulse ox is 90%, he sounds are rhonchorous, congested, however he is not able to bring up much phlegm. Yesterday he was having some phlegm production with a blood-tinged mucus. We added cefepime back on, he remains on vancomycin, CULTURE data is negative, he is afebrile, does not appear to be in any acute distress, hemodynamically his been stable. His chest x-ray findings from yesterday was still showing significant right mid and lower lung co nsolidation. He continues on IV steroids and breathing treatments, he is on oral dose of Lasix. Follow up procalcitonn was negative at 0.03. His creatinine was 0.5 on yesterday's labs, Vanco trough was 15.3. On October 26, 2021 patient seen in follow-up on selective care unit, he still feels short of breath, his cough is congested but nonproductive. He is on 6 L of oxygen his pulse ox is 90-93%, lung sounds are diminished, with the scattered wheezes and rhonchi, patient continues on a combination of cefepime and vancomycin he has been slow to improve, his follow-up chest x-ray today shows stable right mid and lower lung opacity. Denies chest pain or hemoptysis, does have exertional dyspnea, patient continues on IV steroids with Solu-Medrol 60 mg every 6 hours, antibiotics as mentioned above, all his culture data has been negative. His been afebrile, hemodynamically he has been stable. His Eliquis has been on hold since yesterday and we discussed bronchoscopy with BAL and possible biopsies tomorrow on , 10/27/2021 with which the patient is agreeable to proceed. On 10/27/2021 patient seen in follow-up on selective care unit, he is awake and alert, in no acute distress, he is on 6 L of oxygen pulse ox is 92-94%, his been afebrile overnight, hemodynamically has been stable, lung sounds reveal diffuse rhonchi bilaterally, patient has been having a congested cough, at times his been bringing up some dark-colored blood-tinged sputum. But most of the time his cough has been nonproductive, he remains on a combination of cefepime and vancomycin, his culture data remains negative thus far. His Eliquis is on hold, patient is in sinus mechanism with a controlled rate, yesterday his chest x-ray did not show significant improvement in appearance of his right lung pneumonia with addition of infiltration in the left upper lobe. he is scheduled for bronchoscopy with BAL and possible biopsies today at 12:30, his been nothing by mouth after midnight. On 11/07/2021 patient seen in follow-up on medical surgical floor, he is breathing comfortably, still a bit congested, but he is able to bring up a brown colored mucus. Overall oxygenation seems to have improved, patient is currently satting 95% on 5 L which could probably be weaned further down. Today's chest x-ray is pending, lung sounds reveal diffuse rhonchi bilaterally, no fever or chills, vital signs have been stable. Patient is status post bronchoscopy with BAL, and BAL cultures were positive for Teri albicans and patient is currently on Diflucan, patient has completed a course of cefepime and vancomycin. Follow-up chest x-ray today shows bilateral areas of infiltrate, possibly slightly improved right mid and right lower lobe consolidation. Currently remains on prednisone 20 mg daily, he is on Symbicort, nebulized DuoNeb, he is back on Eliquis. he had no acute events overnight. Objective - Vital Signs Vital signs: Vital Signs Temp 97.6 F 11/07/21 08:00 Pulse 60 11/07/21 08:40 Resp 16 11/07/21 08:00 BP 124/66 11/07/21 08:00 Pulse Ox 95 11/07/21 08:00 Intake & Output 11/06/21 11/07/21 11/07/21 18:59 06:59 18:59 Intake Total 296 Balance 296 Intake: Oral 296 Other: Voiding Method Urinal Urinal # Voids 2 # Bowel Movements 1 - Exam GENERAL EXAM: Alert, very pleasant, 76-year-old white male, on 4 L of oxygen and the pulse ox of 95% comfortable in no apparent distress. HEAD: Normocephalic/atraumatic. EYES: Normal reaction of pupils, equal size. Conjunctiva pink, sclera white. NOSE: Clear with pink turbinates. THROAT: No erythema or exudates. NECK: No masses, no JVD, no thyroid enlargement, no adenopathy. CHEST: No chest wall deformity. Symmetrical expansion. LUNGS: Equal air entry with diffuse rhonchi and crackles in the right mid and lower lung CVS: Regular rate and rhythm, normal S1 and S2, no gallops, no murmurs, no rubs ABDOMEN: Soft, nontender. No hepatosplenomegaly, normal bowel sounds, no guarding or rigidity. EXTREMITIES: No clubbing, no edema, no cyanosis, 2+ pulses and upper and lower extremities. MUSCULOSKELETAL: Muscle strength and tone normal. SPINE: No scoliosis or deformity SKIN: No rashes CENTRAL NERVOUS SYSTEM: Alert and oriented -3. No focal deficits, tone is normal in all 4 extremities. PSYCHIATRIC: Alert and oriented -3. Appropriate affect. Intact judgment and insight. - Labs CBC & Chem 7: 11/07/21 05:29 11/07/21 05:29 Labs: Abnormal Lab Results - Last 24 Hours (Table) 11/06/21 11/06/21 11/07/21 Range/Units 16:12 21:12 05:29 WBC 16.99 H (4.50-10.00) X 10*3/uL RBC 4.05 L (4.40-5.60) X 10*6/uL MCV 101.0 H (80.0-97.0) fL MCH 32.3 H (27.0-32.0) pg RDW 15.9 H (11.5-14.5) % Immature Gran # 0.23 H (0.00-0.04) X 10*3/uL Neutrophils # 13.29 H (1.80-7.70) X 10*3/uL Eosinophils # 0.82 H (0.04-0.35) X 10*3/uL Sodium (135-145) mmol/L Chloride (96-109) mmol/L Carbon Dioxide (20.0-27.5) mmol/L BUN/Creatinine Ratio (12.00-20.00) Ratio POC Glucose (mg/dL) 123 H 156 H (75-99) mg/dL Calcium (8.7-10.3) mg/dL 11/07/21 11/07/21 Range/Units 05:29 12:10 WBC (4.50-10.00) X 10*3/uL RBC (4.40-5.60) X 10*6/uL MCV (80.0-97.0) fL MCH (27.0-32.0) pg RDW (11.5-14.5) % Immature Gran # (0.00-0.04) X 10*3/uL Neutrophils # (1.80-7.70) X 10*3/uL Eosinophils # (0.04-0.35) X 10*3/uL Sodium 134 L (135-145) mmol/L Chloride 94 L (96-109) mmol/L Carbon Dioxide 28.0 H (20.0-27.5) mmol/L BUN/Creatinine Ratio 38.14 H (12.00-20.00) Ratio POC Glucose (mg/dL) 134 H (75-99) mg/dL Calcium 8.2 L (8.7-10.3) mg/dL Assessment and Plan Plan: Assessment: #1. Acute hypoxic respiratory failure second to bilateral pneumonia right more than left. This is most likely a bacterial infection. COVID 19 evaluation came back negative and the patient had a negative Legionella urine antigen. The patient remains on broad-spectrum antibiotics. The patient is currently off the BiPAP and the patient is currently on 6 L of O2 by nasal cannula. Chest x-ray still showing extensive amount consolidation on the right. No major improvement in the chest x-ray. Clinically however the patient is improving. Patient feels improved. He is less short of breath. The white cell count was also improving. Clinically improving. Patient is status post bronchoscopy with BAL and biopsy on 10/27/2021, BAL cultures showed Teri albicans, and biopsy was positive for organizing pneumonia #2. Status post mechanical ventilator support for bronchoscopy with BAL on 10/27/2021 and biopsies, was successfully weaned and extubated on 10/28/2021 #3. Acute non-ST segment elevation myocardial infarction, currently off IV heparin and the patient was started on long-term and to coagulation with Eliquis 5 mg by mouth twice a day. #4. Acute kidney injury, resolved #5. Acute atrial fibrillation with rapid ventricular response , rate is controlled and the patient is on amiodarone 400 mg by mouth twice a day, metoprolol 50 mg by mouth 3 times a day and the patient is on long-term and c oagulation with Eliquis. #6. Dyspnea secondary to above, improved #7. History of COPD. #8. History of hypertension. #9. History of obstructive sleep apnea syndrome. #10. History of skin cancer. #11. Prior history of pneumonia.the patient's previous cultures from 04/02/2019 was strep pneumonia and pseudomonas aeruginosa. #12. Prior history of tobacco use. #13. Leukocytosis, improved Plan: Today's chest x-ray has been reviewed showing slight improvement in the appearance of right mid and right lower lung consolidation Continue weaning FiO2 to keep O2 sats ration is at or above 90% Encouraged the patient to sit up in the chair, ambulate, uses IS and flutter valve Continue Diflucan, patient has completed his cefepime and vancomycin He has been transitioned to oral prednisone, which is currently down to 20 mg daily Continue oral anticoagulation Increase activity as tolerated Physical therapy recommendations Possible discharge home in the next 24-48 hours if remains stable and continues to improve I performed a history & physical examination of the patient and discussed their management with my nurse practitioner, Hyun Steiner. I reviewed the nurse practitioner's note and agree with the documented findings and plan of care. Lung sounds are positive for diffuse rhonchi throughout the lung taylor. The findings and the impression was discussed with the patient. I attest to the documentation by the nurse practitioner. Time with Patient: Less than 30
--- NOTE | 2021-11-07 14:43 | P.PN ---
Subjective Progress Note Date: 11/07/21 Acute hypoxemic respiratory failure; multifactorial Bilateral pneumonia Status post bronchoscopy which revealed organizing pneumonia 76-year-old male with a history of COPD, who presents to the emergency department on October 13, complaining of shortness of breath. The patient also complains of cough, dizziness, fever, chills, and phlegm production. The patient has been feeling well as mentioned above for at least 2-3 weeks. The patient was evaluated in the emergency department. He was found have atrial fibrillation with rapid ventricular response. In addition, his chest x-ray and CAT scan suggested pneumonia, with significant consolidation and abnormalities noted more so in the right lung that in the left. The patient has been vaccinated fully. We saw him in the emergency department, room 6, he was on BiPAP, with settings of IPAP 12, EPAP 6, and 60%. The patient was on IV heparin via weight based protocol, and a Cardizem drip at 15 mg an hour. The patient was lying flat in bed. He did not appear to have a great deal of respiratory difficulty. White count 22,000, hemoglobin 13, hematocrit 42.1, platelet count 326,000. PT 13, INR 1.2, PTT 38.3. D-dimer was 7.48. Sodium, potassium, chloride, CO2, and anion gap are all normal BUN was 38 creatinine of 1.53. Troponin was elevated at 2.06, 1.74, and 1.24. Testing for mae virus was negative. He was no pulmonary embolism on CT angiogram. In addition, there was mediastinal bilateral hilar lymphadenopathy, measuring up to 5.2 cm. 11/04/2021 Patient is seen and evaluated in follow-up at bedside. He is resting comfortably in bed. Awake and alert in no acute distress. Currently on 6 L hig h flow nasal cannula. Bronchial wash cultures positive for Teri only. Blood glucose 152. He is continued on DuoNeb inhalations, Symbicort, prednisone taper. Continue with anticoagulation with Eliquis Plan is to continue to titrate FiO2 as able; currently on 6 L high flow nasal cannula; patient will be a candidate for home O2 11/05/2021 Patient is seen and evaluated in follow-up on the regular medical floor. He is currently sitting up in bed. Awake and alert in no acute distress. is at the bedside. Currently on on 5 L high flow nasal cannula with O2 saturations at 96%. He's been afebrile. Hemodynamically stable. Bronchial wash cultures were negative other than for Teri. White count 15.0. Hemoglobin 13.9. Sodium 137. Potassium 4.3. Creatinine 0.6. Glucose 114. AST 22. ALT 55. Patient remains on DuoNeb inhalations, Symbicort, prednisone. Anticoagulated with Eliquis. We will continue to titrate O2 as able; patient will need arrangements are home O2 therapy once able to maintain O2 saturation above 90% on 4 L 11/06/2021 Patient is seen and evaluated in room at bedside; remains on O2 at 5 L HFNC; maintaining O2 saturation above 95% Vital signs are reviewed and stable with temperature of 97.9, pulse 53, respiration 18 and blood pressure 169/80 Patient remains on DuoNeb nebulizer treatments, Symbicort, prednisone and Eliquis for anticoagulation Continues to require high flow oxygen; pulmonary on board and patient is recommended discharge on home oxygen once needing less than 4 L per nasal cannula Case management to arrange for home oxygen once stable 11/07/2021 Patient is seen in follow-up this morning continues on oxygen high flow nasal cannula between 4 and 5 L at home oxygen is being arranged. Patient also continues on breathing inhalational treatments along with oral steroids with pulmonary following and will continue. Per nursing staff patient has been having some mild bradycardia although asymptomatic and normally takes flecainide and metoprolol and are being held at this time. WBC is 16.99 and maintained on steroids. Chest x-ray today shows bilateral areas of infiltrate are stable of the left lower lobe and diffuse right-sided infiltrate and to correlate for pneumonia otherwise consider neoplastic process. sputum culture also showing Teri albicans and maintained on Diflucan and patient has completed IV antibiotics and is currently off antibiotic therapy. Patient is weak and will have physical therapy evaluate the patient. Review of systems: Constitutional: reports of fatigue, no reports of fever, or chills Cardiovascular: No reports of chest pain or palpitations Respiratory: reports of continued shortness of breath and cough and sputum production, with no worsening GI: No reports of nausea, vomiting, or diarrhea : No reports of dysuria or retention Neurovascular: reports of generalized weakness All medications have been reviewed Active Medications Acetaminophen (Acetaminophen Tab 325 Mg Tab) 650 mg PO Q6HR PRN PRN Reason: Mild Pain or Fever > 100.5 Last Admin: 10/31/21 04:08 Dose: 650 mg Documented by: Hydrocodone Bitart/Acetaminophen (Hydrocodone/Apap 10-325mg 1 Each Tab) 1 each PO Q6HR PRN PRN Reason: Pain Last Admin: 11/07/21 12:22 Dose: 1 each Documented by: Albuterol/Ipratropium (Ipratropium-Albuterol 3 Ml Neb) 3 ml INHALATION RT-Q4H PRN PRN Reason: Shortness Of Breath Or Wheezing Last Admin: 10/17/21 11:28 Dose: 3 ml Documented by: Albuterol/Ipratropium (Ipratropium-Albuterol 3 Ml Neb) 3 ml INHALATION RT-QID BALTAZAR Last Admin: 11/07/21 12:31 Dose: Not Given Documented by: Apixaban (Apixaban 5 Mg Tab) 5 mg PO BID [facility]; Protocol Last Admin: 11/07/21 07:53 Dose: 5 mg Documented by: Atorvastatin Calcium (Atorvastatin 80 Mg Tab) 80 mg PO HS [facility] Last Admin: 11/06/21 21:10 Dose: 80 mg Documented by: Budesonide/Formoterol Fumarate (Symbicort 160-4.5 Mcg Inhaler) 2 puff INHALA TION RT-BID [facility] Last Admin: 11/07/21 08:30 Dose: 2 puff Documented by: Flecainide Acetate (Flecainide 50 Mg Tab) 50 mg PO Q12HR [facility] Last Admin: 11/07/21 10:45 Dose: Not Given Documented by: Fluconazole (Fluconazole 150 Mg Tab) 150 mg PO DAILY [facility] Last Admin: 11/07/21 07:54 Dose: 150 mg Documented by: Furosemide (Furosemide 20 Mg Tab) 20 mg PO DAILY [facility] Last Admin: 11/07/21 07:53 Dose: 20 mg Documented by: Lisinopril/HCTZ (Lisinopril-Hctz 10-12.5 Mg 1 Each Tab) 1 each PO BID [facility] Last Admin: 11/07/21 07:54 Dose: 1 each Documented by: Hydralazine HCl (Hydralazine Hcl 20 Mg/Ml 1 Ml Vial) 10 mg IVP Q6HR PRN PRN Reason: Blood Pressure - High Last Admin: 10/31/21 09:14 Dose: 10 mg Documented by: Sodium Chloride (Saline 0.9%) 500 mls @ 20 mls/hr IV .Q24H [facility] Last Admin: 11/07/21 09:40 Dose: Not Given Documented by: Insulin Aspart (Insulin Aspart (Novolog) 100 Unit/Ml Vial) 0 unit SQ ACHS [facility]; Protocol Last Admin: 11/07/21 12:22 Dose: 1 unit Documented by: Metoprolol Tartrate (Metoprolol Tartrate 50 Mg Tab) 100 mg PO BID [facility] Last Admin: 11/07/21 10:45 Dose: Not Given Documented by: Morphine Sulfate (Morphine Sulfate Er 15 Mg Tablet) 15 mg PO BID@0600,1600 [facility]; Protocol Last Admin: 11/07/21 05:31 Dose: 15 mg Documented by: Naloxone HCl (Naloxone 0.4 Mg/Ml 1 Ml Vial) 0.2 mg IV Q2M PRN PRN Reason: Opioid Reversal Ondansetron HCl (Ondansetron 4 Mg Tab) 4 mg PO Q4H PRN PRN Reason: Nausea And Vomiting Last Admin: 10/30/21 05:24 Dose: 4 mg Documented by: Pramipexole Dihydrochloride (Pramipexole 1 Mg Tab) 1 mg PO BID@0600,1600 [facility] Last Admin: 11/07/21 05:52 Dose: 1 mg Documented by: Prednisone (Prednisone 20 Mg Tab) 20 mg PO DAILY [facility] Last Admin: 11/07/21 07:53 Dose: 20 mg Documented by: Sertraline HCl (Sertraline 100 Mg Tab) 100 mg PO DAILY@1600 [facility] Last Admin: 11/06/21 16:01 Dose: 100 mg Documented by: PHYSICAL EXAMINATION: GENERAL: The patient is alert and oriented, well developed, well nourished. currently on 4L HF OXYGEN saturation 95%. HEENT: Pupils are round and equally reacting to light. EOMI. does have scleral icterus. No conjunctival pallor. Normocephalic, atraumatic. No pharyngeal erythema. No thyromegaly. CARDIOVASCULAR: S1 and S2 muffled PULMONARY: diminished breath sounds bilaterally with Few scattered coarse rhonchi and crackles noted. ABDOMEN: soft. non-tender. Non-distended, normoactive bowel sounds. No palpable organomegaly. MUSCULOSKELETAL: No joint swelling or deformity. EXTREMITIES: No cyanosis, clubbing, or pedal edema. NEUROLOGICAL: Gross neurological examination did not reveal any focal deficits. SKIN: No rashes. Assessment: Acute hypoxemic respiratory failure, multifactorial with bilateral pneumonia status post bronchoscopy COPD, acute exacerbation Atrial fibrillation with RVR, currently rate controlled on metoprolol, flecainide Bradycardia Acute renal failure Hypertension obstructive sleep apnea dvt prophylaxis GI prophylaxis Full code Plan: Recommend to continue with current medications and symptomatic treatment. Patient continues with shortness of breath and maintained on 4L HF Pulmonary following. Patient continued on sulconazole for Teri albicans in the sputum and is status post bronchoscopy and has completed course of IV antibiotics. Patient to continue with breathing inhalational treatments along with oral steroids and Symbicort. Chest x-ray as mentioned previously. Cardiology had briefly evaluated the patient for atrial fibrillation with RVR although having some episodes of bradycardia of heart rates in the 40s and 50s and maintained on flecainide and metoprolol and discussed with nursing staff about holding for today and will have cardiology evaluate the patient today. Patient maintained on eliquis and will continue. Recommend repeat labs in the morning. Due to multiple complex medical issues, prognosis is guarded. The impression and plan of care has been dictated by nurse mehreen Bonet siaionetwin as directed. MD Martínez I have performed a history and examination and MDM of this patient, discussed the same with the dictator, and agree with the dictator's assessment and plan as written ,documented as a scribe. Based on total visit time, I have performed more than 50% of the visit. Any additional findings or plans will be noted. Objective - Vital Signs Vital signs: Vital Signs Temp 97.6 F 11/07/21 08:00 Pulse 60 11/07/21 08:40 Resp 16 11/07/21 08:00 BP 124/66 11/07/21 08:00 Pulse Ox 95 11/07/21 08:00 Intake & Output 11/06/21 11/07/21 11/07/21 18:59 06:59 18:59 Intake Total 296 Balance 296 Intake: Oral 296 Other: Voiding Method Urinal Urinal # Voids 2 # Bowel Movements 1 - Labs CBC & Chem 7: 11/07/21 05:29 11/07/21 05:29 Labs: Abnormal Lab Results - Last 24 Hours (Table) 11/06/21 11/06/21 11/07/21 Range/Units 16:12 21:12 05:29 WBC 16.99 H (4.50-10.00) X 10*3/uL RBC 4.05 L (4.40-5.60) X 10*6/uL MCV 101.0 H (80.0-97.0) fL MCH 32.3 H (27.0-32.0) pg RDW 15.9 H (11.5-14.5) % Immature Gran # 0.23 H (0.00-0.04) X 10*3/uL Neutrophils # 13.29 H (1.80-7.70) X 10*3/uL Eosinophils # 0.82 H (0.04-0.35) X 10*3/uL Sodium (135-145) mmol/L Chloride (96-109) mmol/L Carbon Dioxide (20.0-27.5) mmol/L BUN/Creatinine Ratio (12.00-20.00) Ratio POC Glucose (mg/dL) 123 H 156 H (75-99) mg/dL Calcium (8.7-10.3) mg/dL 11/07/21 11/07/21 Range/Units 05:29 12:10 WBC (4.50-10.00) X 10*3/uL RBC (4.40-5.60) X 10*6/uL MCV (80.0-97.0) fL MCH (27.0-32.0) pg RDW (11.5-14.5) % Immature Gran # (0.00-0.04) X 10*3/uL Neutrophils # (1.80-7.70) X 10*3/uL Eosinophils # (0.04-0.35) X 10*3/uL Sodium 134 L (135-145) mmol/L Chloride 94 L (96-109) mmol/L Carbon Dioxide 28.0 H (20.0-27.5) mmol/L BUN/Creatinine Ratio 38.14 H (12.00-20.00) Ratio POC Glucose (mg/dL) 134 H (75-99) mg/dL Calcium 8.2 L (8.7-10.3) mg/dL
[2021-11-07 17:09] LABS: Glucose,Whole Blood 146 mg/dL (75-99)
[2021-11-07] MEDS: SERTRALINE 100 MG TAB PO SCH (17:14)
[2021-11-07 20:14] LABS: Glucose,Whole Blood 106 mg/dL (75-99)
[2021-11-07] MEDS: ATORVASTATIN 80 MG TAB PO SCH (21:09)
[2021-11-08] MEDS: METOPROLOL TARTRATE 50 MG TAB PO SCH ×2 (00:43→07:51)
[2021-11-08] MEDS ORDERED: SODIUM CHLORIDE 0.9% 500 ML 500 ML IV ONE (02:53)
[2021-11-08] MEDS: PRAMIPEXOLE 1 MG TAB PO SCH ×2 (05:27→15:37)
[2021-11-08] MEDS: MORPHINE SULFATE ER 15 MG TABLET PO SCH ×2 (05:28→15:37)
[2021-11-08 07:03] LABS: Glucose,Whole Blood 87 mg/dL (75-99)
[2021-11-08] MEDS: INSULIN ASPART (NovoLOG) 100 UNIT/ML VIAL SQ SCH ×3 (07:15→17:37)
[2021-11-08] MEDS: APIXABAN 5 MG TAB PO SCH (07:48)
[2021-11-08] MEDS: FLUCONAZOLE 150 MG TAB PO SCH (07:48)
[2021-11-08] MEDS: FLECAINIDE 50 MG TAB PO SCH (07:48)
[2021-11-08] MEDS: FUROSEMIDE 20 MG TAB PO SCH (07:49)
[2021-11-08] MEDS: predniSONE 20 MG TAB PO SCH (07:49)
[2021-11-08] MEDS: LISINOPRIL-HCTZ 10-12.5 MG 1 EACH TAB PO SCH (07:49)
[2021-11-08] MEDS: SYMBICORT 160-4.5 MCG INHALER INHALATION SCH (08:53)
[2021-11-08] MEDS: IPRATROPIUM-ALBUTEROL 3 ML NEB INHALATION SCH ×3 (08:53→16:54)
--- NOTE | 2021-11-08 10:17 | P.PN ---
Subjective This is a 76-year-old gentleman with a past medical history significant for hypertension and dyslipidemia and sleep apnea and also chronic obstructive pulmonary disease, presented to the emergency department complaining of shortness of breath. 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 We consulted to see the patient for further evaluation of atrial fibrillation with RVR, abnormal cardiac enzymes and elevated troponin. In the emergency department he was in atrial fibrillation with RVR and subsequently converted to normal sinus mechanism after he was started on Cardizem IV. The patient underwent a workup including EKG as described earlier showing A. fib with diffuse nonspecific ST and T wave abnormalities. The chest x-ray and CT revealed bilateral pneumonia. On 10/15/21 Echocardiogram revealed an EF between 50 and 55% with mild mitral and tricuspid regurgitation, mild aortic valve sclerosis, and moderately enlarged right ventricle with left ventricular hypertrophy. On 10/27/21- Patient underwent Bronch with BAL, revealed organizing pneumonia. After bronch while on vent he has been bradycardic with HR's in the 40's and in and out of afib with conversion pauses up to 4 seconds. Therefore amio, metoprolol and Cardizem was held. After bronch he had symptoms of hemoptysis and his Eliquis was held. Patient was monitored on telemetry and his patient's medications were resumed. He was stopped on amiodarone secondary to concern of lung toxicity and therefore was started on flecainide for rhythm control. His hemoptysis resolved. His Eliquis was restarted with no further bleeding. His breathing has improved. He is currently maintained on Eliquis 5 mg twice a day, flecainide 50 mg twice a day and metoprolol tartrate 100 mg twice a day. Cardiology was reconsulted for bradycardia that was being seen when taking vital signs via pulse ox. Overnight patient was monitored on cardiac telemetry. Telemetry reviewed, patient in and out of atrial fibrillation in sinus mechanism. He did have episodes of sinus mechanism with heart rates 48-50s with occasional PACs. No significant bradycardia noted. Patient seen and examined. He is in no acute distress. He denies any chest pain. Meds: atorvastatin 80 mg nightly, Eliquis 5 mg twice a day, flecainide 50 mg twice a day, metoprolol tartrate 100 mg twice a day, Lasix 20 mg daily, lisinoprilhydrochlorothiazide 1012.5 mg twice a day PHYSICAL EXAM: VITAL SIGNS: Blood pressure 134/66, heart rate 88, afebrile, saturations greater than 92% on 4 L nasal cannula GENERAL: Well-developed in no acute distress. NECK: Supple. No JVD or thyromegaly LUNGS: Respirations even and unlabored. Lungs diminished with scattered rhonchi. HEART: Regular rate and rhythm. S1 and S2 heard. EXTREMITIES: Normal range of motion. No clubbing or cyanosis. Peripheral pulses intact. Trace bilateral lower extremity edema ASSESSMENT: Bilateral pneumonia Acute COPD exacerbation Hypoxemia secondary to the above New onset paroxysmal atrial fibrillation with RVR, currently in sinus mechanism this morning. Atypical atrial fluter Type II NSTEMI resulting from demand ischemia from RVR Obstructive sleep apnea Sinus bradycardia PLAN: From a cardiology perspective, patient is stable on current medication/rate con trol medications. Telemetry reviewed with no significant bradycardia, patient does go in and out of atrial fibrillation. We will follow the patient as needed at this time. Please reach out with any further questions or concerns. Continue metoprolol tartrate 100mg BID, Flecainide 50mg BID, Eliquis 5mg BID Continue statin Avoid amiodarone for now given pulmonary concern of lung toxicity per pulmonary. Patient may benefit from an event monitor as an outpatient. Patient to follow up with Dr. Betancourt as an outpatient Nurse practitioner note has been reviewed by physician. Signing provider agrees with the documented findings, assessment, and plan of care. Objective - Vital Signs Vital signs: Vital Signs Temp 97.9 F 11/08/21 01:59 Pulse 89 11/08/21 09:04 Resp 18 11/08/21 09:04 BP 134/66 11/08/21 07:52 Pulse Ox 96 11/08/21 08:54 Intake & Output 11/07/21 11/08/21 11/08/21 18:59 06:59 18:59 Intake Total 476 Output Total 400 600 Balance 76 -600 Intake: Oral 476 Output: Urine 400 600 Other: Voiding Method Urinal Urinal - Labs CBC & Chem 7: 11/07/21 05:29 11/07/21 05:29 Labs: Abnormal Lab Results - Last 24 Hours (Table) 11/07/21 11/07/21 11/07/21 Range/Units 05:29 05:29 12:10 WBC 16.99 H (4.50-10.00) X 10*3/uL RBC 4.05 L (4.40-5.60) X 10*6/uL MCV 101.0 H (80.0-97.0) fL MCH 32.3 H (27.0-32.0) pg RDW 15.9 H (11.5-14.5) % Immature Gran # 0.23 H (0.00-0.04) X 10*3/uL Neutrophils # 13.29 H (1.80-7.70) X 10*3/uL Eosinophils # 0.82 H (0.04-0.35) X 10*3/uL Sodium 134 L (135-145) mmol/L Chloride 94 L (96-109) mmol/L Carbon Dioxide 28.0 H (20.0-27.5) mmol/L BUN/Creatinine Ratio 38.14 H (12.00-20.00) Ratio POC Glucose (mg/dL) 134 H (75-99) mg/dL Calcium 8.2 L (8.7-10.3) mg/dL 11/07/21 11/07/21 Range/Units 17:08 20:12 WBC (4.50-10.00) X 10*3/uL RBC (4.40-5.60) X 10*6/uL MCV (80.0-97.0) fL MCH (27.0-32.0) pg RDW (11.5-14.5) % Immature Gran # (0.00-0.04) X 10*3/uL Neutrophils # (1.80-7.70) X 10*3/uL Eosinophils # (0.04-0.35) X 10*3/uL Sodium (135-145) mmol/L Chloride (96-109) mmol/L Carbon Dioxide (20.0-27.5) mmol/L BUN/Creatinine Ratio (12.00-20.00) Ratio POC Glucose (mg/dL) 146 H 106 H (75-99) mg/dL Calcium (8.7-10.3) mg/dL Microbiology - Last 24 Hours (Table) 10/27/21 13:29 Acid Fast Bacilli Smear - Final Bronchial Washings - Right Acid Fast Bacilli Culture - Preliminary
[2021-11-08] MEDS: SODIUM CHLORIDE 0.9% 500 ML 500 ML IV SCH (10:26)
[2021-11-08 11:36] LABS: Glucose,Whole Blood 120 mg/dL (75-99)
--- NOTE | 2021-11-08 11:44 | P.PN ---
Subjective Progress Note Date: 11/08/21 76-year-old male with a history of COPD, who presents to the emergency department on October 13, complaining of shortness of breath. The patient also complains of cough, dizziness, fever, chills, and phlegm production. The patient has been feeling well as mentioned above for at least 2-3 weeks. The patient was evaluated in the emergency department. He was found have atrial fibrillation with rapid ventricular response. In addition, his chest x-ray and CAT scan suggested pneumonia, with significant consolidation and abnormalities noted more so in the right lung that in the left. The patient has been vaccinated fully. We saw him in the emergency department, room 6, he was on BiPAP, with settings of IPAP 12, EPAP 6, and 60%. The patient was on IV heparin via weight based protocol, and a Cardizem drip at 15 mg an hour. The patient was lying flat in bed. He did not appear to have a great deal of respiratory difficulty. White count 22,000, hemoglobin 13, hematocrit 42.1, platelet count 326,000. PT 13, INR 1.2, PTT 38.3. D-dimer was 7.48. Sodium, potassium, chloride, CO2, and anion gap are all normal BUN was 38 creatinine of 1.53. Troponin was elevated at 2.06, 1.74, and 1.24. Testing for mae virus was negative. He was no pulmonary embolism on CT angiogram. In addition, there was mediastinal bilateral hilar lymphadenopathy, measuring up to 5.2 cm. The patient is seen today 10/15/2021 in follow-up on the selective care unit. He is currently resting comfortably in bed. He is alert in no acute distress. Off the BiPAP and currently on 9 L high flow nasal cannula. He has normal saline running at 100 ML's per hour. He is feeling a bit better today compared to yesterday. Still with a loose nonproductive cough. Sputum culture revealed no growth. Blood cultures reveal no growth. Urine legionella antigen negative. He remains on a heparin drip. Continued on Symbicort, DuoNeb inhalations, antibiotics in the form of ceftriaxone and azithromycin. Patient is seen today 10/16/2021 in follow-up on the selective care unit. He is currently resting fairly comfortably in bed. He is on BiPAP 12/660% FiO2. He has normal saline running at 20 ML's per hour. Continued on a heparin drip. Blood cultures revealed no growth. Sputum cultures revealed no growth. White count 24.6. Hemoglobin 11.9. Sodium 141. Potassium 4.2. Creatinine 0.67. He remains on DuoNeb inhalations, Symbicort, antibiotics in the form of azithromycin and ceftriaxone. This x-ray continues to show bilateral patchy air space disease right greater than left. Progress note dated 10/31/2021. The patient is again seen in room 366. Currently, he's on 7 L high flow nasal O2, with saturations in the low 90s. Clinically, the patient's feeling much better. The patient was in the intensive care unit yesterday, and was transferred out yesterday. His complaints include primarily shortness of breath. The patient apparently underwent bronchoscopy, and had biopsy showing organizing pneumonia. Subsequent to the biopsies, apparently he had some significant bleeding. Currently that has settled down. No new laboratory data today. Chest x-ray from October 30 shows consolidation throughout the right lung field, which is unchanged. The patient remains on budesonide, cefepime, formoterol, DuoNeb nebs, Solu-Medrol, and vancomycin. Progress note dated 11/01/2021. The patient is again seen in room 366. He's currently on 6 L nasal cannula. He is receiving saline at KVO. He is doing much better and feeling much better. The patient underwent bronchoscopy and biopsy showing organizing pneumonia. Subsequent to the biopsies, he had some bleeding, which is settled down. He denies any current bleeding or hemoptysis. No new laboratory data. The patient is seen today November 02 2021 in follow-up on the regular medical floor. He is currently resting comfortably in bed. Awake and alert in no acute distress. He's on 6 L high flow nasal cannula. His bronchoscopy with biopsy showed organizing pneumonia. He is feeling better daily. He is continued on IV Solu-Medrol, DuoNeb inhalations, Pulmicort and Perforomist inhalations. White count 15.8. Hemoglobin 12.8. Sodium 131. Potassium 4.0. Creatinine 0.62. The patient is seen today 11/04/2021 in follow-up on the regular medical floor. He is resting comfortably in bed. Awake and alert in no acute distress. Currently on 6 L high flow nasal cannula. Bronchial wash cultures positive for Teri only. Blood glucose 152. He is continued on DuoNeb inhalations, Symbicort, prednisone taper. Anticoagulated with Eliquis. The patient is seen today 11/05/2021 in follow-up on the regular medical floor. He is currently sitting up in bed. Awake and alert in no acute distress. is at the bedside. He is on 5 L high flow nasal cannula with O2 saturations at 96%. He's been afebrile. Hemodynamically stable. Bronchial wash cultures were negative other than for Teri. White count 15.0. Hemoglobin 13.9. Sodium 137. Potassium 4.3. Creatinine 0.6. Glucose 114. AST 22. ALT 55. He remains on DuoNeb inhalations, Symbicort, prednisone. Anticoagulated with Eliquis. The patient is seen today 11/08/2021 in follow-up on the regular medical floor. He is currently sitting up in bed. Awake and alert in no acute distress. He is currently down to 4 L/m per nasal cannula. Stated he slept well. Hoping to go home today. He is maintained on DuoNeb inhalations, Symbicort, prednisone tape r. He remains anticoagulated with Eliquis. Objective - Vital Signs Vital signs: Vital Signs Temp 97.9 F 11/08/21 01:59 Pulse 89 11/08/21 09:04 Resp 18 11/08/21 09:04 BP 134/66 11/08/21 07:52 Pulse Ox 96 11/08/21 08:54 Intake & Output 11/07/21 11/08/21 11/08/21 18:59 06:59 18:59 Intake Total 476 Output Total 400 600 Balance 76 -600 Intake: Oral 476 Output: Urine 400 600 Other: Voiding Method Urinal Urinal - Exam GENERAL EXAM: Alert, very pleasant 76-year-old gentleman, on 4 L high flow nasal cannula, fairly comfortable in no apparent distress. HEAD: Normocephalic. EYES: Normal reaction of pupils, equal size. NOSE: Clear with pink turbinates. THROAT: No erythema or exudates. NECK: No masses, no JVD. CHEST: No chest wall deformity. LUNGS: Equal air entry with coarse bilateral rhonchi CVS: S1 and S2 normal with no audible murmur, regular rhythm. ABDOMEN: No hepatosplenomegaly, normal bowel sounds, no guarding or rigidity. SPINE: No scoliosis or deformity SKIN: No rashes CENTRAL NERVOUS SYSTEM: No focal deficits, tone is normal in all 4 extremities. EXTREMITIES: There is no peripheral edema. No clubbing, no cyanosis. Peripheral pulses are intact. - Labs CBC & Chem 7: 11/07/21 05:29 11/07/21 05:29 Labs: Abnormal Lab Results - Last 24 Hours (Table) 11/07/21 11/07/21 11/07/21 Range/Units 12:10 17:08 20:12 POC Glucose (mg/dL) 134 H 146 H 106 H (75-99) mg/dL Microbiology - Last 24 Hours (Table) 10/27/21 13:29 Acid Fast Bacilli Smear - Final Bronchial Washings - Right Acid Fast Bacilli Culture - Preliminary Assessment and Plan Assessment: 1 Acute hypoxemic respiratory failure, multifactorial, in part related to bilateral pneumonia, right greater than left, completed ceftriaxone and azithromycin. Bronchoscopy revealed organizing pneumonia. Cultures negative other than for Teri 2 Atrial fibrillation with RVR. Currently better controlled. Maintained on Eliquis. 3 Mild/moderate acute kidney injury. 4 History of COPD. 5 History of hypertension. 6 History of obstructive sleep apnea syndrome. 7 History of skin cancer. 8 Prior history of pneumonia. 9 Prior history of tobacco use. Plan: The patient was seen and evaluated Improved and on 4 L No further hemoptysis Continued on DuoNeb inhalations Continue Symbicort, prednisone Anticoagulated with Eliquis Titrate the FiO2 as tolerated Will need home oxygen Cleared for discharge from the pulmonary standpoint I, the cosigning physician, performed a history & physical examination of the patient. Lungs sounds with few scattered rhonchi. Maintaining O2 saturations in the 90s on 4 L high flow nasal cannula. I discussed the assessment and plan of care with my nurse practitioner, Margy Reyes. I attest to the above note as dictated by her. I have personally seen and examined the patient, performed the documentation and the assessment and plan as written. Number of minutes spent on the visit: 10.
[2021-11-08 14:09] VITALS: BP 93/50; PULSE 50; RESP 18; TEMP 98.9
--- NOTE | 2021-11-08 14:41 | CDI ---
Documentation Clarification Form Date: 11/08/2021 02:25:40 PM From: Che Dobbins CCS, CCDS Admit Date: 10/13/2021 02:46:00 PM Patient Name: Rodríguez Solano Visit Number: [id number] Discharge Date: ATTENTION: The Clinical Documentation Specialists (CDI) and [facility] Coding Staff appreciate your assistance in clarifying documentation. Please respond to the clarification below the line at the bottom and electronically sign. The CDI & [facility] Coding staff will review the response and follow-up if needed. Please note: Queries are made part of the Legal Health Record. If you have any questions, please contact the author of this message via ITS. Dr. Meliza Mobley: Sepsis and Severe Sepsis is documented throughout the chart beginning with the 10/13 History & Physical and continued in Progress Notes through 11/03. Sepsis is not documented in subsequent documentation. Clarification is requested regarding the diagnosis of Sepsis and Severe Sepsis. History/Risk Factors per the 10/13 H/P: COPD, Hypertension, Obstructive Sleep Apnea, Obesity (BMI 35.7), DJD, Former smoker. Clinical Indicators: Presented to the ED on 10/13 with SOB, worsening cough, Pulse Ox in 70s. Fully vaccinated against COVID. Pt was hypotensive, tachycardic & hypoxic on arrival, he had been sick for 2 weeks. Had bilateral wheezing & rhonchi. Was also in Atrial Fibrillation. Admit with Acute exacerbation of COPD, Pneumonia, Elevated Troponin and Atrial Fibrillation with RVR. Per the 10/13 H/P: Severe Sepsis from Bilateral Pneumonia, suspect Gram-Negative. 10/13 VS: T 97.8, 97.4; P 115 - 124; R 30 (SOB, Labored, Accessory use, nasal Flaring, Talks in Phrases, Tachypnea), BP 139/74, 88/58; PO 75 RA - 95 100% BiPAP, BMI: 35.7 10/13 LAB: WBC 25.6, Neut 10.70, D Dimer 7.48, BUN 38, Creatinine 1.53, Magnesium 2.4, Lactic Acid 3.8, 1.7; Troponin 1.740, 1.240. 10/13 CXR: Correlate for Pneumonia, Edema. Treatment 10/13: Pulmonary Consult, O2, INH Ventolin 2 puffs x1, IV Solumedrol 125 mg x1, IV Na Cl 999 mls/hr q31M, IV Azithromycin 250 mls/hr x1, IV Rocephin 2,000 mg x1, IV Na Cl 50 mls/hr q20H, IV Heparin x1, IV Cardizem 125 mls @ 5 mls/hr q24H, INH Duoneb q4H/prn, IV Cefepime 100 mls @ 25 mls/hr q8H. Please clarify the following: [ ] Sepsis, Present on Admission, resolved [ ] Sepsis, Present on Admission, remains under treatment [ ] Sepsis, Not Present on Admission, resolved or remains under treatment [ ] Sepsis with Severe Sepsis without Shock, Present on Admission [ ] Sepsis with Severe Sepsis without Shock, Not present on Admission [ ] Other condition, please specify: [ ] Unable to determine (Template Last Revised: November 2020) Unable to determine MTDD
[2021-11-08] MEDS: SERTRALINE 100 MG TAB PO SCH (15:37)
--- NOTE | 2021-11-10 23:53 | P.DS ---
Providers Date of admission: 10/13/21 14:46 Expected date of discharge: 11/08/21 Attending physician: Saurav Teixeira Consults: 10/13/21 14:46 Consult Physician Routine Consulting Provider: Elmo Betancourt Consult Reason/Comments: COPD, pneumonia, elevated troponin Do you want consulting provider notified?: Already Contacted Consult Physician Routine Consulting Provider: Seymour Griffin Consult Reason/Comments: COPD, pneumonia, hypoxia Do you want consulting provider notified?: Already Contacted 10/27/21 17:03 Consult Physician Urgent Consulting Provider: Nicolas Montes Consult Reason/Comments: asystole pauses sinus charles Do you want consulting provider notified?: Already Contacted 11/07/21 14:47 Consult Physician Routine Consulting Provider: Elmo Betancourt Consult Reason/Comments: bradycardia Do you want consulting provider notified?: Yes, Notify in am Primary care physician: Aly Sultana [facility] Course: Final diagnosis Acute hypoxemic respiratory failure, multifactorial with bilateral pneumonia status post bronchoscopy COPD, acute exacerbation Atrial fibrillation with RVR, currently rate controlled on metoprolol, flecainide Bradycardia Acute renal failure Hypertension obstructive sleep apnea dvt prophylaxis GI prophylaxis Full code Discharge disposition Patient is being discharged in a stable condition with guarded prognosis to home with homecare. Patient will follow-up with Dr. Sultana in the outpatient setting upon discharge. Patient is to also follow up with cardiology and pulmonary in the outpatient setting. Patient to complete a short prednisone taper on discharge to complete the course. Total time taken is greater than 35 minutes. Hospital course This is a 76-year-old male who was recently admitted with shortness of breath and was also found to be in atrial fibrillation with RVR and was being closely monitored. Patient also with pneumonia. Pulmonary and cardiology following closely. Patient is status post bronchoscopy and has completed a course of antibiotics. Patient had been tapering oral steroids and will continue on discharge. Patient is being arranged with 4[facility] via ID of on discharge to manage COPD. Patient is requesting to go home. Currently no reports of chest pain, worsening shortness of breath, or palpitations. Patient is afebrile. No reports of nausea or vomiting and patient is tolerating diet. Patient will be discharged home today. Guarded prognosis. On exam vital signs are stable. Cardio S1, S2 are muffled. Respiratory system shows diminished breath sounds at the bases with some scattered rhonchi noted. Abdomen is soft and obese, and nontender. Nervous system shows no focal deficits. Please refer to medication reconciliation sheet for a list of medications. The impression and plan of care has been dictated by Libra Melton, nurse practitioner as directed. MD Martínez I have performed a history and examination and MDM of this patient, discussed the same with the dictator, and agree with the dictator's assessment and plan as written ,documented as a scribe. Based on total visit time, I have performed more than 50% of the visit. Any additional findings or plans will be noted. Patient Condition at Discharge: Fair Plan - Discharge Summary Discharge Rx Participant: No New Discharge Prescriptions: New Apixaban [Eliquis] 5 mg PO BID #60 tab Flecainide [Tambocor] 50 mg PO Q12HR 30 Days #60 tab Atorvastatin [Lipitor] 80 mg PO HS 30 Days #30 tab predniSONE [Deltasone] 20 mg PO DAILY #10 tab Ipratropium-Albuterol Nebulize [Duoneb 0.5 mg-3 mg/3 ml Soln] 3 ml INHALATION RT-QID 30 Days #120 ml Ipratropium-Albuterol Nebulize [Duoneb 0.5 mg-3 mg/3 ml Soln] 3 ml INHALATION RT-Q4H PRN ml PRN Reason: Shortness Of Breath Or Wheezing Furosemide [Lasix] 20 mg PO DAILY #30 tab Metoprolol Tartrate [Lopressor] 100 mg PO BID 30 Days #120 tab Fluconazole [Diflucan] 150 mg PO DAILY 5 Days #5 tab Lisinopril-Hctz 10-12.5 mg [Zestoretic 10-12.5] 1 each PO BID 30 Days #60 tab Continue Pramipexole [Mirapex] 1 mg PO BID@0600,1600 Sertraline [Zoloft] 100 mg PO DAILY@1600 Morphine Sulfate ER [Ms Contin] 15 mg PO BID@0600,1600 HYDROcodone/APAP 10-325MG [Aurora 10-325] 1 tab PO Q6H Budesonide-Formot 160-4.5 Mcg [Symbicort 160-4.5 Mcg Inhaler] 2 puff INHALATION RT-BID PRN PRN Reason: Shortness Of Breath Albuterol Inhaler [Ventolin Hfa Inhaler] 2 puff INHALATION RT-QID PRN PRN Reason: Shortness Of Breath Discontinued Tiotropium 18 Mcg/Puff [Spiriva] 1 cap INHALATION RT-DAILY Metoprolol Succinate [Toprol XL] 25 mg PO DAILY@1600 lisinopriL [Zestril] 10 mg PO DAILY@1600 Discharge Medication List Budesonide-Formot 160-4.5 Mcg [Symbicort 160-4.5 Mcg Inhaler] 2 puff INHALATION RT-BID PRN 03/31/19 [History] HYDROcodone/APAP 10-325MG [Aurora 10-325] 1 tab PO Q6H 03/31/19 [History] Morphine Sulfate ER [Ms Contin] 15 mg PO BID@0600,1600 03/31/19 [History] Pramipexole [Mirapex] 1 mg PO BID@0600,1600 03/31/19 [History] Sertraline [Zoloft] 100 mg PO DAILY@1600 03/31/19 [History] Albuterol Inhaler [Ventolin Hfa Inhaler] 2 puff INHALATION RT-QID PRN 10/13/21 [History] Apixaban [Eliquis] 5 mg PO BID #60 tab 10/17/21 [Rx] Atorvastatin [Lipitor] 80 mg PO HS 30 Days #30 tab 11/03/21 [Rx] Flecainide [Tambocor] 50 mg PO Q12HR 30 Days #60 tab 11/03/21 [Rx] Metoprolol Tartrate [Lopressor] 100 mg PO BID 30 Days #120 tab 11/03/21 [Rx] Fluconazole [Diflucan] 150 mg PO DAILY 5 Days #5 tab 11/08/21 [Rx] Furosemide [Lasix] 20 mg PO DAILY #30 tab 11/08/21 [Rx] Ipratropium-Albuterol Nebulize [Duoneb 0.5 mg-3 mg/3 ml Soln] 3 ml INHALATION RT-Q4H PRN ml 11/08/21 [Rx] Ipratropium-Albuterol Nebulize [Duoneb 0.5 mg-3 mg/3 ml Soln] 3 ml INHALATION RT-QID 30 Days #120 ml 11/08/21 [Rx] Lisinopril-Hctz 10-12.5 mg [Zestoretic 10-12.5] 1 each PO BID 30 Days #60 tab 11/08/21 [Rx] predniSONE [Deltasone] 20 mg PO DAILY #10 tab 11/08/21 [Rx] Follow up Appointment(s)/Referral(s): Aly Sultana DO [Primary Care Provider] - 1-2 days (office will call with appointment time) Elmo Betancourt MD [STAFF PHYSICIAN] - 2 Weeks (Office not answering. Please call to schedule appointment) [facility] [NON-STAFF] - As Needed (oxygen) Victorino Underwood MD [STAFF PHYSICIAN] - 11/24/21 2:30 pm [facility] Visiting Nurse, [NON-STAFF] - Ambulatory/Diagnostic Orders: Complete Blood Count w/diff [LAB.AMB] Time Frame: 3 Days, Location: None Selected Patient Instructions/Handouts: Flecainide (By mouth), Apixaban (By mouth), A- fib (Atrial Fibrillation) (ED) Activity/Diet/Wound Care/Special Instructions: Activity Limited until follow-up Follow-up with pulmonary outpatient Follow-up with cardiology outpatient Dr. Betancourt in 1-2 weeks Continue taking medications as prescribed Continue heart healthy consistent carb diabetic diet Recommend repeat labs of CBC and BMP in 2-3 days Follow-up with primary care provider on discharge Discharge Disposition: HOME WITH HOME HEALTH SERVICES
== END 2021-11-08 17:50 | disposition home health service (06) | DRG 163 ==
LOC: EC 11:48 → 2SICU 14:46 → 3SCARD 10-14 19:48 → 2SICU 10-27 14:19 → 3SCARD 10-30 18:22 → 4SSUR 11-03 19:24
PROVIDERS: ADMIT Hospitalist; ATTEND Hospitalist
PROC: 5A09357 Assistance with Respiratory Ventilation, Less than 24 Consecutive Hours, Continuous Positive Airway Pressure (ICD-10-PCS; 2021-10-13)
PROC: 0BDD8ZX Extraction of Right Middle Lung Lobe, Via Natural or Artificial Opening Endoscopic, Diagnostic (ICD-10-PCS; principal; 2021-10-27 12:40)
PROC: 0BBD8ZX Excision of Right Middle Lung Lobe, Via Natural or Artificial Opening Endoscopic, Diagnostic (ICD-10-PCS; principal; 2021-10-27 12:40)
PROC: 0W3Q8ZZ Control Bleeding in Respiratory Tract, Via Natural or Artificial Opening Endoscopic (ICD-10-PCS; principal; 2021-10-27 12:40)
PROC: 0BBF8ZX Excision of Right Lower Lung Lobe, Via Natural or Artificial Opening Endoscopic, Diagnostic (ICD-10-PCS; principal; 2021-10-27 12:40)
PROC: 0BD38ZX Extraction of Right Main Bronchus, Via Natural or Artificial Opening Endoscopic, Diagnostic (ICD-10-PCS; principal; 2021-10-27 12:40)
PROC: 0BD78ZX Extraction of Left Main Bronchus, Via Natural or Artificial Opening Endoscopic, Diagnostic (ICD-10-PCS; principal; 2021-10-27 12:40)
PROC: 0BDF8ZX Extraction of Right Lower Lung Lobe, Via Natural or Artificial Opening Endoscopic, Diagnostic (ICD-10-PCS; principal; 2021-10-27 12:40)
PROC: 0BH17EZ Insertion of Endotracheal Airway into Trachea, Via Natural or Artificial Opening (ICD-10-PCS; 2021-10-27 12:40)
PROC: 5A1935Z Respiratory Ventilation, Less than 24 Consecutive Hours (ICD-10-PCS; 2021-10-27 12:40)
DX: J18.9 Pneumonia, unspecified organism (principal); G93.41 Metabolic encephalopathy; I21.A1 Myocardial infarction type 2; J96.01 Acute respiratory failure with hypoxia; B37.1 Pulmonary candidiasis; B37.0 Candidal stomatitis; E87.2 Acidosis; N17.9 Acute kidney failure, unspecified; R04.2 Hemoptysis; I48.4 Atypical atrial flutter; T38.0X5A Adverse effect of glucocorticoids and synthetic analogues, initial encounter; T36.95XA Adverse effect of unspecified systemic antibiotic, initial encounter; Z85.828 Personal history of other malignant neoplasm of skin; E66.9 Obesity, unspecified; Z68.35 Body mass index [BMI] 35.0-35.9, adult; I08.3 Combined rheumatic disorders of mitral, aortic and tricuspid valves; E78.5 Hyperlipidemia, unspecified; G25.81 Restless legs syndrome; I10 Essential (primary) hypertension; J43.9 Emphysema, unspecified; F32.A Depression, unspecified; Z20.822 Contact with and (suspected) exposure to COVID-19; F41.9 Anxiety disorder, unspecified; R59.0 Localized enlarged lymph nodes; G47.00 Insomnia, unspecified; G47.33 Obstructive sleep apnea (adult) (pediatric); H91.93 Unspecified hearing loss, bilateral; I48.0 Paroxysmal atrial fibrillation; I49.3 Ventricular premature depolarization; K59.00 Constipation, unspecified; M15.9 Polyosteoarthritis, unspecified; Z79.51 Long term (current) use of inhaled steroids; Z79.82 Long term (current) use of aspirin; Z79.899 Other long term (current) drug therapy; Z87.01 Personal history of pneumonia (recurrent); Z87.440 Personal history of urinary (tract) infections; Z87.891 Personal history of nicotine dependence; Z98.890 Other specified postprocedural states
CPT/HCPCS: 31624; 31625; 36415; 36600; 71045; 71275; 80048; 80053; 80202; 82565; 82805; 83605; 83735; 83880; 84145; 84484; 85025; 85027; 85379; 85610; 85730; 87040; 87070; 87102; 87116; 87205; 87206; 87252; 87449; 87496; 87498; 87502; 87529; 87634; 87635; 87798; 88108; 88305; 93005; 93306; 94002; 94003; 94640; 94660; 94760; 96374; 96375; 99291

== ENCOUNTER → 2024-03-12 | Day surgery (SDC) | payer MEDICARE ==
[2024-03-10 10:05] VITALS: BMI 33.3
[~2024-03-12] MED LIST changes: -ALBUTEROL NEB (CONC) 2.5 MG/0.5 ML INHALATION ONE; +GLYCOPYRROLATE 0.2 MG/ML 2 ML VIAL ONE; -LIDOCAINE 1% 20 ML VIAL (10MG/ML) FOR IV START INTRADERMA PRN; +LIDOCAINE 1% INJ 10MG/ML (20 ML MDV) ONE; -LIDOCAINE 2% (PF) 20 MG/ML 5 ML VIAL INHALATION ONE; -LIDOCAINE VISCOUS 300 MG/15 ML CUP MUCOUS MEM ONE; +PROPOFOL 10 MG/ML 20 ML VIAL IV ONE; -SODIUM CHLORIDE 0.9% 1,000 ML IV SCH
[2024-03-12 12:46] VITALS: TEMP 96.9
[2024-03-12] MEDS: IV FLUID CONTINUATION 1,000 ML IV ONE ×2 (12:55→13:29)
[2024-03-12] MEDS: LIDOCAINE 1% (10MG/ML) FOR IV START INTRADERMA PRN (12:56)
[2024-03-12] MEDS: LACTATED RINGERS 1,000 ML IV SCH (12:56)
[2024-03-12] MEDS: LIDOCAINE 2% (PF) 20 MG/ML 2 ML VIAL INHALATION ONE (13:15)
[2024-03-12 13:32] VITALS: RESP 16
--- NOTE | 2024-03-12 13:37 | PCN ---
PROCEDURE NOTE PULMONARY/CRITICAL CARE PROCEDURE NOTE: PROCEDURES PERFORMED: Bronchoscopy, airway examination, therapeutic lavage, BAL right middle lobe. PREOPERATIVE DIAGNOSES: Chronic obstructive pulmonary disease exacerbation, retained secretions, acute bronchitis. POSTOPERATIVE DIAGNOSES: Chronic obstructive pulmonary disease exacerbation, retained secretions, acute bronchitis. INNERSOLE MAKER: Dr. Griffin. FIRST MIRROR SILVERER: Dr. Margy Reyes. ANESTHESIA PROVIDED: Monitored anesthesia care. The patient's procedure took place in room #1. There was informed consent and universal timeout. DESCRIPTION OF PROCEDURE: After the patient was adequately sedated and being fully monitored, the bronchoscope was inserted through the right nostril. It passed through the right nasopharynx into the oropharynx. The hypopharynx was identified and topicalized. There were secretions noted within the hypopharynx. The structures including the anterior commissure, true cords, false cords, arytenoids, piriform sinuses, right and left, vallecula, and epiglottis, all appeared normal. The glottic opening was topicalized. The bronchoscope was pushed through the glottic opening into the trachea. There were thick yellow secretions noted throughout the trachea. They were difficult to suction. Saline was used to remove the secretions. 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 The tracheal jp itself was sharp. The right and left mainstem were topicalized. Right upper lobe and its 3 segments, right middle lobe and its 2 segments, right lower lobe and its 5 segments, left upper lobe proper and its 2 segments, lingula and its 2 segments, and left lower lobe and its 4 segments all had similar findings of moderate to severe bronchitis. There was significant airway erythema and hyperemia. The airways were inflamed significantly. There was significant vascular engorgement. There was some mucosal friability. There was no dominant mass or tumor. The bronchoscope was wedged into the right middle lobe. A formal BAL took place. 30 mL of turbid fluid was recovered. The patient tolerated the procedure well without any complication. The bronchoscope was withdrawn and the patient will be recovered. MMODL / IJN: [id number] /
[2024-03-12 13:47] VITALS: BP 124/78; PULSE 75
[2024-03-13 14:53] LABS: Appearance,BF Cloudy (Clear); RBC, Body Fluid 695 /UL (0-2000)
[2024-03-14 08:59] LABS: Nucleated Cells, Body Fluid 180 /UL
== END ==
LOC: ORWHC2ENDO 12:09
PROVIDERS: ATTEND Internal Medicine Critical Care Medicine
DX: J20.9 Acute bronchitis, unspecified (principal); J44.0 Chronic obstructive pulmonary disease with (acute) lower respiratory infection; J44.1 Chronic obstructive pulmonary disease with (acute) exacerbation; Z87.01 Personal history of pneumonia (recurrent); I48.91 Unspecified atrial fibrillation; E78.5 Hyperlipidemia, unspecified; I10 Essential (primary) hypertension; G89.29 Other chronic pain; G47.33 Obstructive sleep apnea (adult) (pediatric); F32.9 Major depressive disorder, single episode, unspecified; E66.9 Obesity, unspecified; Z68.33 Body mass index [BMI] 33.0-33.9, adult; Z79.899 Other long term (current) drug therapy; Z87.891 Personal history of nicotine dependence; Z80.1 Family history of malignant neoplasm of trachea, bronchus and lung; Z79.891 Long term (current) use of opiate analgesic
CPT/HCPCS: 88108; 88305; 89050; 87070; 87205; 87116; 87102; 87206; 31624; J2001 ×2; J2704

== ENCOUNTER 2024-06-09 17:35 | Inpatient (IN) | payer MEDICARE ==
--- NOTE | 2024-06-09 18:04 | ED ---
General Adult HPI - General Source: patient, RN notes reviewed <Piper Estarda - Last Filed: 06/09/24 18:03> - General Source: patient, family, RN notes reviewed Mode of arrival: ambulatory Limitations: no limitations <Philippe Wong - Last Filed: 06/09/24 19:45> - General Stated complaint: Hypertension Time Seen by Provider: 06/09/24 17:48 - History of Present Illness Initial comments: Quick [id number] male presents emergency department for chief complaint of hypertension. Patient to monitor his blood pressure multiple times throughout the day and was elevated in the 180s over 110s. Currently he is denying chest pain, heart palpitations, dizziness or lightheadedness. 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 (Piper Estrada) 78-year-old male presents emergency department chief complaint of hypertension, shortness of breath. Patient has known COPD. Patient significant other states that his blood pressure has been elevated throughout the day with diastolics over 110. Patient denies any complaints of chest pain or palpitations but he states he feels weak, rundown and short of breath. Patient has known COPD in which she is followed by Dr. Lenz. Patient's had recurrent pneumonia issues. Patient does have a history of A-fib does not take any current blood thinners. (Philippe Wong) - Related Data Home Medications Medication Instructions Recorded Confirmed Budesonide-Formot 160-4.5 Mcg 2 puff INHALATION BID 03/31/19 03/12/24 [Symbicort 160-4.5 Mcg Inhaler] HYDROcodone/APAP 10-325MG [[place] 1 tab PO Q6H 03/31/19 03/12/24 10-325] Morphine Sulfate ER [Ms Contin] 15 mg PO BID 03/31/19 03/12/24 Pramipexole [Mirapex] 1 mg PO BID 03/31/19 03/12/24 Sertraline [Zoloft] 100 mg PO DAILY 03/31/19 03/12/24 Albuterol Inhaler [Ventolin Hfa 2 puff INHALATION QID 10/13/21 03/12/24 Inhaler] Budesonide/Glycopyr/Formoterol 1 puff INHALATION BID 03/10/24 03/12/24 [Breztri Aerosphere Inhaler] Ipratropium-Albuterol Nebulize 3 ml INHALATION Q4H PRN 03/10/24 03/12/24 [Duoneb 0.5 mg-3 mg/3 ml Soln] Previous Rx's Medication Instructions Recorded Metoprolol Tartrate [Lopressor] 100 mg PO BID 30 Days #120 tab 11/03/21 Lisinopril-Hctz 10-12.5 mg 1 each PO BID 30 Days #60 tab 11/08/21 [Zestoretic 10-12.5] Allergies Allergy/AdvReac Type Severity Reaction Status Date / Time No Known Allergies Allergy Verified 06/09/24 18:05 Review of Systems ROS Other: All systems not noted in ROS Statement are negative. <Piper Estrada - Last Filed: 06/09/24 18:03> ROS Other: All systems not noted in ROS Statement are negative. <Philippe Wong - Last Filed: 06/09/24 19:45> ROS Statement: Those systems with pertinent positive or pertinent negative responses have been documented in the HPI. Past Medical History Past Medical History: Atrial Fibrillation, Cancer, COPD, Hypertension, Osteoarthritis (OA), Pneumonia, Sleep Apnea/CPAP/BIPAP Additional Past Medical History / Comment(s): Recent dizziness and SOB. Hx tracheobronchitis. No device used for Sleep Apnea. Degenerative disc disease, arthritis in multiple joints, RLS. Hx skin cancer. Hx A-Fib in 2021, no trouble since. Circulation issues in feet. History of Any Multi-Drug Resistant Organisms: None Reported Past Surgical History: Hernia Repair, Orthopedic Surgery Additional Past Surgical History / Comment(s): Cervical disc removed, cyst removed from tailbone, bronchoscopy/BAL, UVPPP, right inguinal hernia repair, skin cancer removal, colonoscopy. Past Anesthesia/Blood Transfusion Reactions: Previous Problems w/ Anesthesia Additional Past Anesthesia/Blood Transfusion Reaction / Comment(s): "Blood pressure dropped." Past Psychological History: Depression Smoking Status: Former smoker Past Alcohol Use History: None Reported Additional Past Alcohol Use History / Comment(s): Quit smoking in 1979. Past Drug Use History: None Reported - Past Family History Mother Family Medical History: Cancer Additional Family Medical History / Comment(s): Lung cancer. Father Additional Family Medical History / Comment(s): Heart disease. <Piper Estrada - Last Filed: 06/09/24 18:03> General Exam <LaynetwinPiper - Last Filed: 06/09/24 18:03> Limitations: no limitations General appearance: alert, in no apparent distress Head exam: Present: atraumatic, normocephalic, normal inspection Eye exam: Present: normal appearance, PERRL, EOMI. Absent: scleral icterus, conjunctival injection, periorbital swelling ENT exam: Present: normal exam, normal oropharynx, mucous membranes moist Neck exam: Present: normal inspection, full ROM. Absent: tenderness, meningismus, lymphadenopathy Respiratory exam: Present: wheezes, rhonchi. Absent: normal lung sounds bilaterally, respiratory distress, rales, stridor Cardiovascular Exam: Present: tachycardia, irregular rhythm, normal heart sounds. Absent: systolic murmur, diastolic murmur, rubs, gallop, clicks GI/Abdominal exam: Present: soft, normal bowel sounds. Absent: distended, tende rness, guarding, rebound, rigid Extremities exam: Absent: pedal edema Neurological exam: Present: alert, oriented X3, CN II-XII intact <Philippe Wong - Last Filed: 06/09/24 19:45> - General Exam Comments Initial Comments: Visual Physical Exam Vital signs reviewed General: Well-appearing, nontoxic, no acute distress. Head: Normocephalic, atraumatic Eyes: PERRLA, EOMI ENT: Airway patent Chest: Nonlabored breathing Skin: No visual rash, normal skin tone Neuro: Alert and oriented 3 Musculoskeletal: No gross abnormalities (Piper Estrada) Course Vital Signs 06/09/24 06/09/24 06/09/24 18:01 18:55 19:04 Temperature 98 F Pulse Rate 150 H 105 H 149 H Respiratory 18 Rate Blood Pressure 147/78 EKG Findings - EKG Comments: EKG Findings:: EKG performed at 18: 12 atrial flutter with RVR rate of 153 QRS 96 QT/QTc 312/399 - EKG Results: EKG: interpreted by ERMD <Philippe Wong - Last Filed: 06/09/24 19:45> Medical Decision Making <Piper Estrada - Last Filed: 06/09/24 18:03> - Lab Data Result diagrams: 06/09/24 18:23 06/09/24 18:23 <Philippe Wong - Last Filed: 06/09/24 19:45> - Medical Decision Making I completed the quick note portion of this chart signed Piper Estrada PA-C (Piper Estrada) Was pt. sent in by a medical professional or institution (, TED, TELECOMMUNICATIONS CONSULTANT, urgent care, hospital, or jail...) When possible be specific @ -No Did you speak to anyone other than the patient for history (EMS, parent, family, police, friend...)? What history was obtained from this source @ -No Did you review nursing and triage notes (agree or disagree)? Why? @ -I reviewed and agree with nursing and triage notes Were old charts reviewed (outside hosp., previous admission, EMS record, old EKG, old radiological studies, urgent care reports/EKG's, jail records)? Report findings @ -No old charts were reviewed Differential Diagnosis (chest pain, altered mental status, abdominal pain women, abdominal pain men, vaginal bleeding, weakness, fever, dyspnea, syncope, headache, dizziness, GI bleed, back pain, seizure, CVA, palpatations, mental health, musculoskeletal)? @ -Differential Dyspnea: Coronary syndrome, arrhythmia, tamponade, asthma, COPD, pulmonary embolism, pneumonia, pneumothorax, pulmonary effusion, anaphylaxis, diabetic ketoacidosis, flailed chest, pulmonary contusion, diaphragmatic rupture, anemia, neuromuscular, this is not meant to be an all-inclusive list. EKG interpreted by me (3pts min.). @ -As above X-rays interpreted by me (1pt min.). @ -Chest x-ray shows no acute cardiopulmonary process CT interpreted by me (1pt min.). @ -None done U/S interpreted by me (1pt. min.). @ -None done What testing was considered but not performed or refused? (CT, X-rays, U/S, labs)? Why? @ -None What meds were considered but not given or refused? Why? @ -None Did you discuss the management of the patient with other professionals (professionals i.e. TED Manzanares, TELECOMMUNICATIONS CONSULTANT, lab, RT, psych nurse, social science manager, university teacher, teacher, compliance review officer, case worker)? Give summary @ -EMH for admission Was smoking cessation discussed for >3mins.? @ -No Was critical care preformed (if so, how long)? @ -35 minutes Were there social determinants of health that impacted care today? How? (Cate elessness, low income, unemployed, alcoholism, drug addiction, transportation, low edu. Level, literacy, decrease access to med. care, nursing home, rehab)? @ -No Was there de-escalation of care discussed even if they declined (Discuss DNR or withdrawal of care, Hospice)? DNR status @ -No What co-morbidities impacted this encounter? (DM, HTN, Smoking, COPD, CAD, Cancer, CVA, ARF, Chemo, Hep., AIDS, mental health diagnosis, sleep apnea, morbid obesity)? @ -COPD, A-fib Was patient admitted / discharged? Hospital course, mention meds given and route, prescriptions, significant lab abnormalities, going to OR and other pertinent info. @ -Admitted patient presented for hypertension but found to be in A-fib RVR patient started on Cardizem, heparin. Heart rate is improving. Patient does have COPD is having moderate exacerbation. Patient will be admitted for steroids, breathing treatments, cardiology valuation pulmonary evaluation Undiagnosed new problem with uncertain prognosis? @ -No Drug Therapy requiring intensive monitoring for toxicity (Heparin, Nitro, Insulin, Cardizem)? @ -Heparin, Cardizem Were any procedures done? @ -No Diagnosis/symptom? @ -COPD exacerbation, A-fib RVR Acute, or Chronic, or Acute on Chronic? @ -Acute Uncomplicated (without systemic symptoms) or Complicated (systemic symptoms)? @ -Complicated Side effects of treatment? @ -No Exacerbation, Progression, or Severe Exacerbation? @ -Exacerbation COPD Poses a threat to life or bodily function? How? (Chest pain, [place], [place], pneumonia, PE, COPD, DKA, ARF, appy, cholecystitis, CVA, Diverticulitis, Homicidal, Suicidal, threat to staff... and all critical care pts) @ -Yes respiratory failure COPD (Philippe Wong) - Lab Data Lab Results 06/09/24 06/09/24 06/09/24 Range/Units 18:23 18:23 18:23 WBC 10.7 H (3.8-10.6) k/uL RBC 4.90 (4.30-5.90) m/uL Hgb 16.0 (13.0-17.5) gm/dL Hct 49.6 (39.0-53.0) % MCV 101.1 H (80.0-100.0) fL MCH 32.5 (25.0-35.0) pg MCHC 32.2 (31.0-37.0) g/dL RDW 12.7 (11.5-15.5) % Plt Count 387 (150-450) k/uL MPV 7.1 Neutrophils % 67 % Lymphocytes % 18 % Monocytes % 5 % Eosinophils % 9 % Basophils % 1 % Neutrophils # 7.1 (1.3-7.7) k/uL Lymphocytes # 1.9 (1.0-4.8) k/uL Monocytes # 0.5 (0-1.0) k/uL Eosinophils # 0.9 H (0-0.7) k/uL Basophils # 0.1 (0-0.2) k/uL PT (10.0-12.5) sec INR (<1.2) APTT (22.0-30.0) sec Sodium 138 (137-145) mmol/L Potassium 4.1 (3.5-5.1) mmol/L Chloride 105 (98-107) mmol/L Carbon Dioxide 24 (22-30) mmol/L Anion Gap 9 mmol/L BUN 10 (9-20) mg/dL Creatinine 0.60 L (0.66-1.25) mg/dL Est GFR (CKD-EPI)AfAm >90 (>60 ml/min/1.73 sqM) Est GFR (CKD-EPI)NonAf >90 (>60 ml/min/1.73 sqM) Glucose 140 H (74-99) mg/dL Plasma Lactic Acid Yobani (0.7-2.0) mmol/L Calcium 9.7 (8.4-10.2) mg/dL Magnesium 2.1 (1.6-2.3) mg/dL Total Bilirubin 1.6 H (0.2-1.3) mg/dL AST 36 (17-59) U/L ALT 23 (4-49) U/L Alkaline Phosphatase 79 (38-126) U/L Troponin I <0.012 (0.000-0.034) ng/mL NT-Pro-B Natriuret Pep 631 pg/mL Total Protein 7.5 (6.3-8.2) g/dL Albumin 4.6 (3.5-5.0) g/dL Influenza Type A (PCR) (Not Detectd) Influenza Type B (PCR) (Not Detectd) RSV (PCR) (Not Detectd) SARS-CoV-2 (PCR) (Not Detectd) 06/09/24 06/09/24 06/09/24 Range/Units 18:23 18:23 18:23 WBC (3.8-10.6) k/uL RBC (4.30-5.90) m/uL Hgb (13.0-17.5) gm/dL Hct (39.0-53.0) % MCV (80.0-100.0) fL MCH (25.0-35.0) pg MCHC (31.0-37.0) g/dL RDW (11.5-15.5) % Plt Count (150-450) k/uL MPV Neutrophils % % Lymphocytes % % Monocytes % % Eosinophils % % Basophils % % Neutrophils # (1.3-7.7) k/uL Lymphocytes # (1.0-4.8) k/uL Monocytes # (0-1.0) k/uL Eosinophils # (0-0.7) k/uL Basophils # (0-0.2) k/uL PT 11.0 (10.0-12.5) sec INR 1.0 (<1.2) APTT 27.2 (22.0-30.0) sec Sodium (137-145) mmol/L Potassium (3.5-5.1) mmol/L Chloride (98-107) mmol/L Carbon Dioxide (22-30) mmol/L Anion Gap mmol/L BUN (9-20) mg/dL Creatinine (0.66-1.25) mg/dL Est GFR (CKD-EPI)AfAm (>60 ml/min/1.73 sqM) Est GFR (CKD-EPI)NonAf (>60 ml/min/1.73 sqM) Glucose (74-99) mg/dL Plasma Lactic Acid Yobani 1.5 (0.7-2.0) mmol/L Calcium (8.4-10.2) mg/dL Magnesium (1.6-2.3) mg/dL Total Bilirubin (0.2-1.3) mg/dL AST (17-59) U/L ALT (4-49) U/L Alkaline Phosphatase (38-126) U/L Troponin I (0.000-0.034) ng/mL NT-Pro-B Natriuret Pep pg/mL Total Protein (6.3-8.2) g/dL Albumin (3.5-5.0) g/dL Influenza Type A (PCR) Not Detected (Not Detectd) Influenza Type B (PCR) Not Detected (Not Detectd) RSV (PCR) Not Detected (Not Detectd) SARS-CoV-2 (PCR) Not Detected (Not Detectd) Critical Care Time Critical Care Time: Yes Total Critical Care Time: 35 <Philippe Wong - Last Filed: 06/09/24 19:45> Disposition <Piper Estrada - Last Filed: 06/09/24 18:03> Time of Disposition: 19:44 <Philippe Wong - Last Filed: 06/09/24 19:45> Clinical Impression: Acute exacerbation of chronic obstructive pulmonary disease, Atrial fibrillation with RVR Disposition: ADMITTED IP TO THIS HOSP Condition: Fair Referrals: Aly Sultana DO [Primary Care Provider] - 1-2 days
--- NOTE | 2024-06-09 18:38 | XR ---
EXAMINATION TYPE: XR chest 2V DATE OF EXAM: 06/09/2024 COMPARISON: 10/24/2021 HISTORY: Productive cough and shortness of breath TECHNIQUE: Frontal and lateral views of the chest are obtained. FINDINGS: There is no focal air space opacity, pleural effusion, or pneumothorax seen. The cardiac silhouette size is within normal limits. The osseous structures are intact. IMPRESSION: No acute cardiopulmonary process. [facility], , 06/09/2024 6:35 PM
[2024-06-09 18:40] LABS: Basophils # (A) 0.1 k/uL (0-0.2); Basophils % (A) 1 %; Eosinophils # (A) 0.9 k/uL (0-0.7); Eosinophils % (A) 9 %; HCT 49.6 % (39.0-53.0); Lymphocytes # (A) 1.9 k/uL (1.0-4.8); Lymphocytes % (A) 18 %; MCH 32.5 pg (25.0-35.0); MCHC 32.2 g/dL (31.0-37.0); MCV 101.1 fL (80.0-100.0); Mean Platelet Volume 7.1; Monocytes # (A) 0.5 k/uL (0-1.0); Monocytes % (A) 5 %; Neutrophils # (A) 7.1 k/uL (1.3-7.7); Neutrophils % (A) 67 %; Platelet Count 387 k/uL (150-450); RDW 12.7 % (11.5-15.5); WBC 10.7 k/uL (3.8-10.6)
[2024-06-09] MEDS: DILTIAZEM 125 MG in SODIUM CHLORIDE 0.9% 100 ML IV SCH (18:45)
[2024-06-09] MEDS: DILTIAZEM DRIP BOLUS FROM BAG 1 MG SOLN IV ONE (18:45)
[2024-06-09] MEDS: HEPARIN SODIUM 1,000 UN/ML (10ML VL) IV ONE (18:46)
[2024-06-09] MEDS: HEPARIN SOD,PORK IN 0.45% NACL 25,000 UNIT in 0.45% NACL 1 250ML.BAG IV SCH (18:47)
[2024-06-09 18:49] LABS: ALT 23 U/L (4-49); AST 36 U/L (17-59); African American GFR (CKD) >90 (>60 ml/min/1.73 sqM); Albumin 4.6 g/dL (3.5-5.0); Alkaline Phosphatase 79 U/L (38-126); Anion Gap 9 mmol/L; Blood Urea Nitrogen 10 mg/dL (9-20); Calcium 9.7 mg/dL (8.4-10.2); Carbon Dioxide 24 mmol/L (22-30); Chloride 105 mmol/L (98-107); Glucose 140 mg/dL (74-99); Magnesium 2.1 mg/dL (1.6-2.3); Non-African American GFR(CKD) >90 (>60 ml/min/1.73 sqM); Potassium 4.1 mmol/L (3.5-5.1); Sodium 138 mmol/L (137-145); Total Bilirubin 1.6 mg/dL (0.2-1.3); Total Protein 7.5 g/dL (6.3-8.2)
[2024-06-09 18:51] LABS: Partial Thromboplastin Time 27.2 sec (22.0-30.0)
[2024-06-09] MEDS: IPRATROPIUM-ALBUTEROL 3 ML NEB INHALATION STA (18:55)
[2024-06-09 18:57] LABS: NT-Pro-B-Type Natriuretic Pept 631 pg/mL
[2024-06-09] MEDS ORDERED: NALOXONE 0.4 MG/ML 1 ML VIAL IVP PRN (19:45)
[2024-06-09] MEDS ORDERED: IPRATROPIUM-ALBUTEROL 3 ML NEB INHALATION PRN (19:45)
[2024-06-09] MEDS: methylPREDNISolone SOD SUCCI 125 MG/2 ML VIAL IV STA (21:02)
[2024-06-09] MEDS: IPRATROPIUM-ALBUTEROL 3 ML NEB INHALATION SCH (21:06)
[2024-06-09] MEDS: CALCIUM CARBONATE 500 MG CHEWABLE PO PRN (23:36)
[2024-06-10] MEDS: HEPARIN SODIUM 1,000 UN/ML (10ML VL) IV PRN (02:07)
[2024-06-10] MEDS: ACETAMINOPHEN TAB 325 MG TAB PO PRN (05:06)
[2024-06-10 06:22] LABS: Basophils % (A) 0 %; Eosinophils % (A) 0 %; HGB 15.1 gm/dL (13.0-17.5); Lymphocytes # (A) 0.7 k/uL (1.0-4.8); Lymphocytes % (A) 7 %; MCH 32.5 pg (25.0-35.0); MCHC 32.1 g/dL (31.0-37.0); MCV 101.5 fL (80.0-100.0); Mean Platelet Volume 7.2; Monocytes # (A) 0.1 k/uL (0-1.0); Monocytes % (A) 1 %; Neutrophils # (A) 8.1 k/uL (1.3-7.7); Neutrophils % (A) 91 %; Platelet Count 362 k/uL (150-450); RBC 4.63 m/uL (4.30-5.90); RDW 12.6 % (11.5-15.5); WBC 8.9 k/uL (3.8-10.6)
[2024-06-10 07:02] LABS: Partial Thromboplastin Time 55.5 sec (22.0-30.0); Prothrombin Time 11.2 sec (10.0-12.5)
--- NOTE | 2024-06-10 08:21 | P.CRDCN ---
History of Present Illness Consult date: 06/10/24 Consult reason: atrial fibrillation History of present illness: This is a 78-year-old male patient previously seen by Dr. Betancourt patient states he does not follow with a staff assistant. He has a past medical history of COPD, hypertension, dyslipidemia, atrial fibrillation. Patient presented to the hospital due to shortness of breath, cough, wheezing. He does have lower extremity edema. No fever or chills. He did have a fall 2 days ago without syncope. He is not on home oxygen. No chest pain. No palpitations or fluttering feeling. Patient quit smoking in 1987. Patient's states that his blood pressure at home was 183/118. also states that patient was hospitalized 2 years ago and was told that he had atrial fibrillation started on anticoagulation but the patient stopped this stating that he did not have a heart condition. Patient has been started on heparin drip, Cardizem drip was on yesterday which was discontinued after patient converted to sinus rhythm. Patient remains in a sinus rhythm at this time. Blood pressure 158/75, heart rate 84, pulse ox 93% on oxygen. EKG: #1 atrial fibrillation at 153 bpm, #2 sinus rhythm Chest x-ray: No acute process Laboratory studies: troponin negative x 1, proBNP 631. WBC 8.9, hemoglobin 15.1. Sodium 138, potassium 4.1, BUN 10, creatinine 0.6, blood sugar 140. Home cardiac medications: Metoprolol tartrate 100 mg twice daily Echocardiogram performed 10/14/2021 revealed normal EF, mild MR, mild TR. Review Of Systems: At the time of my exam: CONSTITUTIONAL: Denies fever or chills. HEENT: Denies blurred vision, vision changes, or eye pain. Denies hemoptysis CARDIOVASCULAR: Denies chest pain. Denies orthopnea. Denies PND. Denies palpitations RESPIRATORY: Reports cough, shortness of breath. GASTROINTESTINAL: Denies abdominal pain. Denies nausea or vomiting. HEMATOLOGIC: Denies bleeding disorders. GENITOURINARY: Denies any blood in urine. SKIN: Denies puritis. Denies rash. Physical examination: Gen: This is a 78-year-old male resting flat in bed in no acute distress VS: reviewed HEENT: Head is atraumatic, normocephalic. Pupils equal, round. Sclerae is ani cteric. NECK: Supple. No JVD. LUNGS: Diminished breath sounds bilaterally. No intercostal retractions. HEART: Regular rate and rhythm. Systolic ejection murmur. ABDOMEN: Soft No tenderness. EXTREMITIES: No pedal edema. No calf tenderness. NEUROLOGICAL: Patient is awake, alert and oriented x3. Assessment: Paroxysmal atrial fibrillation chest converted to sinus rhythm COPD exacerbation Remote history of tobacco use and dependence, quit in 1987 Hypertension Hyperlipidemia History of paroxysmal atrial fibrillation not compliant with anticoagulation Plan: Resume patient's home cardiac medications with the following changes: Decrease Lopressor to 50 mg twice daily Stop heparin drip Start patient on Eliquis 5 mg twice daily Obtain 2-D echocardiogram and Doppler study to assess cardiac structure and function Further recommendations to follow based upon clinical course Thank you kindly for this consultation. Nurse practitioner note has been reviewed, I agree with documented findings and plan of care. Patient was seen and examined. Past Medical History Past Medical History: Atrial Fibrillation, Cancer, COPD, Hypertension, Osteoarthritis (OA), Pneumonia, Sleep Apnea/CPAP/BIPAP Additional Past Medical History / Comment(s): Recent dizziness and SOB. Hx tracheobronchitis. No device used for Sleep Apnea. Degenerative disc disease, arthritis in multiple joints, RLS. Hx skin cancer. Hx A-Fib in 2021, no trouble since. Circulation issues in feet. History of Any Multi-Drug Resistant Organisms: None Reported Past Surgical History: Hernia Repair, Orthopedic Surgery Additional Past Surgical History / Comment(s): Cervical disc removed, [facility], bronchoscopy/BAL, UVPPP, right inguinal hernia repair, skin cancer removal, colonoscopy. Past Anesthesia/Blood Transfusion Reactions: Previous Problems w/ Anesthesia Additional Past Anesthesia/Blood Transfusion Reaction / Comment(s): "Blood pressure dropped." Past Psychological History: Depression Smoking Status: Former smoker Past Alcohol Use History: None Reported Additional Past Alcohol Use History / Comment(s): Quit smoking in 1979. Past Drug Use History: None Reported - Past Family History Mother Family Medical History: Cancer Additional Family Medical History / Comment(s): Lung cancer. Father Additional Family Medical History / Comment(s): Heart disease. Medications and Allergies Home Medications Medication Instructions Recorded Confirmed Type Morphine Sulfate ER [Ms Contin] 15 mg PO BID 03/31/19 06/09/24 History Budesonide/Glycopyr/Formoterol 2 puff INHALATION RT-BID 03/10/24 06/09/24 History [Breztri Aerosphere Inhaler] Ipratropium-Albuterol Nebulize 3 ml INHALATION RT-DAILY 03/10/24 06/09/24 History [Duoneb 0.5 mg-3 mg/3 ml Soln] HYDROcodone/APAP 7.5-325MG [[place] 1 tab PO Q6HR 06/09/24 06/09/24 History 7.5-325] Metoprolol Tartrate [Lopressor] 100 mg PO BID 06/09/24 06/09/24 History Allergies Allergy/AdvReac Type Severity Reaction Status Date / Time No Known Allergies Allergy Verified 06/09/24 20:22 Physical Exam Vitals: Vital Signs Temp Pulse Pulse Resp BP Pulse Ox 06/10/24 07:56 80 76 06/10/24 07:46 98.0 F 74 18 158/75 92 L 06/10/24 06:50 97.9 F 89 18 177/89 98 06/10/24 04:03 58 L 18 130/78 91 L 06/10/24 01:51 98.4 F 77 20 140/71 92 L 06/09/24 23:03 98.3 F 69 24 159/75 92 L 06/09/24 22:09 111 H 20 153/102 97 06/09/24 21:18 97 06/09/24 21:06 96 06/09/24 19:04 149 H 06/09/24 18:55 105 H 06/09/24 18:01 98 F 150 H 18 147/78 Intake and Output 06/09/24 06/10/24 06/10/24 22:59 06:59 14:59 Intake Total 73.5 Output Total 200 Balance -126.5 Intake: Intake, IV Titration 73.5 Amount Heparin Sod,Pork in 0.45% 73.5 NaCl 25,000 unit In 0.45 % NaCl 1 250ml.bag @ 8. 8183 UNITS/KG/HR 10 mls/ hr IV .Q24H [facility] Rx#: [id number] Output: Urine 200 Other: # Voids 1 Weight 113.398 kg Results 06/10/24 06:12 06/09/24 18:23 Cardiac Enzymes 06/09/24 06/09/24 Range/Units 18:23 18:23 AST 36 (17-59) U/L Troponin I <0.012 (0.000-0.034) ng/mL Coagulation 06/09/24 06/10/24 06/10/24 Range/Units 18: 00:39 06:12 PT 11.0 11.2 (10.0-12.5) sec APTT 27.2 38.2 H 55.5 H (22.0-30.0) sec CBC 06/09/24 06/10/24 Range/Units 18: 06:12 WBC 10.7 H 8.9 (3.8-10.6) k/uL RBC 4.90 4.63 (4.30-5.90) m/uL Hgb 16.0 15.1 (13.0-17.5) gm/dL Hct 49.6 47.0 (39.0-53.0) % Plt Count 387 362 (150-450) k/uL Comprehensive Metabolic Panel 06/09/24 Range/Units 18: Sodium 138 (137-145) mmol/L Potassium 4.1 (3.5-5.1) mmol/L Chloride 105 (98-107) mmol/L Carbon Dioxide 24 (22-30) mmol/L BUN 10 (9-20) mg/dL Creatinine 0.60 L (0.66-1.25) mg/dL Glucose 140 H (74-99) mg/dL Calcium 9.7 (8.4-10.2) mg/dL AST 36 (17-59) U/L ALT 23 (4-49) U/L Alkaline Phosphatase 79 (38-126) U/L Total Protein 7.5 (6.3-8.2) g/dL Albumin 4.6 (3.5-5.0) g/dL Current Medications Generic Name Dose Route Start Last Admin Trade Name Freq PRN Reason Stop Dose Admin Acetaminophen 650 mg 06/09/24 19:45 06/10/24 05:06 Acetaminophen Tab 325 Mg Tab PO 650 mg Q4HR PRN Administration Mild Pain or Fever > 100.5 Albuterol/Ipratropium 3 ml 06/09/24 19:45 Ipratropium-Albuterol 3 Ml Neb INHALATION RT-Q2H PRN Shortness Of Breath Or Wheezing Albuterol/Ipratropium 3 ml 06/09/24 20:00 06/10/24 07:56 Ipratropium-Albuterol 3 Ml Neb INHALATION 3 ml RT-QID BALTAZAR Administration Apixaban 5 mg 06/10/24 09:00 Apixaban 5 Mg Tab PO BID [facility] Protocol Calcium Carbonate/Glycine 1,000 mg 06/09/24 23:06 06/09/24 23:36 Calcium Carbonate 500 Mg Chewable PO 1,000 mg TID PRN Administration Heartburn Naloxone HCl 0.2 mg 06/09/24 19:45 Naloxone 0.4 Mg/Ml 1 Ml Vial IVP Q2M PRN Opioid Reversal Non-Formulary Medication 50 mg 06/10/24 09:00 Metoprolol Tartrate [Lopressor] PO BID [facility] Intake and Output 06/09/24 06/10/24 06/10/24 22:59 06:59 14:59 Intake Total 73.5 Output Total 200 Balance -126.5 Intake: Intake, IV Titration 73.5 Amount Heparin Sod,Pork in 0.45% 73.5 NaCl 25,000 unit In 0.45 % NaCl 1 250ml.bag @ 8. 8183 UNITS/KG/HR 10 mls/ hr IV .Q24H [facility] Rx#: [id number] Output: Urine 200 Other: # Voids 1 Weight 113.398 kg 06/10/24 06:12 06/09/24 18:23
[2024-06-10] MEDS: APIXABAN 5 MG TAB PO SCH (09:20)
[2024-06-10] MEDS: METOPROLOL TARTRATE 50 MG TAB PO SCH (09:21)
[2024-06-10] MEDS: MORPHINE SULFATE ER 15 MG TABLET PO SCH (11:17)
[2024-06-10] MEDS: HYDROcodone/APAP 7.5-325MG 1 EACH TAB PO SCH (11:18)
--- NOTE | 2024-06-10 14:15 | P.HPIM ---
History of Present Illness H&P Date: 06/10/24 History of present illness; 68-year-old man presented emergency department for the chief complaint of hypertension and shortness of breath. His states that yesterday he was getting up to go to the dentist, and stated to his that he "was not feeling well", he denies having chest pain or shortness of breath at that time, and his took his blood pressure which was in the 180s/110s. Upon consultation with her primary care physician they were instructed that he should come to the emergency department. He has a known past medical history of atrial fibrillation - not on blood thinners currently, COPD, hypertension, sleep apnea, skin cancer and osteoarthritis. Patient states that he was monitoring his blood pressure multiple times of the day and noticed it was elevated in the 180s/110s. At the time of arrival patient denies any chest pain, heart palpitations, dizziness or lightheadedness. However he states that he feels weak, rundown and short of breath. On arrival, patient was found to be in A-fib with RVR and was started on Cardizem and heparin. Additionally, patient was found to be having a moderate COPD exacerbation. On arrival vital signs showed blood pressure 147/78, heart rate 150, respiratory rate 18, breathing comfortably on room air; current vitals show blood pressure 177/89, heart rate 89, respiratory rate 18, saturating 98% on room air. Pulmonology has been consulted regarding the patient's COPD exacerbation, and cardiology has been consulted regarding the patient's A-fib with RVR. Initial lab work done in the ER showed WBCs 10.7, Hgb 16.0, Hct 49.6, MCV 101.1, PLT 387; PT 11, INR 1.0, PTT 27.2; sodium 138, potassium 4.1, HCO3 24, BUN 10, creatinine 0.60, total bilirubin 1.6, troponin <0.012, proBNP 631 Influenza A not detected Influenza B not detected RSV not detected COVID-19 not detected EKG done in the ER showed heart rate of 153, no ST segment elevation or depression seen, no T-wave inversions seen. Showed atrial fibrillation with RVR; repeat EKG completed showed sinus rhythm with occasional supraventricular premature complexes Chest x-ray done in the ER showed no acute cardiopulmonary process Patient admitted to internal medicine service REVIEW OF SYSTEMS: CONSTITUTIONAL: No fever, no malaise, no fatigue. HEENT: No recent visual problems or hearing problems. Denied any sore throat. CARDIOVASCULAR: No chest pain, orthopnea, PND, no palpitations, no syncope. PULMONARY: No shortness of breath, no cough, no hemoptysis. GASTROINTESTINAL: No diarrhea, no nausea, no vomiting, no abdominal pain. NEUROLOGICAL: No headaches, no weakness, no numbness. HEMATOLOGICAL: Denies any bleeding or petechiae. GENITOURINARY: Denies any burning micturition, frequency, or urgency. MUSCULOSKELETAL/RHEUMATOLOGICAL: Denies any joint pain, swelling, or any muscle pain. ENDOCRINE: Denies any polyuria or polydipsia. The rest of the 14-point review of systems is negative. PHYSICAL EXAMINATION: GENERAL: The patient is alert and oriented x3, not in any acute distress. Well developed, well nourished. HEENT: Pupils are round and equally reacting to light. EOMI. No scleral icterus. No conjunctival pallor. Normocephalic, atraumatic. No pharyngeal erythema. No thyromegaly. CARDIOVASCULAR: S1 and S2 present. No murmurs, rubs, or gallops. PULMONARY: Some wheezing noted ABDOMEN: Soft, nontender, nondistended, normoactive bowel sounds. No palpable organomegaly. MUSCULOSKELETAL: No joint swelling or deformity. EXTREMITIES: No cyanosis, clubbing, or pedal edema. NEUROLOGICAL: Gross neurological examination did not reveal any focal deficits. SKIN: No rashes. Assessment and plan # Acute on chronic A-fib with RVR Patient found to be in A-fib with RVR upon arrival to the emergency department placed on Cardizem drip and heparin Cardiology consulted, patient restored to sinus rhythm and heparin discontinued and Cardizem drip discontinued Patient states he had once previously been told he had atrial fibrillation while in the hospital however never followed up with cardiology # Moderate COPD exacerbation with known history of multiple case of pneumonia Patient has remained on room air however has had saturations dropped to 91%, but been fluctuating between the middle and high 90s At home patient utilizes 2 inhalers; seen by pulmonology today Pulmonology recommendation continue DuoNebs, as well as ordering a sputum culture # Opiate dependence secondary to degenerative disc disease Patient utilizes [place] 7.5-325 and MS Contin at home for pain management due to degenerative disc disease Patient's pain unable to be controlled with Tylenol, resume home medications # Hypertension Patient takes 100 mg Lopressor twice daily Per cardiology recommendation patient decreased to 50 mg twice daily of Lopressor Blood pressure currently sitting in the 140s/80s with a heart rate ranging between 6776 Continue to monitor vital signs, continue telemetry monitoring Labs and medication were reviewed. Continue with symptomatic treatment. Resume home medication. Dictation was produced using [employer]. dictation software. please excuse any grammatical, word or spelling errors. Attestation: I have personally seen and examined the patient with Resident, reviewed the documentation and participated and agree with the assessment and plan as written. Claudio Stephens MD Past Medical History Past Medical History: Atrial Fibrillation, Cancer, COPD, Hypertension, Osteoarthritis (OA), Pneumonia, Sleep Apnea/CPAP/BIPAP Additional Past Medical History / Comment(s): Recent dizziness and SOB. Hx tracheobronchitis. No device used for Sleep Apnea. Degenerative disc disease, arthritis in multiple joints, RLS. Hx skin cancer. Hx A-Fib in 2021, no trouble since. Circulation issues in feet. History of Any Multi-Drug Resistant Organisms: None Reported Past Surgical History: Hernia Repair, Orthopedic Surgery Additional Past Surgical History / Comment(s): Cervical disc removed, cyst removed from tailbone, bronchoscopy/BAL, UVPPP, right inguinal hernia repair, skin cancer removal, colonoscopy. Past Anesthesia/Blood Transfusion Reactions: Previous Problems w/ Anesthesia Additional Past Anesthesia/Blood Transfusion Reaction / Comment(s): "Blood pressure dropped." Past Psychological History: Depression Smoking Status: Former smoker Past Alcohol Use History: None Reported Additional Past Alcohol Use History / Comment(s): Quit smoking in 1979. Past Drug Use History: None Reported - Past Family History Mother Family Medical History: Cancer Additional Family Medical History / Comment(s): Lung cancer. Father Additional Family Medical History / Comment(s): Heart disease. Medications and Allergies Home Medications Medication Instructions Recorded Confirmed Type Morphine Sulfate ER [Ms Contin] 15 mg PO BID 03/31/19 06/09/24 History Budesonide/Glycopyr/Formoterol 2 puff INHALATION RT-BID 03/10/24 06/09/24 History [Breztri Aerosphere Inhaler] Ipratropium-Albuterol Nebulize 3 ml INHALATION RT-DAILY 03/10/24 06/09/24 History [Duoneb 0.5 mg-3 mg/3 ml Soln] HYDROcodone/APAP 7.5-325MG [[place] 1 tab PO Q6HR 06/09/24 06/09/24 History 7.5-325] Apixaban [Eliquis] 5 mg PO BID #60 tab 06/12/24 Rx Diltiazem Oral [Cardizem*] 30 mg PO QID #120 tab 06/12/24 Rx Metoprolol Tartrate [Lopressor] 50 mg PO BID #60 tab 06/12/24 Rx Allergies Allergy/AdvReac Type Severity Reaction Status Date / Time No Known Allergies Allergy Verified 06/09/24 20:22 Physical Exam Vitals: Vital Signs Temp Pulse Resp BP Pulse Ox 06/10/24 06:50 97.9 F 89 18 177/89 98 06/10/24 04:03 58 L 18 130/78 91 L 06/10/24 01:51 98.4 F 77 20 140/71 92 L 06/09/24 23:03 98.3 F 69 24 159/75 92 L 06/09/24 22:09 111 H 20 153/102 97 06/09/24 21:18 97 06/09/24 21:06 96 06/09/24 19:04 149 H 06/09/24 18:55 105 H 06/09/24 18:01 98 F 150 H 18 147/78 Intake and Output 06/09/24 06/10/24 06/10/24 22:59 06:59 14:59 Intake Total 73.5 Output Total 200 Balance -126.5 Intake: Intake, IV Titration 73.5 Amount Heparin Sod,Pork in 0.45% 73.5 NaCl 25,000 unit In 0.45 % NaCl 1 250ml.bag @ 8. 8183 UNITS/KG/HR 10 mls/ hr IV .Q24H [facility] Rx#: [id number] Output: Urine 200 Other: # Voids 1 Weight 113.398 kg Results CBC & Chem 7: 06/10/24 06:12 06/09/24 18:23 Labs: Abnormal Lab Results - Last 24 Hours (Table) 06/09/24 06/09/24 06/10/24 Range/Units 18:23 18:23 00:39 WBC 10.7 H (3.8-10.6) k/uL MCV 101.1 H (80.0-100.0) fL Neutrophils # (1.3-7.7) k/uL Lymphocytes # (1.0-4.8) k/uL Eosinophils # 0.9 H (0-0.7) k/uL APTT 38.2 H (22.0-30.0) sec Creatinine 0.60 L (0.66-1.25) mg/dL Glucose 140 H (74-99) mg/dL Total Bilirubin 1.6 H (0.2-1.3) mg/dL 06/10/24 06/10/24 Range/Units 06:12 06:12 WBC (3.8-10.6) k/uL MCV 101.5 H (80.0-100.0) fL Neutrophils # 8.1 H (1.3-7.7) k/uL Lymphocytes # 0.7 L (1.0-4.8) k/uL Eosinophils # (0-0.7) k/uL APTT 55.5 H (22.0-30.0) sec Creatinine (0.66-1.25) mg/dL Glucose (74-99) mg/dL Total Bilirubin (0.2-1.3) mg/dL
--- NOTE | 2024-06-10 15:16 | P.CNPUL ---
History of Present Illness Consult date: 06/10/24 Reason for consult: dyspnea History of present illness: 78-year-old male patient, presented to the emergency department with complaints of shortness of breath and poorly controlled blood pressure. His noted his blood pressure at home was 180/110 and she was quite concerned) and she reported to the hospital. He is known to have COPD" and the patient has been maintained on Breztri on an outpatient basis. He has not episodes of sleep exacerbation with respiratory tract infections. Most recent bronchoscopy results patient was on 03/12/2024 and at that time the patient was found to have Serratia and Pseudomonas in the bronchioloalveolar lavage. This was measures through our office and the patient was treated with antibiotics and he was given a course of Levaquin, 500 mg for a total of 14 days.. For now, the patient continues to have cough and congestion and is producing some yellowish sputum. He is also known to have paroxysmal atrial fibrillation. According to him, he was in normal sinus rhythm and currently in the emergency, he is noted to be in atrial fibrillation.. He has hypertension and hyperlipidemia and history of obstructive sleep apnea. In the emergency department, the patient was noted to have A-fib with RVR. He was started on IV heparin. He was started on a Cardizem drip and subsequent this was discontinued as the patient converted to normal sinus rhythm. His blood pressure is under better control for now. I reviewed his chest x-ray from admission and it showed no evidence of any acute cardiopulmonary abnormalities. The patient is currently on oxygen airfit room air with a pulse ox of 94%. White cell count of 8.9 with a hemoglobin 15.1 and a platelet count of 362. His viral screen came back negative and the rest of the electrolytes are all within normal limits with a negative troponin and a proBNP level of 631. The patient is to be seen by cardiology. Noted he has not been receiving anticoagulation as an outpatient basis. Review of Systems Constitutional: Reports as per HPI Eyes: denies as per HPI, denies blurred vision, denies bulging eye, denies decreased vision, denies diplopia, denies discharge, denies dry eye, denies irritation, denies itching, denies pain, denies photophobia, denies loss of peripheral vision, denies loss of vision, denies tunnel vision/blind spots Ears: deny: decreased hearing, ear discharge, earache, tinnitus Ears, nose, mouth and throat: Reports as per HPI Breasts: absent: as per HPI, gynecomastia Cardiovascular: Reports dyspnea on exertion, Reports irregular heart beat, Reports palpitations, Reports rapid heart beat, Reports shortness of breath Respiratory: Reports cough, Reports dyspnea Gastrointestinal: Reports as per HPI Genitourinary: Reports as per HPI Musculoskeletal: Reports as per HPI Musculoskeletal: absent: ankle pain, ankle stiffness, ankle swelling, as per HPI, elbow pain, elbow stiffness, elbow swelling, foot pain, foot stiffness, gricel t swelling, hand pain, hand stiffness, hand swelling, hip pain, hip stiffness, hip swelling, knee pain, knee stiffness, knee swelling, shoulder pain, shoulder stiffness, shoulder swelling, wrist pain, wrist stiffness, wrist swelling Integumentary: Reports as per HPI Neurological: Reports as per HPI Psychiatric: Reports as per HPI Endocrine: Reports as per HPI Hematologic/Lymphatic: Reports as per HPI Allergic/Immunologic: Reports as per HPI Past Medical History Past Medical History: Atrial Fibrillation, Cancer, COPD, Hypertension, Osteoarthritis (OA), Pneumonia, Sleep Apnea/CPAP/BIPAP Additional Past Medical History / Comment(s): Recent dizziness and SOB. Hx tracheobronchitis. No device used for Sleep Apnea. Degenerative disc disease, arthritis in multiple joints, RLS. Hx skin cancer. Hx A-Fib in 2021, no trouble since. Circulation issues in feet. History of Any Multi-Drug Resistant Organisms: None Reported Past Surgical History: Hernia Repair, Orthopedic Surgery Additional Past Surgical History / Comment(s): Cervical disc removed, cyst removed from tailbone, bronchoscopy/BAL, UVPPP, right inguinal hernia repair, skin cancer removal, colonoscopy. Past Anesthesia/Blood Transfusion Reactions: Previous Problems w/ Anesthesia Additional Past Anesthesia/Blood Transfusion Reaction / Comment(s): "Blood pressure dropped." Past Psychological History: Depression Smoking Status: Former smoker Past Alcohol Use History: None Reported Additional Past Alcohol Use History / Comment(s): Quit smoking in 1979. Past Drug Use History: None Reported - Past Family History Mother Family Medical History: Cancer Additional Family Medical History / Comment(s): Lung cancer. Father Additional Family Medical History / Comment(s): Heart disease. Medications and Allergies Home Medications Medication Instructions Recorded Confirmed Type Morphine Sulfate ER [Ms Contin] 15 mg PO BID 03/31/19 06/09/24 History Budesonide/Glycopyr/Formoterol 2 puff INHALATION RT-BID 03/10/24 06/09/24 History [Breztri Aerosphere Inhaler] Ipratropium-Albuterol Nebulize 3 ml INHALATION RT-DAILY 03/10/24 06/09/24 History [Duoneb 0.5 mg-3 mg/3 ml Soln] HYDROcodone/APAP 7.5-325MG [[place] 1 tab PO Q6HR 06/09/24 06/09/24 History 7.5-325] Metoprolol Tartrate [Lopressor] 100 mg PO BID 06/09/24 06/09/24 History Allergies Allergy/AdvReac Type Severity Reaction Status Date / Time No Known Allergies Allergy Verified 06/09/24 20:22 Physical Exam Vitals: Vital Signs Temp Pulse Pulse Resp BP Pulse Ox 06/10/24 14:24 72 18 133/78 94 L 06/10/24 13:45 98.6 F 67 18 145/79 95 06/10/24 12:38 76 18 148/88 94 L 06/10/24 11:41 74 06/10/24 11:31 75 06/10/24 11:16 72 18 143/94 94 L 06/10/24 09:09 86 18 178/112 97 06/10/24 08:06 80 06/10/24 08:00 78 18 184/82 94 L 06/10/24 07:56 80 76 06/10/24 07:46 98.0 F 74 18 158/75 92 L 06/10/24 06:50 97.9 F 89 18 177/89 98 06/10/24 04:03 58 L 18 130/78 91 L 06/10/24 01:51 98.4 F 77 20 140/71 92 L 06/09/24 23:03 98.3 F 69 24 159/75 92 L 06/09/24 22:09 111 H 20 153/102 97 06/09/24 21:18 97 06/09/24 21:06 96 06/09/24 19:04 149 H 06/09/24 18:55 105 H 06/09/24 18:01 98 F 150 H 18 147/78 Intake and Output 06/10/24 06/10/24 06/10/24 06:59 14:59 22:59 Intake Total 73.5 Output Total 200 Balance -126.5 Intake: Intake, IV Titration 73.5 Amount Heparin Sod,Pork in 0.45% 73.5 NaCl 25,000 unit In 0.45 % NaCl 1 250ml.bag @ 8. 8183 UNITS/KG/HR 10 mls/ hr IV .Q24H [facility] Rx#: [id number] Output: Urine 200 Other: # Voids 1 General appearance,, comfortable the patient is currently on room air oxygen Head exam was generally normal. There was no scleral icterus or corneal arcus. Mucous membranes were moist. Neck was supple and without jugular venous distension, thyromegaly, or carotid bruits. Carotids were easily palpable bilaterally. There was no adenopathy. Lung sounds are diminished and the patient is scattered rhonchi heard throughout the lung taylor bilaterally Cardiac exam revealed the PMI to be normally situated and sized. The rhythm was regular and no extrasystoles were noted during several minutes of auscultation. The first and second heart sounds were normal and physiologic splitting of the second heart sound was noted. There were no murmurs, rubs, clicks, or gallops. Abdominal exam revealed normal bowel sounds. The abdomen was soft, non-tender, and without masses, organomegaly, or appreciable enlargement of the abdominal aorta. Examination of the extremities revealed easily palpable radial, femoral and pedal pulses. There was no cyanosis, clubbing or edema. Examination of the skin revealed no evidence of significant rashes, suspicious appearing nevi or other concerning lesions. Neurologically, the patient is awake and alert and the patient does not have any focal neurological deficit. Cranial nerves are essentially intact. Results - Laboratory Findings CBC and BMP: 06/10/24 06:12 06/09/24 18:23 PT/INR, D-dimer PT 11.2 sec (10.0-12.5) 06/10/24 06:12 INR 1.0 (<1.2) 06/10/24 06:12 Abnormal lab findings: Abnormal Labs 06/09/24 06/09/24 06/10/24 18:23 18:23 00:39 WBC 10.7 H MCV 101.1 H Neutrophils # Lymphocytes # Eosinophils # 0.9 H APTT 38.2 H Creatinine 0.60 L Glucose 140 H Total Bilirubin 1.6 H 06/10/24 06/10/24 06:12 06:12 WBC MCV 101.5 H Neutrophils # 8.1 H Lymphocytes # 0.7 L Eosinophils # APTT 55.5 H Creatinine Glucose Total Bilirubin - Diagnostic Findings Chest x-ray: image reviewed Assessment and Plan Plan: Acute on chronic shortness of breath, multifactorial, as the patient is known to have COPD with recurrent respiratory infections and during this current admis krystian the patient was in A-fib RVR and currently is back to normal sinus rhythm. Atrial fibrillation with rapid ventricular response, converted to normal sinus rhythm COPD with recurrent respiratory infections bronchoscopy endobronchial lavage that was done on 03/12/2024 and the cultures was positive for Serratia and Pseudomonas and the patient was treated with Levaquin 5 mg for a total of 14 days, the patient has been maintained on respiratory an outpatient basis Obstructive sleep apnea with an AHI of 85 History of skin cancer, resected from the forehead PAD Hypertension RLS Degenerative arthritis Plan Will collect another sputum Gram stain and culture and decide if further antibio tic treatment is needed. Chest x-ray is clear for now. Continue DuoNeb nebulized treatments [id number] The patient is back in normal sinus rhythm and the patient is current on metoprolol 50 mg twice daily. Will start the patient on anticoagulation with Eliquis and discontinued IV heparin. Will obtain an echocardiogram Will asked the patient to bring in his CPAP machine for check and discussion for him to utilize CPAP in light of his recurrent episode of atrial fibrillation. He is known to have advanced COPD. Continue Breztri on outpatient basis Will continue to follow.
--- NOTE | 2024-06-11 07:26 | CA ---
Transthoracic Echo Report Name: Rodríguez Solano Age: 78 Gender: M : 1945 Exam Date: 06/10/2024 11:17 Exam Location: [facility] Ht (in): 74 Wt (lb): 250 Ordering Physician: Tamia Anand Attending/Referring Phys: [id number], Cheng Residential Assistant Priyanka Garrett RDCS Procedure CPT: Indications: LVF Cardiac Hx: Technical Quality: Fair Contrast 1: Total Dose (mL): Contrast 2: Total Dose (mL): MEASUREMENTS (Male / Female) Normal Values 2D ECHO LV Diastolic Diameter PLAX 5.7 cm 4.2 - 5.9 / 3.9 - 5.3 cm LV Systolic Diameter PLAX 3.4 cm IVS Diastolic Thickness 1.2 cm 0.6 - 1.0 / 0.6 - 0.9 cm LVPW Diastolic Thickness 1.2 cm 0.6 - 1.0 / 0.6 - 0.9 cm LV Relative Wall Thickness 0.4 LVOT Diameter 2.5 cm LA Systolic Diameter LX 4.1 cm 3.0 - 4.0 / 2.7 - 3.8 cm LV Diastolic Volume MOD 4C 90.4 cm??? LV Systolic Volume MOD 4C 46.1 cm??? LV Ejection Fraction MOD 4C 49.0 % LV Cardiac Index MOD 4C 1349.5 cm???/min???m??? LV Diastolic Length 4C 8.5 cm LV Systolic Length 4C 7.3 cm LV Diastolic Volume MOD 2C 101.5 cm??? LV Systolic Volume MOD 2C 56.7 cm??? LV Ejection Fraction MOD 2C 44.2 % LV Cardiac Index MOD 2C 1366.0 cm???/min???m??? LV Diastolic Length 2C 9.6 cm LV Systolic Length 2C 8.4 cm LA Volume 91.2 cm??? 18 - 58 / 22 - 52 cm??? LA Volume Index 37.1 cm???/m??? 16 - 28 cm???/m??? M-MODE Aortic Root Diameter MM 3.9 cm DOPPLER AV Peak Velocity 175.7 cm/s AV Peak Gradient 12.3 mmHg AV Mean Velocity 121.8 cm/s AV Mean Gradient 6.7 mmHg AV Velocity Time Integral 42.4 cm LVOT Peak Velocity 150.1 cm/s LVOT Peak Gradient 9.0 mmHg LVOT Velocity Time Integral 34.5 cm LVOT Stroke Volume 168.3 cm??? LVOT Stroke Volume Index 70.4 ml/m??? LVOT Cardiac Index 5124.9 cm???/min???m??? AV Area Cont Eq vti 4.0 cm??? AV Area Cont Eq pk 4.2 cm??? MV Area PHT 2.1 cm??? Mitral E Point Velocity 70.7 cm/s Mitral A Point Velocity 108.6 cm/s Mitral E to A Ratio 0.7 MV Deceleration Time 364.2 ms TR Peak Velocity 229.3 cm/s TR Peak Gradient 21.0 mmHg Right Ventricular Systolic Press 26.0 mmHg FINDINGS Left Ventricle Left ventricular ejection fraction is estimated at 55-60 %. Mildly increased septal wall thickness. No obvious regional wall motion abnormalities. Left ventricular cavity size normal. Right Ventricle Moderate right ventricular dilatation. Right ventricular systolic pressure within normal limits. Right Atrium Normal right atrial size. No right atrial thrombus or mass seen. Left Atrium Moderately increased left atrial volume. Mildly increased left atrial area. No left atrial thrombus or mass present. Mitral Valve Structurally normal mitral valve. No mitral stenosis, regurgitation or prolapse. Aortic Valve Trileaflet aortic valve. Thickened aortic valve without stenosis. Tricuspid Valve Structurally normal tricuspid valve. Trace to mild tricuspid regurgitation. Pulmonic Valve Structurally normal pulmonic valve. Trace pulmonic regurgitation. Pericardium No pericardial or pleural effusion. Aorta Moderate aortic dilatation at the level of the sinuses of valsalva 39 mm CONCLUSIONS Normal LV systolic function Previewed by: Dr. Elmo Betancourt MD (Electronically Signed) Final Date: 11 June 2024 07:25
[2024-06-11] MEDS: DILTIAZEM ORAL 30 MG TAB PO SCH (09:45)
--- NOTE | 2024-06-11 09:53 | P.PN ---
Subjective Progress Note Date: 06/11/24 Consult reason: atrial fibrillation History of present illness: This is a 78-year-old male patient previously seen by Dr. 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 He has a past medical history of COPD, hypertension, dyslipidemia, atrial fibrillation. Patient presented to the hospital due to shortness of breath, cough, wheezing. He does have lower extremity edema. No fever or chills. He did have a fall 2 days ago without syncope. He is not on home oxygen. No chest pain. No palpitations or fluttering feeling. Patient quit smoking in 1987. Patient's states that his blood pressure at home was 183/118. also states that patient was hospitalized 2 years ago and was told that he had atrial fibrillation started on anticoagulation but the patient stopped this stating that he did not have a heart condition. Patient has been started on heparin drip, Cardizem drip was on yesterday which was discontinued after patient converted to sinus rhythm. Patient remains in a sinus rhythm at this time. Blood pressure 158/75, heart rate 84, pulse ox 93% on oxygen. EKG: #1 atrial fibrillation at 153 bpm, #2 sinus rhythm Chest x-ray: No acute process Laboratory studies: troponin negative x 1, proBNP 631. WBC 8.9, hemoglobin 15.1. Sodium 138, potassium 4.1, BUN 10, creatinine 0.6, blood sugar 140. Home cardiac medications: Metoprolol tartrate 100 mg twice daily Echocardiogram performed 10/14/2021 revealed normal EF, mild MR, mild TR. 06/11 Yesterday, patient converted to sinus rhythm but this morning he converted back to atrial fibrillation in 160s. At the time of our evaluation he is in the low 100s. He did receive his beta-valente this morning. Blood pressure 171/97, pulse ox 90% on room air. Patient states that his breathing is better today. Echocardiogram reveals EF of 55 to 60%. Results of echocardiogram reviewed with the patient. Repeat blood work reveals WBC 8.9, hemoglobin 15.1. Physical examination: Gen: This is a 78-year-old male resting flat in bed in no acute distress VS: reviewed HEENT: Head is atraumatic, normocephalic. Pupils equal, round. Sclerae is anicteric. NECK: Supple. No JVD. LUNGS: Diminished breath sounds bilaterally. No intercostal retractions. HEART: Irregular rate and rhythm. Systolic ejection murmur. ABDOMEN: Soft No tenderness. EXTREMITIES: No pedal edema. No calf tenderness. NEUROLOGICAL: Patient is awake, alert and oriented x3. Assessment: Paroxysmal atrial fibrillation chest currently rate controlled intermittently COPD exacerbation Remote history of tobacco use and dependence, quit in 1987 Hypertension Hyperlipidemia History of paroxysmal atrial fibrillation not compliant with anticoagulation Plan: Continue patient's home cardiac medications with the following changes: Continue Lopressor to 50 mg twice daily Continue patient on Eliquis 5 mg twice daily Start patient on Cardizem 30 mg 3 times daily Continue telemetry monitoring Further recommendations to follow based upon clinical course Nurse practitioner note has been reviewed, I agree with documented findings and plan of care. Patient was seen and examined. Objective - Vital Signs Vital signs: Vital Signs Temp 98.6 F 06/11/24 04:00 Pulse 70 06/11/24 08:51 Resp 16 06/11/24 04:00 BP 154/73 06/11/24 04:00 Pulse Ox 96 06/11/24 04:00 FiO2 Intake & Output 06/10/24 06/11/24 06/11/24 18:59 06:59 18:59 Intake Total 560 Output Total 150 Balance 410 Weight 112.9 kg Intake: IV 20 Invasive Line 1 10 Invasive Line 2 10 Other 540 Output: Urine 150 Other: Voiding Method Toilet - Labs CBC & Chem 7: 06/10/24 06:12 06/09/24 18:23
--- NOTE | 2024-06-11 15:18 | P.PN ---
Subjective Progress Note Date: 06/11/24 78-year-old male patient, presented to the emergency department with complaints of shortness of breath and poorly controlled blood pressure. His noted his blood pressure at home was 180/110 and she was quite concerned) and she reported to the hospital. He is known to have COPD" and the patient has been maintained on Breztri on an outpatient basis. He has not episodes of sleep exacerbation with respiratory tract infections. Most recent bronchoscopy results patient was on 03/12/2024 and at that time the patient was found to have Serratia and Pseudomonas in the bronchioloalveolar lavage. This was measures through our office and the patient was treated with antibiotics and he was given a course of Levaquin, 500 mg for a total of 14 days.. For now, the patient continues to have cough and congestion and is producing some yellowish sputum. He is also known to have paroxysmal atrial fibrillation. According to him, he was in normal sinus rhythm and currently in the emergency, he is noted to be in atrial fibrillation.. He has hypertension and hyperlipidemia and history of obstructive sleep apnea. In the emergency department, the patient was noted to have A-fib with RVR. He was started on IV heparin. He was started on a Cardizem drip and subsequent this was discontinued as the patient converted to normal sinus rhythm. His blood pressure is under better control for now. I reviewed his chest x-ray from admission and it showed no evidence of any acute cardiopulmonary abnormalities. The patient is currently on oxygen airfit room air with a pulse ox of 94%. White cell count of 8.9 with a hemoglobin 15.1 and a platelet count of 362. His viral screen came back negative and the rest of the electrolytes are all within normal limits with a negative troponin and a proBNP level of 631. The patient is to be seen by cardiology. Noted he has not been receiving anticoagulation as an outpatient basis. On today's evaluation of The patient has no significant shortness of breath. The sputum is showing gram-negative bacillus and the final cultures are still pending. Meanwhile, the patient is back in atrial fibrillation. His rate is controlled and the patient is currently on Cardizem 30 mg p.o. 3 times daily. The patient is also on metoprolol 50 mg p.o. twice daily. The patient was also started on anticoagulation with Eliquis 5 mg p.o. twice daily. He is afebrile for now. Limited cough and congestion. No significant respiratory distress. His oxygenation is also stable and the patient is currently on room air oxygen. Objective - Vital Signs Vital signs: Vital Signs Temp 98.6 F 06/11/24 04:00 Pulse 70 06/11/24 08:51 Resp 16 06/11/24 04:00 BP 154/73 06/11/24 04:00 Pulse Ox 96 06/11/24 04:00 FiO2 Intake & Output 06/10/24 06/11/24 06/11/24 18:59 06:59 18:59 Intake Total 560 360 Output Total 150 Balance 410 360 Weight 112.9 kg Intake: IV 20 Invasive Line 1 10 Invasive Line 2 10 Oral 360 Other 540 Output: Urine 150 Other: Voiding Method Toilet - Exam General appearance,, comfortable the patient is currently on room air oxygen Head exam was generally normal. There was no scleral icterus or corneal arcus. Mucous membranes were moist. Neck was supple and without jugular venous distension, thyromegaly, or carotid bruits. Carotids were easily palpable bilaterally. There was no adenopathy. Lung sounds are diminished and the patient is scattered rhonchi heard throughout the lung taylor bilaterally Cardiac exam revealed the PMI to be normally situated and sized. The rhythm was regular and no extrasystoles were noted during several minutes of auscultation. The first and second heart sounds were normal and physiologic splitting of the second heart sound was noted. There were no murmurs, rubs, clicks, or gallops. Abdominal exam revealed normal bowel sounds. The abdomen was soft, non-tender, and without masses, organomegaly, or appreciable enlargement of the abdominal aorta. Examination of the extremities revealed easily palpable radial, femoral and pedal pulses. There was no cyanosis, clubbing or edema. Examination of the skin revealed no evidence of significant rashes, suspicious appearing nevi or other concerning lesions. Neurologically, the patient is awake and alert and the patient does not have any focal neurological deficit. Cranial nerves are essentially intact. - Labs CBC & Chem 7: 06/10/24 06:12 06/09/24 18:23 Assessment and Plan Plan: Acute on chronic shortness of breath, multifactorial, as the patient is known to have COPD with recurrent respiratory infections and during this current admission the patient was in A-fib RVR and currently is back to normal sinus rhythm. Subsequently, this morning, the patient went into atrial fibrillation again. His rate is controlled. Atrial fibrillation, with a controlled rate. Currently on a combination of Cardizem, metoprolol and anticoagulation with Eliquis. COPD with recurrent respiratory infections bronchoscopy endobronchial lavage that was done on 03/12/2024 and the cultures was positive for Serratia and Pseudomonas and the patient was treated with Levaquin 5 mg for a total of 14 days, the patient has been maintained on respiratory an outpatient basis. Repeat sputum sample is showing gram-negative bacillus. Awaiting final cultures and sensitivities. Obstructive sleep apnea with an AHI of 85 History of skin cancer, resected from the forehead PAD Hypertension RLS Degenerative arthritis Plan Awaiting final sputum culture, as the patient sputum Gram stain is showing gram- negative bacillus. Chest x-ray is clear for now. Hold off on antibiotic treatment till we get the final cultures and sensitivities Continue DuoNeb nebulized treatments [id number] Echocardiogram shows a preserved LV function The patient is on metoprolol and Cardizem The patient is on anticoagulation with Eliquis Will asked the patient to bring in his CPAP machine for check and discussion for him to utilize CPAP in light of his recurrent episode of atrial fibrillation. He is known to have advanced COPD. Continue Sailaja on outpatient basis Will continue to follow.
--- NOTE | 2024-06-11 15:36 | P.PN ---
Progress Note - Text Progress Note Date: 06/11/24 History of present illness; 68-year-old man presented emergency department for the chief complaint of hypertension and shortness of breath. His states that yesterday he was getting up to go to the dentist, and stated to his that he "was not feeling well", he denies having chest pain or shortness of breath at that time, and his took his blood pressure which was in the 180s/110s. Upon consultation with her primary care physician they were instructed that he should come to the emergency department. He has a known past medical history of atrial fibrillation - not on blood thinners currently, COPD, hypertension, sleep apnea, skin cancer and osteoarthritis. Patient states that he was monitoring his blood pressure multiple times of the day and noticed it was elevated in the 180s/110s. At the time of arrival patient denies any chest pain, heart palpitations, dizziness or lightheadedness. However he states that he feels weak, rundown and short of breath. On arrival, patient was found to be in A-fib with RVR and was started on Cardizem and heparin. Additionally, keven ent was found to be having a moderate COPD exacerbation. On arrival vital signs showed blood pressure 147/78, heart rate 150, respiratory rate 18, breathing comfortably on room air; current vitals show blood pressure 177/89, heart rate 89, respiratory rate 18, saturating 98% on room air. Pulmonology has been consulted regarding the patient's COPD exacerbation, and cardiology has been consulted regarding the patient's A-fib with RVR. Initial lab work done in the ER showed WBCs 10.7, Hgb 16.0, Hct 49.6, MCV 101.1, PLT 387; PT 11, INR 1.0, PTT 27.2; sodium 138, potassium 4.1, HCO3 24, BUN 10, creatinine 0.60, total bilirubin 1.6, troponin <0.012, proBNP 631 Influenza A not detected Influenza B not detected RSV not detected COVID-19 not detected EKG done in the ER showed heart rate of 153, no ST segment elevation or depression seen, no T-wave inversions seen. Showed atrial fibrillation with RVR; repeat EKG completed showed sinus rhythm with occasional supraventricular premature complexes Chest x-ray done in the ER showed no acute cardiopulmonary process Patient admitted to internal medicine service June 11: Patient heart rate went up to the 160s today. Cardizem 30 mg 3 times daily added. Resting in bed. Told to ambulate in the hallway. Tolerating diet. No chest pain. Active Medications Acetaminophen (Acetaminophen Tab 325 Mg Tab) 650 mg PO Q4HR PRN PRN Reason: Mild Pain or Fever > 100.5 Last Admin: 06/10/24 05:06 Dose: 650 mg Hydrocodone Bitart/Acetaminophen (Hydrocodone/Apap 7.5-325mg 1 Each Tab) 1 each PO Q6HR [facility] Last Admin: 06/11/24 12:23 Dose: 1 each Albuterol/Ipratropium (Ipratropium-Albuterol 3 Ml Neb) 3 ml INHALATION RT-Q2H PRN PRN Reason: Shortness Of Breath Or Wheezing Albuterol/Ipratropium (Ipratropium-Albuterol 3 Ml Neb) 3 ml INHALATION RT-QID [facility] Last Admin: 06/11/24 12:48 Dose: 3 ml Apixaban (Apixaban 5 Mg Tab) 5 mg PO BID [facility]; Protocol Last Admin: 06/11/24 08:58 Dose: 5 mg Calcium Carbonate/Glycine (Calcium Carbonate 500 Mg Chewable) 1,000 mg PO TID PRN PRN Reason: Heartburn Last Admin: 06/09/24 23:36 Dose: 1,000 mg Diltiazem HCl (Diltiazem Oral 30 Mg Tab) 30 mg PO TID [facility] Last Admin: 06/11/24 09:45 Dose: 30 mg Metoprolol Tartrate (Metoprolol Tartrate 50 Mg Tab) 50 mg PO BID [facility] Last Admin: 06/11/24 08:58 Dose: 50 mg Morphine Sulfate (Morphine Sulfate Er 15 Mg Tablet) 15 mg PO BID [facility]; Protocol Last Admin: 06/11/24 08:58 Dose: 15 mg Naloxone HCl (Naloxone 0.4 Mg/Ml 1 Ml Vial) 0.2 mg IVP Q2M PRN PRN Reason: Opioid Reversal Physical examination: VITAL SIGNS: 98.4, 83, 18, 120 x 52, 6% room air GENERAL: Sitting edge of the bed awake, eating lunch Oral cavity: Normal EYES: Pupils equal. Conjunctiva normal. NECK: JVD unable to assess; masses not palpable. HEART: First second sounds normal; no edema. LUNGS: Respiratory rate increased decreased breath sounds ABDOMEN: Soft, nontender, liver spleen not palpable, no masses palpable. PSYCH: AO 3, mood and affect normal MUSCULOSKELETAL:No Clubbing/cyanosis;muscles-grossly intact INVESTIGATIONS, reviewed in the clinical context: June 10: White count 8.9 hemoglobin 15.1 platelets 362 June 09: Potassium 4.1 BUN 10 creatinine 0.60 Troponin I less than 0.012. proBNP 611 Influenza type A, type B, RSV, COVID-19: Not detected 2D echocardiogram: EF 55 to 60%.Moderate right ventricle dilatation. Assessment and plan # Acute on chronic A-fib with RVR: Paroxysmal. Rapid rate today. Patient found to be in A-fib with RVR upon arrival to the emergency department placed on Cardizem drip and heparin Cardiology consulted, patient restored to sinus rhythm and heparin discontinued and Cardizem drip discontinued Patient states he had once previously been told he had atrial fibrillation while in the hospital however never followed up with cardiology Cardizem 30 mg 3 times daily added. On Eliquis. Lopressor 50 mg twice daily. # Moderate COPD exacerbation with known history of multiple case of pneumonia Patient has remained on room air however has had saturations dropped to 91%, but been fluctuating between the middle and high 90s At home patient utilizes 2 inhalers; followed by pulmonary DuoNeb # Opiate dependence secondary to pain from degenerative disc disease Patient utilizes [place] 7.5-325 and MS Contin at home for pain management due to degenerative disc disease Patient's pain unable to be controlled with Tylenol, resume home medications # Essential hypertension Patient takes 100 mg Lopressor twice daily Per cardiology recommendation patient decreased to 50 mg twice daily of Lopressor Blood pressure currently sitting in the 140s/80s with a heart rate ranging between 6776 -Obesity BMI 32 Weight loss measures Cardizem 30 mg 3 times daily added. Increase activity in the hallway. Follow. Past Medical History Past Medical History: Atrial Fibrillation, Cancer, COPD, Hypertension, Osteoarthritis (OA), Pneumonia, Sleep Apnea/CPAP/BIPAP Additional Past Medical History / Comment(s): Recent dizziness and SOB. Hx tracheobronchitis. No device used for Sleep Apnea. Degenerative disc disease, arthritis in multiple joints, RLS. Hx skin cancer. Hx A-Fib in 2021, no trouble since. Circulation issues in feet. History of Any Multi-Drug Resistant Organisms: None Reported Past Surgical History: Hernia Repair, Orthopedic Surgery Additional Past Surgical History / Comment(s): Cervical disc removed, cyst removed from tailbone, bronchoscopy/BAL, UVPPP, right inguinal hernia repair, skin cancer removal, colonoscopy. Past Anesthesia/Blood Transfusion Reactions: Previous Problems w/ Anesthesia Additional Past Anesthesia/Blood Transfusion Reaction / Comment(s): "Blood pressure dropped." Past Psychological History: Depression Smoking Status: Former smoker Past Alcohol Use History: None Reported Additional Past Alcohol Use History / Comment(s): Quit smoking in 1979. Past Drug Use History: None Reported
--- NOTE | 2024-06-12 10:42 | P.PN ---
Subjective Progress Note Date: 06/12/24 Consult reason: atrial fibrillation History of present illness: This is a 78-year-old male patient previously seen by Dr. 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 He has a past medical history of COPD, hypertension, dyslipidemia, atrial fibrillation. Patient presented to the hospital due to shortness of breath, cough, wheezing. He does have lower extremity edema. No fever or chills. He did have a fall 2 days ago without syncope. He is not on home oxygen. No chest pain. No palpitations or fluttering feeling. Patient quit smoking in 1987. Patient's states that his blood pressure at home was 183/118. also states that patient was hospitalized 2 years ago and was told that he had atrial fibrillation started on anticoagulation but the patient stopped this stating that he did not have a heart condition. Patient has been started on heparin drip, Cardizem drip was on yesterday which was discontinued after patient converted to sinus rhythm. Patient remains in a sinus rhythm at this time. Blood pressure 158/75, heart rate 84, pulse ox 93% on oxygen. EKG: #1 atrial fibrillation at 153 bpm, #2 sinus rhythm Chest x-ray: No acute process Laboratory studies: troponin negative x 1, proBNP 631. WBC 8.9, hemoglobin 15.1. Sodium 138, potassium 4.1, BUN 10, creatinine 0.6, blood sugar 140. Home cardiac medications: Metoprolol tartrate 100 mg twice daily Echocardiogram performed 10/14/2021 revealed normal EF, mild MR, mild TR. 06/11 Yesterday, patient converted to sinus rhythm but this morning he converted back to atrial fibrillation in 160s. At the time of our evaluation he is in the low 100s. He did receive his beta-valente this morning. Blood pressure 171/97, pulse ox 90% on room air. Patient states that his breathing is better today. Echocardiogram reveals EF of 55 to 60%. Results of echocardiogram reviewed with the patient. Repeat blood work reveals WBC 8.9, hemoglobin 15.1. 06/12 Patient is seen today in follow-up. He states he is feeling well, no problems overnight. He denies having any chest pain, shortness of breath, palpitations, lightheadedness or dizziness. On telemetry, patient is atrial fibrillation 114 bpm. Blood pressure 124/63, heart rate 81, pulse ox 92% on room air. Yesterday, patient was started on Cardizem p.o. for rate control. Physical examination: Gen: This is a 78-year-old male resting flat in bed in no acute distress VS: reviewed HEENT: Head is atraumatic, normocephalic. Pupils equal, round. Sclerae is anicteric. NECK: Supple. No JVD. LUNGS: Diminished breath sounds bilaterally. No intercostal retractions. HEART: Irregular rate and rhythm. Systolic ejection murmur. ABDOMEN: Soft No tenderness. EXTREMITIES: No pedal edema. No calf tenderness. NEUROLOGICAL: Patient is awake, alert and oriented x3. Assessment: Paroxysmal atrial fibrillation chest currently rate controlled intermittently COPD exacerbation Remote history of tobacco use and dependence, quit in 1987 Hypertension Hyperlipidemia History of paroxysmal atrial fibrillation not compliant with anticoagulation Plan: Continue Lopressor 50 mg twice daily, Eliquis 5 mg twice daily, Cardizem 30 mg 3 times daily Patient is cleared for discharge from cardiology and may follow-up in the office with Dr. Betancourt in 1 to 2 weeks. Nurse practitioner note has been reviewed, I agree with documented findings and plan of care. Patient was seen and examined. Objective - Vital Signs Vital signs: Vital Signs Temp 98.4 F 06/12/24 07:57 Pulse 81 06/12/24 09:13 Resp 16 06/12/24 07:57 BP 124/63 06/12/24 09:13 Pulse Ox 92 L 06/12/24 07:57 FiO2 Intake & Output 06/11/24 06/12/24 06/12/24 18:59 06:59 18:59 Intake Total 1160 250 Output Total 0 Balance 1160 0 250 Weight 116 kg Intake: IV 20 10 Invasive Line 1 20 10 Oral 1140 240 Output: Stool 0 Other: Voiding Method Toilet Toilet # Voids 0 - Labs CBC & Chem 7: 06/10/24 06:12 06/09/24 18:23 Labs: Microbiology - Last 24 Hours (Table) 06/10/24 11:58 Gram Stain - Preliminary Sputum Sputum Culture - Preliminary Gram Neg Bacilli
[2024-06-12 12:21] VITALS: RESP 18
[2024-06-12 15:51] VITALS: BP 152/86; PULSE 70; TEMP 98
--- NOTE | 2024-06-12 19:04 | P.DS ---
Providers Date of admission: 06/09/24 19:47 Expected date of discharge: 06/12/24 Attending physician: Saurav Teixeira Consults: 06/09/24 19:45 Consult Physician Routine Consulting Provider: Victorino Underwood Consult Reason/Comments: COPD Do you want consulting provider notified?: Yes Consult Physician Routine Consulting Provider: Gil Scruggs Consult Reason/Comments: afib Do you want consulting provider notified?: Yes Primary care physician: [facility] Course: History of present illness; 68-year-old man presented emergency department for the chief complaint of hypertension and shortness of breath. His states that yesterday he was getting up to go to the dentist, and stated to his that he "was not feeling well", he denies having chest pain or shortness of breath at that time, and his took his blood pressure which was in the 180s/110s. Upon consultation with her primary care physician they were instructed that he should come to the emergency department. He has a known past medical history of atrial fibrillation - not on blood thinners currently, COPD, hypertension, sleep apnea, skin cancer and osteoarthritis. Patient states that he was monitoring his blood pressure multiple times of the day and noticed it was elevated in the 180s/110s. At the time of arrival patient denies any chest pain, heart palpitations, dizziness or lightheadedness. However he states that he feels weak, rundown and short of breath. On arrival, patient was found to be in A-fib with RVR and was started on Cardizem and heparin. Additionally, patient was found to be having a moderate COPD exacerbation. On arrival vital signs showed blood pressure 147/78, heart rate 150, respiratory rate 18, breathing comfortably on room air; current vitals show blood pressure 177/89, heart rate 89, respiratory rate 18, saturating 98% on room air. Pulmonology has been consulted regarding the patient's COPD exacerbation, and cardiology has been consulted regarding the patient's A-fib with RVR. Initial lab work done in the ER showed WBCs 10.7, Hgb 16.0, Hct 49.6, MCV 101.1, PLT 387; PT 11, INR 1.0, PTT 27.2; sodium 138, potassium 4.1, HCO3 24, BUN 10, creatinine 0.60, total bilirubin 1.6, troponin <0.012, proBNP 631 Influenza A not detected Influenza B not detected RSV not detected COVID-19 not detected EKG done in the ER showed heart rate of 153, no ST segment elevation or depression seen, no T-wave inversions seen. Showed atrial fibrillation with RVR; repeat EKG completed showed sinus rhythm with occasional supraventricular premature complexes Chest x-ray done in the ER showed no acute cardiopulmonary process Patient admitted to internal medicine service June 11: Patient heart rate went up to the 160s today. Cardizem 30 mg 3 times daily added. Resting in bed. Told to ambulate in the hallway. Tolerating diet. No chest pain. June 12: Patient had short episodes of heart rate going up to 140s. Cleared by cardiology to go. Will increase the Cardizem to 30 mg 4 times a day. Otherwise doing well. Discussed with patient and . Physical examination: VITAL SIGNS: 98, 70, 18, 152/86, 93% room air GENERAL: Comfortable Oral cavity: Normal EYES: Pupils equal. Conjunctiva normal. NECK: JVD unable to assess; masses not palpable. HEART: First second sounds normal; no edema. LUNGS: Respiratory rate increased decreased breath sounds ABDOMEN: Soft, nontender, liver spleen not palpable, no masses palpable. PSYCH: AO 3, mood and affect normal MUSCULOSKELETAL:No Clubbing/cyanosis;muscles-grossly intact INVESTIGATIONS, reviewed in the clinical context: June 10: White count 8.9 hemoglobin 15.1 platelets 362 June 09: Potassium 4.1 BUN 10 creatinine 0.60 Troponin I less than 0.012. proBNP 611 Influenza type A, type B, RSV, COVID-19: Not detected 2D echocardiogram: EF 55 to 60%.Moderate right ventricle dilatation. Assessment and plan # Acute on chronic A-fib with RVR: Intermittent. Rapid rate Patient found to be in A-fib with RVR upon arrival to the emergency department placed on Cardizem drip and heparin Cardiology consulted, patient restored to sinus rhythm and heparin discontinued and Cardizem drip discontinued Patient states he had once previously been told he had atrial fibrillation while in the hospital however never followed up with cardiology Increase Cardizem 30 mg 4 times daily added. On Eliquis. Lopressor 50 mg twice daily. # Moderate COPD exacerbation with known history of multiple case of pneumonia Patient has remained on room air however has had saturations dropped to 91%, but been fluctuating between the middle and high 90s At home patient utilizes 2 inhalers; followed by pulmonary DuoNeb # Opiate dependence secondary to pain from degenerative disc disease Patient utilizes [place] 7.5-325 and MS Contin at home for pain management due to degenerative disc disease Patient's pain unable to be controlled with Tylenol, resume home medications # Essential hypertension 50 mg Lopressor twice daily Cardizem 30 mg 4 times daily -Obesity BMI 32 Weight loss measures Disposition: Home Past Medical History Past Medical History: Atrial Fibrillation, Cancer, COPD, Hypertension, Osteoarthritis (OA), Pneumonia, Sleep Apnea/CPAP/BIPAP Additional Past Medical History / Comment(s): Recent dizziness and SOB. Hx tracheobronchitis. No device used for Sleep Apnea. Degenerative disc disease, arthritis in multiple joints, RLS. Hx skin cancer. Hx A-Fib in 2021, no trouble since. Circulation issues in feet. History of Any Multi-Drug Resistant Organisms: None Reported Past Surgical History: Hernia Repair, Orthopedic Surgery Additional Past Surgical History / Comment(s): Cervical disc removed, cyst removed from tailbone, bronchoscopy/BAL, UVPPP, right inguinal hernia repair, skin cancer removal, colonoscopy. Past Anesthesia/Blood Transfusion Reactions: Previous Problems w/ Anesthesia Additional Past Anesthesia/Blood Transfusion Reaction / Comment(s): "Blood pressure dropped." Past Psychological History: Depression Smoking Status: Former smoker Past Alcohol Use History: None Reported Additional Past Alcohol Use History / Comment(s): Quit smoking in 1979. Past Drug Use History: None Reported Plan - Discharge Summary Discharge Rx Participant: No New Discharge Prescriptions: New Diltiazem Oral [Cardizem*] 30 mg PO QID #120 tab Metoprolol Tartrate [Lopressor] 50 mg PO BID #60 tab Apixaban [Eliquis] 5 mg PO BID #60 tab Continue Morphine Sulfate ER [Ms Contin] 15 mg PO BID Ipratropium-Albuterol Nebulize [Duoneb 0.5 mg-3 mg/3 ml Soln] 3 ml INHALATION RT-DAILY HYDROcodone/APAP 7.5-325MG [[place] 7.5-325] 1 tab PO Q6HR Budesonide/Glycopyr/Formoterol [Breztri Aerosphere Inhaler] 2 puff INHALATION RT-BID Discontinued Metoprolol Tartrate [Lopressor] 100 mg PO BID Discharge Medication List Morphine Sulfate ER [Ms Contin] 15 mg PO BID 03/31/19 [History] Budesonide/Glycopyr/Formoterol [Breztri Aerosphere Inhaler] 2 puff INHALATION RT-BID 03/10/24 [History] Ipratropium-Albuterol Nebulize [Duoneb 0.5 mg-3 mg/3 ml Soln] 3 ml INHALATION RT-DAILY 03/10/24 [History] HYDROcodone/APAP 7.5-325MG [[place] 7.5-325] 1 tab PO Q6HR 06/09/24 [History] Apixaban [Eliquis] 5 mg PO BID #60 tab 06/12/24 [Rx] Diltiazem Oral [Cardizem*] 30 mg PO QID #120 tab 06/12/24 [Rx] Metoprolol Tartrate [Lopressor] 50 mg PO BID #60 tab 06/12/24 [Rx] Follow up Appointment(s)/Referral(s): Aly Sultana DO [Primary Care Provider] - 1-2 days (please call and make follow-up ) Elmo Betancourt MD [STAFF PHYSICIAN] - 1 Week (please call and make follow up) Seymour Griffin DO [Doctor of Osteopathic Medicine] - 1 Week (please call and make appointment ) Patient Instructions/Handouts: A-fib (Atrial Fibrillation) (DC), COPD (Chronic Obstructive Pulmonary Disease) (DC) Discharge Disposition: HOME SELF-CARE
--- NOTE | 2024-06-12 19:18 | P.PN ---
Subjective Progress Note Date: 06/12/24 78-year-old male patient, presented to the emergency department with complaints of shortness of breath and poorly controlled blood pressure. His noted his blood pressure at home was 180/110 and she was quite concerned) and she reported to the hospital. He is known to have COPD" and the patient has been maintained on Breztri on an outpatient basis. He has not episodes of sleep exacerbation with respiratory tract infections. Most recent bronchoscopy results patient was on 03/12/2024 and at that time the patient was found to have Serratia and Pseudomonas in the bronchioloalveolar lavage. This was measures through our office and the patient was treated with antibiotics and he was given a course of Levaquin, 500 mg for a total of 14 days.. For now, the patient continues to have cough and congestion and is producing some yellowish sputum. He is also known to have paroxysmal atrial fibrillation. According to him, he was in normal sinus rhythm and currently in the emergency, he is noted to be in atrial fibrillation.. He has hypertension and hyperlipidemia and history of obstructive sleep apnea. In the emergency department, the patient was noted to have A-fib with RVR. He was started on IV heparin. He was started on a Cardizem drip and subsequent this was discontinued as the patient converted to normal sinus rhythm. His blood pressure is under better control for now. I reviewed his chest x-ray from admission and it showed no evidence of any acute cardiopulmonary abnormalities. The patient is currently on oxygen airfit room air with a pulse ox of 94%. White cell count of 8.9 with a hemoglobin 15.1 and a platelet count of 362. His viral screen came back negative and the rest of the electrolytes are all within normal limits with a negative troponin and a proBNP level of 631. The patient is to be seen by cardiology. Noted he has not been receiving anticoagulation as an outpatient basis. On today's evaluation of The patient has no significant shortness of breath. The sputum is showing gram-negative bacillus and the final cultures are still pending. Meanwhile, the patient is back in atrial fibrillation. His rate is controlled and the patient is currently on Cardizem 30 mg p.o. 3 times daily. The patient is also on metoprolol 50 mg p.o. twice daily. The patient was also started on anticoagulation with Eliquis 5 mg p.o. twice daily. He is afebrile for now. Limited cough and congestion. No significant respiratory distress. His oxygenation is also stable and the patient is currently on room air oxygen. 06/12/2024, patient is being seen for a follow-up. Patient is doing well. No specific complaints. Resting comfortably in bed. The repeat sputum sample was showing gram-negative bacillus and the follow-up culture showed few Pseudomonas aeruginosa. This will be discussed with his annealer helper, Dr. Griffin and will decide if further antibiotic therapy is needed. Meanwhile, the patient is doing well. Atrial fibrillation is under adequate control. The patient remains on anticoagulation with Eliquis. The patient remains on metoprolol 50 mg p.o. twice a day and oral Cardizem 30 mg p.o. 4 times daily. He is on Breztri on outpatient basis and he will be utilizing the same inhaler at the time of discharge. No other issues for now. He is on room air oxygen. Objective - Vital Signs Vital signs: Vital Signs Temp 98.4 F 06/12/24 07:57 Pulse 81 06/12/24 09:13 Resp 16 06/12/24 07:57 BP 124/63 06/12/24 09:13 Pulse Ox 92 L 06/12/24 07:57 FiO2 Intake & Output 06/11/24 06/12/24 06/12/24 18:59 06:59 18:59 Intake Total 1160 250 Output Total 0 Balance 1160 0 250 Weight 116 kg Intake: IV 20 10 Invasive Line 1 20 10 Oral 1140 240 Output: Stool 0 Other: Voiding Method Toilet Toilet # Voids 0 - Exam General appearance,, comfortable the patient is currently on room air oxygen Head exam was generally normal. There was no scleral icterus or corneal arcus. Mucous membranes were moist. Neck was supple and without jugular venous distension, thyromegaly, or carotid bruits. Carotids were easily palpable bilaterally. There was no adenopathy. Lung sounds are diminished and the patient is scattered rhonchi heard throughout the lung taylor bilaterally Cardiac exam revealed the PMI to be normally situated and sized. The rhythm was regular and no extrasystoles were noted during several minutes of auscultation. The first and second heart sounds were normal and physiologic splitting of the second heart sound was noted. There were no murmurs, rubs, clicks, or gallops. Abdominal exam revealed normal bowel sounds. The abdomen was soft, non-tender, and without masses, organomegaly, or appreciable enlargement of the abdominal aorta. Examination of the extremities revealed easily palpable radial, femoral and pedal pulses. There was no cyanosis, clubbing or edema. Examination of the skin revealed no evidence of significant rashes, suspicious appearing nevi or other concerning lesions. Neurologically, the patient is awake and alert and the patient does not have any focal neurological deficit. Cranial nerves are essentially intact. - Labs CBC & Chem 7: 06/10/24 06:12 06/09/24 18:23 Labs: Microbiology - Last 24 Hours (Table) 06/10/24 11:58 Gram Stain - Preliminary Sputum Sputum Culture - Preliminary Gram Neg Bacilli Assessment and Plan Plan: Acute on chronic shortness of breath, multifactorial, as the patient is known to have COPD with recurrent respiratory infections and during this current admission the patient was in A-fib RVR and currently is back to normal sinus rhythm. Subsequently, this morning, the patient went into atrial fibrillation again. His rate is controlled. The patient is doing well and the patient is currently on a combination of metoprolol and Cardizem and anticoagulation with Eliquis. Atrial fibrillation, with a controlled rate. Currently on a combination of Cardizem, metoprolol and anticoagulation with Eliquis. COPD with recurrent respiratory infections bronchoscopy endobronchial lavage that was done on 03/12/2024 and the cultures was positive for Serratia and Pseu domonas and the patient was treated with Levaquin 5 mg for a total of 14 days, the patient has been maintained on respiratory an outpatient basis. Repeat sputum sample is showing gram-negative bacillus. The final culture came back positive for Pseudomonas aeruginosa Obstructive sleep apnea with an AHI of 85 History of skin cancer, resected from the forehead PAD Hypertension RLS Degenerative arthritis Plan Will discuss with his annealer helper, Dr. Griffin the need for ongoing treatment of pseudomonal colonization and possibly infection. I favor conization of infection. Continue DuoNeb nebulized treatments [id number] Echocardiogram shows a preserved LV function The patient is on metoprolol and Cardizem The patient is on anticoagulation with Eliquis Will asked the patient to bring in his CPAP machine for check and discussion for him to utilize CPAP in light of his recurrent episode of atrial fibrillation. He is known to have advanced COPD. The patient will bring his CPAP machine to the office for us to check Continue Breztri on outpatient basis Will continue to follow an outpatient basis the patient is cleared for discharge from pulm standpoint.
== END 2024-06-12 18:11 | disposition home or self-care (01) | DRG 309 ==
LOC: EC 17:35 → 3SCARD 19:47
PROVIDERS: ADMIT Hospitalist; ATTEND Hospitalist
DX: I48.0 Paroxysmal atrial fibrillation (principal); J44.1 Chronic obstructive pulmonary disease with (acute) exacerbation; I11.9 Hypertensive heart disease without heart failure; E66.9 Obesity, unspecified; I49.1 Atrial premature depolarization; G47.33 Obstructive sleep apnea (adult) (pediatric); B96.5 Pseudomonas (aeruginosa) (mallei) (pseudomallei) as the cause of diseases classified elsewhere; M47.9 Spondylosis, unspecified; E78.5 Hyperlipidemia, unspecified; T45.516A Underdosing of anticoagulants, initial encounter; W19.XXXA Unspecified fall, initial encounter; Z68.32 Body mass index [BMI] 32.0-32.9, adult; Z79.891 Long term (current) use of opiate analgesic; Z79.01 Long term (current) use of anticoagulants; Z87.891 Personal history of nicotine dependence; Z85.828 Personal history of other malignant neoplasm of skin; Z79.899 Other long term (current) drug therapy; Z79.51 Long term (current) use of inhaled steroids; Z11.52 Encounter for screening for COVID-19; Z87.01 Personal history of pneumonia (recurrent)
CPT/HCPCS: 36415; 71046; 80053; 83605; 83735; 83880; 84484; 85025; 85610; 85730; 87070; 87077; 87186; 87205; 87636; 93005; 93306; 94640; 96365; 96366; 96368; 96375; 99291

== ENCOUNTER 2024-08-15 21:19 | Inpatient (IN) | payer MEDICARE ==
--- NOTE | 2024-08-15 21:47 | ED ---
SOB HPI - General Chief Complaint: Shortness of Breath Stated Complaint: AFIB Time Seen by Provider: 08/15/24 21:36 Source: patient Mode of arrival: ambulatory Limitations: no limitations - History of Present Illness Initial Comments: Patient is a 78-year-old man presenting with complaint that he believes his atrial fibrillation is acting up. The patient states that he has just not felt well since earlier in the day. He states that he has not had much energy. He has been feeling sweaty. He has noticed shortness of breath and palpitations. Patient denies chest pain. No nausea or vomiting. Patient and state that they checked his blood pressure at home and it was somewhat elevated and also the heart rate was up and down being from 100to 120s. MD Complaint: shortness of breath Onset/Timin -: days(s) Severity: moderate Severity scale (1-10): 0 Consistency: constant Improves With: nothing Worsens With: exertion Known History Of: other (Atrial fibrillation) Treatments Prior to Arrival: none - Related Data Home Oxygen Therapy: No Home Medications Medication Instructions Recorded Confirmed Morphine Sulfate ER [Ms Contin] 15 mg PO BID 03/31/19 08/16/24 Budesonide/Glycopyr/Formoterol 2 puff INHALATION RT-BID 03/10/24 08/16/24 [Breztri Aerosphere Inhaler] Ipratropium-Albuterol Nebulize 3 ml INHALATION RT-DAILY 03/10/24 08/16/24 [Duoneb 0.5 mg-3 mg/3 ml Soln] HYDROcodone/APAP 7.5-325MG [[place] 1 tab PO Q6HR 06/09/24 08/16/24 7.5-325] QUEtiapine [SEROquel] 25 mg PO BID 08/16/24 08/16/24 Previous Rx's Medication Instructions Recorded Apixaban [Eliquis] 5 mg PO BID #60 tab 06/12/24 Diltiazem Oral [Cardizem*] 60 mg PO TID #90 tab 08/19/24 Metoprolol Tartrate [Lopressor] 50 mg PO TID #90 tab 08/19/24 cefuroxime axetiL [Ceftin] 500 mg PO BID #10 tab 08/19/24 Allergies Allergy/AdvReac Type Severity Reaction Status Date / Time No Known Allergies Allergy Verified 08/16/24 09:51 Review of Systems ROS Statement: Those systems with pertinent positive or pertinent negative responses have been documented in the HPI. ROS Other: All systems not noted in ROS Statement are negative. Constitutional: Denies: fever, chills, weakness Respiratory: Reports: dyspnea. Denies: cough, wheezes, hemoptysis Cardiovascular: Reports: palpitations, dyspnea on exertion. Denies: chest pain, edema, syncope Gastrointestinal: Denies: abdominal pain, nausea, vomiting, diarrhea Genitourinary: Denies: dysuria, hematuria Musculoskeletal: Denies: back pain Skin: Denies: rash Neurological: Denies: headache, weakness, numbness Past Medical History Past Medical History: Atrial Fibrillation, Cancer, COPD, Hypertension, Osteoarthritis (OA), Pneumonia, Sleep Apnea/CPAP/BIPAP Additional Past Medical History / Comment(s): Recent dizziness and SOB. Hx tracheobronchitis. No device used for Sleep Apnea. Degenerative disc disease, arthritis in multiple joints, RLS. Hx skin cancer. Hx A-Fib in 2021, no trouble since. Circulation issues in feet. History of Any Multi-Drug Resistant Organisms: None Reported Past Surgical History: Hernia Repair, Orthopedic Surgery Additional Past Surgical History / Comment(s): Cervical disc removed, cyst removed from tailbone, bronchoscopy/BAL, UVPPP, right inguinal hernia repair, skin cancer removal, colonoscopy. Past Anesthesia/Blood Transfusion Reactions: Previous Problems w/ Anesthesia Additional Past Anesthesia/Blood Transfusion Reaction / Comment(s): "Blood pressure dropped." Past Psychological History: Depression Smoking Status: Former smoker Past Alcohol Use History: None Reported Past Drug Use History: None Reported - Past Family History Mother Family Medical History: Cancer Additional Family Medical History / Comment(s): Lung cancer. Father Additional Family Medical History / Comment(s): Heart disease. General Exam Limitations: no limitations General appearance: alert, in no apparent distress Head exam: Present: atraumatic, normocephalic Eye exam: Present: normal appearance. Absent: scleral icterus, conjunctival injection ENT exam: Present: normal oropharynx Neck exam: Present: normal inspection Respiratory exam: Present: rales. Absent: respiratory distress, wheezes, rhonchi, stridor, accessory muscle use Cardiovascular Exam: Present: regular rate, normal rhythm, normal heart sounds. Absent: systolic murmur, diastolic murmur, rubs, gallop GI/Abdominal exam: Present: soft. Absent: distended, tenderness, guarding, rebound, rigid, mass Extremities exam: Present: normal inspection, normal capillary refill. Absent: pedal edema, calf tenderness Back exam: Present: normal inspection. Absent: CVA tenderness (R), CVA tenderness (L) Neurological exam: Present: alert Skin exam: Present: warm, dry, intact, normal color. Absent: rash Course Vital Signs 08/15/24 08/15/24 08/15/24 21:24 21:41 22:16 Temperature 97.7 F Pulse Rate 118 H 126 H Pulse Rate [ Pulse Oximetery ] Respiratory 18 18 18 Rate Blood Pressure 158/84 134/96 Blood Pressure [Left Arm] O2 Sat by Pulse 97 97 Oximetry 08/15/24 08/15/24 08/16/24 22:30 23:30 00:30 Temperature Pulse Rate 108 H 123 H 115 H Pulse Rate [ Pulse Oximetery ] Respiratory 18 18 18 Rate Blood Pressure 157/89 140/86 115/56 Blood Pressure [Left Arm] O2 Sat by Pulse 95 95 95 Oximetry 08/16/24 08/16/24 08/16/24 01:00 01:30 02:00 Temperature Pulse Rate 141 H 93 111 H Pulse Rate [ Pulse Oximetery ] Respiratory 18 18 18 Rate Blood Pressure 140/74 101/77 131/98 Blood Pressure [Left Arm] O2 Sat by Pulse 95 96 95 Oximetry 08/16/24 08/16/24 08/16/24 03:00 04:00 05:00 Temperature Pulse Rate 94 126 H 104 H Pulse Rate [ Pulse Oximetery ] Respiratory 18 18 18 Rate Blood Pressure 121/110 111/95 167/96 Blood Pressure [Left Arm] O2 Sat by Pulse 97 97 97 Oximetry 08/16/24 08/16/24 08/16/24 06:30 07:41 07:51 Temperature Pulse Rate 105 H 84 108 H Pulse Rate [ Pulse Oximetery ] Respiratory 18 16 Rate Blood Pressure 132/50 107/80 Blood Pressure [Left Arm] O2 Sat by Pulse 97 95 Oximetry 08/16/24 08/16/24 08/16/24 07:59 10:49 11:27 Temperature Pulse Rate 111 H 93 97 Pulse Rate [ Pulse Oximetery ] Respiratory 18 Rate Blood Pressure 149/69 Blood Pressure [Left Arm] O2 Sat by Pulse 95 Oximetry 08/16/24 08/16/24 08/16/24 11:35 13:25 15:17 Temperature Pulse Rate 98 71 74 Pulse Rate [ Pulse Oximetery ] Respiratory 18 Rate Blood Pressure 117/88 Blood Pressure [Left Arm] O2 Sat by Pulse 95 Oximetry 08/16/24 08/16/24 08/16/24 15:23 17:08 18:02 Temperature Pulse Rate 76 93 Pulse Rate [ 74 Pulse Oximetery ] Respiratory 18 Rate Blood Pressure 119/87 Blood Pressure [Left Arm] O2 Sat by Pulse 95 Oximetry 08/16/24 18:09 Temperature 98.3 F Pulse Rate Pulse Rate [ 74 Pulse Oximetery ] Respiratory 20 Rate Blood Pressure Blood Pressure 137/75 [Left Arm] O2 Sat by Pulse 94 L Oximetry Medical Decision Making - Medical Decision Making The patient had chest x-ray that I interpreted as showing right sided infiltrate consistent with pneumonia. No pneumothorax or congestive heart failure Was pt. sent in by a medical professional or institution (, PA, CUSTOMER INSIGHT ANALYST, urgent care, hospital, or shelter...) When possible be specific @ -[No] Did you speak to anyone other than the patient for history (EMS, parent, family, police, friend...)? What history was obtained from this source @ -[No] Did you review nursing and triage notes (agree or disagree)? Why? @ -[I reviewed and agree with nursing and triage notes] Were old charts reviewed (outside hosp., previous admission, EMS record, old EKG, old radiological studies, urgent care reports/EKG's, shelter records)? Report findings @ -[No old charts were reviewed] Differential Diagnosis (chest pain, altered mental status, abdominal pain women, abdominal pain men, vaginal bleeding, weakness, fever, dyspnea, syncope, headache, dizziness, GI bleed, back pain, seizure, CVA, palpatations, mental health, musculoskeletal)? @ -[Differential Palpitations Ventricular arrhythmias, atrial arrhythmias, myocardial infarction, anemia, thyrotoxicosis, electrolyte imbalance, hypokalemia, pulmonary embolism, pulmonary disease, drugs, alcohol, anxiety, stress.... This is not meant to be an all-inclusive list. EKG interpreted by me (3pts min.). @ -[Interpreted as above] X-rays interpreted by me (1pt min.). @ -[I interpreted as above CT interpreted by me (1pt min.). @ -[None done] U/S interpreted by me (1pt. min.). @ -[None done] What testing was considered but not performed or refused? (CT, X-rays, U/S, labs)? Why? @ -[None] What meds were considered but not given or refused? Why? @ -[None] Did you discuss the management of the patient with other professionals (professionals i.e. , PA, CUSTOMER INSIGHT ANALYST, lab, RT, psych nurse, social sciences instructor, dog warden, teacher, certified juvenile probation officer, bilingual case manager)? Give summary @ -[Case discussed with admitting physician and treatment recommendations incorporated Was smoking cessation discussed for >3mins.? @ -[No] Was critical care preformed (if so, how long)? @ -[Yes, 30 minutes Were there social determinants of health that impacted care today? How? (Homelessness, low income, unemployed, alcoholism, drug addiction, transportation, low edu. Level, literacy, decrease access to med. care, snf, rehab)? @ -[No] Was there de-escalation of care discussed even if they declined (Discuss DNR or withdrawal of care, Hospice)? DNR status @ -[No] What co-morbidities impacted this encounter? (DM, HTN, Smoking, COPD, CAD, Cancer, CVA, ARF, Chemo, Hep., AIDS, mental health diagnosis, sleep apnea, morbid obesity)? @ -[Atrial fibrillation Was patient admitted / discharged? Hospital course, mention meds given and route, prescriptions, significant lab abnormalities, going to OR and other p ertinent info. @ -[Patient is 78-year-old man here for evaluation for what he believes is uncontrolled atrial fibrillation. The patient also found to have pneumonia. Patient will be admitted for IV antibiotics and also cardiology consultation. Undiagnosed new problem with uncertain prognosis? @ -[No] Drug Therapy requiring intensive monitoring for toxicity (Heparin, Nitro, Insulin, Cardizem)? @ -[Cardizem Were any procedures done? @ -[No] Diagnosis/symptom? @ -Acute pneumonia Atrial fibrillation with rapid ventricular rate (acute on chronic) Acute, or Chronic, or Acute on Chronic? @ -[acute Uncomplicated (without systemic symptoms) or Complicated (systemic symptoms)? @ -[Uncomplicated Side effects of treatment? @ -[No] Exacerbation, Progression, or Severe Exacerbation? @ -[No] Poses a threat to life or bodily function? How? (Chest pain, [place], [place], pneumonia, PE, COPD, DKA, ARF, appy, cholecystitis, CVA, Diverticulitis, Homicidal, Suicidal, threat to staff... and all critical care pts) @ -[Yes - Lab Data Result diagrams: 08/16/24 05:44 08/15/24 21:39 Lab Results 08/15/24 08/15/24 08/15/24 Range/Units 21:39 21:39 21:39 WBC 27.5 H (3.8-10.6) k/uL RBC 4.73 (4.30-5.90) m/uL Hgb 15.7 (13.0-17.5) gm/dL Hct 46.8 (39.0-53.0) % MCV 99.0 (80.0-100.0) fL MCH 33.2 (25.0-35.0) pg MCHC 33.5 (31.0-37.0) g/dL RDW 13.2 (11.5-15.5) % Plt Count 314 (150-450) k/uL MPV 7.8 Neutrophils % 89 % Lymphocytes % 6 % Monocytes % 2 % Eosinophils % 2 % Basophils % 0 % Neutrophils # 24.4 H (1.3-7.7) k/uL Lymphocytes # 1.7 (1.0-4.8) k/uL Monocytes # 0.7 (0-1.0) k/uL Eosinophils # 0.5 (0-0.7) k/uL Basophils # 0.1 (0-0.2) k/uL PT 12.0 (10.0-12.5) sec INR 1.1 (<1.2) APTT 28.5 (22.0-30.0) sec Sodium 136 L (137-145) mmol/L Potassium 4.4 (3.5-5.1) mmol/L Chloride 106 (98-107) mmol/L Carbon Dioxide 20 L (22-30) mmol/L Anion Gap 10 mmol/L BUN 20 (9-20) mg/dL Creatinine 0.69 (0.66-1.25) mg/dL Est GFR (CKD-EPI)AfAm >90 (>60 ml/min/1.73 sqM) Est GFR (CKD-EPI)NonAf >90 (>60 ml/min/1.73 sqM) Glucose 131 H (74-99) mg/dL Calcium 9.3 (8.4-10.2) mg/dL Magnesium 2.1 (1.6-2.3) mg/dL Total Bilirubin 2.5 H (0.2-1.3) mg/dL AST 55 (17-59) U/L ALT 23 (4-49) U/L Alkaline Phosphatase 89 (38-126) U/L Troponin I (0.000-0.034) ng/mL NT-Pro-B Natriuret Pep 606 pg/mL Total Protein 7.6 (6.3-8.2) g/dL Albumin 4.4 (3.5-5.0) g/dL Triglycerides (0.00-149.00) mg/dL Cholesterol (0.00-200.00) mg/dL LDL Cholesterol, Calc (0.0-131.0) mg/dL VLDL Cholesterol, Calc (5.00-40.00) mg/dL HDL Cholesterol (40.00-60.00) mg/dL Cholesterol/HDL Ratio Ratio Procalcitonin (0.02-0.50) ng/mL 08/15/24 08/15/24 08/15/24 Range/Units 21:39 21:39 21:39 WBC (3.8-10.6) k/uL RBC (4.30-5.90) m/uL Hgb (13.0-17.5) gm/dL Hct (39.0-53.0) % MCV (80.0-100.0) fL MCH (25.0-35.0) pg MCHC (31.0-37.0) g/dL RDW (11.5-15.5) % Plt Count (150-450) k/uL MPV Neutrophils % % Lymphocytes % % Monocytes % % Eosinophils % % Basophils % % Neutrophils # (1.3-7.7) k/uL Lymphocytes # (1.0-4.8) k/uL Monocytes # (0-1.0) k/uL Eosinophils # (0-0.7) k/uL Basophils # (0-0.2) k/uL PT (10.0-12.5) sec INR (<1.2) APTT (22.0-30.0) sec Sodium (137-145) mmol/L Potassium (3.5-5.1) mmol/L Chloride (98-107) mmol/L Carbon Dioxide (22-30) mmol/L Anion Gap mmol/L BUN (9-20) mg/dL Creatinine (0.66-1.25) mg/dL Est GFR (CKD-EPI)AfAm (>60 ml/min/1.73 sqM) Est GFR (CKD-EPI)NonAf (>60 ml/min/1.73 sqM) Glucose (74-99) mg/dL Calcium (8.4-10.2) mg/dL Magnesium (1.6-2.3) mg/dL Total Bilirubin (0.2-1.3) mg/dL AST (17-59) U/L ALT (4-49) U/L Alkaline Phosphatase (38-126) U/L Troponin I <0.012 (0.000-0.034) ng/mL NT-Pro-B Natriuret Pep pg/mL Total Protein (6.3-8.2) g/dL Albumin (3.5-5.0) g/dL Triglycerides 61.70 (0.00-149.00) mg/dL Cholesterol 107.00 (0.00-200.00) mg/dL LDL Cholesterol, Calc 51.3 (0.0-131.0) mg/dL VLDL Cholesterol, Calc 12.34 (5.00-40.00) mg/dL HDL Cholesterol 43.40 (40.00-60.00) mg/dL Cholesterol/HDL Ratio 2.47 Ratio Procalcitonin 0.14 (0.02-0.50) ng/mL - EKG Data -: EKG Interpreted by [facility] EKG shows normal: axis, intervals (Normal), QRS complexes (Normal) Rate: tachycardia (Rate is 119 bpm) Interpretation: nonspecific ST-T wave changes, other (Underlying rhythm is atrial fibrillation with rapid ventricular response) Disposition Clinical Impression: Pneumonia, Atrial fibrillation with RVR Disposition: ADMITTED IP TO THIS [facility] Condition: Poor Is patient prescribed a controlled substance at d/c from ED?: No
[2024-08-15 22:16] LABS: Basophils # (A) 0.1 k/uL (0-0.2); Basophils % (A) 0 %; Eosinophils # (A) 0.5 k/uL (0-0.7); Eosinophils % (A) 2 %; HCT 46.8 % (39.0-53.0); HGB 15.7 gm/dL (13.0-17.5); Lymphocytes # (A) 1.7 k/uL (1.0-4.8); Lymphocytes % (A) 6 %; MCH 33.2 pg (25.0-35.0); MCHC 33.5 g/dL (31.0-37.0); Mean Platelet Volume 7.8; Monocytes # (A) 0.7 k/uL (0-1.0); Monocytes % (A) 2 %; Neutrophils # (A) 24.4 k/uL (1.3-7.7); Neutrophils % (A) 89 %; Platelet Count 314 k/uL (150-450); RBC 4.73 m/uL (4.30-5.90); RDW 13.2 % (11.5-15.5); WBC 27.5 k/uL (3.8-10.6)
[2024-08-15] MEDS: DILTIAZEM 125 MG in SODIUM CHLORIDE 0.9% 100 ML IV SCH (22:17)
[2024-08-15] MEDS: DILTIAZEM DRIP BOLUS FROM BAG 1 MG SOLN IV ONE (22:18)
[2024-08-15 22:19] LABS: ALT 23 U/L (4-49); AST 55 U/L (17-59); African American GFR (CKD) >90 (>60 ml/min/1.73 sqM); Albumin 4.4 g/dL (3.5-5.0); Alkaline Phosphatase 89 U/L (38-126); Anion Gap 10 mmol/L; Blood Urea Nitrogen 20 mg/dL (9-20); Calcium 9.3 mg/dL (8.4-10.2); Carbon Dioxide 20 mmol/L (22-30); Chloride 106 mmol/L (98-107); Glucose 131 mg/dL (74-99); Magnesium 2.1 mg/dL (1.6-2.3); Non-African American GFR(CKD) >90 (>60 ml/min/1.73 sqM); Potassium 4.4 mmol/L (3.5-5.1); Sodium 136 mmol/L (137-145); Total Bilirubin 2.5 mg/dL (0.2-1.3); Total Protein 7.6 g/dL (6.3-8.2)
[2024-08-15 22:28] LABS: NT-Pro-B-Type Natriuretic Pept 606 pg/mL
[2024-08-15 22:29] LABS: INR 1.1 (<1.2); Partial Thromboplastin Time 28.5 sec (22.0-30.0)
[2024-08-15] MEDS: AZITHROMYCIN 500 MG TAB PO STA (23:48)
--- NOTE | 2024-08-16 00:32 | XR ---
EXAM: XR Chest, 1 View CLINICAL HISTORY: ITS.REASON XR Reason: chest pain TECHNIQUE: Frontal view of the chest. COMPARISON: Chest radiograph on 06/09/2024 FINDINGS: Hardware: None. Lungs/pleura: Patchy opacities in the right mid and lower lung, concerning for infectious/inflammatory process. Probable mild left lower lung atelectasis. No pleural effusion or pneumothorax. Heart/mediastinum: Normal. No cardiomegaly. Soft tissues: Unremarkable. Bones: No acute fracture. Degenerative changes of the spine. Upper abdomen: Normal. IMPRESSION: Patchy opacities in the right mid and lower lung, concerning for infectious/inflammatory process. Probable mild left lower lung atelectasis.
[2024-08-16] MEDS: ALPRAZolam 0.5 MG TAB PO STA (01:41)
[2024-08-16] MEDS ORDERED: PNEUMONIA PROTOCOL UTILIZED 1 EACH MISC PO PRN (02:50)
[2024-08-16] MEDS ORDERED: NITROGLYCERIN SL TABS 0.4 MG TAB SUBLINGUAL PRN (02:50)
[2024-08-16] MEDS: HYDROcodone/APAP 7.5-325MG 1 EACH TAB PO SCH (06:13)
[2024-08-16] MEDS: SYMBICORT 160-4.5 MCG INHALER INHALATION SCH (07:47)
[2024-08-16] MEDS: IPRATROPIUM 0.5 MG/2.5 ML NEBU INHALATION SCH (07:47)
[2024-08-16] MEDS ORDERED: IPRATROPIUM-ALBUTEROL 3 ML NEB INHALATION SCH (08:00)
[2024-08-16 08:20] LABS: Basophils # (A) 0.1 k/uL (0-0.2); Basophils % (A) 0 %; Eosinophils # (A) 0.9 k/uL (0-0.7); Eosinophils % (A) 4 %; HCT 45.5 % (39.0-53.0); HGB 14.7 gm/dL (13.0-17.5); Lymphocytes # (A) 2.3 k/uL (1.0-4.8); Lymphocytes % (A) 10 %; MCH 33.2 pg (25.0-35.0); MCHC 32.3 g/dL (31.0-37.0); MCV 102.5 fL (80.0-100.0); Macrocytosis Slight; Mean Platelet Volume 7.7; Monocytes # (A) 0.7 k/uL (0-1.0); Monocytes % (A) 3 %; Neutrophils # (A) 18.9 k/uL (1.3-7.7); Neutrophils % (A) 82 %; Platelet Count 325 k/uL (150-450); RBC 4.44 m/uL (4.30-5.90); RDW 12.8 % (11.5-15.5); WBC 23.1 k/uL (3.8-10.6)
[2024-08-16] MEDS ORDERED: METOPROLOL TARTRATE 50 MG TAB PO SCH (09:00)
--- NOTE | 2024-08-16 10:38 | P.CRDCN ---
History of Present Illness History of present illness: HISTORY OF PRESENT ILLNESS: This is a 78-year-old male with a past medical history significant for paroxysmal atrial fibrillation, COPD, and former nicotine dependence. Patient follows in the office with Dr. Duran. We have been asked to see the patient in consultation for A-fib with RVR. Patient examined at the bedside in the emergency room. Patient presented to the hospital for chief complaint of shortness of breath. He states he has been feeling short of breath for the past few days. He also reports having palpitations. He reports a cough with dark brown sputum production. He denies any fever or chills. Denies any nausea vomiting or diarrhea. Patient was found to be in A-fib with RVR. He was started on IV Cardizem. At the time of examination he remains in atrial fi brillation with a heart rate in the [id number]. It is noted that the patient had an event monitor in the office revealing a 22% burden of atrial fibrillation. Patient is supposed to be evaluated outpatient by Dr. Scruggs for possible ablation DIAGNOSTICS: - EKG reveals A-fib with RVR - Chest xray patchy opacities in right mid and lower lung concerning for infectious/inflammatory process. Probable mid left lower lung atelectasis - Laboratory data: WBC 23.1. Hemoglobin 14.7. Platelet count 325. Sodium 136. Potassium 4.4. BUN 20. Creatinine 0.69. Troponin negative x 3. proBNP 606. - Current home cardiac medications include Eliquis 5 mg twice a day, Cardizem 30 mg 4 times a day, metoprolol tartrate 50 mg twice a day - Most recent echocardiogram obtained in May 2024 revealed ejection fraction 55 to 60%, trace to mild TR -Patient underwent Lexiscan stress test on 06/20/2024 in the office which was negative for ischemia REVIEW OF SYSTEMS: At the time of my exam: CONSTITUTIONAL: Denies fever or chills. HEENT: Denies blurred vision, vision changes, or eye pain. Denies hemoptysis CARDIOVASCULAR: Denies chest pain. Denies orthopnea. Denies PND. Denies palpitations RESPIRATORY: Denies shortness of breath. GASTROINTESTINAL: Denies abdominal pain. Denies nausea or vomiting. HEMATOLOGIC: Denies bleeding disorders. GENITOURINARY: Denies any blood in urine. SKIN: Denies pruitis. Denies rash. PHYSICAL EXAM: VITAL SIGNS: Reviewed. GENERAL: Well-developed in no acute distress. HEENT: Head is normocephalic. Pupils are equal, round. Sclerae anicteric. Mucous membranes of the mouth are moist. Neck supple. No JVD or thyromegaly LUNGS: Respirations even and unlabored. Lungs with rhonchi and expiratory wheezing, right more than left HEART: Irregular rate and rhythm. S1 and S2 heard. ABDOMEN: Soft. Nondistended. Nontender. EXTREMITIES: Normal range of motion. No clubbing or cyanosis. Peripheral pulses intact. No lower extremity edema NEUROLOGIC: Awake and alert. Oriented x 3. ASSESSMENT: Shortness of breath Possible COPD exacerbation Right sided pneumonia Leukocytosis Paroxysmal atrial fibrillation with RVR 22% A-fib burden noted on recent event monitor Former nicotine dependence PLAN: No need to repeat echocardiogram as this was performed in May 2024 Discontinue IV Cardizem Increase oral Cardizem to 60 mg 3 times a day Increase metoprolol to tartrate to 75 mg twice a day Consult pulmonary, Dr. Underwood for evaluation Continue telemetry monitoring Eventual outpatient EP evaluation for possible A-fib ablation Further recommendations pending patient course Nurse practitioner note has been reviewed by physician. Signing provider agrees with the documented findings, assessment, and plan of care documented by LICENSING ENGINEER as a scribe. Past Medical History Past Medical History: Atrial Fibrillation, Cancer, COPD, Hypertension, Osteoarthritis (OA), Pneumonia, Sleep Apnea/CPAP/BIPAP Additional Past Medical History / Comment(s): Recent dizziness and SOB. Hx tracheobronchitis. No device used for Sleep Apnea. Degenerative disc disease, arthritis in multiple joints, RLS. Hx skin cancer. Hx A-Fib in 2021, no trouble since. Circulation issues in feet. History of Any Multi-Drug Resistant Organisms: None Reported Past Surgical History: Hernia Repair, Orthopedic Surgery Additional Past Surgical History / Comment(s): Cervical disc removed, cyst removed from tailbone, bronchoscopy/BAL, UVPPP, right inguinal hernia repair, skin cancer removal, colonoscopy. Past Anesthesia/Blood Transfusion Reactions: Previous Problems w/ Anesthesia Additional Past Anesthesia/Blood Transfusion Reaction / Comment(s): "Blood pressure dropped." Past Psychological History: Depression Smoking Status: Former smoker Past Alcohol Use History: None Reported Past Drug Use History: None Reported - Past Family History Mother Family Medical History: Cancer Additional Family Medical History / Comment(s): Lung cancer. Father Additional Family Medical History / Comment(s): Heart disease. Medications and Allergies Home Medications Medication Instructions Recorded Confirmed Type Morphine Sulfate ER [Ms Contin] 15 mg PO BID 03/31/19 08/16/24 History Budesonide/Glycopyr/Formoterol 2 puff INHALATION RT-BID 03/10/24 08/16/24 History [Breztri Aerosphere Inhaler] Ipratropium-Albuterol Nebulize 3 ml INHALATION RT-DAILY 03/10/24 08/16/24 History [Duoneb 0.5 mg-3 mg/3 ml Soln] HYDROcodone/APAP 7.5-325MG [[place] 1 tab PO Q6HR 06/09/24 08/16/24 History 7.5-325] Apixaban [Eliquis] 5 mg PO BID #60 tab 06/12/24 08/16/24 Rx Diltiazem Oral [Cardizem*] 30 mg PO QID #120 tab 06/12/24 08/16/24 Rx Metoprolol Tartrate [Lopressor] 50 mg PO BID #60 tab 06/12/24 08/16/24 Rx QUEtiapine [SEROquel] 25 mg PO BID 08/16/24 08/16/24 History Allergies Allergy/AdvReac Type Severity Reaction Status Date / Time No Known Allergies Allergy Verified 08/16/24 09:51 Physical Exam Vitals: Vital Signs Temp Pulse Resp BP Pulse Ox 08/16/24 07:59 111 H 08/16/24 07:51 108 H 08/16/24 07:41 84 16 107/80 95 08/16/24 06:30 105 H 18 132/50 97 08/16/24 05:00 104 H 18 167/96 97 08/16/24 04:00 126 H 18 111/95 97 08/16/24 03:00 94 18 121/110 97 08/16/24 02:00 111 H 18 131/98 95 08/16/24 01:30 93 18 101/77 96 08/16/24 01:00 141 H 18 140/74 95 08/16/24 00:30 115 H 18 115/56 95 08/15/24 23:30 123 H 18 140/86 95 08/15/24 22:30 108 H 18 157/89 95 08/15/24 22:16 126 H 18 134/96 97 08/15/24 21:41 18 08/15/24 21:24 97.7 F 118 H 18 158/84 97 Intake and Output 08/15/24 08/16/24 08/16/24 22:59 06:59 14:59 Other: Weight 104.326 kg Results 08/16/24 05:44 08/15/24 21:39 Cardiac Enzymes 08/15/24 08/15/24 08/16/24 Range/Units 21:39 21:39 04:09 AST 55 (17-59) U/L Troponin I <0.012 <0.012 (0.000-0.034) ng/mL 08/16/24 Range/Units 05:44 AST (17-59) U/L Troponin I <0.012 (0.000-0.034) ng/mL Coagulation 08/15/24 Range/Units 21:39 PT 12.0 (10.0-12.5) sec APTT 28.5 (22.0-30.0) sec CBC 08/15/24 08/16/24 Range/Units 21:39 05:44 WBC 27.5 H 23.1 H (3.8-10.6) k/uL RBC 4.73 4.44 (4.30-5.90) m/uL Hgb 15.7 14.7 (13.0-17.5) gm/dL Hct 46.8 45.5 (39.0-53.0) % Plt Count 314 325 (150-450) k/uL Comprehensive Metabolic Panel 08/15/24 Range/Units 21:39 Sodium 136 L (137-145) mmol/L Potassium 4.4 (3.5-5.1) mmol/L Chloride 106 (98-107) mmol/L Carbon Dioxide 20 L (22-30) mmol/L BUN 20 (9-20) mg/dL Creatinine 0.69 (0.66-1.25) mg/dL Glucose 131 H (74-99) mg/dL Calcium 9.3 (8.4-10.2) mg/dL AST 55 (17-59) U/L ALT 23 (4-49) U/L Alkaline Phosphatase 89 (38-126) U/L Total Protein 7.6 (6.3-8.2) g/dL Albumin 4.4 (3.5-5.0) g/dL Current Medications Generic Name Dose Route Start Last Admin Trade Name Freq PRN Reason Stop Dose Admin Hydrocodone Bitart/Acetaminophen 1 each 08/16/24 06:00 08/16/24 06:13 Hydrocodone/Apap 7.5-325mg 1 Each Tab PO 1 each Q6HR BALTAZAR Administration Apixaban 5 mg 08/16/24 09:00 Apixaban 5 Mg Tab PO BID [facility] Protocol Azithromycin 500 mg 08/17/24 09:00 Azithromycin 500 Mg Tab PO 08/18/24 09:01 DAILY [facility] Protocol Budesonide/Formoterol Fumarate 2 puff 08/16/24 08:00 08/16/24 07:47 Symbicort 160-4.5 Mcg Inhaler INHALATION 2 puff RT-BID BALTAZAR Administration Diltiazem HCl 60 mg 08/16/24 09:30 Diltiazem Oral 60 Mg Tab PO TID [facility] Famotidine 20 mg 08/16/24 09:00 Famotidine 20 Mg/2 Ml Vial IV Q12HR [facility] Ceftriaxone Sodium 2 gm/ 50 mls @ 100 mls/hr 08/17/24 09:00 Sodium Chloride IVPB 08/20/24 09:29 Q24HR [facility] Protocol Ipratropium [place] 0.5 mg 08/16/24 08:00 08/16/24 07:47 Ipratropium 0.5 Mg/2.5 Ml Nebu INHALATION 0.5 mg RT-QID [facility] Administration Metoprolol Tartrate 75 mg 08/16/24 09:00 Metoprolol Tartrate 50 Mg Tab PO BID [facility] Miscellaneous Information 1 each 08/16/24 02:50 Pneumonia Protocol Utilized 1 Each Misc PO ONCE PRN Per Protocol Morphine Sulfate 15 mg 08/16/24 09:00 Morphine Sulfate Er 15 Mg Tablet PO BID [facility] Protocol Nitroglycerin 0.4 mg 08/16/24 02:50 Nitroglycerin Sl Tabs 0.4 Mg Tab SUBLINGUAL Q5M PRN Chest Pain Intake and Output 08/15/24 08/16/24 08/16/24 22:59 06:59 14:59 Other: Weight 104.326 kg 08/16/24 05:44 08/15/24 21:39
[2024-08-16] MEDS: DILTIAZEM ORAL 30 MG TAB PO SCH (10:43)
[2024-08-16] MEDS: MORPHINE SULFATE ER 15 MG TABLET PO SCH (10:50)
[2024-08-16] MEDS: DILTIAZEM ORAL 60 MG TAB PO SCH (10:50)
[2024-08-16] MEDS: APIXABAN 5 MG TAB PO SCH (10:50)
[2024-08-16] MEDS: METOPROLOL TARTRATE 50 MG TAB PO SCH (10:50)
[2024-08-16] MEDS: FAMOTIDINE 20 MG/2 ML VIAL IV SCH (10:51)
--- NOTE | 2024-08-16 11:50 | P.HPIM ---
History of Present Illness This is a pleasant 78 years old male with past medical history of multiple problems including A-fib. Presents because of palpitation of 1 to 2 days duration He denies chest pain or dyspnea Patient is coughing a lot. No significant phlegm However patient feels very weak and lethargic for about 1 week He denies abdominal pain vomiting or diarrhea. No urinary symptoms. He states he quit smoking in . No alcohol or illicit drugs. Is afebrile and vitals unremarkable including CBC, BMP, LFT, INR. Troponin x 3 are negative. EKG showing A-fib with RVR and 121. Chest x-ray showing patchy opacity in the right mid and lower lung. Currently his heart rate is 126 and blood pressure 158/86 His leukocytosis is chronic 10-18,000 but is worse during this admission up to 27,000 and 23,000 Review of Systems Review of systems CONSTITUTIONAL: No fever, no malaise, no fatigue. HEENT: No recent visual problems or hearing problems. Denied any sore throat. CARDIOVASCULAR: No orthopnea, PND, no palpitations, no syncope. PULMONARY: No shortness of breath, no cough, no hemoptysis. GASTROINTESTINAL: No diarrhea, no nausea, no vomiting, no abdominal pain. Normoactive bowel sounds. NEUROLOGICAL: No headaches, no weakness, no numbness. HEMATOLOGICAL: Denies any bleeding or petechiae. GENITOURINARY: Denies any burning micturition, frequency, or urgency. MUSCULOSKELETAL/RHEUMATOLOGICAL: Denies any joint pain, swelling, or any muscle pain. ENDOCRINE: Denies any polyuria or polydipsia. Past Medical History Past Medical History: Atrial Fibrillation, Cancer, COPD, Hypertension, Osteoarthritis (OA), Pneumonia, Sleep Apnea/CPAP/BIPAP Additional Past Medical History / Comment(s): Recent dizziness and SOB. Hx tracheobronchitis. No device used for Sleep Apnea. Degenerative disc disease, arthritis in multiple joints, RLS. Hx skin cancer. Hx A-Fib in 2021, no trouble since. Circulation issues in feet. History of Any Multi-Drug Resistant Organisms: None Reported Past Surgical History: Hernia Repair, Orthopedic Surgery Additional Past Surgical History / Comment(s): Cervical disc removed, cyst removed from tailbone, bronchoscopy/BAL, UVPPP, right inguinal hernia repair, skin cancer removal, colonoscopy. Past Anesthesia/Blood Transfusion Reactions: Previous Problems w/ Anesthesia Additional Past Anesthesia/Blood Transfusion Reaction / Comment(s): "Blood pressure dropped." Past Psychological History: Depression Smoking Status: Former smoker Past Alcohol Use History: None Reported Past Drug Use History: None Reported - Past Family History Mother Family Medical History: Cancer Additional Family Medical History / Comment(s): Lung cancer. Father Additional Family Medical History / Comment(s): Heart disease. Medications and Allergies Home Medications Medication Instructions Recorded Confirmed Type Morphine Sulfate ER [Ms Contin] 15 mg PO BID 03/31/19 08/16/24 History Budesonide/Glycopyr/Formoterol 2 puff INHALATION RT-BID 03/10/24 08/16/24 History [Breztri Aerosphere Inhaler] Ipratropium-Albuterol Nebulize 3 ml INHALATION RT-DAILY 03/10/24 08/16/24 History [Duoneb 0.5 mg-3 mg/3 ml Soln] HYDROcodone/APAP 7.5-325MG [[place] 1 tab PO Q6HR 06/09/24 08/16/24 History 7.5-325] Apixaban [Eliquis] 5 mg PO BID #60 tab 06/12/24 08/16/24 Rx Diltiazem Oral [Cardizem*] 30 mg PO QID #120 tab 06/12/24 08/16/24 Rx Metoprolol Tartrate [Lopressor] 50 mg PO BID #60 tab 06/12/24 08/16/24 Rx QUEtiapine [SEROquel] 25 mg PO BID 08/16/24 08/16/24 History Allergies Allergy/AdvReac Type Severity Reaction Status Date / Time No Known Allergies Allergy Verified 08/16/24 09:51 Physical Exam Vitals: Vital Signs Temp Pulse Resp BP Pulse Ox 08/16/24 11:35 98 08/16/24 11:27 97 08/16/24 10:49 93 18 149/69 95 08/16/24 07:59 111 H 08/16/24 07:51 108 H 08/16/24 07:41 84 16 107/80 95 08/16/24 06:30 105 H 18 132/50 97 08/16/24 05:00 104 H 18 167/96 97 08/16/24 04:00 126 H 18 111/95 97 08/16/24 03:00 94 18 121/110 97 08/16/24 02:00 111 H 18 131/98 95 08/16/24 01:30 93 18 101/77 96 08/16/24 01:00 141 H 18 140/74 95 08/16/24 00:30 115 H 18 115/56 95 08/15/24 23:30 123 H 18 140/86 95 08/15/24 22:30 108 H 18 157/89 95 08/15/24 22:16 126 H 18 134/96 97 08/15/24 21:41 18 08/15/24 21:24 97.7 F 118 H 18 158/84 97 Intake and Output 08/15/24 08/16/24 08/16/24 22:59 06:59 14:59 Other: Weight 104.326 kg GENERAL: The patient is alert and oriented x3, not in any acute distress. Well developed, well nourished. Patient is lethargic and weak HEENT: Pupils are round and equally reacting to light. EOMI. No scleral icterus. No conjunctival pallor. Normocephalic, atraumatic. No pharyngeal erythema. No thyromegaly. CARDIOVASCULAR: S1 and S2 present. No murmurs, rubs, or gallops. PULMONARY: Chest is clear to auscultation, no wheezing , no crackles. ABDOMEN: Soft, nontender, nondistended, normoactive bowel sounds. No palpable organomegaly. MUSCULOSKELETAL: No joint swelling or deformity. EXTREMITIES: No cyanosis, clubbing, or pedal edema. NEUROLOGICAL: Gross neurological examination did not reveal any focal deficits. SKIN: No rashes. no petechiae. Results CBC & Chem 7: 08/16/24 05:44 08/15/24 21:39 Labs: Abnormal Lab Results - Last 24 Hours (Table) 08/15/24 08/15/24 08/16/24 Range/Units 21:39 21:39 05:44 WBC 27.5 H 23.1 H (3.8-10.6) k/uL MCV 102.5 H (80.0-100.0) fL Neutrophils # 24.4 H 18.9 H (1.3-7.7) k/uL Eosinophils # 0.9 H (0-0.7) k/uL Sodium 136 L (137-145) mmol/L Carbon Dioxide 20 L (22-30) mmol/L Glucose 131 H (74-99) mg/dL Total Bilirubin 2.5 H (0.2-1.3) mg/dL Assessment and Plan Assessment: right mid and lower lobe community-acquired pneumonia A-fib and RVR, secondary to above. Present on admission Hypertension Osteoarthritis History of sleep apnea on BiPAP Plan: Started on ceftriaxone and Zithromax Follow-up culture results Continue with metoprolol, Cardizem as per veneer taping machine offbearer to 60 mg 3 times daily Continue with Eliquis Cardiology consult Pulmonary team consult DVT prophylaxis on Eliquis GI prophylaxis Pepcid PT/OT evaluation Prognosis is guarded
[2024-08-16] MEDS ORDERED: ONDANSETRON 4 MG in SODIUM CHLORIDE 0.9% 50 ML IVPB PRN (12:10)
[2024-08-16] MEDS: PROMETHAZINE 25 MG TAB PO PRN (13:27)
[2024-08-16] MEDS: CEFEPIME 2 GM in SODIUM CHLORIDE 0.9% 100 ML IVPB SCH (13:34)
--- NOTE | 2024-08-16 14:54 | P.CNPUL ---
History of Present Illness Consult date: 08/16/24 Reason for consult: dyspnea, pneumonia History of present illness: This is a pleasant 78-year-old male patient who is known to our service as the patient is known to have COPD and recurrent pneumonias. The patient came into the emergency department complaining of palpitations a few days duration the patient was found to be in atrial fibrillation. At the same time, the patient was having increased cough and congestion and worsening shortness of breath. Based on that, the patient was brought into the hospital for further evaluation and treatment and a pulmonary consultation was requested for an underlying pneumonia. The patient at this point in time is hemodynamically stable, in atrial fibrillation with a controlled rate. He has a previous history of paroxysmal atrial fibrillation and he has been evaluated by cardiology in the past regarding this issue. His white cell count is at 27.5 with a hemoglobin 15.7 and a platelet count of 314. Normal coagulation profile. Troponins are negative. proBNP level is not elevated. BUN is 20 with a creatinine 0.6 and a sodium level is at 136 and a potassium level of 4.4. Chest x-ray was done Emergency Department and the patient was found to have patchy opacity in the right mid and right lower lung consistent with an underlying pneumonia. He is currently on room air oxygen with a pulse ox of 95%. Noted the patient was in the hospital back in May 2024. At that time, he was treated for COPD exacerbation and atrial fibrillation with RVR. Noted the patient has had previous respiratory and infectious with gram-negative bacteria in the bronchoscopy and the bronchoalveolar lavage that was obtained back in 03/12/2024 showed infection with Serratia and Pseudomonas and the patient was treated accordingly. Subsequent sputum samples from 06/10/2024 was still consistent with pseudomonal growth. He is known to have COPD. He is known to have obstructive sleep apnea which is essentially severe with an AHI of 85. He is known to have PAD, hypertension degenerative arthritis and restless leg. His most recent echocardiogram from 06/10/2024 showed a left ventricular ejection fraction of 55 to 60%, moderate RV dilatation. RV pressures were essentially within normal limits. There was moderate aortic dilatation at the level of the sinuses measured to be at 39 mm. No altered mentation. No hemoptysis. No pleurisy. Review of Systems Eyes: denies as per HPI, denies blurred vision, denies bulging eye, denies decreased vision, denies diplopia, denies discharge, denies dry eye, denies irritation, denies itching, denies pain, denies photophobia, denies loss of peripheral vision, denies loss of vision, denies tunnel vision/blind spots Ears: deny: decreased hearing, ear discharge, earache, tinnitus Ears, nose, mouth and throat: Reports as per HPI Breasts: absent: as per HPI, gynecomastia Cardiovascular: Reports dyspnea on exertion, Reports irregular heart beat, Reports palpitations, Reports rapid heart beat, Reports shortness of breath Respiratory: Reports cough, Reports dyspnea Gastrointestinal: Reports as per HPI Genitourinary: Reports as per HPI Musculoskeletal: Reports as per HPI Musculoskeletal: absent: ankle pain, ankle stiffness, ankle swelling, as per HPI, elbow pain, elbow stiffness, elbow swelling, foot pain, foot stiffness, foot swelling, hand pain, hand stiffness, hand swelling, hip pain, hip stiffness, hip swelling, knee pain, knee stiffness, knee swelling, shoulder pain, shoulder stiffness, shoulder swelling, wrist pain, wrist stiffness, wrist swelling Integumentary: Reports as per HPI Neurological: Reports as per HPI Psychiatric: Reports as per HPI Endocrine: Reports as per HPI Hematologic/Lymphatic: Reports as per HPI Allergic/Immunologic: Reports as per HPI Past Medical History Past Medical History: Atrial Fibrillation, Cancer, COPD, Hypertension, Osteoarthritis (OA), Pneumonia, Sleep Apnea/CPAP/BIPAP Additional Past Medical History / Comment(s): Recent dizziness and SOB. Hx tracheobronchitis. No device used for Sleep Apnea. Degenerative disc disease, arthritis in multiple joints, RLS. Hx skin cancer. Hx A-Fib in 2021, no trouble since. Circulation issues in feet. History of Any Multi-Drug Resistant Organisms: None Reported Past Surgical History: Hernia Repair, Orthopedic Surgery Additional Past Surgical History / Comment(s): Cervical disc removed, cyst removed from tailbone, bronchoscopy/BAL, UVPPP, right inguinal hernia repair, skin cancer removal, colonoscopy. Past Anesthesia/Blood Transfusion Reactions: Previous Problems w/ Anesthesia Additional Past Anesthesia/Blood Transfusion Reaction / Comment(s): "Blood pressure dropped." Past Psychological History: Depression Smoking Status: Former smoker Past Alcohol Use History: None Reported Past Drug Use History: None Reported - Past Family History Mother Family Medical History: Cancer Additional Family Medical History / Comment(s): Lung cancer. Father Additional Family Medical History / Comment(s): Heart disease. Medications and Allergies Home Medications Medication Instructions Recorded Confirmed Type Morphine Sulfate ER [Ms Contin] 15 mg PO BID 03/31/19 08/16/24 History Budesonide/Glycopyr/Formoterol 2 puff INHALATION RT-BID 03/10/24 08/16/24 History [Breztri Aerosphere Inhaler] Ipratropium-Albuterol Nebulize 3 ml INHALATION RT-DAILY 03/10/24 08/16/24 History [Duoneb 0.5 mg-3 mg/3 ml Soln] HYDROcodone/APAP 7.5-325MG [[place] 1 tab PO Q6HR 06/09/24 08/16/24 History 7.5-325] Apixaban [Eliquis] 5 mg PO BID #60 tab 06/12/24 08/16/24 Rx Diltiazem Oral [Cardizem*] 30 mg PO QID #120 tab 06/12/24 08/16/24 Rx Metoprolol Tartrate [Lopressor] 50 mg PO BID #60 tab 06/12/24 08/16/24 Rx QUEtiapine [SEROquel] 25 mg PO BID 08/16/24 08/16/24 History Allergies Allergy/AdvReac Type Severity Reaction Status Date / Time No Known Allergies Allergy Verified 08/16/24 09:51 Physical Exam Vitals: Vital Signs Temp Pulse Resp BP Pulse Ox 08/16/24 11:35 98 08/16/24 11:27 97 08/16/24 10:49 93 18 149/69 95 08/16/24 07:59 111 H 08/16/24 07:51 108 H 08/16/24 07:41 84 16 107/80 95 08/16/24 06:30 105 H 18 132/50 97 08/16/24 05:00 104 H 18 167/96 97 08/16/24 04:00 126 H 18 111/95 97 08/16/24 03:00 94 18 121/110 97 08/16/24 02:00 111 H 18 131/98 95 08/16/24 01:30 93 18 101/77 96 08/16/24 01:00 141 H 18 140/74 95 08/16/24 00:30 115 H 18 115/56 95 08/15/24 23:30 123 H 18 140/86 95 08/15/24 22:30 108 H 18 157/89 95 08/15/24 22:16 126 H 18 134/96 97 08/15/24 21:41 18 08/15/24 21:24 97.7 F 118 H 18 158/84 97 Intake and Output 08/15/24 08/16/24 08/16/24 22:59 06:59 14:59 Other: Weight 104.326 kg General appearance,, comfortable the patient is currently on room air oxygen Head exam was generally normal. There was no scleral icterus or corneal arcus. Mucous membranes were moist. Neck was supple and without jugular venous distension, thyromegaly, or carotid bruits. Carotids were easily palpable bilaterally. There was no adenopathy. Lung sounds are diminished and the patient is scattered rhonchi heard throughout the lung taylor bilaterally Cardiac exam revealed the PMI to be normally situated and sized. The rhythm was irregular and no extrasystoles were noted during several minutes of auscultation. The first and second heart sounds were normal and physiologic splitting of the second heart sound was noted. There were no murmurs, rubs, clicks, or gallops. Abdominal exam revealed normal bowel sounds. The abdomen was soft, non-tender, and without masses, organomegaly, or appreciable enlargement of the abdominal aorta. Examination of the extremities revealed easily palpable radial, femoral and pedal pulses. There was no cyanosis, clubbing or edema. Examination of the skin revealed no evidence of significant rashes, suspicious appearing nevi or other concerning lesions. Neurologically, the patient is awake and alert and the patient does not have any focal neurological deficit. Cranial nerves are essentially intact. Results - Laboratory Findings CBC and BMP: 08/16/24 05:44 08/15/24 21:39 PT/INR, D-dimer PT 12.0 sec (10.0-12.5) 08/15/24 21:39 INR 1.1 (<1.2) 08/15/24 21:39 Abnormal lab findings: Abnormal Labs 08/15/24 08/15/24 08/16/24 21:39 21:39 05:44 WBC 27.5 H 23.1 H MCV 102.5 H Neutrophils # 24.4 H 18.9 H Eosinophils # 0.9 H Sodium 136 L Carbon Dioxide 20 L Glucose 131 H Total Bilirubin 2.5 H - Diagnostic Findings Chest x-ray: image reviewed Assessment and Plan Plan: Right lung pneumonia with patchy areas of consolidation, likely multilobar. Rule out recurrent gram-negative pneumonia with Pseudomonas aeruginosa as the patient was infected with Pseudomonas back in February and May 2024. He required inpatient therapy with antibiotics. Acute on chronic shortness of breath, multifactorial, as the patient is known to have COPD with recurrent pneumonia and the patient was in A-fib RVR and currently is back to normal sinus rhythm. Paroxysmal atrial fibrillation. Currently on a combination of Cardizem, metoprolol and anticoagulation with Eliquis. LV function is preserved. COPD with recurrent respiratory infections bronchoscopy endobronchial lavage t hat was done on 03/12/2024 and the cultures was positive for Serratia and Pseudomonas and the patient had another hospitalization back in May 2024 and the sputum was still showing persistent pseudomonal growth. Obstructive sleep apnea with an AHI of 85 History of skin cancer, resected from the forehead PAD Hypertension RLS Degenerative arthritis Plan Patient currently on room air oxygen Continue DuoNeb nebulized treatments [id number] Start the patient on IV cefepime 2 g every 12 hours Obtain sputum Gram stain and culture Breztri will be replaced with Symbicort during his hospital stay Echocardiogram shows a preserved LV function The patient is on metoprolol and Cardizem The patient is on anticoagulation with Eliquis CPAP therapy is recommended the patient will be asked to bring his CPAP machine from home Cardiology consultation Follow-up chest x-ray with next 24 to 48 hours Will continue to follow
[2024-08-17] MEDS ORDERED: AZITHROMYCIN 500 MG TAB PO SCH (09:00)
[2024-08-17] MEDS ORDERED: ASPIRIN 325 MG TAB PO SCH (09:00)
[2024-08-17 09:47] LABS: Chol/HDL Ratio 2.47 Ratio; LDL Cholesterol,Calculated 51.3 mg/dL (0.0-131.0); VLDL Calculation 12.34 mg/dL (5.00-40.00)
--- NOTE | 2024-08-17 11:11 | P.PN ---
Subjective HISTORY OF PRESENT ILLNESS: This is a 78-year-old male with a past medical history significant for paroxysmal atrial fibrillation, COPD, and former nicotine dependence. Patient follows in the office with Dr. Duran. We have been asked to see the patient in consultation for A-fib with RVR. Patient examined at the bedside in the emergency room. Patient presented to the hospital for chief complaint of shortness of breath. He states he has been feeling short of breath for the past few days. He also reports having palpitations. He reports a cough with dark brown sputum production. He denies any fever or chills. Denies any nausea vomiting or diarrhea. Patient was found to be in A-fib with RVR. He was started on IV Cardizem. At the time of examination he remains in atrial fibrillation with a heart rate in the [id number]. It is noted that the patient had an event monitor in the office revealing a 22% burden of atrial fibrillation. Patient is supposed to be evaluated outpatient by Dr. Scruggs for possible ablation DIAGNOSTICS: - EKG reveals A-fib with RVR - Chest xray patchy opacities in right mid and lower lung concerning for infectious/inflammatory process. Probable mid left lower lung atelectasis - Laboratory data: WBC 23.1. Hemoglobin 14.7. Platelet count 325. Sodium 136. Potassium 4.4. BUN 20. Creatinine 0.69. Troponin negative x 3. proBNP 606. - Current home cardiac medications include Eliquis 5 mg twice a day, Cardizem 30 mg 4 times a day, metoprolol tartrate 50 mg twice a day - Most recent echocardiogram obtained in May 2024 revealed ejection fraction 55 to 60%, trace to mild TR -Patient underwent Lexiscan stress test on 06/20/2024 in the office which was negative for ischemia 08/17/2024 Patient examined this morning at the bedside. Patient denies chest pain or pressure. He reports improvement in his shortness of breath today. He continues to have a cough. Telemetry reveals atrial fibrillation with controlled ventricular rate in the 70s. He is maintained on antibiotics for his pneumonia. PHYSICAL EXAM: VITAL SIGNS: Reviewed. GENERAL: Well-developed in no acute distress. HEENT: Head is normocephalic. Pupils are equal, round. Sclerae anicteric. Mucous membranes of the mouth are moist. Neck supple. No JVD or thyromegaly LUNGS: Respirations even and unlabored. Lungs with scattered rhonchi, right more than left HEART: Irregular rate and rhythm. S1 and S2 heard. ABDOMEN: Soft. Nondistended. Nontender. EXTREMITIES: Normal range of motion. No clubbing or cyanosis. Peripheral pulses intact. No lower extremity edema NEUROLOGIC: Awake and alert. Oriented x 3. ASSESSMENT: Shortness of breath Possible COPD exacerbation Right sided pneumonia Leukocytosis Paroxysmal atrial fibrillation with RVR 22% A-fib burden noted on recent event monitor Former nicotine dependence PLAN: No need to repeat echocardiogram as this was performed in May 2024 Continue current dose of Cardizem and metoprolol Continue telemetry monitoring Eventual outpatient EP evaluation for possible A-fib ablation Further recommendations pending patient course Nurse practitioner note has been reviewed by physician. Signing provider agrees with the documented findings, assessment, and plan of care documented by PHYSICAL THERAPY INSTRUCTOR as a scribe. Objective - Vital Signs Vital signs: Vital Signs Temp 97.9 F 08/17/24 07:53 Pulse 70 08/17/24 09:25 Resp 20 08/17/24 07:53 BP 137/79 08/17/24 07:53 Pulse Ox 97 08/17/24 09:04 FiO2 Intake & Output 08/16/24 08/17/24 08/17/24 18:59 06:59 18:59 Intake Total 550 Balance 550 Weight 104.326 kg 110.4 kg Intake: IV 10 Invasive Line 2 10 Oral 540 Other: Voiding Method Toilet Toilet # Voids 1 - Labs CBC & Chem 7: 08/16/24 05:44 08/15/24 21:39
--- NOTE | 2024-08-17 13:25 | P.PN ---
Subjective Progress Note Date: 08/17/24 This is a pleasant 78-year-old male patient who is known to our service as the patient is known to have COPD and recurrent pneumonias. The patient came into the emergency department complaining of palpitations a few days duration the patient was found to be in atrial fibrillation. At the same time, the patient was having increased cough and congestion and worsening shortness of breath. Based on that, the patient was brought into the hospital for further evaluation and treatment and a pulmonary consultation was requested for an underlying pneumonia. The patient at this point in time is hemodynamically stable, in atrial fibrillation with a controlled rate. He has a previous history of paroxysmal atrial fibrillation and he has been evaluated by cardiology in the past regarding this issue. His white cell count is at 27.5 with a hemoglobin 15.7 and a platelet count of 314. Normal coagulation profile. Troponins are negative. proBNP level is not elevated. BUN is 20 with a creatinine 0.6 and a sodium level is at 136 and a potassium level of 4.4. Chest x-ray was done Emergency Department and the patient was found to have patchy opacity in the right mid and right lower lung consistent with an underlying pneumonia. He is currently on room air oxygen with a pulse ox of 95%. Noted the patient was in the hospital back in May 2024. At that time, he was treated for COPD exacerbation and atrial fibrillation with RVR. Noted the patient has had previous respiratory and infectious with gram-negative bacteria in the bronchoscopy and the bronchoalveolar lavage that was obtained back in 03/12/2024 showed infection with Serratia and Pseudomonas and the patient was treated accordingly. Subsequent sputum samples from 06/10/2024 was still consistent with pseudomonal growth. He is known to have COPD. He is known to have obstructive sleep apnea which is essentially severe with an AHI of 85. He is known to have PAD, hypertension degenerative arthritis and restless leg. His most recent echocardiogram from 06/10/2024 showed a left ventricular ejection fraction of 55 to 60%, moderate RV dilatation. RV pressures were essentially within normal limits. There was moderate aortic dilatation at the level of the sinuses measured to be at 39 mm. No altered mentation. No hemoptysis. No pleurisy. 08/17/2024, the patient is being seen for a follow-up. Remains on room air oxygen. Sputum sample has been collected and the culture still pending. The p atient remains on IV cefepime. Remains on Symbicort. Remains on DuoNeb the regiment [id number]. No reported chest pain for now. White cell count is down to 23, hemoglobin 14.7 and a platelet count is at 325. Troponins are negative. Procalcitonin level is at 0.09. Objective - Vital Signs Vital signs: Vital Signs Temp 97.9 F 08/17/24 07:53 Pulse 70 08/17/24 09:25 Resp 20 08/17/24 07:53 BP 137/79 08/17/24 07:53 Pulse Ox 97 08/17/24 09:04 FiO2 Intake & Output 08/16/24 08/17/24 08/17/24 18:59 06:59 18:59 Intake Total 550 Balance 550 Weight 104.326 kg 110.4 kg Intake: IV 10 Invasive Line 2 10 Oral 540 Other: Voiding Method Toilet Toilet # Voids 1 - Exam General appearance,, comfortable the patient is currently on room air oxygen Head exam was generally normal. There was no scleral icterus or corneal arcus. Mucous membranes were moist. Neck was supple and without jugular venous distension, thyromegaly, or carotid bruits. Carotids were easily palpable bilaterally. There was no adenopathy. Lung sounds are diminished and the patient is scattered rhonchi heard throughout the lung taylor bilaterally Cardiac exam revealed the PMI to be normally situated and sized. The rhythm was irregular and no extrasystoles were noted during several minutes of auscultation. The first and second heart sounds were normal and physiologic splitting of the second heart sound was noted. There were no murmurs, rubs, clicks, or gallops. Abdominal exam revealed normal bowel sounds. The abdomen was soft, non-tender, and without masses, organomegaly, or appreciable enlargement of the abdominal aorta. Examination of the extremities revealed easily palpable radial, femoral and pedal pulses. There was no cyanosis, clubbing or edema. Examination of the skin revealed no evidence of significant rashes, suspicious appearing nevi or other concerning lesions. Neurologically, the patient is awake and alert and the patient does not have any focal neurological deficit. Cranial nerves are essentially intact. - Labs CBC & Chem 7: 08/16/24 05:44 08/15/24 21:39 Assessment and Plan Plan: Right lung pneumonia with patchy areas of consolidation, likely multilobar. Rule out recurrent gram-negative pneumonia with Pseudomonas aeruginosa as the patient was infected with Pseudomonas back in February and May 2024. He required inpatient therapy with antibiotics. Acute on chronic shortness of breath, multifactorial, as the patient is known to have COPD with recurrent pneumonia and the patient was in A-fib RVR and currently is back to normal sinus rhythm. Paroxysmal atrial fibrillation. Currently on a combination of Cardizem, metoprolol and anticoagulation with Eliquis. LV function is preserved. COPD with recurrent respiratory infections bronchoscopy endobronchial lavage that was done on 03/12/2024 and the cultures was positive for Serratia and Pseudomonas and the patient had another hospitalization back in May 2024 and the sputum was still showing persistent pseudomonal growth. Obstructive sleep apnea with an AHI of 85 History of skin cancer, resected from the forehead PAD Hypertension RLS Degenerative arthritis Leukocytosis, improving Plan Patient currently on room air oxygen Continue DuoNeb nebulized treatments [id number] Continue IV cefepime 2 g every 12 hours Obtain sputum Gram stain and culture, sample collected and results are still pending Breztri will be replaced with Symbicort during his hospital stay Echocardiogram shows a preserved LV function The patient is on metoprolol and Cardizem The patient is on anticoagulation with Eliquis CPAP therapy is recommended the patient will be asked to bring his CPAP machine from home Cardiology consultation Follow-up chest x-ray with next 24 to 48 hours Will continue to follow
[2024-08-17] MEDS: LORATADINE 10 MG TAB PO SCH (23:23)
--- NOTE | 2024-08-18 10:49 | P.PN ---
Subjective Progress Note Date: 08/18/24 HISTORY OF PRESENT ILLNESS: This is a 78-year-old male with a past medical history significant for paro xysmal atrial fibrillation, COPD, and former nicotine dependence. Patient follows in the office with Dr. Duran. We have been asked to see the patient in consultation for A-fib with RVR. Patient examined at the bedside in the emergency room. Patient presented to the hospital for chief complaint of shortness of breath. He states he has been feeling short of breath for the past few days. He also reports having palpitations. He reports a cough with dark brown sputum production. He denies any fever or chills. Denies any nausea vomiting or diarrhea. Patient was found to be in A-fib with RVR. He was started on IV Cardizem. At the time of examination he remains in atrial fibrillation with a heart rate in the [id number]. It is noted that the patient had an event monitor in the office revealing a 22% burden of atrial fibrillation. Patient is supposed to be evaluated outpatient by Dr. Scruggs for possible ablation DIAGNOSTICS: - EKG reveals A-fib with RVR - Chest xray patchy opacities in right mid and lower lung concerning for infectious/inflammatory process. Probable mid left lower lung atelectasis - Laboratory data: WBC 23.1. Hemoglobin 14.7. Platelet count 325. Sodium 136. Potassium 4.4. BUN 20. Creatinine 0.69. Troponin negative x 3. proBNP 606. - Current home cardiac medications include Eliquis 5 mg twice a day, Cardizem 30 mg 4 times a day, metoprolol tartrate 50 mg twice a day - Most recent echocardiogram obtained in May 2024 revealed ejection fraction 55 to 60%, trace to mild TR -Patient underwent Lexiscan stress test on 06/20/2024 in the office which was negative for ischemia 08/17/2024 Patient examined this morning at the bedside. Patient denies chest pain or pressure. He reports improvement in his shortness of breath today. He continues to have a cough. Telemetry reveals atrial fibrillation with controlled ventricular rate in the 70s. He is maintained on antibiotics for his pneumonia. 08/18/24 Patient seen and examined. Patient states that he is feeling better. No chest pain no palpitations. Heart rate has been in the 70s. Blood pressure 142/85, pulse ox 92% on room air. Patient is maintained on Eliquis, oral Cardizem and Lopressor. PHYSICAL EXAM: VITAL SIGNS: Reviewed. GENERAL: Well-developed in no acute distress. HEENT: Head is normocephalic. Pupils are equal, round. Sclerae anicteric. Mucous membranes of the mouth are moist. Neck supple. No JVD or thyromegaly LUNGS: Respirations even and unlabored. Lungs with scattered rhonchi, right more than left HEART: Irregular rate and rhythm. S1 and S2 heard. ABDOMEN: Soft. Nondistended. Nontender. EXTREMITIES: Normal range of motion. No clubbing or cyanosis. Peripheral pulses intact. No lower extremity edema NEUROLOGIC: Awake and alert. Oriented x 3. ASSESSMENT: Shortness of breath Possible COPD exacerbation Right sided pneumonia Leukocytosis Paroxysmal atrial fibrillation with RVR 22% A-fib burden noted on recent event monitor Former nicotine dependence PLAN: No need to repeat echocardiogram as this was performed in May 2024 Continue current dose of Cardizem and metoprolol Eventual outpatient EP evaluation for possible A-fib ablation Patient is cleared for discharge from cardiology and may follow-up in the office in [address] Duran. Nurse practitioner note has been reviewed by physician. Signing provider agrees with the documented findings, assessment, and plan of care documented by EMERGENCY SERVICES PROFESSIONAL as a scribe. Objective - Vital Signs Vital signs: Vital Signs Temp 98.1 F 08/18/24 04:59 Pulse 87 08/18/24 08:10 Resp 18 08/18/24 04:59 BP 142/86 08/18/24 04:59 Pulse Ox 97 08/18/24 08:10 FiO2 Intake & Output 08/17/24 08/18/24 08/18/24 18:59 06:59 18:59 Intake Total 1090 Output Total 500 Balance 590 Weight 109.3 kg Intake: IV 10 Invasive Line 2 10 Oral 1080 Output: Urine 500 Other: Voiding Method Toilet Toilet # Voids 2 3 - Labs CBC & Chem 7: 08/16/24 05:44 08/15/24 21:39 Labs: Microbiology - Last 24 Hours (Table) 08/17/24 08:30 Gram Stain - Preliminary Sputum 08/15/24 23:44 Blood Culture - Preliminary Blood
--- NOTE | 2024-08-18 16:40 | P.PN ---
Subjective Progress Note Date: 08/18/24 Principal diagnosis: Acute right lung pneumonia most likely secondary to gram-negative/Pseudomonas unless proven otherwise. This is a pleasant 78-year-old male patient who is known to our service as the patient is known to have COPD and recurrent pneumonias. The patient came into the emergency department complaining of palpitations a few days duration the patient was found to be in atrial fibrillation. At the same time, the patient was having increased cough and congestion and worsening shortness of breath. Based on that, the patient was brought into the hospital for further evaluation and treatment and a pulmonary consultation was requested for an underlying pneumonia. The patient at this point in time is hemodynamically stable, in atrial fibrillation with a controlled rate. He has a previous history of paroxysmal atrial fibrillation and he has been evaluated by cardiology in the past regarding this issue. His white cell count is at 27.5 with a hemoglobin 1 5.7 and a platelet count of 314. Normal coagulation profile. Troponins are negative. proBNP level is not elevated. BUN is 20 with a creatinine 0.6 and a sodium level is at 136 and a potassium level of 4.4. Chest x-ray was done Emergency Department and the patient was found to have patchy opacity in the right mid and right lower lung consistent with an underlying pneumonia. He is currently on room air oxygen with a pulse ox of 95%. Noted the patient was in the hospital back in May 2024. At that time, he was treated for COPD exacerbation and atrial fibrillation with RVR. Noted the patient has had previous respiratory and infectious with gram-negative bacteria in the bronchoscopy and the bronchoalveolar lavage that was obtained back in 03/12/2024 showed infection with Serratia and Pseudomonas and the patient was treated accordingly. Subsequent sputum samples from 06/10/2024 was still consistent with pseudomonal growth. He is known to have COPD. He is known to have obstructive sleep apnea which is essentially severe with an AHI of 85. He is known to have PAD, hypertension degenerative arthritis and restless leg. His most recent echocardiogram from 06/10/2024 showed a left ventricular ejection fraction of 55 to 60%, moderate RV dilatation. RV pressures were essentially within normal limits. There was moderate aortic dilatation at the level of the sinuses measured to be at 39 mm. No altered mentation. No hemoptysis. No pleurisy. 08/17/2024, the patient is being seen for a follow-up. Remains on room air oxygen. Sputum sample has been collected and the culture still pending. The patient remains on IV cefepime. Remains on Symbicort. Remains on DuoNeb the regiment [id number]. No reported chest pain for now. White cell count is down to 23, hemoglobin 14.7 and a platelet count is at 325. Troponins are negative. Procalcitonin level is at 0.09. Seen today on 08/18/2024, patient is doing better, remains on antibiotics in the form of cefepime remains on bronchodilators, doing much better, breathing a lot easier, hardly any pulmonary symptoms today except for occasional cough and wheezing. Patient is on room air, O2 sats of 96% chest x-ray on admission is highly suggestive of multilobar pneumonia involving the right lung. Sputum cultures are pending patient remains on cefepime in the meantime continues to have leukocytosis, procalcitonin level is 0.09 it was 0.14 on admission Objective - Vital Signs Vital signs: Vital Signs Temp 97.5 F L 08/18/24 08:00 Pulse 73 08/18/24 15:34 Resp 18 08/18/24 14:00 BP 129/68 08/18/24 12:00 Pulse Ox 96 08/18/24 12:00 FiO2 Intake & Output 08/17/24 08/18/24 08/18/24 18:59 06:59 18:59 Intake Total 1090 502 Output Total 500 Balance 590 502 Weight 109.3 kg Intake: IV 10 Invasive Line 2 10 Intake, IV Titration 100 Amount Cefepime 2 gm In Sodium 100 Chloride 0.9% 100 ml @ 25 mls/hr IVPB Q12HR [facility] Rx #:[id number] Oral 1080 402 Output: Urine 500 Other: Voiding Method Toilet Toilet Toilet # Voids 2 3 - Exam VITAL SIGNS: Reviewed. GENERAL: Revealed 78-year-old white male in no distress Head: Atraumatic normocephalic HEENT: Pupils are equal, round. Sclerae anicteric. Mucous membranes of the mouth are moist. Neck supple. No JVD or thyromegaly LUNGS: Respirations even and unlabored. Lungs with scattered rhonchi, right more than left HEART: Irregular rate and rhythm. S1 and S2 heard. ABDOMEN: Soft. Nondistended. Nontender. EXTREMITIES: Normal range of motion. No clubbing or cyanosis. Peripheral pulses intact. No lower extremity edema NEUROLOGIC: Alert oriented x 3 no gross focal neurologic deficit Psychiatric: Normal mood affect and no mental status examination - Labs CBC & Chem 7: 08/16/24 05:44 08/15/24 21:39 Labs: Microbiology - Last 24 Hours (Table) 08/17/24 08:30 Gram Stain - Preliminary Sputum Sputum Culture - Preliminary 08/15/24 23:44 Blood Culture - Preliminary Blood Assessment and Plan Assessment: Impression: Right lung pneumonia with patchy areas of consolidation, likely multilobar. Possibly Pseudomonas, cultures are pending Acute on chronic shortness of breath, multifactorial, as the patient is known to have COPD with recurrent pneumonia and the patient was in A-fib RVR and currently is back to normal sinus rhythm. Paroxysmal atrial fibrillation. Currently on a combination of Cardizem, metoprolol and anticoagulation with Eliquis. LV function is preserved. COPD with recurrent respiratory infections bronchoscopy endobronchial lavage that was done on 03/12/2024 and the cultures was positive for Serratia and Pseudomonas and the patient had another hospitalization back in May 2024 and the sputum was still showing persistent pseudomonal growth. Obstructive sleep apnea with an AHI of 85 History of skin cancer, resected from the forehead PAD Hypertension RLS Degenerative arthritis Leukocytosis, improving Recommendation: Continue present treatment plan including bronchodilators and cefepime Awaiting final report on sputum cultures showing gram-negative bacilli Continue metoprolol and Cardizem for atrial fibrillation Patient to use his own CPAP and to bring from home Repeat chest x-ray in next 24 hours Will continue to follow Time with Patient: Less than 30
--- NOTE | 2024-08-18 19:56 | P.PN ---
Progress Note - Text Progress Note Date: 08/18/24 This is a pleasant 78 years old male with past medical history of multiple problems including A-fib. Presents because of palpitation of 1 to 2 days duration He denies chest pain or dyspnea Patient is coughing a lot. No significant phlegm However patient feels very weak and lethargic for about 1 week He denies abdominal pain vomiting or diarrhea. No urinary symptoms. He states he quit smoking in . No alcohol or illicit drugs. Is afebrile and vitals unremarkable including CBC, BMP, LFT, INR. Troponin x 3 are negative. EKG showing A-fib with RVR and 121. Chest x-ray showing patchy opacity in the right mid and lower lung. Currently his heart rate is 126 and blood pressure 158/86 His leukocytosis is chronic 10-18,000 but is worse during this admission up to 27,000 and 23,000 August 18, 2024: I assumed care of the patient today. Patient had a good breakfast today. Patient had a cough with no sputum production. Remains in atrial fibrillation though rate is controlled. Patient been up to the bathroom. On IV cefepime. 97% room air. From a cardiac standpoint patient is stable. . Discussed with the at the bedside. Increase activity Active Medications Hydrocodone Bitart/Acetaminophen (Hydrocodone/Apap 7.5-325mg 1 Each Tab) 1 each PO Q6HR [facility] Last Admin: 08/18/24 17:37 Dose: 1 each Apixaban (Apixaban 5 Mg Tab) 5 mg PO BID [facility] [place]; Protocol Last Admin: 08/18/24 09:13 Dose: 5 mg Budesonide/Formoterol Fumarate (Symbicort 160-4.5 Mcg Inhaler) 2 puff INHALATION RT-BID [facility] [place] Last Admin: 08/18/24 08:10 Dose: 2 puff Diltiazem HCl (Diltiazem Oral 60 Mg Tab) 60 mg PO TID [facility] [place] Last Admin: 08/18/24 17:37 Dose: 60 mg Famotidine (Famotidine 20 Mg/2 Ml Vial) 20 mg IV Q12HR [facility] [place] Last Admin: 08/18/24 09:13 Dose: 20 mg Cefepime HCl 2 gm/ Sodium (Chloride) 100 mls @ 25 mls/hr IVPB Q12HR [facility] [place]; Protocol Last Admin: 08/18/24 09:12 Dose: 25 mls/hr Ipratropium Hector (Ipratropium 0.5 Mg/2.5 Ml Nebu) 0.5 mg INHALATION RT-QID [facility] [place] Last Admin: 08/18/24 15:22 Dose: 0.5 mg Loratadine (Loratadine 10 Mg Tab) 10 mg PO DAILY [facility] [place] Last Admin: 08/18/24 09:13 Dose: 10 mg Metoprolol Tartrate (Metoprolol Tartrate 50 Mg Tab) 75 mg PO BID [facility] [place] Last Admin: 08/18/24 09:13 Dose: 75 mg Miscellaneous Information ([facility]neumonia [facility] 1 each PO ONCE PRN PRN Reason: Per Protocol Morphine Sulfate (Morphine Sulfate Er 15 Mg Tablet) 15 mg PO BID [facility] [place]; Protocol Last Admin: 08/18/24 09:17 Dose: 15 mg Nitroglycerin (Nitroglycerin Sl Tabs 0.4 Mg Tab) 0.4 mg SUBLINGUAL Q5M PRN PRN Reason: Chest Pain Promethazine HCl (Promethazine 25 Mg Tab) 12.5 mg PO Q6HR PRN PRN Reason: Nausea And Vomiting Last Admin: 08/16/24 13:27 Dose: 12.5 mg On examination: VITAL SIGNS: [Afebrile, 69, 18, 139 x 78, 94% room air] GENERAL APPEARANCE: BMI 30.9, up in a chair HEENT: Normal external appearance of nose and ear. Oral cavity normal EYES: Pupils equal. Conjunctiva normal. NECK: JVD not raised. Mass not palpable. RESPIRATORY: Respiratory effort increased. Decreased breath sounds n. CARDIOVASCULAR: First and second sounds normal. No edema. ABDOMEN: Soft. Liver and spleen not palpable. No tenderness. No mass palpable. PSYCHIATRY: Answering simple questions. Mood affect normal INVESTIGATIONS, reviewed in the clinical context: August 16: White count 23.1 hemoglobin 14.7 platelets 325 Troponin I x 3 less than 0.012 proBNP 606 Procalcitonin 0.14, 0.09 EKG: A-fib with rapid ventricular rate Chest x-ray film personally reviewed by me [August 16]-right sided infiltrate Assessment plan: -Right mid and lower lobe pneumonia, suspect gram-negative IV cefepime Sputum and blood culture pending -Chronic A-fib and RVR, on presentation. Heart rate better controlled Lopressor 75 mg twice daily. Cardizem 60 mg 3 times daily [facility] Cardiology following -COPD Symbicort 09/20.51 puff twice daily. Atrovent 4 times daily -Obesity BMI 30.9 Weight loss measures -Essential hypertension Lopressor. Cardizem. -Primary osteoarthritis, with chronic pain Chronically on MS Contin and [place]eral -Obstructive sleep apnea CPAP as before -Full code Increase activity. Continue current medication treatment plan. Repeat chest x- ray in the morning. Discussed with . Possible discharge tomorrow. Past Medical History Past Medical History: Atrial Fibrillation, Cancer, COPD, Hypertension, Osteoarthritis (OA), Pneumonia, Sleep Apnea/CPAP/BIPAP Additional Past Medical History / Comment(s): Recent dizziness and SOB. Hx tracheobronchitis. No device used for Sleep Apnea. Degenerative disc disease, arthritis in multiple joints, RLS. Hx skin cancer. Hx A-Fib in 2021, no trouble since. Circulation issues in feet. History of Any Multi-Drug Resistant Organisms: None Reported Past Surgical History: Hernia Repair, Orthopedic Surgery Additional Past Surgical History / Comment(s): Cervical disc removed, cyst removed from tailbone, bronchoscopy/BAL, UVPPP, right inguinal hernia repair, skin cancer removal, colonoscopy. Past Anesthesia/Blood Transfusion Reactions: Previous Problems w/ Anesthesia Additional Past Anesthesia/Blood Transfusion Reaction / Comment(s): "Blood pressure dropped." Past Psychological History: Depression Smoking Status: Former smoker Past Alcohol Use History: None Reported Past Drug Use History: None Reported - Past Family History Mother Family Medical History: Cancer Additional Family Medical History / Comment(s): Lung cancer. Father Additional Family Medical History / Comment(s): Heart disease.
[2024-08-19 08:00] VITALS: RESP 18; TEMP 98.3
--- NOTE | 2024-08-19 08:53 | XR ---
EXAMINATION TYPE: XR chest 2V DATE OF EXAM: 08/19/2024 7:46 AM COMPARISON: Chest radiographs from 08/15/2024, 06/09/2024 CLINICAL INDICATION: Male, 78 years old with history of Follow-up pneumonia; [facility] TECHNIQUE: XR chest 2V Frontal and lateral views of the chest. FINDINGS: Lungs/Pleura: Similar multifocal airspace opacities in the right lung. No evidence of pneumothorax or pleural effusion. Pulmonary vascularity: Unremarkable. Heart/mediastinum: Cardiomediastinal silhouette is unremarkable. Musculoskeletal: No acute osseous pathology. Left probable calcified joint body. IMPRESSION: Similar multifocal airspace opacities. [facility], , 08/19/2024 8:50 AM
[2024-08-19 09:10] VITALS: BP 128/65
[2024-08-19 09:23] VITALS: PULSE 72
--- NOTE | 2024-08-19 16:03 | P.DS ---
Providers Date of admission: 08/16/24 02:50 Expected date of discharge: 08/19/24 Attending physician: Saurav Teixeira Consults: 08/16/24 02:50 Consult Physician Urgent Consulting Provider: Elmo Betancourt Consult Reason/Comments: Atrial Fibrillation with rapid ventricular rate Do you want consulting provider notified?: Yes 08/16/24 09:18 Consult Physician Routine Consulting Provider: Victorino Underwood Consult Reason/Comments: copd, pneumonia Do you want consulting provider notified?: Yes Primary care physician: [facility] Course: This is a pleasant 78 years old male with past medical history of multiple problems including A-fib. Presents because of palpitation of 1 to 2 days duration He denies chest pain or dyspnea Patient is coughing a lot. No significant phlegm However patient feels very weak and lethargic for about 1 week He denies abdominal pain vomiting or diarrhea. No urinary symptoms. He states he quit smoking in . No alcohol or illicit drugs. Is afebrile and vitals unremarkable including CBC, BMP, LFT, INR. Troponin x 3 are negative. EKG showing A-fib with RVR and 121. Chest x-ray showing patchy opacity in the right mid and lower lung. Currently his heart rate is 126 and blood pressure 158/86 His leukocytosis is chronic 10-18,000 but is worse during this admission up to 27,000 and 23,000 August 18, 2024: I assumed care of the patient today. Patient had a good breakfast today. Patient had a cough with no sputum production. Remains in atrial fibrillation though rate is controlled. Patient been up to the bathroom. On IV cefepime. 97% room air. From a cardiac standpoint patient is stable. . Discussed with the at the bedside. Increase activity August 19: Doing doing well. Up and about. Respiratory symptoms greatly improved. Will complete 5 more days of Ceftin. A-fib remains controlled. Discussed with patient and . Questions answered. Follow-up with Dr. Duran outpatient Active Medications Hydrocodone Bitart/Acetaminophen (Hydrocodone/Apap 7.5-325mg 1 Each Tab) 1 each PO Q6HR BALTAZAR Last Admin: 08/18/24 17:37 Dose: 1 each Apixaban (Apixaban 5 Mg Tab) 5 mg PO BID BALTAZAR; Protocol Last Admin: 08/18/24 09:13 Dose: 5 mg Budesonide/Formoterol Fumarate (Symbicort 160-4.5 Mcg Inhaler) 2 puff INHALATION RT-BID [facility] Last Admin: 08/18/24 08:10 Dose: 2 puff Diltiazem HCl (Diltiazem Oral 60 Mg Tab) 60 mg PO TID [facility] Last Admin: 08/18/24 17:37 Dose: 60 mg Famotidine (Famotidine 20 Mg/2 Ml Vial) 20 mg IV Q12HR [facility] Last Admin: 08/18/24 09:13 Dose: 20 mg Cefepime HCl 2 gm/ Sodium (Chloride) 100 mls @ 25 mls/hr IVPB Q12HR [facility]; Protocol Last Admin: 08/18/24 09:12 Dose: 25 mls/hr Ipratropium [place] (Ipratropium 0.5 Mg/2.5 Ml Nebu) 0.5 mg INHALATION RT-QID [facility] Last Admin: 08/18/24 15:22 Dose: 0.5 mg Loratadine (Loratadine 10 Mg Tab) 10 mg PO DAILY [facility] Last Admin: 08/18/24 09:13 Dose: 10 mg Metoprolol Tartrate (Metoprolol Tartrate 50 Mg Tab) 75 mg PO BID [facility] Last Admin: 08/18/24 09:13 Dose: 75 mg Miscellaneous Information (Pneumonia Protocol Utilized 1 Each Misc) 1 each PO ONCE PRN PRN Reason: Per Protocol Morphine Sulfate (Morphine Sulfate Er 15 Mg Tablet) 15 mg PO BID [facility]; Protocol Last Admin: 08/18/24 09:17 Dose: 15 mg Nitroglycerin (Nitroglycerin Sl Tabs 0.4 Mg Tab) 0.4 mg SUBLINGUAL Q5M PRN PRN Reason: Chest Pain Promethazine HCl (Promethazine 25 Mg Tab) 12.5 mg PO Q6HR PRN PRN Reason: Nausea And Vomiting Last Admin: 08/16/24 13:27 Dose: 12.5 mg On examination: VITAL SIGNS: Afebrile, 71, 18, 120 x 65, 92% GENERAL APPEARANCE: BMI 30.9, comfortable HEENT: Normal external appearance of nose and ear. Oral cavity normal EYES: Pupils equal. Conjunctiva normal. NECK: JVD not raised. Mass not palpable. RESPIRATORY: Respiratory effort normal decreased breath sounds n. CARDIOVASCULAR: First and second sounds normal. No edema. ABDOMEN: Soft. Liver and spleen not palpable. No tenderness. No mass palpable. PSYCHIATRY: Answering simple questions. Mood affect normal INVESTIGATIONS, reviewed in the clinical context: August 16: White count 23.1 hemoglobin 14.7 platelets 325 Troponin I x 3 less than 0.012 proBNP 606 Procalcitonin 0.14, 0.09 EKG: A-fib with rapid ventricular rate Chest x-ray film personally reviewed by me [August 16]-right sided infiltrate Assessment plan: -Right mid and lower lobe pneumonia, suspect gram-negative: Clinically much improved IV cefepime Ceftin 5 mg twice daily for 5 days -Chronic A-fib and RVR, on presentation. Heart rate better controlled Lopressor 50 mg 3 times daily. Cardizem 60 mg 3 times daily Eliquis Cardiology following -COPD Symbicort 09/20.51 puff twice daily. Atrovent 4 times daily -Obesity BMI 30.9 Weight loss measures -Essential hypertension Lopressor. Cardizem. -Primary osteoarthritis, with chronic pain Chronically on MS Contin and [place] -Obstructive sleep apnea CPAP as before -Full code I disposition: Home Past Medical History Past Medical History: Atrial Fibrillation, Cancer, COPD, Hypertension, Osteoarthritis (OA), Pneumonia, Sleep Apnea/CPAP/BIPAP Additional Past Medical History / Comment(s): Recent dizziness and SOB. Hx tracheobronchitis. No device used for Sleep Apnea. Degenerative disc disease, arthritis in multiple joints, RLS. Hx skin cancer. Hx A-Fib in 2021, no trouble since. Circulation issues in feet. History of Any Multi-Drug Resistant Organisms: None Reported Past Surgical History: Hernia Repair, Orthopedic Surgery Additional Past Surgical History / Comment(s): Cervical disc removed, cyst removed from tailbone, bronchoscopy/BAL, UVPPP, right inguinal hernia repair, skin cancer removal, colonoscopy. Past Anesthesia/Blood Transfusion Reactions: Previous Problems w/ Anesthesia Additional Past Anesthesia/Blood Transfusion Reaction / Comment(s): "Blood pressure dropped." Past Psychological History: Depression Smoking Status: Former smoker Past Alcohol Use History: None Reported Past Drug Use History: None Reported - Past Family History Mother Family Medical History: Cancer Additional Family Medical History / Comment(s): Lung cancer. Father Additional Family Medical History / Comment(s): Heart disease. Plan - Discharge Summary Discharge Rx Participant: No New Discharge Prescriptions: New cefuroxime axetiL [Ceftin] 500 mg PO BID #10 tab Diltiazem Oral [Cardizem*] 60 mg PO TID #90 tab Continue Morphine Sulfate ER [Ms Contin] 15 mg PO BID Ipratropium-Albuterol Nebulize [Duoneb 0.5 mg-3 mg/3 ml Soln] 3 ml INHALATION RT-DAILY HYDROcodone/APAP 7.5-325MG [[place] 7.5-325] 1 tab PO Q6HR Budesonide/Glycopyr/Formoterol [Breztri Aerosphere Inhaler] 2 puff INHALATION RT-BID Apixaban [Eliquis] 5 mg PO BID #60 tab QUEtiapine [SEROquel] 25 mg PO BID Changed Metoprolol Tartrate [Lopressor] 50 mg PO TID #90 tab Discontinued Diltiazem Oral [Cardizem*] 30 mg PO QID #120 tab Discharge Medication List Morphine Sulfate ER [Ms Contin] 15 mg PO BID 03/31/19 [History] Budesonide/Glycopyr/Formoterol [Breztri Aerosphere Inhaler] 2 puff INHALATION RT-BID 03/10/24 [History] Ipratropium-Albuterol Nebulize [Duoneb 0.5 mg-3 mg/3 ml Soln] 3 ml INHALATION RT-DAILY 03/10/24 [History] HYDROcodone/APAP 7.5-325MG [[place] 7.5-325] 1 tab PO Q6HR 06/09/24 [History] Apixaban [Eliquis] 5 mg PO BID #60 tab 06/12/24 [Rx] QUEtiapine [SEROquel] 25 mg PO BID 08/16/24 [History] Diltiazem Oral [Cardizem*] 60 mg PO TID #90 tab 08/19/24 [Rx] Metoprolol Tartrate [Lopressor] 50 mg PO TID #90 tab 08/19/24 [Rx] cefuroxime axetiL [Ceftin] 500 mg PO BID #10 tab 08/19/24 [Rx] Follow up Appointment(s)/Referral(s): Marisol Duran MD [STAFF PHYSICIAN] - 1 Week (Office staff with call patient with an appointment date and time) Aly Sultana DO [Primary Care Provider] - 1-2 days (Office staff with contact patient with appointment date and time) Patient Instructions/Handouts: A-fib (Atrial Fibrillation) (DC) Discharge Disposition: HOME WITH HOME HEALTH SERVICES
== END 2024-08-19 11:40 | disposition home health service (06) | DRG 178 ==
LOC: EC 21:19 → 3SCARD 08-16 02:50
PROVIDERS: ADMIT Hospitalist; ATTEND Hospitalist
DX: J15.1 Pneumonia due to Pseudomonas (principal); J44.0 Chronic obstructive pulmonary disease with (acute) lower respiratory infection; I77.819 Aortic ectasia, unspecified site; I73.9 Peripheral vascular disease, unspecified; I48.0 Paroxysmal atrial fibrillation; G25.81 Restless legs syndrome; I11.9 Hypertensive heart disease without heart failure; E66.9 Obesity, unspecified; Z68.30 Body mass index [BMI] 30.0-30.9, adult; M19.91 Primary osteoarthritis, unspecified site; G89.29 Other chronic pain; G47.33 Obstructive sleep apnea (adult) (pediatric); I10 Essential (primary) hypertension; M19.90 Unspecified osteoarthritis, unspecified site; Z79.01 Long term (current) use of anticoagulants; Z87.01 Personal history of pneumonia (recurrent); Z86.19 Personal history of other infectious and parasitic diseases; Z85.828 Personal history of other malignant neoplasm of skin; Z87.891 Personal history of nicotine dependence; Z79.51 Long term (current) use of inhaled steroids; Z79.899 Other long term (current) drug therapy; Z79.891 Long term (current) use of opiate analgesic
CPT/HCPCS: 36415; 71045; 71046; 80053; 80061; 83735; 83880; 84145; 84484; 85025; 85610; 85730; 87040; 87070; 87077; 87186; 87205; 93005; 94640; 94760; 96365; 96366; 96368; 96375; 99291

== ENCOUNTER 2024-10-05 16:09 | Observation (INO) | payer MEDICARE ==
[2024-10-05 16:14] VITALS: RESP 18
--- NOTE | 2024-10-05 16:23 | ED ---
Arrhythmia/Palpitations HPI - General Chief Complaint: Arrhythmia/Palpitations Stated Complaint: Afib Time Seen by Provider: 10/05/24 16:14 Source: patient, RN notes reviewed, old records reviewed Mode of arrival: ambulatory Limitations: no limitations - History of Present Illness Initial Comments: This is a 79-year-old male with history of atrial fibrillation scheduled for cardiac ablation taking medication as appropriate including blood thinners. P atient presents with palpitations shortness of breath cough congestion no fevers. Taking medications as prescribed patient has no recent travel history or sick contacts, complaining of fluttering and chest pain occasional, mainly shortness of breath MD Complaint: rapid heart beat, "heart racing", irregular heart beat, atrial fibrillation -: days(s) Arrhythmia History: atrial fibrillation Associated Symptoms: chest pain, shortness of breath, nausea/vomiting Treatments Prior to Arrival: calcium channel valente - Related Data Home Medications Medication Instructions Recorded Confirmed Morphine Sulfate ER [Ms Contin] 15 mg PO BID 03/31/19 10/05/24 HYDROcodone/APAP 7.5-325MG [[place] 1 tab PO Q6HR 06/09/24 10/05/24 7.5-325] QUEtiapine [SEROquel] 25 mg PO DAILY 08/16/24 10/05/24 Diltiazem Oral [Cardizem Oral] 30 mg PO TID 10/05/24 10/05/24 QUEtiapine [SEROquel] 50 mg PO HS 10/05/24 10/05/24 Previous Rx's Medication Instructions Recorded Apixaban [Eliquis] 5 mg PO BID #60 tab 06/12/24 Metoprolol Tartrate [Lopressor] 50 mg PO TID #90 tab 08/19/24 Allergies Allergy/AdvReac Type Severity Reaction Status Date / Time No Known Allergies Allergy Verified 10/05/24 17:34 Review of Systems ROS Statement: Those systems with pertinent positive or pertinent negative responses have been documented in the HPI. ROS Other: All systems not noted in ROS Statement are negative. Past Medical History Past Medical History: Atrial Fibrillation, Cancer, COPD, Hypertension, Osteoarthritis (OA), Pneumonia, Sleep Apnea/CPAP/BIPAP Additional Past Medical History / Comment(s): Recent dizziness and SOB. Hx tracheobronchitis. No device used for Sleep Apnea. Degenerative disc disease, arthritis in multiple joints, RLS. Hx skin cancer. Hx A-Fib in 2021, no trouble since. Circulation issues in feet. History of Any Multi-Drug Resistant Organisms: None Reported Past Surgical History: Hernia Repair, Orthopedic Surgery Additional Past Surgical History / Comment(s): Cervical disc removed, cyst removed from tailbone, bronchoscopy/BAL, UVPPP, right inguinal hernia repair, skin cancer removal, colonoscopy. Past Anesthesia/Blood Transfusion Reactions: Previous Problems w/ Anesthesia Additional Past Anesthesia/Blood Transfusion Reaction / Comment(s): "Blood pressure dropped." Past Psychological History: Depression Smoking Status: Former smoker Past Alcohol Use History: None Reported Past Drug Use History: None Reported - Past Family History Mother Family Medical History: Cancer Additional Family Medical History / Comment(s): Lung cancer. Father Additional Family Medical History / Comment(s): Heart disease. General Exam Limitations: no limitations General appearance: alert, in no apparent distress, anxious Head exam: Present: atraumatic, normocephalic, normal inspection Eye exam: Present: normal appearance, PERRL, EOMI. Absent: scleral icterus, conjunctival injection, periorbital swelling ENT exam: Present: normal exam, mucous membranes moist Neck exam: Present: normal inspection. Absent: tenderness, meningismus, lymphadenopathy Respiratory exam: Present: respiratory distress, wheezes, accessory muscle use, decreased breath sounds, prolonged expiratory. Absent: rales, rhonchi, stridor Cardiovascular Exam: Present: regular rate, normal rhythm, normal heart sounds. Absent: systolic murmur, diastolic murmur, rubs, gallop, clicks GI/Abdominal exam: Present: soft, normal bowel sounds. Absent: distended, tenderness, guarding, rebound, rigid Extremities exam: Present: normal inspection, full ROM, normal capillary refill. Absent: tenderness, pedal edema, joint swelling, calf tenderness Back exam: Present: normal inspection Neurological exam: Present: alert, oriented X3, CN II-XII intact Psychiatric exam: Present: normal affect, normal mood Skin exam: Present: warm, dry, intact, normal color. Absent: rash Course Vital Signs 10/05/24 10/05/24 10/05/24 16:11 17:30 17:43 Temperature 97.4 F L Pulse Rate 66 86 90 Respiratory 18 Rate Blood Pressure 177/92 O2 Sat by Pulse 94 L Oximetry 0110/05/24 10/05/24 20:06 21:57 22:03 Temperature Pulse Rate 92 98 98 Respiratory 18 Rate Blood Pressure 155/92 O2 Sat by Pulse 95 Oximetry 10/05/24 23:23 Temperature 98.4 F Pulse Rate 92 Respiratory 18 Rate Blood Pressure O2 Sat by Pulse 98 Oximetry - Reevaluation(s) Reevaluation #1: 10/05/24 17:20 Medical records reviewed Reevaluation #2: 10/05/24 18:14 Patient showing improvement in heart rate and breathing with breathing treatments and medication Reevaluation #3: 10/05/24 18:14 Informed of results questions answered does not feel comfortable with discharge Reevaluation #4: Was pt. sent in by a medical professional or institution ([employer], [employer], urgent care, hospital, or assisted...) When possible be specific @ -no Did you speak to anyone other than the patient for history (EMS, parent, family, police, friend...)? What history was obtained from this source @ -no Did you review nursing and triage notes (agree or disagree)? Why? @ -agree Are old charts reviewed (outside hosp., previous admission, EMS record, old EKG, old radiological studies, urgent care reports/EKG's, assisted records)? Report findings @ -yes Differential Diagnosis (chest pain, altered mental status, abdominal pain women, abdominal pain men, vaginal bleeding, weakness, fever, dyspnea, syncope, headache, dizziness, GI bleed, back pain, seizure, CVA, palpatations, mental health, musculoskeletal)? @ -prior EKG interpreted by me (3pts min.). @ -yes X-rays interpreted by me (1pt min.). @ -yes negative for acute disease CT interpreted by me (1pt min.). @ -no U/S interpreted by me (1pt. min.). @ -no What testing was considered but not performed or refused? (CT, X-rays, U/S, labs)? Why? @ -none What meds were considered but not given or refused? Why? @ -none Did you discuss the management of the patient with other professionals (jairo regalado i.e. [employer], [employer], lab, RT, psych nurse, social welfare administrator, tire shop mechanic, teacher, military police officer, case coordinator)? Give summary @ -no Was smoking cessation discussed for >3mins.? @ -no Was critical care preformed (if so, how long)? @ -yes31 Were there social determinants of health that impacted care today? How? (Homelessness, low income, unemployed, alcoholism, drug addiction, transportation, low edu. Level, literacy, decrease access to med. care, alf, rehab)? @ -none Was there de-escalation of care discussed even if they declined (Discuss DNR or withdrawal of care, Hospice)? DNR status @ -no What co-morbidities impacted this encounter? (DM, HTN, Smoking, COPD, CAD, Cancer, CVA, ARF, Chemo, Hep., AIDS, mental health diagnosis, sleep apnea, morbid obesity)? @ -none Was patient admitted / discharged? Hospital course, mention meds given and route, prescriptions, significant lab abnormalities, going to OR and other pertinent info. @ - 79 male to ER for evaluation of shortness of breath palpitations weakness A-fib with RVR found here in the ER history of, patient heart rate is controlled still feels weak and palpitations, occasional chest pain. Patient also has underlying COPD with difficulty breathing Admitted Undiagnosed new problem with uncertain prognosis? @ -no Drug Therapy requiring intensive monitoring for toxicity (Heparin, Nitro, Insulin, Cardizem)? @ -no Were any procedures done? @ -no Diagnosis/symptom? @ -Weakness atrial fibrillation with RVR chest pain underlying COPD Acute, or Chronic, or Acute on Chronic? @ -Acute Uncomplicated (without systemic symptoms) or Complicated (systemic symptoms)? @ -Complicated Side effects of treatment? @ -no Exacerbation, Progression, or Severe Exacerbation? @ -exacerbation Poses a threat to life or bodily function? How? (Chest pain, [place], CA, pneumonia, PE, COPD, DKA, ARF, appy, cholecystitis, CVA, Diverticulitis, Homicidal, Suicidal, threat to staff... and all critical care pts) @ -yes chest pain and arrhythmia Reevaluation #5: Differential Palpitations Ventricular arrhythmias, atrial arrhythmias, myocardial infarction, anemia, thyrotoxicosis, electrolyte imbalance, hypokalemia, pulmonary embolism, pulmonary disease, drugs, alcohol, anxiety, stress.... This is not meant to be an all-inclusive list. - Consultations Consultation #1: spoke w [facility] who agrees to admit this patient EKG Findings - EKG Comments: EKG Findings:: EKG is a fib 98 QRS 88 QTc 386 - EKG Results: EKG: interpreted by SARAH Medical Decision Making - Medical Decision Making 79 male to ER for evaluation of shortness of breath palpitations weakness A-fib with RVR found here in the ER history of, patient heart rate is controlled still feels weak and palpitations, occasional chest pain. Patient also has underly ing COPD with difficulty breathing - Lab Data Result diagrams: 10/05/24 16:37 10/05/24 16:37 Lab Results 10/05/24 10/05/24 10/05/24 Range/Units 16:37 16:37 16:37 WBC 9.0 (3.8-10.6) k/uL RBC 4.08 L (4.30-5.90) m/uL Hgb 13.7 (13.0-17.5) gm/dL Hct 40.9 (39.0-53.0) % MCV 100.2 H (80.0-100.0) fL MCH 33.5 (25.0-35.0) pg MCHC 33.4 (31.0-37.0) g/dL RDW 13.5 (11.5-15.5) % Plt Count 250 (150-450) k/uL MPV 7.6 Neutrophils % 52 % Lymphocytes % 22 % Monocytes % 6 % Eosinophils % 17 % Basophils % 0 % Neutrophils # 4.7 (1.3-7.7) k/uL Lymphocytes # 2.0 (1.0-4.8) k/uL Monocytes # 0.6 (0-1.0) k/uL Eosinophils # 1.6 H (0-0.7) k/uL Basophils # 0.0 (0-0.2) k/uL PT 11.3 (10.0-12.5) sec INR 1.0 (<1.2) APTT 27.8 (22.0-30.0) sec Sodium 137 (137-145) mmol/L Potassium 4.3 (3.5-5.1) mmol/L Chloride 104 (98-107) mmol/L Carbon Dioxide 23 (22-30) mmol/L Anion Gap 10 mmol/L BUN 11 (9-20) mg/dL Creatinine 0.56 L (0.66-1.25) mg/dL Est GFR (CKD-EPI)AfAm >90 (>60 ml/min/1.73 sqM) Est GFR (CKD-EPI)NonAf >90 (>60 ml/min/1.73 sqM) Glucose 142 H (74-99) mg/dL Calcium 8.7 (8.4-10.2) mg/dL Phosphorus 3.7 (2.5-4.5) mg/dL Magnesium 2.1 (1.6-2.3) mg/dL Total Bilirubin 0.5 (0.2-1.3) mg/dL AST 37 (17-59) U/L ALT 16 (4-49) U/L Alkaline Phosphatase 62 (38-126) U/L Troponin I (0.000-0.034) ng/mL NT-Pro-B Natriuret Pep pg/mL Total Protein 6.8 (6.3-8.2) g/dL Albumin 4.0 (3.5-5.0) g/dL TSH 1.190 (0.465-4.680) mIU/L Influenza Type A (PCR) (Not Detectd) Influenza Type B (PCR) (Not Detectd) RSV (PCR) (Not Detectd) SARS-CoV-2 (PCR) (Not Detectd) 10/05/24 10/05/24 10/05/24 Range/Units 16:37 16:37 18:08 WBC (3.8-10.6) k/uL RBC (4.30-5.90) m/uL Hgb (13.0-17.5) gm/dL Hct (39.0-53.0) % MCV (80.0-100.0) fL MCH (25.0-35.0) pg MCHC (31.0-37.0) g/dL RDW (11.5-15.5) % Plt Count (150-450) k/uL MPV Neutrophils % % Lymphocytes % % Monocytes % % Eosinophils % % Basophils % % Neutrophils # (1.3-7.7) k/uL Lymphocytes # (1.0-4.8) k/uL Monocytes # (0-1.0) k/uL Eosinophils # (0-0.7) k/uL Basophils # (0-0.2) k/uL PT (10.0-12.5) sec INR (<1.2) APTT (22.0-30.0) sec Sodium (137-145) mmol/L Potassium (3.5-5.1) mmol/L Chloride (98-107) mmol/L Carbon Dioxide (22-30) mmol/L Anion Gap mmol/L BUN (9-20) mg/dL Creatinine (0.66-1.25) mg/dL Est GFR (CKD-EPI)AfAm (>60 ml/min/1.73 sqM) Est GFR (CKD-EPI)NonAf (>60 ml/min/1.73 sqM) Glucose (74-99) mg/dL Calcium (8.4-10.2) mg/dL Phosphorus (2.5-4.5) mg/dL Magnesium (1.6-2.3) mg/dL Total Bilirubin (0.2-1.3) mg/dL AST (17-59) U/L ALT (4-49) U/L Alkaline Phosphatase (38-126) U/L Troponin I <0.012 (0.000-0.034) ng/mL NT-Pro-B Natriuret Pep 302 pg/mL Total Protein (6.3-8.2) g/dL Albumin (3.5-5.0) g/dL TSH (0.465-4.680) mIU/L Influenza Type A (PCR) Not Detected (Not Detectd) Influenza Type B (PCR) Not Detected (Not Detectd) RSV (PCR) Not Detected (Not Detectd) SARS-CoV-2 (PCR) Not Detected (Not Detectd) - EKG Data -: EKG Interpreted by Me - Radiology Data Radiology results: report reviewed (Chest x-ray is negative for acute disease), image reviewed Critical Care Time Critical Care Time: Yes Total Critical Care Time: 31 Disposition Clinical Impression: Atrial fibrillation with RVR, Acute exacerbation of chronic obstructive pulmona ry disease, Tachycardia, Palpitations, Weakness Disposition: ADMITTED IP TO THIS HOSP Condition: Fair Is patient prescribed a controlled substance at d/c from ED?: No Time of Disposition: 18:00
[2024-10-05] MEDS: SODIUM CHLORIDE 0.9% 500 ML 500 ML IV STA (16:42)
[2024-10-05] MEDS: SODIUM CHLORIDE 0.9% 1,000 ML IV STA (16:42)
[2024-10-05 16:43] LABS: Basophils % (A) 0 %; Eosinophils # (A) 1.6 k/uL (0-0.7); Eosinophils % (A) 17 %; HCT 40.9 % (39.0-53.0); HGB 13.7 gm/dL (13.0-17.5); Lymphocytes % (A) 22 %; MCH 33.5 pg (25.0-35.0); MCHC 33.4 g/dL (31.0-37.0); MCV 100.2 fL (80.0-100.0); Mean Platelet Volume 7.6; Monocytes # (A) 0.6 k/uL (0-1.0); Monocytes % (A) 6 %; Neutrophils # (A) 4.7 k/uL (1.3-7.7); Neutrophils % (A) 52 %; Platelet Count 250 k/uL (150-450); RBC 4.08 m/uL (4.30-5.90); RDW 13.5 % (11.5-15.5)
[2024-10-05 16:54] LABS: Partial Thromboplastin Time 27.8 sec (22.0-30.0); Prothrombin Time 11.3 sec (10.0-12.5)
[2024-10-05] MEDS: DILTIAZEM 125 MG in SODIUM CHLORIDE 0.9% 100 ML IV SCH (16:58)
[2024-10-05] MEDS: DILTIAZEM DRIP BOLUS FROM BAG 1 MG SOLN IV ONE (17:00)
--- NOTE | 2024-10-05 17:10 | XR ---
EXAMINATION TYPE: XR chest 1V portable DATE OF EXAM: 10/05/2024 4:46 PM COMPARISON: Chest radiographs from 08/19/2024 CLINICAL INDICATION: Male, 79 years old with history of cp; [facility] TECHNIQUE: XR chest 1V portable Frontal view of the chest. FINDINGS: Lungs/Pleura: Prominent interstitial lung markings are seen scattered throughout the lungs with alea ening of the diaphragm and increased lucency of the lung apices. No evidence of focal consolidation, pneumothorax or pleural effusion. Pulmonary vascularity: Unremarkable. Heart/mediastinum: Cardiomediastinal silhouette is unremarkable. Musculoskeletal: No acute osseous pathology. Multiple right-sided remote rib fractures. IMPRESSION: Interstitial lung disease changes without acute pulmonary process. [facility], , 10/05/2024 5:08 PM
[2024-10-05] MEDS: IPRATROPIUM-ALBUTEROL 3 ML NEB INHALATION STA ×2 (17:30→21:56)
[2024-10-05] MEDS ORDERED: NALOXONE 0.4 MG/ML 1 ML VIAL IV PRN (18:12)
[2024-10-05] MEDS ORDERED: MORPHINE SULFATE 4 MG/ML SYRINGE IV PRN (18:12)
[2024-10-05] MEDS ORDERED: ONDANSETRON 4 MG/2 ML VIAL IVP PRN (18:12)
[2024-10-05 18:13] LABS: ALT 16 U/L (4-49); African American GFR (CKD) >90 (>60 ml/min/1.73 sqM); Anion Gap 10 mmol/L; Blood Urea Nitrogen 11 mg/dL (9-20); Calcium 8.7 mg/dL (8.4-10.2); Carbon Dioxide 23 mmol/L (22-30); Chloride 104 mmol/L (98-107); Glucose 142 mg/dL (74-99); Non-African American GFR(CKD) >90 (>60 ml/min/1.73 sqM); Phosphorus 3.7 mg/dL (2.5-4.5); Sodium 137 mmol/L (137-145); Total Bilirubin 0.5 mg/dL (0.2-1.3); Total Protein 6.8 g/dL (6.3-8.2)
[2024-10-05 18:21] LABS: AST 37 U/L (17-59); Alkaline Phosphatase 62 U/L (38-126); Magnesium 2.1 mg/dL (1.6-2.3); Potassium 4.3 mmol/L (3.5-5.1)
[2024-10-05] MEDS: SODIUM CHLORIDE 0.9% 1,000 ML IV SCH (18:28)
[2024-10-05] MEDS: MAGNESIUM SULFATE-D5W PMX 1 GM in DEXTROSE/WATER 1 100ML.BAG IVPB ONE (18:30)
[2024-10-05 19:06] LABS: Influenza A Not Detected (Not Detectd); Influenza B Not Detected (Not Detectd); RSV Not Detected (Not Detectd)
[2024-10-05 20:10] VITALS: BP 155/92
[2024-10-05 23:26] VITALS: PULSE 92; TEMP 98.4
[2024-10-06] MEDS ORDERED: PANTOPRAZOLE 40 MG/10 ML VIAL IV SCH (09:00)
== END 2024-10-05 23:39 | disposition left against medical advice (07) ==
LOC: EC 16:09 → 3SCARD 18:12
PROVIDERS: ADMIT Hospitalist; ATTEND Hospitalist
DX: I48.91 Unspecified atrial fibrillation (principal); J44.1 Chronic obstructive pulmonary disease with (acute) exacerbation; Z79.01 Long term (current) use of anticoagulants; Z79.891 Long term (current) use of opiate analgesic; Z79.899 Other long term (current) drug therapy; Z87.891 Personal history of nicotine dependence; Z53.29 Procedure and treatment not carried out because of patient's decision for other reasons
CPT/HCPCS: 96361; 96365; 96375; 99291; 36415; 94640; 93005; 83880; 80053; 83735; 84100; 84443; 84484; 85025; 85610; 85730; 87636; 71045; G0378; J3475

== ENCOUNTER 2025-04-02 10:17 | Day surgery (SDC) | payer MEDICARE ==
[~2025-04-02 10:17] MED LIST changes: -ATROPINE SULFATE 0.4 MG/ML 1 ML VIAL IM ONE; +DEXAMETHASONE SOD PHOSPHATE 4 MG/ML 1 ML VIAL IV ONE; -GLYCOPYRROLATE 0.2 MG/ML 2 ML VIAL ONE; -LIDOCAINE 1% INJ 10MG/ML (20 ML MDV) ONE; +ONDANSETRON 4 MG/2 ML VIAL IVP ONE; -PROPOFOL 10 MG/ML 20 ML VIAL IV ONE; +fentaNYL (PF) 50 MCG/ML 2 ML AMP IV PRN
[2025-04-02] MEDS: SODIUM CHLORIDE 0.9% 1,000 ML IV SCH (11:05)
[2025-04-02 11:07] LABS: Basophils # (A) 0.11 10*3/uL (0.00-0.10); Basophils % (A) 1.1 %; Eosinophils # (A) 0.91 10*3/uL (0.04-0.35); Eosinophils % (A) 9.0 %; HCT 46.1 % (39.6-50.0); HGB 15.8 g/dL (13.0-17.0); Lymphocytes # (A) 2.15 10*3/uL (0.90-5.00); Lymphocytes % (A) 21.2 %; MCH 34.0 pg (27.0-32.0); MCHC 34.3 g/dL (32.0-37.0); MCV 99.1 fL (80.0-97.0); Monocytes # (A) 0.72 10*3/uL (0.20-1.00); Monocytes % (A) 7.1 %; Neutrophils # (A) 6.21 10*3/uL (1.80-7.70); Neutrophils % (A) 61.3 %; Platelet Count 342 10*3/uL (140-440); RBC 4.65 10*6/uL (4.40-5.60); RDW 12.3 % (11.5-14.5); WBC 10.13 10*3/uL (4.50-10.00)
[2025-04-02 11:22] LABS: ALT 13 U/L (4-49); African American GFR (CKD) >90 (>60 ml/min/1.73 sqM); Albumin 4.2 g/dL (3.5-5.0); Anion Gap 10 mmol/L; Blood Urea Nitrogen 13 mg/dL (9-20); Calcium 9.3 mg/dL (8.4-10.2); Carbon Dioxide 26 mmol/L (22-30); Chloride 104 mmol/L (98-107); Glucose 128 mg/dL (74-99); Non-African American GFR(CKD) >90 (>60 ml/min/1.73 sqM); Sodium 140 mmol/L (137-145); Total Protein 7.1 g/dL (6.3-8.2)
[2025-04-02 11:30] LABS: AST 24 U/L (17-59); Potassium 4.8 mmol/L (3.5-5.1)
[2025-04-02 11:31] LABS: Alkaline Phosphatase 67 U/L (38-126)
[2025-04-02] MEDS: IV FLUID CONTINUATION 1,000 ML IV ONE (11:38)
[2025-04-02] MEDS ORDERED: ePHEDrine 50 MG/ML 1 ML VIAL ONE (11:40)
[2025-04-02] MEDS ORDERED: LIDOCAINE 1% INJ 10MG/ML (20 ML MDV) ONE (11:40)
[2025-04-02] MEDS ORDERED: HEPARIN SODIUM,PORCINE 5,000 UNIT/ML 1 ML VIAL ONE (11:40)
[2025-04-02] MEDS ORDERED: PROPOFOL 10 MG/ML 20 ML VIAL IV ONE (11:40)
[2025-04-02] MEDS ORDERED: fentaNYL (PF) 50 MCG/ML 2 ML AMP ONE (11:40)
[2025-04-02] MEDS ORDERED: PHENYLEPHRINE-0.9% NACL SYG 1,000 MCG/10 ML SYRINGE ONE (11:40)
[2025-04-02] MEDS ORDERED: HEPARIN SODIUM,PORCINE 10,000 UNIT/ML 1 ML VIAL ONE (11:40)
[2025-04-02] MEDS ORDERED: WATER FOR INJECTION, STERILE 10 ML VIAL IV ONE (11:40)
[2025-04-02] MEDS ORDERED: VASOPRESSIN 20 UNIT/ML 1 ML VIAL ONE (11:40)
[2025-04-02] MEDS ORDERED: SUCCINYLCHOLINE CHLORIDE 200 MG/10 ML VIAL IV ONE (11:40)
[2025-04-02] MEDS ORDERED: ALBUTEROL HFA INHALER INHALATION ONE (11:40)
[2025-04-02] MEDS: HEPARIN SOD,PORK IN 0.45% NACL 25,000 UNIT in 0.45% NACL 1 250ML.BAG IV ONE (12:00)
[2025-04-02] MEDS: LIDOCAINE 1% INJ 10MG/ML (20 ML MDV) SQ ONE (12:18)
[2025-04-02] MEDS: IOPAMIDOL-370 100ML BTL INJ ONE (14:12)
[2025-04-02] MEDS ORDERED: ACETAMINOPHEN IV (For NPO) 1,000 MG in EMPTY BAG 1 BAG IVPB ONE (14:28)
[2025-04-02] MEDS ORDERED: ACETAMINOPHEN TAB 325 MG TAB PO PRN (14:28)
--- NOTE | 2025-04-02 15:18 | P.HPCAR ---
History of Present Illness This is Dr. Scruggs dictating an H/P on this patient The patient was interviewed and examined IMPRESSION / ASSESSMENT: Paroxysmal atrial fibrillation, symptomatic Shortness of breath dizziness sweatiness during episodes of atrial fibrillation Normal stress test Increased BMI PLAN: Proceed with A-fib ablation Heparin dose calculated Under dropdead anticoagulation HPI Patient has had several episodes of atrial fibrillation with RVR. He is on oral Cardizem and beta-blockers. He gets dizzy lightheaded and short of breath during these episodes These episodes have continued even after resolution of pneumonitis Denies any fever chills cough expectoration Denies any chest discomfort dizziness lightheadedness or palpitations ROS: No fever chills or rigors, no cough, phlegm or expectoration, no nausea, vomiting or diarrhea, no hematuria, dysuria, no musculoskeletal complaints, no strokes or seizures, no skin lesions. EXAMINATION: 106/71 mmHg pulse rate 72 beats a minute afebrile patient is in atrial f ibrillation today irregular Breath sounds are reduced bilaterally Heart sounds no murmurs No lower extremity edema REVIEW OF LABS, ECG & MEDICAL DATA White count 10,000, hemoglobin 15.8 Sodium and potassium are normal Creatinine 0.6 AST ALT normal TSH 1.8 Physical Exam Vitals: Vital Signs Temp Pulse Pulse Resp BP BP BP 04/02/25 14:59 72 18 106/71 04/02/25 14:44 97 F L 71 16 113/82 04/02/25 11:05 98.6 F 108 H 16 168/112 166/105 Pulse Ox 04/02/25 14:59 100 04/02/25 14:44 98 04/02/25 11:05 94 L Intake and Output 04/02/25 04/02/25 04/02/25 06:59 14:59 22:59 Intake Total 980 Balance 980 Intake: IV 980 Other: Weight 108.5 kg Past Medical History Past Medical History: Atrial Fibrillation, Cancer, COPD, Hypertension, Osteoarthritis (OA), Pneumonia, Sleep Apnea/CPAP/BIPAP Additional Past Medical History / Comment(s): See Sheba's H&P; Recent dizziness and SOB. Hx tracheobronchitis. No device used for Sleep Apnea. Degenerative disc disease, arthritis in multiple joints, RLS. Hx skin cancer. Circulation issues in feet. History of Any Multi-Drug Resistant Organisms: None Reported Past Surgical History: Hernia Repair, Orthopedic Surgery Additional Past Surgical History / Comment(s): Cervical disc removed, cyst removed from tailbone, bronchoscopy/BAL, UVPPP, right inguinal hernia repair, skin cancer removal, colonoscopy. Tooth extraction one month ago. Past Anesthesia/Blood Transfusion Reactions: Previous Problems w/ Anesthesia Additional Past Anesthesia/Blood Transfusion Reaction / Comment(s): "Blood press ure dropped." Smoking Status: Former smoker - Past Family History Mother Family Medical History: Cancer Additional Family Medical History / Comment(s): Lung cancer. Father Additional Family Medical History / Comment(s): Heart disease. Physical Examination Vital Signs Temp Pulse Pulse Resp BP BP BP 04/02/25 14:59 72 18 106/71 04/02/25 14:44 97 F L 71 16 113/82 04/02/25 11:05 98.6 F 108 H 16 168/112 166/105 Pulse Ox 04/02/25 14:59 100 04/02/25 14:44 98 04/02/25 11:05 94 L Intake and Output 04/02/25 04/02/25 04/02/25 06:59 14:59 22:59 Intake Total 980 Balance 980 Intake: IV 980 Other: Weight 108.5 kg Results 04/02/25 10:50 04/02/25 10:50 Cardiac Enzymes 04/02/25 Range/Units 10:50 AST 24 (17-59) U/L CBC 04/02/25 Range/Units 10:50 WBC 10.13 H (4.50-10.00) 10*3/uL RBC 4.65 (4.40-5.60) 10*6/uL Hgb 15.8 (13.0-17.0) g/dL Hct 46.1 (39.6-50.0) % Plt Count 342 (140-440) 10*3/uL Comprehensive Metabolic Panel 04/02/25 Range/Units 10:50 Sodium 140 (137-145) mmol/L Potassium 4.8 (3.5-5.1) mmol/L Chloride 104 (98-107) mmol/L Carbon Dioxide 26 (22-30) mmol/L BUN 13 (9-20) mg/dL Creatinine 0.58 L (0.66-1.25) mg/dL Glucose 128 H (74-99) mg/dL Calcium 9.3 (8.4-10.2) mg/dL AST 24 (17-59) U/L ALT 13 (4-49) U/L Alkaline Phosphatase 67 (38-126) U/L Total Protein 7.1 (6.3-8.2) g/dL Albumin 4.2 (3.5-5.0) g/dL Current Medications Generic Name Dose Route Start Last Admin Trade Name Freq PRN Reason Stop Dose Admin Acetaminophen 650 mg 04/02/25 14:28 Acetaminophen Tab 325 Mg Tab PO 05/02/25 14:27 Q6HR PRN Mild Pain (Scale 1 to 3) Hydrocodone Bitart/Acetaminophen 1 each 04/02/25 18:00 Hydrocodone/Apap 7.5-325mg 1 Each Tab PO 05/02/25 17:59 Q6HR BALTAZAR Apixaban 5 mg 04/02/25 19:00 Apixaban 5 Mg Tab PO 05/02/25 18:59 BID BALTAZAR Protocol Fentanyl Citrate 50 mcg 04/02/25 07:00 Fentanyl (Pf) 50 Mcg/Ml 2 Ml Amp IV 04/02/25 23:00 Q3M PRN Phase I - Pain Control Sodium Chloride 1,000 mls @ 20 mls/hr 04/02/25 06:09 04/02/25 11:05 Saline 0.9% IV 05/02/25 06:08 20 mls/hr .Q24H BALTAZAR Administration Lactated Ringer's 1,000 mls @ 20 mls/hr 04/02/25 06:09 Lactated Ringers IV 05/02/25 06:08 .Q24H BALTAZAR Metoprolol Tartrate 50 mg 04/02/25 21:00 Metoprolol Tartrate 50 Mg Tab PO 05/02/25 20:59 BID BALTAZAR Sodium Chloride 12 ml 04/02/25 14:28 Sodium Chloride 0.9% Flush 10 Ml Syringe IV 05/02/25 14:27 Q12HR PRN Line Flush Trazodone HCl 100 mg 04/03/25 09:00 Trazodone Hcl 100 Mg Tab PO 05/03/25 08:59 DAILY BALTAZAR Intake and Output 04/02/25 04/02/25 04/02/25 06:59 14:59 22:59 Intake Total 980 Balance 980 Intake: IV 980 Other: Weight 108.5 kg Patient Weight 04/03/25 06:59 Weight 108.5 kg 04/02/25 10:50 04/02/25 10:50
[2025-04-02] MEDS: HYDROcodone/APAP 7.5-325MG 1 EACH TAB PO SCH (16:55)
[2025-04-02] MEDS: APIXABAN 5 MG TAB PO SCH (18:36)
[2025-04-02 18:43] VITALS: RESP 18; TEMP 97.7
--- NOTE | 2025-04-02 18:46 | P.EPPROC ---
- EP Procedure Note Electrophysiology Procedure Note: PROCEDURE A. fib ablation with entry-level PVI and left atrial septal ablation and ablation of the jp on the left side resulting in termination of atrial fibrillation DIAGNOSIS Persistent atrial fibrillation, symptomatic, refractory to therapy, symptomatic RESULT No left atrial appendage mass seen on intracardiac echo Successful A. fib ablation/pulmonary vein isolation of all veins using cryo- ablation Complete entrance block in all 4 veins confirmed No evidence for phrenic nerve injury Left atrial septal ablation, successful Ablation of the left pulmonary venous jp in addition to the PVI lesions. This resulted in termination of atrial fibrillation PROCEDURE DETAILS Written informed consent prior to procedure. Patient brought to the EP lab. General anesthesia given. Heparin administered. A city maintained above 300 seconds Both groins prepped and draped per protocol and venous sheaths placed. Esophagus intubated, circa catheter for temperature monitoring an endoscope for possible esophageal deflection. Phrenic nerve monitoring performed. Esophageal temperature monitoring performed. Esophageal deflection performed if circa catheter overlapping with the balloon or circa temperature less than 27.5°C Intracardiac echocardiography performed. Pericardium evaluated. Left atrial appendage evaluated. Left atrium evaluated along with pulmonary veins Transseptal catheterization performed under fluoroscopic guidance and intracardiac echo guidance Cryoablation sheath exchanged, balloon catheter along with achieve catheter placed in the left atrium. Pulmonary veins isolated in the following sequence: Left superior pulmonary vein followed by left inferior pulmonary vein, followed by right inferior pulmonary vein and lastly right superior pulmonary vein. Phrenic nerve stimulation along with capture thresholds within the SVC and right superior pulmonary vein to identify the phrenic nerve proximity to the cryo- balloon. Pulmonary veins isolated and confirmed with entrance and exit block. Phrenic nerve integrity confirmed at the end of the procedure Ablation of the left atrial septum performed with cannulation of the superior branch of the right inferior and the inferior branch of the right superior vein to achieve ablation of the posterior septum of the left atrium. Ablation of electrograms confirmed After completion of antral-level isolation of the left-sided pulmonary veins, ablation at the level of the jp was performed on the left side. This resulted in termination of atrial fibrillation Diagnostic catheters for the high right atrium, His bundle, coronary sinus placed. LA and RA pressures recorded LA pressure: Diagnostic EP study with coronary sinus pacing and recording Baseline measurements: Sinus cycling at 1162 ms, ND interval 187 ms, QRS 93 and QT 526 ms AH 84 and HV 43 ms Venous sheaths were removed and hemostasis assured with a closure device. Patient extubated and transferred to recovery PROCEDURES PERFORMED Diagnostic EP study CS pacing and recording Left and right transseptal catheterization Catheter the mapping of the tachycardia Intracardiac echocardiography Pulmonary vein isolation with transseptal and comprehensive EPS, [id number] Linear ablation, left atrium, +[id number]
[2025-04-02] MEDS: SODIUM CHLORIDE 0.9% NEBULIZ 3 ML INHALATION STA (19:56)
[2025-04-02 20:24] VITALS: BP 133/75; PULSE 81
[2025-04-02] MEDS ORDERED: METOPROLOL TARTRATE 50 MG TAB PO SCH (21:00)
== END 2025-04-02 22:30 | disposition home or self-care (01) ==
LOC: CATHEP 10:17 → 6NMEDSUR 14:20 → CATHEP 22:30
PROVIDERS: ATTEND Internal Medicine Clinical Cardiac Electrophysiology
DX: I48.19 Other persistent atrial fibrillation (principal); I10 Essential (primary) hypertension; I25.10 Atherosclerotic heart disease of native coronary artery without angina pectoris; E78.5 Hyperlipidemia, unspecified; G47.30 Sleep apnea, unspecified; J44.9 Chronic obstructive pulmonary disease, unspecified; G25.81 Restless legs syndrome; M15.9 Polyosteoarthritis, unspecified; Z91.89 Other specified personal risk factors, not elsewhere classified; Z79.51 Long term (current) use of inhaled steroids; Z79.01 Long term (current) use of anticoagulants; Z79.891 Long term (current) use of opiate analgesic; Z79.899 Other long term (current) drug therapy; Z87.891 Personal history of nicotine dependence; Z82.49 Family history of ischemic heart disease and other diseases of the circulatory system
CPT/HCPCS: 93656; 93657; 86900; 86901; 80053; 84443; 85025; 86850; C1894; C1769; C1760 ×2; C1730 ×2; C1733; C1766; J0330; J1644 ×3; J2003; J3010; J2704; Q9967; J2371